=== PATIENT | male | born 1950 | race Caucasian/White ===

== ENCOUNTER 2016-08-04 12:07 | Inpatient (IN) | payer MEDICARE, BC ==
--- NOTE | 2016-08-04 12:50 | ED ---
SOB HPI - General Chief Complaint: Shortness of Breath Stated Complaint: SOB Time Seen by Provider: 08/04/16 12:25 Source: patient, family, RN notes reviewed Mode of arrival: wheelchair Limitations: no limitations - History of Present Illness Initial Comments: This is a 66-year-old male with a history of COPD history of gout and history of constipation who presents with complaints of one week of intermittent shortness of breath also is a fevers chills sweats some phlegm production. He states he gets worsening afternoon. Also he was told his hemoglobin was only 8. He also states she did have an constipation he started on MiraLAX and then later milk of magnesia for past several days he's been having increased bowel movements was abdomen somewhat tender he states. No overt chest pain. No other symptoms reported at this time the patient does state that he was hospitalized early in July for gout in addition to having been told his hemoglobin is low he also apparently has diminished kidney function. He actually was scheduled to get blood testing today. MD Complaint: shortness of breath, cough - Related Data Home Medications Medication Instructions Recorded Confirmed Folic Acid 0.4 mg PO DAILY 09/10/15 08/04/16 Glimepiride [Amaryl] 4 mg PO BID 09/10/15 08/04/16 Nitroglycerin Sl Tabs [Nitrostat] 0.4 mg SUBLINGUAL Q5M PRN 09/10/15 08/04/16 Aspirin EC [Ecotrin Low Dose] 81 mg PO BID 01/22/16 08/04/16 Carvedilol 18.75 mg PO BID 01/22/16 08/04/16 Atorvastatin [Lipitor] 40 mg PO HS 07/05/16 08/04/16 HYDROcodone/APAP 7.5-325MG [[place] 1 tab PO Q6HR PRN 07/05/16 08/04/16 7.5-325] Multivitamins, Thera [Multivitamin] 1 tab PO HS 07/05/16 08/04/16 Furosemide [Lasix] 40 mg PO DAILY 08/04/16 08/04/16 Lisinopril [Zestril] 20 mg PO DAILY 08/04/16 08/04/16 Spironolactone [Aldactone] 25 mg PO DAILY 08/04/16 08/04/16 Previous Rx's Medication Instructions Recorded Clopidogrel [Plavix] 75 mg PO DAILY #30 tab 09/13/15 Allopurinol [Zyloprim] 100 mg PO DAILY #30 tab 07/08/16 amLODIPine [Norvasc] 10 mg PO DAILY #30 tab 07/08/16 hydrALAZINE HCL [Apresoline] 25 mg PO TID #90 tab 07/08/16 Allergies Allergy/AdvReac Type Severity Reaction Status Date / Time Iodinated Contrast Media - Allergy Unknown Verified 08/04/16 13:05 Oral and [Iodinated Contrast Media - IV Dye] cephalexin monohydrate AdvReac Unknown Verified 08/04/16 13:05 [From Keflex] Penicillins AdvReac Nausea & Verified 08/04/16 13:05 Vomiting Sulfa (Sulfonamide AdvReac Nausea & Verified 08/04/16 13:05 Antibiotics) Vomiting Review of Systems ROS Statement: Those systems with pertinent positive or pertinent negative responses have been documented in the HPI. ROS Other: All systems not noted in ROS Statement are negative. Past Medical History Past Medical History: Coronary Artery Disease (CAD), Chest Pain / Angina, Heart Failure, Diabetes Mellitus, Hyperlipidemia, Hypertension, Myocardial Infarction (MD), Prostate Disorder, Renal Disease Additional Past Medical History / Comment(s): CHB (has pacemaker), ischemic cardiomyopathy, pt is to go to of next week for laser lead extration or RV and placement of BiV ICD, IDDM type II, recent R elbow bursitis/cellulitis, bilateral cataracts, pt thinks he may have gout, constipation Last Myocardial Infarction Date:: 10/05/15 History of Any Multi-Drug Resistant Organisms: None Reported Past Surgical History: Coronary Bypass/CABG, Heart Catheterization, Heart Catheterization With Stent, Hernia Repair, Pacemaker Additional Past Surgical History / Comment(s): 10/22/15 upper extremity venogram , 2011 triple bypass at [facility], 2006 PCI with stent cx, 09/2015 PCI with stent to LAD, 10/2015 ccath treat medically, dual chamber pacemaker initial insertion 2004 and replaced in 2011, umbillical hernia repair, several nose sx d/t 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 Defibriliator in january 2016 Past Anesthesia/Blood Transfusion Reactions: No Reported Reaction Date of Last Stent Placement:: 09/2015 Type of Cardiac Device: Permanent Pacemaker Device Placement Date:: 2011 Past Psychological History: No Psychological Hx Reported Additional Psychological History / Comment(s): Pt states he resides with Shaunna. He is independent. He uses no assistive device. He drives. He has no home care use. Smoking Status: Former smoker Past Alcohol Use History: Daily Additional Past Alcohol Use History / Comment(s): smoked >40 years quit 2-16-12 , drinks 2 beer daily Past Drug Use History: None Reported - Past Family History Father Family Medical History: CVA/TIA Additional Family Medical History / Comment(s): age 83 had several strokes Mother Family Medical History: Cancer, Liver Disease, Osteoarthritis (OA) Additional Family Medical History / Comment(s): mom is still alive at age 91, hx breast cancer, emphysema (pt stated she never smoked) General Exam - General Exam Comments Initial Comments: This is a well-developed well-nourished awake alert oriented 3 male Limitations: no limitations General appearance: alert, in no apparent distress Head exam: Present: atraumatic, normocephalic, normal inspection Eye exam: Present: normal appearance, PERRL, EOMI. Absent: scleral icterus, conjunctival injection, periorbital swelling ENT exam: Present: normal exam, mucous membranes moist Neck exam: Present: normal inspection. Absent: tenderness, meningismus, lymphadenopathy Respiratory exam: Present: rales, decreased breath sounds. Absent: respiratory distress, wheezes, rhonchi, stridor Cardiovascular Exam: Present: regular rate, normal rhythm, normal heart sounds. Absent: systolic murmur, diastolic murmur, rubs, gallop, clicks GI/Abdominal exam: Present: soft, tenderness, normal bowel sounds. Absent: distended, guarding, rebound, rigid, bruit, pulsatile mass Rectal exam: Present: deferred Extremities exam: Present: normal inspection, full ROM, normal capillary refill , pedal edema. Absent: tenderness, joint swelling, calf tenderness Back exam: Present: normal inspection Neurological exam: Present: alert, oriented X3, CN II-XII intact Psychiatric exam: Present: normal affect, normal mood Skin exam: Present: warm, dry, intact, normal color. Absent: rash Course Vital Signs 08/04/16 08/04/16 08/04/16 12:15 12:42 12:59 Temperature 97.6 F Pulse Rate 61 64 Respiratory 18 18 18 Rate Blood Pressure 150/70 161/71 O2 Sat by Pulse 96 96 Oximetry 08/04/16 08/04/16 13:36 14:34 Temperature Pulse Rate 63 67 Respiratory 18 18 Rate Blood Pressure 169/77 170/87 O2 Sat by Pulse 97 97 Oximetry - Reevaluation(s) Reevaluation #1: 08/04/16 14:48 Reevaluation patient reveals mildly increased aeration way down demonstrates bilateral rales. Medical Decision Making - Medical Decision Making I did discuss findings with the patient family patient be admitted for evaluation by cardiology as well as nephrology. - Lab Data Result diagrams: 08/04/16 12:57 08/04/16 12:57 Lab Results 08/04/16 08/04/16 08/04/16 Range/Units 12:57 12:57 12:57 WBC 7.0 (3.8-10.6) k/uL RBC 3.24 L (4.30-5.90) m/uL Hgb 9.3 L D (13.0-17.5) gm/dL Hct 29.1 L (39.0-53.0) % MCV 89.9 (80.0-100.0) fL MCH 28.6 (25.0-35.0) pg MCHC 31.8 (31.0-37.0) g/dL RDW 13.9 (11.5-15.5) % Plt Count 127 L (150-450) k/uL Neutrophils % 83 % Lymphocytes % 7 % Monocytes % 5 % Eosinophils % 4 % Basophils % 0 % Neutrophils # 5.8 (1.3-7.7) k/uL Lymphocytes # 0.5 L (1.0-4.8) k/uL Monocytes # 0.4 (0-1.0) k/uL Eosinophils # 0.3 (0-0.7) k/uL Basophils # 0.0 (0-0.2) k/uL Hypochromasia Slight PT (9.0-12.0) sec INR (<1.1) APTT (22.0-30.0) sec Sodium 141 (137-145) mmol/L Potassium 6.0 H (3.5-5.1) mmol/L Chloride 108 H (98-107) mmol/L Carbon Dioxide 23 (22-30) mmol/L Anion Gap 10 mmol/L BUN 44 H (9-20) mg/dL Creatinine 2.03 H (0.66-1.25) mg/dL Est GFR (MDRD) Af Amer 40 (>60 ml/min/1.73 sqM) Est GFR (MDRD) Non-Af 33 (>60 ml/min/1.73 sqM) Glucose 81 (74-99) mg/dL Plasma Lactic Acid [place] (0.7-2.0) mmol/L Calcium 9.8 (8.4-10.2) mg/dL Magnesium 3.0 H (1.6-2.3) mg/dL Total Bilirubin 0.6 (0.2-1.3) mg/dL AST 32 (17-59) U/L ALT 40 (21-72) U/L Alkaline Phosphatase 119 (38-126) U/L Total Creatine Kinase 44 L (55-170) U/L CK-MB (CK-2) 1.1 (0.0-2.4) ng/mL CK-MB (CK-2) Rel Index 2.5 Troponin I 0.025 (0.000-0.034) ng/mL NT-Pro-B Natriuret Pep pg/mL Total Protein 6.2 L (6.3-8.2) g/dL Albumin 3.5 (3.5-5.0) g/dL Amylase 67 (30-110) U/L Lipase 68 (23-300) U/L Urine Color Urine Appearance (Clear) Urine pH (5.0-8.0) Ur Specific Mineral (1.001-1.035) Urine Protein (Negative) Urine Glucose (UA) (Negative) Urine Ketones (Negative) Urine Blood (Negative) Urine Nitrate (Negative) Urine Bilirubin (Negative) Urine Urobilinogen (<2.0) mg/dL Ur Leukocyte Esterase (Negative) Urine RBC (0-5) /hpf Urine WBC (0-5) /hpf Urine Mucus (None) /hpf 08/04/16 08/04/16 08/04/16 Range/Units 12:57 12:57 12:57 WBC (3.8-10.6) k/uL RBC (4.30-5.90) m/uL Hgb (13.0-17.5) gm/dL Hct (39.0-53.0) % MCV (80.0-100.0) fL MCH (25.0-35.0) pg MCHC (31.0-37.0) g/dL RDW (11.5-15.5) % Plt Count (150-450) k/uL Neutrophils % % Lymphocytes % % Monocytes % % Eosinophils % % Basophils % % Neutrophils # (1.3-7.7) k/uL Lymphocytes # (1.0-4.8) k/uL Monocytes # (0-1.0) k/uL Eosinophils # (0-0.7) k/uL Basophils # (0-0.2) k/uL Hypochromasia PT 10.0 (9.0-12.0) sec INR 1.0 (<1.1) APTT 20.5 L (22.0-30.0) sec Sodium (137-145) mmol/L Potassium (3.5-5.1) mmol/L Chloride (98-107) mmol/L Carbon Dioxide (22-30) mmol/L Anion Gap mmol/L BUN (9-20) mg/dL Creatinine (0.66-1.25) mg/dL Est GFR (MDRD) Af Amer (>60 ml/min/1.73 sqM) Est GFR (MDRD) Non-Af (>60 ml/min/1.73 sqM) Glucose (74-99) mg/dL Plasma Lactic Acid [place] <0.5 L (0.7-2.0) mmol/L Calcium (8.4-10.2) mg/dL Magnesium (1.6-2.3) mg/dL Total Bilirubin (0.2-1.3) mg/dL AST (17-59) U/L ALT (21-72) U/L Alkaline Phosphatase (38-126) U/L Total Creatine Kinase (55-170) U/L CK-MB (CK-2) (0.0-2.4) ng/mL CK-MB (CK-2) Rel Index Troponin I (0.000-0.034) ng/mL NT-Pro-B Natriuret Pep 2320 pg/mL Total Protein (6.3-8.2) g/dL Albumin (3.5-5.0) g/dL Amylase (30-110) U/L Lipase (23-300) U/L Urine Color Urine Appearance (Clear) Urine pH (5.0-8.0) Ur Specific Mineral (1.001-1.035) Urine Protein (Negative) Urine Glucose (UA) (Negative) Urine Ketones (Negative) Urine Blood (Negative) Urine Nitrate (Negative) Urine Bilirubin (Negative) Urine Urobilinogen (<2.0) mg/dL Ur Leukocyte Esterase (Negative) Urine RBC (0-5) /hpf Urine WBC (0-5) /hpf Urine Mucus (None) /hpf 08/04/16 Range/Units 12:57 WBC (3.8-10.6) k/uL RBC (4.30-5.90) m/uL Hgb (13.0-17.5) gm/dL Hct (39.0-53.0) % MCV (80.0-100.0) fL MCH (25.0-35.0) pg MCHC (31.0-37.0) g/dL RDW (11.5-15.5) % Plt Count (150-450) k/uL Neutrophils % % Lymphocytes % % Monocytes % % Eosinophils % % Basophils % % Neutrophils # (1.3-7.7) k/uL Lymphocytes # (1.0-4.8) k/uL Monocytes # (0-1.0) k/uL Eosinophils # (0-0.7) k/uL Basophils # (0-0.2) k/uL Hypochromasia PT (9.0-12.0) sec INR (<1.1) APTT (22.0-30.0) sec Sodium (137-145) mmol/L Potassium (3.5-5.1) mmol/L Chloride (98-107) mmol/L Carbon Dioxide (22-30) mmol/L Anion Gap mmol/L BUN (9-20) mg/dL Creatinine (0.66-1.25) mg/dL Est GFR (MDRD) Af Amer (>60 ml/min/1.73 sqM) Est GFR (MDRD) Non-Af (>60 ml/min/1.73 sqM) Glucose (74-99) mg/dL Plasma Lactic Acid [place] (0.7-2.0) mmol/L Calcium (8.4-10.2) mg/dL Magnesium (1.6-2.3) mg/dL Total Bilirubin (0.2-1.3) mg/dL AST (17-59) U/L ALT (21-72) U/L Alkaline Phosphatase (38-126) U/L Total Creatine Kinase (55-170) U/L CK-MB (CK-2) (0.0-2.4) ng/mL CK-MB (CK-2) Rel Index Troponin I (0.000-0.034) ng/mL NT-Pro-B Natriuret Pep pg/mL Total Protein (6.3-8.2) g/dL Albumin (3.5-5.0) g/dL Amylase (30-110) U/L Lipase (23-300) U/L Urine Color Light Yellow Urine Appearance Clear (Clear) Urine pH 5.5 (5.0-8.0) Ur Specific Mineral 1.005 (1.001-1.035) Urine Protein 1+ H (Negative) Urine Glucose (UA) Negative (Negative) Urine Ketones Negative (Negative) Urine Blood Negative (Negative) Urine Nitrate Negative (Negative) Urine Bilirubin Negative (Negative) Urine Urobilinogen <2.0 (<2.0) mg/dL Ur Leukocyte Esterase Negative (Negative) Urine RBC <1 (0-5) /hpf Urine WBC <1 (0-5) /hpf Urine Mucus Rare H (None) /hpf - EKG Data -: EKG Interpreted by Ne EKG shows normal: sinus rhythm (Pacemaker rhythm rate is 63. Arrival 180 QRS duration 158 daily since QTC of 480/491 no definite acute changes.) - Radiology Data Radiology results: report reviewed (Review the x-ray shows evidence of increased markings consistent with congestive failure.), image reviewed Critical Care Time Critical Care Time: Yes Critical Care Time: 32 minutes which includes initial history physical lab and x-ray evaluation. Reevaluation patient to responsive therapy. Review of old charting available. Discussion with patient family regarding findings. Discussed with the hospitalist. Initial orders and documentation the above. Disposition Clinical Impression: Congestive heart failure, Failure of outpatient treatment, Renal insufficiency syndrome, Bronchospasm, acute Disposition: ADMITTED IP TO THIS [facility] Condition: Stable
[2016-08-04 13:13] LABS: Appearance,Urine Clear (Clear); Bilirubin,Urine Negative (Negative); Glucose,Urine (UA) Negative (Negative); Ketones,Urine Negative (Negative); Leukocyte Esterase,Urine Negative (Negative); Mucus,Urine Rare /hpf; Nitrite,Urine Negative (Negative); PH, Urine 5.5 (5.0-8.0); Particle Count 672; Protein,Urine 1+ (Negative); RBC,Urine <1 /hpf (0-5); Specific Gravity,Urine 1.005 (1.001-1.035); UA Billing (MACRO vs. MICRO) MICRO; Urobilinogen,Urine <2.0 mg/dL (<2.0); WBC,Urine <1 /hpf (0-5)
[2016-08-04 13:20] LABS: Basophils % (A) 0 %; CH 28.2; CHCM 31.5; Eosinophils # (A) 0.3 k/uL (0-0.7); Eosinophils % (A) 4 %; HCT 29.1 % (39.0-53.0); HDW 2.88; Hypochromasia Slight; Luc # (Auto) 0.11; Luc % (Auto) 2; Lymphocytes # (A) 0.5 k/uL (1.0-4.8); Lymphocytes % (A) 7 %; MCH 28.6 pg (25.0-35.0); MCHC 31.8 g/dL (31.0-37.0); MCV 89.9 fL (80.0-100.0); Mean Platelet Volume 9.3; Monocytes # (A) 0.4 k/uL (0-1.0); Monocytes % (A) 5 %; Neutrophils # (A) 5.8 k/uL (1.3-7.7); Neutrophils % (A) 83 %; RBC 3.24 m/uL (4.30-5.90); RDW 13.9 % (11.5-15.5); WBC (Perox) 7.51
[2016-08-04 13:22] LABS: Calcium 9.8 mg/dL (8.4-10.2); Total Bilirubin 0.6 mg/dL (0.2-1.3)
[2016-08-04 13:27] LABS: HGB 9.3 gm/dL (13.0-17.5)
[2016-08-04 13:36] LABS: Total Protein 6.2 g/dL (6.3-8.2)
[2016-08-04 13:44] LABS: Partial Thromboplastin Time 20.5 sec (22.0-30.0)
--- NOTE | 2016-08-04 13:49 | XR ---
Abdomen HISTORY: Difficulty in breathing, shortness of breath, constipation Frontal view of the abdomen on 2 images, no comparisons Patient is post median sternotomy, fractured sternal wire present inferiorly. Intracardiac defibrilla tor leads are present. The heart is enlarged. Lung bases are clear. No bowel obstruction or pneumoper itoneum evident. There are air-filled loops of bowel with air-fluid levels without bowel distention. Probable vascular calcifications are present within the pelvis. Degenerative disc changes in the visu alized spine. I question some calcifications overlying the kidneys. Entire abdomen is not included on the exam. IMPRESSION: There are some limitations, there may be an underlying ileus or enteritis, follow-up as i ndicated should bowel obstruction be suspected clinically. Possible abdominal calcifications, difficu lt to exclude nephrolithiasis.
--- NOTE | 2016-08-04 13:51 | XR ---
EXAMINATION TYPE: XR chest 2V DATE OF EXAM: 08/04/2016 1:16 PM COMPARISON: Prior chest x-ray 07 July 2016 HISTORY: Difficulty breathing, shortness of breath TECHNIQUE: Frontal and lateral views of the chest are obtained. FINDINGS: Patient is post median sternotomy, inferior mediastinal wires fractured. Intracardiac defi brillator leads are overlying appropriate positions. No pneumothorax or sizable pleural effusion. The re are overlying cardiac leads. Interstitium is increased but improved. Increased AP diameter of the chest compatible with underlying COPD. The aorta is dense. Some minimal patchy increased density pres ent at the posterior costophrenic angle may be indicative of atelectasis or edema, correlate to exclu de pneumonia. IMPRESSION: Correlate for component of pulmonary venous hypertension and interstitial edema. Addition al findings above.
[2016-08-04 13:57] LABS: Creatine Kinase MB 1.1 ng/mL (0.0-2.4); Troponin I 0.025 ng/mL (0.000-0.034)
[2016-08-04] MEDS ORDERED: NITROGLYCERIN OINT 1 INCH/GM PACKET TOPICAL STA (14:49)
[2016-08-04] MEDS ORDERED: FUROSEMIDE 10 MG/ML 4 ML VIAL IV STA (14:49)
[2016-08-04] MEDS ORDERED: HYDROcodone/APAP 7.5-325MG 1 EACH TAB PO PRN (14:58)
[2016-08-04] MEDS ORDERED: FUROSEMIDE 10 MG/ML 4 ML VIAL IV SCH (15:00)
[2016-08-04] MEDS ORDERED: LEVOFLOXACIN 750MG-D5W PMX 750 MG in DEXTROSE/WATER 1 150ML.BAG IVPB STA (15:01)
[2016-08-04] MEDS: SODIUM CHLORIDE 0.9% 1,000 ML IV SCH (15:40)
[2016-08-04] MEDS ORDERED: IPRATROPIUM-ALBUTEROL 3 ML NEB INHALATION SCH (16:00)
[2016-08-04 17:15] LABS: Glucose,Whole Blood 88 mg/dL (75-99)
[2016-08-04] MEDS: hydrALAZINE HCL 25 MG TAB PO SCH ×2 (17:53→21:03)
[2016-08-04] MEDS: NITROGLYCERIN OINT 1 INCH/GM PACKET TOPICAL SCH ×2 (17:54→21:02)
[2016-08-04] MEDS: INSULIN LISPRO (humaLOG) 300 UNIT/3 ML VIAL SQ SCH ×2 (17:54→21:02)
[2016-08-04] MEDS ORDERED: IPRATROPIUM-ALBUTEROL 3 ML NEB INHALATION PRN (19:04)
[2016-08-04] MEDS: IPRATROPIUM-ALBUTEROL 3 ML NEB INHALATION SCH (20:20)
[2016-08-04 20:42] LABS: Glucose,Whole Blood 141 mg/dL (75-99)
[2016-08-04] MEDS ORDERED: SODIUM POLYSTYRENE SULFONATE 15 GM/60 ML BOTTLE PO STA (20:55)
[2016-08-04] MEDS: ATORVASTATIN 40 MG TAB PO SCH (21:03)
[2016-08-04] MEDS: CARVEDILOL 6.25 MG TAB PO SCH (21:03)
[2016-08-04] MEDS: GLIMEPIRIDE 4 MG TAB PO SCH (21:03)
[2016-08-04] MEDS: ASPIRIN 81 MG CHEW PO SCH (21:04)
[2016-08-04] MEDS: MULTIVITAMINS, THERA 1 EACH TAB PO SCH (21:04)
[2016-08-04] MEDS: FUROSEMIDE 10 MG/ML 4 ML VIAL IV SCH (22:59)
[2016-08-05] MEDS ORDERED: ALPRAZolam 0.25 MG TAB PO PRN (00:43)
[2016-08-05] MEDS ORDERED: TEMAZEPAM 15 MG CAP PO PRN (00:43)
[2016-08-05 06:21] LABS: Glucose,Whole Blood 81 mg/dL (75-99)
[2016-08-05] MEDS: INSULIN LISPRO (humaLOG) 300 UNIT/3 ML VIAL SQ SCH ×4 (06:36→20:45)
[2016-08-05] MEDS: FUROSEMIDE 10 MG/ML 4 ML VIAL IV SCH ×3 (06:40→21:45)
[2016-08-05] MEDS: CARVEDILOL 6.25 MG TAB PO SCH ×2 (07:54→20:48)
[2016-08-05] MEDS: amLODIPine 10 MG TAB PO SCH (07:55)
[2016-08-05] MEDS: ASPIRIN 81 MG CHEW PO SCH ×2 (07:55→20:48)
[2016-08-05] MEDS: CLOPIDOGREL 75 MG TAB PO SCH (07:55)
[2016-08-05] MEDS: ALLOPURINOL 100 MG TAB PO SCH (07:55)
[2016-08-05] MEDS: hydrALAZINE HCL 25 MG TAB PO SCH ×3 (07:56→20:48)
[2016-08-05] MEDS: NITROGLYCERIN OINT 1 INCH/GM PACKET TOPICAL SCH ×2 (08:01→12:09)
[2016-08-05] MEDS: GLIMEPIRIDE 4 MG TAB PO SCH ×2 (08:01→20:48)
[2016-08-05] MEDS: IPRATROPIUM-ALBUTEROL 3 ML NEB INHALATION SCH ×4 (08:48→19:26)
[2016-08-05] MEDS ORDERED: SPIRONOLACTONE 25 MG TAB PO SCH (09:00)
[2016-08-05] MEDS ORDERED: FUROSEMIDE 40 MG TAB PO SCH (09:00)
[2016-08-05] MEDS ORDERED: LISINOPRIL 20 MG TAB PO SCH (09:00)
[2016-08-05 09:13] LABS: Basophils % (A) 0 %; CH 28.1; CHCM 31.3; Eosinophils # (A) 0.2 k/uL (0-0.7); Eosinophils % (A) 5 %; HCT 28.5 % (39.0-53.0); Hypochromasia Slight; Luc # (Auto) 0.07; Luc % (Auto) 1; Lymphocytes # (A) 0.5 k/uL (1.0-4.8); Lymphocytes % (A) 10 %; MCH 28.5 pg (25.0-35.0); MCHC 31.7 g/dL (31.0-37.0); Mean Platelet Volume 9.6; Monocytes # (A) 0.3 k/uL (0-1.0); Monocytes % (A) 6 %; Neutrophils # (A) 3.8 k/uL (1.3-7.7); Neutrophils % (A) 78 %; RBC 3.17 m/uL (4.30-5.90); RDW 13.6 % (11.5-15.5); WBC 4.8 k/uL (3.8-10.6); WBC (Perox) 5.42
[2016-08-05 09:37] LABS: Calcium 10.2 mg/dL (8.4-10.2); Potassium 4.5 mmol/L (3.5-5.1); Total Bilirubin 0.4 mg/dL (0.2-1.3); Total Protein 5.9 g/dL (6.3-8.2)
--- NOTE | 2016-08-05 10:18 | HP ---
DATE OF ADMISSION: DATE OF SERVICE: 08/04/2016 CHIEF COMPLAINT: Shortness of breath. HISTORY OF PRESENT ILLNESS: This 66-year-old gentleman with a past medical history of multiple medical problems including CAD, history of chest pain, CHF, diabetes mellitus, hypertension, hyperlipidemia, myocardial infarction, prostate disorder, history of pacemaker, history of CAD, CABG and stent being followed by Dr. Sykes and Micaela Dey in the outpatient setting was complaining of shortness of breath over the past several days, which has increased in intensity. Patient also has orthopnea. The patient also had increasing weakness with bilateral leg edema also. Because of increasing problems, the patient came to [facility] and was admitted for further evaluation. The patient also has significant issues with constipation. Patient was taking MiraLAX and trying different [id number] products also. The patient was hospitalized in July when patient had renal failure and also flareup for gouty arthritis as well as CHF with ejection fraction of 50% also. The patient is thought to have ischemic cardiomyopathy also. The patient will be closely monitored. There is no history of fever or rigors. No history of headache, loss of consciousness or seizures at this time. PAST MEDICAL HISTORY: History of CAD, history of chest pain, CHF, diabetes mellitus type 2, hyperlipidemia, hypertension, history of myocardial infarction, prostate disorder, elbow, CAD, CABG, stent. Medications prior to admission include home medications are: 1. Aldactone 25 mg p.o. daily. 2. Nitrostat 0.4 sublingual p.r.n. 3. Zestril 20 mg daily. 4. Multivitamins 1 p.o. daily. 5. Hydrocodone 7.5 q.6 p.r.n. 6. Amaryl 4 mg b.i.d. 7. Folic acid 0.4 daily. 8. Apresoline 25 mg t.i.d. 9. Plavix 75 mg p.o. daily. 10. Lipitor 40 mg q.h.s. 11. Ecotrin 81 mg b.i.d. 12. Norvasc 10 mg p.o. daily. 13. Coreg 18.75 mg p.o. b.i.d. 14. Lasix 40 mg p.o. daily. 15. Zyloprim 100 mg p.o. daily. ALLERGIES: IODINATED CONTRAST DYE, CEPHALEXIN, PENICILLIN, SULFA. FAMILY HISTORY: History of CVA, TIA in the family. SOCIAL HISTORY: history of smoking. Occasional alcohol intake. REVIEW OF SYSTEMS: ENT: Diminished hearing and vision. CARDIOVASCULAR: As mentioned earlier. RESPIRATORY: As mentioned earlier. GI: No nausea. : As mentioned earlier. NERVOUS SYSTEM: No numbness or weakness. ALLERGY/IMMUNOLOGY: No asthma or hayfever. MUSCULOSKELETAL: As mentioned earlier. HEMATOLOGY/ONCOLOGY: No history of anemia. ENDOCRINE: No history of hypothyroidism. CONSTITUTIONAL: As mentioned earlier. DERMATOLOGY: Negative. RHEUMATOLOGY: Negative. PSYCHIATRY: As mentioned earlier. PHYSICAL EXAMINATION: the patient is alert and oriented x2. Pulse is 68, blood pressure 176/82, respirations 20, temperature 97 degrees, pulse ox 98% on 2 L. HEENT: Conjunctivae normal. NECK: No jugular venous distention. CARDIOVASCULAR: S1 and S2, muffled. RESPIRATORY: Breath sounds diminished at the bases. A few scattered rhonchi. A few basal crackles. ABDOMEN: Soft, nontender. No mass palpable. LEGS: Minimal edema. NERVOUS SYSTEM: Higher function as mentioned earlier. Moves all 4 limbs. No focal motor or sensory deficits. LYMPHATICS: No lymphadenopathy of neck, axillae or groin. SKIN: No ulcers, rashes or bleeding. Labs are WBC 7.0, hemoglobin is 9.3, otherwise, potassium 6, creatinine is 2.03, total protein 6.2. ASSESSMENT: 1. Congestive heart failure acute exacerbation with acute on chronic systolic dysfunction, ejection fraction 40%. 2. cardiomyopathy. 3. Acute renal failure, acute on chronic kidney disease with prerenal factors. 4. Chronic kidney disease, stage III. 5. Hyperkalemia secondary to renal failure. 6. Anemia, normocytic anemia of chronic disease. 7. Thrombocytopenia. 8. History of coronary artery disease. 9. History of congestive heart failure. 10. History of diabetes mellitus type 2. 11. Hypertension. 12. Hyperlipidemia. 13. History of pacemaker. 14. Ischemic cardiomyopathy. 15. Diabetes mellitus type 2. 16. History of coronary artery disease, coronary artery bypass grafting and stent. 17. History of pacemaker. 18. History of nicotine dependence. 19. History of AICD. 20. History of peripheral vascular disease. 21. History of gout. 22. History of moderate pulmonary hypertension, mild to moderate mitral regurgitation. 23. FULL CODE. RECOMMENDATIONS AND DISCUSSION: In this 66-year-old gentleman who presented with multiple complex medical issues, we will monitor the patient closely. Continue the current medications. Continue symptomatic treatment. Otherwise, at this time I recommend repeat labs in the morning and Nephrology and Cardiology consultations. Avoid potassium and MIC inhibitors and continue to monitor. Further recommendations to follow. Home medication reconciliation. Prognosis guarded. Further recommendations to follow. A copy of dictation forwarded to Dr. Sykes who is the primary physician. TIFFANIE
[2016-08-05 10:30] LABS: Hemoglobin A1C 7.6 % (4.2-6.1)
[2016-08-05] MEDS: FOLIC ACID 1 MG TAB PO SCH (12:03)
[2016-08-05 12:09] LABS: Glucose,Whole Blood 288 mg/dL (75-99)
--- NOTE | 2016-08-05 14:05 | P.CRDCN ---
History of Present Illness Consult date: 08/05/16 Requesting physician: Ramsey Nam Consult reason: congestive heart failure Chief complaint: Shortness of breath History of present illness: This is a 66-year-old gentleman with known history of hypertension, diabetes, hyperlipidemia, prior bypass surgery in 2011, patient also underwent successful stenting of the LAD in September of last year, with subsequent heart cath in September which revealed patent stents in the distal LAD. Patient follows regularly with Dr. Flower in the office. He also has history of prior pacemaker implantation with upgrade to by V AICD which was performed in September of last year.. Patient presents to the hospital with a 4-5 duration of worsening shortness of breath and peripheral edema. Patient states that he's also been constipated for the same duration of time Chest x-ray on admission revealed pulmonary venous hypertension and interstitial edema. Ultrasound of the abdomen was performed because of symptoms of constipation, it revealed there may be underlying ileus or enteritis. EKG shows a paced rhythm. Most recent echocardiogram with Doppler study was performed one month ago revealed an ejection fraction of 55-60%. Data reviewed. Hemoglobin 9.3 yesterday, 9.0 today. Potassium 6.0 yesterday, 4.5 today. BUN 42, creatinine 2.1. Magnesium level 3.0. BNP level 2320. Troponins 0.025, 020, 0.028. Patient was initiated on IV Lasix in the emergency room, his weight today is down 2 kg. He continues to diurese well. At the time of my examination today, patient states he is ready feeling much better. Past Medical History Past Medical History: Coronary Artery Disease (CAD), Chest Pain / Angina, Heart Failure, Diabetes Mellitus, Hyperlipidemia, Hypertension, Myocardial Infarction ([place]), Prostate Disorder, Renal Disease Additional Past Medical History / Comment(s): CHB (has pacemaker), ischemic cardiomyopathy, pt is to go to [facility] next week for laser lead extration or RV and placement of BiV ICD, IDDM type II, recent R elbow bursitis/cellulitis, bilateral cataracts, pt thinks he may have gout,pt stated was taking medication to help with his constipation and now is having loose stool Last Myocardial Infarction Date:: 10/05/15 History of Any Multi-Drug Resistant Organisms: None Reported Past Surgical History: Coronary Bypass/CABG, Heart Catheterization, Heart Catheterization With Stent, Hernia Repair, Pacemaker Additional Past Surgical History / Comment(s): 10/22/15 upper extremity venogram , 2011 triple bypass at [facility], 2006 PCI with stent cx, 09/2015 PCI with stent to LAD, 10/2015 ccath treat medically, dual chamber pacemaker initial insertion 2004 and replaced in 2011, umbillical hernia repair, several nose sx d/t 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 Defibriliator in january 2016 Past Anesthesia/Blood Transfusion Reactions: No Reported Reaction Date of Last Stent Placement:: 09/2015 Type of Cardiac Device: Permanent Pacemaker Device Placement Date:: 2011 Past Psychological History: No Psychological Hx Reported Additional Psychological History / Comment(s): Pt states he resides with [place]un[place]. He is independent. He uses no assistive device. He drives. He has no home care use. Smoking Status: Former smoker Past Alcohol Use History: Daily Additional Past Alcohol Use History / Comment(s): smoked >40 years quit 2-12 , drinks 2 beer daily Past Drug Use History: None Reported - Past Family History Father Family Medical History: CVA/TIA Additional Family Medical History / Comment(s): age 83 had several strokes Mother Family Medical History: Cancer, Liver Disease, Osteoarthritis (OA) Additional Family Medical History / Comment(s): mom is still alive at age 91, hx breast cancer, emphysema (pt stated she never smoked) Medications and Allergies Home Medications Medication Instructions Recorded Confirmed Type Folic Acid 0.4 mg PO DAILY 09/10/15 08/04/16 History Glimepiride [Amaryl] 4 mg PO BID 09/10/15 08/04/16 History Nitroglycerin Sl Tabs [Nitrostat] 0.4 mg SUBLINGUAL Q5M PRN 09/10/15 08/04/16 History Aspirin EC [Ecotrin Low Dose] 81 mg PO BID 01/22/16 08/04/16 History Carvedilol 18.75 mg PO BID 01/22/16 08/04/16 History Atorvastatin [Lipitor] 40 mg PO HS 07/05/16 08/04/16 History HYDROcodone/APAP 7.5-325MG [Ver[place] 1 tab PO Q6HR PRN 07/05/16 08/04/16 History 7.5-325] Multivitamins, Thera [Multivitamin] 1 tab PO HS 07/05/16 08/04/16 History Furosemide [Lasix] 40 mg PO DAILY 08/04/16 08/04/16 History Lisinopril [Zestril] 20 mg PO DAILY 08/04/16 08/04/16 History Spironolactone [Aldactone] 25 mg PO DAILY 08/04/16 08/04/16 History Allergies Allergy/AdvReac Type Severity Reaction Status Date / Time Iodinated Contrast Media - Allergy Unknown Verified 08/04/16 13:05 Oral and [Iodinated Contrast Media - IV Dye] cephalexin monohydrate AdvReac Unknown Verified 08/04/16 13:05 [From Keflex] Penicillins AdvReac Nausea & Verified 08/04/16 13:05 Vomiting Sulfa (Sulfonamide AdvReac Nausea & Verified 08/04/16 13:05 Antibiotics) Vomiting Physical Exam Vitals: Vital Signs Temp Pulse Pulse Resp BP BP Pulse Ox 08/05/16 12:00 66 17 166/77 95 08/05/16 09:05 78 08/05/16 08:48 80 17 93 L 08/05/16 08:00 59 L 17 08/05/16 07:53 97.9 F 59 L 17 177/72 93 L 08/05/16 04:00 97.2 F L 62 18 155/70 97 08/05/16 00:00 97.5 F L 60 18 157/76 95 08/04/16 20:27 80 08/04/16 20:16 80 08/04/16 20:00 97.2 F L 63 18 177/78 94 L 08/04/16 16:49 97 F L 76 68 20 176/82 98 08/04/16 16:46 68 08/04/16 16:08 98.0 F 08/04/16 15:34 67 18 166/74 96 08/04/16 14:58 63 18 182/79 96 Intake and Output 08/04/16 08/05/16 08/05/16 22:59 06:59 14:59 Intake Total 300 200 200 Output Total 855 1475 800 Balance -255 -1078 -808 Intake: IV 200 Sodium Chloride 0.9% 1, 200 000 ml @ 20 mls/hr IV . Q24H [facility] Rx#:[id number] Oral 300 200 Output: Urine 775 1475 800 Other: Voiding Method Toilet Toilet Toilet Urinal Urinal Urinal Weight 86.7 kg 85 kg PHYSICAL EXAMINATION: HEENT: Head is atraumatic, normocephalic. Pupils equal, round. Neck is supple. There is no elevated jugular venous pressure. HEART EXAMINATION: Heart S1, S2 normal. No murmur or gallop heard. CHEST EXAMINATION: Lungs reveal diminished air entry to bilateral bases. ABDOMEN: Soft, nontender. Bowel sounds are heard. No organomegaly noted. EXTREMITIES:1+ pulses with trace edema bilaterally NEUROLOGIC patient is awake, alert and oriented -3. . Results 08/05/16 03:18 08/05/16 03:18 Cardiac Enzymes 08/04/16 08/05/16 08/05/16 Range/Units 19:21 03:18 03:18 AST 18 (17-59) U/L Troponin I 0.020 0.028 (0.000-0.034) ng/mL CBC 08/05/16 Range/Units 03:18 WBC 4.8 (3.8-10.6) k/uL RBC 3.17 L (4.30-5.90) m/uL Hgb 9.0 L (13.0-17.5) gm/dL Hct 28.5 L (39.0-53.0) % Plt Count 139 L (150-450) k/uL Comprehensive Metabolic Panel 08/05/16 Range/Units 03:18 Sodium 143 (137-145) mmol/L Potassium 4.5 (3.5-5.1) mmol/L Chloride 107 (98-107) mmol/L Carbon Dioxide 25 (22-30) mmol/L BUN 42 H (9-20) mg/dL Creatinine 2.15 H (0.66-1.25) mg/dL Glucose 93 (74-99) mg/dL Calcium 10.2 (8.4-10.2) mg/dL AST 18 (17-59) U/L ALT 39 (21-72) U/L Alkaline Phosphatase 117 (38-126) U/L Total Protein 5.9 L (6.3-8.2) g/dL Albumin 3.3 L (3.5-5.0) g/dL Current Medications Generic Name Dose Route Start Last Admin Trade Name Freq PRN Reason Stop Dose Admin Acetaminophen/Hydrocodone Bitart 1 each 08/04/16 14:58 Verona 7.5-325 PO Q6HR PRN Pain Albuterol/Ipratropium 3 ml 08/04/16 19:04 Duoneb 0.5 Mg-3 Mg/3 Ml Soln INHALATION RT-QID PRN Shortness Of Breath Or Wheezing Albuterol/Ipratropium 3 ml 08/04/16 20:00 08/05/16 08:48 Duoneb 0.5 Mg-3 Mg/3 Ml Soln INHALATION 3 ml RT-QID [facility]IN Administration Allopurinol 100 mg 08/05/16 09:00 08/05/16 07:55 Zyloprim PO 100 mg DAILY [facility] Administration Alprazolam 0.25 mg 08/05/16 00:43 Xanax PO TID PRN Anxiety Amlodipine Besylate 10 mg 08/05/16 09:00 08/05/16 07:55 Norvasc PO 10 mg DAILY [facility] Administration Aspirin 81 mg 08/04/16 21:00 08/05/16 07:55 Aspirin PO 81 mg BID AG[facility]IN Administration Atorvastatin Calcium 40 mg 08/04/16 21:00 08/04/16 21:03 Lipitor PO 40 mg HS [facility] Administration Carvedilol 18.75 mg 08/04/16 21:00 08/05/16 07:54 Coreg PO 18.75 mg BID AG[facility]IN Administration Clopidogrel Bisulfate 75 mg 08/05/16 09:00 08/05/16 07:55 Plavix PO 75 mg DAILY AG[facility] Administration Folic Acid 0.5 mg 08/05/16 12:00 08/05/16 12:03 Folic Acid PO 0.5 mg DAILY@1200 [facility] Administration Furosemide 40 mg 08/04/16 23:00 08/05/16 06:40 Lasix IV 40 mg Q8H [facility] Administration Glimepiride 4 mg 08/04/16 21:00 08/05/16 08:01 Amaryl PO 4 mg BID [facility] Administration Hydralazine HCl 25 mg 08/04/16 16:00 08/05/16 07:56 Apresoline PO 25 mg TID [facility] Administration Sodium Chloride 1,000 mls @ 20 mls/hr 08/04/16 15:00 08/04/16 15:40 Saline 0.9% IV 20 mls/hr .Q24H [facility] Administration Insulin Human Lispro 0 unit 08/04/16 17:30 08/05/16 12:09 Humalog SQ Not Given ACHS [facility] Protocol Lisinopril 20 mg 08/05/16 09:00 08/05/16 07:56 Zestril PO 20 mg DAILY [facility] Administration Multivitamins 1 each 08/04/16 21:00 08/04/16 21:04 Theragran PO 1 each HS AG[facility] Administration Nitroglycerin 1 inch 08/04/16 18:00 08/05/16 12:09 Nitro-Bid Oint TOPICAL Not Given QID [facility] Spironolactone 25 mg 08/05/16 09:00 08/05/16 12:04 Aldactone PO 25 mg DAILY [facility] Administration Temazepam 15 mg 08/05/16 00:43 Restoril PO HS PRN Insomnia Intake and Output 08/04/16 08/05/16 08/05/16 22:59 06:59 14:59 Intake Total 300 200 200 Output Total 775 1475 800 Balance -024 -4350 -600 Intake: IV 200 Sodium Chloride 0.9% 1, 200 000 ml @ 20 mls/hr IV . Q24H [facility] Rx#:[id number] Oral 300 200 Output: Urine 775 1475 800 Other: Voiding Method Toilet Toilet Toilet Urinal Urinal Urinal Weight 86.7 kg 85 kg 08/05/16 03:18 08/05/16 03:18 EKG Interpretations (text) EKG shows a paced rhythm Assessment and Plan Plan: Assessment and plan #1 congestive heart failure, diastolic in nature. Patient currently on IV Lasix. #2 known history of coronary artery disease with prior bypass surgery in 1999 and, patient also underwent stenting of the LAD last year. #3 hypertension #4 hyperlipidemia # 5 diabetes #6 prior history of smoking, patient quit smoking in 2011 #7 history of pacemaker implantation without upgrade of BIV AICD last year. #8 peripheral vascular disease #9 anemia #10 acute on chronic renal insufficiency. Plan From cardiology's perspective, we'll continue IV Lasix, continue to monitor intake and output along with daily weights and daily lytes BUN and creatinine. Recommend nephrology consultation. Stool for occult blood will also be sent. We will hold lisinopril because of the abnormal renal function, further recommendations to follow. DNP note has been reviewed, I agree with a documented findings and plan of care. Patient was seen and examined.
--- NOTE | 2016-08-05 14:06 | CONS ---
DATE OF CONSULTATION: REASON FOR CONSULT: Renal failure. HISTORY OF PRESENT ILLNESS: Patient is a 66-year-old white male who was admitted to the hospital with shortness of breath, increased lower extremity edema and fluid overload. He states he is feeling better. He is maintained on diuretics. He is known to have CKD and is scheduled to see us in the office in the next week or so. Patient's serum creatinine was at 2.1 mg/dL, prior creatinine had been as low as 1.1 in December of 2015. After that it had been as high as 2.50 on 07/05/2016 and then decreased to 1.83 on 07/08/2016. PAST MEDICAL HISTORY: Hypertension, dyslipidemia, coronary artery disease, type 2 diabetes, history of NV, ischemic cardiomyopathy, gout. PAST SURGICAL HISTORY: Coronary artery bypass surgery, cardiac catheterization, hernia repair, pacemaker placement, hemorrhoidectomy, defibrillator. SOCIAL HISTORY: The patient is an ex-smoker. No history of drug abuse or alcohol abuse. REVIEW OF SYSTEMS: As per HPI. Other systems negative. Medications included at home: Folic acid, Amaryl, Nitrostat, Lipitor, Lasix, Zestril, Aldactone, hydralazine, Norvasc, Zyloprim, Plavix. Allergies include PENICILLIN, SULFA, IV DYE, KEFLEX. On examination, patient is comfortable, awake, alert, oriented x3. He is not in any acute distress. Blood pressure is 166/77, heart rate 93 per minute. He is afebrile. Examination of the heart S1 and S2. Examination of the lungs, bilateral breath sounds are heard. Decreased breath sounds in bases with basal crackles. Abdomen is soft, nontender. Examination of the lower extremities shows edema 1+ bilaterally. AGILE [employer] exam is grossly intact. Labs show sodium 143, potassium 4.5, serum creatinine 2.15 mg/dL, hemoglobin 9.3 g/dL, UA shows 1+ protein. No blood is noted. Chest x-ray on admission showed evidence of CHF, pulmonary vascular congestion and interstitial edema. ASSESSMENT: 1. Acute kidney injury, most likely cardiorenal, currently maintained on Lasix 40 mg q.8 hours, which we can continue. 2. Chronic kidney disease with an element of acute kidney injury. Patient's serum creatinine has been as low as 1.1 in December of 2015. He is scheduled to see us in the office for evaluation of the CKD and possible acute kidney injury as well. 3. Congestive heart failure and fluid overload. Continue diuretics. Echocardiogram done on 07/08/2016 showed ejection fraction of about 55% to 60% with moderate dilatation of the right ventricle and severely dilated left atrium with moderate concentric left ventricular hypertrophy. Plan is to follow up as outpatient for chronic kidney disease. Continue current dose of Lasix. Repeat labs in the a.m. Avoid nephrotoxic agents. If blood pressure remains elevated, we can maintain patient on low-dose MIC inhibitors as long as the renal function does not worsen. I will also check iron studies for work-up for anemia if it was not done on his last admission. Thank you for this consultation. Will continue to follow the patient with you during his hospitalization.
[2016-08-05] MEDS ORDERED: LACTULOSE 20 GM/30 ML CUP PO SCH (15:00)
[2016-08-05] MEDS ORDERED: NA PHOS,M-B/NA PHOS,DI-BA 133 ML ENEMA RECTAL STA (15:04)
[2016-08-05] MEDS: DOCUSATE 100 MG CAP PO SCH ×2 (15:25→21:45)
[2016-08-05] MEDS: SODIUM CHLORIDE 0.9% 1,000 ML IV SCH (15:54)
--- NOTE | 2016-08-05 15:56 | CDI ---
In responding to this query, please exercise your independent professional judgment. The [facility] Coding Staff and Clinical Documentation Specialists appreciate your assistance in clarifying documentation, maintaining compliance with coding guidelines, accurately documenting patients condition and capturing severity of illness. The fact that a question is asked does not imply that any particular answer is desired or expected. Communication forms are a method of clarifying documentation and are not made part of the Legal Health Record. Thank you in advance for your clarification. Last Revision, October 2015 Marga Orta [address] [place] [address] Documentation Clarification Form Date: 08/05/2016 3:45:00 PM From: Josiane Manzano CCS, CCDS Admit Date: 08/04/2016 2:54:00 PM Patient Name: Cory Magdaleno Visit Number: [id number] Discharge Date: Dr. Rigoberto Carbajal: CHF is documented in the cardiology consultation as diastolic with no further acuity. History/Risk Factors: CAD, Ischemic Cardiomyopathy status post CABG, Heart Cath w/stent, Pacemaker. Also has IDDM II and CKD II per H&P. Clinical Indicators: Presented with SOB, low hemoglobin (8). VS: P 61, R 18 (sob), BP 150/70, PO 96 ra BNP: 2320 Echocardiogram Results: (from one month ago): EF 55-60%. Chest X Ray: Correlate for pulmonary venous hypertension & interstitial edema. Treatment: IV Lasix. Nitropaste, IV Levaquin, Albuterol INH, Insulin sc Consults: Nephrology, Cardiology, Dietitian, Cardiac Rehab In your professional opinion, can you please clarify the acuity and type of CHF if known? Acute Chronic Acute on Chronic AND Systolic Diastolic Systolic and Diastolic Cor Pulmonale (Right Sided HF w/ Pulmonary HTN) Unable to determine Other, please specify If known, please specify if Heart Failure is due to: Hypertension Rheumatic Fever Please document in your progress notes and discharge summary in order to capture severity of illness and risk of mortality. Include clinical findings that support your diagnosis. FYI: Press F11 to launch patient chart. Place X here if this finding has no clinical significance, is not applicable or if you are not able to provide any additional documentation. Thank You. X I did not see this patient. FREEDOMD
[2016-08-05 17:02] LABS: Glucose,Whole Blood 192 mg/dL (75-99)
[2016-08-05] MEDS: MULTIVITAMINS, THERA 1 EACH TAB PO SCH (20:48)
[2016-08-05] MEDS: ATORVASTATIN 40 MG TAB PO SCH (20:48)
[2016-08-05 21:08] LABS: Glucose,Whole Blood 172 mg/dL (75-99)
[2016-08-06 06:04] LABS: Basophils % (A) 1 %; CH 28.5; CHCM 32.1; Eosinophils # (A) 0.2 k/uL (0-0.7); Eosinophils % (A) 4 %; HCT 29.2 % (39.0-53.0); HDW 2.88; HGB 9.1 gm/dL (13.0-17.5); Luc % (Auto) 2; Lymphocytes # (A) 0.6 k/uL (1.0-4.8); Lymphocytes % (A) 11 %; MCH 27.8 pg (25.0-35.0); MCHC 31.2 g/dL (31.0-37.0); MCV 89.1 fL (80.0-100.0); Mean Platelet Volume 9.8; Monocytes # (A) 0.3 k/uL (0-1.0); Monocytes % (A) 6 %; Neutrophils # (A) 3.6 k/uL (1.3-7.7); Neutrophils % (A) 76 %; RBC 3.27 m/uL (4.30-5.90); WBC 4.8 k/uL (3.8-10.6); WBC (Perox) 5.01
[2016-08-06 06:13] LABS: Calcium 10.2 mg/dL (8.4-10.2); Potassium 4.1 mmol/L (3.5-5.1)
[2016-08-06] MEDS: INSULIN LISPRO (humaLOG) 300 UNIT/3 ML VIAL SQ SCH ×4 (06:19→21:46)
[2016-08-06] MEDS: FUROSEMIDE 10 MG/ML 4 ML VIAL IV SCH ×3 (06:25→21:45)
[2016-08-06 06:41] LABS: Glucose,Whole Blood 105 mg/dL (75-99)
[2016-08-06] MEDS: hydrALAZINE HCL 25 MG TAB PO SCH ×3 (08:19→21:45)
[2016-08-06] MEDS: ASPIRIN 81 MG CHEW PO SCH ×2 (08:19→21:45)
[2016-08-06] MEDS: GLIMEPIRIDE 4 MG TAB PO SCH ×2 (08:19→21:45)
[2016-08-06] MEDS: CARVEDILOL 6.25 MG TAB PO SCH ×2 (08:19→21:45)
[2016-08-06] MEDS: DOCUSATE 100 MG CAP PO SCH ×2 (08:19→21:44)
[2016-08-06] MEDS: ALLOPURINOL 100 MG TAB PO SCH (08:19)
[2016-08-06] MEDS: amLODIPine 10 MG TAB PO SCH (08:19)
[2016-08-06] MEDS: CLOPIDOGREL 75 MG TAB PO SCH (08:19)
[2016-08-06] MEDS: IPRATROPIUM-ALBUTEROL 3 ML NEB INHALATION SCH ×4 (08:24→19:07)
--- NOTE | 2016-08-06 09:49 | PN ---
DATE OF SERVICE: 08/05/2016 This is a 66-year-old gentleman who was admitted with shortness of breath and CHF acute exacerbation. Is being closely monitored. Seen and evaluated the patient with the nurse practitioner. Please refer to the nurse practitioner's notes and impression document as ascribed for further information.
[2016-08-06] MEDS: FOLIC ACID 1 MG TAB PO SCH (11:10)
[2016-08-06 11:51] LABS: Glucose,Whole Blood 251 mg/dL (75-99)
[2016-08-06 14:25] VITALS: BMI 26.2
--- NOTE | 2016-08-06 14:53 | P.PN ---
Subjective Principal diagnosis: Diastolic congestive heart failure acute on chronic This is a 66-year-old gentleman with known history of hypertension, diabetes, hyperlipidemia, prior bypass surgery in 2011, patient also underwent successful stenting of the LAD in September of last year, with subsequent heart cath in September which revealed patent stents in the distal LAD. Patient follows regularly with Dr. Higgins in the office. He also has history of prior pacemaker implantation with upgrade to by V AICD which was performed in September of last year.. Patient presents to the hospital with a 4-5 duration of worsening shortness of breath and peripheral edema. Patient states that he's also been constipated for the same duration of time Chest x-ray on admission revealed pulmonary venous hypertension and interstitial edema. Ultrasound of the abdomen was performed because of symptoms of constipation, it revealed there may be underlying ileus or enteritis. EKG shows a paced rhythm. Most recent echocardiogram with Doppler study was performed one month ago revealed an ejection fraction of 55-60%. Patient diuresed well on IV Lasix. Total weight is down 6 kg. Hemoglobin 9.1, BUN 41, creatinine 2.1. Objective - Vital Signs Vital signs: Vital Signs Temp 97.5 F L 08/06/16 08:10 Pulse 84 08/06/16 11:55 Resp 12 08/06/16 11:21 BP 161/70 08/06/16 11:10 Pulse Ox 95 08/06/16 11:45 Intake & Output 08/05/16 08/06/16 08/06/16 18:59 06:59 18:59 Intake Total 200 240 560 Output Total 800 1200 400 Balance -600 -960 160 Weight 80.4 kg 80.4 kg Intake: IV 160 Sodium Chloride 0.9% 1, 160 000 ml @ 20 mls/hr IV . Q24H [facility] Rx#:[id number] Oral 200 240 400 Output: Urine 800 1200 400 Other: Voiding Method Toilet Toilet Urinal Urinal # Voids 1 # Bowel Movements 1 - Exam PHYSICAL EXAMINATION: HEENT: Head is atraumatic, normocephalic. Pupils equal, round. Neck is supple. There is no elevated jugular venous pressure. HEART EXAMINATION: Heart S1, S2 normal. No murmur or gallop heard. CHEST EXAMINATION: Lungs reveal diminished air entry to bilateral bases. ABDOMEN: Soft, nontender. Bowel sounds are heard. No organomegaly noted. EXTREMITIES:1+ pulses with trace edema bilaterally NEUROLOGIC patient is awake, alert and oriented -3. - Labs CBC & Chem 7: 08/06/16 05:41 08/06/16 05:41 Labs: Abnormal Lab Results - Last 24 Hours (Table) 08/05/16 08/05/16 08/06/16 Range/Units 16:48 20:45 05:41 RBC 3.27 L (4.30-5.90) m/uL Hgb 9.1 L (13.0-17.5) gm/dL Hct 29.2 L (39.0-53.0) % Plt Count 136 L (150-450) k/uL Lymphocytes # 0.6 L (1.0-4.8) k/uL BUN (9-20) mg/dL Creatinine (0.66-1.25) mg/dL Glucose (74-99) mg/dL POC Glucose (mg/dL) 192 H 172 H (75-99) mg/dL 08/06/16 08/06/16 08/06/16 Range/Units 05:41 06:18 11:42 RBC (4.30-5.90) m/uL Hgb (13.0-17.5) gm/dL Hct (39.0-53.0) % Plt Count (150-450) k/uL Lymphocytes # (1.0-4.8) k/uL BUN 41 H (9-20) mg/dL Creatinine 2.10 H (0.66-1.25) mg/dL Glucose 108 H (74-99) mg/dL POC Glucose (mg/dL) 105 H 251 H (75-99) mg/dL Assessment and Plan Plan: Assessment and plan #1 congestive heart failure, diastolic in nature, acute on chronic. Patient currently on IV Lasix. #2 known history of coronary artery disease with prior bypass surgery in 1999 and, patient also underwent stenting of the LAD last year. #3 hypertension #4 hyperlipidemia # 5 diabetes #6 prior history of smoking, patient quit smoking in 2011 #7 history of pacemaker implantation without upgrade of BIV AICD last year. #8 peripheral vascular disease #9 anemia #10 acute on chronic renal insufficiency. Plan From cardiology's perspective, we'll discontinue the IV Lasix today and start the patient on Lasix 40 mg one tablet by mouth twice a day. He may be able to be discharged home once cleared by the primary, a follow-up appointment will be made in the office post discharge with Dr. Field. DNP note has been reviewed, I agree with a documented findings and plan of care. Patient was seen and examined.
[2016-08-06] MEDS: SODIUM CHLORIDE 0.9% 1,000 ML IV SCH (16:02)
[2016-08-06 16:51] LABS: Glucose,Whole Blood 162 mg/dL (75-99)
--- NOTE | 2016-08-06 19:23 | PN ---
Patient is seen for follow-up for chronic kidney disease and an acute kidney injury. He is currently comfortable, awake, not in any acute distress. His weight is down by about 5 kg from yesterday. He was being treated for congestive heart failure and fluid overload. Lasix is currently at 40 mg IV q.8 hours. Serum creatinine has been staying at about 2.02 to 2.1 mg/dL. On examination, the patient is comfortable. Blood pressure is 161/70, heart rate 70 per minute. The patient is afebrile. Examination of the heart S1 and S2. Examination of the lungs: Bilateral breath sounds are heard. Decreased breath sounds in bases. No crackles or wheezing is heard. Abdomen is soft, nontender. Examination of lower extremities shows in no significant edema. Labs show sodium 143, potassium 4.1, BUN 41, serum creatinine 2.1. Hemoglobin 9.1 g/dL. ASSESSMENT: 1. Chronic kidney disease, NKF stage III with previous creatinine at 1.1 in December 2015 and subsequently staying at about 1.9 to 2 mg/dL in July 2016. Etiology is likely nephrosclerosis with an element of diabetic nephropathy as patient does have proteinuria. 2. Acute kidney injury, mainly cardiorenal. Renal function is stable. May continue with current dose of IV Lasix and repeat labs in the a.m. 3. Hypertension, now improved. 4. Cardiomyopathy with ejection fraction of 55% to 60% with moderate right ventricular dilatation and severely dilated left atrium with evidence of moderate concentric LVH. PLAN: Repeat labs in a.m. May continue current dose of IV Lasix.
--- NOTE | 2016-08-06 19:41 | PN ---
DATE OF SERVICE: 08/06/2016 This 66-year-old gentleman admitted with shortness of breath, congestive heart failure acute exacerbation, is closely monitored. Seen and evaluated the patient along with the nurse practitioner. Please refer to the nurse practitioner notes and impression documented for further information. Closely follow with Cardiology. Guarded prognosis. Further recommendations to follow.
[2016-08-06 21:09] LABS: Glucose,Whole Blood 245 mg/dL (75-99)
[2016-08-06] MEDS: MULTIVITAMINS, THERA 1 EACH TAB PO SCH (21:45)
[2016-08-06] MEDS: ATORVASTATIN 40 MG TAB PO SCH (21:45)
[2016-08-07] MEDS: FUROSEMIDE 10 MG/ML 4 ML VIAL IV SCH (06:10)
[2016-08-07 06:21] LABS: Glucose,Whole Blood 122 mg/dL (75-99)
[2016-08-07] MEDS: INSULIN LISPRO (humaLOG) 300 UNIT/3 ML VIAL SQ SCH (06:37)
[2016-08-07 06:44] LABS: Basophils % (A) 1 %; CH 28.3; CHCM 31.9; Eosinophils # (A) 0.2 k/uL (0-0.7); Eosinophils % (A) 3 %; HDW 2.87; HGB 9.3 gm/dL (13.0-17.5); Hypochromasia Slight; Luc # (Auto) 0.13; Luc % (Auto) 2; Lymphocytes # (A) 0.5 k/uL (1.0-4.8); Lymphocytes % (A) 9 %; MCH 28.6 pg (25.0-35.0); MCHC 32.1 g/dL (31.0-37.0); Mean Platelet Volume 9.2; Monocytes # (A) 0.4 k/uL (0-1.0); Monocytes % (A) 6 %; Neutrophils # (A) 4.7 k/uL (1.3-7.7); Neutrophils % (A) 79 %; RBC 3.26 m/uL (4.30-5.90); RDW 13.8 % (11.5-15.5); WBC 5.9 k/uL (3.8-10.6); WBC (Perox) 6.18
[2016-08-07 06:49] LABS: Calcium 10.6 mg/dL (8.4-10.2); Potassium 4.4 mmol/L (3.5-5.1)
[2016-08-07] MEDS: hydrALAZINE HCL 25 MG TAB PO SCH (08:00)
[2016-08-07] MEDS: amLODIPine 10 MG TAB PO SCH (08:00)
[2016-08-07] MEDS: GLIMEPIRIDE 4 MG TAB PO SCH (08:00)
[2016-08-07] MEDS: CARVEDILOL 6.25 MG TAB PO SCH (08:00)
[2016-08-07] MEDS: DOCUSATE 100 MG CAP PO SCH (08:01)
[2016-08-07] MEDS: CLOPIDOGREL 75 MG TAB PO SCH (08:01)
[2016-08-07] MEDS: ALLOPURINOL 100 MG TAB PO SCH (08:01)
[2016-08-07] MEDS: ASPIRIN 81 MG CHEW PO SCH (08:01)
[2016-08-07] MEDS: IPRATROPIUM-ALBUTEROL 3 ML NEB INHALATION SCH ×2 (08:31→11:52)
[2016-08-07 09:28] VITALS: RESP 14
[2016-08-07] MEDS: FOLIC ACID 1 MG TAB PO SCH (11:23)
[2016-08-07 11:40] VITALS: BP 148/69; TEMP 97.2
[2016-08-07 11:51] LABS: Glucose,Whole Blood 242 mg/dL (75-99)
[2016-08-07 12:01] VITALS: PULSE 68
--- NOTE | 2016-08-07 15:00 | P.PN ---
Subjective Principal diagnosis: Diastolic congestive heart failure acute on chronic This is a 66-year-old gentleman with known history of hypertension, diabetes, hyperlipidemia, prior bypass surgery in 2011, patient also underwent successful stenting of the LAD in September of last year, with subsequent heart cath in September which revealed patent stents in the distal LAD. Patient follows regularly with Dr. Higgins in the office. He also has history of prior pacemaker implantation with upgrade to by V AICD which was performed in September of last year.. Patient presents to the hospital with a 4-5 duration of worsening shortness of breath and peripheral edema. Patient has diuresed well on IV Lasix. Creatinine 2.4 today. Patient feeling significantly better overall. Cleared by nephrology for discharge. Objective - Vital Signs Vital signs: Vital Signs Temp 97.2 F L 08/07/16 11:39 Pulse 68 08/07/16 12:01 Resp 14 08/07/16 11:39 BP 148/69 08/07/16 11:39 Pulse Ox 94 L 08/07/16 11:39 Intake & Output 08/06/16 08/07/16 08/07/16 18:59 06:59 18:59 Intake Total 796 120 236 Output Total 800 1000 Balance -4 -880 236 Weight 80.4 kg 81.1 kg Intake: IV 160 Sodium Chloride 0.9% 1, 160 000 ml @ 20 mls/hr IV . Q24H [facility] Rx#:[id number] Oral 636 120 236 Output: Urine 800 1000 Other: Voiding Method Toilet Urinal - Exam PHYSICAL EXAMINATION: HEENT: Head is atraumatic, normocephalic. Pupils equal, round. Neck is supple. There is no elevated jugular venous pressure. HEART EXAMINATION: Heart S1, S2 normal. No murmur or gallop heard. CHEST EXAMINATION: Lungs reveal improvement in air entry to bilateral bases. ABDOMEN: Soft, nontender. Bowel sounds are heard. No organomegaly noted. EXTREMITIES:1+ pulses with trace edema bilaterally NEUROLOGIC patient is awake, alert and oriented -3. - Labs CBC & Chem 7: 08/07/16 06:24 08/07/16 06:24 Labs: Abnormal Lab Results - Last 24 Hours (Table) 08/06/16 08/06/16 08/07/16 Range/Units 16:29 21:07 06:19 RBC (4.30-5.90) m/uL Hgb (13.0-17.5) gm/dL Hct (39.0-53.0) % Lymphocytes # (1.0-4.8) k/uL BUN (9-20) mg/dL Creatinine (0.66-1.25) mg/dL Glucose (74-99) mg/dL POC Glucose (mg/dL) 162 H 245 H 122 H (75-99) mg/dL Calcium (8.4-10.2) mg/dL 08/07/16 08/07/16 08/07/16 Range/Units 06:24 06:24 11:47 RBC 3.26 L (4.30-5.90) m/uL Hgb 9.3 L (13.0-17.5) gm/dL Hct 29.0 L (39.0-53.0) % Lymphocytes # 0.5 L (1.0-4.8) k/uL BUN 52 H (9-20) mg/dL Creatinine 2.40 H (0.66-1.25) mg/dL Glucose 131 H (74-99) mg/dL POC Glucose (mg/dL) 242 H (75-99) mg/dL Calcium 10.6 H (8.4-10.2) mg/dL Assessment and Plan Plan: Assessment and plan #1 congestive heart failure, diastolic in nature, acute on chronic. . #2 known history of coronary artery disease with prior bypass surgery in 1999 and, patient also underwent stenting of the LAD last year. #3 hypertension #4 hyperlipidemia # 5 diabetes #6 prior history of smoking, patient quit smoking in 2011 #7 history of pacemaker implantation without upgrade of BIV AICD last year. #8 peripheral vascular disease #9 anemia #10 acute on chronic renal insufficiency. Plan From cardiology's perspective, patient may be able to be discharged home today. Follow-up appointment will be made with cardiology in the office post discharge. DNP note has been reviewed, I agree with a documented findings and plan of care. Patient was seen and examined.
--- NOTE | 2016-08-07 22:35 | P.PN ---
Subjective Date of service 08/05/2016. Progress note being dictated for Dr. Mcknight. Interval history: This is a 66-year-old gentleman admitted with acute CHF exacerbation, CKD and multiple other medical issues. Diuresing well on Lasix IV push with 24-hour I&O reflecting a negative fluid balance. Mildly worsened renal function. Complains of constipation. Denies chest pain, palpitations or increasing shortness of breath. Objective - Vital Signs Vital signs: Vital Signs Temp 98 F 08/05/16 15:21 Pulse 60 08/05/16 15:21 Resp 17 08/05/16 15:21 BP 170/75 08/05/16 15:21 Pulse Ox 94 L 08/05/16 15:21 Intake & Output 08/05/16 08/05/16 08/06/16 06:59 18:59 06:59 Intake Total 320 200 Output Total 1700 800 Balance -1380 -600 Weight 85 kg Intake: IV 200 Sodium Chloride 0.9% 1, 200 000 ml @ 20 mls/hr IV . Q24H [facility] Rx#:[id number] Oral 120 200 Output: Urine 1700 800 Other: Voiding Method Toilet Toilet Urinal Urinal # Voids 1 # Bowel Movements 1 - Exam PHYSICAL EXAM: VITAL SIGNS: As above GENERAL: [Sitting up in bed, no acute distress] HEENT: [Pupils equal conjunctiva normal.] NECK: [Supple, no JVD] RESPIRATORY EFFORT:[Normal] LUNGS: Diminished, scattered rhonchi, occasional fine crackles, no wheezing CARDIOVASCULAR[regular S1 and S2, positive systolic murmur, trace edema] GI: [Abdomen soft, nontender, positive bowel sounds.] PSYCH: [Alert and oriented -3, mood and affect normal.] NEURO: [No focal deficits, moves all 4 extremities, strength and sensation grossly intact] - Labs CBC & Chem 7: 08/07/16 06:24 08/07/16 06:24 Labs: Abnormal Lab Results - Last 24 Hours (Table) 08/04/16 08/05/16 08/05/16 Range/Units 20:39 03:18 03:18 RBC 3.17 L (4.30-5.90) m/uL Hgb 9.0 L (13.0-17.5) gm/dL Hct 28.5 L (39.0-53.0) % Plt Count 139 L (150-450) k/uL Lymphocytes # 0.5 L (1.0-4.8) k/uL BUN (9-20) mg/dL Creatinine (0.66-1.25) mg/dL POC Glucose (mg/dL) 141 H (75-99) mg/dL Hemoglobin A1c 7.6 H (4.2-6.1) % Iron (49-181) ug/dL % Saturation (20-50) % Total Protein (6.3-8.2) g/dL Albumin (3.5-5.0) g/dL 08/05/16 08/05/16 08/05/16 Range/Units 03:18 03:18 11:51 RBC (4.30-5.90) m/uL Hgb (13.0-17.5) gm/dL Hct (39.0-53.0) % Plt Count (150-450) k/uL Lymphocytes # (1.0-4.8) k/uL BUN 42 H (9-20) mg/dL Creatinine 2.15 H (0.66-1.25) mg/dL POC Glucose (mg/dL) 288 H (75-99) mg/dL Hemoglobin A1c (4.2-6.1) % Iron 41 L (49-181) ug/dL % Saturation 13.0 L (20-50) % Total Protein 5.9 L (6.3-8.2) g/dL Albumin 3.3 L (3.5-5.0) g/dL 08/05/16 Range/Units 16:48 RBC (4.30-5.90) m/uL Hgb (13.0-17.5) gm/dL Hct (39.0-53.0) % Plt Count (150-450) k/uL Lymphocytes # (1.0-4.8) k/uL BUN (9-20) mg/dL Creatinine (0.66-1.25) mg/dL POC Glucose (mg/dL) 192 H (75-99) mg/dL Hemoglobin A1c (4.2-6.1) % Iron (49-181) ug/dL % Saturation (20-50) % Total Protein (6.3-8.2) g/dL Albumin (3.5-5.0) g/dL Assessment and Plan Plan: 1. [Acute on chronic congestive heart failure exacerbation, systolic dysfunction , EF 40%]. 2. [Ischemic Cardiomyopathy]. 3. [Acute on chronic kidney disease with prerenal factors, stage III]. 4. [Hyperkalemia secondary to no failure]. 5. [Normocytic anemia chronic disease]. 6. Thrombocytopenia. 7. CAD, history of CABG and stenting 8. Diabetes mellitus type 2 9. Hypertension 10. Hyperlipidemia 11. Permanent Pacemaker. 12. History of nicotine dependence 13. Peripheral vascular disease 14. History of gout 15. Moderate pulmonary hypertension 16. Mild to moderate mitral regurgitation Plan: Continue on current medication regime , Lasix, monitoring and symptomatic treatment. Scheduled lactulose ,fleets enema ordered for complaints of constipation. Nephrology consulted given worsening renal function, with MIC inhibitor held. Increase ambulation as tolerated. Prognosis guarded. Further recommendations to follow. The impression and plan of care has been dictated as directed. : I performed a H&P examination of this patient and discussed the same with the dictator. I agree with the dictator's note. Any additional findings/opinions/ etc. will be noted.
--- NOTE | 2016-08-07 22:56 | P.PN ---
Subjective Date of service 08/06/2016. Progress note being dictated for Dr. Mcknight. Interval history: This is a 66-year-old gentleman admitted with acute CHF exacerbation, CKD and multiple other medical issues. Continues Diuresing well on Lasix IV push with 24-hour I&O reflecting a negative fluid balance. Breathing improving .Lasix being converted to oral today .Yesterday he had complained of constipation, had a large bowel movement prior to enema or lactulose being initiated Denies chest pain, palpitations or increasing shortness of breath. Objective - Vital Signs Vital signs: Vital Signs Temp 97.4 F L 08/06/16 16:22 Pulse 67 08/06/16 19:20 Resp 16 08/06/16 16:30 BP 130/69 08/06/16 16:22 Pulse Ox 95 08/06/16 16:22 Intake & Output 08/06/16 08/06/16 08/07/16 06:59 18:59 06:59 Intake Total 240 796 Output Total 1200 800 Balance -960 -4 Weight 80.4 kg 80.4 kg Intake: IV 160 Sodium Chloride 0.9% 1, 160 000 ml @ 20 mls/hr IV . Q24H [facility] Rx#:[id number] Oral 240 636 Output: Urine 1200 800 Other: Voiding Method Toilet Urinal - Exam PHYSICAL EXAM: VITAL SIGNS: As above GENERAL: [Sitting up at side of bed, no acute distress] HEENT: [Pupils equal conjunctiva normal.] NECK: [Supple, no JVD] RESPIRATORY EFFORT:[Normal] LUNGS: Diminished, scattered rhonchi, occasional fine crackles, no wheezing CARDIOVASCULAR[regular S1 and S2, positive systolic murmur, trace edema] GI: [Abdomen soft, nontender, positive bowel sounds.] PSYCH: [Alert and oriented -3, mood and affect normal.] NEURO: [No focal deficits, moves all 4 extremities, strength and sensation grossly intact] - Labs CBC & Chem 7: 08/07/16 06:24 08/07/16 06:24 Labs: Abnormal Lab Results - Last 24 Hours (Table) 08/06/16 08/06/16 08/06/16 Range/Units 05:41 05:41 06:18 RBC 3.27 L (4.30-5.90) m/uL Hgb 9.1 L (13.0-17.5) gm/dL Hct 29.2 L (39.0-53.0) % Plt Count 136 L (150-450) k/uL Lymphocytes # 0.6 L (1.0-4.8) k/uL BUN 41 H (9-20) mg/dL Creatinine 2.10 H (0.66-1.25) mg/dL Glucose 108 H (74-99) mg/dL POC Glucose (mg/dL) 105 H (75-99) mg/dL 08/06/16 08/06/16 08/06/16 Range/Units 11:42 16:29 21:07 RBC (4.30-5.90) m/uL Hgb (13.0-17.5) gm/dL Hct (39.0-53.0) % Plt Count (150-450) k/uL Lymphocytes # (1.0-4.8) k/uL BUN (9-20) mg/dL Creatinine (0.66-1.25) mg/dL Glucose (74-99) mg/dL POC Glucose (mg/dL) 251 H 162 H 245 H (75-99) mg/dL Assessment and Plan Plan: 1. [Acute on chronic congestive heart failure exacerbation, systolic dysfunction , EF 40%]. 2. [Ischemic Cardiomyopathy]. 3. [Acute on chronic kidney disease with prerenal factors, stage III]. 4. [Hyperkalemia secondary to no failure]. 5. [Normocytic anemia chronic disease]. 6. Thrombocytopenia. 7. CAD, history of CABG and stenting 8. Diabetes mellitus type 2 9. Hypertension 10. Hyperlipidemia 11. Permanent Pacemaker. 12. History of nicotine dependence 13. Peripheral vascular disease 14. History of gout 15. Moderate pulmonary hypertension 16. Mild to moderate mitral regurgitation Plan: Continue on current medication regime , Lasix, monitoring and symptomatic treatment. Follow closely with nephrology and cardiology. Increase ambulation as tolerated. Close monitoring of electrolytes and renal function with repeat labs ordered for a.m. Prognosis guarded. Further recommendations to follow. The impression and plan of care has been dictated as directed. : I performed a H&P examination of this patient and discussed the same with the dictator. I agree with the dictator's note. Any additional findings/opinions/ etc. will be noted.
[2016-08-08] MEDS ORDERED: FUROSEMIDE 10 MG/ML 4 ML VIAL IV SCH (09:00)
--- NOTE | 2016-08-08 10:23 | DS ---
DATE OF ADMISSION: 08/04/2016 DATE OF DISCHARGE: 08/07/2016 FINAL DIAGNOSES: 1. Congestive heart failure acute exacerbation with acute on chronic systolic dysfunction, ejection fraction 40%. 2. Possible cardiomyopathy. 3. Acute renal failure, acute on chronic kidney disease, with prerenal factors. 4. Chronic kidney disease stage 3. 5. Hyperkalemia secondary to renal failure. 6. Anemia, normocytic anemia of chronic disease. 7. Thrombocytopenia. 8. History of coronary artery disease. 9. History of congestive heart failure. 10. History of diabetes mellitus type 2. 11. Hypertension. 12. Hyperlipidemia. 13. History of pacemaker. 14. History of cardiomyopathy. 15. History of coronary artery disease, coronary artery bypass grafting and stent. 16. History of nicotine dependence. 17. History of automatic implantable cardioverter defibrillator. 18. History of peripheral vascular disease. 19. History of gout. 20. History of moderate pulmonary hypertension, mild to moderate mitral regurgitation. 21. FULL CODE. DISCHARGE DISPOSITION: The patient will be discharged in stable condition with guarded prognosis. HISTORY OF PRESENT ILLNESS: This 66-year-old gentleman with a past medical history of multiple medical problems was admitted with shortness of breath with possible CHF acute exacerbation. The patient was treated with diuretics. Patient improved significantly. Cardiology saw the patient and cleared the patient for discharge. On exam, vitals are stable. CARDIOVASCULAR: S1, S2 muffled. ABDOMEN: Soft. RESPIRATORY: A few rhonchi. DISCHARGE ADVICE AND MEDICATIONS: 1. Diet is cardiac. 2. Activity limited until followup. 3. Follow up with Dr. Pak and Dr. Sykes. Also, followup with Cardiology is recommended. 4. Medications are: a. Zyloprim 100 mg p.o. daily. b. Ecotrin 81 mg. c. Lipitor 40 mg q.h.s. d. Coreg 18.7 mg p.o. b.i.d. e. Plavix 75 mg p.o. daily. f. Colace 100 mg p.o. b.i.d. p.r.n. g. Folic acid 0.4 mg p.o. daily. h. Lasix 40 mg daily. i. Amaryl 4 mg p.o. b.i.d. j. Hydrocodone 7.5 every 6 hours p.r.n. k. Zestril 20 mg p.o. daily. l. mvi p.o. daily. m. Nitrostat 0.4 sublingual p.r.n. n. Aldactone 25 mg p.o. daily. o. Norvasc 10 mg p.o. daily. p. apresoline 25 mg p.o. t.i.d. The patient will be discharged in stable condition with a guarded prognosis. Follow up with Cardiology as well as recommended with Dr. Nolen. TIFFANIE
== END 2016-08-07 13:17 | disposition home or self-care (01) | DRG 291 ==
LOC: EC 12:07 → 6SEL 14:54
PROVIDERS: ADMIT Internal Medicine; ATTEND Internal Medicine
DX: I13.0 Hypertensive heart and chronic kidney disease with heart failure and stage 1 through stage 4 chronic kidney disease, or unspecified chronic kidney disease (principal); I50.23 Acute on chronic systolic (congestive) heart failure; N17.9 Acute kidney failure, unspecified; E11.21 Type 2 diabetes mellitus with diabetic nephropathy; I27.2 Other secondary pulmonary hypertension; D69.6 Thrombocytopenia, unspecified; E11.22 Type 2 diabetes mellitus with diabetic chronic kidney disease; N18.3 Chronic kidney disease, stage 3 (moderate); J44.9 Chronic obstructive pulmonary disease, unspecified; E87.5 Hyperkalemia; Z95.1 Presence of aortocoronary bypass graft; I73.9 Peripheral vascular disease, unspecified; K59.00 Constipation, unspecified; I25.10 Atherosclerotic heart disease of native coronary artery without angina pectoris; M10.9 Gout, unspecified; E78.5 Hyperlipidemia, unspecified; I25.2 Old myocardial infarction; I25.5 Ischemic cardiomyopathy; H26.9 Unspecified cataract; D63.8 Anemia in other chronic diseases classified elsewhere; I34.0 Nonrheumatic mitral (valve) insufficiency; N42.9 Disorder of prostate, unspecified; Z95.5 Presence of coronary angioplasty implant and graft; Z95.810 Presence of automatic (implantable) cardiac defibrillator; Z87.891 Personal history of nicotine dependence; Z79.02 Long term (current) use of antithrombotics/antiplatelets; Z79.82 Long term (current) use of aspirin; Z79.899 Other long term (current) drug therapy
CPT/HCPCS: 36415; 71020; 74000; 80048; 80053; 81001; 82150; 82550; 82553; 83036; 83540; 83550; 83605; 83690; 83735; 83880; 84484; 85025; 85610; 85730; 87040; 93005; 94640; 94760; 96365; 96375; 99291

== ENCOUNTER 2017-01-06 17:39 | Inpatient (IN) | payer MEDICARE, BC ==
--- NOTE | 2017-01-06 19:00 | XR ---
EXAMINATION TYPE: XR chest 1V DATE OF EXAM: 01/06/2017 COMPARISON: 08/04/2016 HISTORY: Short of breath TECHNIQUE: Single frontal view of the chest is obtained. FINDINGS: Heart is enlarged. There is mild pulmonary vascular congestion. There are sternal wires. T here is a left axillary pacemaker with the lead tips in the right ventricle. There are chest leads. T here is slight blunting of costophrenic angles. IMPRESSION: There is evidence of mild heart failure without change compared to last exam. No pulmona ry consolidation.
[2017-01-06 19:26] LABS: Anisocytosis Slight; Basophils % (A) 0 %; CH 28.4; CHCM 31.5; Eosinophils # (A) 0.2 k/uL (0-0.7); Eosinophils % (A) 3 %; HCT 27.4 % (39.0-53.0); HDW 2.83; HGB 8.7 gm/dL (13.0-17.5); Hypochromasia Slight; Luc % (Auto) 1; Lymphocytes # (A) 0.5 k/uL (1.0-4.8); Lymphocytes % (A) 6 %; MCH 28.7 pg (25.0-35.0); MCHC 31.5 g/dL (31.0-37.0); MCV 90.9 fL (80.0-100.0); Mean Platelet Volume 9.7; Monocytes # (A) 0.4 k/uL (0-1.0); Monocytes % (A) 5 %; Neutrophils # (A) 6.4 k/uL (1.3-7.7); Neutrophils % (A) 85 %; RBC 3.02 m/uL (4.30-5.90); RDW 16.1 % (11.5-15.5); WBC 7.6 k/uL (3.8-10.6); WBC (Perox) 7.45
[2017-01-06 19:42] LABS: Calcium 9.9 mg/dL (8.4-10.2); Potassium 5.4 mmol/L (3.5-5.1); Total Bilirubin 0.5 mg/dL (0.2-1.3); Total Protein 6.3 g/dL (6.3-8.2)
--- NOTE | 2017-01-06 19:53 | ED ---
SOB HPI - General Chief Complaint: Shortness of Breath Stated Complaint: diff breathing Time Seen by Provider: 01/06/17 17:54 Source: patient Mode of arrival: wheelchair Limitations: no limitations - History of Present Illness Initial Comments: This is a 66-year-old male with a history of CHF who presents here department for progressive shortness of breath and weight gain. The patient states is been on approximately 15 pounds over the last week. He states he is also been having exertional dyspnea. He denies any fevers or chills. No cough. No chest pain. No abdominal pain. He states he has not been drinking any more fluids than normal. 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 - Related Data Home Medications Medication Instructions Recorded Confirmed Folic Acid 0.4 mg PO DAILY 09/10/15 01/06/17 Glimepiride [Amaryl] 4 mg PO BID 09/10/15 01/06/17 Nitroglycerin Sl Tabs [Nitrostat] 0.4 mg SUBLINGUAL Q5M PRN 09/10/15 01/06/17 Aspirin EC [Ecotrin Low Dose] 81 mg PO BID 01/22/16 01/06/17 Carvedilol 25 mg PO BID 01/22/16 01/06/17 Atorvastatin [Lipitor] 40 mg PO HS 07/05/16 01/06/17 HYDROcodone/APAP 7.5-325MG [[place] 1 tab PO Q6HR PRN 07/05/16 01/06/17 7.5-325] Multivitamins, Thera [Multivitamin 1 tab PO HS 07/05/16 01/06/17 (formulary)] Furosemide [Lasix] 40 mg PO DAILY 08/04/16 01/06/17 Lisinopril [Zestril] 20 mg PO DAILY 08/04/16 01/06/17 Spironolactone [Aldactone] 25 mg PO DAILY 08/04/16 01/06/17 Insulin NPH Human Isophane 6 unit SQ HS 01/06/17 01/06/17 [Novolin N] hydrALAZINE HCL [Apresoline] 25 mg PO BID 01/06/17 01/06/17 Previous Rx's Medication Instructions Recorded Clopidogrel [Plavix] 75 mg PO DAILY #30 tab 09/13/15 Allopurinol [Zyloprim] 100 mg PO DAILY #30 tab 07/08/16 Docusate [Colace] 100 mg PO BID #60 cap 08/07/16 Allergies Allergy/AdvReac Type Severity Reaction Status Date / Time Iodinated Contrast Media - Allergy Unknown Verified 01/06/17 19:41 Oral and [Iodinated Contrast Media - IV Dye] cephalexin monohydrate AdvReac Unknown Verified 01/06/17 19:41 [From Keflex] Penicillins AdvReac Nausea & Verified 01/06/17 19:41 Vomiting Sulfa (Sulfonamide AdvReac Nausea & Verified 01/06/17 19:41 Antibiotics) Vomiting Review of Systems ROS Statement: Those systems with pertinent positive or pertinent negative responses have been documented in the HPI. ROS Other: All systems not noted in ROS Statement are negative. Past Medical History Past Medical History: Coronary Artery Disease (CAD), Chest Pain / Angina, Heart Failure, Diabetes Mellitus, Hyperlipidemia, Hypertension, Myocardial Infarction ([place]), Prostate Disorder, Renal Disease Additional Past Medical History / Comment(s): CHB (has pacemaker), ischemic cardiomyopathy, pt is to go to [facility] next week for laser lead extration or RV and placement of BiV ICD, IDDM type II, recent R elbow bursitis/cellulitis, bilateral cataracts, pt thinks he may have gout,pt stated was taking medication to help with his constipation and now is having loose stool Last Myocardial Infarction Date:: 10/05/15 History of Any Multi-Drug Resistant Organisms: None Reported Past Surgical History: Coronary Bypass/CABG, Heart Catheterization, Heart Catheterization With Stent, Hernia Repair, Pacemaker Additional Past Surgical History / Comment(s): 10/22/15 upper extremity venogram , 2011 triple bypass at [facility], 2006 PCI with stent cx, 09/2015 PCI with stent to LAD, 10/2015 [facility] treat medically, dual chamber pacemaker initial insertion 2004 and replaced in 2011, umbillical hernia repair, several nose sx d/t 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 Defibriliator in january 2016 Past Anesthesia/Blood Transfusion Reactions: No Reported Reaction Date of Last Stent Placement:: 09/2015 Type of Cardiac Device: Permanent Pacemaker Device Placement Date:: 2011 Past Psychological History: No Psychological Hx Reported Additional Psychological History / Comment(s): Pt states he resides with Shaun[place]. He is independent. He uses no assistive device. He drives. He has no home care use. Smoking Status: Former smoker Past Alcohol Use History: Daily Additional Past Alcohol Use History / Comment(s): smoked >40 years quit 2-16-12 , drinks 2 beer daily Past Drug Use History: None Reported - Past Family History Father Family Medical History: CVA/TIA Additional Family Medical History / Comment(s): age 83 had several strokes Mother Family Medical History: Cancer, Liver Disease, Osteoarthritis (OA) Additional Family Medical History / Comment(s): mom is still alive at age 91, hx breast cancer, emphysema (pt stated she never smoked) General Exam - General Exam Comments Initial Comments: Constitutional: Awake alert Appears comfortable Head: Normocephalic atraumatic Eyes: no conjunctival injection No scleral icterus EOMI Neck: No JVD Supple Heart: Regular rate rhythm normal S1-S2 no murmurs Lungs: Clear to auscultation bilaterally No wheezing bibasilar rales Abdomen: Soft nondistended nontender Extremities: Non edematous DP pulses intact Radial pulses intact Neuro: A&Ox3 No focal neurologic deficits Psych: Appropriate mood and affect Limitations: no limitations Course Vital Signs 01/06/17 01/06/17 01/06/17 17:50 18:29 20:00 Temperature 98.6 F 98 F Pulse Rate 60 60 Respiratory 20 16 12 Rate Blood Pressure 157/70 O2 Sat by Pulse 90 L 95 Oximetry - Reevaluation(s) Reevaluation #1: 01/06/17 19:52 EKG showing paced rhythm with a rate of 62. No abnormal ST segment changes or T -wave inversions. QTC is 481. Occasional PVC Medical Decision Making - Medical Decision Making Is a 66-year-old male presents emergency department for 15 pound weight gain over the last 3 weeks and also shortness of breath on exertion. The patient was found to be hypoxic when he exerted himself down to 86 and 87%. Chest x- ray was unremarkable. The patient also has some mild anemia of 8.7. He was trace guaiac positive. He was started on proton next. We'll admit for CHF exacerbation and anemia. - Lab Data Result diagrams: 01/06/17 18:15 01/06/17 18:15 Lab Results 01/06/17 01/06/17 01/06/17 Range/Units 18:15 18:15 18:15 WBC 7.6 (3.8-10.6) k/uL RBC 3.02 L (4.30-5.90) m/uL Hgb 8.7 L (13.0-17.5) gm/dL Hct 27.4 L (39.0-53.0) % MCV 90.9 (80.0-100.0) fL MCH 28.7 (25.0-35.0) pg MCHC 31.5 (31.0-37.0) g/dL RDW 16.1 H (11.5-15.5) % Plt Count 90 L (150-450) k/uL Neutrophils % 85 % Lymphocytes % 6 % Monocytes % 5 % Eosinophils % 3 % Basophils % 0 % Neutrophils # 6.4 (1.3-7.7) k/uL Lymphocytes # 0.5 L (1.0-4.8) k/uL Monocytes # 0.4 (0-1.0) k/uL Eosinophils # 0.2 (0-0.7) k/uL Basophils # 0.0 (0-0.2) k/uL Manual Slide Review Performed RBC Morphology Normal Hypochromasia Slight Anisocytosis Slight PT 10.6 (9.0-12.0) sec INR 1.1 (<1.1) APTT 21.6 L (22.0-30.0) sec Sodium 143 (137-145) mmol/L Potassium 5.4 H (3.5-5.1) mmol/L Chloride 109 H (98-107) mmol/L Carbon Dioxide 27 (22-30) mmol/L Anion Gap 7 mmol/L BUN 61 H (9-20) mg/dL Creatinine 2.74 H (0.66-1.25) mg/dL Est GFR (MDRD) Af Amer 28 (>60 ml/min/1.73 sqM) Est GFR (MDRD) Non-Af 23 (>60 ml/min/1.73 sqM) Glucose 68 L (74-99) mg/dL Calcium 9.9 (8.4-10.2) mg/dL Total Bilirubin 0.5 (0.2-1.3) mg/dL AST 39 (17-59) U/L ALT 51 (21-72) U/L Alkaline Phosphatase 106 (38-126) U/L CK-MB (CK-2) (0.0-2.4) ng/mL Troponin I (0.000-0.034) ng/mL Total Protein 6.3 (6.3-8.2) g/dL Albumin 3.7 (3.5-5.0) g/dL Stool Occult Blood (Negative) 01/06/17 01/06/17 Range/Units 18:15 21:00 WBC (3.8-10.6) k/uL RBC (4.30-5.90) m/uL Hgb (13.0-17.5) gm/dL Hct (39.0-53.0) % MCV (80.0-100.0) fL MCH (25.0-35.0) pg MCHC (31.0-37.0) g/dL RDW (11.5-15.5) % Plt Count (150-450) k/uL Neutrophils % % Lymphocytes % % Monocytes % % Eosinophils % % Basophils % % Neutrophils # (1.3-7.7) k/uL Lymphocytes # (1.0-4.8) k/uL Monocytes # (0-1.0) k/uL Eosinophils # (0-0.7) k/uL Basophils # (0-0.2) k/uL Manual Slide Review RBC Morphology Hypochromasia Anisocytosis PT (9.0-12.0) sec INR (<1.1) APTT (22.0-30.0) sec Sodium (137-145) mmol/L Potassium (3.5-5.1) mmol/L Chloride (98-107) mmol/L Carbon Dioxide (22-30) mmol/L Anion Gap mmol/L BUN (9-20) mg/dL Creatinine (0.66-1.25) mg/dL Est GFR (MDRD) Af Amer (>60 ml/min/1.73 sqM) Est GFR (MDRD) Non-Af (>60 ml/min/1.73 sqM) Glucose (74-99) mg/dL Calcium (8.4-10.2) mg/dL Total Bilirubin (0.2-1.3) mg/dL AST (17-59) U/L ALT (21-72) U/L Alkaline Phosphatase (38-126) U/L CK-MB (CK-2) 1.6 (0.0-2.4) ng/mL Troponin I 0.034 (0.000-0.034) ng/mL Total Protein (6.3-8.2) g/dL Albumin (3.5-5.0) g/dL Stool Occult Blood Positive (Negative) Disposition Clinical Impression: CHF exacerbation, Anemia Disposition: ADMITTED IP TO THIS HOSP Condition: Stable Referrals: Félix Sykes MD [Primary Care Provider] - 1-2 days
[2017-01-06 19:56] LABS: Partial Thromboplastin Time 21.6 sec (22.0-30.0)
[2017-01-06 20:01] LABS: Creatine Kinase MB 1.6 ng/mL (0.0-2.4); Troponin I 0.034 ng/mL (0.000-0.034)
[2017-01-06 20:03] LABS: Manual Review Performed; RBC Morphology Normal
[2017-01-06 20:09] LABS: INR 1.1 (<1.1); Prothrombin Time 10.6 sec (9.0-12.0)
[2017-01-06] MEDS ORDERED: FUROSEMIDE 10 MG/ML 4 ML VIAL IV STA (21:08)
[2017-01-06] MEDS ORDERED: NALOXONE 0.4 MG/ML 1 ML VIAL IV PRN (21:11)
[2017-01-06] MEDS ORDERED: PANTOPRAZOLE 40 MG/10 ML VIAL IVP ONE (21:12)
[2017-01-06] MEDS ORDERED: NITROGLYCERIN SL TABS 0.4 MG TAB SUBLINGUAL PRN (22:39)
[2017-01-06] MEDS ORDERED: POLYETHYLENE GLYCOL 3350 17 GM POWD.PACK PO PRN (22:43)
[2017-01-06 23:07] LABS: Glucose,Whole Blood 60 mg/dL (75-99)
[2017-01-06] MEDS: INSULIN NPH 300 UNIT/3 ML VIAL SQ SCH (23:23)
[2017-01-06] MEDS: hydrALAZINE HCL 25 MG TAB PO SCH (23:24)
[2017-01-06] MEDS: DOCUSATE 100 MG CAP PO SCH (23:24)
[2017-01-06] MEDS: ZOLPIDEM 5 MG TAB PO PRN (23:27)
[2017-01-06] MEDS ORDERED: FUROSEMIDE 10 MG/ML 4 ML VIAL ONE (23:37)
[2017-01-07 00:01] LABS: Glucose,Whole Blood 96 mg/dL (75-99)
[2017-01-07 01:52] LABS: Creatine Kinase MB 1.3 ng/mL (0.0-2.4)
[2017-01-07 02:01] LABS: Troponin I 0.035 ng/mL (0.000-0.034)
[2017-01-07 06:12] LABS: Calcium 9.7 mg/dL (8.4-10.2); Potassium 4.6 mmol/L (3.5-5.1)
[2017-01-07 06:18] LABS: CH 27.8; CHCM 30.6; HCT 26.8 % (39.0-53.0); HDW 2.79; HGB 8.5 gm/dL (13.0-17.5); Hypochromasia Moderate; MCH 28.9 pg (25.0-35.0); MCHC 31.6 g/dL (31.0-37.0); MCV 91.4 fL (80.0-100.0); RBC 2.93 m/uL (4.30-5.90); RDW 15.8 % (11.5-15.5); WBC 7.6 k/uL (3.8-10.6)
[2017-01-07 06:34] LABS: Creatine Kinase MB 1.3 ng/mL (0.0-2.4)
[2017-01-07 06:39] LABS: Troponin I 0.037 ng/mL (0.000-0.034)
[2017-01-07] MEDS: INSULIN LISPRO (humaLOG) 300 UNIT/3 ML VIAL SQ SCH ×4 (06:43→20:50)
[2017-01-07 07:12] LABS: Glucose,Whole Blood 68 mg/dL (75-99)
[2017-01-07] MEDS: ASPIRIN 81 MG CHEW PO SCH ×2 (08:14→20:41)
[2017-01-07] MEDS: CLOPIDOGREL 75 MG TAB PO SCH (08:14)
[2017-01-07] MEDS: CARVEDILOL 12.5 MG TAB PO SCH (08:14)
[2017-01-07] MEDS: DOCUSATE 100 MG CAP PO SCH ×2 (08:15→20:41)
[2017-01-07] MEDS: FOLIC ACID 1 MG TAB PO SCH (08:15)
[2017-01-07] MEDS: ALLOPURINOL 100 MG TAB PO SCH (08:15)
[2017-01-07] MEDS: GLIMEPIRIDE 4 MG TAB PO SCH ×2 (08:15→20:55)
[2017-01-07] MEDS: LISINOPRIL 20 MG TAB PO SCH (08:17)
[2017-01-07] MEDS: hydrALAZINE HCL 25 MG TAB PO SCH ×2 (08:17→20:41)
[2017-01-07] MEDS: PANTOPRAZOLE 40 MG/10 ML VIAL IVP SCH ×2 (08:20→20:42)
[2017-01-07 08:24] LABS: Glucose,Whole Blood 153 mg/dL (75-99)
[2017-01-07] MEDS ORDERED: FUROSEMIDE 40 MG TAB PO SCH (09:00)
--- NOTE | 2017-01-07 09:27 | CONS ---
DATE OF CONSULTATION: CHIEF COMPLAINT: Shortness of breath and weight gain. This is a 66-year-old gentleman with history of coronary artery disease, status post CABG, status post prior angioplasty, cardiomyopathy, status post AICD with prior episodes of diastolic heart failure, comes in complaining of shortness of breath. He complains of progressively worsening shortness of breath with some leg edema. He is admitted with a diagnosis of acute exacerbation of chronic diastolic heart failure and cardiology had been consulted for the same. Past medical history is significant for coronary artery disease, status post CABG, status post prior angioplasty, status post AICD pacemaker, pacemaker that has been upgraded to ICD, umbilical hernia surgery, hemorrhoidectomy, hypertension and diabetes. Medications include Coreg 50 in the morning and 25 in the evening, insulin, Lipitor, Apresoline, Aldactone, Zestril, [place], Amaryl, Lasix, Colace, Plavix, aspirin and Zyloprim. Patient is allergic to IV DYE, KEFLEX, PENICILLIN, SULFA. Family history is negative for premature coronary artery disease. Social history is negative for current smoking, EtOH abuse, or drug abuse. REVIEW OF SYSTEMS: HEENT: Unremarkable. CARDIAC: As described above. RESPIRATORY: As described above. GI: Negative. GENITOURINARY: Negative. ALLERGY/IMMUNOLOGY: Negative. SKIN: Negative. MUSCULOSKELETAL: Significant for arthritis. PSYCHOSOCIAL: Negative. ENDOCRINE: ( ) CONSTITUTIONAL: Significant for not feeling well. The rest of the system review is not relevant. On exam he is comfortable at rest. Heart rate is 68 beats per minute, blood pressure 148/74, respiratory rate is 18. There is no jugular venous distention. Carotid upstroke is diminished. There is no bruit. Chest exam reveals good air entry bilaterally. Heart exam reveals first and second heart sounds and a systolic murmur at the left lower sternal border. Abdomen is soft. Exam of extremities reveals trace edema. Peripheral pulses are felt. Labs show that troponin is 0.03, 0.03, 0.03. BUN is elevated at 57. Creatinine is 2.7. ASSESSMENT: 1. Acute exacerbation of chronic diastolic heart failure. 2. Severe anemia, which is probably exacerbating the underlying heart failure. 3. Chronic renal insufficiency. 4. Coronary artery disease, status post coronary artery bypass grafting. 5. Status post AICD. 6. Insulin-requiring diabetes. PLAN: I am going to stop the Aldactone at this time and continue with Lasix p.o. He actually received one dose of IV Lasix following which he seemed to be feeling better. I think most of his symptoms are really related to the anemia. We need to look at his prior CBCs.
[2017-01-07] MEDS: SPIRONOLACTONE 25 MG TAB PO SCH (10:00)
[2017-01-07 11:45] LABS: Hemoglobin A1C 5.6 % (4.2-6.1)
[2017-01-07] MEDS ORDERED: DARBEPOETIN ALFA 40 MCG/0.4 ML SYRINGE SQ SCH (12:00)
[2017-01-07 12:01] LABS: Glucose,Whole Blood 216 mg/dL (75-99)
--- NOTE | 2017-01-07 12:41 | P.NPCON ---
History of Present Illness - Reason for Consult acute renal failure - History of Present Illness Reason for consultation: Acute kidney injury on chronic kidney disease History of present illness: Patient is a 66-year-old male seen in renal consultation for acute kidney injury on chronic kidney disease. Patient has chronic kidney disease stage III with baseline creatinine near 2 secondary to cardiorenal syndrome and diabetic kidney disease. He does have systolic CHF with ejection fraction of 30 %. Patient was maintained on Lasix 20 mg once daily and was increased up to 3 times daily recently. Patient states he's been gaining weight and has put on about 10 pounds over the last few days. His creatinine was 2.74 on admission and is 2.70 today. He admits to good urine output. He tries to limit his oral fluid intake to less than 50 ounces a day. He denies excessive salt intake. Denies vomiting or diarrhea. Denies use of NSAIDs. Denies any active chest pain or shortness of breath. Chest x-ray was suggestive of mild vascular congestion. He did receive IV Lasix yesterday and he states his edema is improved but still not at his baseline. Vital signs are stable. General: The patient appeared well nourished and normally developed. HEENT: Head exam is unremarkable. Neck is without jugular venous distension. LUNGS: Lungs are clear to auscultation and percussion. Breath sounds decreased. HEART: Rate and Rhythm are regular. First and second heart sounds normal. No murmurs, rubs or gallops. ABDOMEN: Abdominal exam reveals normal bowel sounds. Non-tender and non- distended. No evidence of peritonitis. EXTREMITITES: 1+ edema. Past Medical History Past Medical History: Coronary Artery Disease (CAD), Chest Pain / Angina, Heart Failure, Diabetes Mellitus, Hyperlipidemia, Hypertension, Myocardial Infarction (DC), Osteoarthritis (OA), Prostate Disorder, Renal Disease Additional Past Medical History / Comment(s): CHB (has pacemaker), ischemic cardiomyopathy, pt is to go to [facility] next week for laser lead extration or RV and placement of BiV ICD, IDDM type II, R elbow bursitis/cellulitis, gout, Last Myocardial Infarction Date:: 10/05/15 History of Any Multi-Drug Resistant Organisms: None Reported Past Surgical History: Coronary Bypass/CABG, Heart Catheterization, Heart Catheterization With Stent, Hernia Repair, Pacemaker Additional Past Surgical History / Comment(s): 10/22/15 upper extremity venogram , 2011 triple bypass at [facility], 2006 PCI with stent cx, 09/2015 PCI with stent to LAD, 10/2015 ccath treat medically, dual chamber pacemaker initial insertion 2004 and replaced in 2011, umbillical hernia repair, several nose sx d/t 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 Defibriliator in january 2016 Past Anesthesia/Blood Transfusion Reactions: No Reported Reaction Date of Last Stent Placement:: 09/2015 Type of Cardiac Device: Permanent Pacemaker Device Placement Date:: 2011 Past Psychological History: No Psychological Hx Reported Additional Psychological History / Comment(s): Pt states he resides with Shaunna. He is independent. He uses no assistive device. He drives. He has no home care use. Smoking Status: Former smoker Past Alcohol Use History: Daily Additional Past Alcohol Use History / Comment(s): smoked >40 years quit 09-17- , drinks 2 beer daily Past Drug Use History: None Reported - Past Family History Father Family Medical History: CVA/TIA Additional Family Medical History / Comment(s): age 83 had several strokes Mother Family Medical History: Cancer, Liver Disease, Osteoarthritis (OA) Additional Family Medical History / Comment(s): mom is still alive at age 91, hx breast cancer, emphysema (pt stated she never smoked) Medications and Allergies Home Medications Medication Instructions Recorded Confirmed Type Folic Acid 0.4 mg PO DAILY 09/10/15 01/06/17 History Glimepiride [Amaryl] 4 mg PO BID 09/10/15 01/06/17 History Nitroglycerin Sl Tabs [Nitrostat] 0.4 mg SUBLINGUAL Q5M PRN 09/10/15 01/06/17 History Aspirin EC [Ecotrin Low Dose] 81 mg PO BID 01/22/16 01/06/17 History Atorvastatin [Lipitor] 40 mg PO HS 07/05/16 01/06/17 History HYDROcodone/APAP 7.5-325MG [[place] 1 tab PO Q6HR PRN 07/05/16 01/06/17 History 7.5-325] Multivitamins, Thera [Multivitamin 1 tab PO HS 07/05/16 01/06/17 History (formulary)] Furosemide [Lasix] 40 mg PO DAILY 08/04/16 01/06/17 History Lisinopril [Zestril] 20 mg PO DAILY 08/04/16 01/06/17 History Spironolactone [Aldactone] 25 mg PO DAILY 08/04/16 01/06/17 History Insulin NPH Human Isophane 6 unit SQ HS 01/06/17 01/06/17 History [Novolin N] hydrALAZINE HCL [Apresoline] 25 mg PO BID 01/06/17 01/06/17 History Carvedilol [Coreg] 25 mg PO AC-SUPPER 01/07/17 01/07/17 History Carvedilol [Coreg] 50 mg PO AC-BRKFST 01/07/17 01/07/17 History Allergies Allergy/AdvReac Type Severity Reaction Status Date / Time Iodinated Contrast Media - Allergy Unknown Verified 01/06/17 23:17 Oral and [Iodinated Contrast Media - IV Dye] cephalexin monohydrate AdvReac Unknown Verified 01/06/17 19:41 [From Keflex] Penicillins AdvReac Nausea & Verified 01/06/17 19:41 Vomiting Sulfa (Sulfonamide AdvReac Nausea & Verified 01/06/17 19:41 Antibiotics) Vomiting Physical Exam Vitals: Vital Signs Temp Pulse Pulse Resp BP BP Pulse Ox 01/07/17 07:50 98.4 F 61 18 145/72 93 L 01/07/17 03:19 68 16 01/07/17 03:18 97.8 F 68 16 148/74 94 L 01/06/17 22:48 59 L 18 01/06/17 21:46 97.8 F 62 22 166/73 96 01/06/17 21:39 97.0 F L 59 L 18 139/66 96 01/06/17 20:00 98 F 60 12 157/70 95 01/06/17 18:29 16 01/06/17 17:50 98.6 F 60 20 90 L Intake and Output 01/06/17 01/07/17 01/07/17 22:59 06:59 14:59 Intake Total 360 Output Total 500 550 Balance -500 -190 Intake: Oral 360 Output: Urine 500 550 Other: # Voids 400 # Bowel Movements 1 Weight 87.72 kg 88.3 kg Results - Lab Results Most recent lab results Calcium 9.7 mg/dL (8.4-10.2) 01/07/17 05:45 01/07/17 05:45 01/07/17 05:45 Assessment and Plan Plan: Assessment: #1. Nonoliguric acute kidney injury secondary to cardiorenal syndrome. Creatinine was 2.74 on admission and is 2.70 today. #2. Volume overload. #3. Systolic CHF with ejection fraction of 30%. #4. Anemia. Rule out iron deficiency. Stool for occult blood positive. #5. Chronic kidney disease stage III secondary to cardiorenal syndrome and diabetic kidney disease with baseline creatinine near 2. #6. Hypertension with chronic kidney disease. Controlled. Plan: Increase Lasix to 40 mg IV twice daily for the next 24 hours. Maintain low salt diet. I will also put him on a 1.5 L fluid restriction. Start Aranesp. Check iron studies. Check urinalysis. Repeat electrolytes in the morning. Thank you for the consultation. I will continue to follow the patient with you during his hospital stay.
[2017-01-07] MEDS: FUROSEMIDE 10 MG/ML 4 ML VIAL IV SCH ×2 (13:06→20:40)
[2017-01-07 13:32] LABS: % Iron Saturation 14.7 % (20-50)
[2017-01-07 15:07] LABS: Appearance,Urine Clear (Clear); Bacteria,Urine Rare /hpf; Bilirubin,Urine Negative (Negative); Glucose,Urine (UA) Negative (Negative); Ketones,Urine Negative (Negative); Leukocyte Esterase,Urine Negative (Negative); Mucus,Urine Rare /hpf; Nitrite,Urine Negative (Negative); PH, Urine 5.5 (5.0-8.0); Particle Count 465; Protein,Urine 1+ (Negative); RBC,Urine 1 /hpf (0-5); Specific Gravity,Urine 1.005 (1.001-1.035); UA Billing (MACRO vs. MICRO) MICRO; Urobilinogen,Urine <2.0 mg/dL (<2.0)
[2017-01-07 16:56] LABS: Glucose,Whole Blood 152 mg/dL (75-99)
--- NOTE | 2017-01-07 19:06 | HP ---
DATE OF ADMISSION: 01/06/2017 PRESENTING COMPLAINT: Short of breath. History of presenting complaint: This is a 66-year-old patient of Dr. Sykes with rather extensive medical history, whose chronic stable medical conditions include secondary pulmonary hypertension, peripheral artery disease, complete heart block with an AICD in place. Hyperlipidemia. Hypertension and diabetes mellitus, type II and gout. Patient also has underlying coronary artery disease and has congestive heart failure from diastolic dysfunction, ejection fraction 50% percent. The patient also has underlying chronic kidney disease. Patient presents with worsening short of breath over 3 weeks, increasing edema, slight cough. Decreased appetite. Patient also gets rather constipated. Has maybe one or two bowel movements a week. Occasionally has noted blood in his stools intermittently. Denies any fever. REVIEW OF SYSTEMS: CONSTITUTIONAL: Tired. HEENT: None. RESPIRATORY: As above. CARDIOVASCULAR: No chest pain. GASTROINTESTINAL: As above. GENITOURINARY: None. MUSCULOSKELETAL: Aches in the joints. Dermatological: Some bruising. LYMPHATICS: None. PSYCHIATRY: None. NEUROLOGICAL: None. PAST MEDICAL HISTORY: Secondary pulmonary hypertension, peripheral artery disease, COPD, complete heart block, hyperlipidemia, hypertension, diabetes mellitus, type II, thrombocytopenia, CHF, from diastolic dysfunction and gout, chronic kidney disease, prostate disorder. PAST SURGICAL HISTORY: 1. Coronary artery bypass. 2. Cardiac catheterization with stent. 3. Pacemaker. 4. Triple bypass in 2011 at [facility]. 5. Stent to the circumflex and stent to the left anterior descending coronary artery in 2016. 6. Umbilical hernia repair. 7. Severe nose surgeries due to fractures. 8. Hemorrhoidectomy. SOCIAL HISTORY: Patient lives with Shaunna. Patient smoked for more than 40 years; stopped in 2016 drinks 2 beers a day. Family history of strokes. HOME MEDICATIONS: 1. Hydralazine 25 mg p.o. b.i.d. 2. Aldactone 25 mg a day. 3. Nitrostat 0.4 sublingual q.5 p.r.n. 4. Multivitamin 1 tablet p.o. q.h.s. 5. Zestril 20 mg p.o. daily. 6. ( ) 0.5% one drop to the left eye b.i.d. 7. Novolin-N 6 units subcu q.h.s. 8. [place] 7.5 1 tablets q.6 p.r.n. 9. Amaryl 4 mg p.o. b.i.d. 10. Prednisone 1% eye drops one drop to the left eye b.i.d. 11. Lasix 40 mg p.o. daily. 12. Folic acid 0.4 mg p.o. daily. 13. Colace 100 mg p.o. b.i.d. 14. Plavix 75 mg p.o. daily. 15. Coreg 25 mg with supper, 50 mg breakfast. 16. Lipitor 40 mg q.h.s. 17. Aspirin 81 mg p.o. b.i.d. 18. Allopurinol 100 mg p.o. daily. ALLERGIES TO IV CONTRAST DYE, KEFLEX, PENICILLIN, SULFA. On examination, temperature 98, pulse 60, respiration 18, blood pressure 137/65, pulse ox 91% on room air. GENERAL APPEARANCE: Average build, sitting up, tired -appearing normal. HEENT: External appearance of nose and ears normal. Oral cavity normal. NECK: JVD possibly raised. Mass not palpable. RESPIRATORY: Effort increased. LUNGS: Decreased breath sounds. Some crackles. CARDIOVASCULAR: First and second sounds normal. Some edema is present. ABDOMEN: Distended, soft, liver and spleen not palpable. LYMPHATIC: No lymph nodes palpable in the neck and axilla. PSYCHIATRY: Alert and oriented x3. Mood and affect normal. NEUROLOGICAL: Pupils equal. Cranial nerves grossly intact. Power and sensation grossly intact. INVESTIGATIONS: White count 7.6, hemoglobin 8.7, platelets 90, potassium 5.4. BUN 61, creatinine 2.74. Accu-Cheks are noted 68, 60, 96. ProBNP 2710. Chest x-ray showed venous prominence, 2-D echo from 07/08/16 showed EF of 55% to 60%, moderate concentric left ventricular hypertrophy. ASSESSMENT: 1. Acute on chronic congestive heart failure exacerbation from diastolic dysfunction, ejection fraction 55% to 60%, underlying coronary artery disease. 2. Chronic thrombocytopenia, likely idiopathic thrombocytopenic purpura. 3. Diabetes mellitus type 2, chronically on insulin. 4. Essential hypertension. 5. Hyperlipidemia. 6. Complete heart block with AICD in place. 7. Chronic obstructive pulmonary disease in an ex-smoker. 8. Peripheral artery disease. 9. Acute chronic obstructive pulmonary disease exacerbation, in an ex-smoker. 10. Peripheral artery disease. 11. Secondary pulmonary hypertension secondary to chronic obstructive pulmonary disease. 12. Chronic kidney disease, stage III, probably secondary to diabetic nephropathy. 13. Hypertension with chronic kidney disease. PLAN: Home medications are resumed. We will add MiraLax for constipation, which seems to be an issue. We will stop patient's Humulin-N at night as seems to be dropping sugars in the morning. Will also cut back on the dose of patient's Amaryl. The patient also getting diuresed. Will DC the Colace and use MiraLax. Care was discussed with the patient. Cardiology and nephrology consulted. Copy to Dr. Sykes.
[2017-01-07] MEDS ORDERED: CARVEDILOL 12.5 MG TAB PO STA ×2 (19:57→19:59)
[2017-01-07] MEDS: ATORVASTATIN 40 MG TAB PO SCH (20:41)
[2017-01-07] MEDS: KETOROLAC 0.5% LEFT EYE SCH (20:42)
[2017-01-07] MEDS: EYE LEFT EYE SCH (20:42)
[2017-01-07 20:51] LABS: Glucose,Whole Blood 117 mg/dL (75-99)
[2017-01-07] MEDS: PREDNISOLONE LEFT EYE SCH (20:54)
[2017-01-07] MEDS: GENTAMICIN LEFT EYE SCH (20:54)
[2017-01-07] MEDS: INSULIN NPH 300 UNIT/3 ML VIAL SQ SCH (20:55)
[2017-01-07] MEDS ORDERED: KETOROLAC 0.5% OPHTH DROPS 3 ML BTL LEFT EYE SCH (21:00)
[2017-01-07] MEDS ORDERED: GENTAMICIN/PREDNISOL AC OPHTH OINT 3.5GM LEFT EYE SCH (21:00)
[2017-01-08] MEDS: ZOLPIDEM 5 MG TAB PO PRN ×2 (01:02→23:48)
[2017-01-08 05:52] LABS: Glucose,Whole Blood 67 mg/dL (75-99)
[2017-01-08 06:11] LABS: Glucose,Whole Blood 86 mg/dL (75-99)
[2017-01-08] MEDS: INSULIN LISPRO (humaLOG) 300 UNIT/3 ML VIAL SQ SCH ×4 (06:23→20:58)
[2017-01-08 06:31] LABS: Basophils % (A) 0 %; CH 27.9; CHCM 30.1; Eosinophils # (A) 0.2 k/uL (0-0.7); Eosinophils % (A) 3 %; HCT 27.1 % (39.0-53.0); HDW 2.63; HGB 8.2 gm/dL (13.0-17.5); Hypochromasia Marked; Luc # (Auto) 0.06; Luc % (Auto) 1; Lymphocytes # (A) 0.3 k/uL (1.0-4.8); Lymphocytes % (A) 5 %; MCH 28.1 pg (25.0-35.0); MCHC 30.2 g/dL (31.0-37.0); Mean Platelet Volume 9.7; Monocytes # (A) 0.3 k/uL (0-1.0); Monocytes % (A) 5 %; Neutrophils # (A) 5.5 k/uL (1.3-7.7); Neutrophils % (A) 87 %; RBC 2.92 m/uL (4.30-5.90); RDW 15.9 % (11.5-15.5); WBC 6.3 k/uL (3.8-10.6); WBC (Perox) 6.54
[2017-01-08] MEDS: CARVEDILOL 12.5 MG TAB PO SCH ×2 (06:32→17:36)
[2017-01-08 06:38] LABS: Calcium 9.9 mg/dL (8.4-10.2); Potassium 4.3 mmol/L (3.5-5.1)
[2017-01-08] MEDS: FUROSEMIDE 10 MG/ML 4 ML VIAL IV SCH (08:28)
[2017-01-08] MEDS: CLOPIDOGREL 75 MG TAB PO SCH (08:28)
[2017-01-08] MEDS: hydrALAZINE HCL 25 MG TAB PO SCH ×2 (08:29→20:45)
[2017-01-08] MEDS: DOCUSATE 100 MG CAP PO SCH ×2 (08:29→20:45)
[2017-01-08] MEDS: FOLIC ACID 1 MG TAB PO SCH (08:29)
[2017-01-08] MEDS: ALLOPURINOL 100 MG TAB PO SCH (08:29)
[2017-01-08] MEDS: GLIMEPIRIDE 4 MG TAB PO SCH (08:29)
[2017-01-08] MEDS: ASPIRIN 81 MG CHEW PO SCH (08:29)
[2017-01-08] MEDS: LISINOPRIL 20 MG TAB PO SCH (08:30)
[2017-01-08] MEDS: KETOROLAC 0.5% LEFT EYE SCH ×2 (08:30→20:44)
[2017-01-08] MEDS: GENTAMICIN LEFT EYE SCH ×2 (08:30→20:44)
[2017-01-08] MEDS: PANTOPRAZOLE 40 MG/10 ML VIAL IVP SCH ×2 (08:30→20:45)
[2017-01-08] MEDS: EYE LEFT EYE SCH ×2 (08:30→20:44)
[2017-01-08] MEDS: PREDNISOLONE LEFT EYE SCH ×2 (08:30→20:44)
[2017-01-08] MEDS: SPIRONOLACTONE 25 MG TAB PO SCH (08:30)
--- NOTE | 2017-01-08 11:07 | P.CONS ---
History of Present Illness - Reason for Consult Consult date: 01/08/17 GI bleed anemia Requesting physician: Arturo Jerez - History of Present Illness 66-year-old male with a history of diabetes mellitus, obesity, I retention, hyperlipidemia, ID, CAD with PCI stent more than a year ago, CABG, cardiomyopathy/AICD, CHF, CKD, and hemorrhoids. Patient presents with shortness of breath secondary to CHF exacerbation. Consultation requested for anemia and GI bleed. Patient has had intermittent painless bright red blood per rectum mostly on tissue over the last 4-6 months. Last colonoscopy to his memory was more than 5 years ago and normal. Denies weight loss fever chills gross hematemesis or melena. Few isolated episodes of hematochezia but not on a daily or weekly basis. Patient had a bowel movement yesterday that was blood tinged but another one this morning that was nonbloody. He has had multiple hemorrhoidal banding procedures over the years. No history of peptic ulcer disease NSAID or heavy aspirin usage. He is presently receiving baby aspirin twice daily and Plavix. Admission hemoglobin 8.7. MCV 90. Platelet 90,000. INR 1.1. BUN 61. Creatinine 2.7. Upon review of previous medical records average hemoglobin between 11-12 in 2016. Platelet count averaging between 91-139. Hemoccult stool positive. Iron 47. TIBC 320. Iron saturation 14.7%. Ferritin 36. Review of Systems Constitutional: Denies fever, chills, sweats, weight gain, or loss. HEENT: Negative for migraines, blurred vision or loss, earaches, drainage, tinnitus, oral mucosal lesions, dysphagia, or odynophagia. Cardiac: CHF. CAD. CABG. Hyperlipidemia. Hypertension. ID. AICD. Respiratory: Negative for shortness of breath, hemoptysis, cough, or sputum production. Gastrointestinal: See HPI for pertinent findings. Genitourinary: BPH. Negative for hematuria, urgency, frequency, polyuria, dysuria, or penile discharge. Musculoskeletal: Osteoarthritis. Negative for muscle aches, swelling, arthritis , and arthralgias. Neurologic: Negative for stroke or TIA. Endocrine: Diabetes mellitus. Negative for thyroid problems. Nephrology: Chronic any disease. Skin: Negative for rash or itching. Psychiatric: Negative history for depression and anxiety All systems: negative (See HPI) Past Medical History Past Medical History: Coronary Artery Disease (CAD), Chest Pain / Angina, Heart Failure, Diabetes Mellitus, Hyperlipidemia, Hypertension, Myocardial Infarction (ID), Osteoarthritis (OA), Prostate Disorder, Renal Disease Additional Past Medical History / Comment(s): CHB (has pacemaker), ischemic cardiomyopathy, pt is to go to [facility] next week for laser lead extration or RV and placement of BiV ICD, IDDM type II, R elbow bursitis/cellulitis, gout, Last Myocardial Infarction Date:: 10/05/15 History of Any Multi-Drug Resistant Organisms: None Reported Past Surgical History: Coronary Bypass/CABG, Heart Catheterization, Heart Catheterization With Stent, Hernia Repair, Pacemaker Additional Past Surgical History / Comment(s): 10/22/15 upper extremity venogram , 2011 triple bypass at [facility], 2006 PCI with stent cx, 09/2015 PCI with stent to LAD, 10/2015 ccath treat medically, dual chamber pacemaker initial insertion 2004 and replaced in 2011, umbillical hernia repair, several nose sx d/t 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 Defibriliator in january 2016 Past Anesthesia/Blood Transfusion Reactions: No Reported Reaction Date of Last Stent Placement:: 09/2015 Type of Cardiac Device: Permanent Pacemaker Device Placement Date:: 2011 Past Psychological History: No Psychological Hx Reported Additional Psychological History / Comment(s): Pt states he resides with Shaunna. He is independent. He uses no assistive device. He drives. He has no home care use. Smoking Status: Former smoker Past Alcohol Use History: Daily Additional Past Alcohol Use History / Comment(s): smoked >40 years quit 09-17- , drinks 2 beer daily Past Drug Use History: None Reported - Past Family History Father Family Medical History: CVA/TIA Additional Family Medical History / Comment(s): age 83 had several strokes Mother Family Medical History: Cancer, Liver Disease, Osteoarthritis (OA) Additional Family Medical History / Comment(s): mom is still alive at age 91, hx breast cancer, emphysema (pt stated she never smoked) Medications and Allergies Home Medications Medication Instructions Recorded Confirmed Type Folic Acid 0.4 mg PO DAILY 09/10/15 01/06/17 History Glimepiride [Amaryl] 4 mg PO BID 09/10/15 01/06/17 History Nitroglycerin Sl Tabs [Nitrostat] 0.4 mg SUBLINGUAL Q5M PRN 09/10/15 01/06/17 History Aspirin EC [Ecotrin Low Dose] 81 mg PO BID 01/22/16 01/06/17 History Atorvastatin [Lipitor] 40 mg PO HS 07/05/16 01/06/17 History HYDROcodone/APAP 7.5-325MG [[place] 1 tab PO Q6HR PRN 07/05/16 01/06/17 History 7.5-325] Multivitamins, Thera [Multivitamin 1 tab PO HS 07/05/16 01/06/17 History (formulary)] Furosemide [Lasix] 40 mg PO DAILY 08/04/16 01/06/17 History Lisinopril [Zestril] 20 mg PO DAILY 08/04/16 01/06/17 History Spironolactone [Aldactone] 25 mg PO DAILY 08/04/16 01/06/17 History Insulin NPH Human Isophane 6 unit SQ HS 01/06/17 01/06/17 History [Novolin N] hydrALAZINE HCL [Apresoline] 25 mg PO BID 01/06/17 01/06/17 History Carvedilol [Coreg] 25 mg PO AC-SUPPER 01/07/17 01/07/17 History Carvedilol [Coreg] 50 mg PO AC-BRKFST 01/07/17 01/07/17 History Gentamicin Sulf/Prednisolone 1 drop LEFT EYE BID 01/07/17 01/07/17 History [Pred-G 1% Eye Drops] Ketorolac 0.5% Ophth Soln [Acular] 1 drops LEFT EYE BID 01/07/17 01/07/17 History Allergies Allergy/AdvReac Type Severity Reaction Status Date / Time Iodinated Contrast Media - Allergy Unknown Verified 01/06/17 23:17 Oral and [Iodinated Contrast Media - IV Dye] cephalexin monohydrate AdvReac Unknown Verified 01/06/17 19:41 [From Keflex] Penicillins AdvReac Nausea & Verified 01/06/17 19:41 Vomiting Sulfa (Sulfonamide AdvReac Nausea & Verified 01/06/17 19:41 Antibiotics) Vomiting Physical Exam Vitals: Vital Signs Temp Pulse Resp BP Pulse Ox 01/08/17 03:54 97.2 F L 60 18 143/63 95 01/08/17 00:00 97.1 F L 62 18 148/64 93 L 01/07/17 20:00 97.1 F L 60 18 145/61 97 01/07/17 16:25 97.6 F 62 18 154/75 92 L 01/07/17 12:15 98.0 F 60 18 137/65 91 L Intake and Output 01/07/17 01/08/17 01/08/17 22:59 06:59 14:59 Intake Total 200 120 Output Total 325 600 350 Balance -125 -600 -230 Intake: Oral 200 120 Output: Urine 325 600 350 Other: Voiding Method Urinal Urinal Weight 86.3 kg General appearance: The patient is alert, oriented, in no acute distress. HET: Head is normocephalic and atraumatic. Pupils are equal and reactive. Oropharynx is clear without lesions. Neck: Supple without lymphadenopathy. Trachea midline. Heart: S1 S2. Regular rate and rhythm. Lungs: No crackles or wheezes are heard. Abdomen: Soft, nontender, nondistended with bowel sounds. No peritoneal signs. No palpable organomegaly or masses. Extremities: Normal skin color and turgor. No cyanosis, rash, ulceration, clubbing, or edema. Radial and pedal pulses are 2/4 bilaterally. Neurological: No focal deficits. Strength and sensation are grossly intact. Rectal: External/internal palpable hemorrhoids nonthrombosed not bleeding at time of exam. No palpable masses. Yellow colored stool on finger. However remnants of perirectal blood. Results CBC & Chem 7: 01/08/17 05:51 01/08/17 05:51 Labs: Abnormal Lab Results - Last 24 Hours (Table) 01/07/17 01/07/17 01/07/17 Range/Units 05:45 11:53 14:59 RBC (4.30-5.90) m/uL Hgb (13.0-17.5) gm/dL Hct (39.0-53.0) % MCHC (31.0-37.0) g/dL RDW (11.5-15.5) % Plt Count (150-450) k/uL Lymphocytes # (1.0-4.8) k/uL Chloride (98-107) mmol/L BUN (9-20) mg/dL Creatinine (0.66-1.25) mg/dL Glucose (74-99) mg/dL POC Glucose (mg/dL) 216 H (75-99) mg/dL Iron 47 L (49-181) ug/dL % Saturation 14.7 L (20-50) % Urine Protein 1+ H (Negative) Urine Bacteria Rare H (None) /hpf Hyaline Casts 4 H (0-2) /lpf Urine Mucus Rare H (None) /hpf 01/07/17 01/07/17 01/08/17 Range/Units 16:52 20:49 05:49 RBC (4.30-5.90) m/uL Hgb (13.0-17.5) gm/dL Hct (39.0-53.0) % MCHC (31.0-37.0) g/dL RDW (11.5-15.5) % Plt Count (150-450) k/uL Lymphocytes # (1.0-4.8) k/uL Chloride (98-107) mmol/L BUN (9-20) mg/dL Creatinine (0.66-1.25) mg/dL Glucose (74-99) mg/dL POC Glucose (mg/dL) 152 H 117 H 67 L (75-99) mg/dL Iron (49-181) ug/dL % Saturation (20-50) % Urine Protein (Negative) Urine Bacteria (None) /hpf Hyaline Casts (0-2) /lpf Urine Mucus (None) /hpf 01/08/17 01/08/17 Range/Units 05:51 05:51 RBC 2.92 L (4.30-5.90) m/uL Hgb 8.2 L (13.0-17.5) gm/dL Hct 27.1 L (39.0-53.0) % MCHC 30.2 L (31.0-37.0) g/dL RDW 15.9 H (11.5-15.5) % Plt Count 96 L (150-450) k/uL Lymphocytes # 0.3 L (1.0-4.8) k/uL Chloride 110 H (98-107) mmol/L BUN 56 H (9-20) mg/dL Creatinine 2.71 H (0.66-1.25) mg/dL Glucose 64 L (74-99) mg/dL POC Glucose (mg/dL) (75-99) mg/dL Iron (49-181) ug/dL % Saturation (20-50) % Urine Protein (Negative) Urine Bacteria (None) /hpf Hyaline Casts (0-2) /lpf Urine Mucus (None) /hpf Assessment and Plan (1) Anemia Narrative/Plan: 66-year-old male admitted with exacerbation of CHF with symptomatic acute blood loss anemia with positive Hemoccult. Etiology possibly perianal exacerbated by dual antiplatelet medications however colonic source cannot be entirely excluded. Status: Acute (2) Acute blood loss anemia Status: Acute (3) Hemorrhoids Status: Acute Plan: 1. We'll proceed with colonoscopy evaluation on Wednesday with Dr. Field secondary to patient receiving aspirin and Plavix today. Case was discussed with nurse practitioner Tiffanie Fitch in regards to holding Plavix. Last PCI stent more than a year ago. We'll hold Plavix starting tomorrow and decrease twice daily baby aspirin to daily dosing; this was discussed with Dr. Jerez service CAMPAIGN ANALYST Perri Johnson. 2. Continue with monitoring CBC closely. 3. Iron indices reviewed. The circuit walker has discussed the risks, benefits and alternative therapies for the above-mentioned procedure and for both sedation/analgesia as well as necessary blood product administration, if indicated, as they pertain to this patient. The patient has indicated understanding and acceptance of the risks and procedures discussed. Thank you for this kind referral and the opportunity to participate in the care of your patient. This consultation was discussed with Dr. Mcdermott. The impression and plan of care have been directed as dictated.
[2017-01-08 11:57] LABS: Glucose,Whole Blood 184 mg/dL (75-99)
--- NOTE | 2017-01-08 12:33 | P.PN ---
Subjective Principal diagnosis: Anemia, congestive heart failure This is a 66-year-old gentleman with history of coronary artery disease and prior bypass surgery, prior angioplasty, ischemic cardio myopathy with prior AICD implantation, hypertension, hyperlipidemia, chronic renal failure, diabetes, who presented to the hospital with symptoms of progressively worsening shortness of breath as well as bilateral leg edema. He is currently receiving treatment for diastolic congestive cardiac failure. Patient was also found to be significantly anemic, was seen by GI service in consultation. He is tentatively scheduled to undergo colonoscopy on Wednesday. Aspirin and Plavix will be placed on hold for this procedure. Overall the patient states she's feeling mildly better today. Blood pressure 142/60 with a heart rate in the 60s. 95% on room air. Hemoglobin 8.2, platelet count 96, potassium 4.3, BUN 56 , creatinine 2.7. Weight is down 2 kg today. Patient continues to be on IV Lasix 80 mg IV twice a day. Objective - Vital Signs Vital signs: Vital Signs Temp 97.2 F L 01/08/17 03:54 Pulse 60 01/08/17 03:54 Resp 18 01/08/17 03:54 BP 143/63 01/08/17 03:54 Pulse Ox 95 01/08/17 03:54 Intake & Output 01/07/17 01/08/17 01/08/17 18:59 06:59 18:59 Intake Total 360 200 120 Output Total 1200 925 350 Balance -840 -725 -230 Weight 86.3 kg Intake: Oral 360 200 120 Output: Urine 1200 925 350 Other: Voiding Method Urinal # Voids 1 # Bowel Movements 1 - Exam PHYSICAL EXAMINATION: HEENT: Head is atraumatic, normocephalic. Pupils equal, round. Neck is supple. There is no elevated jugular venous pressure. HEART EXAMINATION: Heart S1 and S2 systolic murmur is heard. CHEST EXAMINATION: Lungs reveal diminished air entry to bilateral bases. ABDOMEN: Soft, nontender. Bowel sounds are heard. No organomegaly noted. EXTREMITIES: 2+ peripheral pulses with trace evidence of peripheral edema and no calf tenderness noted. NEUROLOGIC patient is awake, alert and oriented -3. . - Labs CBC & Chem 7: 01/08/17 05:51 01/08/17 05:51 Labs: Abnormal Lab Results - Last 24 Hours (Table) 01/07/17 01/07/17 01/07/17 Range/Units 05:45 14:59 16:52 RBC (4.30-5.90) m/uL Hgb (13.0-17.5) gm/dL Hct (39.0-53.0) % MCHC (31.0-37.0) g/dL RDW (11.5-15.5) % Plt Count (150-450) k/uL Lymphocytes # (1.0-4.8) k/uL Chloride (98-107) mmol/L BUN (9-20) mg/dL Creatinine (0.66-1.25) mg/dL Glucose (74-99) mg/dL POC Glucose (mg/dL) 152 H (75-99) mg/dL Iron 47 L (49-181) ug/dL % Saturation 14.7 L (20-50) % Urine Protein 1+ H (Negative) Urine Bacteria Rare H (None) /hpf Hyaline Casts 4 H (0-2) /lpf Urine Mucus Rare H (None) /hpf 01/07/17 01/08/17 01/08/17 Range/Units 20:49 05:49 05:51 RBC (4.30-5.90) m/uL Hgb (13.0-17.5) gm/dL Hct (39.0-53.0) % MCHC (31.0-37.0) g/dL RDW (11.5-15.5) % Plt Count (150-450) k/uL Lymphocytes # (1.0-4.8) k/uL Chloride 110 H (98-107) mmol/L BUN 56 H (9-20) mg/dL Creatinine 2.71 H (0.66-1.25) mg/dL Glucose 64 L (74-99) mg/dL POC Glucose (mg/dL) 117 H 67 L (75-99) mg/dL Iron (49-181) ug/dL % Saturation (20-50) % Urine Protein (Negative) Urine Bacteria (None) /hpf Hyaline Casts (0-2) /lpf Urine Mucus (None) /hpf 01/08/17 01/08/17 Range/Units 05:51 11:53 RBC 2.92 L (4.30-5.90) m/uL Hgb 8.2 L (13.0-17.5) gm/dL Hct 27.1 L (39.0-53.0) % MCHC 30.2 L (31.0-37.0) g/dL RDW 15.9 H (11.5-15.5) % Plt Count 96 L (150-450) k/uL Lymphocytes # 0.3 L (1.0-4.8) k/uL Chloride (98-107) mmol/L BUN (9-20) mg/dL Creatinine (0.66-1.25) mg/dL Glucose (74-99) mg/dL POC Glucose (mg/dL) 184 H (75-99) mg/dL Iron (49-181) ug/dL % Saturation (20-50) % Urine Protein (Negative) Urine Bacteria (None) /hpf Hyaline Casts (0-2) /lpf Urine Mucus (None) /hpf Assessment and Plan (1) Diastolic CHF, acute on chronic Status: Acute (2) Severe anemia Status: Acute (3) Chronic renal disease Status: Acute (4) CAD (coronary artery disease) Status: Acute (5) Hx of CABG Status: Acute (6) Ischemic cardiomyopathy Status: Acute (7) AICD (automatic cardioverter/defibrillator) present Status: Acute (8) Diabetes Status: Acute (9) HTN (hypertension) Status: Acute (10) Hyperlipemia Status: Acute Plan: From cardiology's perspective, we'll recommend to continue current dose of IV Lasix. Check lytes BUN and creatinine in the morning. Patient will be scheduled to undergo colonoscopy on Wednesday with Dr. Cr Field. DNP note has been reviewed, I agree with a documented findings and plan of care. Patient was seen and examined.
--- NOTE | 2017-01-08 13:12 | PN ---
Patient is seen for followup for chronic kidney disease and acute kidney injury. He was admitted to the hospital with volume overload. He is currently maintained on Lasix 80 mg IV twice a day, seems to be doing much better. Serum creatinine has been at about 2.7 mg/dL. Upon review of labs, previous creatinine was 2.1 in August 2016. Blood pressure is not significantly low and patient is maintained on MIC inhibitors, which we can continue. On examination today, blood pressure is 149/66, heart rate of 60 per minute. He is afebrile. HEART: S1 and S2. LUNGS: Bilateral breath sounds are heard. No crackles or wheezing is heard. ABDOMEN: Soft, nontender. Lower extremities show edema 1+ bilaterally. FIELD TRAINING AGENT: Grossly intact. Patient is moving all 4 extremities. Labs show sodium 145, potassium 4.3, BUN 56, serum creatinine 2.7. Hemoglobin 8.2 g/dL. ASSESSMENT: 1. Chronic kidney disease secondary to nephrosclerosis, [employer] stage 4, with baseline creatinine around 2.0 mg/dL. Patient is maintained on IV Lasix 80 mg b.i.d. His volume status has improved. He is also maintained on lisinopril, which we can continue for now. Serum creatinine is slightly higher than baseline. Patient has good urine output. There are no other nephrotoxic medications noted at this time. 2. Chronic kidney disease stage 4 secondary to nephrosclerosis with baseline creatinine about 2.0. 3. Anemia of chronic disease, maintained on Aranesp. 4. Volume overload, currently improved. An echocardiogram done in July 2016 showed ejection fraction 55% to 60% and moderate concentric left ventricular hypertrophy was noted. left atrium was severely dilated with moderately dilated right ventricle. PLAN: Patient is advised regarding monitoring his weight and volume status at home along with need for adjustment of diuretics. Continue with fluid restriction. Continue with IV Lasix. We can decrease the dose tomorrow and possible discharge in the next 24 to 48 hours with plan to follow up as outpatient in 1 week's time. Patient will need close followup to monitor his volume status initially post discharge.
--- NOTE | 2017-01-08 13:27 | XR ---
EXAMINATION TYPE: XR chest 2V DATE OF EXAM: 01/08/2017 HISTORY: chf. REFERENCE: Previous study dated 01/06/2017. FINDINGS: There has been a midline sternotomy. There is a multilead pacing device in place on the lef t. The lungs are overinflated. The heart is mildly enlarged. There are increased interstitial markings p resent bilaterally. There is mild vascular congestion. IMPRESSION: 1. COPD. 2. MILD CHANGES OF HEART FAILURE, ESSENTIALLY UNCHANGED FROM PREVIOUS.
--- NOTE | 2017-01-08 14:25 | P.GSCN ---
<Uma Dubon Carlos - Last Filed: 01/08/17 14:13> History of Present Illness Consult date: 01/08/17 Reason for Consult: Rectal bleeding Requesting physician: Arturo Jerez History of present illness: 66-year-old male being seen at the request of the attending for surgical eval in a patient who presented with an episode of intermittent painless bright red blood per rectum. Patient stated the symptoms have been ongoing for the past several months. Patient states to his knowledge his last colonoscopy could be greater than 20 years. Patient states there's been no change in bowel habits. Patient states he's told he has hemorrhoids. has had multiple hemorrhoid banding done over the last several years. Patient gives no history to suggest peptic ulcer disease. Patient denies any reflux. Patient does have a history of coronary artery disease and is on Plavix and aspirin which are currently on hold. Hemoglobin on admission was 8.2. Patient stated that he did have a bowel movement the day before it was blood-tinged but had a bowel movement this morning in which there was no blood noted. Patient denies any unintentional weight loss. Denies any abdominal pain questioning. Did note that GI service indicates they plan on doing a colonoscopy on Wednesday per Dr. Hutchinson. The plan is to hold the Plavix and decrease the aspirin to daily It's noted the patient is being followed by gastroenterology, and cardiology and nephrology service. Review of Systems Essentially unremarkable except as mentioned in the present illness Past Medical History Past Medical History: Coronary Artery Disease (CAD), Chest Pain / Angina, Heart Failure, Diabetes Mellitus, Hyperlipidemia, Hypertension, Myocardial Infarction (OH), Osteoarthritis (OA), Prostate Disorder, Renal Disease Additional Past Medical History / Comment(s): CHB (has pacemaker), ischemic cardiomyopathy, pt is to go to [facility] next week for laser lead extration or RV and placement of BiV ICD, IDDM type II, R elbow bursitis/cellulitis, gout, Last Myocardial Infarction Date:: 10/05/15 History of Any Multi-Drug Resistant Organisms: None Reported Past Surgical History: Coronary Bypass/CABG, Heart Catheterization, Heart Catheterization With Stent, Hernia Repair, Pacemaker Additional Past Surgical History / Comment(s): 10/22/15 upper extremity venogram , 2011 triple bypass at [facility], 2006 PCI with stent cx, 09/2015 PCI with stent to LAD, 10/2015 [facility] treat medically, dual chamber pacemaker initial insertion 2004 and replaced in 2011, umbillical hernia repair, several nose sx d/t 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 Defibriliator in january 2016 Past Anesthesia/Blood Transfusion Reactions: No Reported Reaction Date of Last Stent Placement:: 09/2015 Type of Cardiac Device: Permanent Pacemaker Device Placement Date:: 2011 Past Psychological History: No Psychological Hx Reported Additional Psychological History / Comment(s): Pt states he resides with Shaunna. He is independent. He uses no assistive device. He drives. He has no home care use. Smoking Status: Former smoker Past Alcohol Use History: Daily Additional Past Alcohol Use History / Comment(s): smoked >40 years quit 09-17-11 , drinks 2 beer daily Past Drug Use History: None Reported - Past Family History Father Family Medical History: CVA/TIA Additional Family Medical History / Comment(s): age 83 had several strokes Mother Family Medical History: Cancer, Liver Disease, Osteoarthritis (OA) Additional Family Medical History / Comment(s): mom is still alive at age 91, hx breast cancer, emphysema (pt stated she never smoked) Medications and Allergies Home Medications Medication Instructions Recorded Confirmed Type Folic Acid 0.4 mg PO DAILY 09/10/15 01/06/17 History Glimepiride [Amaryl] 4 mg PO BID 09/10/15 01/06/17 History Nitroglycerin Sl Tabs [Nitrostat] 0.4 mg SUBLINGUAL Q5M PRN 09/10/15 01/06/17 History Aspirin EC [Ecotrin Low Dose] 81 mg PO BID 01/22/16 01/06/17 History Atorvastatin [Lipitor] 40 mg PO HS 07/05/16 01/06/17 History HYDROcodone/APAP 7.5-325MG [[place] 1 tab PO Q6HR PRN 07/05/16 01/06/17 History 7.5-325] Multivitamins, Thera [Multivitamin 1 tab PO HS 07/05/16 01/06/17 History (formulary)] Furosemide [Lasix] 40 mg PO DAILY 08/04/16 01/06/17 History Lisinopril [Zestril] 20 mg PO DAILY 08/04/16 01/06/17 History Spironolactone [Aldactone] 25 mg PO DAILY 08/04/16 01/06/17 History Insulin NPH Human Isophane 6 unit SQ HS 01/06/17 01/06/17 History [Novolin N] hydrALAZINE HCL [Apresoline] 25 mg PO BID 01/06/17 01/06/17 History Carvedilol [Coreg] 25 mg PO AC-SUPPER 01/07/17 01/07/17 History Carvedilol [Coreg] 50 mg PO AC-BRKFST 01/07/17 01/07/17 History Gentamicin Sulf/Prednisolone 1 drop LEFT EYE BID 01/07/17 01/07/17 History [Pred-G 1% Eye Drops] Ketorolac 0.5% Ophth Soln [Acular] 1 drops LEFT EYE BID 01/07/17 01/07/17 History Allergies Allergy/AdvReac Type Severity Reaction Status Date / Time Iodinated Contrast Media - Allergy Unknown Verified 01/06/17 23:17 Oral and [Iodinated Contrast Media - IV Dye] cephalexin monohydrate AdvReac Unknown Verified 01/06/17 19:41 [From Keflex] Penicillins AdvReac Nausea & Verified 01/06/17 19:41 Vomiting Sulfa (Sulfonamide AdvReac Nausea & Verified 01/06/17 19:41 Antibiotics) Vomiting Surgical - Exam Vital Signs Temp Pulse Resp Pulse Ox 98.6 F 60 20 90 L 01/06/17 17:50 01/06/17 17:50 01/06/17 17:50 01/06/17 17:50 GENERAL APPEARANCE: 66-year-old male sitting up on the edge of the bed patient is alert, oriented, in no acute distress. VITAL SIGNS: Reviewed HEENT: Head is normocephalic and atraumatic. Pupils are equal and reactive. The nares are patent. Oropharynx is clear without lesions. NECK: Supple without lymphadenopathy. Traches midline. HEART: S1, S2. Regular rate and rhythm. Murmur noted denying chest pain LUNGS: Bilateral dry crackles noted at the bases no wheezes are heard. On room air no shortness of breath noted ABDOMEN: Soft, nontender, nondistended with good bowel sounds. No peritoneal signs. No palpable organomegaly or masses. Denies any nausea vomiting states at one bowel movement this morning there was no blood noted in the toilet bowl no blood noted in the stool EXTREMITIES: Normal skin color and turgor. No cyanosis, rash, ulceration, clubbing or edema. Radial pedal pulses are 2/4 bilaterally. NEUROLOGICAL: No focal deficits. Strength and sensation are grossly intact. Results - Labs 01/08/17 05:51 01/08/17 05:51 Abnormal Lab Results - Last 24 Hours (Table) 01/07/17 01/07/17 01/07/17 Range/Units 14:59 16:52 20:49 RBC (4.30-5.90) m/uL Hgb (13.0-17.5) gm/dL Hct (39.0-53.0) % MCHC (31.0-37.0) g/dL RDW (11.5-15.5) % Plt Count (150-450) k/uL Lymphocytes # (1.0-4.8) k/uL Chloride (98-107) mmol/L BUN (9-20) mg/dL Creatinine (0.66-1.25) mg/dL Glucose (74-99) mg/dL POC Glucose (mg/dL) 152 H 117 H (75-99) mg/dL Urine Protein 1+ H (Negative) Urine Bacteria Rare H (None) /hpf Hyaline Casts 4 H (0-2) /lpf Urine Mucus Rare H (None) /hpf 01/08/17 01/08/17 01/08/17 Range/Units 05:49 05:51 05:51 RBC 2.92 L (4.30-5.90) m/uL Hgb 8.2 L (13.0-17.5) gm/dL Hct 27.1 L (39.0-53.0) % MCHC 30.2 L (31.0-37.0) g/dL RDW 15.9 H (11.5-15.5) % Plt Count 96 L (150-450) k/uL Lymphocytes # 0.3 L (1.0-4.8) k/uL Chloride 110 H (98-107) mmol/L BUN 56 H (9-20) mg/dL Creatinine 2.71 H (0.66-1.25) mg/dL Glucose 64 L (74-99) mg/dL POC Glucose (mg/dL) 67 L (75-99) mg/dL Urine Protein (Negative) Urine Bacteria (None) /hpf Hyaline Casts (0-2) /lpf Urine Mucus (None) /hpf 01/08/17 Range/Units 11:53 RBC (4.30-5.90) m/uL Hgb (13.0-17.5) gm/dL Hct (39.0-53.0) % MCHC (31.0-37.0) g/dL RDW (11.5-15.5) % Plt Count (150-450) k/uL Lymphocytes # (1.0-4.8) k/uL Chloride (98-107) mmol/L BUN (9-20) mg/dL Creatinine (0.66-1.25) mg/dL Glucose (74-99) mg/dL POC Glucose (mg/dL) 184 H (75-99) mg/dL Urine Protein (Negative) Urine Bacteria (None) /hpf Hyaline Casts (0-2) /lpf Urine Mucus (None) /hpf Diabetes panel 01/08/17 Range/Units 05:51 Sodium 145 (137-145) mmol/L Potassium 4.3 (3.5-5.1) mmol/L Chloride 110 H (98-107) mmol/L Carbon Dioxide 25 (22-30) mmol/L BUN 56 H (9-20) mg/dL Creatinine 2.71 H (0.66-1.25) mg/dL Glucose 64 L (74-99) mg/dL Calcium 9.9 (8.4-10.2) mg/dL Calcium panel 01/08/17 Range/Units 05:51 Calcium 9.9 (8.4-10.2) mg/dL Pituitary panel 01/08/17 Range/Units 05:51 Sodium 145 (137-145) mmol/L Potassium 4.3 (3.5-5.1) mmol/L Chloride 110 H (98-107) mmol/L Carbon Dioxide 25 (22-30) mmol/L BUN 56 H (9-20) mg/dL Creatinine 2.71 H (0.66-1.25) mg/dL Glucose 64 L (74-99) mg/dL Calcium 9.9 (8.4-10.2) mg/dL Adrenal panel 01/08/17 Range/Units 05:51 Sodium 145 (137-145) mmol/L Potassium 4.3 (3.5-5.1) mmol/L Chloride 110 H (98-107) mmol/L Carbon Dioxide 25 (22-30) mmol/L BUN 56 H (9-20) mg/dL Creatinine 2.71 H (0.66-1.25) mg/dL Glucose 64 L (74-99) mg/dL Calcium 9.9 (8.4-10.2) mg/dL Assessment and Plan Plan: Impression Present on admission acute blood loss anemia suspect due to a GI bleed possible perianal internal and external hemorrhoids History of multiple hemorrhoid banding in the past Known coronary artery disease on aspirin Plavix currently on hold Acute on chronic systolic congestive heart failure EF 30% volume overload Chronic renal disease stage III Known coronary artery disease with prior coronary artery bypass grafting Ischemic cardiomyopathy with an AICD Hyperlipidemia Hypertension Plan await the findings from the colonoscopy which is scheduled this Wednesday further surgical recommendations pending findings Continue recommendations by nephrology service defer to Defer to recommendations by cardiology service No evidence of an acute surgical abdomen Monitor hemoglobin attempt keep greater than 8 Further surgical recommendations pending Thank you for this consultation will follow patient addressing surgical issues that as they arise The above dictated assessment and findings were discussed with dr lemons Impression and the plan of care have been dictated as directed. Uma Dubon nurse practitioner acting as a scribe for dr lemons <Henok Lemons W - Last Filed: 01/08/17 17:01> Surgical - Exam Vital Signs Temp Pulse Resp Pulse Ox 98.6 F 60 20 90 L 01/06/17 17:50 01/06/17 17:50 01/06/17 17:50 01/06/17 17:50 Results - Labs 01/08/17 05:51 01/08/17 05:51 Abnormal Lab Results - Last 24 Hours (Table) 01/07/17 01/08/17 01/08/17 Range/Units 20:49 05:49 05:51 RBC (4.30-5.90) m/uL Hgb (13.0-17.5) gm/dL Hct (39.0-53.0) % MCHC (31.0-37.0) g/dL RDW (11.5-15.5) % Plt Count (150-450) k/uL Lymphocytes # (1.0-4.8) k/uL Chloride 110 H (98-107) mmol/L BUN 56 H (9-20) mg/dL Creatinine 2.71 H (0.66-1.25) mg/dL Glucose 64 L (74-99) mg/dL POC Glucose (mg/dL) 117 H 67 L (75-99) mg/dL 01/08/17 01/08/17 01/08/17 Range/Units 05:51 11:53 16:49 RBC 2.92 L (4.30-5.90) m/uL Hgb 8.2 L (13.0-17.5) gm/dL Hct 27.1 L (39.0-53.0) % MCHC 30.2 L (31.0-37.0) g/dL RDW 15.9 H (11.5-15.5) % Plt Count 96 L (150-450) k/uL Lymphocytes # 0.3 L (1.0-4.8) k/uL Chloride (98-107) mmol/L BUN (9-20) mg/dL Creatinine (0.66-1.25) mg/dL Glucose (74-99) mg/dL POC Glucose (mg/dL) 184 H 187 H (75-99) mg/dL Diabetes panel 01/08/17 Range/Units 05:51 Sodium 145 (137-145) mmol/L Potassium 4.3 (3.5-5.1) mmol/L Chloride 110 H (98-107) mmol/L Carbon Dioxide 25 (22-30) mmol/L BUN 56 H (9-20) mg/dL Creatinine 2.71 H (0.66-1.25) mg/dL Glucose 64 L (74-99) mg/dL Calcium 9.9 (8.4-10.2) mg/dL Calcium panel 01/08/17 Range/Units 05:51 Calcium 9.9 (8.4-10.2) mg/dL Pituitary panel 01/08/17 Range/Units 05:51 Sodium 145 (137-145) mmol/L Potassium 4.3 (3.5-5.1) mmol/L Chloride 110 H (98-107) mmol/L Carbon Dioxide 25 (22-30) mmol/L BUN 56 H (9-20) mg/dL Creatinine 2.71 H (0.66-1.25) mg/dL Glucose 64 L (74-99) mg/dL Calcium 9.9 (8.4-10.2) mg/dL Adrenal panel 01/08/17 Range/Units 05:51 Sodium 145 (137-145) mmol/L Potassium 4.3 (3.5-5.1) mmol/L Chloride 110 H (98-107) mmol/L Carbon Dioxide 25 (22-30) mmol/L BUN 56 H (9-20) mg/dL Creatinine 2.71 H (0.66-1.25) mg/dL Glucose 64 L (74-99) mg/dL Calcium 9.9 (8.4-10.2) mg/dL Assessment and Plan Plan: Patient has a history of straining and hemorrhoid banding. Await colonoscopy results. Will follow peripherally. JAKUB
[2017-01-08] MEDS: FUROSEMIDE 10 MG/ML 10 ML VIAL IV SCH (14:34)
--- NOTE | 2017-01-08 15:48 | P.PN ---
Progress Note - Text DATE OF SERVICE: 01/08/2017 PRESENTING COMPLAINT: Shortness of breath INTERVAL HISTORY: This patient presented with an acute exacerbation of CHF. Today, respirations mildly labored at rest. Ambulatory to and from the bathroom, tolerating his diet. REVIEW OF SYSTEMS: Done for constitutional ,cardiovascular, GI, pulmonary with relevant findings as above, CURRENT MEDICATIONS Zyloprim 100 mg by mouth daily, Lipitor 40 mg by mouth at bedtime, Coreg 50 mg by mouth daily, Protonix 40 mg IV push, GoLYTELY, Aldactone 25 mg by mouth daily PHYSICAL EXAM: VITAL SIGNS: Temperature 97.3, pulse 62 and respiratory rate 18, blood pressure 136/63, oxygen saturation 94% on room air. GENERAL APPEARANCE: Obese build. Lying in bed, not in distress. EYES: Pupils equal. Conjunctiva normal. NECK: JVD not raised. Mass not palpable. RESPIRATORY: Respiratory effort normal. Lungs crackles bilaterally to auscultation. CARDIOVASCULAR: First and second sounds normal. Moderate edema. ABDOMEN: Soft. Liver and spleen not palpable. No tenderness. No mass palpable. PSYCHIATRY: Alert and oriented x3. Mood and affect normal. NEUROLOGICAL: Cranial nerves grossly intact. No facial asymmetry. Power and sensation grossly intact INVESTIGATIONS: Hemoglobin 8.2, platelet count 96, BUNs 56, creatinine 2.71, blood glucose 67, troponin 0.037. Chest x-ray reveals COPD mild changes heart failure. ASSESSMENT: 1. Acute on chronic congestive heart failure exacerbation from diastolic dysfunction, ejection fraction 55-60%, underlying coronary artery disease. 2. Chronic from thrombocytopenia, likely idiopathic thrombocytopenic purpura 3. Bright red blood per rectum, scheduled for colonoscopy on Wednesday, hemorrhoidectomy possibly with surgical services. 4. Diabetes mellitus type 2, chronically on insulin. 5. Essential hypertension. 6. Hyperlipidemia. 7. Complete heart block with AICD in place. 8. Chronic obstructive pulmonary disease is an ex-smoker. 9. Peripheral arterial disease 10. Secondary pulmonary hypertension secondary to chronic obstructive pulmonary disease. 11. Chronic kidney disease, stage III, probably secondary to diabetic nephropathy. 12. Hypertension with chronic kidney disease. PLAN: Amaryl stopped secondary to low a.m. and p.m. blood sugars. Sliding scale will remain in place for any incidence of hyperglycemia. Patient to be prepped for colonoscopy Wednesday night. Surgical services will make further decisions regarding hemorrhoidectomy once colonoscopy complete. HALL SUPERVISOR statement: Patient was seen and examined by nurse practitioner Perri Fernández in all elements of the case discussed with attending is Dr. Jerez
[2017-01-08 16:52] LABS: Glucose,Whole Blood 187 mg/dL (75-99)
[2017-01-08] MEDS ORDERED: NON-FORMULARY DRUG (Carvedilol [Coreg] 25 MG) PO SCH (17:30)
[2017-01-08] MEDS: ATORVASTATIN 40 MG TAB PO SCH (20:45)
[2017-01-08 20:55] LABS: Glucose,Whole Blood 168 mg/dL (75-99)
[2017-01-09 06:41] LABS: Glucose,Whole Blood 66 mg/dL (75-99)
[2017-01-09] MEDS: INSULIN LISPRO (humaLOG) 300 UNIT/3 ML VIAL SQ SCH ×4 (06:56→21:40)
[2017-01-09] MEDS: CARVEDILOL 12.5 MG TAB PO SCH ×2 (06:56→17:50)
[2017-01-09 07:18] LABS: Glucose,Whole Blood 85 mg/dL (75-99)
[2017-01-09] MEDS ORDERED: CARVEDILOL 50 MG PO SCH (07:30)
[2017-01-09] MEDS: FUROSEMIDE 10 MG/ML 10 ML VIAL IV SCH (08:04)
[2017-01-09] MEDS: PANTOPRAZOLE 40 MG/10 ML VIAL IVP SCH ×2 (08:04→20:30)
[2017-01-09] MEDS: hydrALAZINE HCL 25 MG TAB PO SCH ×2 (08:04→20:31)
[2017-01-09] MEDS: ALLOPURINOL 100 MG TAB PO SCH (08:05)
[2017-01-09] MEDS: ASPIRIN 81 MG CHEW PO SCH (08:05)
[2017-01-09] MEDS: SPIRONOLACTONE 25 MG TAB PO SCH (08:05)
[2017-01-09] MEDS: DOCUSATE 100 MG CAP PO SCH ×2 (08:05→20:31)
[2017-01-09] MEDS: LISINOPRIL 20 MG TAB PO SCH (08:05)
[2017-01-09] MEDS: FOLIC ACID 1 MG TAB PO SCH (08:05)
[2017-01-09] MEDS: PREDNISOLONE LEFT EYE SCH ×2 (08:05→20:30)
[2017-01-09] MEDS: GENTAMICIN LEFT EYE SCH ×2 (08:05→20:30)
[2017-01-09] MEDS: EYE LEFT EYE SCH ×2 (08:06→20:30)
[2017-01-09] MEDS: KETOROLAC 0.5% LEFT EYE SCH ×2 (08:06→20:30)
[2017-01-09 10:40] LABS: Basophils % (A) 0 %; CH 28.3; CHCM 31.1; Eosinophils # (A) 0.2 k/uL (0-0.7); Eosinophils % (A) 3 %; HCT 26.5 % (39.0-53.0); HDW 2.74; HGB 8.5 gm/dL (13.0-17.5); Hypochromasia Slight; Luc # (Auto) 0.07; Luc % (Auto) 1; Lymphocytes # (A) 0.3 k/uL (1.0-4.8); Lymphocytes % (A) 5 %; MCH 29.3 pg (25.0-35.0); MCV 91.3 fL (80.0-100.0); Mean Platelet Volume 9.9; Monocytes # (A) 0.4 k/uL (0-1.0); Monocytes % (A) 6 %; Neutrophils # (A) 5.5 k/uL (1.3-7.7); Neutrophils % (A) 85 %; RBC 2.91 m/uL (4.30-5.90); RDW 15.7 % (11.5-15.5); WBC 6.5 k/uL (3.8-10.6); WBC (Perox) 6.85
[2017-01-09 11:44] LABS: Calcium 10.3 mg/dL (8.4-10.2); Potassium 4.8 mmol/L (3.5-5.1)
[2017-01-09 11:57] LABS: Glucose,Whole Blood 197 mg/dL (75-99)
--- NOTE | 2017-01-09 12:03 | P.PN ---
Subjective Principal diagnosis: Anemia, congestive heart failure This is a 66-year-old gentleman with history of coronary artery disease and prior bypass surgery, prior angioplasty, ischemic cardio myopathy with prior AICD implantation, hypertension, hyperlipidemia, chronic renal failure, diabetes, who presented to the hospital with symptoms of progressively worsening shortness of breath as well as bilateral leg edema. He is currently receiving treatment for diastolic congestive cardiac failure. Patient was also found to be significantly anemic, was seen by GI service in consultation. He is tentatively scheduled to undergo colonoscopy on wednesday. Aspirin and Plavix will be placed on hold for this procedure. Overall the patient states he's feeling mildly better today. Currently on oral diuretics. Hemoglobin 8.5 today. Objective - Vital Signs Vital signs: Vital Signs Temp 97.5 F L 01/09/17 08:00 Pulse 62 01/09/17 08:00 Resp 18 01/09/17 08:00 BP 140/60 01/09/17 08:00 Pulse Ox 97 01/09/17 08:00 Intake & Output 01/08/17 01/09/17 01/09/17 18:59 06:59 18:59 Intake Total 360 Output Total 930 1550 Balance -570 -1550 Weight 83.1 kg Intake: Oral 360 Output: Urine 930 1550 Other: Voiding Method Urinal Urinal Urinal # Voids 1 - Exam PHYSICAL EXAMINATION: HEENT: Head is atraumatic, normocephalic. Pupils equal, round. Neck is supple. There is no elevated jugular venous pressure. HEART EXAMINATION: Heart S1 and S2 systolic murmur is heard. CHEST EXAMINATION: Lungs reveal diminished air entry to bilateral bases. ABDOMEN: Soft, nontender. Bowel sounds are heard. No organomegaly noted. EXTREMITIES: 2+ peripheral pulses with trace evidence of peripheral edema and no calf tenderness noted. NEUROLOGIC patient is awake, alert and oriented -3. . - Labs CBC & Chem 7: 01/09/17 06:05 01/09/17 11:10 Labs: Abnormal Lab Results - Last 24 Hours (Table) 01/08/17 01/08/17 01/09/17 Range/Units 16:49 20:54 06:05 RBC 2.91 L (4.30-5.90) m/uL Hgb 8.5 L (13.0-17.5) gm/dL Hct 26.5 L (39.0-53.0) % RDW 15.7 H (11.5-15.5) % Plt Count 90 L (150-450) k/uL Lymphocytes # 0.3 L (1.0-4.8) k/uL BUN (9-20) mg/dL Creatinine (0.66-1.25) mg/dL Glucose (74-99) mg/dL POC Glucose (mg/dL) 187 H 168 H (75-99) mg/dL Calcium (8.4-10.2) mg/dL 01/09/17 01/09/17 01/09/17 Range/Units 06:39 11:10 11:53 RBC (4.30-5.90) m/uL Hgb (13.0-17.5) gm/dL Hct (39.0-53.0) % RDW (11.5-15.5) % Plt Count (150-450) k/uL Lymphocytes # (1.0-4.8) k/uL BUN 47 H (9-20) mg/dL Creatinine 2.50 H (0.66-1.25) mg/dL Glucose 209 H (74-99) mg/dL POC Glucose (mg/dL) 66 L 197 H (75-99) mg/dL Calcium 10.3 H (8.4-10.2) mg/dL Assessment and Plan (1) Diastolic CHF, acute on chronic Status: Acute (2) Severe anemia Status: Acute (3) Chronic renal disease Status: Acute (4) CAD (coronary artery disease) Status: Acute (5) Hx of CABG Status: Acute (6) Ischemic cardiomyopathy Status: Acute (7) AICD (automatic cardioverter/defibrillator) present Status: Acute (8) Diabetes Status: Acute (9) HTN (hypertension) Status: Acute (10) Hyperlipemia Status: Acute Plan: From cardiology's perspective, we'll recommend to continue current dose diuretics.. Check lytes BUN and creatinine in the morning. Patient will be scheduled to undergo colonoscopy on Wednesday with Dr. Cr Field. DNP note has been reviewed, I agree with a documented findings and plan of care. Patient was seen and examined.
[2017-01-09 12:06] VITALS: BMI 27.0
--- NOTE | 2017-01-09 12:39 | PN ---
Mr. Magdaleno is being followed for acute on chronic kidney disease. He was initially admitted for decompensated heart failure with previous history of CABG and ejection fraction of 30% seems to be ( ) ejection fraction 55 to 60% as per documentation of last notes. He is clinically doing much better. No overnight events. He was also noticed to have bright red blood per rectum. He is scheduled to go for colonoscopy Wednesday along with possible hemorrhoidectomy. He does have a history of hemorrhoids with history of hemorrhoidal banding in the past. Denies any use of NSAIDs. He was on baby aspirin and Plavix at home. Also, the patient at present resting comfortably in no acute distress, continues to lose weight. Lost almost 10 pounds. Currently, overnight negative balance of around 2 liters. Currently euvolemic. No over acute distress. VITAL SIGNS: Afebrile. Respiratory 18 per minute. Pulse 60 per minute, blood pressure 156/71, SATS 95 on room air. GENERAL: The patient is sitting comfortably no acute distress. LUNGS: Clear to auscultation. CARDIOVASCULAR: Regular rate and rhythm. S1, S2. ABDOMEN: Soft nontender. EXTREMITIES: Bilateral pulses, no edema. LABS: No labs available today so far. Yesterday, sodium 145, potassium 4.3. Creatinine was 2.7 with baseline creatinine around 2. IMPRESSION: 1. Nonoliguric acute kidney injury secondary to cardiorenal syndrome. Creatinine at admission 2.7. No follow-up labs. 2. Decompensated versus systolic heart failure although it seems ejection fraction was around 55 to 60%. Previous documentations ejection fraction around 30%. Patient clinically compensated. 3. Bright red blood per rectum along with anemia going for colonoscopy Wednesday. 4. Chronic kidney disease stage III, likely diabetic kidney disease along with chronic cardiorenal syndrome, baseline creatinine around 2.0. 5. Hypertension with underlying chronic kidney disease, stable. RECOMMENDATIONS: 1. Recommend giving a trial of oral Torsemide given better oral bioavailability. The patient is clinically euvolemic, can attempt Torsemide 20 mg to keep I's and O's equal. Can titrate the dose further up if needed, even if discharged would recommend discharging on Torsemide over Lasix given better oral bioavailability easier titration. 2. Check BMP, along with CBC today. 3. Continue to monitor strict I's and O's with daily weight. Thank you, Dr. Jerez for allowing me to participate in care of this patient. We will follow the patient with you.
--- NOTE | 2017-01-09 14:40 | P.PN ---
Progress Note - Text DATE OF SERVICE: 01/09/2017 PRESENTING COMPLAINT: Shortness of breath INTERVAL HISTORY: This patient presented with an acute exacerbation of CHF. Today, respirations mildly labored with exertion. Received 80 mg of IV Lasix yesterday twice and diuresed well. Ambulatory to and from the bathroom, tolerating his diet. REVIEW OF SYSTEMS: Done for constitutional ,cardiovascular, GI, pulmonary with relevant findings as above, CURRENT MEDICATIONS Zyloprim 100 mg by mouth daily, Lipitor 40 mg by mouth at bedtime, Coreg 50 mg by mouth daily, Protonix 40 mg IV push, GoLYTELY, Aldactone 25 mg by mouth daily PHYSICAL EXAM: VITAL SIGNS: Temperature 97.5, pulse 62, respirations 18, blood pressure 140/60 oxygen saturation 97% on room air GENERAL APPEARANCE: Obese build. Lying in bed, not in distress. EYES: Pupils equal. Conjunctiva normal. NECK: JVD not raised. Mass not palpable. RESPIRATORY: Respiratory effort is labored. Lungs scattered crackles bilaterally ,improved. CARDIOVASCULAR: First and second sounds normal. NO edema . ABDOMEN: Soft. Liver and spleen not palpable. No tenderness. No mass palpable. PSYCHIATRY: Alert and oriented x3. Mood and affect normal. NEUROLOGICAL: Cranial nerves grossly intact. No facial asymmetry. Power and sensation grossly intact INVESTIGATIONS: BUNs 47, creatinine 2.50 ASSESSMENT: 1. Acute on chronic congestive heart failure exacerbation from diastolic dysfunction, ejection fraction 55-60%, compensated, underlying coronary artery disease. 2. Chronic thrombocytopenia, likely idiopathic thrombocytopenic purpura 3. Bright red blood per rectum, scheduled for colonoscopy on Wednesday. 4. Diabetes mellitus type 2, chronically on insulin. 5. Essential hypertension. 6. Hyperlipidemia. 7. Complete heart block with AICD in place. 8. Chronic obstructive pulmonary disease is an ex-smoker. 9. Peripheral arterial disease 10. Secondary pulmonary hypertension secondary to chronic obstructive pulmonary disease. 11. Chronic kidney disease, stage III, probably secondary to diabetic nephropathy. 12. Hypertension with chronic kidney disease. PLAN: IV Lasix stopped today, nephrology added trial of torsemide.Colonoscopy scheduled for Wednesday. We'll monitor renal function closely, continue current medication and treatment plan. FIRM ADMINISTRATOR statement: Patient was seen and examined by nurse practitioner Perri Fernández in all elements of the case discussed with attending is Dr. Jerez
[2017-01-09] MEDS: TORSEMIDE 20 MG TAB PO SCH (15:55)
--- NOTE | 2017-01-09 17:34 | PN ---
DATE OF SERVICE: 01/08/2017 ATTENDING NOTE: This patient was seen and examined by me on 01/08/17. I reviewed the note of my nurse practitioner, Ms. Fernández. Discussed. Additional findings below. Patient admitted with CHF exacerbation. Breathing is somewhat better. On examination, JVD is raised. LUNGS: Decreased breath sounds. Some basal crackles. Some edema is present. INVESTIGATIONS: Hemoglobin 8.2. ASSESSMENT: 1. Acute congestive heart failure exacerbation from diastolic dysfunction, ejection fraction 55% to 60%, from underlying coronary artery disease, slow to respond. 2. Bright red blood per rectum; scheduled for colonoscopy on Wednesday. Prior history of hemorrhoidectomy. 3. History of hemorrhoidectomy. PLAN: Will increase patient's IV Lasix. Will repeat a chest x-ray. ( ) that I reviewed did continue to show pulmonary edema; hence the dose of IV Lasix was increased.
[2017-01-09 17:47] LABS: Glucose,Whole Blood 158 mg/dL (75-99)
--- NOTE | 2017-01-09 18:23 | PN ---
Patient is a 66-year-old pleasant white male admitted to the hospital with acute lower gastrointestinal bleed. He had multiple episodes of bright red blood per rectum. The patient is on aspirin and Plavix, which has been on hold. When he came into the emergency room, his hemoglobin was 9 yesterday and this morning it is 8.5 g/dL. Since yesterday he did not have any further episodes of bleeding. No abdominal pain. No nausea or vomiting. Overall he is feeling better. On physical examination, appears comfortable in no apparent distress. Vital signs are stable. Blood pressure 156/75, pulse rate 60, temperature 97.1. HEENT: Examination unremarkable. Conjunctivae pink. Sclerae anicteric. Oral cavity no lesions. NECK: No JVD or lymph node enlargement. Chest was clear to auscultation. HEART: Regular rate and rhythm. ABDOMEN: Soft. Bowel sounds are positive. No organomegaly. EXTREMITIES: No pedal edema. SKIN: No rashes. NEURO: Alert and oriented x3. No focal deficits. Labs from today, hemoglobin 8.1. IMPRESSION: 1. Acute lower gastrointestinal bleed, possibly diverticular in nature, of course hemorrhoidal bleeding or other colon pathology cannot be excluded. He is clinically and hemodynamically stable and last hemoglobin is 8.2 g/dL. 2. Congestive heart failure which is stable. RECOMMENDATIONS: 1. Repeat CBC in the morning. 2. We will proceed with a colonoscopy on Wednesday. Discussed with the patient the risks, benefits and complications of the procedure. He is agreeable to it. 3. In the meantime continue to hold off aspirin and Plavix. Thank you for this consultation.
[2017-01-09] MEDS: ATORVASTATIN 40 MG TAB PO SCH (20:31)
[2017-01-09 21:13] LABS: Glucose,Whole Blood 172 mg/dL (75-99)
--- NOTE | 2017-01-09 21:29 | PN ---
Attending note: This patient was seen and examined by me earlier today. I reviewed the note of my nurse practitioner, Ms. Fernández and discussed additional findings as below. The patient admitted with CHF exacerbation and bleeding per rectum. I increased the dose of Lasix yesterday. This morning the patient feeling much better. Feels great. Up and about. Edema is gone down. Seen by Dr. Blas purchasing administrative assistant earlier who switched him over to oral Torsemide. On examination, lungs improved air entry minimal crackles. Edema minimal. CARDIOVASCULAR: First and second sounds normal. ASSESSMENT: 1. Acute on chronic congestive heart failure exacerbation diastolic dysfunction now compensated. 2. Recurrent gastrointestinal bleed in a patient who had previous hemorrhoidectomy pending colonoscopy. PLAN: Care was discussed with the patient. Electrolytes are noted. Patient's creatinine is 2.5, await colonoscopy.
[2017-01-09 22:21] VITALS: RESP 16
[2017-01-09] MEDS: ZOLPIDEM 5 MG TAB PO PRN (23:28)
[2017-01-10 05:53] LABS: Glucose,Whole Blood 103 mg/dL (75-99)
[2017-01-10] MEDS: INSULIN LISPRO (humaLOG) 300 UNIT/3 ML VIAL SQ SCH ×4 (06:17→22:36)
[2017-01-10] MEDS: CARVEDILOL 12.5 MG TAB PO SCH ×2 (06:31→17:50)
[2017-01-10 06:48] LABS: Basophils % (A) 0 %; CH 28.3; CHCM 30.5; Eosinophils # (A) 0.2 k/uL (0-0.7); Eosinophils % (A) 3 %; HCT 28.1 % (39.0-53.0); HDW 2.66; HGB 8.6 gm/dL (13.0-17.5); Hypochromasia Moderate; Luc # (Auto) 0.07; Luc % (Auto) 1; Lymphocytes # (A) 0.4 k/uL (1.0-4.8); Lymphocytes % (A) 6 %; MCH 28.5 pg (25.0-35.0); MCHC 30.6 g/dL (31.0-37.0); MCV 93.1 fL (80.0-100.0); Mean Platelet Volume 10.1; Monocytes # (A) 0.3 k/uL (0-1.0); Monocytes % (A) 5 %; Neutrophils # (A) 5.2 k/uL (1.3-7.7); Neutrophils % (A) 84 %; RBC 3.02 m/uL (4.30-5.90); RDW 15.8 % (11.5-15.5); WBC 6.2 k/uL (3.8-10.6); WBC (Perox) 6.36
[2017-01-10 07:07] LABS: Calcium 10.1 mg/dL (8.4-10.2); Potassium 4.9 mmol/L (3.5-5.1)
[2017-01-10] MEDS: PANTOPRAZOLE 40 MG/10 ML VIAL IVP SCH ×2 (08:14→21:25)
[2017-01-10] MEDS: SPIRONOLACTONE 25 MG TAB PO SCH (08:15)
[2017-01-10] MEDS: FOLIC ACID 1 MG TAB PO SCH (08:15)
[2017-01-10] MEDS: hydrALAZINE HCL 25 MG TAB PO SCH ×2 (08:15→21:25)
[2017-01-10] MEDS: TORSEMIDE 20 MG TAB PO SCH (08:15)
[2017-01-10] MEDS: ALLOPURINOL 100 MG TAB PO SCH (08:15)
[2017-01-10] MEDS: LISINOPRIL 20 MG TAB PO SCH (08:15)
[2017-01-10] MEDS: DOCUSATE 100 MG CAP PO SCH ×2 (08:16→21:24)
[2017-01-10] MEDS: ASPIRIN 81 MG CHEW PO SCH (08:16)
[2017-01-10] MEDS: GENTAMICIN LEFT EYE SCH ×2 (12:17→21:24)
[2017-01-10] MEDS: PREDNISOLONE LEFT EYE SCH ×2 (12:17→21:24)
[2017-01-10] MEDS: EYE LEFT EYE SCH ×2 (12:17→21:24)
[2017-01-10] MEDS: KETOROLAC 0.5% LEFT EYE SCH ×2 (12:17→21:24)
[2017-01-10 12:40] LABS: Glucose,Whole Blood 159 mg/dL (75-99)
--- NOTE | 2017-01-10 14:05 | PN ---
Mr. Magdaleno is being followed for nonoliguric acute kidney injury from underlying cardiorenal syndrome. Currently doing much better. Initially admitted for decompensated systolic heart failure based on previous echo of ejection fraction 30%. Repeat echo showing EF within normal limits. Patient overall doing much better and was switched to oral Torsemide yesterday, continues to maintain good urine output. He is scheduled to go for colonoscopy given bright red per rectum history and known previous history of hemorrhoids with requiring banding in the past. VITAL SIGNS: Afebrile, blood pressure 129/60, pulse 60 per minute, sats 95% room air. GENERAL: The patient is lying comfortably in bed. No acute distress. LUNGS: Clear to auscultation bilaterally. CARDIOVASCULAR: Regular rate and rhythm. S1, S2. ABDOMEN: Soft, nontender. EXTREMITIES: Bilateral pulses, no edema. LABORATORY DATA: Sodium 144, potassium 4.9, chloride 108, CO2 of 27, creatinine 2.8, up from 2.5. IMPRESSION: 1. Nonoliguric acute kidney injury secondary to cardiorenal syndrome. Creatinine has been improving until today. ( ) increased again from 2.5 to 2.8. No overt risk factors. Urine output is good. He was switched on oral Torsemide yesterday. 2. Diastolic heart failure, compensated. 3. Bright red per rectum. No further episodes going for colonoscopy tomorrow. 4. Chronic kidney disease stage III baseline creatinine around 2.0. 5. Hypertension with underlying chronic kidney disease. Stable. RECOMMENDATIONS: 1. Check urine, lytes, along with urea and creatinine, continue diuretics at the current dose. No overt risk factors for increase in his creatinine and at this point other than his diuretics, no signs of hypovolemia. 2. Check repeat BMP in the morning. Thank you, Dr. Jerez, for allowing me to participate in the care of this patient. We will follow the patient along with you.
[2017-01-10] MEDS ORDERED: PEG 3350-NA SULF,BICARB,CL/KCL 4,000 ML BOTTLE PO ONE (15:00)
--- NOTE | 2017-01-10 15:09 | P.PN ---
Progress Note - Text DATE OF SERVICE: 01/10/2017 PRESENTING COMPLAINT: Shortness of breath INTERVAL HISTORY: This patient presented with an acute exacerbation of CHF. Today, breathing easily and looks comfortable. Ambulatory in and around the room, good appetite , tolerating his diet, preparing for colonoscopy on Wednesday. REVIEW OF SYSTEMS: Done for constitutional ,cardiovascular, GI, pulmonary with relevant findings as above, CURRENT MEDICATIONS Zyloprim 100 mg by mouth daily, Lipitor 40 mg by mouth at bedtime, Coreg 50 mg by mouth daily, Protonix 40 mg IV push, GoLYTELY, Aldactone 25 mg by mouth daily PHYSICAL EXAM: VITAL SIGNS: Temperature 96.9, pulse 68, respiratory rate 16, blood pressure 146 /68, oxygen saturation 94% on room air. GENERAL APPEARANCE: . Lying in bed, comfortable. EYES: Pupils equal. Conjunctiva normal. NECK: JVD not raised. Mass not palpable. RESPIRATORY: Respiratory effort is labored. Lungs clear to ascultation.. CARDIOVASCULAR: First and second sounds normal. NO edema . ABDOMEN: Soft. Liver and spleen not palpable. No tenderness. No mass palpable. PSYCHIATRY: Alert and oriented x3. Mood and affect normal. INVESTIGATIONS: hemoglobin 8.6, platelet count 93, BUN 55, creatinine 2.80, ASSESSMENT: 1. Acute on chronic congestive heart failure exacerbation from diastolic dysfunction, ejection fraction 55-60%, improved underlying coronary artery disease 2. Chronic thrombocytopenia, likely idiopathic thrombocytopenic purpura 3. Bright red blood per rectum, scheduled for colonoscopy on Wednesday. 4. Diabetes mellitus type 2, chronically on insulin. 5. Essential hypertension. 6. Hyperlipidemia. 7. Complete heart block with AICD in place. 8. Chronic obstructive pulmonary disease is an ex-smoker. 9. Peripheral arterial disease 10. Secondary pulmonary hypertension secondary to chronic obstructive pulmonary disease. 11. Chronic kidney disease, stage III, probably secondary to diabetic nephropathy. 12. Hypertension with chronic kidney disease. PLAN: Continue current medication and treatment plan. Colonoscopy on Wednesday morning. TICKET CHOPPER ASSEMBLER statement: Patient was seen and examined by nurse practitioner Perri Fernández in all elements of the case discussed with attending is Dr. Jerez
--- NOTE | 2017-01-10 17:32 | PN ---
This is a gentleman with history of congestive heart failure who came in with some exacerbation, but more importantly, had anemia with a possible blood loss. He is going to have an endoscopy tomorrow. His vital signs are stable. His breathing is better. S1, S2 heard. JVD is evident. S1, S2 is audible, short systolic murmur noted. Lungs are clear. Abdomen and lower extremity exam otherwise unchanged.
[2017-01-10 17:49] LABS: Glucose,Whole Blood 124 mg/dL (75-99)
[2017-01-10] MEDS: ATORVASTATIN 40 MG TAB PO SCH (21:24)
[2017-01-10 22:51] LABS: Glucose,Whole Blood 87 mg/dL (75-99)
[2017-01-11] MEDS: ZOLPIDEM 5 MG TAB PO PRN (00:07)
[2017-01-11 02:24] LABS: Glucose,Whole Blood 92 mg/dL (75-99)
[2017-01-11 05:57] LABS: Glucose,Whole Blood 100 mg/dL (75-99)
[2017-01-11] MEDS: CARVEDILOL 12.5 MG TAB PO SCH (06:30)
[2017-01-11] MEDS: INSULIN LISPRO (humaLOG) 300 UNIT/3 ML VIAL SQ SCH ×2 (06:30→11:48)
[2017-01-11 06:53] LABS: Calcium 10.3 mg/dL (8.4-10.2); Potassium 4.7 mmol/L (3.5-5.1)
[2017-01-11] MEDS ORDERED: PANTOPRAZOLE 40 MG TABLET PO SCH (08:00)
[2017-01-11] MEDS: LISINOPRIL 20 MG TAB PO SCH (08:21)
[2017-01-11] MEDS: FOLIC ACID 1 MG TAB PO SCH (08:21)
[2017-01-11] MEDS: hydrALAZINE HCL 25 MG TAB PO SCH (08:21)
[2017-01-11] MEDS: ALLOPURINOL 100 MG TAB PO SCH (08:22)
[2017-01-11] MEDS: SPIRONOLACTONE 25 MG TAB PO SCH (08:22)
[2017-01-11] MEDS: TORSEMIDE 20 MG TAB PO SCH (08:22)
[2017-01-11] MEDS: KETOROLAC 0.5% LEFT EYE SCH (08:22)
[2017-01-11] MEDS: EYE LEFT EYE SCH (08:22)
[2017-01-11] MEDS: GENTAMICIN LEFT EYE SCH (08:23)
[2017-01-11] MEDS: PREDNISOLONE LEFT EYE SCH (08:23)
[2017-01-11] MEDS: DOCUSATE 100 MG CAP PO SCH (08:23)
--- NOTE | 2017-01-11 11:17 | PN ---
DATE OF SERVICE: 01/10/2017 The patient seen and examined by me earlier today. Reviewed the note of my nurse practitioner, Ms. Fernández. Discussed additional findings below. The patient presented with CHF exacerbations. Now stabilized. Awaiting colonoscopy. On examination, lungs are clear. CARDIOVASCULAR: First and second sounds normal. No edema. ASSESSMENT: 1. Acute congestive heart failure exacerbation, now resolved. 2. Intermittent lower gastrointestinal bleed. Awaiting colonoscopy. PLAN: Care was discussed with the patient. Await colonoscopy. Continue current medication and treatment plan.
[2017-01-11 11:45] LABS: Glucose,Whole Blood 104 mg/dL (75-99)
--- NOTE | 2017-01-11 12:18 | PN ---
The patient is seen for follow-up for fluid overload. He does have chronic kidney disease with some element of acute kidney injury which seems to have improved. Patient is maintained on MIC inhibitors. His Lasix is now on hold. Which it was held over the weekend. On examination, blood pressure is 130/57, heart rate 63 per minute. He is afebrile. Examination of the heart S1 and S2. Examination of the lungs: Bilateral breath sounds are heard. ABDOMEN: Soft, nontender. Examination of lower extremities shows no significant edema. PROJECT CONTROLLER exam is grossly intact. The patient is moving all four extremities. Labs revealed, sodium 143, potassium 4.7, BUN 41, serum creatinine 2.5, calcium was 10.3. ASSESSMENT: 1. Acute kidney injury associated with congestive heart failure/volume overload and diuresis currently slightly improved. Patient is maintained on Torsemide at 20 mg daily, which we can continue. He is also maintained on Zestril at 20 mg daily. 2. Congestive heart failure, fluid overload, currently improved. 3. Gastrointestinal bleed; scheduled for colonoscopy today. PLAN: Continue current dose of diuretics and follow as outpatient.
[2017-01-11] MEDS ORDERED: IV FLUID CONTINUATION 1,000 ML IV ONE (12:37)
[2017-01-11] MEDS ORDERED: PROPOFOL 10 MG/ML 20 ML VIAL IV ONE (12:39)
[2017-01-11] MEDS ORDERED: LIDOCAINE 1% INJ 10MG/ML (20 ML MDV) ONE (12:39)
--- NOTE | 2017-01-11 13:01 | P.PCN ---
Date of Procedure: 01/11/17 Preoperative Diagnosis: Postoperative Diagnosis: Procedure(s) Performed: BRIEF HISTORY: Patient is a 66-year-old pleasant male, scheduled for an elective colonoscopy as a part of evaluation of acute lower GI bleed. Was admitted hospital 3 days ago with multiple episodes of bright red blood per rectum. Last hemoglobin yesterday was 8.2 g/dL. PROCEDURE PERFORMED: Colonoscopy with snare polypectomy. PREOPERATIVE DIAGNOSIS: Acute lower GI bleed. IV sedation per Anesthesia. PROCEDURE: After informed consent was obtained, the patient, was brought into the endoscopy unit. IV sedation was administered by Anesthesia under continuous monitoring. Digital rectal examination was normal. Initially the Olympus CF- 160 flexible video colonoscope was then inserted in the rectum, gradually advanced into the cecum without any difficulty. Careful examination was performed as the scope was gradually being withdrawn. Ileocecal valve and the appendiceal orifice were visualized and appeared normal. Prep was excellent. Mucosa of the cecum, ascending colon, appeared normal. In the hepatic flexure there was 1 cm polyp removed by snare polypectomy. In the descending colon there was another 1 cm polyp removed by snare polypectomy. In the rectum revealed 2 small 5 mm polyps removed by snare polypectomy. The rest of the transverse colon, descending colon, sigmoid colon, and rectum appeared normal. Scattered sigmoid diverticulosis seen. Retroflexion was performed in the rectum and inflamed hypertrophic papilla at the dentate line was seen. The patient tolerated the procedure well. IMPRESSION: 1 cm hepatic flexure polyp status post polypectomy 1 cm descending colon polyp status post polypectomy 5 mm 2 rectal polyps status post polypectomy Scattered sigmoid diverticulosis Inflamed hypertrophied anal papilla RECOMMENDATIONS: Findings of this examination were discussed with the patient as well as his family. He'll be started on a regular diet and be discharged home today. He can resume aspirin and Plavix today. Implants: Indications for Procedure: Operative Findings: Description of Procedure:
--- NOTE | 2017-01-11 13:03 | P.PN ---
Progress Note - Text DATE OF SERVICE: 01/11/2017 PRESENTING COMPLAINT: Shortness of breath, GI bleed INTERVAL HISTORY: This patient presented with an acute exacerbation of CHF. Today, breathing easily and looks comfortable. Ambulatory in and around the room, nothing by mouth for colonoscopy today at 12 noon. REVIEW OF SYSTEMS: Done for constitutional ,cardiovascular, GI, pulmonary with relevant findings as above, CURRENT MEDICATIONS Zyloprim 100 mg by mouth daily, Lipitor 40 mg by mouth at bedtime, Coreg 50 mg by mouth daily, Protonix 40 mg IV push, GoLYTELY, Aldactone 25 mg by mouth daily PHYSICAL EXAM: VITAL SIGNS: Temperature 98.6 pulse 63 respirations 16 blood pressure 130/57 oxygen saturation 90% on room air GENERAL APPEARANCE: . Lying in bed, comfortable. EYES: Pupils equal. Conjunctiva normal. NECK: JVD not raised. Mass not palpable. RESPIRATORY: Respiratory effort is unlabored. Lungs diminished to ascultation.. CARDIOVASCULAR: First and second sounds normal. NO edema . ABDOMEN: Soft. Liver and spleen not palpable. No tenderness. No mass palpable. PSYCHIATRY: Alert and oriented x3. Mood and affect normal. INVESTIGATIONS: BUN 41, creatinine 2.50, Accu-Cheks noted ASSESSMENT: 1. Acute on chronic congestive heart failure exacerbation from diastolic dysfunction, ejection fraction 55-60%, improved underlying coronary artery disease 2. Chronic thrombocytopenia, likely idiopathic thrombocytopenic purpura 3. Bright red blood per rectum, scheduled for colonoscopy today. 4. Diabetes mellitus type 2, chronically on insulin. 5. Essential hypertension. 6. Hyperlipidemia. 7. Complete heart block with AICD in place. 8. Chronic obstructive pulmonary disease is an ex-smoker. 9. Peripheral arterial disease 10. Secondary pulmonary hypertension secondary to chronic obstructive pulmonary disease. 11. Chronic kidney disease, stage III, probably secondary to diabetic nephropathy. 12. Hypertension with chronic kidney disease. PLAN: Continue current medication and treatment plan. Colonoscopy on Wednesday. If patient cleared by GI, may be discharged home today. PATTERN DEVELOPER statement: Patient was seen and examined by nurse practitioner Perri Fernández in all elements of the case discussed with attending is Dr. Jerez
--- NOTE | 2017-01-11 13:45 | P.PN ---
Subjective Principal diagnosis: Anemia, congestive heart failure This is a 66-year-old gentleman with history of coronary artery disease and prior bypass surgery, prior angioplasty, ischemic cardio myopathy with prior AICD implantation, hypertension, hyperlipidemia, chronic renal failure, diabetes, who presented to the hospital with symptoms of progressively worsening shortness of breath as well as bilateral leg edema. He is currently receiving treatment for diastolic congestive cardiac failure. Patient was also found to be significantly anemic, was seen by GI service in consultation. He is scheduled to undergo colonoscopy today. Aspirin and Plavix are placed on hold for this procedure. Overall the patient states he's feeling mildly better today. Currently on oral diuretics. Objective - Vital Signs Vital signs: Vital Signs Temp 98.5 F 01/11/17 12:00 Pulse 60 01/11/17 12:00 Resp 16 01/11/17 12:00 BP 176/76 01/11/17 12:00 Pulse Ox 92 L 01/11/17 12:00 Intake & Output 01/10/17 01/11/17 01/11/17 18:59 06:59 18:59 Intake Total 480 50 Output Total 1290 1275 Balance -810 -1275 50 Weight 83.4 kg Intake: IV 50 Oral 480 Output: Urine 1290 1275 Other: Voiding Method Urinal Urinal # Voids 2 1 - Exam PHYSICAL EXAMINATION: HEENT: Head is atraumatic, normocephalic. Pupils equal, round. Neck is supple. There is no elevated jugular venous pressure. HEART EXAMINATION: Heart S1 and S2 systolic murmur is heard. CHEST EXAMINATION: Lungs reveal diminished air entry to bilateral bases. ABDOMEN: Soft, nontender. Bowel sounds are heard. No organomegaly noted. EXTREMITIES: 2+ peripheral pulses with trace evidence of peripheral edema and no calf tenderness noted. NEUROLOGIC patient is awake, alert and oriented -3. . - Labs CBC & Chem 7: 01/10/17 05:44 01/11/17 05:27 Labs: Abnormal Lab Results - Last 24 Hours (Table) 01/10/17 01/11/17 01/11/17 Range/Units 17:44 05:27 05:51 BUN 41 H (9-20) mg/dL Creatinine 2.50 H (0.66-1.25) mg/dL POC Glucose (mg/dL) 124 H 100 H (75-99) mg/dL Calcium 10.3 H (8.4-10.2) mg/dL 01/11/17 Range/Units 11:32 BUN (9-20) mg/dL Creatinine (0.66-1.25) mg/dL POC Glucose (mg/dL) 104 H (75-99) mg/dL Calcium (8.4-10.2) mg/dL Assessment and Plan (1) Diastolic CHF, acute on chronic Status: Acute (2) Severe anemia Status: Acute (3) Chronic renal disease Status: Acute (4) CAD (coronary artery disease) Status: Acute (5) Hx of CABG Status: Acute (6) Ischemic cardiomyopathy Status: Acute (7) AICD (automatic cardioverter/defibrillator) present Status: Acute (8) Diabetes Status: Acute (9) HTN (hypertension) Status: Acute (10) Hyperlipemia Status: Acute Plan: From cardiology's perspective, we'll recommend to continue current dose diuretics.. Check lytes BUN and creatinine in the morning. Patient will be scheduled to undergo colonoscopy on today with Dr. Cr Field. DNP note has been reviewed, I agree with a documented findings and plan of care. Patient was seen and examined.
[2017-01-11 13:46] VITALS: BP 144/63; PULSE 64; TEMP 96.6
[2017-01-11] MEDS ORDERED: hydrALAZINE HCL 25 MG TAB PO SCH (16:00)
[2017-01-11 17:11] LABS: Glucose,Whole Blood 198 mg/dL (75-99)
--- NOTE | 2017-01-11 20:03 | P.DS ---
Providers Date of admission: 01/06/17 21:11 Expected date of discharge: 01/11/17 Attending physician: Arturo Jerez Consults: 01/07/17 07:56 Consult Physician Routine Consulting Provider: Fredo Field Consult Reason/Comments: CHF Do you want consulting provider notified?: Yes, Notify in am 01/07/17 11:00 Consult Physician Routine Consulting Provider: Rachid Hernandez Consult Reason/Comments: Renal failure, current patient Do you want consulting provider notified?: Yes Consult Physician Urgent Consulting Provider: Nav Mcdermott Consult Reason/Comments: GI bleed Do you want consulting provider notified?: Yes 01/07/17 15:16 Consult Physician Routine Consulting Provider: Henok Hale Consult Reason/Comments: blood per rectum Do you want consulting provider notified?: Yes Primary care physician: Félix Sykes [facility] Course: FINAL DIAGNOSES: 1. Acute on chronic congestive heart failure exacerbation from diastolic dysfunction, ejection fraction 55-60%, improved underlying coronary artery disease 2. Chronic thrombocytopenia, likely idiopathic thrombocytopenic purpura 3. Bright red blood per rectum, scheduled for colonoscopy today. 4. Diabetes mellitus type 2, chronically on insulin. 5. Essential hypertension. 6. Hyperlipidemia. 7. Complete heart block with AICD in place. 8. Chronic obstructive pulmonary disease is an ex-smoker. 9. Peripheral arterial disease 10. Secondary pulmonary hypertension secondary to chronic obstructive pulmonary disease. 11. Chronic kidney disease, stage III, probably secondary to diabetic nephropathy. 12. Hypertension with chronic kidney disease. HOSPITAL COURSE: Is a 66-year-old patient of Dr. Sykes who presented with CHF exacerbation, responsive to Lasix. Patient also has underlying chronic kidney disease and has blood that he noted intermittently in his stools. Pulmonology consulted, received Lasix, breathing treatments. Nephrology consulted, given torsemide rather than Lasix, I&O's monitored and daily weight. GI consulted, colonoscopy revealed hepatic flexure, descending, colon polyps status post polypectomy,'s scattered sigmoid diverticulosis, inflamed hypertrophied anal papilla. PHYSICAL EXAM: Respiratory: Respiratory effort normal, lungs clear to auscultation. Cardiovascular: First and second sounds noted, no edema GI: Soft nontender liver and spleen not palpable DISPOSITION: Discharge home to the care of his Patient seen and examined by nurse practitioner Perri Fernández in all elements of the case discussed with attending Dr. Jerez. Procedures: COLONOSCOPY: Hepatic flexure polyp, status post polypectomy, descending colon polyp status post polypectomy, 2 rectal polyps status post polypectomy, sigmoid diverticulosis scattered, inflamed anal papilla Patient Condition at Discharge: Stable Plan - Discharge Summary New Discharge Prescriptions: New Polyethylene Glycol 3350 [Miralax] 17 gm PO DAILY PRN pack PRN Reason: Constipation Torsemide [Demadex] 20 mg PO DAILY #30 tab Carvedilol [Coreg*] 25 mg PO DAILY@1730 #30 tab Carvedilol [Coreg*] 50 mg PO DAILY@0730 #30 tab Continue Glimepiride [Amaryl] 4 mg PO BID Folic Acid 0.4 mg PO DAILY Nitroglycerin Sl Tabs [Nitrostat] 0.4 mg SUBLINGUAL Q5M PRN PRN Reason: Chest Pain Clopidogrel [Plavix] 75 mg PO DAILY #30 tab Aspirin EC [Ecotrin Low Dose] 81 mg PO BID Multivitamins, Thera [Multivitamin (formulary)] 1 tab PO HS HYDROcodone/APAP 7.5-325MG [Sperry 7.5-325] 1 tab PO Q6HR PRN PRN Reason: Pain Atorvastatin [Lipitor] 40 mg PO HS Allopurinol [Zyloprim] 100 mg PO DAILY #30 tab Lisinopril [Zestril] 20 mg PO DAILY Spironolactone [Aldactone] 25 mg PO DAILY Docusate [Colace] 100 mg PO BID #60 cap hydrALAZINE HCL [Apresoline] 25 mg PO BID Insulin NPH Human Isophane [Novolin N] 6 unit SQ HS Ketorolac 0.5% Ophth Soln [Acular 0.5%] 1 drops LEFT EYE BID Gentamicin Sulf/Prednisolone [Pred-G 1% Eye Drops] 1 drop LEFT EYE BID Discontinued Furosemide [Lasix] 40 mg PO DAILY Carvedilol [Coreg] 50 mg PO AC-BRKFST Carvedilol [Coreg] 25 mg PO AC-SUPPER Discharge Medication List Folic Acid 0.4 mg PO DAILY 09/10/15 [History] Glimepiride [Amaryl] 4 mg PO BID 09/10/15 [History] Nitroglycerin Sl Tabs [Nitrostat] 0.4 mg SUBLINGUAL Q5M PRN 09/10/15 [History] Clopidogrel [Plavix] 75 mg PO DAILY #30 tab 09/13/15 [Rx] Aspirin EC [Ecotrin Low Dose] 81 mg PO BID 01/22/16 [History] Atorvastatin [Lipitor] 40 mg PO HS 07/05/16 [History] HYDROcodone/APAP 7.5-325MG [Sperry 7.5-325] 1 tab PO Q6HR PRN 07/05/16 [History] Multivitamins, Thera [Multivitamin (formulary)] 1 tab PO HS 07/05/16 [History] Allopurinol [Zyloprim] 100 mg PO DAILY #30 tab 07/08/16 [Rx] Lisinopril [Zestril] 20 mg PO DAILY 08/04/16 [History] Spironolactone [Aldactone] 25 mg PO DAILY 08/04/16 [History] Docusate [Colace] 100 mg PO BID #60 cap 08/07/16 [Rx] Insulin NPH Human Isophane [Novolin N] 6 unit SQ HS 01/06/17 [History] hydrALAZINE HCL [Apresoline] 25 mg PO BID 01/06/17 [History] Gentamicin Sulf/Prednisolone [Pred-G 1% Eye Drops] 1 drop LEFT EYE BID 01/07/17 [History] Ketorolac 0.5% Ophth Soln [Acular 0.5%] 1 drops LEFT EYE BID 01/07/17 [History] Carvedilol [Coreg*] 25 mg PO DAILY@1730 #30 tab 01/11/17 [Rx] Carvedilol [Coreg*] 50 mg PO DAILY@0730 #30 tab 01/11/17 [Rx] Polyethylene Glycol 3350 [Miralax] 17 gm PO DAILY PRN pack 01/11/17 [Rx] Torsemide [Demadex] 20 mg PO DAILY #30 tab 01/11/17 [Rx] Follow up Appointment(s)/Referral(s): cardiology, [Other] - 1 Week (Dr. Higgins-office will call patient) Félix Sykes MD [Primary Care Provider] - 1-2 days (Linda Rizvi-Wednesday, 01/13 at 3:00pm) Ellen Field MD [STAFF PHYSICIAN] - 1 Week (call to make own appointment) Rachid Hernandez DO [STAFF PHYSICIAN] - 1 Week (call to make own appointment) Patient Instructions/Handouts: Heart Failure (DC), Colonoscopy (GEN) Discharge Disposition: HOME SELF-CARE
--- NOTE | 2017-01-12 11:33 | DS ---
DATE OF ADMISSION: 01/06/2017 DATE OF DISCHARGE: 01/11/2017 ATTENDING NOTE: This patient was seen and examined by me earlier today. I reviewed the discharge summary of my nurse practitioner, Ms. Fernández. Discussed additional findings below. This is a patient admitted with CHF exacerbation and received IV Lasix, responded well, underwent a colonoscopy today. Found to have some polyps and diverticulosis. Doing well. On examination, LUNGS: Decreased breath sounds. CARDIOVASCULAR: First and second sounds normal. More details in FIREARMS INSTRUCTOR note.
== END 2017-01-11 18:02 | disposition home or self-care (01) | DRG 291 ==
LOC: EC 17:39 → 6SEL 21:11
PROVIDERS: ADMIT Hospitalist; ATTEND Hospitalist
PROC: 0DBK8ZZ Excision of Ascending Colon, Via Natural or Artificial Opening Endoscopic (ICD-10-PCS; principal; 2017-01-11 12:05)
PROC: 0DBP8ZZ Excision of Rectum, Via Natural or Artificial Opening Endoscopic (ICD-10-PCS; principal; 2017-01-11 12:05)
PROC: 0DBM8ZZ Excision of Descending Colon, Via Natural or Artificial Opening Endoscopic (ICD-10-PCS; principal; 2017-01-11 12:05)
DX: I13.0 Hypertensive heart and chronic kidney disease with heart failure and stage 1 through stage 4 chronic kidney disease, or unspecified chronic kidney disease (principal); I50.43 Acute on chronic combined systolic (congestive) and diastolic (congestive) heart failure; I44.2 Atrioventricular block, complete; N17.9 Acute kidney failure, unspecified; D69.3 Immune thrombocytopenic purpura; E11.21 Type 2 diabetes mellitus with diabetic nephropathy; N18.4 Chronic kidney disease, stage 4 (severe); D62 Acute posthemorrhagic anemia; I27.2 Other secondary pulmonary hypertension; J44.1 Chronic obstructive pulmonary disease with (acute) exacerbation; E11.22 Type 2 diabetes mellitus with diabetic chronic kidney disease; D12.3 Benign neoplasm of transverse colon; D12.4 Benign neoplasm of descending colon; D63.8 Anemia in other chronic diseases classified elsewhere; E78.5 Hyperlipidemia, unspecified; I25.10 Atherosclerotic heart disease of native coronary artery without angina pectoris; I25.2 Old myocardial infarction; I25.5 Ischemic cardiomyopathy; I73.9 Peripheral vascular disease, unspecified; K57.30 Diverticulosis of large intestine without perforation or abscess without bleeding; K59.00 Constipation, unspecified; K62.1 Rectal polyp; K64.9 Unspecified hemorrhoids; M10.9 Gout, unspecified; Z79.02 Long term (current) use of antithrombotics/antiplatelets; Z79.4 Long term (current) use of insulin; Z79.82 Long term (current) use of aspirin; Z79.84 Long term (current) use of oral hypoglycemic drugs; Z79.899 Other long term (current) drug therapy; Z82.3 Family history of stroke; Z82.5 Family history of asthma and other chronic lower respiratory diseases; Z87.891 Personal history of nicotine dependence; Z88.0 Allergy status to penicillin; Z91.041 Radiographic dye allergy status; Z95.1 Presence of aortocoronary bypass graft; Z95.5 Presence of coronary angioplasty implant and graft; Z95.810 Presence of automatic (implantable) cardiac defibrillator
CPT/HCPCS: 36415; 45385; 71010; 71020; 80048; 80053; 81001; 82272; 82550; 82553; 82728; 83036; 83540; 83550; 83880; 84484; 85025; 85027; 85610; 85730; 88305; 93005; 94760

== ENCOUNTER 2017-01-25 12:14 | Inpatient (IN) | payer MEDICARE, BC ==
--- NOTE | 2017-01-25 12:33 | ED ---
General Adult HPI - General Chief complaint: Shortness of Breath Stated complaint: SOB Time Seen by Provider: 01/25/17 12:28 Source: patient, RN notes reviewed, old records reviewed Mode of arrival: wheelchair Limitations: no limitations - History of Present Illness Initial comments: This is a 66-year-old male here for evaluation of shortness of breath, significant shortness of breath with dyspnea. Patient with significant shortness of breath on arrival to emergency room. Patient's severe history of heart failure, multiple hospital admissions for similar issues. Patient was discharged about 2 weeks ago and again progressively worse ever since. Worsening exertional dyspnea. Waking up in the night short of breath and a unable to lie flat. No fevers or cough or congestion no chest pain. - Related Data Home Medications Medication Instructions Recorded Confirmed Folic Acid 0.4 mg PO HS 09/10/15 01/25/17 Nitroglycerin Sl Tabs [Nitrostat] 0.4 mg SUBLINGUAL Q5M PRN 09/10/15 01/25/17 Aspirin EC [Ecotrin Low Dose] 81 mg PO BID 01/22/16 01/25/17 Atorvastatin [Lipitor] 40 mg PO HS 07/05/16 01/25/17 HYDROcodone/APAP 7.5-325MG [[place] 1 tab PO Q6HR PRN 07/05/16 01/25/17 7.5-325] Lisinopril [Zestril] 20 mg PO DAILY 08/04/16 01/25/17 Insulin NPH Human Isophane 6 unit SQ DAILY 01/06/17 01/25/17 [Novolin N] hydrALAZINE HCL [Apresoline] 25 mg PO BID 01/06/17 01/25/17 Carvedilol [Coreg*] 12.5 mg PO HS 01/25/17 01/25/17 Carvedilol [Coreg*] 25 mg PO DAILY 01/25/17 01/25/17 Isosorbide Mononitrate ER [Imdur] 30 mg PO DAILY PRN 01/25/17 01/25/17 Omeprazole [PriLOSEC] 40 mg PO DAILY PRN 01/25/17 01/25/17 Vitamin E (Dl,Tocopheryl Acet) 400 unit PO DAILY 01/25/17 01/25/17 [Vitamin E] glipiZIDE [Glucotrol] 10 mg PO BID 01/25/17 01/25/17 Previous Rx's Medication Instructions Recorded Clopidogrel [Plavix] 75 mg PO DAILY #30 tab 09/13/15 Allopurinol [Zyloprim] 100 mg PO DAILY #30 tab 07/08/16 Torsemide [Demadex] 20 mg PO DAILY #30 tab 01/11/17 Allergies Allergy/AdvReac Type Severity Reaction Status Date / Time cephalexin monohydrate AdvReac Unknown Verified 01/25/17 12:41 [From Keflex] Penicillins AdvReac Nausea & Verified 01/25/17 12:41 Vomiting Sulfa (Sulfonamide AdvReac Nausea & Verified 01/25/17 12:41 Antibiotics) Vomiting Review of Systems ROS Statement: Those systems with pertinent positive or pertinent negative responses have been documented in the HPI. ROS Other: All systems not noted in ROS Statement are negative. Past Medical History Past Medical History: Coronary Artery Disease (CAD), Chest Pain / Angina, Heart Failure, Diabetes Mellitus, Hyperlipidemia, Hypertension, Myocardial Infarction ([place]), Osteoarthritis (OA), Prostate Disorder, Renal Disease Additional Past Medical History / Comment(s): CHB (has pacemaker), ischemic cardiomyopathy, [facility] RV and placement of BiV ICD, IDDM type II, R elbow bursitis/cellulitis, gout, Last Myocardial Infarction Date:: 10/05/15 History of Any Multi-Drug Resistant Organisms: None Reported Past Surgical History: Coronary Bypass/CABG, Heart Catheterization, Heart Catheterization With Stent, Hernia Repair, Pacemaker Additional Past Surgical History / Comment(s): 10/22/15 upper extremity venogram , 2011 triple bypass at [facility], 2006 PCI with stent cx, 09/2015 PCI with stent to LAD, 10/2015 ccath treat medically, dual chamber pacemaker initial insertion 2004 and replaced in 2011, umbillical hernia repair, several nose sx d/t 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 Defibriliator in january 2016 Past Anesthesia/Blood Transfusion Reactions: No Reported Reaction Date of Last Stent Placement:: 09/2015 Type of Cardiac Device: Permanent Pacemaker Device Placement Date:: 2011 Past Psychological History: No Psychological Hx Reported Smoking Status: Former smoker Past Alcohol Use History: Daily Past Drug Use History: None Reported - Past Family History Father Family Medical History: CVA/TIA Additional Family Medical History / Comment(s): age 83 had several strokes Mother Family Medical History: Cancer, Liver Disease, Osteoarthritis (OA) Additional Family Medical History / Comment(s): mom is still alive at age 91, hx breast cancer, emphysema (pt stated she never smoked) General Exam Limitations: no limitations General appearance: alert, in no apparent distress, anxious, in distress Head exam: Present: atraumatic, normocephalic, normal inspection Eye exam: Present: normal appearance, PERRL, EOMI. Absent: scleral icterus, conjunctival injection, periorbital swelling ENT exam: Present: normal exam, mucous membranes moist Neck exam: Present: normal inspection. Absent: tenderness, meningismus, lymphadenopathy Respiratory exam: Present: normal lung sounds bilaterally, respiratory distress , wheezes (Mild), accessory muscle use, decreased breath sounds, prolonged expiratory. Absent: rales, rhonchi, stridor Cardiovascular Exam: Present: regular rate, normal rhythm, normal heart sounds. Absent: systolic murmur, diastolic murmur, rubs, gallop, clicks GI/Abdominal exam: Present: soft, normal bowel sounds. Absent: distended, tenderness, guarding, rebound, rigid Extremities exam: Present: normal inspection, full ROM, normal capillary refill. Absent: tenderness, pedal edema, joint swelling, calf tenderness Back exam: Present: normal inspection Neurological exam: Present: alert, oriented X3, CN II-XII intact Psychiatric exam: Present: normal affect, normal mood Skin exam: Present: warm, dry, intact, normal color. Absent: rash Course Vital Signs 01/25/17 01/25/17 12:18 12:47 Temperature 97.7 F Pulse Rate 63 64 Respiratory 20 24 Rate Blood Pressure 196/76 175/72 O2 Sat by Pulse 90 L 95 Oximetry - Reevaluation(s) Reevaluation #1: 01/25/17 13:38 Patient remains in same sustain similar breathing status EKG Findings - EKG Comments: EKG Findings:: EKG shows paced rhythm rate of 61, OH 172, QRS 162, QTC 483 Medical Decision Making - Medical Decision Making 66 mal[age] for evaluation of significant exertional dyspnea, PND and orthopnea, patient be admitted for cardiac observation, treatment of heart failure - Lab Data Result diagrams: 01/25/17 12:45 01/25/17 12:45 Lab Results 01/25/17 01/25/17 01/25/17 Range/Units 12:45 12:45 12:45 WBC 6.7 (3.8-10.6) k/uL RBC 3.43 L (4.30-5.90) m/uL Hgb 9.4 L (13.0-17.5) gm/dL Hct 31.7 L (39.0-53.0) % MCV 92.5 (80.0-100.0) fL MCH 27.5 (25.0-35.0) pg MCHC 29.8 L (31.0-37.0) g/dL RDW 15.4 (11.5-15.5) % Plt Count 125 L (150-450) k/uL Neutrophils % 88 % Lymphocytes % 5 % Monocytes % 4 % Eosinophils % 2 % Basophils % 1 % Neutrophils # 5.8 (1.3-7.7) k/uL Lymphocytes # 0.3 L (1.0-4.8) k/uL Monocytes # 0.3 (0-1.0) k/uL Eosinophils # 0.2 (0-0.7) k/uL Basophils # 0.0 (0-0.2) k/uL Hypochromasia Marked PT 10.9 (9.0-12.0) sec INR 1.1 (<1.1) APTT 21.5 L (22.0-30.0) sec Sodium 145 (137-145) mmol/L Potassium 5.8 H (3.5-5.1) mmol/L Chloride 112 H (98-107) mmol/L Carbon Dioxide 23 (22-30) mmol/L Anion Gap 10 mmol/L BUN 46 H (9-20) mg/dL Creatinine 2.20 H (0.66-1.25) mg/dL Est GFR (MDRD) Af Amer 36 (>60 ml/min/1.73 sqM) Est GFR (MDRD) Non-Af 30 (>60 ml/min/1.73 sqM) Glucose 151 H (74-99) mg/dL Calcium 10.3 H (8.4-10.2) mg/dL Magnesium 2.4 H (1.6-2.3) mg/dL Total Bilirubin 0.4 (0.2-1.3) mg/dL AST 16 L (17-59) U/L ALT 29 (21-72) U/L Alkaline Phosphatase 115 (38-126) U/L Total Protein 6.2 L (6.3-8.2) g/dL Albumin 3.8 (3.5-5.0) g/dL - Radiology Data Radiology results: report reviewed (Chest x-ray shows pulmonary edema consistent with heart failure), image reviewed Disposition Clinical Impression: Congestive heart failure, Renal insufficiency syndrome Disposition: ADMITTED IP TO THIS HOSP Condition: Fair Referrals: Félix Sykes MD [Primary Care Provider] - 1-2 days
[2017-01-25 12:59] LABS: Basophils % (A) 1 %; CH 27.6; Eosinophils # (A) 0.2 k/uL (0-0.7); Eosinophils % (A) 2 %; HCT 31.7 % (39.0-53.0); HDW 2.94; HGB 9.4 gm/dL (13.0-17.5); Hypochromasia Marked; Luc # (Auto) 0.05; Luc % (Auto) 1; Lymphocytes # (A) 0.3 k/uL (1.0-4.8); Lymphocytes % (A) 5 %; MCH 27.5 pg (25.0-35.0); MCHC 29.8 g/dL (31.0-37.0); MCV 92.5 fL (80.0-100.0); Mean Platelet Volume 10.3; Monocytes # (A) 0.3 k/uL (0-1.0); Monocytes % (A) 4 %; Neutrophils # (A) 5.8 k/uL (1.3-7.7); Neutrophils % (A) 88 %; RBC 3.43 m/uL (4.30-5.90); RDW 15.4 % (11.5-15.5); WBC 6.7 k/uL (3.8-10.6); WBC (Perox) 6.72
--- NOTE | 2017-01-25 13:05 | XR ---
EXAMINATION TYPE: XR chest 2V DATE OF EXAM: 01/25/2017 COMPARISON: 01/08/17 HISTORY: Shortness of breath FINDINGS: Noted is pulmonary venous congestion with scattered infiltrates. There is also cardiomegaly and small effusions. IMPRESSION: Findings compatible with mild congestive failure. Infiltrates of other etiology are not excluded. Clinical correlation and progress studies are recommended.
[2017-01-25 13:09] LABS: INR 1.1 (<1.1); Prothrombin Time 10.9 sec (9.0-12.0)
[2017-01-25 13:14] LABS: Calcium 10.3 mg/dL (8.4-10.2); Magnesium 2.4 mg/dL (1.6-2.3); Potassium 5.8 mmol/L (3.5-5.1); Total Bilirubin 0.4 mg/dL (0.2-1.3); Total Protein 6.2 g/dL (6.3-8.2)
[2017-01-25 13:15] LABS: Partial Thromboplastin Time 21.5 sec (22.0-30.0)
[2017-01-25 13:41] LABS: Creatine Kinase MB 1.8 ng/mL (0.0-2.4); Troponin I 0.017 ng/mL (0.000-0.034)
[2017-01-25] MEDS ORDERED: NITROGLYCERIN SL TABS 0.4 MG TAB SUBLINGUAL PRN (14:52)
[2017-01-25] MEDS ORDERED: ISOSORBIDE MONONITRATE ER 30 MG TAB.ER.24H PO PRN (14:52)
[2017-01-25] MEDS ORDERED: HYDROcodone/APAP 7.5-325MG 1 EACH TAB PO PRN (14:52)
[2017-01-25] MEDS ORDERED: PANTOPRAZOLE 40 MG TABLET PO PRN (14:52)
[2017-01-25] MEDS ORDERED: CARVEDILOL 12.5 MG TAB PO SCH (14:52)
[2017-01-25 15:10] VITALS: BMI 26.6
[2017-01-25] MEDS: glipiZIDE 10 MG TAB PO SCH (17:02)
[2017-01-25] MEDS: FUROSEMIDE 10 MG/ML 4 ML VIAL IV SCH ×2 (17:02→23:50)
[2017-01-25 17:11] LABS: Glucose,Whole Blood 84 mg/dL (75-99)
--- NOTE | 2017-01-25 19:31 | HP ---
DATE OF ADMISSION: 01/25/2017 CHIEF COMPLAINT: Short of breath. HISTORY OF PRESENT ILLNESS: Mr. Magdaleno is a 66-year-old male with a known history of hypertension, diabetes type 2, hyperlipidemia and CHF with diastolic dysfunction, ejection fraction 50 to 60% who was recently discharged from the hospital on 01/11/2017, came to the hospital with complaints of increased short of breath for the last 4 to 5 days. Apparently patient has gained about eight to nine pounds during this time. Patient was dialyzed last time and was sent home on Torsemide. Furosemide has been changed to Torsemide during last admission. Patient is supposed to follow-up with Dr. Hernandez tomorrow but due to worsening shortness of breath, patient came to the hospital for further evaluation. Patient also has recently had GI bleed and colonoscopy revealed hepatic flexure, descending colon polyps, status post polypectomy and scattered sigmoid diverticulosis and inflamed hypertrophic ( ). The patient follows with Dr. Field as an outpatient. Constipation has been resolved yesterday with MiraLax. The patient had a chest x-ray in the ER that showed compatible with mild congestive heart failure. Patient was also found to have potassium level of 5.8, chloride 112, hemoglobin 9.4. BUN 46, creatinine 2.2. REVIEW OF SYSTEMS: CONSTITUTIONAL: No fever. No chills. No weakness or malaise. RESPIRATORY: No cough or sputum production. Patient does have short of breath. CARDIOVASCULAR: No chest pain. Patient does have short of breath and leg swelling. ABDOMEN: No nausea or vomiting, abdominal pain. Constipation has resolved. GENITOURINARY: No dysuria. No hematuria. ENDOCRINE: Negative. NEUROLOGIC: Negative. MUSCULOSKELETAL: Negative. All other fourteen-point review of systems negative except as above. PAST MEDICAL HISTORY: History of coronary artery disease, status post coronary artery bypass graft, chest pain/angina, and congestive heart failure with diastolic dysfunction, diabetes type 2, hypertension, hyperlipidemia, history of DE, osteoarthritis, prostate disorder and CKD Stage III, complete heart block, has pacemaker, ischemic cardiomyopathy and gout. PAST SURGICAL HISTORY: Coronary artery bypass graft, cardiac catheterization and stent placement. Hernia repair and pacemaker. Defibrillator in January 2016. SOCIAL HISTORY: Patient is a former smoker. Daily alcohol use. Denied any drugs or IVDU. FAMILY HISTORY: Father had a CVA/TIA, at age 83, had CVA several strokes. Mother had cancer, liver disease and osteoarthritis, history of breast cancer and emphysema. Home medications include: 1. Folic acid. 2. Nitrostat. 3. Ecotrin. 4. Lipitor. 5. [place] 7.5. 6. Zestril. 7. Novolin-N. 8. Hydralazine. 9. Coreg. 10. Imdur. 11. Prilosec. 12. Vitamin E. 13. Glipizide. 14. Plavix. 15. Zyloprim. 16. Torsemide. ALLERGIES: KEFLEX, PENICILLIN AND SULFA. PHYSICAL EXAMINATION: A 66-year-old man lying in bed comfortably. Awake, alert, and oriented times three. Appears to be in no apparent distress. VITALS: Blood pressure is 176/97, pulse is 60, respirations 20, temperature afebrile, pulse ox 97% on 2 L nasal cannula. HEENT: Atraumatic, normocephalic. Neck is supple. No JVD. CVS: S1, S2 heard. No murmurs, no gallop. LUNGS: Bilateral air entry is present. Basilar crackles positive. Nonlabored breathing. No wheezing. ABDOMEN: Soft, obese. Bowel sounds present. CHRISTIAN EDUCATION DIRECTOR: Awake, alert, oriented x3. No focal deficits. EXTREMITIES: Show bilateral lower extremity 2+ edema. Pulses palpable bilaterally. No clubbing or cyanosis. PSYCHIATRIC: Cooperative. LABORATORY DATA: WBC 6.7, hemoglobin 9.4, platelets 125. Sodium 140, potassium 5.8, chloride 112, bicarb is 23, BUN 46, creatinine 2.2. Calcium 10.3, magnesium 2.4, AST is 16, ALT 29, total protein is 6.2. Albumin 3.8. Chest x-ray mild congestive heart failure findings. IMPRESSION: 1. Acute on chronic congestive heart failure with diastolic dysfunction, ejection fraction 55-60%. 2. History of coronary artery disease status post coronary artery bypass graft. 3. History of complete heart block status post AICD. 4. Chronic kidney disease, stage III, creatinine 2.2, which is actually improved from last admission at 2.5. 5. Hyperkalemia. We will hold Lisinopril at this time. 6. Mild hypercalcemia at 10.2. 7. Diabetes type 2 insulin-dependent. 8. Hypertension. 9. Hyperlipidemia. 10. History of chronic obstructive pulmonary disease, stable at this time. 11. Peripheral vascular disease. 12. Secondary pulmonary hypertension secondary to chronic obstructive pulmonary disease. 13. Chronic kidney disease stage III secondary to diabetic nephropathy as well as hypertensive nephrosclerosis. 14. Recent history of gastrointestinal bleed. Hemoglobin is stable at this time. No active symptoms. DISCUSSION AND PLAN: Patient will be continued on IV Lasix and continue the home medications. Hold Lisinopril per hyperkalemia resolves. We will continue to monitor renal function. We will consult cardiology and nephrology at this time and follow up closely. Further recommendations based on clinical course. Prognosis guarded.
[2017-01-25 20:03] LABS: Glucose,Whole Blood 168 mg/dL (75-99)
[2017-01-25] MEDS: FOLIC ACID 1 MG TAB PO SCH (20:24)
[2017-01-25] MEDS: ATORVASTATIN 40 MG TAB PO SCH (20:24)
[2017-01-25] MEDS: hydrALAZINE HCL 25 MG TAB PO SCH (20:24)
[2017-01-25] MEDS: ASPIRIN 81 MG CHEW PO SCH (20:24)
[2017-01-25] MEDS: CARVEDILOL 12.5 MG TAB PO SCH (20:25)
[2017-01-26 06:59] LABS: Glucose,Whole Blood 72 mg/dL (75-99)
[2017-01-26] MEDS: VITAMIN E (DL,TOCOPHERYL ACET) 400 UNIT CAP PO SCH (08:26)
[2017-01-26] MEDS: hydrALAZINE HCL 25 MG TAB PO SCH ×2 (08:27→21:15)
[2017-01-26] MEDS: ASPIRIN 81 MG CHEW PO SCH ×2 (08:27→21:13)
[2017-01-26] MEDS: CLOPIDOGREL 75 MG TAB PO SCH (08:27)
[2017-01-26] MEDS: CARVEDILOL 12.5 MG TAB PO SCH ×2 (08:27→21:14)
[2017-01-26] MEDS: INSULIN NPH 300 UNIT/3 ML VIAL SQ SCH ×2 (08:27→08:30)
[2017-01-26] MEDS: glipiZIDE 10 MG TAB PO SCH ×2 (08:27→17:57)
[2017-01-26] MEDS: ALLOPURINOL 100 MG TAB PO SCH (08:27)
[2017-01-26] MEDS: FUROSEMIDE 10 MG/ML 4 ML VIAL IV SCH ×3 (08:27→23:53)
[2017-01-26] MEDS: ENOXAPARIN 40 MG/0.4 ML SYRINGE SQ SCH (08:59)
[2017-01-26] MEDS ORDERED: LISINOPRIL 20 MG TAB PO SCH (09:00)
[2017-01-26 10:08] LABS: Basophils % (A) 1 %; CHCM 30.1; Eosinophils # (A) 0.2 k/uL (0-0.7); Eosinophils % (A) 2 %; HCT 28.1 % (39.0-53.0); HDW 3.06; Hypochromasia Marked; Luc # (Auto) 0.08; Luc % (Auto) 1; Lymphocytes # (A) 0.3 k/uL (1.0-4.8); Lymphocytes % (A) 5 %; MCH 28.8 pg (25.0-35.0); MCV 90.1 fL (80.0-100.0); Mean Platelet Volume 9.4; Monocytes # (A) 0.3 k/uL (0-1.0); Monocytes % (A) 4 %; Neutrophils # (A) 5.8 k/uL (1.3-7.7); Neutrophils % (A) 88 %; RBC 3.12 m/uL (4.30-5.90); RDW 15.5 % (11.5-15.5); WBC 6.7 k/uL (3.8-10.6); WBC (Perox) 7.03
[2017-01-26 10:27] LABS: Calcium 10.2 mg/dL (8.4-10.2); Potassium 4.9 mmol/L (3.5-5.1)
[2017-01-26] MEDS ORDERED: TEMAZEPAM 7.5 MG CAP PO PRN (10:28)
--- NOTE | 2017-01-26 10:36 | P.NPCON ---
History of Present Illness - Reason for Consult chronic renal failure - History of Present Illness Reason for consultation: Acute kidney injury on chronic kidney disease History of present illness: Patient is a 66-year-old male seen in renal consultation for acute kidney injury on chronic kidney disease. Patient has chronic kidney disease stage III with creatinine of 1.4 in January 2016 but recently it's been near 2. Patient has systolic CHF with ejection fraction of 30%. Vision presented to the hospital with worsening dyspnea and weight gain over the last 2 weeks. Patient states he gained about 10-12 pounds and noticed worsening of his dyspnea as well as lower extremity edema. Patient states he was taking 60 mg of Lasix daily. He denies drinking excessive amounts of water and has been limiting his water intake to less than 64 ounces a day. He denies excessive salt intake. No vomiting or diarrhea. Oral intake is good. Admits to good urine output. No hematuria or dysuria. Denies use of NSAIDs. His creatinine was 2.2 on admission. He is currently maintained on IV Lasix and states his dyspnea as well as edema is improving. Vital signs are stable. General: The patient appeared well nourished and normally developed. HEENT: Head exam is unremarkable. Neck is without jugular venous distension. LUNGS: Lungs are clear to auscultation and percussion. Breath sounds decreased. HEART: Rate and Rhythm are regular. First and second heart sounds normal. No murmurs, rubs or gallops. ABDOMEN: Abdominal exam reveals normal bowel sounds. Non-tender and non- distended. No evidence of peritonitis. EXTREMITITES: Trace edema. Past Medical History Past Medical History: Coronary Artery Disease (CAD), Chest Pain / Angina, Heart Failure, Diabetes Mellitus, Hyperlipidemia, Hypertension, Myocardial Infarction ([place]), Osteoarthritis (OA), Prostate Disorder, Renal Disease Additional Past Medical History / Comment(s): CHB (has pacemaker), ischemic cardiomyopathy, pt is to go to [facility] next week for laser lead extration or RV and placement of BiV ICD, IDDM type II, R elbow bursitis/cellulitis, gout, Last Myocardial Infarction Date:: 10/05/15 History of Any Multi-Drug Resistant Organisms: None Reported Past Surgical History: Coronary Bypass/CABG, Heart Catheterization, Heart Catheterization With Stent, Hernia Repair, Pacemaker Additional Past Surgical History / Comment(s): 3/22/16 upper extremity venogram , 2011 triple bypass at [facility], 2006 PCI with stent cx, 09/2015 PCI with stent to LAD, 10/2015 ccath treat medically, dual chamber pacemaker initial insertion 2004 and replaced in 2011, umbillical hernia repair, several nose sx d/t 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 Defibriliator in january 2016 Past Anesthesia/Blood Transfusion Reactions: No Reported Reaction Date of Last Stent Placement:: 09/2015 Type of Cardiac Device: Permanent Pacemaker Device Placement Date:: 2011 Past Psychological History: No Psychological Hx Reported Additional Psychological History / Comment(s): Pt states he resides with [facility]un[place]. He is independent. He uses no assistive device. He drives. He has no home care use. Smoking Status: Former smoker - Past Family History Father Family Medical History: CVA/TIA Additional Family Medical History / Comment(s): age 83 had several strokes Mother Family Medical History: Cancer, Liver Disease, Osteoarthritis (OA) Additional Family Medical History / Comment(s): mom is still alive at age 91, hx breast cancer, emphysema (pt stated she never smoked) Medications and Allergies Home Medications Medication Instructions Recorded Confirmed Type Folic Acid 0.4 mg PO HS 09/10/15 01/25/17 History Nitroglycerin Sl Tabs [Nitrostat] 0.4 mg SUBLINGUAL Q5M PRN 09/10/15 01/25/17 History Aspirin EC [Ecotrin Low Dose] 81 mg PO BID 01/22/16 01/25/17 History Atorvastatin [Lipitor] 40 mg PO HS 07/05/16 01/25/17 History HYDROcodone/APAP 7.5-325MG [[place] 1 tab PO Q6HR PRN 07/05/16 01/25/17 History 7.5-325] Lisinopril [Zestril] 20 mg PO DAILY 08/04/16 01/25/17 History Insulin NPH Human Isophane 6 unit SQ DAILY 01/06/17 01/25/17 History [Novolin N] hydrALAZINE HCL [Apresoline] 25 mg PO BID 01/06/17 01/25/17 History Carvedilol [Coreg*] 12.5 mg PO HS 01/25/17 01/25/17 History Carvedilol [Coreg*] 25 mg PO DAILY 01/25/17 01/25/17 History Isosorbide Mononitrate ER [Imdur] 30 mg PO DAILY PRN 01/25/17 01/25/17 History Omeprazole [PriLOSEC] 40 mg PO DAILY PRN 01/25/17 01/25/17 History Vitamin E (Dl,Tocopheryl Acet) 400 unit PO DAILY 01/25/17 01/25/17 History [Vitamin E] glipiZIDE [Glucotrol] 10 mg PO BID 01/25/17 01/25/17 History Allergies Allergy/AdvReac Type Severity Reaction Status Date / Time cephalexin monohydrate AdvReac Unknown Verified 01/25/17 12:41 [From Keflex] Penicillins AdvReac Nausea & Verified 01/25/17 12:41 Vomiting Sulfa (Sulfonamide AdvReac Nausea & Verified 01/25/17 12:41 Antibiotics) Vomiting Physical Exam Vitals: Vital Signs Temp Pulse Pulse Resp BP BP BP 01/26/17 08:00 60 18 01/26/17 07:00 97.4 F L 60 18 159/71 01/25/17 23:29 69 16 01/25/17 23:00 97.9 F 69 16 153/70 01/25/17 16:00 98.3 F 18 L 18 157/77 01/25/17 14:28 68 20 167/97 01/25/17 14:05 22 01/25/17 14:00 60 20 176/97 01/25/17 12:47 64 24 175/72 01/25/17 12:18 97.7 F 63 20 196/76 Pulse Ox 01/26/17 08:00 01/26/17 07:00 99 01/25/17 23:29 01/25/17 23:00 93 L 01/25/17 16:00 93 L 01/25/17 14:28 96 01/25/17 14:05 01/25/17 14:00 96 01/25/17 12:47 95 01/25/17 12:18 90 L Intake and Output 01/25/17 01/26/17 01/26/17 22:59 06:59 14:59 Intake Total 240 240 Output Total 300 Balance -60 240 Intake: Oral 240 240 Output: Urine 300 Other: Voiding Method Toilet Weight 81.647 kg 88.5 kg 88.5 kg Patient Weight 01/27/17 06:59 Weight 88.5 kg Results - Lab Results Most recent lab results Calcium 10.3 mg/dL (8.4-10.2) H 01/25/17 12:45 Magnesium 2.4 mg/dL (1.6-2.3) H 01/25/17 12:45 01/26/17 09:53 01/25/17 12:45 Assessment and Plan Plan: Assessment: #1. Nonoliguric acute kidney injury secondary to cardiorenal syndrome. Creatinine 2.21 admission. #2. Chronic kidney disease stage III secondary to cardiorenal syndrome and diabetic kidney disease with baseline creatinine near 2. #3. Volume overload. Improving. #4. Systolic CHF with ejection fraction of 30%. #5. Anemia. Rule out iron deficiency. #6. Insulin-dependent diabetes mellitus. Plan: Continue Lasix 40 mg IV every 8 hours. Daily weights. Check iron studies. Avoid nephrotoxic agents and hypotensive episodes. Repeat electrolytes in the morning. Thank you for the consultation. I will continue to follow the patient with you during his hospital stay.
[2017-01-26] MEDS: POLYETHYLENE GLYCOL 3350 17 GM POWD.PACK PO SCH (10:49)
--- NOTE | 2017-01-26 11:36 | P.CRDCN ---
History of Present Illness Consult date: 01/26/17 Consult reason: congestive heart failure History of present illness: 66-year-old gentleman with history of coronary artery disease status post CABG congestive heart failure chronic renal failure recent GI bleed who presented to Hospital with shortness of breath leg edema and abdominal distention. He was found to be in acute exacerbation of chronic diastolic heart failure and treated with diuretics with significant improvement in his symptoms. Patient was in the hospital recently at that time he was changed from Lasix to Demadex and apparently he didn't know that he could adjust the doses at home hence developed congestive heart failure. At the time of my evaluation this morning he is feeling better there is no leg edema and shortness of breath has resolved. I reviewed prior admissions reports consult status Review of Systems Constitutional: Denies chills. Denies fever. Eyes: Denies blurred vision. Denies pain. Ears, nose, mouth and throat: Denies headache. Denies sore throat. Cardiovascular: Denies chest pain. has shortness of breath. Respiratory: Denies cough. Gastrointestinal: Denies abdominal pain. Denies diarrhea. Denies nausea. Denies vomiting. Musculoskeletal: Denies myalgias. Joint pains Integumentary: Denies pruritus. Denies rash. Neurological: Denies numbness. Denies weakness. Psychiatric: Denies anxiety. Denies depression. Endocrine: Denies fatigue. Denies weight change. Genitourinary: Denies burning, hematuria, frequency of urination. Hematological: No anemia or excess bleeding. Past Medical History Past Medical History: Coronary Artery Disease (CAD), Chest Pain / Angina, Heart Failure, Diabetes Mellitus, Hyperlipidemia, Hypertension, Myocardial Infarction (PR), Osteoarthritis (OA), Prostate Disorder, Renal Disease Additional Past Medical History / Comment(s): CHB (has pacemaker), ischemic cardiomyopathy, pt is to go to [facility] next week for laser lead extration or RV and placement of BiV ICD, IDDM type II, R elbow bursitis/cellulitis, gout, Last Myocardial Infarction Date:: 10/05/15 History of Any Multi-Drug Resistant Organisms: None Reported Past Surgical History: Coronary Bypass/CABG, Heart Catheterization, Heart Catheterization With Stent, Hernia Repair, Pacemaker Additional Past Surgical History / Comment(s): 10/22/15 upper extremity venogram , 2011 triple bypass at [facility], 2006 PCI with stent cx, 09/2015 PCI with stent to LAD, 10/2015 ccath treat medically, dual chamber pacemaker initial insertion 2004 and replaced in 2011, umbillical hernia repair, several nose sx d/t 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 Defibriliator in january 2016 Past Anesthesia/Blood Transfusion Reactions: No Reported Reaction Date of Last Stent Placement:: 09/2015 Type of Cardiac Device: Permanent Pacemaker Device Placement Date:: 2011 Past Psychological History: No Psychological Hx Reported Additional Psychological History / Comment(s): Pt states he resides with Shaunna. He is independent. He uses no assistive device. He drives. He has no home care use. Smoking Status: Former smoker - Past Family History Father Family Medical History: CVA/TIA Additional Family Medical History / Comment(s): age 83 had several strokes Mother Family Medical History: Cancer, Liver Disease, Osteoarthritis (OA) Additional Family Medical History / Comment(s): mom is still alive at age 91, hx breast cancer, emphysema (pt stated she never smoked) Medications and Allergies Home Medications Medication Instructions Recorded Confirmed Type Folic Acid 0.4 mg PO HS 09/10/15 01/25/17 History Nitroglycerin Sl Tabs [Nitrostat] 0.4 mg SUBLINGUAL Q5M PRN 09/10/15 01/25/17 History Aspirin EC [Ecotrin Low Dose] 81 mg PO BID 01/22/16 01/25/17 History Atorvastatin [Lipitor] 40 mg PO HS 07/05/16 01/25/17 History HYDROcodone/APAP 7.5-325MG [[place] 1 tab PO Q6HR PRN 07/05/16 01/25/17 History 7.5-325] Lisinopril [Zestril] 20 mg PO DAILY 08/04/16 01/25/17 History Insulin NPH Human Isophane 6 unit SQ DAILY 01/06/17 01/25/17 History [Novolin N] hydrALAZINE HCL [Apresoline] 25 mg PO BID 01/06/17 01/25/17 History Carvedilol [Coreg*] 12.5 mg PO HS 01/25/17 01/25/17 History Carvedilol [Coreg*] 25 mg PO DAILY 01/25/17 01/25/17 History Isosorbide Mononitrate ER [Imdur] 30 mg PO DAILY PRN 01/25/17 01/25/17 History Omeprazole [PriLOSEC] 40 mg PO DAILY PRN 01/25/17 01/25/17 History Vitamin E (Dl,Tocopheryl Acet) 400 unit PO DAILY 01/25/17 01/25/17 History [Vitamin E] glipiZIDE [Glucotrol] 10 mg PO BID 01/25/17 01/25/17 History Allergies Allergy/AdvReac Type Severity Reaction Status Date / Time cephalexin monohydrate AdvReac Unknown Verified 01/25/17 12:41 [From Keflex] Penicillins AdvReac Nausea & Verified 01/25/17 12:41 Vomiting Sulfa (Sulfonamide AdvReac Nausea & Verified 01/25/17 12:41 Antibiotics) Vomiting Physical Exam Vitals: Vital Signs Temp Pulse Pulse Resp BP BP BP 01/26/17 08:00 60 18 01/26/17 07:00 97.4 F L 60 18 159/71 01/25/17 23:29 69 16 01/25/17 23:00 97.9 F 69 16 153/70 01/25/17 16:00 98.3 F 18 L 18 157/77 01/25/17 14:28 68 20 167/97 01/25/17 14:05 22 01/25/17 14:00 60 20 176/97 01/25/17 12:47 64 24 175/72 01/25/17 12:18 97.7 F 63 20 196/76 Pulse Ox 01/26/17 08:00 01/26/17 07:00 99 01/25/17 23:29 01/25/17 23:00 93 L 01/25/17 16:00 93 L 01/25/17 14:28 96 01/25/17 14:05 01/25/17 14:00 96 01/25/17 12:47 95 01/25/17 12:18 90 L Intake and Output 01/25/17 01/26/17 01/26/17 22:59 06:59 14:59 Intake Total 240 240 Output Total 300 Balance -60 240 Intake: Oral 240 240 Output: Urine 300 Other: Voiding Method Toilet Weight 81.647 kg 88.5 kg 88.5 kg Patient Weight 01/27/17 06:59 Weight 88.5 kg General: The patient is awake and alert, in no distress, and does not appear acutely ill. Skin: Skin is warm and dry and no rashes or lesions are noted. Eye: Pupils are equal, round and reactive to light, extra-ocular movements are intact; there is normal conjunctiva bilaterally. Ears, nose, mouth and throat: There are moist mucous membranes and no oral lesions. Neck: The neck is supple, there is no tenderness or JVD. Cardiovascular: There is a regular rate and rhythm. Systolic murmur at the apex Respiratory: Lungs are clear to auscultation, respirations are non-labored, breath sounds are equal. Gastrointestinal: Soft, non-distended, non-tender abdomen without masses or organomegaly noted. There is no rebound or guarding present. Bowel sounds are unremarkable. Back: There is no tenderness to palpation in the midline. There is no obvious deformity. Musculoskeletal: Normal ROM, no tenderness, There is no pedal edema. There is no calf tenderness or swelling. Extremities: Trace edema Vascular: Femoral pulse is normal. Posterior tibial pulses are normal .Dorsalis pedis is palpable. Neurological: CN II-XII intact. There are no obvious motor or sensory deficits. Speech is normal. Psychiatric: Cooperative, appropriate mood & affect, normal judgment. Results 01/26/17 09:53 01/26/17 09:53 Cardiac Enzymes 01/25/17 01/25/17 01/25/17 Range/Units 12:45 12:45 19:26 AST 16 L (17-59) U/L CK-MB (CK-2) 1.8 (0.0-2.4) ng/mL Troponin I 0.017 0.015 (0.000-0.034) ng/mL 01/26/17 Range/Units 00:48 AST (17-59) U/L CK-MB (CK-2) (0.0-2.4) ng/mL Troponin I 0.016 (0.000-0.034) ng/mL Coagulation 01/25/17 Range/Units 12:45 PT 10.9 (9.0-12.0) sec APTT 21.5 L (22.0-30.0) sec CBC 01/25/17 01/26/17 Range/Units 12:45 09:53 WBC 6.7 6.7 (3.8-10.6) k/uL RBC 3.43 L 3.12 L (4.30-5.90) m/uL Hgb 9.4 L 9.0 L (13.0-17.5) gm/dL Hct 31.7 L 28.1 L (39.0-53.0) % Plt Count 125 L 114 L (150-450) k/uL Comprehensive Metabolic Panel 01/25/17 01/26/17 Range/Units 12:45 09:53 Sodium 145 145 (137-145) mmol/L Potassium 5.8 H 4.9 (3.5-5.1) mmol/L Chloride 112 H 112 H (98-107) mmol/L Carbon Dioxide 23 22 (22-30) mmol/L BUN 46 H 46 H (9-20) mg/dL Creatinine 2.20 H 2.10 H (0.66-1.25) mg/dL Glucose 151 H 157 H (74-99) mg/dL Calcium 10.3 H 10.2 (8.4-10.2) mg/dL AST 16 L (17-59) U/L ALT 29 (21-72) U/L Alkaline Phosphatase 115 (38-126) U/L Total Protein 6.2 L (6.3-8.2) g/dL Albumin 3.8 (3.5-5.0) g/dL Current Medications Generic Name Dose Route Start Last Admin Trade Name Freq PRN Reason Stop Dose Admin Hydrocodone Bitart/Acetaminophen 1 each 01/25/17 14:52 [place] 7.5-325 PO Q6HR PRN Pain Allopurinol 100 mg 01/26/17 09:00 01/26/17 08:27 Zyloprim PO 100 mg DAILY AGUSTIN Administration Aspirin 81 mg 01/25/17 21:00 01/26/17 08:27 Aspirin PO 81 mg BID AGUSTIN Administration Atorvastatin Calcium 40 mg 01/25/17 21:00 01/25/17 20:24 Lipitor PO 40 mg HS AGUSTIN Administration Carvedilol 12.5 mg 01/25/17 21:00 01/25/17 20:25 Coreg PO 12.5 mg HS AGUSTIN Administration Carvedilol 25 mg 01/26/17 07:30 01/26/17 08:27 Coreg PO 25 mg W/BRKFST AGUSTIN Administration Clopidogrel Bisulfate 75 mg 01/26/17 09:00 01/26/17 08:27 Plavix PO 75 mg DAILY AGUSTIN Administration Enoxaparin Sodium 40 mg 01/26/17 09:00 01/26/17 08:59 Lovenox SQ 40 mg DAILY AGUSTIN Administration Folic Acid 0.5 mg 01/25/17 21:00 01/25/17 20:24 Folic Acid PO 0.5 mg HS AGUSTIN Administration Furosemide 40 mg 01/25/17 16:00 01/26/17 08:27 Lasix IV 40 mg Q8HR AGUSTIN Administration Glipizide 10 mg 01/25/17 17:30 01/26/17 08:27 Glucotrol PO 10 mg AC-BID AGUSTIN Administration Hydralazine HCl 25 mg 01/25/17 21:00 01/26/17 08:27 Apresoline PO 25 mg BID AGUSTIN Administration Insulin Human NPH 6 unit 01/26/17 07:30 01/26/17 08:30 Humulin N SQ Not Given AC-BRKFST AGUSTIN Isosorbide Mononitrate 30 mg 01/25/17 14:52 Imdur PO DAILY PRN CHEST PAIN Nitroglycerin 0.4 mg 01/25/17 14:52 Nitrostat SUBLINGUAL Q5M PRN Chest Pain Pantoprazole Sodium 40 mg 01/25/17 14:52 Protonix PO DAILY PRN ACID REFLUX Polyethylene Glycol 17 gm 01/26/17 10:45 01/26/17 10:49 Miralax PO 17 gm DAILY AGUSTIN Administration Temazepam 7.5 mg 01/26/17 10:28 Restoril PO HS PRN Insomnia Vitamin E 400 unit 01/26/17 09:00 01/26/17 08:26 Vitamin E PO 400 unit DAILY AGUSTIN Administration Intake and Output 01/25/17 01/26/17 01/26/17 22:59 06:59 14:59 Intake Total 240 240 Output Total 300 Balance -60 240 Intake: Oral 240 240 Output: Urine 300 Other: Voiding Method Toilet Weight 81.647 kg 88.5 kg 88.5 kg Patient Weight 01/27/17 06:59 Weight 88.5 kg 01/26/17 09:53 01/26/17 09:53 EKG Interpretations (text) Paced rhythm Assessment and Plan Plan: Acute exacerbation of chronic diastolic heart failure CAD status post CABG History of permanent pacemaker History of hypertension Patient is currently in IV diuretics doing well no longer in congestive heart failure can be switched to by mouth Lasix and discharged home. Patient is on all evidence based therapies for congestive heart failure at this time.
[2017-01-26 11:38] LABS: % Iron Saturation 14.6 % (20-50)
[2017-01-26 11:48] LABS: Glucose,Whole Blood 218 mg/dL (75-99)
[2017-01-26 16:53] LABS: Glucose,Whole Blood 166 mg/dL (75-99)
[2017-01-26 20:16] LABS: Glucose,Whole Blood 152 mg/dL (75-99)
[2017-01-26] MEDS: ATORVASTATIN 40 MG TAB PO SCH (21:13)
[2017-01-26] MEDS: FOLIC ACID 1 MG TAB PO SCH (21:14)
[2017-01-26] MEDS: KETOROLAC 0.5% OPHTH DROPS 3 ML BTL LEFT EYE SCH (21:14)
[2017-01-27 07:10] LABS: Glucose,Whole Blood 76 mg/dL (75-99)
[2017-01-27] MEDS ORDERED: FERROUS SULFATE 325 MG TAB PO SCH (07:30)
[2017-01-27 07:37] LABS: Magnesium 1.9 mg/dL (1.6-2.3)
[2017-01-27] MEDS: POLYETHYLENE GLYCOL 3350 17 GM POWD.PACK PO SCH (07:43)
[2017-01-27] MEDS: CARVEDILOL 12.5 MG TAB PO SCH (07:43)
[2017-01-27] MEDS: ASPIRIN 81 MG CHEW PO SCH (07:45)
[2017-01-27] MEDS: glipiZIDE 10 MG TAB PO SCH (07:45)
[2017-01-27] MEDS: FUROSEMIDE 10 MG/ML 4 ML VIAL IV SCH (07:45)
[2017-01-27] MEDS: ALLOPURINOL 100 MG TAB PO SCH (07:45)
[2017-01-27] MEDS: CLOPIDOGREL 75 MG TAB PO SCH (07:46)
[2017-01-27] MEDS: ENOXAPARIN 40 MG/0.4 ML SYRINGE SQ SCH (07:46)
[2017-01-27] MEDS: hydrALAZINE HCL 25 MG TAB PO SCH (07:46)
[2017-01-27] MEDS: VITAMIN E (DL,TOCOPHERYL ACET) 400 UNIT CAP PO SCH (07:47)
[2017-01-27] MEDS: KETOROLAC 0.5% OPHTH DROPS 3 ML BTL LEFT EYE SCH (07:47)
[2017-01-27] MEDS: INSULIN NPH 300 UNIT/3 ML VIAL SQ SCH (07:48)
[2017-01-27 08:01] VITALS: BP 177/78; PULSE 64; RESP 20; TEMP 97.9
[2017-01-27] MEDS ORDERED: TORSEMIDE 20 MG TAB PO SCH (10:00)
--- NOTE | 2017-01-27 10:03 | P.PN ---
Subjective Patient is seen in follow-up for chronic kidney disease. Patient has chronic kidney disease stage III secondary to diabetic kidney disease and cardiorenal syndrome with baseline creatinine near 2. Creatinine today is at 2.24. Patient has systolic CHF with ejection fraction of 30%. Patient presented with dyspnea. She is not improved. Edema is improved. Denies chest pain or shortness of breath. No vomiting or diarrhea. Vital signs are stable. General: The patient appeared well nourished and normally developed. HEENT: Head exam is unremarkable. Neck is without jugular venous distension. LUNGS: Lungs are clear to auscultation and percussion. Breath sounds decreased. HEART: Rate and Rhythm are regular. First and second heart sounds normal. No murmurs, rubs or gallops. ABDOMEN: Abdominal exam reveals normal bowel sounds. Non-tender and non- distended. No evidence of peritonitis. EXTREMITITES: No clubbing, cyanosis, or edema. Objective - Vital Signs Vital signs: Vital Signs Temp 97.9 F 01/27/17 07:00 Pulse 64 01/27/17 08:00 Resp 20 01/27/17 08:00 BP 177/78 01/27/17 07:00 Pulse Ox 93 L 01/27/17 07:00 Intake & Output 01/26/17 01/27/17 01/27/17 18:59 06:59 18:59 Intake Total 480 440 Output Total 1003 200 Balance -523 240 Weight 88.5 kg 86.5 kg Intake: Oral 480 440 Output: Urine 1003 200 Other: Voiding Method Toilet Toilet Toilet Urinal - Labs CBC & Chem 7: 01/26/17 09:53 01/27/17 06:32 Labs: Abnormal Lab Results - Last 24 Hours (Table) 01/26/17 01/26/17 01/26/17 Range/Units 09:53 09:53 09:53 RBC 3.12 L (4.30-5.90) m/uL Hgb 9.0 L (13.0-17.5) gm/dL Hct 28.1 L (39.0-53.0) % Plt Count 114 L (150-450) k/uL Lymphocytes # 0.3 L (1.0-4.8) k/uL Chloride 112 H (98-107) mmol/L BUN 46 H (9-20) mg/dL Creatinine 2.10 H (0.66-1.25) mg/dL Glucose 157 H (74-99) mg/dL POC Glucose (mg/dL) (75-99) mg/dL Calcium (8.4-10.2) mg/dL Iron 47 L (49-181) ug/dL % Saturation 14.6 L (20-50) % 01/26/17 01/26/17 01/26/17 Range/Units 11:45 16:52 20:14 RBC (4.30-5.90) m/uL Hgb (13.0-17.5) gm/dL Hct (39.0-53.0) % Plt Count (150-450) k/uL Lymphocytes # (1.0-4.8) k/uL Chloride (98-107) mmol/L BUN (9-20) mg/dL Creatinine (0.66-1.25) mg/dL Glucose (74-99) mg/dL POC Glucose (mg/dL) 218 H 166 H 152 H (75-99) mg/dL Calcium (8.4-10.2) mg/dL Iron (49-181) ug/dL % Saturation (20-50) % 01/27/17 Range/Units 06:32 RBC (4.30-5.90) m/uL Hgb (13.0-17.5) gm/dL Hct (39.0-53.0) % Plt Count (150-450) k/uL Lymphocytes # (1.0-4.8) k/uL Chloride 111 H (98-107) mmol/L BUN 47 H (9-20) mg/dL Creatinine 2.24 H (0.66-1.25) mg/dL Glucose 68 L (74-99) mg/dL POC Glucose (mg/dL) (75-99) mg/dL Calcium 11.0 H (8.4-10.2) mg/dL Iron (49-181) ug/dL % Saturation (20-50) % Microbiology - Last 24 Hours (Table) 01/25/17 12:45 Blood Culture - Preliminary Blood No Growth after 24 hours Assessment and Plan Plan: Assessment: #1. Nonoliguric acute kidney injury secondary to cardiorenal syndrome. Creatinine 2.24 admission. #2. Chronic kidney disease stage III secondary to cardiorenal syndrome and diabetic kidney disease with baseline creatinine near 2. #3. Volume overload. Improved. #4. Systolic CHF with ejection fraction of 30%. #5. Anemia. Iron deficiency present. #6. Insulin-dependent diabetes mellitus. Plan: Discontinue IV Lasix. Resume Demadex 20 mg orally once daily. Ferrlicit 125 mg IV once today. Avoid nephrotoxic agents and hypotensive episodes. Stable to be discharged home from nephrology standpoint and to follow-up as an outpatient in the next 2 weeks. I advised him to weigh himself daily and to increase the dose of Demadex to twice a day if notices more than 2-3 pound weight gain. I also advised him to follow a 15 pounds fluid restricted and a low-salt diet.
[2017-01-28] MEDS ORDERED: SODIUM FERRIC GLUCONAT-SUCROSE 125 MG in SODIUM CHLORIDE 0.9% 100 ML IVPB SCH (09:00)
--- NOTE | 2017-01-29 10:54 | PN ---
DATE OF SERVICE: 01/26/2017 INTERVAL HISTORY: Mr. Magdaleno is a 66-year-old male with known history of hypertension and diabetes mellitus type 2, hyperlipidemia and CHF with diastolic dysfunction, ejection fraction 55% to 60%, was recently discharged from the hospital on 01/11/2017, came to the hospital with complaints of increased shortness of breath for the past 4 to 5 days. Patient recently had change in medication with discontinuation of Lasix and change to torsemide. The patient was ( ). Patient was found to have bilateral lower extremity swelling and lung congestion. Patient was currently being continued on IV Lasix ( ) mg q.8 hourly. The patient did improve symptomatically. Leg swelling is much improved. Patient is being followed by Nephrology and Cardiology. Anticipate discharge in the next 24 hours with more clinical improvement and diuresis. REVIEW OF SYSTEMS: CONSTITUTIONAL: No fever, no chills. RESPIRATORY: No cough or sputum production. CARDIOVASCULAR: No chest pain or shortness of breath. ABDOMEN: No nausea, vomiting, or abdominal pain. GENITOURINARY: Negative. ENDOCRINE: Negative. PSYCHIATRY: Negative. SKIN: Negative. MUSCULOSKELETAL: Negative. All 14-point review of system negative ( ). PHYSICAL EXAMINATION: A 66-year-old male lying in bed comfortably, awake, alert , oriented x3. Patient is in no apparent distress. VITALS: Blood pressure is 155/70. Pulse is 63. Respirations 16. Temperature afebrile. Pulse ox 93% on 2 L nasal cannula. HEENT: Atraumatic, normocephalic. NECK: Supple. No JVD. CVS EXAM; S1 and S2 heard. No murmurs, no gallops. LUNGS: Bilateral air entry is present. No wheezing. No crackles. Nonlabored breathing. ABDOMEN: Soft, nontender. Bowel sounds present. [employer] HE[employer]ACH: Awake, alert, oriented x3. No focal deficits. EXTREMITIES: Bilateral lower extremities 1+ edema. Pulses are palpable bilaterally. No clubbing or cyanosis. PSYCHIATRIC: Cooperative. LABORATORY DATA: WBC 6.7, hemoglobin 9.7, platelets 114. Sodium 145, potassium 4.9, chloride 112, ( ) BUN 46, creatinine 2.10. Iron profile showed low iron with low percent saturation and low normal ferritin level. IMPRESSION: 1. Acute on chronic congestive heart failure with diastolic dysfunction. Ejection fraction 55% to 60%. 2. History of coronary artery disease, status post coronary artery bypass graft. 3. History of complete heart block, status post AICD. 4. Acute on chronic kidney disease, stage III, creatinine level improved to 2.1 today. 5. Hyperkalemia, resolved now. 6. ( ) insulin dependence. 7. Hypertension. 8. Hyperlipidemia. 9. History of chronic obstructive pulmonary disease, not in exacerbation. 10. Peripheral vascular disease. 11. Secondary pulmonary hypertension. secondary to chronic obstructive pulmonary disease. 12. Chronic kidney disease stage III due to diabetes nephropathy and hypertensive nephrosclerosis. 13. Recent history of gastrointestinal bleed, hemoglobin is stable at this time , possibly iron deficiency and was started on ( ). 14. Will continue the IV Lasix q.8 hourly 40 mg ( ) upon discharge. ( ). 15. Continue the current management and follow up closely. Anticipate discharge in 24 hours if more clinical improvement. MTDD
== END 2017-01-27 12:15 | disposition home or self-care (01) | DRG 291 ==
LOC: EC 12:14 → 5MS5E 13:32 → OBSVTOIN 01-26 15:06
PROVIDERS: ADMIT Hospitalist; ATTEND Hospitalist
DX: I13.0 Hypertensive heart and chronic kidney disease with heart failure and stage 1 through stage 4 chronic kidney disease, or unspecified chronic kidney disease (principal); I50.43 Acute on chronic combined systolic (congestive) and diastolic (congestive) heart failure; I44.2 Atrioventricular block, complete; N17.9 Acute kidney failure, unspecified; E11.21 Type 2 diabetes mellitus with diabetic nephropathy; E83.52 Hypercalcemia; I27.2 Other secondary pulmonary hypertension; E11.51 Type 2 diabetes mellitus with diabetic peripheral angiopathy without gangrene; E78.5 Hyperlipidemia, unspecified; J44.9 Chronic obstructive pulmonary disease, unspecified; E87.5 Hyperkalemia; Z95.1 Presence of aortocoronary bypass graft; N18.3 Chronic kidney disease, stage 3 (moderate); I25.10 Atherosclerotic heart disease of native coronary artery without angina pectoris; E11.22 Type 2 diabetes mellitus with diabetic chronic kidney disease; I25.2 Old myocardial infarction; I25.5 Ischemic cardiomyopathy; K57.30 Diverticulosis of large intestine without perforation or abscess without bleeding; M10.9 Gout, unspecified; M19.90 Unspecified osteoarthritis, unspecified site; D50.9 Iron deficiency anemia, unspecified; N42.9 Disorder of prostate, unspecified; Z88.1 Allergy status to other antibiotic agents; Z88.0 Allergy status to penicillin; Z88.2 Allergy status to sulfonamides; Z87.81 Personal history of (healed) traumatic fracture; Z86.19 Personal history of other infectious and parasitic diseases; Z79.4 Long term (current) use of insulin; Z87.39 Personal history of other diseases of the musculoskeletal system and connective tissue; Z87.19 Personal history of other diseases of the digestive system; Z86.010 Personal history of colon polyps; Z79.82 Long term (current) use of aspirin; Z79.891 Long term (current) use of opiate analgesic; Z95.5 Presence of coronary angioplasty implant and graft; Z80.3 Family history of malignant neoplasm of breast; Z80.0 Family history of malignant neoplasm of digestive organs; Z95.810 Presence of automatic (implantable) cardiac defibrillator; Z79.899 Other long term (current) drug therapy; Z79.02 Long term (current) use of antithrombotics/antiplatelets; Z82.5 Family history of asthma and other chronic lower respiratory diseases; Z82.3 Family history of stroke; Z87.891 Personal history of nicotine dependence; Z71.3 Dietary counseling and surveillance
CPT/HCPCS: 36415; 71020; 80048; 80053; 82550; 82553; 82728; 83540; 83550; 83735; 83880; 84484; 85025; 85610; 85730; 87040; 93005; 99285

== ENCOUNTER 2017-05-11 00:08 | Inpatient (IN) | payer MEDICARE, BC ==
--- NOTE | 2017-05-11 00:44 | ED ---
SOB HPI - General Chief Complaint: Shortness of Breath Stated Complaint: Poss Pneumonia-Seen @ [facility] today-Cardiac Pt Time Seen by Provider: 05/11/17 00:25 Source: patient, family Mode of arrival: wheelchair Limitations: no limitations - History of Present Illness Initial Comments: This patient is a 67-year-old man with history of CHF who presents to be evaluated for cough and shortness of breath. The patient states that he is not been feeling well for about 4 days now. He states the symptoms mainly involve orthopnea, though he has also been having a little bit of cough and occasional dyspnea at rest. The patient states that he had gone to [facility] where he had seen his nurse practitioner and he had some tests done. He received a call back telling him that he may have a small pneumonia and that there were also some lab abnormalities, and it was recommended that he go to [facility]. The patient states that he came here instead in case he does require admission. MD Complaint: shortness of breath, cough Onset/Timin -: days(s) Severity: mild Quality: dull Consistency: constant Improves With: nothing Worsens With: nothing Known History Of: congestive heart failure Associated Symptoms: pain with inspiration, cough, orthopnea Treatments Prior to Arrival: diuretics - Related Data Home Medications Medication Instructions Recorded Confirmed Folic Acid 0.4 mg PO HS 09/10/15 01/25/17 Nitroglycerin Sl Tabs [Nitrostat] 0.4 mg SUBLINGUAL Q5M PRN 09/10/15 01/25/17 Aspirin EC [Ecotrin Low Dose] 81 mg PO BID 01/22/16 01/25/17 Atorvastatin [Lipitor] 40 mg PO HS 07/05/16 01/25/17 HYDROcodone/APAP 7.5-325MG [[place] 1 tab PO Q6HR PRN 07/05/16 01/25/17 7.5-325] Lisinopril [Zestril] 20 mg PO DAILY 08/04/16 01/25/17 Insulin NPH Human Isophane 6 unit SQ DAILY 01/06/17 01/25/17 [Novolin N] hydrALAZINE HCL [Apresoline] 25 mg PO BID 01/06/17 01/25/17 Carvedilol [Coreg*] 12.5 mg PO HS 01/25/17 01/25/17 Carvedilol [Coreg*] 25 mg PO DAILY 01/25/17 01/25/17 Isosorbide Mononitrate ER [Imdur] 30 mg PO DAILY PRN 01/25/17 01/25/17 Omeprazole [PriLOSEC] 40 mg PO DAILY PRN 01/25/17 01/25/17 Vitamin E (Dl,Tocopheryl Acet) 400 unit PO DAILY 01/25/17 01/25/17 [Vitamin E] glipiZIDE [Glucotrol] 10 mg PO BID 01/25/17 01/25/17 Previous Rx's Medication Instructions Recorded Clopidogrel [Plavix] 75 mg PO DAILY #30 tab 09/13/15 Allopurinol [Zyloprim] 100 mg PO DAILY #30 tab 07/08/16 Ferrous Sulfate [Iron (65 MG 325 mg PO BID-W/MEALS #60 tab 01/27/17 Elemental)] Torsemide [Demadex] 20 mg PO DAILY #30 tab 01/27/17 Allergies Allergy/AdvReac Type Severity Reaction Status Date / Time cephalexin monohydrate AdvReac Unknown Verified 05/11/17 00:19 [From Keflex] Penicillins AdvReac Nausea & Verified 05/11/17 00:19 Vomiting Sulfa (Sulfonamide AdvReac Nausea & Verified 05/11/17 00:19 Antibiotics) Vomiting Review of Systems ROS Statement: Those systems with pertinent positive or pertinent negative responses have been documented in the HPI. ROS Other: All systems not noted in ROS Statement are negative. Constitutional: Reports: fever, chills Respiratory: Reports: cough, dyspnea. Denies: hemoptysis Cardiovascular: Reports: chest pain, dyspnea on exertion, orthopnea, edema. Denies: palpitations, syncope Gastrointestinal: Denies: abdominal pain, nausea, vomiting, diarrhea Genitourinary: Denies: dysuria, hematuria Skin: Denies: rash Neurological: Denies: headache, weakness, numbness Past Medical History Past Medical History: Coronary Artery Disease (CAD), Chest Pain / Angina, Heart Failure, Diabetes Mellitus, Hyperlipidemia, Hypertension, Myocardial Infarction ([place]), Osteoarthritis (OA), Prostate Disorder, Renal Disease Additional Past Medical History / Comment(s): CHB (has pacemaker), ischemic cardiomyopathy, pt is to go to [facility] next week for laser lead extration or RV and placement of BiV ICD, IDDM type II, R elbow bursitis/cellulitis, gout, Last Myocardial Infarction Date:: 10/05/15 History of Any Multi-Drug Resistant Organisms: None Reported Past Surgical History: Coronary Bypass/CABG, Heart Catheterization, Heart Catheterization With Stent, Hernia Repair, Pacemaker Additional Past Surgical History / Comment(s): 10/22/15 upper extremity venogram , 2011 triple bypass at [facility], 2006 PCI with stent cx, 09/2015 PCI with stent to LAD, 10/2015 ccath treat medically, dual chamber pacemaker initial insertion 2004 and replaced in 2011, umbillical hernia repair, several nose sx d/t 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 Defibriliator in january 2016 Past Anesthesia/Blood Transfusion Reactions: No Reported Reaction Date of Last Stent Placement:: 09/2015 Type of Cardiac Device: Permanent Pacemaker Device Placement Date:: 2011 Past Psychological History: No Psychological Hx Reported Smoking Status: Former smoker - Past Family History Father Family Medical History: CVA/TIA Additional Family Medical History / Comment(s): age 83 had several strokes Mother Family Medical History: Cancer, Liver Disease, Osteoarthritis (OA) Additional Family Medical History / Comment(s): mom is still alive at age 91, hx breast cancer, emphysema (pt stated she never smoked) General Exam Limitations: no limitations General appearance: alert, in no apparent distress Head exam: Present: atraumatic, normocephalic Eye exam: Present: normal appearance. Absent: scleral icterus, conjunctival injection Neck exam: Present: normal inspection, full ROM Respiratory exam: Present: rales (Bilateral bases). Absent: normal lung sounds bilaterally, respiratory distress, wheezes, rhonchi, stridor Cardiovascular Exam: Present: regular rate, normal rhythm, normal heart sounds. Absent: systolic murmur, diastolic murmur, rubs, gallop GI/Abdominal exam: Present: soft. Absent: tenderness, guarding, rebound, mass Extremities exam: Present: normal capillary refill, pedal edema (There is mild edema at the ankles bilaterally, slightly greater on the left than right. Patient states that the left is chronically larger than the right). Absent: tenderness, calf tenderness Back exam: Present: normal inspection. Absent: CVA tenderness (R), CVA tenderness (L) Neurological exam: Present: alert Skin exam: Present: warm, dry, intact, normal color. Absent: rash Course Vital Signs 05/11/17 00:14 Temperature 102.3 F H Pulse Rate 63 Respiratory 20 Rate Blood Pressure 140/62 O2 Sat by Pulse 92 L Oximetry Medical Decision Making - Lab Data Result diagrams: 05/11/17 00:50 05/11/17 00:50 Lab Results 05/11/17 05/11/17 05/11/17 Range/Units 00:50 00:50 00:50 WBC 6.5 (3.8-10.6) k/uL RBC 3.06 L (4.30-5.90) m/uL Hgb 8.3 L (13.0-17.5) gm/dL Hct 27.6 L (39.0-53.0) % MCV 90.2 (80.0-100.0) fL MCH 27.2 (25.0-35.0) pg MCHC 30.2 L (31.0-37.0) g/dL RDW 16.3 H (11.5-15.5) % Plt Count 91 L (150-450) k/uL Neutrophils % 91 % Lymphocytes % 3 % Monocytes % 4 % Eosinophils % 0 % Basophils % 0 % Neutrophils # 6.0 (1.3-7.7) k/uL Lymphocytes # 0.2 L (1.0-4.8) k/uL Monocytes # 0.2 (0-1.0) k/uL Eosinophils # 0.0 (0-0.7) k/uL Basophils # 0.0 (0-0.2) k/uL Hypochromasia Marked Anisocytosis Slight PT (9.0-12.0) sec INR (<1.2) APTT (22.0-30.0) sec Sodium 139 (137-145) mmol/L Potassium 4.7 (3.5-5.1) mmol/L Chloride 109 H (98-107) mmol/L Carbon Dioxide 20 L (22-30) mmol/L Anion Gap 10 mmol/L BUN 65 H (9-20) mg/dL Creatinine 3.20 H (0.66-1.25) mg/dL Est GFR (MDRD) Af Amer 24 (>60 ml/min/1.73 sqM) Est GFR (MDRD) Non-Af 19 (>60 ml/min/1.73 sqM) Glucose 129 H (74-99) mg/dL Calcium 9.2 (8.4-10.2) mg/dL Total Bilirubin 0.3 (0.2-1.3) mg/dL AST 20 (17-59) U/L ALT 28 (21-72) U/L Alkaline Phosphatase 116 (38-126) U/L Total Creatine Kinase 68 (55-170) U/L CK-MB (CK-2) 1.4 (0.0-2.4) ng/mL CK-MB (CK-2) Rel Index 2.1 Troponin I 0.068 H* (0.000-0.034) ng/mL NT-Pro-B Natriuret Pep pg/mL Total Protein 5.3 L (6.3-8.2) g/dL Albumin 2.8 L (3.5-5.0) g/dL Urine Color Urine Appearance (Clear) Urine pH (5.0-8.0) Ur Specific [place] (1.001-1.035) Urine Protein (Negative) Urine Glucose (UA) (Negative) Urine Ketones (Negative) Urine Blood (Negative) Urine Nitrite (Negative) Urine Bilirubin (Negative) Urine Urobilinogen (<2.0) mg/dL Ur Leukocyte Esterase (Negative) Urine RBC (0-5) /hpf Urine WBC (0-5) /hpf Ur Squamous Epith Cells (0-4) /hpf Amorphous Sediment (None) /hpf Hyaline Casts (0-2) /lpf Granular Casts (0) /lpf Urine Mucus (None) /hpf 05/11/17 05/11/17 05/11/17 Range/Units 00:50 00:50 01:15 WBC (3.8-10.6) k/uL RBC (4.30-5.90) m/uL Hgb (13.0-17.5) gm/dL Hct (39.0-53.0) % MCV (80.0-100.0) fL MCH (25.0-35.0) pg MCHC (31.0-37.0) g/dL RDW (11.5-15.5) % Plt Count (150-450) k/uL Neutrophils % % Lymphocytes % % Monocytes % % Eosinophils % % Basophils % % Neutrophils # (1.3-7.7) k/uL Lymphocytes # (1.0-4.8) k/uL Monocytes # (0-1.0) k/uL Eosinophils # (0-0.7) k/uL Basophils # (0-0.2) k/uL Hypochromasia Anisocytosis PT 11.7 (9.0-12.0) sec INR 1.2 H (<1.2) APTT 24.2 (22.0-30.0) sec Sodium (137-145) mmol/L Potassium (3.5-5.1) mmol/L Chloride (98-107) mmol/L Carbon Dioxide (22-30) mmol/L Anion Gap mmol/L BUN (9-20) mg/dL Creatinine (0.66-1.25) mg/dL Est GFR (MDRD) Af Amer (>60 ml/min/1.73 sqM) Est GFR (MDRD) Non-Af (>60 ml/min/1.73 sqM) Glucose (74-99) mg/dL Calcium (8.4-10.2) mg/dL Total Bilirubin (0.2-1.3) mg/dL AST (17-59) U/L ALT (21-72) U/L Alkaline Phosphatase (38-126) U/L Total Creatine Kinase (55-170) U/L CK-MB (CK-2) (0.0-2.4) ng/mL CK-MB (CK-2) Rel Index Troponin I (0.000-0.034) ng/mL NT-Pro-B Natriuret Pep 60143 pg/mL Total Protein (6.3-8.2) g/dL Albumin (3.5-5.0) g/dL Urine Color Yellow Urine Appearance Cloudy (Clear) Urine pH 6.0 (5.0-8.0) Ur Specific [place] 1.012 (1.001-1.035) Urine Protein 1+ H (Negative) Urine Glucose (UA) 1+ H (Negative) Urine Ketones Negative (Negative) Urine Blood Negative (Negative) Urine Nitrite Negative (Negative) Urine Bilirubin Negative (Negative) Urine Urobilinogen <2.0 (<2.0) mg/dL Ur Leukocyte Esterase Negative (Negative) Urine RBC 4 (0-5) /hpf Urine WBC 1 (0-5) /hpf Ur Squamous Epith Cells 1 (0-4) /hpf Amorphous Sediment Rare H (None) /hpf Hyaline Casts 23 H (0-2) /lpf Granular Casts 1 (0) /lpf Urine Mucus Rare H (None) /hpf Disposition Clinical Impression: Congestive heart failure, CHF exacerbation, Pneumonia, Renal failure (ARF), acute on chronic, Anemia, Elevated troponin I level Disposition: ADMITTED IP TO THIS HOSP Condition: Poor Referrals: Félix Sykes MD [Primary Care Provider] - 1-2 days
[2017-05-11 01:08] LABS: Anisocytosis Slight; Basophils % (A) 0 %; CH 26.7; CHCM 29.8; Eosinophils % (A) 0 %; HCT 27.6 % (39.0-53.0); HDW 2.58; HGB 8.3 gm/dL (13.0-17.5); Hypochromasia Marked; Luc # (Auto) 0.09; Luc % (Auto) 1; Lymphocytes # (A) 0.2 k/uL (1.0-4.8); Lymphocytes % (A) 3 %; MCH 27.2 pg (25.0-35.0); MCHC 30.2 g/dL (31.0-37.0); MCV 90.2 fL (80.0-100.0); Mean Platelet Volume 10.3; Monocytes # (A) 0.2 k/uL (0-1.0); Monocytes % (A) 4 %; Neutrophils % (A) 91 %; RBC 3.06 m/uL (4.30-5.90); RDW 16.3 % (11.5-15.5); WBC 6.5 k/uL (3.8-10.6); WBC (Perox) 6.16
--- NOTE | 2017-05-11 01:11 | XR ---
EXAMINATION TYPE: XR chest 1V portable DATE OF EXAM: 05/11/2017 COMPARISON: 01/25/2017 HISTORY: Short of breath TECHNIQUE: Single frontal view of the chest is obtained. FINDINGS: Heart is enlarged. There is mild pulmonary vascular congestion. There is some infiltrate i n the left lower lobe. There is left axillary pacemaker with the lead tips in the right ventricle. Th ere are chest leads. There is no definite pleural effusion. IMPRESSION: Mild heart failure. There is some left lower lobe pneumonia that is slightly worse than last exam. Heart failure is slightly improved since last exam
[2017-05-11 01:14] LABS: INR 1.2 (<1.2); Partial Thromboplastin Time 24.2 sec (22.0-30.0); Prothrombin Time 11.7 sec (9.0-12.0)
[2017-05-11 01:15] LABS: Calcium 9.2 mg/dL (8.4-10.2); Potassium 4.7 mmol/L (3.5-5.1); Total Bilirubin 0.3 mg/dL (0.2-1.3); Total Protein 5.3 g/dL (6.3-8.2)
[2017-05-11 01:29] LABS: Amorphous Sediment,Urine Rare /hpf; Appearance,Urine Cloudy (Clear); Bilirubin,Urine Negative (Negative); Glucose,Urine (UA) 1+ (Negative); Granular Casts,Urine 1 /lpf (0); Ketones,Urine Negative (Negative); Leukocyte Esterase,Urine Negative (Negative); Mucus,Urine Rare /hpf; Nitrite,Urine Negative (Negative); Particle Count 4915; Protein,Urine 1+ (Negative); RBC,Urine 4 /hpf (0-5); Specific Gravity,Urine 1.012 (1.001-1.035); Squamous Epithelial Cell,Urine 1 /hpf (0-4); UA Billing (MACRO vs. MICRO) MICRO; Urobilinogen,Urine <2.0 mg/dL (<2.0); WBC,Urine 1 /hpf (0-5)
[2017-05-11 01:43] LABS: Creatine Kinase MB 1.4 ng/mL (0.0-2.4)
[2017-05-11 01:52] LABS: Troponin I 0.068 ng/mL (0.000-0.034)
[2017-05-11] MEDS ORDERED: PNEUMONIA PROTOCOL UTILIZED 1 EACH MISC PO PRN (02:05)
[2017-05-11] MEDS ORDERED: LEVOFLOXACIN 750MG-D5W PMX 750 MG in DEXTROSE/WATER 1 150ML.BAG IVPB STA (02:05)
[2017-05-11] MEDS ORDERED: NITROGLYCERIN SL TABS 0.4 MG TAB SUBLINGUAL PRN (02:09)
[2017-05-11] MEDS ORDERED: PANTOPRAZOLE 40 MG TABLET PO PRN (02:09)
[2017-05-11] MEDS ORDERED: NITROGLYCERIN OINT 1 INCH/GM PACKET TOPICAL STA (02:49)
[2017-05-11] MEDS: SODIUM CHLORIDE 0.9% 1,000 ML IV SCH (03:57)
[2017-05-11] MEDS ORDERED: NITROGLYCERIN OINT 1 INCH/GM PACKET TOPICAL SCH (06:00)
[2017-05-11 06:36] LABS: Glucose,Whole Blood 79 mg/dL (75-99)
[2017-05-11] MEDS: FERROUS SULFATE 325 MG TAB PO SCH ×2 (06:43→15:41)
[2017-05-11] MEDS: HYDROcodone/APAP 7.5-325MG 1 EACH TAB PO PRN ×2 (06:43→15:41)
[2017-05-11] MEDS: ASPIRIN 81 MG PO SCH ×2 (08:42→20:20)
[2017-05-11] MEDS: VITAMIN E (DL,TOCOPHERYL ACET) 400 UNIT CAP PO SCH (08:44)
[2017-05-11] MEDS: TORSEMIDE 20 MG TAB PO SCH (08:44)
[2017-05-11] MEDS: INSULIN NPH 300 UNIT/3 ML VIAL SQ SCH (08:45)
[2017-05-11] MEDS: CLOPIDOGREL 75 MG TAB PO SCH (08:48)
[2017-05-11] MEDS: glipiZIDE 10 MG TAB PO SCH ×2 (08:52→20:20)
[2017-05-11] MEDS: CARVEDILOL 12.5 MG TAB PO SCH ×2 (08:53→20:20)
[2017-05-11] MEDS ORDERED: hydrALAZINE HCL 25 MG TAB PO SCH (09:00)
[2017-05-11] MEDS ORDERED: LISINOPRIL 20 MG TAB PO SCH (09:00)
[2017-05-11] MEDS ORDERED: ISOSORBIDE MONONITRATE ER 30 MG TAB.ER.24H PO PRN (09:00)
[2017-05-11 09:39] LABS: Creatine Kinase MB 1.2 ng/mL (0.0-2.4)
[2017-05-11 09:42] LABS: Troponin I 0.063 ng/mL (0.000-0.034)
[2017-05-11] MEDS ORDERED: FUROSEMIDE 10 MG/ML 4 ML VIAL IV STA (10:33)
--- NOTE | 2017-05-11 10:39 | ECHOF ---
Referral Reason:Heart Failure MEASUREMENTS -------- HEIGHT: 175.3 cm WEIGHT: 82.1 kg BP: 169/75 RVIDd: 3.9 cm (< 3.3) IVSd: 1.4 cm (0.6 - 1.1) LVIDd: 4.7 cm (3.9 - 5.3) LVPWd: 1.5 cm (0.6 - 1.1) IVSs: 2.0 cm LVIDs: 3.0 cm LVPWs: 2.3 cm LA Diam: 4.0 cm (2.7 - 3.8) LAESV Index (A-L): 47.73 ml/m Ao Diam: 3.4 cm (2.0 - 3.7) AV Cusp: 2.0 cm (1.5 - 2.6) MV EXCURSION: 16.659 mm (> 18.000) MV EF SLOPE: 120 mm/s (70 - 150) EPSS: 0.3 cm MV E Bryon: 1.57 m/s MV DecT: 222 ms MV A Bryon: 0.51 m/s MV E/A Ratio: 3.10 AV maxP.79 mmHg AV meanP.63 mmHg RAP: 15.00 mmHg RVSP: 68.96 mmHg FINDINGS -------- Paced rhythm. This was a technically good study. The left ventricular size is normal. There is moderate concentric left ventricular hypertrophy. Overall left ventricular systolic function is low-normal with, an EF between 50 - 55 %. Apical septum LV wall motion is hypokinetic. The right ventricle is moderately enlarged. LA is severely dilated >40 ml/m2 The right atrium is normal in size. There is mild aortic valve sclerosis. The mitral valve leaflets are mildly thickened. Mild mitral annular calcification present. Mild mitral regurgitation is present. Mild tricuspid regurgitation present. There is severe pulmonary hypertension. The right ventricular systolic pressure, as measured by Doppler, is 68.96mmHg. Trace/mild (physiologic) pulmonic regurgitation. The aortic root size is normal. The inferior vena cava is dilated with no significant inspiratory collapse which is consistent estimated right atrial pressure of >15 mmHg. There is no pericardial effusion. CONCLUSIONS -------- 1. Paced rhythm. 2. There is mild aortic valve sclerosis. 3. The mitral valve leaflets are mildly thickened. 4. Mild mitral annular calcification present. 5. Mild mitral regurgitation is present. 6. Mild tricuspid regurgitation present. 7. There is severe pulmonary hypertension. 8. The right ventricular systolic pressure, as measured by Doppler, is 68.96mmHg. 9. Trace/mild (physiologic) pulmonic regurgitation. 10. The aortic root size is normal. 11. The inferior vena cava is dilated with no significant inspiratory collapse which is consistent estimated right atrial pressure of >15 mmHg. 12. This was a technically good study. 13. There is no pericardial effusion. 14. The left ventricular size is normal. 15. There is moderate concentric left ventricular hypertrophy. 16. Overall left ventricular systolic function is low-normal with, an EF between 50 - 55 %. 17. Apical septum LV wall motion is hypokinetic. 18. The right ventricle is moderately enlarged. 19. LA is severely dilated >40 ml/m2 20. The right atrium is normal in size. SPUD GRADER: Saniya Ramirez RDCS
[2017-05-11] MEDS: ENOXAPARIN 30 MG/0.3 ML SYRINGE SQ SCH (11:21)
[2017-05-11 11:42] LABS: Glucose,Whole Blood 126 mg/dL (75-99)
--- NOTE | 2017-05-11 11:55 | CONS ---
CONSULTATION Mr. Magdaleno is a 61-year-old male who is followed by Dr. Higgins. History of coronary disease, status post bypass grafting, history of severe ischemic cardiomyopathy, ICD implantation, who presented to the hospital with symptoms of not feeling well and dyspneic. Apparently for the last couple days he has not been feeling well. His weight has been fluctuating and he had to be seen by his nurse practitioner in [place], underwent chest x-ray that suggested evidence of pneumonia. Subsequent to that he came in over here. He has been coughing, but the cough is nonproductive, but has been having chills and fever. He has no significant chest pain. He has no dizziness, palpitation. No clear PND. No orthopnea. He has noted some peripheral edema that he thinks is related to the fact that he has been sitting longer in his because of hunting season. The patient had prior admission to the hospital for CHF. He has a history of percutaneous revascularization done by Dr. Nolen as well history of chronic kidney disease. His coronary risk factors are remarkable for hypertension, hyperlipidemia, and diabetes. She is a nonsmoker. MEDICATION: Include: 1. Insulin. 2. Aspirin 81 mg daily. 3. Lipitor 40 mg daily. 4. Coreg 25 mg in the morning and 12.5 in the evening. 5. Plavix 75 mg daily. 6. Lisinopril 20 mg daily. 7. Furosemide 20 mg daily. 8. Hydralazine 25 mg twice a day. 9. Vitamin D. 10.Omeprazole. REVIEW OF SYSTEMS: Respiratory system: He has the cough, nonproductive. He has dyspnea on exertion. No wheezing. GI system: He felt nauseated yesterday. No history of GI bleeding. system: No history of dysuria or hematuria. Nervous system: No stroke or seizure. PHYSICAL EXAMINATION: A 67-year-old male, alert, oriented, in no apparent distress. Blood pressure 156/60 with a temperature 101.1. HEAD: Normocephalic. Eyes sclerae anicteric. Neck good carotid upstroke. No bruit. No jugular venous distention. Lungs with a few crackles at the left base. HEART: Regular rate and rhythm S1, S2. No S3 with systolic murmur 2/6 heard at the base. No diastolic murmur. ABDOMEN: Soft, nontender. Positive bowel sounds. No megaly. Extremities: Trace to 1+ edema bilaterally. LAB DATA: Lab data revealed a BUN and creatinine of 65 and 3.2. Potassium of 4.7, hemoglobin of 8.3. His troponin 0.068 and 0.063[place] [address]. His chest x-ray is consistent with left lower infiltrate, left lower lobe infiltrate. He has mild congestion. EKG revealed a evidence of a sinus mechanism with 100% pacing. IMPRESSION: 1. Probable pneumonia by chest x-ray and physical examination. The patient is febrile. 2. Mild congestive heart failure in a patient with known history of systolic dysfunction, probably exacerbated by his lung infection. 3. History of coronary artery disease status post coronary artery bypass grafting. 4. Chronic kidney disease. 5. History of hypertension. 6. Hyperlipidemia. 7. Diabetes mellitus. RECOMMENDATION: I will increase the dose of his hydralazine and switch him to oral nitrate. He will get 1 dose of IV Lasix. He has been started on IV antibiotics. His renal function will be followed closely. He had an echocardiogram ordered. Depending on his progress, further recommendations will be made. Thank you for this consult. We will follow with you. MMODL / IJN: [id number] /
[2017-05-11 14:25] LABS: Creatine Kinase MB 1.3 ng/mL (0.0-2.4)
[2017-05-11 14:31] LABS: Troponin I 0.073 ng/mL (0.000-0.034)
[2017-05-11] MEDS: hydrALAZINE HCL 25 MG TAB PO SCH ×2 (15:41→20:19)
[2017-05-11 16:34] LABS: Glucose,Whole Blood 100 mg/dL (75-99)
[2017-05-11] MEDS: ATORVASTATIN 40 MG TAB PO SCH (20:19)
[2017-05-11] MEDS: FOLIC ACID 1 MG TAB PO SCH (20:20)
--- NOTE | 2017-05-11 20:22 | CONS ---
CONSULTATION REASON FOR CONSULT: Renal failure. HISTORY OF PRESENT ILLNESS: The patient is a 67-year-old white male who has a history of hypertension, cardiomyopathy, CHF. He was admitted to the hospital with complaints of shortness of breath, increased lower extremity edema. The patient does have CKD. His previous creatinine has been at about 2.2 to 2.1 mg/dL. He came in with a creatinine of 3.2. Review of previous labs show a serum creatinine as low as 1.1 and 1.3 in January 2016. Since then, his creatinine has been in the 1.8 and slowly climbing up to around 2 to 2.2 mg/dL now as of December of 2016. Etiology for chronic kidney disease is nephrosclerosis and diabetic nephropathy. The patient is maintained on MIC inhibitors. Prior to admission, he denies any episodes of hypotension. Blood pressure is not been low post admission as well. The patient denies use of any nonsteroidal anti- inflammatory agents. His echocardiogram this admission shows ejection fraction 50% to 55% with severely dilated left atrium and moderately enlarged right ventricle. The patient has moderate concentric LVH. Chest x-ray on this admission shows evidence of possible left lower lobe pneumonia as well as mild heart failure. The patient did receive IV Lasix early this morning. He is normally maintained on Demadex as outpatient. PAST MEDICAL HISTORY: 1. Significant for CKD, NKF stage 3B . 2. Diastolic heart failure. 3. Severely dilated left atrium on echocardiogram. 4. The patient also has diabetes. 5. Dyslipidemia. 6. Gout. 7. Osteoarthritis. PAST SURGICAL HISTORY: Significant for heart catheterization, coronary artery bypass surgery, pacemaker placement, coronary stent placement, hernia repair, hemorrhoidectomy, colonoscopies. MEDICATIONS: At home prior to admission included: 1. Folic acid. 2. Aspirin. 3. Lipitor. 4. Zestril. 5. Hydralazine. 6. Coreg. 7. Imdur. 8. Prilosec. 9. Glucotrol. 10.Plavix. 11.Zyloprim. 12.Demadex. ALLERGIES: INCLUDE KEFLEX, PENICILLIN, SULFA. REVIEW OF SYSTEMS: As per HPI. Other systems negative. No history of nausea, vomiting, abdominal pain or diarrhea. Patient did have some cough. He felt weak. SOCIAL HISTORY: Negative for smoking or alcohol abuse. EXAMINATION: Patient is comfortable. He is not in any acute distress. Blood pressure 148/68, heart rate 59 per minute. He has a temp of 100.4 degrees Fahrenheit. HEART: S1, S2. LUNGS: Bilateral breath sounds are heard. Decreased breath sounds at bases with occasional crackles heard. The patient did have a temp of 101 earlier. Lower extremities show edema 1+ bilaterally. ABDOMEN: Soft, obese nontender. DIGITAL ASSET MANAGER: Grossly intact. LABS: Sodium 139, potassium 4.7, chloride 109, BUN 65, serum creatinine 3.2, hemoglobin 8.3 g/dL. ASSESSMENT: 1. Acute kidney injury, most likely acute tubular necrosis, currently nonoliguric. I will hold off on the angiotensin-converting enzyme inhibitors for now. 2. Chronic kidney disease and give stage 3B secondary to nephrosclerosis and diabetic nephropathy. Previous baseline creatinine appears to be on 2 mg/dL most of 2016. 3. Cardiomyopathy with ejection fraction of 50% -55% with severely dilated left atrium. 4. Anemia of chronic disease. Rule out iron deficiency. 5. Type 2 diabetes. 6. Dyslipidemia. 7. Fever with possible pneumonia, most likely secondary to pneumonia. PLAN: May continue with the Demadex and hold off on lisinopril for now. Repeat labs in a.m. We can increase the Coreg if needed for uncontrolled hypertension. The patient is also on a very low dose of hydralazine, which could be increased if his blood pressure is uncontrolled. May continue with the Levaquin for now. Thank you for this consultation. We will continue to follow the patient with you during his hospitalization. MMODL / IJN: [id number] /
--- NOTE | 2017-05-11 20:43 | HP ---
HISTORY AND PHYSICAL DATE OF ADMISSION: 05/11/2017. PRESENTING COMPLAINT: Short of breath. HISTORY OF PRESENTING COMPLAINT: This is a 67-year-old patient, rather extensive medical history, being followed by Dr. Sykes. Chronic stable medical conditions include thrombocytopenia, diabetes mellitus type 2 on insulin, hypertension, hyperlipidemia, COPD, peripheral artery disease, secondary pulmonary hypertension, chronic kidney disease. The patient presents with 1 week of increasing edema, decreased appetite, run down, short of breath and fevers, presented with the same. REVIEW OF SYSTEMS: CONSTITUTIONAL: Febrile, tired. Decreased appetite. HEENT: None. RESPIRATORY: As above. CARDIOVASCULAR: No chest pain, edema present. GASTROINTESTINAL: None. GENITOURINARY: None. MUSCULOSKELETAL: Pain in the joints. DERMATOLOGICAL: No bruising. LYMPHATIC: None. PSYCHIATRY: None. NEUROLOGICAL: None. PAST MEDICAL HISTORY: Secondary pulmonary hypertension, peripheral artery disease, COPD, complete heart block, hyperlipidemia, hypertension, diabetes mellitus type 2, thrombocytopenia, CHF with diastolic dysfunction, chronic kidney disease, prostate disorder. PAST SURGICAL HISTORY: Coronary artery bypass, cardiac cath with stent, pacemaker, triple bypass in 2010, stent to the circumflex-stent to the LAD, umbilical hernia repair, several nose surgeries, hemorrhoidectomy. SOCIAL HISTORY: Patient smoked for more than 40 years, stopped in 2015, lives with Shaunna, drinks about 2 beers a day. FAMILY HISTORY: Strokes. HOME MEDICATION: 1. Clindamycin 300 mg p.o. q.8. 2. Tylenol 1000 mg p.o. t.i.d. 3. Hydralazine 25 mg b.i.d. 4. Glucotrol 10 mg p.o. b.i.d. 5. Vitamin E 400 units p.o. daily. 6. Demadex 20 mg p.o. daily. 7. Prilosec 20 mg p.o. daily. 8. Nitrostat 0.4 sublingual q.5 p.r.n. 9. Zestril 20 mg p.o. daily. 10.[place] 7.5, 1 tablet every 6 hours p.r.n. 11.Folic acid 0.4 mg p.o. q.h.s. 12.Elemental iron 325 p.o. b.i.d. 13.Plavix 75 mg p.o. daily. 14.Coreg 25 mg p.o. daily and 12.5 mg p.o. q.h.s. 15.Lipitor 40 mg q.h.s. 16.Aspirin 81 mg p.o. b.i.d. 17.Allopurinol 100 mg p.o. daily. 18.Novolin N 12 units subcu q.h.s. ALLERGIES: KEFLEX, PENICILLIN, SULFUR. EXAMINATION: VITAL SIGNS: On presentation, temperature 102.3 pulse 83, respirations 20, blood pressure 142/62, pulse ox 92% room air. GENERAL APPEARANCE: Average built, lying in bed, tired-appearing. EYES: Pupils equal. Conjunctivae normal. HEENT: Oral cavity normal. NECK: JVD unable to assess. Mass not palpable. RESPIRATORY: Effort increased. LUNGS: Diminished breath sounds, especially at the left base. CARDIOVASCULAR: 1st and 2nd sounds normal. Mild edema. ABDOMEN: Soft, nontender. Liver and spleen not palpable. LYMPHATIC: No lymph nodes palpable in neck or axillae. PSYCHIATRY: Alert and oriented x3. Mood and affect normal. NEUROLOGICAL: Pupils equal. Cranial nerve grossly intact. Power and sensation grossly intact. INVESTIGATION: Chest x-ray shows left-sided infiltrate. Two-D echocardiogram shows severe pulmonary hypertension, EF noted at 55%, moderate concentric left ventricular hypertrophy. White count 6.5 hemoglobin 8.3, platelets 91. Potassium 4.7 BUN 65, creatinine 3.20. Patient's BUN and creatinine were 47 and 2.24 back in December of this year. Troponin 0.068. ASSESSMENT: 1. Left lower lobe pneumonia, suspect gram-negative organism, present on admission. 2. Idiopathic thrombocytopenic purpura. 3. Diabetes mellitus type 2, chronically on insulin. 4. Essential hypertension. 5. Hyperlipidemia. 6. Chronic obstructive pulmonary disease in an ex-smoker. 7. Peripheral artery disease. 8. Severe secondary pulmonary hypertension secondary to chronic obstructive pulmonary disease. 9. Hypertensive heart disease. 10.Chronic kidney disease, stage 4 from diabetic nephropathy and hypertensive nephrosclerosis. 11.Hypertension with chronic kidney disease. 12.Acute on chronic congestive heart failure from diastolic dysfunction, ejection fraction 50% to 55% from underlying coronary artery disease. PLAN: The patient was to get Levaquin earlier. Will put the patient on ceftazidime. Consultation with Nephrology will be done. Two-D echo showed an EF 50% to 55%. There is some element of CHF exacerbation. Care was discussed with the patient. Questions were answered. Follow electrolytes closely. MMODL / IJN: [id number] /
[2017-05-11 20:45] LABS: Glucose,Whole Blood 98 mg/dL (75-99)
[2017-05-12] MEDS: DEXTROSE 10 % IN WATER 250 ML IV STA ×2 (04:45→17:30)
[2017-05-12 04:46] LABS: Glucose,Whole Blood 37 mg/dL (75-99)
[2017-05-12 04:58] LABS: Glucose,Whole Blood 122 mg/dL (75-99)
[2017-05-12 05:40] LABS: Calcium 9.4 mg/dL (8.4-10.2); Potassium 4.9 mmol/L (3.5-5.1)
[2017-05-12 05:47] LABS: Glucose,Whole Blood 102 mg/dL (75-99)
[2017-05-12] MEDS: SODIUM CHLORIDE 0.9% 1,000 ML IV SCH (06:38)
[2017-05-12] MEDS: FERROUS SULFATE 325 MG TAB PO SCH ×2 (06:38→17:26)
[2017-05-12] MEDS ORDERED: LEVOFLOXACIN 750 MG TAB PO SCH (09:00)
[2017-05-12] MEDS: ISOSORBIDE MONONITRATE ER 30 MG TAB.ER.24H PO SCH (09:20)
[2017-05-12] MEDS: ENOXAPARIN 30 MG/0.3 ML SYRINGE SQ SCH (09:21)
[2017-05-12] MEDS: ASPIRIN 81 MG PO SCH ×2 (09:21→21:04)
[2017-05-12] MEDS: hydrALAZINE HCL 25 MG TAB PO SCH ×3 (09:21→21:04)
[2017-05-12] MEDS: CARVEDILOL 12.5 MG TAB PO SCH ×2 (09:21→21:05)
[2017-05-12] MEDS: CLOPIDOGREL 75 MG TAB PO SCH (09:21)
[2017-05-12] MEDS: glipiZIDE 10 MG TAB PO SCH (09:21)
[2017-05-12] MEDS: VITAMIN E (DL,TOCOPHERYL ACET) 400 UNIT CAP PO SCH (09:22)
[2017-05-12] MEDS: TORSEMIDE 20 MG TAB PO SCH (09:22)
[2017-05-12] MEDS: ACETAMINOPHEN TAB 325 MG TAB PO PRN ×3 (09:26→22:09)
[2017-05-12 09:31] LABS: Glucose,Whole Blood 77 mg/dL (75-99)
--- NOTE | 2017-05-12 10:22 | P.PN ---
Subjective Progress Note Date: 05/12/17 Principal diagnosis: Shortness of breath This is a 67-year-old gentleman with known history of coronary artery disease and prior bypass surgery, prior AICD implantation, hypertension, diabetes, hyperlipidemia, who presented to the hospital with symptoms of generally not feeling well and associated dyspnea. Patient also had a productive cough. Patient also has history of PCI performed by Dr. Hua, and history of chronic kidney disease. Patient was treated with IV Lasix for mild congestive heart failure and also was on antibiotics for a pneumonia. He was seen and examined this morning, states that his breathing is improving, cough much more productive today overall. Blood sugars this morning dropped down to 37, and states he did not feel well at all at that time but however now is feeling more back to himself. Blood pressure 144/78 heart rate in the 60s, low- grade temperature of 100.1. Potassium 4.9, BUN 75, creatinine 3.7. Echocardiogram with Doppler study was performed which revealed an ejection fraction of 50-55%, moderate to severe pulmonary hypertension. Objective - Vital Signs Vital signs: Vital Signs Temp 100.1 F H 05/12/17 00:00 Pulse 60 05/12/17 04:00 Resp 18 05/12/17 04:00 BP 145/77 05/12/17 04:00 Pulse Ox 94 L 05/12/17 04:00 Intake & Output 05/11/17 05/12/17 05/12/17 18:59 06:59 18:59 Intake Total 120 420 Output Total 250 300 Balance -130 120 Weight 84.4 kg 84.4 kg Intake: IV 300 .9 200 cefTAZidime 1 gm In 100 Sodium Chloride 0.9% 50 ml @ 100 mls/hr IVPB Q8HR [facility] Rx#:[id number] Oral 120 120 Output: Urine 250 300 Other: Voiding Method Toilet Toilet # Voids 1 - Exam PHYSICAL EXAMINATION: HEENT: Head is atraumatic, normocephalic. Pupils equal, round. Neck is supple. There is no elevated jugular venous pressure. HEART EXAMINATION: R S1 and S2 systolic murmur is heard. CHEST EXAMINATION: Lungs reveal crackles to bilateral bases. ABDOMEN: Soft, nontender. Bowel sounds are heard. No organomegaly noted. EXTREMITIES: 2+ peripheral pulses with evidence of peripheral edema and no calf tenderness noted. NEUROLOGIC patient is awake, alert and oriented -3. . - Labs CBC & Chem 7: 05/11/17 00:50 05/12/17 05:08 Labs: Abnormal Lab Results - Last 24 Hours (Table) 05/11/17 05/11/17 05/11/17 Range/Units 11:35 13:17 16:24 Carbon Dioxide (22-30) mmol/L BUN (9-20) mg/dL Creatinine (0.66-1.25) mg/dL Glucose (74-99) mg/dL POC Glucose (mg/dL) 126 H 100 H (75-99) mg/dL Troponin I 0.073 H* (0.000-0.034) ng/mL 05/12/17 05/12/17 05/12/17 Range/Units 04:44 04:56 05:08 Carbon Dioxide 20 L (22-30) mmol/L BUN 75 H (9-20) mg/dL Creatinine 3.70 H (0.66-1.25) mg/dL Glucose 101 H (74-99) mg/dL POC Glucose (mg/dL) 37 L 122 H (75-99) mg/dL Troponin I (0.000-0.034) ng/mL 05/12/17 Range/Units 05:46 Carbon Dioxide (22-30) mmol/L BUN (9-20) mg/dL Creatinine (0.66-1.25) mg/dL Glucose (74-99) mg/dL POC Glucose (mg/dL) 102 H (75-99) mg/dL Troponin I (0.000-0.034) ng/mL Microbiology - Last 24 Hours (Table) 05/11/17 00:50 Blood Culture - Preliminary Blood No Growth after 24 hours Assessment and Plan (1) Pneumonia Status: Acute (2) Renal failure (ARF), acute on chronic Status: Acute (3) AICD (automatic cardioverter/defibrillator) present Status: Acute (4) CAD (coronary artery disease) Status: Acute (5) Diabetes Status: Acute (6) Diastolic CHF, acute on chronic Status: Acute (7) HTN (hypertension) Status: Acute (8) Hyperlipemia Status: Acute Plan: From cardiology's perspective, we'll recommend to continue the patient on his current medication. Continue IV antibiotics for his pneumonia. DNP note has been reviewed, I agree with a documented findings and plan of care. Patient was seen and examined.
[2017-05-12 12:07] LABS: Glucose,Whole Blood 60 mg/dL (75-99)
[2017-05-12] MEDS: IPRATROPIUM-ALBUTEROL 3 ML NEB INHALATION SCH ×3 (12:28→21:39)
[2017-05-12 12:33] LABS: Glucose,Whole Blood 76 mg/dL (75-99)
[2017-05-12] MEDS: INSULIN NPH 300 UNIT/3 ML VIAL SQ SCH (12:52)
--- NOTE | 2017-05-12 14:20 | PN ---
PROGRESS NOTE Patient is seen for followup for acute kidney injury on top of chronic kidney disease. He was admitted to the hospital with fever and shortness of breath. He also had increased lower extremity edema. Patient did receive 1 dose of IV Lasix. He is now maintained on oral Demadex. His serum creatinine on admission was 3.2 mg/dL. It has gone up to 3.7. Yesterday, I discontinued the MIC inhibitors. His baseline creatinine has been at about 2 to 2.1 mg/dL. There is a suggestion of pneumonia on chest x-ray and patient is maintained on ceftazidime. His blood pressure has not been low. He has been voiding and a postvoid residual has been ordered. PHYSICAL EXAMINATION: Blood pressure is 146/73, heart rate 80 per minute. Patient is afebrile with temperature 100.5 degrees Fahrenheit. Examination of the heart S1, S2. Examination lungs, bilateral breath sounds are heard. No crackles or wheezing is heard. Abdomen is soft, nontender. Examination lower extremity shows no evidence of edema. [place] [employer] exam is grossly intact. Patient is moving all 4 extremities. LAB: Sodium 137, potassium 4.9, chloride 106, BUN 75, serum creatinine 3.7, calcium 9.4. ASSESSMENT: 1. Acute kidney injury, most likely acute tubular necrosis. Rule out urine retention. Check postvoidal residual. I will also hold off on the Demadex as patient remains febrile and currently does not appear to be volume overloaded. There are no other nephrotoxic agents on board. Blood pressure is not too low. 2. Fever secondary to pneumonia. 3. Cardiomyopathy, ejection fraction 50% to 55% with severely dilated left atrium. 4. Type 2 diabetes. 5. Chronic kidney disease stage IIIB secondary to nephrosclerosis and diabetic nephropathy. Baseline creatinine about 2. 6. Anemia of chronic disease, rule out iron deficiency. 7. Hypertension, currently controlled. PLAN: Check postvoidal residual. DC Demadex. Repeat labs in a.m. Continue antibiotics. Check iron profile. MMODL / IJN: [id number] /
[2017-05-12 17:35] LABS: Glucose,Whole Blood 39 mg/dL (75-99)
[2017-05-12 18:04] LABS: Glucose,Whole Blood 149 mg/dL (75-99)
--- NOTE | 2017-05-12 18:23 | P.PN ---
Progress Note - Text Progress Note Date: 05/12/17 DATE OF SERVICE: 05/12/2017 PRESENTING COMPLAINT: Shortness of breath HISTORY OF PRESENT ILLNESS: 67-year-old male presented with increasing edema, decreased appetite rundown short of breath and fevers, found to have left lower lobe pneumonia. Admitted for the same. INTERVAL HISTORY: 05/12/2017: Patient lying in bed appears somewhat uncomfortable. Receiving a breathing treatment, looks ill. Febrile, non-productive cough, appetite lowl, IV antibiotics continue cardiology is seeing the patient some adjustments have been made to his medications. Nephrology also on the case has made some medication adjustments MIC inhibitor was discontinued on admission. Postvoid residual ordered. REVIEW OF SYSTEMS: Done for constitutional ,cardiovascular, GI, pulmonary with relevant findings as above. CURRENT MEDICATIONS Tylenol, [place], DuoNeb's, aspirin, Lipitor, Coreg 25 mg by mouth daily, Coreg 12.5 mg by mouth at bedtime, ceftazidime 1 g IV piggyback, Plavix, Lovenox, iron , folic acid, Glucotrol 10 mg by mouth twice a day, Apresoline 25 mg by mouth 3 times a day, Imdur 30 mg by mouth daily, Protonix PHYSICAL EXAM VITAL SIGNS: Temperature 100.5, pulse 64, respirations 18, blood pressure 146/73, oxygen saturation 93% on 2 L. GENERAL APPEARANCE: Lying in bed, ill and anxious appearing. EYES: Pupils equal. Conjunctiva normal. NECK: JVD unable to assess. Mass not palpable. RESPIRATORY: Respiratory effort crease. Lungs diminished with expiratory crackles to auscultation. CARDIOVASCULAR: First and second sounds normal. No edema. ABDOMEN: Soft. Liver and spleen not palpable. No tenderness. No mass palpable. PSYCHIATRY: Alert and oriented x3. Mood and affect normal. INVESTIGATIONS: BUN 75, creatinine and 3.70, Accu-Cheks noted. ASSESSMENT: -Left lower lobe pneumonia, suspect gram-negative organism, present on admission. -Idiopathic thrombocytopenic Purpura -Diabetes mellitus type 2 chronically on insulin. -Essential hypertension. -Hyperlipidemia. -Chronic obstructive pulmonary disease in an ex-smoker. -Peripheral artery disease -Severe secondary pulmonary hypertension secondary to chronic obstructive pulmonary disease. -Hypertensive heart disease. -Chronic kidney disease stage IV from diabetic nephropathy and hypertensive nephrosclerosis. -Hypertension with chronic kidney disease. -Acute on chronic congestive heart failure from diastolic dysfunction, ejection fraction 50-55% from underlying coronary artery disease. PLAN: Bumex decreased today, Imdur added MIC inhibitor stopped, nursing to perform postvoid residuals. Ceftazidime to continue. Plan of care discussed with the patient and family at the bedside there and agreement. We'll follow closely GUEST HISTORY CLERK statement: Patient was seen and examined by nurse practitioner Perri Fernández and all elements of the case discussed with attending Dr. Jerez
[2017-05-12 18:47] LABS: Iron Saturation 3.45 (15.00-50.00)
[2017-05-12 20:32] LABS: Glucose,Whole Blood 67 mg/dL (75-99)
[2017-05-12 20:53] LABS: Glucose,Whole Blood 61 mg/dL (75-99)
[2017-05-12] MEDS: METOCLOPRAMIDE 5 MG/ML 2 ML VIAL IVP PRN (20:55)
[2017-05-12] MEDS: guaiFENesin-DM 100-10MG/5ML 10 ML CUP PO PRN (20:55)
[2017-05-12] MEDS: ATORVASTATIN 40 MG TAB PO SCH (21:04)
[2017-05-12] MEDS: FOLIC ACID 1 MG TAB PO SCH (21:05)
[2017-05-12 21:08] LABS: Glucose,Whole Blood 71 mg/dL (75-99)
[2017-05-12] MEDS ORDERED: DEXTROSE 5%-0.9% NACL 1,000 ML IV SCH (21:30)
[2017-05-12] MEDS ORDERED: FUROSEMIDE 10 MG/ML 4 ML VIAL IV STA (21:30)
[2017-05-12] MEDS ORDERED: FUROSEMIDE 10 MG/ML 4 ML VIAL ONE (21:38)
--- NOTE | 2017-05-12 21:44 | PN ---
PROGRESS NOTE ATTENDING NOTE: This patient was seen and examined by me. I discussed the case with my nurse practitioner, Ghadadejon. Patient was admitted with element of CHF exacerbation and pneumonia. Somewhat tired. Did get some Lasix. Edema has gone down. Cough. Feeling tired and rundown. Family is at the bedside. Did eat very little. PHYSICAL EXAMINATION: On examination, febrile. Temperature 100.5, pulse 64, blood pressure 146/73. LUNGS: Decreased breath sounds. Some crackles. Tired-appearing. Minimal edema. LABORATORY DATA: Potassium 4.9. BUN 75, creatinine 3.70. ASSESSMENT: 1. Left lower lobe pneumonia; suspect Gram-negative organism, present on admission, slow to respond. 2. Acute on chronic congestive heart failure from diastolic dysfunction, EF 50% to 55%. 3. Coronary artery disease, improved. 4. Chronic kidney disease. Patient's diuretics have been cut back. MIC inhibitor was held. Patient is on ceftazidime. Will see how the patient progresses. Pulmonary was consulted. Care was discussed with the patient. at the bedside. Will follow. MMODL / IJN: [id number] /
[2017-05-13] LABS: Glucose,Whole Blood 45 mg/dL (75-99)
[2017-05-13] LABS: Glucose,Whole Blood 43 mg/dL (75-99)
[2017-05-13] MEDS ORDERED: DEXTROSE 10 % IN WATER 250 ML IV STA (00:07)
[2017-05-13 00:10] LABS: Glucose,Whole Blood 105 mg/dL (75-99)
[2017-05-13 01:03] LABS: Calcium 8.9 mg/dL (8.4-10.2); Potassium 5.2 mmol/L (3.5-5.1)
[2017-05-13 01:50] LABS: Glucose,Whole Blood 64 mg/dL (75-99)
[2017-05-13 02:06] LABS: Glucose,Whole Blood 60 mg/dL (75-99)
[2017-05-13 02:17] LABS: Glucose,Whole Blood 98 mg/dL (75-99)
[2017-05-13] MEDS ORDERED: DEXTROSE 10% IN WATER 1,000 ML in EMPTY BAG 1 BAG IV SCH (02:45)
[2017-05-13] MEDS: METOCLOPRAMIDE 5 MG/ML 2 ML VIAL IVP PRN (03:15)
[2017-05-13] MEDS: guaiFENesin-DM 100-10MG/5ML 10 ML CUP PO PRN ×2 (03:27→13:17)
[2017-05-13 03:58] LABS: Glucose,Whole Blood 90 mg/dL (75-99)
[2017-05-13 06:08] LABS: Glucose,Whole Blood 91 mg/dL (75-99)
[2017-05-13 06:30] LABS: Calcium 8.8 mg/dL (8.4-10.2); Potassium 5.9 mmol/L (3.5-5.1)
[2017-05-13 06:33] LABS: Anisocytosis Slight; Basophils % (A) 0 %; CH 25.9; CHCM 28.5; Eosinophils % (A) 0 %; HCT 28.5 % (39.0-53.0); HDW 2.71; HGB 8.4 gm/dL (13.0-17.5); Hypochromasia Marked; Luc # (Auto) 0.11; Luc % (Auto) 1; Lymphocytes # (A) 0.3 k/uL (1.0-4.8); Lymphocytes % (A) 3 %; MCHC 29.5 g/dL (31.0-37.0); MCV 91.5 fL (80.0-100.0); Mean Platelet Volume 9.6; Monocytes # (A) 0.3 k/uL (0-1.0); Monocytes % (A) 4 %; Neutrophils # (A) 8.2 k/uL (1.3-7.7); Neutrophils % (A) 92 %; RBC 3.12 m/uL (4.30-5.90); RDW 16.2 % (11.5-15.5); WBC 8.9 k/uL (3.8-10.6); WBC (Perox) 9.32
[2017-05-13] MEDS: FERROUS SULFATE 325 MG TAB PO SCH ×2 (06:50→16:17)
[2017-05-13] MEDS: HYDROcodone/APAP 7.5-325MG 1 EACH TAB PO PRN ×2 (06:50→13:16)
[2017-05-13] MEDS: IPRATROPIUM-ALBUTEROL 3 ML NEB INHALATION SCH ×4 (07:32→19:09)
[2017-05-13 08:04] LABS: Glucose,Whole Blood 91 mg/dL (75-99)
[2017-05-13] MEDS ORDERED: INSULIN REGULAR 100 UNIT/ML VIAL IV ONE (09:36)
[2017-05-13] MEDS ORDERED: DEXTROSE 50%-WATER 50 ML SYRINGE IVP STA (09:37)
--- NOTE | 2017-05-13 10:07 | P.PN ---
Subjective Patient is seen in follow-up for acute kidney injury on chronic kidney disease. Patient has chronic kidney disease stage IIIB secondary to nephrosclerosis and diabetic kidney disease with baseline creatinine near 2. His creatinine is up to 4.6 today. Diuretics have been discontinued. Patient appears quite lethargic and falls asleep while having a conversation for short duration of time. Oral intake is poor. Blood sugars were running low yesterday but are improved. He is maintained on D10 drip. He has been voiding. No hematuria or dysuria. Complains of chills. Vital signs are stable. General: The patient appeared well nourished and normally developed. HEENT: Head exam is unremarkable. Neck is without jugular venous distension. LUNGS: Lungs are clear to auscultation and percussion. Breath sounds decreased. HEART: Rate and Rhythm are regular. First and second heart sounds normal. No murmurs, rubs or gallops. ABDOMEN: Abdominal exam reveals normal bowel sounds. Non-tender and non- distended. No evidence of peritonitis. EXTREMITITES: No clubbing, cyanosis, or edema. Objective - Vital Signs Vital signs: Vital Signs Temp 98.6 F 05/13/17 00:00 Pulse 70 05/13/17 07:45 Resp 18 05/13/17 07:32 BP 109/75 05/13/17 00:00 Pulse Ox 93 L 05/13/17 00:00 Intake & Output 05/12/17 05/13/17 05/13/17 18:59 06:59 18:59 Intake Total 280 820 Output Total 700 750 Balance -420 70 Intake: IV 180 .9 80 cefTAZidime 1 gm In 100 Sodium Chloride 0.9% 50 ml @ 100 mls/hr IVPB Q8HR [facility] Rx#:[id number] Intake, IV Titration 120 Amount Dextrose 10% in Water 1, 120 000 ml In Empty Bag 1 bag @ 40 mls/hr IV .Q24H [facility] Rx#:[id number] Oral 100 700 Output: Urine 700 750 Other: Voiding Method Toilet # Voids 1 3 - Labs CBC & Chem 7: 05/13/17 05:43 05/13/17 05:40 Labs: Abnormal Lab Results - Last 24 Hours (Table) 05/12/17 05/12/17 05/12/17 Range/Units 05:08 05:08 11:47 RBC (4.30-5.90) m/uL Hgb (13.0-17.5) gm/dL Hct (39.0-53.0) % MCHC (31.0-37.0) g/dL RDW (11.5-15.5) % Plt Count (150-450) k/uL Neutrophils # (1.3-7.7) k/uL Lymphocytes # (1.0-4.8) k/uL Sodium (137-145) mmol/L Potassium (3.5-5.1) mmol/L Carbon Dioxide (22-30) mmol/L BUN (9-20) mg/dL Creatinine (0.66-1.25) mg/dL Glucose (74-99) mg/dL POC Glucose (mg/dL) 60 L (75-99) mg/dL Iron 11 L 9 L (49-181) ug/dL Iron Saturation 3.45 L (15.00-50.00) 05/12/17 05/12/17 05/12/17 Range/Units 17:23 17:51 20:30 RBC (4.30-5.90) m/uL Hgb (13.0-17.5) gm/dL Hct (39.0-53.0) % MCHC (31.0-37.0) g/dL RDW (11.5-15.5) % Plt Count (150-450) k/uL Neutrophils # (1.3-7.7) k/uL Lymphocytes # (1.0-4.8) k/uL Sodium (137-145) mmol/L Potassium (3.5-5.1) mmol/L Carbon Dioxide (22-30) mmol/L BUN (9-20) mg/dL Creatinine (0.66-1.25) mg/dL Glucose (74-99) mg/dL POC Glucose (mg/dL) 39 L 149 H 67 L (75-99) mg/dL Iron (49-181) ug/dL Iron Saturation (15.00-50.00) 05/12/17 05/12/17 05/12/17 Range/Units 20:51 21:06 23:54 RBC (4.30-5.90) m/uL Hgb (13.0-17.5) gm/dL Hct (39.0-53.0) % MCHC (31.0-37.0) g/dL RDW (11.5-15.5) % Plt Count (150-450) k/uL Neutrophils # (1.3-7.7) k/uL Lymphocytes # (1.0-4.8) k/uL Sodium (137-145) mmol/L Potassium (3.5-5.1) mmol/L Carbon Dioxide (22-30) mmol/L BUN (9-20) mg/dL Creatinine (0.66-1.25) mg/dL Glucose (74-99) mg/dL POC Glucose (mg/dL) 61 L 71 L 43 L (75-99) mg/dL Iron (49-181) ug/dL Iron Saturation (15.00-50.00) 05/12/17 05/13/17 05/13/17 Range/Units 23:57 00:08 00:31 RBC (4.30-5.90) m/uL Hgb (13.0-17.5) gm/dL Hct (39.0-53.0) % MCHC (31.0-37.0) g/dL RDW (11.5-15.5) % Plt Count (150-450) k/uL Neutrophils # (1.3-7.7) k/uL Lymphocytes # (1.0-4.8) k/uL Sodium 135 L (137-145) mmol/L Potassium 5.2 H (3.5-5.1) mmol/L Carbon Dioxide 16 L (22-30) mmol/L BUN 85 H* (9-20) mg/dL Creatinine 4.30 H (0.66-1.25) mg/dL Glucose 66 L (74-99) mg/dL POC Glucose (mg/dL) 45 L 105 H (75-99) mg/dL Iron (49-181) ug/dL Iron Saturation (15.00-50.00) 05/13/17 05/13/17 05/13/17 Range/Units 01:49 02:05 05:40 RBC (4.30-5.90) m/uL Hgb (13.0-17.5) gm/dL Hct (39.0-53.0) % MCHC (31.0-37.0) g/dL RDW (11.5-15.5) % Plt Count (150-450) k/uL Neutrophils # (1.3-7.7) k/uL Lymphocytes # (1.0-4.8) k/uL Sodium 134 L (137-145) mmol/L Potassium 5.9 H (3.5-5.1) mmol/L Carbon Dioxide 17 L (22-30) mmol/L BUN 91 H* (9-20) mg/dL Creatinine 4.60 H (0.66-1.25) mg/dL Glucose (74-99) mg/dL POC Glucose (mg/dL) 64 L 60 L (75-99) mg/dL Iron (49-181) ug/dL Iron Saturation (15.00-50.00) 05/13/17 Range/Units 05:43 RBC 3.12 L (4.30-5.90) m/uL Hgb 8.4 L (13.0-17.5) gm/dL Hct 28.5 L (39.0-53.0) % MCHC 29.5 L (31.0-37.0) g/dL RDW 16.2 H (11.5-15.5) % Plt Count 107 L (150-450) k/uL Neutrophils # 8.2 H (1.3-7.7) k/uL Lymphocytes # 0.3 L (1.0-4.8) k/uL Sodium (137-145) mmol/L Potassium (3.5-5.1) mmol/L Carbon Dioxide (22-30) mmol/L BUN (9-20) mg/dL Creatinine (0.66-1.25) mg/dL Glucose (74-99) mg/dL POC Glucose (mg/dL) (75-99) mg/dL Iron (49-181) ug/dL Iron Saturation (15.00-50.00) Microbiology - Last 24 Hours (Table) 05/11/17 00:50 Blood Culture - Preliminary Blood No Growth after 48 hours Assessment and Plan Plan: Assessment: #1. Nonoliguric acute kidney injury secondary to ATN secondary to pneumonia and further worsened with the use of diuretics and MIC inhibitor. Postvoid residual was 170. Creatinine up to 4.6 today. #2. Chronic kidney disease stage IIIB secondary to nephrosclerosis and diabetic kidney disease with baseline creatinine near 2. #3. Hyperkalemia secondary to acute kidney injury and metabolic acidosis. #4. Metabolic acidosis secondary to acute kidney injury. #5. Pneumonia. #6. Anemia with severe iron deficiency. Plan: Start D5 normal saline to be run at 60 mL an hour. Insert [place] Dios catheter for accurate I's and os. At oral sodium bicarbonate 1300 mg 3 times daily. 10 units of IV regular insulin with amp of D50. Recheck potassium level at noon today. Further set 125 mg IV daily for 3 days. First dose today. Check ABG. Repeat electrolytes again in the morning. I did discuss the potential need for renal replacement therapy if renal function continues to worsen.
[2017-05-13] MEDS ORDERED: DEXTROSE 5%-0.9% NACL 1,000 ML IV SCH (10:15)
[2017-05-13 10:17] LABS: Glucose,Whole Blood 96 mg/dL (75-99)
[2017-05-13] MEDS: ASPIRIN 81 MG PO SCH ×2 (10:20→20:33)
[2017-05-13] MEDS: CLOPIDOGREL 75 MG TAB PO SCH (10:21)
[2017-05-13] MEDS: CARVEDILOL 12.5 MG TAB PO SCH ×2 (10:21→20:34)
[2017-05-13] MEDS: ENOXAPARIN 30 MG/0.3 ML SYRINGE SQ SCH (10:21)
[2017-05-13] MEDS: hydrALAZINE HCL 25 MG TAB PO SCH ×3 (10:22→20:34)
[2017-05-13] MEDS: VITAMIN E (DL,TOCOPHERYL ACET) 400 UNIT CAP PO SCH (10:22)
[2017-05-13] MEDS: INSULIN NPH 300 UNIT/3 ML VIAL SQ SCH (10:22)
[2017-05-13] MEDS: ISOSORBIDE MONONITRATE ER 30 MG TAB.ER.24H PO SCH (10:22)
[2017-05-13] MEDS: SODIUM FERRIC GLUCONAT-SUCROSE 125 MG in SODIUM CHLORIDE 0.9% 100 ML IVPB SCH ×2 (10:31→13:04)
[2017-05-13 11:02] LABS: ABG HCO3 19 mmol/L (21-25); ABG PCO2 50 mmHg (35-45); ABG PO2 91 mmHg (83-108)
[2017-05-13 11:03] LABS: ABG Base Excess -7.7 mmol/L; ABG TCO2 21 mmol/L (19-24)
--- NOTE | 2017-05-13 11:18 | P.CNPUL ---
History of Present Illness Consult date: 05/13/17 Reason for consult: dyspnea History of present illness: A 67-year-old male patient who is being seen in consultation upon the request of Dr. Jerez for worsening shortness of breath. At the time of my evaluation , the patient was noted to be quite lethargic and somnolent. He was arousable. He had increased cough and congestion. He had diminished breath sounds throughout his lung pearson bilaterally. He was placed on oxygen at 3 L/m nasal cannula. A blood gas was ordered and it showed a pH of 7.2 with a pCO2 of 50 and a pO2 of 78 at 3 L/m nasal cannula. The patient was also found to be in acute on top of chronic renal failure with an underlying metabolic acidosis and acute hyperkalemia with a potassium level of 5.9. For that reason I made recommendations for this patient to be transferred to the intensive care unit. I was also told that the patient was having hypoglycemic events and he was placed on D5 half-normal saline at rate of 70 and an hour. This patient has history of COPD. The patient is an ex-smoker. His undergone coronary artery bypass surgery 2 years back and [facility] for underlying coronary artery disease. He is also known to have ischemic artery myopathy and has had an AICD in place. He suffers from chronic renal failure. He has hypertension and hyperlipidemia and diabetes mellitus. He presented to the hospital because of increased cough congestion and worsening shortness of breath. No major swelling in lower extremities. No orthopnea. No peripheral edema. His white cell count was nonelevated. His hemoglobin was low and the patient has chronic anemia with a hemoglobin of 8.3-8.4 and he was given IV iron. He was being diuresis with IV Lasix and diuretics got placed on hold as the patient developed an acute on top of chronic renal failure. The patient is also covered with broad-spectrum antibiotics and is currently on IV Fortaz. Review of Systems Constitutional: Reports daytime sleepiness, Reports fatigue, Reports lethargy, Reports weakness Eyes: denies blurred vision, denies bulging eye, denies decreased vision Ears: deny: decreased hearing, ear discharge, earache Ears, nose, mouth and throat: Denies headache, Denies sore throat Cardiovascular: Reports decreased exercise tolerance, Reports shortness of breath Respiratory: Reports cough, Reports cough with sputum, Reports dyspnea, Reports wheezing Gastrointestinal: Denies abdominal pain, Denies diarrhea, Denies nausea, Denies vomiting Genitourinary: Reports as per HPI Musculoskeletal: Reports low back pain Musculoskeletal: absent: ankle pain, ankle stiffness, ankle swelling Integumentary: Denies pruritus, Denies rash Neurological: Reports balance difficulties, Reports confusion, Reports gait dysfunction, Reports weakness Psychiatric: Denies anxiety, Denies depression Endocrine: Denies fatigue, Denies weight change Past Medical History Past Medical History: Coronary Artery Disease (CAD), Chest Pain / Angina, Heart Failure, Diabetes Mellitus, Hypertension, Myocardial Infarction ([place]), Renal Disease Additional Past Medical History / Comment(s): Coronary artery disease, single chamber AICD/pacer, CHF/ischemic cardiomyopathy, chronic renal failure, diabetes mellitus, history of right elbow bursitis, gout, previous myocardial infarction, COPD, chronic anemia, history of hyperkalemia, hyperlipidemia, hypertension, peripheral vascular disease, secondary pulmonary hypertension, previous history of GI bleeding, history of iron deficiency. Last Myocardial Infarction Date:: 10/05/15 History of Any Multi-Drug Resistant Organisms: None Reported Past Surgical History: Coronary Bypass/CABG, Heart Catheterization, Heart Catheterization With Stent, Hernia Repair, Pacemaker Additional Past Surgical History / Comment(s): 10/22/15 upper extremity venogram , 2011 triple bypass at [facility], 2006 PCI with stent cx, 09/2015 PCI with stent to LAD, 10/2015 [facility] treat medically, dual chamber pacemaker initial insertion 2004 and replaced in 2011, umbillical hernia repair, several nose sx d/t 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 Defibriliator in january 2016 Past Anesthesia/Blood Transfusion Reactions: No Reported Reaction Date of Last Stent Placement:: 09/2015 Type of Cardiac Device: Permanent Pacemaker Device Placement Date:: 2011 Past Psychological History: No Psychological Hx Reported Additional Psychological History / Comment(s): Pt states he resides with [facility]. He is independent. He uses no assistive device. He drives. He has no home care use. Smoking Status: Former smoker Past Alcohol Use History: Daily Additional Past Alcohol Use History / Comment(s): smoked >40 years quit 09-17-12 , drinks 2 beer daily Past Drug Use History: None Reported - Past Family History Father Family Medical History: CVA/TIA Additional Family Medical History / Comment(s): age 83 had several strokes Mother Family Medical History: Cancer, Liver Disease, Osteoarthritis (OA) Additional Family Medical History / Comment(s): mom passed at age 91, hx breast cancer, emphysema (pt stated she never smoked) Medications and Allergies Home Medications Medication Instructions Recorded Confirmed Type Folic Acid 0.4 mg PO HS 09/10/15 05/11/17 History Nitroglycerin Sl Tabs [Nitrostat] 0.4 mg SUBLINGUAL Q5M PRN 09/10/15 05/11/17 History Clopidogrel [Plavix] 75 mg PO DAILY #30 tab 09/13/15 05/11/17 Rx Aspirin EC [Ecotrin Low Dose] 81 mg PO BID 01/22/16 05/11/17 History Atorvastatin [Lipitor] 40 mg PO HS 07/05/16 05/11/17 History HYDROcodone/APAP 7.5-325MG [[place] 1 tab PO Q6HR PRN 07/05/16 05/11/17 History 7.5-325] Allopurinol [Zyloprim] 100 mg PO DAILY #30 tab 07/08/16 05/11/17 Rx Lisinopril [Zestril] 20 mg PO DAILY 08/04/16 05/11/17 History Insulin NPH Human Isophane 12 unit SQ HS 01/06/17 05/11/17 History [Novolin N] hydrALAZINE HCL [Apresoline] 25 mg PO BID 01/06/17 05/11/17 History Carvedilol [Coreg*] 12.5 mg PO HS 01/25/17 05/11/17 History Carvedilol [Coreg*] 25 mg PO DAILY 01/25/17 05/11/17 History Omeprazole [PriLOSEC] 40 mg PO DAILY 01/25/17 05/11/17 History Vitamin E (Dl,Tocopheryl Acet) 400 unit PO DAILY 01/25/17 05/11/17 History [Vitamin E] glipiZIDE [Glucotrol] 10 mg PO BID 01/25/17 05/11/17 History Ferrous Sulfate [Iron (65 MG 325 mg PO BID-W/MEALS #60 tab 01/27/17 05/11/17 Rx Elemental)] Torsemide [Demadex] 20 mg PO DAILY #30 tab 01/27/17 05/11/17 Rx Acetaminophen [Tylenol Extra 1,000 mg PO TID 05/11/17 05/11/17 History Strength] Clindamycin HCl [Clindamycin HCl] 300 mg PO Q8H 05/11/17 05/11/17 History Allergies Allergy/AdvReac Type Severity Reaction Status Date / Time cephalexin monohydrate AdvReac Unknown Verified 05/11/17 08:01 [From Keflex] Penicillins AdvReac Nausea & Verified 05/11/17 08:01 Vomiting Sulfa (Sulfonamide AdvReac Nausea & Verified 05/11/17 08:01 Antibiotics) Vomiting Physical Exam Vitals: Vital Signs Temp Pulse Pulse Resp BP Pulse Ox 05/13/17 07:45 70 05/13/17 07:32 66 18 05/13/17 04:00 18 05/13/17 00:00 98.6 F 65 18 109/75 93 L 05/12/17 21:53 61 05/12/17 21:41 60 94 L 05/12/17 20:00 102.4 F H 64 20 133/70 95 05/12/17 17:16 101.5 F H 62 22 138/67 90 L 05/12/17 16:03 76 05/12/17 15:54 68 05/12/17 12:40 82 05/12/17 12:28 80 18 05/12/17 12:00 98.6 F 64 136/70 90 L Intake and Output 05/12/17 05/13/17 05/13/17 22:59 06:59 14:59 Intake Total 700 120 Output Total 650 500 Balance 50 -380 Intake: Intake, IV Titration 120 Amount Dextrose 10% in Water 1, 120 000 ml In Empty Bag 1 bag @ 40 mls/hr IV .Q24H [facility] Rx#:[id number] Oral 700 Output: Urine 650 500 Other: Voiding Method Toilet Toilet # Voids 1 3 Gen. appearance, the patient is sick looking, in mild degree of respirator distress, lethargic and at times confused and slow in answering questions.Head exam was generally normal. There was no scleral icterus or corneal arcus. Mucous membranes were moist. Mucous membranes are dry. No thrush.Neck was supple and without jugular venous distension, thyromegaly, or carotid bruits. Carotids were easily palpable bilaterally. There was no adenopathy. Lung sounds are diminished specially in the right lung base. There is scattered rhonchi's. There is scattered expiratory wheezes throughout the lung pearson bilaterally.Cardiac exam revealed the PMI to be normally situated and sized. The rhythm was regular and no extrasystoles were noted during several minutes of auscultation. The first and second heart sounds were normal and physiologic splitting of the second heart sound was noted. There were no murmurs, rubs, clicks, or gallops.Abdominal exam revealed normal bowel sounds. The abdomen was soft, non-tender, and without masses, organomegaly, or appreciable enlargement of the abdominal aorta. Extremities reveal trace edema and there is no cyanosis or clubbing and pulses are diminished otherwise they're present. Neurologically, the patient's exam is nonfocal. He is at times confused and is slow in answering questions. For the most part there is full range of motion without any focal neurological deficit.Examination of the skin revealed no evidence of significant rashes, suspicious appearing nevi or other concerning lesions. Results - Laboratory Findings CBC and BMP: 05/13/17 05:43 05/13/17 05:40 PT/INR, D-dimer PT 11.7 sec (9.0-12.0) 05/11/17 00:50 INR 1.2 (<1.2) H 05/11/17 00:50 Abnormal lab findings: Abnormal Labs 05/11/17 05/11/17 05/11/17 00:50 00:50 00:50 RBC 3.06 L Hgb 8.3 L Hct 27.6 L MCHC 30.2 L RDW 16.3 H Plt Count 91 L Neutrophils # Lymphocytes # 0.2 L INR Sodium Potassium Chloride 109 H Carbon Dioxide 20 L BUN 65 H Creatinine 3.20 H Glucose 129 H POC Glucose (mg/dL) Phosphorus Iron Iron Saturation Troponin I 0.068 H* Total Protein 5.3 L Albumin 2.8 L Urine Protein Urine Glucose (UA) Amorphous Sediment Hyaline Casts Urine Mucus 05/11/17 05/11/17 05/11/17 00:50 01:15 08:36 RBC Hgb Hct MCHC RDW Plt Count Neutrophils # Lymphocytes # INR 1.2 H Sodium Potassium Chloride Carbon Dioxide BUN Creatinine Glucose POC Glucose (mg/dL) Phosphorus Iron Iron Saturation Troponin I 0.063 H* Total Protein Albumin Urine Protein 1+ H Urine Glucose (UA) 1+ H Amorphous Sediment Rare H Hyaline Casts 23 H Urine Mucus Rare H 05/11/17 05/11/17 05/11/17 11:35 13:17 16:24 RBC Hgb Hct MCHC RDW Plt Count Neutrophils # Lymphocytes # INR Sodium Potassium Chloride Carbon Dioxide BUN Creatinine Glucose POC Glucose (mg/dL) 126 H 100 H Phosphorus Iron Iron Saturation Troponin I 0.073 H* Total Protein Albumin Urine Protein Urine Glucose (UA) Amorphous Sediment Hyaline Casts Urine Mucus 05/12/17 05/12/17 05/12/17 04:44 04:56 05:08 RBC Hgb Hct MCHC RDW Plt Count Neutrophils # Lymphocytes # INR Sodium Potassium Chloride Carbon Dioxide 20 L BUN 75 H Creatinine 3.70 H Glucose 101 H POC Glucose (mg/dL) 37 L 122 H Phosphorus Iron Iron Saturation Troponin I Total Protein Albumin Urine Protein Urine Glucose (UA) Amorphous Sediment Hyaline Casts Urine Mucus 05/12/17 05/12/17 05/12/17 05:08 05:08 05:46 RBC Hgb Hct MCHC RDW Plt Count Neutrophils # Lymphocytes # INR Sodium Potassium Chloride Carbon Dioxide BUN Creatinine Glucose POC Glucose (mg/dL) 102 H Phosphorus Iron 11 L 9 L Iron Saturation 3.45 L Troponin I Total Protein Albumin Urine Protein Urine Glucose (UA) Amorphous Sediment Hyaline Casts Urine Mucus 05/12/17 05/12/17 05/12/17 11:47 17:23 17:51 RBC Hgb Hct MCHC RDW Plt Count Neutrophils # Lymphocytes # INR Sodium Potassium Chloride Carbon Dioxide BUN Creatinine Glucose POC Glucose (mg/dL) 60 L 39 L 149 H Phosphorus Iron Iron Saturation Troponin I Total Protein Albumin Urine Protein Urine Glucose (UA) Amorphous Sediment Hyaline Casts Urine Mucus 05/12/17 05/12/17 05/12/17 20:30 20:51 21:06 RBC Hgb Hct MCHC RDW Plt Count Neutrophils # Lymphocytes # INR Sodium Potassium Chloride Carbon Dioxide BUN Creatinine Glucose POC Glucose (mg/dL) 67 L 61 L 71 L Phosphorus Iron Iron Saturation Troponin I Total Protein Albumin Urine Protein Urine Glucose (UA) Amorphous Sediment Hyaline Casts Urine Mucus 05/12/17 05/12/17 05/13/17 23:54 23:57 00:08 RBC Hgb Hct MCHC RDW Plt Count Neutrophils # Lymphocytes # INR Sodium Potassium Chloride Carbon Dioxide BUN Creatinine Glucose POC Glucose (mg/dL) 43 L 45 L 105 H Phosphorus Iron Iron Saturation Troponin I Total Protein Albumin Urine Protein Urine Glucose (UA) Amorphous Sediment Hyaline Casts Urine Mucus 05/13/17 05/13/17 05/13/17 00:31 01:49 02:05 RBC Hgb Hct MCHC RDW Plt Count Neutrophils # Lymphocytes # INR Sodium 135 L Potassium 5.2 H Chloride Carbon Dioxide 16 L BUN 85 H* Creatinine 4.30 H Glucose 66 L POC Glucose (mg/dL) 64 L 60 L Phosphorus Iron Iron Saturation Troponin I Total Protein Albumin Urine Protein Urine Glucose (UA) Amorphous Sediment Hyaline Casts Urine Mucus 05/13/17 05/13/17 05/13/17 05:40 05:40 05:43 RBC 3.12 L Hgb 8.4 L Hct 28.5 L MCHC 29.5 L RDW 16.2 H Plt Count 107 L Neutrophils # 8.2 H Lymphocytes # 0.3 L INR Sodium 134 L Potassium 5.9 H Chloride Carbon Dioxide 17 L BUN 91 H* Creatinine 4.60 H Glucose POC Glucose (mg/dL) Phosphorus 7.3 H Iron Iron Saturation Troponin I Total Protein Albumin Urine Protein Urine Glucose (UA) Amorphous Sediment Hyaline Casts Urine Mucus - Diagnostic Findings Chest x-ray: image reviewed Assessment and Plan Plan: Assessment 1 acute left lung pneumonia is suspected, yet the patient's respiratory failure is multifactorial and a contributing factors include pneumonia, COPD, heart failure and metabolic acidosis. 2 acute COPD exacerbation secondary to left lung pneumonia with a component hypercapnic respiratory failure which seems to be of an acute in nature 3 acute hypoxic respiratory failure secondary to above 4 congestion heart failure, ischemic cardiomyopathy and the most recent echocardiogram shows a low normal ejection fraction with an EF around 50-55%, severely dilated LA, severe pulmonary hypertension with a PA pressure of 68 5 coronary artery disease with previous coronary artery bypass surgery 6 history of cardiac block status post pacemaker insertion/AICD insertion 7 acute on top of chronic renal failure, likely secondary to diuresis 8 chronic renal failure with stage III to 4 chronic kidney disease 9 diabetes mellitus 10 hypertension 11 hyperlipidemia. 12 hyperkalemia 15 peripheral vascular disease 14 previous history of GI bleed 15 chronic iron deficiency 16 metabolic acidosis currently on oral bicarb Plan We'll move the patient to the intensive care unit. The practice to support the breathing with a BiPAP at a pressure of 10/5 and FiO2 will be adjusted to maintain a saturation above 90%. Meanwhile, the patient was started on a D5 with 3 A of bicarb infusion to balanced underlying metabolic acidosis and the bicarb deficit. This should help this patient's breathing knowing that the blood gases showing a combination of metabolic and respiratory acidosis. In terms of his pneumonia, continued IV Fortaz, add Levaquin, obtain a CAT scan chest without contrast and hold the diuretics for now. Put the patient on DuoNeb nebulized treatment [id number]. Put the patient IV Solu Medrol 60 every 6 hours. Monitor the blood sugar and use insulin if needed. She would' ve acute hyperkalemia better nephrology. The patient be given D50 insulin for a potassium shift. May need Kayexalate if the potassium remains elevated. Monitor hemoglobin the patient has already received IV iron. We'll continue to follow and take further recommendations based on the progress. Condition is critical. Monitor the patient to the intensive care unit.
--- NOTE | 2017-05-13 12:05 | P.PN ---
Subjective Progress Note Date: 05/13/17 Principal diagnosis: Shortness of breath This is a 67-year-old gentleman with known history of coronary artery disease and prior bypass surgery, prior AICD implantation, hypertension, diabetes, hyperlipidemia, who presented to the hospital with symptoms of generally not feeling well and associated dyspnea. Patient also had a productive cough. Patient also has history of PCI performed by Dr. Hua, and history of chronic kidney disease. Patient was treated with IV Lasix for mild congestive heart failure and also was on antibiotics for a pneumonia. He was seen and examined this morning, states that his breathing is improving, cough much more productive today overall. Blood sugars this morning dropped down to 37, and states he did not feel well at all at that time but however now is feeling more back to himself. Blood pressure 144/78 heart rate in the 60s, low- grade temperature of 100.1. Potassium 4.9, BUN 75, creatinine 3.7. Echocardiogram with Doppler study was performed which revealed an ejection fraction of 50-55%, moderate to severe pulmonary hypertension. 05/13/2017 Patient seen and examined this morning, became very short of breath through the night, continues to feel significantly short of breath this morning. Much more lethargic today as well. Patient was placed on BiPAP to maintain saturations above 90%. Blood gases were also obtained, which revealed a pH of 7.2, pCO2 of 50, pO2 of 78 on 3l O2. Patient was seen in consultation by Dr. Huddleston and arrangements are being made for him to be transferred to the intensive care unit. Potassium this morning 5.9, BUN 91, creatinine 4.6. Objective - Vital Signs Vital signs: Vital Signs Temp 98.0 F 05/13/17 08:00 Pulse 83 05/13/17 08:00 Resp 18 05/13/17 07:32 BP 133/64 05/13/17 08:00 Pulse Ox 95 05/13/17 08:00 Intake & Output 05/12/17 05/13/17 05/13/17 18:59 06:59 18:59 Intake Total 280 820 Output Total 700 750 Balance -420 70 Intake: IV 180 .9 80 cefTAZidime 1 gm In 100 Sodium Chloride 0.9% 50 ml @ 100 mls/hr IVPB Q8HR [facility] Rx#:[id number] Intake, IV Titration 120 Amount Dextrose 10% in Water 1, 120 000 ml In Empty Bag 1 bag @ 40 mls/hr IV .Q24H [facility] Rx#:[id number] Oral 100 700 Output: Urine 700 750 Other: Voiding Method Toilet # Voids 1 3 - Exam PHYSICAL EXAMINATION: HEENT: Head is atraumatic, normocephalic. Pupils equal, round. Neck is supple. There is no elevated jugular venous pressure. HEART EXAMINATION: R S1 and S2 systolic murmur is heard. CHEST EXAMINATION: Lungs reveal scattered coarse rhonchi and wheezing throughout with diminished air entry bilaterally. ABDOMEN: Soft, nontender. Bowel sounds are heard. No organomegaly noted. EXTREMITIES: 2+ peripheral pulses with evidence of peripheral edema and no calf tenderness noted. NEUROLOGIC patient is awake, alert and oriented -3. . - Labs CBC & Chem 7: 05/13/17 05:43 05/13/17 05:40 Labs: Abnormal Lab Results - Last 24 Hours (Table) 05/12/17 05/12/17 05/12/17 Range/Units 05:08 05:08 11:47 RBC (4.30-5.90) m/uL Hgb (13.0-17.5) gm/dL Hct (39.0-53.0) % MCHC (31.0-37.0) g/dL RDW (11.5-15.5) % Plt Count (150-450) k/uL Neutrophils # (1.3-7.7) k/uL Lymphocytes # (1.0-4.8) k/uL ABG pH (7.35-7.45) ABG pCO2 (35-45) mmHg ABG HCO3 (21-25) mmol/L Sodium (137-145) mmol/L Potassium (3.5-5.1) mmol/L Carbon Dioxide (22-30) mmol/L BUN (9-20) mg/dL Creatinine (0.66-1.25) mg/dL Glucose (74-99) mg/dL POC Glucose (mg/dL) 60 L (75-99) mg/dL Phosphorus (2.5-4.5) mg/dL Iron 11 L 9 L (49-181) ug/dL Iron Saturation 3.45 L (15.00-50.00) 05/12/17 05/12/17 05/12/17 Range/Units 17:23 17:51 20:30 RBC (4.30-5.90) m/uL Hgb (13.0-17.5) gm/dL Hct (39.0-53.0) % MCHC (31.0-37.0) g/dL RDW (11.5-15.5) % Plt Count (150-450) k/uL Neutrophils # (1.3-7.7) k/uL Lymphocytes # (1.0-4.8) k/uL ABG pH (7.35-7.45) ABG pCO2 (35-45) mmHg ABG HCO3 (21-25) mmol/L Sodium (137-145) mmol/L Potassium (3.5-5.1) mmol/L Carbon Dioxide (22-30) mmol/L BUN (9-20) mg/dL Creatinine (0.66-1.25) mg/dL Glucose (74-99) mg/dL POC Glucose (mg/dL) 39 L 149 H 67 L (75-99) mg/dL Phosphorus (2.5-4.5) mg/dL Iron (49-181) ug/dL Iron Saturation (15.00-50.00) 05/12/17 05/12/17 05/12/17 Range/Units 20:51 21:06 23:54 RBC (4.30-5.90) m/uL Hgb (13.0-17.5) gm/dL Hct (39.0-53.0) % MCHC (31.0-37.0) g/dL RDW (11.5-15.5) % Plt Count (150-450) k/uL Neutrophils # (1.3-7.7) k/uL Lymphocytes # (1.0-4.8) k/uL ABG pH (7.35-7.45) ABG pCO2 (35-45) mmHg ABG HCO3 (21-25) mmol/L Sodium (137-145) mmol/L Potassium (3.5-5.1) mmol/L Carbon Dioxide (22-30) mmol/L BUN (9-20) mg/dL Creatinine (0.66-1.25) mg/dL Glucose (74-99) mg/dL POC Glucose (mg/dL) 61 L 71 L 43 L (75-99) mg/dL Phosphorus (2.5-4.5) mg/dL Iron (49-181) ug/dL Iron Saturation (15.00-50.00) 05/12/17 05/13/17 05/13/17 Range/Units 23:57 00:08 00:31 RBC (4.30-5.90) m/uL Hgb (13.0-17.5) gm/dL Hct (39.0-53.0) % MCHC (31.0-37.0) g/dL RDW (11.5-15.5) % Plt Count (150-450) k/uL Neutrophils # (1.3-7.7) k/uL Lymphocytes # (1.0-4.8) k/uL ABG pH (7.35-7.45) ABG pCO2 (35-45) mmHg ABG HCO3 (21-25) mmol/L Sodium 135 L (137-145) mmol/L Potassium 5.2 H (3.5-5.1) mmol/L Carbon Dioxide 16 L (22-30) mmol/L BUN 85 H* (9-20) mg/dL Creatinine 4.30 H (0.66-1.25) mg/dL Glucose 66 L (74-99) mg/dL POC Glucose (mg/dL) 45 L 105 H (75-99) mg/dL Phosphorus (2.5-4.5) mg/dL Iron (49-181) ug/dL Iron Saturation (15.00-50.00) 05/13/17 05/13/17 05/13/17 Range/Units 01:49 02:05 05:40 RBC (4.30-5.90) m/uL Hgb (13.0-17.5) gm/dL Hct (39.0-53.0) % MCHC (31.0-37.0) g/dL RDW (11.5-15.5) % Plt Count (150-450) k/uL Neutrophils # (1.3-7.7) k/uL Lymphocytes # (1.0-4.8) k/uL ABG pH (7.35-7.45) ABG pCO2 (35-45) mmHg ABG HCO3 (21-25) mmol/L Sodium 134 L (137-145) mmol/L Potassium 5.9 H (3.5-5.1) mmol/L Carbon Dioxide 17 L (22-30) mmol/L BUN 91 H* (9-20) mg/dL Creatinine 4.60 H (0.66-1.25) mg/dL Glucose (74-99) mg/dL POC Glucose (mg/dL) 64 L 60 L (75-99) mg/dL Phosphorus (2.5-4.5) mg/dL Iron (49-181) ug/dL Iron Saturation (15.00-50.00) 05/13/17 05/13/17 05/13/17 Range/Units 05:40 05:43 10:28 RBC 3.12 L (4.30-5.90) m/uL Hgb 8.4 L (13.0-17.5) gm/dL Hct 28.5 L (39.0-53.0) % MCHC 29.5 L (31.0-37.0) g/dL RDW 16.2 H (11.5-15.5) % Plt Count 107 L (150-450) k/uL Neutrophils # 8.2 H (1.3-7.7) k/uL Lymphocytes # 0.3 L (1.0-4.8) k/uL ABG pH 7.20 L* (7.35-7.45) ABG pCO2 50 H (35-45) mmHg ABG HCO3 19 L (21-25) mmol/L Sodium (137-145) mmol/L Potassium (3.5-5.1) mmol/L Carbon Dioxide (22-30) mmol/L BUN (9-20) mg/dL Creatinine (0.66-1.25) mg/dL Glucose (74-99) mg/dL POC Glucose (mg/dL) (75-99) mg/dL Phosphorus 7.3 H (2.5-4.5) mg/dL Iron (49-181) ug/dL Iron Saturation (15.00-50.00) Microbiology - Last 24 Hours (Table) 05/11/17 00:50 Blood Culture - Preliminary Blood No Growth after 48 hours Assessment and Plan (1) Pneumonia Status: Acute (2) Renal failure (ARF), acute on chronic Status: Acute (3) AICD (automatic cardioverter/defibrillator) present Status: Acute (4) CAD (coronary artery disease) Status: Acute (5) Diabetes Status: Acute (6) Diastolic CHF, acute on chronic Status: Acute (7) HTN (hypertension) Status: Acute (8) Hyperlipemia Status: Acute Plan: From cardiology's perspective, we will continue current cardiac medications. Patient will be transferred to the intensive care unit, we will continue to follow. DNP note has been reviewed, I agree with a documented findings and plan of care. Patient was seen and examined.
[2017-05-13 12:28] LABS: Glucose,Whole Blood 140 mg/dL (75-99)
--- NOTE | 2017-05-13 12:29 | CT ---
EXAMINATION TYPE: CT chest wo con DATE OF EXAM: 05/13/2017 COMPARISON: Chest x-ray 05/11/2017 HISTORY: Pneumonia CT DLP: 777 mGycm. Automated Exposure Control for Dose Reduction was Utilized. TECHNIQUE: CT scan of the thorax is performed without IV contrast. FINDINGS: LUNGS: There is airspace disease present in the left upper lobe, air bronchograms and areas of consol idation. No pleural effusion. Motion present on the exam. Some minimal airspace disease also present in the right lower lobe. MEDIASTINUM: Lack of IV contrast is noted to limit evaluation for mediastinal and especially hilar ad enopathy. There are no definitive greater than 1 cm hilar or mediastinal lymph nodes. The heart is enlarged. Coronary artery calcifications are present. Prevascular nodes are present. No pericardial e ffusion is seen. Pulmonary artery appears prominent. OTHER: There is a defibrillator in left pectoral region, leads are present in the coronary sinus, rig ht ventricle and right atrium. Patient is post median sternotomy. Small amount of ascites present abo ut the liver. The liver appears enlarged. Spleen is enlarged. Possible punctate nonobstructive calcul i within the right kidney. Vascular calcifications are also noted. IMPRESSION: Findings compatible with patient's history of bilateral pneumonia. Follow-up to resolutio n. Cardiomegaly. Hepatosplenomegaly with ascites. Noncontrast exam. There is some motion on the exam. Correlate for possible pulmonary artery hypertension. Additional findings above, there may be some n onobstructive nephrolithiasis.
[2017-05-13] MEDS: DEXTROSE 5% IN WATER 1,000 ML with SODIUM BICARB (1 MEQ/ML) 150 ML IV SCH ×2 (12:44→21:37)
[2017-05-13] MEDS: methylPREDNISolone SOD SUCCI 125 MG/2 ML VIAL IV SCH ×2 (12:46→17:12)
[2017-05-13 14:08] LABS: Potassium 5.8 mmol/L (3.5-5.1)
[2017-05-13] MEDS ORDERED: ALPRAZolam 0.25 MG TAB PO PRN (14:10)
[2017-05-13] MEDS ORDERED: IV VANCOMYCIN PER PHARMACY 1 EACH MISC MISCELLANE PRN (14:11)
[2017-05-13] MEDS ORDERED: LEVOFLOXACIN 750MG-D5W PMX 750 MG in DEXTROSE/WATER 1 150ML.BAG IVPB STA (14:18)
[2017-05-13 14:19] LABS: Amorphous Sediment,Urine Occasional /hpf; Appearance,Urine Cloudy (Clear); Bacteria,Urine Occasional /hpf; Bilirubin,Urine Negative (Negative); Glucose,Urine (UA) Negative (Negative); Ketones,Urine Negative (Negative); Leukocyte Esterase,Urine Negative (Negative); Mucus,Urine Rare /hpf; Nitrite,Urine Negative (Negative); PH, Urine 5.5 (5.0-8.0); Particle Count 27160; Protein,Urine 3+ (Negative); RBC,Urine 3 /hpf (0-5); Specific Gravity,Urine 1.015 (1.001-1.035); UA Billing (MACRO vs. MICRO) MICRO; Urobilinogen,Urine <2.0 mg/dL (<2.0); WBC,Urine 2 /hpf (0-5)
[2017-05-13 14:55] LABS: Glucose,Whole Blood 84 mg/dL (75-99)
[2017-05-13] MEDS ORDERED: VANCOMYCIN 1,750 MG in SODIUM CHLORIDE 0.9% 250 ML IVPB ONE (15:00)
[2017-05-13] MEDS ORDERED: SODIUM BICARBONATE TAB 650 MG TAB PO SCH (16:00)
[2017-05-13 16:16] LABS: Glucose,Whole Blood 77 mg/dL (75-99)
[2017-05-13 16:51] LABS: ABG Base Excess -7.7 mmol/L; ABG HCO3 19 mmol/L (21-25); ABG PCO2 50 mmHg (35-45); ABG PH 7.21 (7.35-7.45); ABG PO2 145 mmHg (83-108); ABG TCO2 20 mmol/L (19-24)
[2017-05-13] MEDS ORDERED: SODIUM BICARB 8.4% 50 ML SYR (1 MEQ/ML) IV ONE (17:00)
[2017-05-13] MEDS: LORazepam 2 MG/ML INJ IV PRN (17:12)
[2017-05-13] MEDS ORDERED: FUROSEMIDE 10 MG/ML 4 ML VIAL IV STA (18:47)
[2017-05-13 18:52] LABS: Glucose,Whole Blood 84 mg/dL (75-99)
[2017-05-13] MEDS: ATORVASTATIN 40 MG TAB PO SCH (20:33)
[2017-05-13] MEDS: FOLIC ACID 1 MG TAB PO SCH (20:34)
[2017-05-13 20:40] LABS: Glucose,Whole Blood 91 mg/dL (75-99)
[2017-05-13] MEDS ORDERED: SODIUM CHLORIDE 0.9% 250 ML IV ONE ×2 (21:28→22:09)
[2017-05-13] MEDS ORDERED: NOREPINEPHRIN 4 MG-0.9% NS PMX 4 MG/250 ML ML IV SCH (23:15)
[2017-05-13 23:20] LABS: Glucose,Whole Blood 103 mg/dL (75-99)
[2017-05-14] MEDS: methylPREDNISolone SOD SUCCI 125 MG/2 ML VIAL IV SCH ×5 (00:05→23:47)
--- NOTE | 2017-05-14 00:50 | P.PN ---
Subjective Progress Note Date: 05/13/17 Principal diagnosis: Shortness of breath This patient is a 67-year-old male with a known history of COPD, coronary artery bypass surgery 2 years back and [facility] for underlying coronary artery disease, ischemic artery myopathy and has had an AICD in place presented to the hospital because of increased cough congestion and worsening shortness of breath.. The patient is an ex-smoker. He also has CKD, hypertension , hyperlipidemia and diabetes mellitus-2 05/13/2017 Patient was found to be having worsening short of breath and lung examination showed diminished breath sounds this morning. Patient was seen by pulmonary and ABC showed a pH of 7.2 with a pCO2 of 50 and a pO2 of 78. Patient is drowsy at this time. Patient was transferred to MICU Patient is currently on BiPAP machine and seems to be lethargic and non- arousable. Complete review of systems could not be obtained from the patient. current medications reviewed Objective - Vital Signs Vital signs: Vital Signs Temp 98.2 F 05/14/17 00:00 Pulse 59 L 05/14/17 00:00 Resp 19 05/14/17 00:00 BP 86/42 05/14/17 00:00 Pulse Ox 97 05/14/17 00:00 Intake & Output 05/13/17 05/13/17 05/14/17 06:59 18:59 06:59 Intake Total 558 378 9840 Output Total 750 200 45 Balance 70 565 965 Intake: IV 50 935 .9 50 10 Dextrose 5% in Water 1, 425 000 ml @ 125 mls/hr IV . Q9H12M AGUSTIN with Sodium Bicarb (1 Meq/ml) 150 ml Rx#:[id number] Sodium Chloride 0.9% 250 500 ml @ 500 mls/hr IV .Q30M ONE Rx#:[id number] Intake, IV Titration 120 715 75 Amount Dextrose 10% in Water 1, 120 40 000 ml In Empty Bag 1 bag @ 40 mls/hr IV .Q24H [facility]USTIN Rx#:[id number] Dextrose 5% in Water 1, 225 75 000 ml @ 125 mls/hr IV . Q9H12M AGUSTIN with Sodium Bicarb (1 Meq/ml) 150 ml Rx#:[id number] Levofloxacin 500Mg-D5w 100 Pmx 500 mg In Dextrose/ Water 1 100ml.bag @ 100 mls/hr IVPB Q48H [facility] Rx#: [id number] Sodium Ferric Gluconat- 100 Sucrose 125 mg In Sodium Chloride 0.9% 100 ml @ 100 mls/hr IVPB DAILY [facility] Rx#:[id number] Vancomycin 1,750 mg In 250 Sodium Chloride 0.9% 250 ml @ 125 mls/hr IVPB ONCE ONE Rx#:[id number] Oral 700 Output: Urine 750 200 45 Other: Voiding Method Toilet Indwelling Catheter Indwelling Catheter # Voids 3 - Exam PHYSICAL EXAMINATION: Patient is lying in the bed comfortably, no acute distress, patient is on mechanical ventilation HEENT: Normocephalic. Neck is supple. Pupils reactive. Nostrils clear. Oral cavity is moist. Ears reveal no drainage. Neck reveals no JVD, carotid bruits, or thyromegaly. CHEST EXAMINATION: Trachea is central. Symmetrical expansion. Bilateral air entry is present. Rhonchi positive bilaterally CARDIAC: Normal S1, S2 with no gallops. No murmurs ABDOMEN: Soft. Bowel sounds normal. No organomegaly. No abdominal bruits. Extremities: 1+ edema. No clubbing or cyanosis Neurologically. Patient is non-arousable. No focal deficits noted Skin: No rash or skin lesions. Psychiatric: Could not bases at this time Musculoskeletal: No joint swelling or deformity. Normal range of motion. - Labs CBC & Chem 7: 05/13/17 05:43 05/13/17 17:35 Labs: Abnormal Lab Results - Last 24 Hours (Table) 05/12/17 05/13/17 05/13/17 Range/Units 05:08 00:31 01:49 RBC (4.30-5.90) m/uL Hgb (13.0-17.5) gm/dL Hct (39.0-53.0) % MCHC (31.0-37.0) g/dL RDW (11.5-15.5) % Plt Count (150-450) k/uL Neutrophils # (1.3-7.7) k/uL Lymphocytes # (1.0-4.8) k/uL ABG pH (7.35-7.45) ABG pCO2 (35-45) mmHg ABG pO2 (83-108) mmHg ABG HCO3 (21-25) mmol/L ABG O2 Saturation (94-97) % Sodium 135 L (137-145) mmol/L Potassium 5.2 H (3.5-5.1) mmol/L Carbon Dioxide 16 L (22-30) mmol/L BUN 85 H* (9-20) mg/dL Creatinine 4.30 H (0.66-1.25) mg/dL Glucose 66 L (74-99) mg/dL POC Glucose (mg/dL) 64 L (75-99) mg/dL Phosphorus (2.5-4.5) mg/dL Iron 9 L (65-175) ug/dL Iron Saturation 3.45 L (15.00-50.00) Urine Protein (Negative) Amorphous Sediment (None) /hpf Urine Bacteria (None) /hpf Hyaline Casts (0-2) /lpf Urine Mucus (None) /hpf 05/13/17 05/13/17 05/13/17 Range/Units 02:05 05:40 05:40 RBC (4.30-5.90) m/uL Hgb (13.0-17.5) gm/dL Hct (39.0-53.0) % MCHC (31.0-37.0) g/dL RDW (11.5-15.5) % Plt Count (150-450) k/uL Neutrophils # (1.3-7.7) k/uL Lymphocytes # (1.0-4.8) k/uL ABG pH (7.35-7.45) ABG pCO2 (35-45) mmHg ABG pO2 (83-108) mmHg ABG HCO3 (21-25) mmol/L ABG O2 Saturation (94-97) % Sodium 134 L (137-145) mmol/L Potassium 5.9 H (3.5-5.1) mmol/L Carbon Dioxide 17 L (22-30) mmol/L BUN 91 H* (9-20) mg/dL Creatinine 4.60 H (0.66-1.25) mg/dL Glucose (74-99) mg/dL POC Glucose (mg/dL) 60 L (75-99) mg/dL Phosphorus 7.3 H (2.5-4.5) mg/dL Iron (65-175) ug/dL Iron Saturation (15.00-50.00) Urine Protein (Negative) Amorphous Sediment (None) /hpf Urine Bacteria (None) /hpf Hyaline Casts (0-2) /lpf Urine Mucus (None) /hpf 05/13/17 05/13/17 05/13/17 Range/Units 05:43 10:28 12:26 RBC 3.12 L (4.30-5.90) m/uL Hgb 8.4 L (13.0-17.5) gm/dL Hct 28.5 L (39.0-53.0) % MCHC 29.5 L (31.0-37.0) g/dL RDW 16.2 H (11.5-15.5) % Plt Count 107 L (150-450) k/uL Neutrophils # 8.2 H (1.3-7.7) k/uL Lymphocytes # 0.3 L (1.0-4.8) k/uL ABG pH 7.20 L* (7.35-7.45) ABG pCO2 50 H (35-45) mmHg ABG pO2 (83-108) mmHg ABG HCO3 19 L (21-25) mmol/L ABG O2 Saturation (94-97) % Sodium (137-145) mmol/L Potassium (3.5-5.1) mmol/L Carbon Dioxide (22-30) mmol/L BUN (9-20) mg/dL Creatinine (0.66-1.25) mg/dL Glucose (74-99) mg/dL POC Glucose (mg/dL) 140 H (75-99) mg/dL Phosphorus (2.5-4.5) mg/dL Iron (65-175) ug/dL Iron Saturation (15.00-50.00) Urine Protein (Negative) Amorphous Sediment (None) /hpf Urine Bacteria (None) /hpf Hyaline Casts (0-2) /lpf Urine Mucus (None) /hpf 05/13/17 05/13/17 05/13/17 Range/Units 12:33 13:16 16:42 RBC (4.30-5.90) m/uL Hgb (13.0-17.5) gm/dL Hct (39.0-53.0) % MCHC (31.0-37.0) g/dL RDW (11.5-15.5) % Plt Count (150-450) k/uL Neutrophils # (1.3-7.7) k/uL Lymphocytes # (1.0-4.8) k/uL ABG pH 7.21 L (7.35-7.45) ABG pCO2 50 H (35-45) mmHg ABG pO2 145 H (83-108) mmHg ABG HCO3 19 L (21-25) mmol/L ABG O2 Saturation 99.0 H (94-97) % Sodium (137-145) mmol/L Potassium 5.8 H (3.5-5.1) mmol/L Carbon Dioxide (22-30) mmol/L BUN (9-20) mg/dL Creatinine (0.66-1.25) mg/dL Glucose (74-99) mg/dL POC Glucose (mg/dL) (75-99) mg/dL Phosphorus (2.5-4.5) mg/dL Iron (65-175) ug/dL Iron Saturation (15.00-50.00) Urine Protein 3+ H (Negative) Amorphous Sediment Occasional H (None) /hpf Urine Bacteria Occasional H (None) /hpf Hyaline Casts 24 H (0-2) /lpf Urine Mucus Rare H (None) /hpf 05/13/17 05/13/17 Range/Units 17:35 23:19 RBC (4.30-5.90) m/uL Hgb (13.0-17.5) gm/dL Hct (39.0-53.0) % MCHC (31.0-37.0) g/dL RDW (11.5-15.5) % Plt Count (150-450) k/uL Neutrophils # (1.3-7.7) k/uL Lymphocytes # (1.0-4.8) k/uL ABG pH (7.35-7.45) ABG pCO2 (35-45) mmHg ABG pO2 (83-108) mmHg ABG HCO3 (21-25) mmol/L ABG O2 Saturation (94-97) % Sodium (137-145) mmol/L Potassium 5.8 H (3.5-5.1) mmol/L Carbon Dioxide (22-30) mmol/L BUN (9-20) mg/dL Creatinine (0.66-1.25) mg/dL Glucose (74-99) mg/dL POC Glucose (mg/dL) 103 H (75-99) mg/dL Phosphorus (2.5-4.5) mg/dL Iron (65-175) ug/dL Iron Saturation (15.00-50.00) Urine Protein (Negative) Amorphous Sediment (None) /hpf Urine Bacteria (None) /hpf Hyaline Casts (0-2) /lpf Urine Mucus (None) /hpf Microbiology - Last 24 Hours (Table) 05/13/17 12:33 Urine Culture - Preliminary Urine,Catheterized 05/11/17 00:50 Blood Culture - Preliminary Blood No Growth after 48 hours Assessment and Plan Plan: #1 acute hypoxic and hypercapnic respiratory failure. Currently on BiPAP #2 acute COPD exacerbation #3 left lung pneumonia suspected gram-negative on admission present #4 diabetes type 2 insulin-dependent #5 acute on chronic CHF with diastolic dysfunction ejection fraction 55-50% #6 severe pulmonary hypertension #7 hypertension #8 Hyperlipidemia #9 History of previous smoking #10 acute on chronic kidney disease stage IV #11 CKD likely due to diabetic nephropathy and hypertensive nephrosclerosis #12 peripheral vascular disease #13 coronary artery disease status post bypass graft #14history of cardiac block status post pacemaker insertion/AICD insertion Plan: Patient is being continued on BiPAP. Repeat ABGs were ordered. Continue the antibiotics and breathing treatments and IV steroids. Continue to follow renal function. Pulmonary and nephrology is following this patient. Prognosis is guarded with multiple medical problems and comorbid conditions. Further recommendations based on the clinical course. Time with Patient: Greater than 30
[2017-05-14] MEDS ORDERED: DEXTROSE 50%-WATER 50 ML SYRINGE IVP STA (01:06)
[2017-05-14] MEDS ORDERED: INSULIN REGULAR 100 UNIT/ML VIAL IV ONE (01:06)
[2017-05-14 04:19] LABS: ABG HCO3 20 mmol/L (21-25); ABG PCO2 48 mmHg (35-45); ABG PH 7.24 (7.35-7.45); ABG PO2 85 mmHg (83-108); ABG TCO2 21 mmol/L (19-24)
[2017-05-14 04:20] LABS: ABG Base Excess -6.2 mmol/L
[2017-05-14 04:47] LABS: Anisocytosis Slight; Basophils % (A) 0 %; CH 27.2; Eosinophils % (A) 0 %; HCT 28.3 % (39.0-53.0); HGB 8.4 gm/dL (13.0-17.5); Hypochromasia Marked; Luc # (Auto) 0.09; Luc % (Auto) 1; Lymphocytes # (A) 0.2 k/uL (1.0-4.8); Lymphocytes % (A) 2 %; MCH 27.1 pg (25.0-35.0); MCHC 29.8 g/dL (31.0-37.0); MCV 91.1 fL (80.0-100.0); Mean Platelet Volume 9.9; Monocytes # (A) 0.3 k/uL (0-1.0); Monocytes % (A) 3 %; Neutrophils # (A) 9.1 k/uL (1.3-7.7); Neutrophils % (A) 94 %; WBC 9.6 k/uL (3.8-10.6); WBC (Perox) 8.88
[2017-05-14 04:58] LABS: Calcium 8.2 mg/dL (8.4-10.2); Magnesium 1.9 mg/dL (1.6-2.3); Potassium 5.3 mmol/L (3.5-5.1)
[2017-05-14 05:10] LABS: Phosphorous 8.7 mg/dL (2.5-4.5)
[2017-05-14] MEDS: IPRATROPIUM-ALBUTEROL 3 ML NEB INHALATION SCH ×4 (07:52→19:54)
--- NOTE | 2017-05-14 08:01 | XR ---
EXAMINATION TYPE: XR chest 1V DATE OF EXAM: 05/14/2017 COMPARISON: 05/11/2017 HISTORY: Congestive heart failure TECHNIQUE: Single frontal view of the chest is obtained. FINDINGS: As seen on the recent CT bibasilar opacities are appreciated most compatible with underlyi ng multifocal pneumonia and left basilar atelectasis. The patient's chin obscures the lung apices may cannot be evaluated. Median sternotomy wires, mediastinal clips, and multilead left-sided cardiac de vice are redemonstrated with dehiscence of the most inferior sternotomy wires. Heart is again mildly enlarged. No pulmonary vascular congestion or pleural effusions. IMPRESSION: Multifocal airspace disease, similar to the prior, most compatible with multifocal pneum onia and left basilar atelectasis.
[2017-05-14 08:30] LABS: Glucose,Whole Blood 163 mg/dL (75-99)
[2017-05-14] MEDS: hydrALAZINE HCL 25 MG TAB PO SCH ×2 (08:30→15:01)
[2017-05-14] MEDS: CARVEDILOL 12.5 MG TAB PO SCH (08:30)
[2017-05-14] MEDS: INSULIN LISPRO (humaLOG) 300 UNIT/3 ML VIAL SQ SCH ×5 (08:36→23:47)
[2017-05-14] MEDS: FERROUS SULFATE 325 MG TAB PO SCH ×2 (09:15→20:39)
[2017-05-14] MEDS: ISOSORBIDE MONONITRATE ER 30 MG TAB.ER.24H PO SCH (09:35)
[2017-05-14] MEDS: ENOXAPARIN 30 MG/0.3 ML SYRINGE SQ SCH (10:24)
--- NOTE | 2017-05-14 10:34 | P.PN ---
Subjective Progress Note Date: 05/14/17 A 67-year-old male patient who is being seen in consultation upon the request of Dr. Jerez for worsening shortness of breath. At the time of my evaluation , the patient was noted to be quite lethargic and somnolent. He was arousable. He had increased cough and congestion. He had diminished breath sounds throughout his lung pearson bilaterally. He was placed on oxygen at 3 L/m nasal cannula. A blood gas was ordered and it showed a pH of 7.2 with a pCO2 of 50 and a pO2 of 78 at 3 L/m nasal cannula. The patient was also found to be in acute on top of chronic renal failure with an underlying metabolic acidosis and acute hyperkalemia with a potassium level of 5.9. For that reason I made recommendations for this patient to be transferred to the intensive care unit. I was also told that the patient was having hypoglycemic events and he was placed on D5 half-normal saline at rate of 70 and an hour. This patient has history of COPD. The patient is an ex-smoker. His undergone coronary artery bypass surgery 2 years back and [facility] for underlying coronary artery disease. He is also known to have ischemic artery myopathy and has had an AICD in place. He suffers from chronic renal failure. He has hypertension and hyperlipidemia and diabetes mellitus. He presented to the hospital because of increased cough congestion and worsening shortness of breath. No major swelling in lower extremities. No orthopnea. No peripheral edema. His white cell count was nonelevated. His hemoglobin was low and the patient has chronic anemia with a hemoglobin of 8.3-8.4 and he was given IV iron. He was being diuresis with IV Lasix and diuretics got placed on hold as the patient developed an acute on top of chronic renal failure. The patient is also covered with broad-spectrum antibiotics and is currently on IV Fortaz. On 05/14/2017 I'm seeing this patient for a follow-up. The patient is quite lethargic and somnolent and he still continues to have significant limitations level of consciousness. Overnight he was also agitated and confused and he had required a dose of Ativan 1 mg which controlled his agitation. Overnight he was also kept on a BiPAP at a pressure of 12/5 cm of water and FiO2 of 40%. He continues to be oliguric. His renal function is progressively getting worse in his creatinine is up to 5.8. He was started on a bicarb drip yesterday and his serum bicarb is up to 17 and he has an anion gap of 17. The patient's chest x- ray from today showing multilobar pneumonia. A CAT scan of the chest was also done yesterday that showed bilateral pneumonia with airspace disease in the left upper lobe and some minimal airspace disease present in the right lung base. He has a weak cough. He is having difficulties in breathing and up his rest or secretions. His was unable to swallow today due to his marked diminishment in level of consciousness. And based on all this, I made decision to intubate the patient and place him on a mechanical ventilator. I also contacted nephrology and the patient is being considered for hemodialysis today. He is diabetic. His blood sugars have been within the hypoglycemic range and his most recent blood sugar is 163. He remains on D5 with 3 A of bicarb at the rate of 75 mL an hour. Objective - Vital Signs Vital signs: Vital Signs Temp 98.7 F 05/14/17 08:00 Pulse 60 05/14/17 09:30 Resp 20 05/14/17 09:30 BP 88/44 05/14/17 09:30 Pulse Ox 95 05/14/17 09:30 Intake & Output 05/13/17 05/14/17 05/14/17 18:59 06:59 18:59 Intake Total 765 1786.25 145 Output Total 200 95 26 Balance 565 1691.25 119 Weight 93.2 kg Intake: IV 50 1685 145 .9 50 10 20 Dextrose 5% in Water 1, 1175 75 000 ml @ 125 mls/hr IV . Q9H12M [facility] with Sodium Bicarb (1 Meq/ml) 150 ml Rx#:[id number] Sodium Chloride 0.9% 250 500 ml @ 500 mls/hr IV .Q30M ONE Rx#:[id number] cefTAZidime 1 gm In 50 Sodium Chloride 0.9% 50 ml @ 100 mls/hr IVPB DAILY [facility] Rx#:[id number] Intake, IV Titration 715 101.25 Amount Dextrose 10% in Water 1, 40 000 ml In Empty Bag 1 bag @ 40 mls/hr IV .Q24H [facility] Rx#:[id number] Dextrose 5% in Water 1, 225 75 000 ml @ 125 mls/hr IV . Q9H12M [facility] with Sodium Bicarb (1 Meq/ml) 150 ml Rx#:[id number] Levofloxacin 500Mg-D5w 100 Pmx 500 mg In Dextrose/ Water 1 100ml.bag @ 100 mls/hr IVPB Q48H [facility] Rx#: [id number] Norepinephrin 4 mg-0.9% 26.25 Ns Pmx 4 mg In 250 ml @ Titrate IV .Q0M [facility] Rx#: [id number] Sodium Ferric Gluconat- 100 Sucrose 125 mg In Sodium Chloride 0.9% 100 ml @ 100 mls/hr IVPB DAILY [facility] Rx#:[id number] Vancomycin 1,750 mg In 250 Sodium Chloride 0.9% 250 ml @ 125 mls/hr IVPB ONCE ONE Rx#:[id number] Output: Urine 200 95 26 Other: Voiding Method Indwelling Catheter Indwelling Catheter Indwelling Catheter - Exam Gen. appearance, the patient is sick looking, in mild degree of respirator distress, lethargic and the patient is using some excessive muscles of breathing. He is very somnolent and there has been further is drop in his mental status compared to yesterday. He is at the point where he is unable to swallow and has a weak cough and has having difficult disease including the Zestril or secretions..Head exam was generally normal. There was no scleral icterus or corneal arcus. Mucous membranes were moist. Mucous membranes are dry. No thrush.Neck was supple and without jugular venous distension, thyromegaly, or carotid bruits. Carotids were easily palpable bilaterally. There was no adenopathy. Lung sounds are diminished specially in the right lung base. There is scattered rhonchi's. There is scattered expiratory wheezes throughout the lung pearson bilaterally.Cardiac exam revealed the PMI to be normally situated and sized. The rhythm was regular and no extrasystoles were noted during several minutes of auscultation. The first and second heart sounds were normal and physiologic splitting of the second heart sound was noted. There were no murmurs, rubs, clicks, or gallops.Abdominal exam revealed normal bowel sounds. The abdomen was soft, non-tender, and without masses, organomegaly, or appreciable enlargement of the abdominal aorta. Extremities reveal trace edema and there is no cyanosis or clubbing and pulses are diminished otherwise they're present. Neurologically, the patient's exam is nonfocal. He withdraws to painful stimulation. His pupils are equal and reactive to light. We'll go to sleep if left unstimulated and he is quite encephalopathic at this point. Examination of the skin revealed no evidence of significant rashes, suspicious appearing nevi or other concerning lesions. - Labs CBC & Chem 7: 05/14/17 04:15 05/14/17 04:12 Labs: Abnormal Lab Results - Last 24 Hours (Table) 05/13/17 05/13/17 05/13/17 Range/Units 05:40 10:28 12:26 RBC (4.30-5.90) m/uL Hgb (13.0-17.5) gm/dL Hct (39.0-53.0) % MCHC (31.0-37.0) g/dL RDW (11.5-15.5) % Plt Count (150-450) k/uL Neutrophils # (1.3-7.7) k/uL Lymphocytes # (1.0-4.8) k/uL ABG pH 7.20 L* (7.35-7.45) ABG pCO2 50 H (35-45) mmHg ABG pO2 (83-108) mmHg ABG HCO3 19 L (21-25) mmol/L ABG O2 Saturation (94-97) % Sodium (137-145) mmol/L Potassium (3.5-5.1) mmol/L Carbon Dioxide (22-30) mmol/L BUN (9-20) mg/dL Creatinine (0.66-1.25) mg/dL Glucose (74-99) mg/dL POC Glucose (mg/dL) 140 H (75-99) mg/dL Calcium (8.4-10.2) mg/dL Phosphorus 7.3 H (2.5-4.5) mg/dL Urine Protein (Negative) Amorphous Sediment (None) /hpf Urine Bacteria (None) /hpf Hyaline Casts (0-2) /lpf Urine Mucus (None) /hpf 05/13/17 05/13/17 05/13/17 Range/Units 12:33 13:16 16:42 RBC (4.30-5.90) m/uL Hgb (13.0-17.5) gm/dL Hct (39.0-53.0) % MCHC (31.0-37.0) g/dL RDW (11.5-15.5) % Plt Count (150-450) k/uL Neutrophils # (1.3-7.7) k/uL Lymphocytes # (1.0-4.8) k/uL ABG pH 7.21 L (7.35-7.45) ABG pCO2 50 H (35-45) mmHg ABG pO2 145 H (83-108) mmHg ABG HCO3 19 L (21-25) mmol/L ABG O2 Saturation 99.0 H (94-97) % Sodium (137-145) mmol/L Potassium 5.8 H (3.5-5.1) mmol/L Carbon Dioxide (22-30) mmol/L BUN (9-20) mg/dL Creatinine (0.66-1.25) mg/dL Glucose (74-99) mg/dL POC Glucose (mg/dL) (75-99) mg/dL Calcium (8.4-10.2) mg/dL Phosphorus (2.5-4.5) mg/dL Urine Protein 3+ H (Negative) Amorphous Sediment Occasional H (None) /hpf Urine Bacteria Occasional H (None) /hpf Hyaline Casts 24 H (0-2) /lpf Urine Mucus Rare H (None) /hpf 05/13/17 05/13/17 05/14/17 Range/Units 17:35 23:19 00:05 RBC (4.30-5.90) m/uL Hgb (13.0-17.5) gm/dL Hct (39.0-53.0) % MCHC (31.0-37.0) g/dL RDW (11.5-15.5) % Plt Count (150-450) k/uL Neutrophils # (1.3-7.7) k/uL Lymphocytes # (1.0-4.8) k/uL ABG pH (7.35-7.45) ABG pCO2 (35-45) mmHg ABG pO2 (83-108) mmHg ABG HCO3 (21-25) mmol/L ABG O2 Saturation (94-97) % Sodium (137-145) mmol/L Potassium 5.8 H 6.0 H (3.5-5.1) mmol/L Carbon Dioxide (22-30) mmol/L BUN (9-20) mg/dL Creatinine (0.66-1.25) mg/dL Glucose (74-99) mg/dL POC Glucose (mg/dL) 103 H (75-99) mg/dL Calcium (8.4-10.2) mg/dL Phosphorus (2.5-4.5) mg/dL Urine Protein (Negative) Amorphous Sediment (None) /hpf Urine Bacteria (None) /hpf Hyaline Casts (0-2) /lpf Urine Mucus (None) /hpf 05/14/17 05/14/17 05/14/17 Range/Units 04:09 04:12 04:15 RBC 3.10 L (4.30-5.90) m/uL Hgb 8.4 L (13.0-17.5) gm/dL Hct 28.3 L (39.0-53.0) % MCHC 29.8 L (31.0-37.0) g/dL RDW 17.0 H (11.5-15.5) % Plt Count 123 L (150-450) k/uL Neutrophils # 9.1 H (1.3-7.7) k/uL Lymphocytes # 0.2 L (1.0-4.8) k/uL ABG pH 7.24 L (7.35-7.45) ABG pCO2 48 H (35-45) mmHg ABG pO2 (83-108) mmHg ABG HCO3 20 L (21-25) mmol/L ABG O2 Saturation (94-97) % Sodium 132 L (137-145) mmol/L Potassium 5.3 H (3.5-5.1) mmol/L Carbon Dioxide 17 L (22-30) mmol/L BUN 105 H* (9-20) mg/dL Creatinine 5.80 H* (0.66-1.25) mg/dL Glucose 153 H (74-99) mg/dL POC Glucose (mg/dL) (75-99) mg/dL Calcium 8.2 L (8.4-10.2) mg/dL Phosphorus 8.7 H* (2.5-4.5) mg/dL Urine Protein (Negative) Amorphous Sediment (None) /hpf Urine Bacteria (None) /hpf Hyaline Casts (0-2) /lpf Urine Mucus (None) /hpf 05/14/17 Range/Units 08:28 RBC (4.30-5.90) m/uL Hgb (13.0-17.5) gm/dL Hct (39.0-53.0) % MCHC (31.0-37.0) g/dL RDW (11.5-15.5) % Plt Count (150-450) k/uL Neutrophils # (1.3-7.7) k/uL Lymphocytes # (1.0-4.8) k/uL ABG pH (7.35-7.45) ABG pCO2 (35-45) mmHg ABG pO2 (83-108) mmHg ABG HCO3 (21-25) mmol/L ABG O2 Saturation (94-97) % Sodium (137-145) mmol/L Potassium (3.5-5.1) mmol/L Carbon Dioxide (22-30) mmol/L BUN (9-20) mg/dL Creatinine (0.66-1.25) mg/dL Glucose (74-99) mg/dL POC Glucose (mg/dL) 163 H (75-99) mg/dL Calcium (8.4-10.2) mg/dL Phosphorus (2.5-4.5) mg/dL Urine Protein (Negative) Amorphous Sediment (None) /hpf Urine Bacteria (None) /hpf Hyaline Casts (0-2) /lpf Urine Mucus (None) /hpf Microbiology - Last 24 Hours (Table) 05/11/17 11:50 Gram Stain - Final Sputum Sputum Culture - Final 05/11/17 00:50 Blood Culture - Preliminary Blood No Growth after 72 hours 05/13/17 12:33 Urine Culture - Preliminary Urine,Catheterized Assessment and Plan Plan: Assessment 1 bilateral pneumonia worse on the left with secondary acute hypoxic respiratory failure. The patient required BiPAP overnight and currently is on 6 L of oxygen nasal cannula. There is a concern of his ability to protect his airway specially with his encephalopathy and diminished level of consciousness. His cough is weak. Unable to swallow. He is having excessive respiratory secretions. He'll be intubated and placed on a mechanical ventilator. The chest x-ray from today shows no significant interval change compared to yesterday and the patient continues to have a left lower lobe consolidation. The patient is currently on IV Fortaz. Vancomycin and Levaquin was also added yesterday. 2 acute COPD exacerbation secondary to left lung pneumonia 3 acute hypoxic respiratory failure secondary to above 4 congestion heart failure, ischemic cardiomyopathy and the most recent echocardiogram shows a low normal ejection fraction with an EF around 50-55%, severely dilated LA, severe pulmonary hypertension with a PA pressure of 68 5 coronary artery disease with previous coronary artery bypass surgery 6 history of cardiac block status post pacemaker insertion/AICD insertion 7 acute on top of chronic renal failure, likely secondary to diuresis. At this point the patient is oliguric. The patient is not producing any urine output. His creatinine is up to 5.8. His metabolic acidosis improving. 8 chronic renal failure with stage III to 4 chronic kidney disease 9 diabetes mellitus, currently on D5 with bicarb which is maintaining his blood sugar and the patient is not having any ongoing hypoglycemic events 10 hypertension 11 hyperlipidemia. 12 hyperkalemia, improving and the potassium level is down to 5.3 15 peripheral vascular disease 14 previous history of GI bleed 15 chronic iron deficiency 16 metabolic acidosis currently on bicarbonate infusion and the bicarb level is improving. Plan I had a lengthy discussion with the patient's . I explained the rationale of protecting the patient's airway. I think the patient will need intubation mechanical ventilation. I may decide even to bronchoscope this patient if needed for pulmonary toileting and obtaining a microbial diagnoses. Continue same antibiotic coverage. Dialysis is being contemplated for today. Meanwhile continue the bicarb drip. May need to initiate tube feeding after intubation. Further recommendations are to follow. Condition is critical for now. He may also need some pressors and levo fed will be utilized to make a mean artery pressure above 65. There is a critically care evaluation that was done more than 30 minutes. Time with Patient: Greater than 30
[2017-05-14] MEDS: SODIUM FERRIC GLUCONAT-SUCROSE 125 MG in SODIUM CHLORIDE 0.9% 100 ML IVPB SCH (10:36)
[2017-05-14] MEDS ORDERED: CISATRACURIUM 2 MG/ML 5 ML VIAL IV ONE (11:02)
[2017-05-14] MEDS: PROPOFOL 1,000 MG/100 ML VIAL IV SCH ×3 (11:09→20:12)
[2017-05-14 11:10] LABS: Hemoglobin A1C 6.1 % (4.2-6.1)
--- NOTE | 2017-05-14 11:25 | P.PCN ---
Date of Procedure: 05/14/17 Preoperative Diagnosis: Acute respiratory failure, bilateral pneumonia Postoperative Diagnosis: Acute respiratory failure, bilateral pneumonia Procedure(s) Performed: Flexible bronchoscopy, bronchoalveolar lavage Anesthesia: MAC Surgeon: Katie Huddleston Pathology: other Condition: critical Disposition: ICU Operative Findings: This procedure was done in the intensive care unit. The patient was already intubated on a mechanical ventilator. The patient was sedated with Diprivan and he was quite calm and comfortable. An adaptor was attached and orotracheal tube and following that the flexible bronchoscope was passed through the adapter into the ET tube. The flexible bronchoscope was gradually advanced and the tip of the tube was seen around 2 cm above the kym. At this point, airway inspection was done. There was diffuse loose secretions scattered throughout the lung pearson bilaterally more so in the lower lobes and more so on the left. The visualized airways included the distal trachea, main kym, bilateral mainstem bronchi, right upper lobe bronchus, right middle lobe bronchus, right lower lobe bronchus, left upper lobe bronchus and left lower lobe bronchus. Most of the secretions were present in the lower lobes. Therapeutic it was suctioning was done. The bronchioloalveolar lavage of the left lower lobe was done with a total of 60 mL of fluid was infused and densities was suctioned back. At the end of the procedure the bronchoscope was removed and the patient tolerated the procedure well without any complications. His pulse ox remained above 90% throughout the procedure. The procedure was done as the patient was being mechanically ventilated and adequately oxygenated. No endobronchial tumors. No foreign bodies.
[2017-05-14] MEDS ORDERED: HEPARIN SODIUM,PORCINE 5,000 UNIT/ML 1 ML VIAL ONE (11:34)
--- NOTE | 2017-05-14 11:44 | P.PN ---
Subjective Patient is seen in follow-up for acute kidney injury on chronic kidney disease. Patient has chronic kidney disease stage IIIB secondary to nephrosclerosis and diabetic kidney disease with baseline creatinine near 2. His creatinine is up to 5,8 today. Diuretics have been discontinued. Patient appeared quite lethargic yesterday and ABG were suggestive of mixed metabolic and respiratory acidosis. He is currently in intensive care unit and is being intubated today. He is oliguric with urine output in the range of 5-10 mL an hour. He also became hypotensive last night and is currently requiring low-dose vasopressors. He is maintained on isotonic sodium bicarbonate drip running at 125 mL an hour. Vital signs are stable. Requiring vasopressors. General: The patient appeared well nourished and normally developed. HEENT: Head exam is unremarkable. Neck is without jugular venous distension. LUNGS: Scattered rhonchi. Breath sounds decreased. HEART: Rate and Rhythm are regular. First and second heart sounds normal. No murmurs, rubs or gallops. ABDOMEN: Abdominal exam reveals normal bowel sounds. Non-tender and non- distended. EXTREMITITES: No clubbing, cyanosis, or edema. Objective - Vital Signs Vital signs: Vital Signs Temp 98.7 F 05/14/17 08:00 Pulse 59 L 05/14/17 11:00 Resp 23 05/14/17 11:00 BP 108/53 05/14/17 11:00 Pulse Ox 100 05/14/17 11:00 Intake & Output 05/13/17 05/14/17 05/14/17 18:59 06:59 18:59 Intake Total 765 1786.25 538.75 Output Total 200 95 33 Balance 565 1691.25 505.75 Weight 93.2 kg Intake: IV 50 1685 315 .9 50 10 40 Dextrose 5% in Water 1, 1175 225 000 ml @ 125 mls/hr IV . Q9H12M [facility] with Sodium Bicarb (1 Meq/ml) 150 ml Rx#:[id number] Sodium Chloride 0.9% 250 500 ml @ 500 mls/hr IV .Q30M [facility] Rx#:[id number] cefTAZidime 1 gm In 50 Sodium Chloride 0.9% 50 ml @ 100 mls/hr IVPB DAILY [facility] Rx#:[id number] Intake, IV Titration 715 101.25 223.75 Amount Dextrose 10% in Water 1, 40 000 ml In Empty Bag 1 bag @ 40 mls/hr IV .Q24H [facility] Rx#:[id number] Dextrose 5% in Water 1, 225 75 000 ml @ 125 mls/hr IV . Q9H12M [facility] with Sodium Bicarb (1 Meq/ml) 150 ml Rx#:[id number] Levofloxacin 500Mg-D5w 100 Pmx 500 mg In Dextrose/ Water 1 100ml.bag @ 100 mls/hr IVPB Q48H [facility] Rx#: [id number] Norepinephrin 4 mg-0.9% 26.25 223.75 Ns Pmx 4 mg In 250 ml @ Titrate IV .Q0M [facility] Rx#: [id number] Propofol 1,000 mg In 100 0 ml @ Titrate IV .Q0M [facility] Rx#:[id number] Sodium Ferric Gluconat- 100 Sucrose 125 mg In Sodium Chloride 0.9% 100 ml @ 100 mls/hr IVPB DAILY [facility] Rx#:[id number] Vancomycin 1,750 mg In 250 Sodium Chloride 0.9% 250 ml @ 125 mls/hr IVPB ONCE [facility] Rx#:[id number] Output: Urine 200 95 33 Other: Voiding Method Indwelling Catheter Indwelling Catheter Indwelling Catheter - Labs CBC & Chem 7: 05/14/17 04:15 05/14/17 04:12 Labs: Abnormal Lab Results - Last 24 Hours (Table) 05/13/17 05/13/17 05/13/17 Range/Units 12:26 12:33 13:16 RBC (4.30-5.90) m/uL Hgb (13.0-17.5) gm/dL Hct (39.0-53.0) % MCHC (31.0-37.0) g/dL RDW (11.5-15.5) % Plt Count (150-450) k/uL Neutrophils # (1.3-7.7) k/uL Lymphocytes # (1.0-4.8) k/uL ABG pH (7.35-7.45) ABG pCO2 (35-45) mmHg ABG pO2 (83-108) mmHg ABG HCO3 (21-25) mmol/L ABG O2 Saturation (94-97) % Sodium (137-145) mmol/L Potassium 5.8 H (3.5-5.1) mmol/L Carbon Dioxide (22-30) mmol/L BUN (9-20) mg/dL Creatinine (0.66-1.25) mg/dL Glucose (74-99) mg/dL POC Glucose (mg/dL) 140 H (75-99) mg/dL Calcium (8.4-10.2) mg/dL Phosphorus (2.5-4.5) mg/dL Urine Protein 3+ H (Negative) Amorphous Sediment Occasional H (None) /hpf Urine Bacteria Occasional H (None) /hpf Hyaline Casts 24 H (0-2) /lpf Urine Mucus Rare H (None) /hpf 05/13/17 05/13/17 05/13/17 Range/Units 16:42 17:35 23:19 RBC (4.30-5.90) m/uL Hgb (13.0-17.5) gm/dL Hct (39.0-53.0) % MCHC (31.0-37.0) g/dL RDW (11.5-15.5) % Plt Count (150-450) k/uL Neutrophils # (1.3-7.7) k/uL Lymphocytes # (1.0-4.8) k/uL ABG pH 7.21 L (7.35-7.45) ABG pCO2 50 H (35-45) mmHg ABG pO2 145 H (83-108) mmHg ABG HCO3 19 L (21-25) mmol/L ABG O2 Saturation 99.0 H (94-97) % Sodium (137-145) mmol/L Potassium 5.8 H (3.5-5.1) mmol/L Carbon Dioxide (22-30) mmol/L BUN (9-20) mg/dL Creatinine (0.66-1.25) mg/dL Glucose (74-99) mg/dL POC Glucose (mg/dL) 103 H (75-99) mg/dL Calcium (8.4-10.2) mg/dL Phosphorus (2.5-4.5) mg/dL Urine Protein (Negative) Amorphous Sediment (None) /hpf Urine Bacteria (None) /hpf Hyaline Casts (0-2) /lpf Urine Mucus (None) /hpf 05/14/17 05/14/17 05/14/17 Range/Units 00:05 04:09 04:12 RBC (4.30-5.90) m/uL Hgb (13.0-17.5) gm/dL Hct (39.0-53.0) % MCHC (31.0-37.0) g/dL RDW (11.5-15.5) % Plt Count (150-450) k/uL Neutrophils # (1.3-7.7) k/uL Lymphocytes # (1.0-4.8) k/uL ABG pH 7.24 L (7.35-7.45) ABG pCO2 48 H (35-45) mmHg ABG pO2 (83-108) mmHg ABG HCO3 20 L (21-25) mmol/L ABG O2 Saturation (94-97) % Sodium 132 L (137-145) mmol/L Potassium 6.0 H 5.3 H (3.5-5.1) mmol/L Carbon Dioxide 17 L (22-30) mmol/L BUN 105 H* (9-20) mg/dL Creatinine 5.80 H* (0.66-1.25) mg/dL Glucose 153 H (74-99) mg/dL POC Glucose (mg/dL) (75-99) mg/dL Calcium 8.2 L (8.4-10.2) mg/dL Phosphorus 8.7 H* (2.5-4.5) mg/dL Urine Protein (Negative) Amorphous Sediment (None) /hpf Urine Bacteria (None) /hpf Hyaline Casts (0-2) /lpf Urine Mucus (None) /hpf 05/14/17 05/14/17 Range/Units 04:15 08:28 RBC 3.10 L (4.30-5.90) m/uL Hgb 8.4 L (13.0-17.5) gm/dL Hct 28.3 L (39.0-53.0) % MCHC 29.8 L (31.0-37.0) g/dL RDW 17.0 H (11.5-15.5) % Plt Count 123 L (150-450) k/uL Neutrophils # 9.1 H (1.3-7.7) k/uL Lymphocytes # 0.2 L (1.0-4.8) k/uL ABG pH (7.35-7.45) ABG pCO2 (35-45) mmHg ABG pO2 (83-108) mmHg ABG HCO3 (21-25) mmol/L ABG O2 Saturation (94-97) % Sodium (137-145) mmol/L Potassium (3.5-5.1) mmol/L Carbon Dioxide (22-30) mmol/L BUN (9-20) mg/dL Creatinine (0.66-1.25) mg/dL Glucose (74-99) mg/dL POC Glucose (mg/dL) 163 H (75-99) mg/dL Calcium (8.4-10.2) mg/dL Phosphorus (2.5-4.5) mg/dL Urine Protein (Negative) Amorphous Sediment (None) /hpf Urine Bacteria (None) /hpf Hyaline Casts (0-2) /lpf Urine Mucus (None) /hpf Microbiology - Last 24 Hours (Table) 05/11/17 11:50 Gram Stain - Final Sputum Sputum Culture - Final 05/11/17 00:50 Blood Culture - Preliminary Blood No Growth after 72 hours 05/13/17 12:33 Urine Culture - Preliminary Urine,Catheterized Assessment and Plan Plan: Assessment: #1. Oliguric acute kidney injury secondary to ATN secondary to pneumonia and further worsened with the use of diuretics and MIC inhibitor. Patient also hypotensive requiring vasopressors. Postvoid residual was 170. Creatinine up to 5.8 today. #2. Chronic kidney disease stage IIIB secondary to nephrosclerosis and diabetic kidney disease with baseline creatinine near 2. #3. Hyperkalemia secondary to acute kidney injury and metabolic acidosis. #4. Metabolic acidosis secondary to acute kidney injury. Respiratory acidosis present as well. #5. Pneumonia, maintain on antibiotics. #6. Anemia with severe iron deficiency. #7. Hyperphosphatemia secondary to acute kidney injury. Plan: Maintain isotonic sodium bicarbonate drip to be run at 125 mL an hour. Maintain De Dios catheter for accurate I's and os. Further set 125 mg IV daily for 3 days. Second dose today. Consult vascular surgery for hemodialysis catheter placement. First treatment today.
--- NOTE | 2017-05-14 11:59 | PCN ---
PROCEDURE NOTE Intubation PREOPERATIVE DIAGNOSIS: Acute respiratory failure. POSTOPERATIVE DIAGNOSIS: Acute respiratory failure. A time-out was completed verifying correct patient, procedure, site, positioning , and implant(s) or special equipment if applicable. The patient was positioned appropriately and I used a #4 Davis blade to visualize the vocal cords and the patient was intubated by a #8 placed under direct laryngoscopy. Correct placement was confirmed by presence of bilateral breath sounds without air sounds in the abdomen on auscultation. An end-tidal CO2 monitor was also used to confirm placement of the ET tube. The patient tolerated the procedure well and there were no bedside complications or bleeding. MMODL / IJN: [id number] / [facility]USRadha
[2017-05-14 12:04] LABS: ABG HCO3 20 mmol/L (21-25); ABG PCO2 40 mmHg (35-45); ABG PH 7.33 (7.35-7.45); ABG PO2 207 mmHg (83-108); ABG TCO2 21 mmol/L (19-24)
[2017-05-14 12:05] LABS: ABG Oxygen Saturation 99.7 % (94-97)
--- NOTE | 2017-05-14 12:10 | PCN ---
PROCEDURE NOTE LEFT RADIAL ARTERIAL LINE INSERTION: DATE OF SERVICE: 05/14/2017 DESCRIPTION PROCEDURE: A time-out was completed verifying correct patient, procedure, site, positioning, and implant(s) or special equipment if applicable. Christiano's test was performed to ensure adequate perfusion. The patient's left wrist was prepped and draped in sterile fashion. 1% Lidocaine was used to anesthetize the area. An 18G Arrow arterial line was introduced in the radial artery. The catheter was threaded over the guidewire and needle was removed with appropriate pulsatile blood return. Blood loss was minimal. The catheter was then sutured in place to the skin and a sterile dressing applied. Perfusion to the extremity distal to the point of catheter insertion was checked and found to be adequate. The patient tolerated the procedure well and there were no immediate complications. MMODL / IJN: [id number] /
[2017-05-14 12:34] LABS: Glucose,Whole Blood 181 mg/dL (75-99)
[2017-05-14] MEDS: DEXTROSE 5% IN WATER 1,000 ML with SODIUM BICARB (1 MEQ/ML) 150 ML IV SCH ×3 (13:07→21:05)
[2017-05-14 13:49] LABS: RBC, Body Fluid 16400 /uL
[2017-05-14 13:53] LABS: INR 1.2 (<1.2); Prothrombin Time 11.7 sec (9.0-12.0)
[2017-05-14] MEDS: CLOPIDOGREL 75 MG TAB PO SCH (14:56)
[2017-05-14] MEDS: LEVOFLOXACIN 500MG-D5W PMX 500 MG in DEXTROSE/WATER 1 100ML.BAG IVPB SCH (14:56)
[2017-05-14] MEDS: VITAMIN E (DL,TOCOPHERYL ACET) 400 UNIT CAP PO SCH (14:56)
[2017-05-14] MEDS: ASPIRIN 81 MG PO SCH ×2 (14:56→21:31)
[2017-05-14] MEDS: METOPROLOL TARTRATE 5 MG/5 ML VIAL IVP PRN ×2 (16:16→16:29)
[2017-05-14] MEDS ORDERED: METOPROLOL TARTRATE 5 MG/5 ML VIAL IVP PRN (16:28)
--- NOTE | 2017-05-14 17:02 | PN ---
PROGRESS NOTE Mr. Magdaleno is a 67-year-old gentleman who was transferred to the intensive care unit because of respiratory distress this morning. The patient was noticed to be lethargic and somnolent as well as confused. Patient was getting progressively worse and subsequently was intubated. Patient's chest x-ray is suggestive of multilobar pneumonia. CT scan of the chest showed bilateral pneumonia with airspace disease in the left upper lobe. The patient is currently intubated. Heart rate is 60 per minute. Blood pressure is 90/60 mmHg. First and second heart sounds are normal. Lung examination reveals bilateral diminished air entry. FINAL IMPRESSION: This patient has acute respiratory failure secondary to bilateral pneumonia and currently is being intubated. Patient is stable cardiac-johnson. MMODL / IJN: [id number] /
[2017-05-14] MEDS: CLEVIDIPINE BUTYRATE 25 MG in EMPTY BAG 1 BAG IV SCH (17:09)
--- NOTE | 2017-05-14 17:10 | XR ---
EXAMINATION TYPE: XR chest 1V DATE OF EXAM: 05/14/2017 COMPARISON: Today HISTORY: Intubation TECHNIQUE: Single frontal view of the chest is obtained. FINDINGS: Endotracheal tube appears in good position. There is mild pulmonary congestion. There are infiltrates in the left lung. There are sternal wires. There is left axillary pacemaker with the lead tips over the right ventricle. IMPRESSION: There is left-sided pulmonary infiltrates that are the same or slightly worse than exam this morning. Endotracheal tube is in good position. Mild pulmonary vascular congestion.
[2017-05-14 17:30] LABS: Glucose,Whole Blood 177 mg/dL (75-99)
[2017-05-14 19:51] LABS: Glucose,Whole Blood 145 mg/dL (75-99)
[2017-05-14] MEDS ORDERED: VANCOMYCIN 1,500 MG in SODIUM CHLORIDE 0.9% 250 ML IVPB ONE (21:00)
[2017-05-14] MEDS: CHLORHEXIDINE GLUCONATE 15 ML CUP MUCOUS MEM SCH (21:08)
[2017-05-14] MEDS: ATORVASTATIN 40 MG TAB PO SCH (21:09)
[2017-05-14] MEDS: FOLIC ACID 1 MG TAB PO SCH (21:10)
[2017-05-14 23:48] LABS: Glucose,Whole Blood 210 mg/dL (75-99)
[2017-05-15] MEDS: PROPOFOL 1,000 MG/100 ML VIAL IV SCH ×7 (00:12→21:52)
--- NOTE | 2017-05-15 00:36 | P.PN ---
Subjective Progress Note Date: 05/14/17 Principal diagnosis: Shortness of breath This patient is a 67-year-old male with a known history of COPD, coronary artery bypass surgery 2 years back and [facility] for underlying coronary artery disease, ischemic artery myopathy and has had an AICD in place presented to the hospital because of increased cough congestion and worsening shortness of breath.. The patient is an ex-smoker. He also has CKD, hypertension , hyperlipidemia and diabetes mellitus-2 05/13/2017 Patient was found to be having worsening short of breath and lung examination showed diminished breath sounds this morning. Patient was seen by pulmonary and ABC showed a pH of 7.2 with a pCO2 of 50 and a pO2 of 78. Patient is drowsy at this time. Patient was transferred to MICU Patient is currently on BiPAP machine and seems to be lethargic and non- arousable. Complete review of systems could not be obtained from the patient. current medications reviewed 05/14/2017 Patient was intubated due to worsening short of breath today morning. Patient was also started on hemodialysis due to worsening renal function. Currently sedated and intubated. A CAT scan of the chest was also done yesterday that showed bilateral pneumonia with airspace disease in the left upper lobe and some minimal airspace disease present in the right lung base. Complete review of systems could not be obtained from the patient. Objective - Vital Signs Vital signs: Vital Signs Temp 97.7 F 05/14/17 16:00 Pulse 65 05/14/17 21:00 Resp 28 H 05/14/17 21:00 BP 189/72 05/14/17 17:10 Pulse Ox 95 05/14/17 21:00 Intake & Output 05/14/17 05/14/17 05/15/17 06:59 18:59 06:59 Intake Total 1786.25 1271.049 414.867 Output Total 95 830 108 Balance 1691.25 441.049 306.867 Weight 93.2 kg 93.2 kg Intake: IV 1685 910 265 .9 10 110 40 Dextrose 5% in Water 1, 1175 750 225 000 ml @ 75 mls/hr IV . [id number] AGUSTIN with Sodium Bicarb (1 Meq/ml) 150 ml Rx#:[id number] Sodium Chloride 0.9% 250 500 ml @ 500 mls/hr IV .Q30M ONE Rx#:[id number] cefTAZidime 1 gm In 50 Sodium Chloride 0.9% 50 ml @ 100 mls/hr IVPB DAILY [facility] Rx#:[id number] Intake, IV Titration 101.25 341.049 109.867 Amount Clevidipine Butyrate 25 17.299 9.867 mg In Empty Bag 1 bag @ 1 MG/HR 2 mls/hr IV .Q24H AGUSTIN Rx#:[id number] Dextrose 5% in Water 1, 75 000 ml @ 75 mls/hr IV . [id number] AGUSTIN with Sodium Bicarb (1 Meq/ml) 150 ml Rx#:[id number] Norepinephrin 4 mg-0.9% 26.25 223.75 Ns Pmx 4 mg In 250 ml @ Titrate IV .Q0M AGUSTIN Rx#: [id number] Propofol 1,000 mg In 100 100 100 ml @ Titrate IV .Q0M AGUSTIN Rx#:[id number] Tube Feeding 20 40 Output: Gastric Drainage 150 Urine 95 680 108 Other: Voiding Method Indwelling Catheter Indwelling Catheter Indwelling Catheter # Voids 3 # Bowel Movements 1 ABP, PAP, CO, CI - Last Documented Arterial Blood Pressure 135/43 - Exam PHYSICAL EXAMINATION: Patient is lying in the bed comfortably, no acute distress, patient is on mechanical ventilation HEENT: Normocephalic. Neck is supple. Pupils reactive. Nostrils clear. Oral cavity is moist. Ears reveal no drainage. Neck reveals no JVD, carotid bruits, or thyromegaly. CHEST EXAMINATION: Trachea is central. Symmetrical expansion. Bilateral air entry is present. Rhonchi positive bilaterally CARDIAC: Normal S1, S2 with no gallops. No murmurs ABDOMEN: Soft. Bowel sounds normal. No organomegaly. No abdominal bruits. Extremities: 1+ edema. No clubbing or cyanosis Neurologically. Patient is non-arousable. No focal deficits noted Skin: No rash or skin lesions. Psychiatric: Could not bases at this time Musculoskeletal: No joint swelling or deformity. Normal range of motion. - Labs CBC & Chem 7: 05/14/17 04:15 05/14/17 04:12 Labs: Abnormal Lab Results - Last 24 Hours (Table) 05/13/17 05/14/17 05/14/17 Range/Units 23:19 00:05 04:09 RBC (4.30-5.90) m/uL Hgb (13.0-17.5) gm/dL Hct (39.0-53.0) % MCHC (31.0-37.0) g/dL RDW (11.5-15.5) % Plt Count (150-450) k/uL Neutrophils # (1.3-7.7) k/uL Lymphocytes # (1.0-4.8) k/uL INR (<1.2) ABG pH 7.24 L (7.35-7.45) ABG pCO2 48 H (35-45) mmHg ABG pO2 (83-108) mmHg ABG HCO3 20 L (21-25) mmol/L ABG O2 Saturation (94-97) % Sodium (137-145) mmol/L Potassium 6.0 H (3.5-5.1) mmol/L Carbon Dioxide (22-30) mmol/L BUN (9-20) mg/dL Creatinine (0.66-1.25) mg/dL Glucose (74-99) mg/dL POC Glucose (mg/dL) 103 H (75-99) mg/dL Calcium (8.4-10.2) mg/dL Phosphorus (2.5-4.5) mg/dL 05/14/17 05/14/17 05/14/17 Range/Units 04:12 04:15 04:15 RBC 3.10 L (4.30-5.90) m/uL Hgb 8.4 L (13.0-17.5) gm/dL Hct 28.3 L (39.0-53.0) % MCHC 29.8 L (31.0-37.0) g/dL RDW 17.0 H (11.5-15.5) % Plt Count 123 L (150-450) k/uL Neutrophils # 9.1 H (1.3-7.7) k/uL Lymphocytes # 0.2 L (1.0-4.8) k/uL INR 1.2 H (<1.2) ABG pH (7.35-7.45) ABG pCO2 (35-45) mmHg ABG pO2 (83-108) mmHg ABG HCO3 (21-25) mmol/L ABG O2 Saturation (94-97) % Sodium 132 L (137-145) mmol/L Potassium 5.3 H (3.5-5.1) mmol/L Carbon Dioxide 17 L (22-30) mmol/L BUN 105 H* (9-20) mg/dL Creatinine 5.80 H* (0.66-1.25) mg/dL Glucose 153 H (74-99) mg/dL POC Glucose (mg/dL) (75-99) mg/dL Calcium 8.2 L (8.4-10.2) mg/dL Phosphorus 8.7 H* (2.5-4.5) mg/dL 05/14/17 05/14/17 05/14/17 Range/Units 08:28 11:50 12:33 RBC (4.30-5.90) m/uL Hgb (13.0-17.5) gm/dL Hct (39.0-53.0) % MCHC (31.0-37.0) g/dL RDW (11.5-15.5) % Plt Count (150-450) k/uL Neutrophils # (1.3-7.7) k/uL Lymphocytes # (1.0-4.8) k/uL INR (<1.2) ABG pH 7.33 L (7.35-7.45) ABG pCO2 (35-45) mmHg ABG pO2 207 H (83-108) mmHg ABG HCO3 20 L (21-25) mmol/L ABG O2 Saturation 99.7 H (94-97) % Sodium (137-145) mmol/L Potassium (3.5-5.1) mmol/L Carbon Dioxide (22-30) mmol/L BUN (9-20) mg/dL Creatinine (0.66-1.25) mg/dL Glucose (74-99) mg/dL POC Glucose (mg/dL) 163 H 181 H (75-99) mg/dL Calcium (8.4-10.2) mg/dL Phosphorus (2.5-4.5) mg/dL 05/14/17 05/14/17 Range/Units 17:28 19:50 RBC (4.30-5.90) m/uL Hgb (13.0-17.5) gm/dL Hct (39.0-53.0) % MCHC (31.0-37.0) g/dL RDW (11.5-15.5) % Plt Count (150-450) k/uL Neutrophils # (1.3-7.7) k/uL Lymphocytes # (1.0-4.8) k/uL INR (<1.2) ABG pH (7.35-7.45) ABG pCO2 (35-45) mmHg ABG pO2 (83-108) mmHg ABG HCO3 (21-25) mmol/L ABG O2 Saturation (94-97) % Sodium (137-145) mmol/L Potassium (3.5-5.1) mmol/L Carbon Dioxide (22-30) mmol/L BUN (9-20) mg/dL Creatinine (0.66-1.25) mg/dL Glucose (74-99) mg/dL POC Glucose (mg/dL) 177 H 145 H (75-99) mg/dL Calcium (8.4-10.2) mg/dL Phosphorus (2.5-4.5) mg/dL Microbiology - Last 24 Hours (Table) 05/13/17 12:33 Urine Culture - Final Urine,Catheterized 05/14/17 11:10 Acid Fast Bacilli Culture - Preliminary Bronchial Washings - Random 05/14/17 11:10 Bronchial Washings Culture - Preliminary Bronchial Washings - Random 05/14/17 11:10 Fungal Culture - Preliminary Bronchial Washings - Random 05/11/17 11:50 Gram Stain - Final Sputum Sputum Culture - Final 05/11/17 00:50 Blood Culture - Preliminary Blood No Growth after 72 hours Assessment and Plan Plan: #1 acute hypoxic and hypercapnic respiratory failure. Currently on BiPAP #2 acute COPD exacerbation #3 left lung pneumonia suspected gram-negative on admission present #4 diabetes type 2 insulin-dependent #5 acute on chronic CHF with diastolic dysfunction ejection fraction 55-50% #6 severe pulmonary hypertension #7 hypertension #8 Hyperlipidemia #9 History of previous smoking #10 acute on chronic kidney disease stage IV #11 CKD likely due to diabetic nephropathy and hypertensive nephrosclerosis #12 peripheral vascular disease #13 coronary artery disease status post bypass graft #14history of cardiac block status post pacemaker insertion/AICD insertion Plan: Patient is on mechanical ventilator. Continue the antibiotics and breathing treatments and IV steroids. Continue to follow renal function. Patient will be getting hemodialysis today. Pulmonary and nephrology is following this patient. Prognosis is guarded with multiple medical problems and comorbid conditions. Further recommendations based on the clinical course. Time with Patient: Greater than 30
[2017-05-15] MEDS: CLEVIDIPINE BUTYRATE 25 MG in EMPTY BAG 1 BAG IV SCH ×3 (01:21→19:30)
[2017-05-15 04:07] LABS: Glucose,Whole Blood 252 mg/dL (75-99)
[2017-05-15] MEDS: INSULIN LISPRO (humaLOG) 300 UNIT/3 ML VIAL SQ SCH ×4 (04:08→16:56)
[2017-05-15 04:33] LABS: Anisocytosis Slight; Basophils % (A) 0 %; CH 26.3; CHCM 31.1; Eosinophils % (A) 0 %; HCT 23.6 % (39.0-53.0); HDW 2.76; HGB 7.8 gm/dL (13.0-17.5); Hypochromasia Slight; Luc # (Auto) 0.11; Luc % (Auto) 2; Lymphocytes # (A) 0.1 k/uL (1.0-4.8); Lymphocytes % (A) 3 %; MCH 28.1 pg (25.0-35.0); MCHC 33.2 g/dL (31.0-37.0); Monocytes # (A) 0.2 k/uL (0-1.0); Monocytes % (A) 3 %; Neutrophils # (A) 4.3 k/uL (1.3-7.7); Neutrophils % (A) 91 %; RBC 2.78 m/uL (4.30-5.90); WBC 4.8 k/uL (3.8-10.6); WBC (Perox) 5.02
[2017-05-15 04:37] LABS: MCV 84.6 fL (80.0-100.0)
[2017-05-15 04:45] LABS: Calcium 7.5 mg/dL (8.4-10.2); Magnesium 1.9 mg/dL (1.6-2.3); Phosphorous 5.8 mg/dL (2.5-4.5); Potassium 3.8 mmol/L (3.5-5.1)
[2017-05-15 05:04] LABS: ABG Base Excess 0.6 mmol/L; ABG HCO3 24 mmol/L (21-25); ABG PCO2 31 mmHg (35-45); ABG PO2 98 mmHg (83-108); ABG TCO2 24 mmol/L (19-24)
[2017-05-15] MEDS: methylPREDNISolone SOD SUCCI 125 MG/2 ML VIAL IV SCH (06:03)
--- NOTE | 2017-05-15 07:00 | XR ---
EXAMINATION TYPE: XR chest 1V portable DATE OF EXAM: 05/15/2017 HISTORY: Tube placement. REFERENCE: Previous study dated 05/14/2017. FINDINGS: There has been a midline sternotomy. The patient is ET tube and NG tube remain in place, unchanged in appearance. A multilead pacing devic e is noted on the left. The heart enlarged. There is bibasilar airspace disease. This may have improved slightly on the left. There is vascular congestion without viraj edema. I could not exclude a small left effusion. IMPRESSION: 1. CARDIOMEGALY. 2. PATCHY BILATERAL INFILTRATES. THERE MAY BE SOME IMPROVED AERATION AT THE LEFT LUNG BASE. 3. I COULD NOT EXCLUDE A SMALL LEFT EFFUSION.
--- NOTE | 2017-05-15 07:16 | P.PN ---
Subjective Progress Note Date: 05/15/17 A 67-year-old male patient who is being seen in consultation upon the request of Dr. Jerez for worsening shortness of breath. At the time of my evaluation , the patient was noted to be quite lethargic and somnolent. He was arousable. He had increased cough and congestion. He had diminished breath sounds throughout his lung pearson bilaterally. He was placed on oxygen at 3 L/m nasal cannula. A blood gas was ordered and it showed a pH of 7.2 with a pCO2 of 50 and a pO2 of 78 at 3 L/m nasal cannula. The patient was also found to be in acute on top of chronic renal failure with an underlying metabolic acidosis and acute hyperkalemia with a potassium level of 5.9. For that reason I made recommendations for this patient to be transferred to the intensive care unit. I was also told that the patient was having hypoglycemic events and he was placed on D5 half-normal saline at rate of 70 and an hour. This patient has history of COPD. The patient is an ex-smoker. His undergone coronary artery bypass surgery 2 years back and [facility] for underlying coronary artery disease. He is also known to have ischemic artery myopathy and has had an AICD in place. He suffers from chronic renal failure. He has hypertension and hyperlipidemia and diabetes mellitus. He presented to the hospital because of increased cough congestion and worsening shortness of breath. No major swelling in lower extremities. No orthopnea. No peripheral edema. His white cell count was nonelevated. His hemoglobin was low and the patient has chronic anemia with a hemoglobin of 8.3-8.4 and he was given IV iron. He was being diuresis with IV Lasix and diuretics got placed on hold as the patient developed an acute on top of chronic renal failure. The patient is also covered with broad-spectrum antibiotics and is currently on IV Fortaz. On 05/14/2017 I'm seeing this patient for a follow-up. The patient is quite lethargic and somnolent and he still continues to have significant limitations level of consciousness. Overnight he was also agitated and confused and he had required a dose of Ativan 1 mg which controlled his agitation. Overnight he was also kept on a BiPAP at a pressure of 12/5 cm of water and FiO2 of 40%. He continues to be oliguric. His renal function is progressively getting worse in his creatinine is up to 5.8. He was started on a bicarb drip yesterday and his serum bicarb is up to 17 and he has an anion gap of 17. The patient's chest x- ray from today showing multilobar pneumonia. A CAT scan of the chest was also done yesterday that showed bilateral pneumonia with airspace disease in the left upper lobe and some minimal airspace disease present in the right lung base. He has a weak cough. He is having difficulties in breathing and up his rest or secretions. His was unable to swallow today due to his marked diminishment in level of consciousness. And based on all this, I made decision to intubate the patient and place him on a mechanical ventilator. I also contacted nephrology and the patient is being considered for hemodialysis today. He is diabetic. His blood sugars have been within the hypoglycemic range and his most recent blood sugar is 163. He remains on D5 with 3 A of bicarb at the rate of 75 mL an hour. On 05/15/2017 the patient is being seen in follow-up in the intensive care unit. As mentioned, the patient was intubated and placed on a mechanical ventilator. This morning his well sedated and is calm and comfortable on Diprivan running at 50 mics. He is also on assist control mode of ventilation at the rate of 24, tidal volume of 500, FiO2 of 60% and a PEEP of 5. Chest x- ray from this morning shows adequate positioning of the orotracheal and orogastric tube. There is some atelectatic changes and left lung base. Overall the aeration is improved. The patient had a bronchoscopy yesterday and the bronchial lavage has been sent for microbial analysis and the results are still pending for now. Meanwhile he is on a broad-spectrum antibiotic coverage including a combination of cefepime, Levaquin and vancomycin. No fever. No hypotension. No chills. The patient is producing diminished urine output and he is still in acute kidney injury. A dialysis catheter was inserted yesterday and received his first session of dialysis yesterday. No volume was taken off and the patient had strict dialysis. The patient is improving in terms of his metabolic derangements. In fact on today's blood gases having a component of acute Minnie alkalosis with a pH of 7.5 and a pCO2 of 31 and pO2 of 98. As for his serum bicarb, there is up to 22 and the creatinine is down to 4.12. The patient is on a sliding scale insulin coverage for blood sugar control. He was having issues with elevated blood pressure post intubation. Currently is on a clevidipine running at 1 mg an hour and his blood pressure is under good control. Objective - Vital Signs Vital signs: Vital Signs Temp 97.4 F L 05/15/17 04:00 Pulse 60 05/15/17 06:00 Resp 24 05/15/17 06:00 BP 189/72 05/14/17 17:10 Pulse Ox 96 05/15/17 06:00 Intake & Output 05/14/17 05/15/17 05/15/17 18:59 06:59 18:59 Intake Total 4959.129 4611.841 Output Total 830 354 Balance 075.901 2120.841 Weight 93.2 kg 91.7 kg Intake: IV 910 1110 .9 110 210 Dextrose 5% in Water 1, 750 900 000 ml @ 75 mls/hr IV . [id number] AGUSTIN with Sodium Bicarb (1 Meq/ml) 150 ml Rx#:[id number] cefTAZidime 1 gm In 50 Sodium Chloride 0.9% 50 ml @ 100 mls/hr IVPB DAILY AGUSTIN Rx#:[id number] Intake, IV Titration 341.049 467.841 Amount Clevidipine Butyrate 25 17.299 79.301 mg In Empty Bag 1 bag @ 1 MG/HR 2 mls/hr IV .Q24H AGUSTIN Rx#:[id number] Norepinephrin 4 mg-0.9% 223.75 Ns Pmx 4 mg In 250 ml @ Titrate IV .Q0M AGUSTIN Rx#: [id number] Propofol 1,000 mg In 100 100 388.54 ml @ Titrate IV .Q0M AGUSTIN Rx#:[id number] Tube Feeding 20 250 Other 60 Output: Gastric Drainage 150 Urine 680 354 Other: Voiding Method Indwelling Catheter Indwelling Catheter # Voids 3 # Bowel Movements 1 ABP, PAP, CO, CI - Last Documented Arterial Blood Pressure 131/44 - Exam Patient is well sedated, intubated on a mechanical ventilator. Orogastric and orotracheal tube are both in place. He is calm and comfortable. My normal had neck is short and thick and supple and there is no significant neck veins. No JVDs. No goiter.Head exam was generally normal. There was no scleral icterus or corneal arcus. Mucous membranes were moist. Lungs sounds are diminished bilaterally otherwise clear in breast on that equal and symmetrical.Cardiac exam revealed the PMI to be normally situated and sized. The rhythm was regular and no extrasystoles were noted during several minutes of auscultation. The first and second heart sounds were normal and physiologic splitting of the second heart sound was noted. There were no murmurs, rubs, clicks, or gallops.Abdominal exam revealed normal bowel sounds. The abdomen was soft, non- tender, and without masses, organomegaly, or appreciable enlargement of the abdominal aorta. Patient is obese and organs cannot be accurately palpated on today's evaluation.Examination of the extremities revealed easily palpable radial, femoral and pedal pulses. There was no cyanosis, clubbing or edema. Neurologically the patient is sedated yet he is still moving all 4 extremities upon lowering sedation.Examination of the skin revealed no evidence of significant rashes, suspicious appearing nevi or other concerning lesions. - Labs CBC & Chem 7: 05/15/17 04:20 05/15/17 04:20 Labs: Abnormal Lab Results - Last 24 Hours (Table) 05/14/17 05/14/17 05/14/17 Range/Units 04:15 08:28 11:50 RBC (4.30-5.90) m/uL Hgb (13.0-17.5) gm/dL Hct (39.0-53.0) % RDW (11.5-15.5) % Plt Count (150-450) k/uL Lymphocytes # (1.0-4.8) k/uL INR 1.2 H (<1.2) ABG pH 7.33 L (7.35-7.45) ABG pCO2 (35-45) mmHg ABG pO2 207 H (83-108) mmHg ABG HCO3 20 L (21-25) mmol/L ABG O2 Saturation 99.7 H (94-97) % Sodium (137-145) mmol/L BUN (9-20) mg/dL Creatinine (0.66-1.25) mg/dL Glucose (74-99) mg/dL POC Glucose (mg/dL) 163 H (75-99) mg/dL Calcium (8.4-10.2) mg/dL Phosphorus (2.5-4.5) mg/dL 05/14/17 05/14/17 05/14/17 Range/Units 12:33 17:28 19:50 RBC (4.30-5.90) m/uL Hgb (13.0-17.5) gm/dL Hct (39.0-53.0) % RDW (11.5-15.5) % Plt Count (150-450) k/uL Lymphocytes # (1.0-4.8) k/uL INR (<1.2) ABG pH (7.35-7.45) ABG pCO2 (35-45) mmHg ABG pO2 (83-108) mmHg ABG HCO3 (21-25) mmol/L ABG O2 Saturation (94-97) % Sodium (137-145) mmol/L BUN (9-20) mg/dL Creatinine (0.66-1.25) mg/dL Glucose (74-99) mg/dL POC Glucose (mg/dL) 181 H 177 H 145 H (75-99) mg/dL Calcium (8.4-10.2) mg/dL Phosphorus (2.5-4.5) mg/dL 05/14/17 05/15/17 05/15/17 Range/Units 23:46 04:06 04:20 RBC 2.78 L (4.30-5.90) m/uL Hgb 7.8 L (13.0-17.5) gm/dL Hct 23.6 L (39.0-53.0) % RDW 16.0 H (11.5-15.5) % Plt Count 138 L (150-450) k/uL Lymphocytes # 0.1 L (1.0-4.8) k/uL INR (<1.2) ABG pH (7.35-7.45) ABG pCO2 (35-45) mmHg ABG pO2 (83-108) mmHg ABG HCO3 (21-25) mmol/L ABG O2 Saturation (94-97) % Sodium (137-145) mmol/L BUN (9-20) mg/dL Creatinine (0.66-1.25) mg/dL Glucose (74-99) mg/dL POC Glucose (mg/dL) 210 H 252 H (75-99) mg/dL Calcium (8.4-10.2) mg/dL Phosphorus (2.5-4.5) mg/dL 05/15/17 05/15/17 Range/Units 04:20 04:21 RBC (4.30-5.90) m/uL Hgb (13.0-17.5) gm/dL Hct (39.0-53.0) % RDW (11.5-15.5) % Plt Count (150-450) k/uL Lymphocytes # (1.0-4.8) k/uL INR (<1.2) ABG pH 7.50 H (7.35-7.45) ABG pCO2 31 L (35-45) mmHg ABG pO2 (83-108) mmHg ABG HCO3 (21-25) mmol/L ABG O2 Saturation 98.0 H (94-97) % Sodium 134 L (137-145) mmol/L BUN 79 H (9-20) mg/dL Creatinine 4.12 H (0.66-1.25) mg/dL Glucose 240 H (74-99) mg/dL POC Glucose (mg/dL) (75-99) mg/dL Calcium 7.5 L (8.4-10.2) mg/dL Phosphorus 5.8 H (2.5-4.5) mg/dL Microbiology - Last 24 Hours (Table) 05/14/17 11:10 Gram Stain - Preliminary Bronchial Washings - Random Bronchial Washings Culture - Preliminary 05/14/17 11:10 Acid Fast Bacilli Smear - Final Bronchial Washings - Random Acid Fast Bacilli Culture - Preliminary 05/11/17 00:50 Blood Culture - Preliminary Blood No Growth after 96 hours 05/13/17 12:33 Urine Culture - Final Urine,Catheterized 05/14/17 11:10 Fungal Culture - Preliminary Bronchial Washings - Random 05/11/17 11:50 Gram Stain - Final Sputum Sputum Culture - Final Assessment and Plan Plan: Assessment 1 bilateral pneumonia worse on the left with secondary acute hypoxic respiratory failure. Patient is currently intubated on a mechanical ventilator. Blood gases from this morning showed a component of respiratory alkalosis. There is improvement in the examination of the left lung base. Bronchoscopy and bronchial lavage was done and microbial cultures still pending for now. Meanwhile the patient is covered with broad-spectrum antibiotics and he is on a combination of cefepime, Levaquin and vancomycin. 2 acute COPD exacerbation secondary to left lung pneumonia 3 acute hypertensive reaction currently on clevidipine drip for blood pressure control 4 congestion heart failure, ischemic cardiomyopathy and the most recent echocardiogram shows a low normal ejection fraction with an EF around 50-55%, severely dilated LA, severe pulmonary hypertension with a PA pressure of 68 5 coronary artery disease with previous coronary artery bypass surgery 6 history of cardiac block status post pacemaker insertion/AICD insertion 7 acute on top of chronic renal failure, likely secondary to diuresis. Patient continued to be oliguric with diminished urine output and he developed also significant metabolic acidosis. He was becoming encephalopathic. A hemodialysis catheter was inserted and he received his first session of dialysis yesterday. 8 chronic renal failure with stage III to 4 chronic kidney disease 9 diabetes mellitus, currently in size Blood sugar control 10 hypertension 11 hyperlipidemia. 12 hyperkalemia, improved 15 peripheral vascular disease 14 previous history of GI bleed 15 chronic iron deficiency 16 metabolic acidosis currently improved Plan The patient is quite stable and will continue the current treatment. I noted the respiratory alkalosis and the patient will have his tidal volumes dropped down to 450 and up-to-date to 20. A repeat blood gases will be obtained around known times a day. Also dropped Solu Medrol to 40 mg every 12 hours. Stop the bicarb infusion and switch this patient to a normal saline infusions the rate of 50 mL an hour. Continue to tube feeds. Into the broad-spectrum antibiotics. Awaiting the results of the bronchioloalveolar lavage. Continue cleviprex drip and titrated to the blood pressure. Size Insulin coverage and will do the blood sugar will get tighter controlled once the patient's at the lower dose of IV Solu Medrol in the D5 bicarb infusion has been discontinued. Another session of dialysis today without ultrafiltration. Nephrology is on the case. We'll continue to follow. Not ready for weaning yet. May be ready for tomorrow. We'll keep him on a mechanical ventilator for today. Critically care evaluation. More than 30 minutes. Time with Patient: Greater than 30
[2017-05-15] MEDS: IPRATROPIUM-ALBUTEROL 3 ML NEB INHALATION SCH ×4 (07:29→18:51)
[2017-05-15 08:05] LABS: Glucose,Whole Blood 198 mg/dL (75-99)
[2017-05-15] MEDS ORDERED: HEPARIN SODIUM,PORCINE 5,000 UNIT/ML 1 ML VIAL ONE (09:35)
[2017-05-15] MEDS: ASPIRIN 81 MG PO SCH ×2 (10:10→20:47)
[2017-05-15] MEDS: CLOPIDOGREL 75 MG TAB PO SCH (10:10)
[2017-05-15] MEDS: VITAMIN E (DL,TOCOPHERYL ACET) 400 UNIT CAP PO SCH (10:10)
[2017-05-15] MEDS: FERROUS SULFATE 325 MG TAB PO SCH ×2 (10:10→16:44)
[2017-05-15] MEDS: ENOXAPARIN 30 MG/0.3 ML SYRINGE SQ SCH (10:11)
[2017-05-15] MEDS: CHLORHEXIDINE GLUCONATE 15 ML CUP MUCOUS MEM SCH ×2 (10:11→20:48)
[2017-05-15] MEDS: SODIUM CHLORIDE 0.9% 1,000 ML IV SCH (10:11)
--- NOTE | 2017-05-15 10:12 | P.PN ---
Subjective Patient is seen in follow-up for acute kidney injury on chronic kidney disease. Patient has chronic kidney disease stage IIIB secondary to nephrosclerosis and diabetic kidney disease with baseline creatinine near 2. His creatinine peaked at 5.8 this admission. Diuretics have been discontinued. Patient appeared quite lethargic on May 13 and ABG was suggestive of mixed metabolic and respiratory acidosis. He is currently in intensive care unit requiring ventilator support. He was oliguric but urine output now is in the range of 25-30 mL an hour. He is off all vasopressors at this time. Tube feeds ave been started. Vital signs are stable. Requiring vasopressors. General: The patient appeared well nourished and normally developed. HEENT: Head exam is unremarkable. Neck is without jugular venous distension. LUNGS: Scattered rhonchi. Breath sounds decreased. HEART: Rate and Rhythm are regular. First and second heart sounds normal. No murmurs, rubs or gallops. ABDOMEN: Abdominal exam reveals normal bowel sounds. Non-tender and non- distended. EXTREMITITES: No clubbing, cyanosis, or edema. Objective - Vital Signs Vital signs: Vital Signs Temp 98.3 F 05/15/17 08:00 Pulse 59 L 05/15/17 09:00 Resp 21 05/15/17 09:00 BP 189/72 05/14/17 17:10 Pulse Ox 99 05/15/17 09:00 Intake & Output 05/14/17 05/15/17 05/15/17 18:59 06:59 18:59 Intake Total 0484.342 7361.841 360 Output Total 830 354 85 Balance 882.525 6221.841 275 Weight 93.2 kg 91.7 kg Intake: IV 910 1110 210 .9 110 210 60 Dextrose 5% in Water 1, 750 900 000 ml @ 75 mls/hr IV . [id number] AGUSTIN with Sodium Bicarb (1 Meq/ml) 150 ml Rx#:[id number] Sodium Chloride 0.9% 1, 100 000 ml @ 50 mls/hr IV . Q20H AGUSTIN Rx#:[id number] cefTAZidime 0.5 gm In 50 Sodium Chloride 0.9% 50 ml @ 100 mls/hr IVPB DAILY AGUSTIN Rx#:[id number] cefTAZidime 1 gm In 50 Sodium Chloride 0.9% 50 ml @ 100 mls/hr IVPB DAILY AGUSTIN Rx#:[id number] Intake, IV Titration 341.049 467.841 Amount Clevidipine Butyrate 25 17.299 79.301 mg In Empty Bag 1 bag @ 1 MG/HR 2 mls/hr IV .Q24H AGUSTIN Rx#:[id number] Norepinephrin 4 mg-0.9% 223.75 Ns Pmx 4 mg In 250 ml @ Titrate IV .Q0M AGUSTIN Rx#: [id number] Propofol 1,000 mg In 100 100 388.54 ml @ Titrate IV .Q0M AGUSTIN Rx#:[id number] Tube Feeding 20 250 150 Other 60 Output: Gastric Drainage 150 Urine 680 354 85 Other: Voiding Method Indwelling Catheter Indwelling Catheter Indwelling Catheter # Voids 3 # Bowel Movements 1 ABP, PAP, CO, CI - Last Documented Arterial Blood Pressure 155/48 - Labs CBC & Chem 7: 05/15/17 04:20 05/15/17 04:20 Labs: Abnormal Lab Results - Last 24 Hours (Table) 05/14/17 05/14/17 05/14/17 Range/Units 04:15 11:50 12:33 RBC (4.30-5.90) m/uL Hgb (13.0-17.5) gm/dL Hct (39.0-53.0) % RDW (11.5-15.5) % Plt Count (150-450) k/uL Lymphocytes # (1.0-4.8) k/uL INR 1.2 H (<1.2) ABG pH 7.33 L (7.35-7.45) ABG pCO2 (35-45) mmHg ABG pO2 207 H (83-108) mmHg ABG HCO3 20 L (21-25) mmol/L ABG O2 Saturation 99.7 H (94-97) % Sodium (137-145) mmol/L BUN (9-20) mg/dL Creatinine (0.66-1.25) mg/dL Glucose (74-99) mg/dL POC Glucose (mg/dL) 181 H (75-99) mg/dL Calcium (8.4-10.2) mg/dL Phosphorus (2.5-4.5) mg/dL 05/14/17 05/14/17 05/14/17 Range/Units 17:28 19:50 23:46 RBC (4.30-5.90) m/uL Hgb (13.0-17.5) gm/dL Hct (39.0-53.0) % RDW (11.5-15.5) % Plt Count (150-450) k/uL Lymphocytes # (1.0-4.8) k/uL INR (<1.2) ABG pH (7.35-7.45) ABG pCO2 (35-45) mmHg ABG pO2 (83-108) mmHg ABG HCO3 (21-25) mmol/L ABG O2 Saturation (94-97) % Sodium (137-145) mmol/L BUN (9-20) mg/dL Creatinine (0.66-1.25) mg/dL Glucose (74-99) mg/dL POC Glucose (mg/dL) 177 H 145 H 210 H (75-99) mg/dL Calcium (8.4-10.2) mg/dL Phosphorus (2.5-4.5) mg/dL 05/15/17 05/15/17 05/15/17 Range/Units 04:06 04:20 04:20 RBC 2.78 L (4.30-5.90) m/uL Hgb 7.8 L (13.0-17.5) gm/dL Hct 23.6 L (39.0-53.0) % RDW 16.0 H (11.5-15.5) % Plt Count 138 L (150-450) k/uL Lymphocytes # 0.1 L (1.0-4.8) k/uL INR (<1.2) ABG pH (7.35-7.45) ABG pCO2 (35-45) mmHg ABG pO2 (83-108) mmHg ABG HCO3 (21-25) mmol/L ABG O2 Saturation (94-97) % Sodium 134 L (137-145) mmol/L BUN 79 H (9-20) mg/dL Creatinine 4.12 H (0.66-1.25) mg/dL Glucose 240 H (74-99) mg/dL POC Glucose (mg/dL) 252 H (75-99) mg/dL Calcium 7.5 L (8.4-10.2) mg/dL Phosphorus 5.8 H (2.5-4.5) mg/dL 10/14/17 10/14/17 Range/Units 04:21 08:04 RBC (4.30-5.90) m/uL Hgb (13.0-17.5) gm/dL Hct (39.0-53.0) % RDW (11.5-15.5) % Plt Count (150-450) k/uL Lymphocytes # (1.0-4.8) k/uL INR (<1.2) ABG pH 7.50 H (7.35-7.45) ABG pCO2 31 L (35-45) mmHg ABG pO2 (83-108) mmHg ABG HCO3 (21-25) mmol/L ABG O2 Saturation 98.0 H (94-97) % Sodium (137-145) mmol/L BUN (9-20) mg/dL Creatinine (0.66-1.25) mg/dL Glucose (74-99) mg/dL POC Glucose (mg/dL) 198 H (75-99) mg/dL Calcium (8.4-10.2) mg/dL Phosphorus (2.5-4.5) mg/dL Microbiology - Last 24 Hours (Table) 05/14/17 11:10 Gram Stain - Preliminary Bronchial Washings - Random Bronchial Washings Culture - Preliminary 05/14/17 11:10 Acid Fast Bacilli Smear - Final Bronchial Washings - Random Acid Fast Bacilli Culture - Preliminary 05/11/17 00:50 Blood Culture - Preliminary Blood No Growth after 96 hours 05/13/17 12:33 Urine Culture - Final Urine,Catheterized 05/14/17 11:10 Fungal Culture - Preliminary Bronchial Washings - Random 05/11/17 11:50 Gram Stain - Final Sputum Sputum Culture - Final Assessment and Plan Plan: Assessment: #1. Acute kidney injury secondary to ATN secondary to pneumonia and further worsened with the use of diuretics and MIC inhibitor. Patient also hypotensive requiring vasopressors. Postvoid residual was 170. Creatinine peaked at 5.8 this admission. He was started on hemodialysis and has undergone 2 treatments so far. #2. Chronic kidney disease stage IIIB secondary to nephrosclerosis and diabetic kidney disease with baseline creatinine near 2. #3. Hyperkalemia secondary to acute kidney injury and metabolic acidosis. Improved postdialysis. #4. Metabolic acidosis secondary to acute kidney injury. Respiratory acidosis present as well. Improved. #5. Pneumonia, maintain on antibiotics. #6. Anemia with severe iron deficiency. #7. Hyperphosphatemia secondary to acute kidney injury. Improved postdialysis. Plan: Bicarb drip has been discontinued. Continue normal saline at 50 mL an hour. Maintain tube feeds. Maintain De Dios catheter for accurate I's and os. Further set 125 mg IV daily for 3 days. Third dose today. he completed second treatment of hemodialysis this morning. I will plan on holding dialysis tomorrow and monitor renal function for recovery.
[2017-05-15] MEDS: SODIUM FERRIC GLUCONAT-SUCROSE 125 MG in SODIUM CHLORIDE 0.9% 100 ML IVPB SCH (10:24)
[2017-05-15] MEDS ORDERED: POTASSIUM CHLORIDE ORAL LIQUID 40 MEQ/30 ML CUP PO ONE (10:29)
[2017-05-15 11:56] LABS: Glucose,Whole Blood 207 mg/dL (75-99)
[2017-05-15 12:07] LABS: Hepatitis B Surface Antibody Non-Reactive (Non-Reactive)
[2017-05-15] MEDS: methylPREDNISolone SOD SUCCI 40 MG/ML 1 ML VIAL IV SCH ×2 (12:07→17:48)
[2017-05-15 12:34] LABS: ABG Base Excess 2.4 mmol/L; ABG HCO3 25 mmol/L (21-25); ABG PCO2 33 mmHg (35-45); ABG PO2 99 mmHg (83-108); ABG TCO2 26 mmol/L (19-24)
--- NOTE | 2017-05-15 13:36 | CONS ---
CONSULTATION This is a gentleman I was called in the intensive care unit for urgent placement of the dialysis catheter. The patient has creatinine that has increased to 5.8, and he has been intubated. This patient has a chronic kidney disease, Stage IIIB, by nephrosclerosis, diabetic kidney disease. His creatinine has increased and I was consulted for placement of urgent dialysis catheter. EXAMINATION: Patient was seen in the Intensive care unit. Patient is on ventilator. The patient chest has crackles bilateral. Abdomen is protuberant. Femoral pulses were diminished. IMPRESSION: 1. Acute kidney injury. 2. Chronic kidney disease. 3. Metabolic acidosis. 4. Hyperkalemia. PLAN: Placement of dialysis catheter. Risks and complications discussed. Thank you very much. ULICES / SHAYLAN: [id number] /
--- NOTE | 2017-05-15 13:47 | PCN ---
PROCEDURE NOTE PREOP DIAGNOSIS: Acute chronic renal failure with hyperkalemia. PROCEDURE: Placement ultrasound guided dialysis catheter place right femoral approach. DESCRIPTION OF PROCEDURE: The patient was seen in the Intensive Care Unit. Right groin was prepped and drapes applied in the usual sterile manner. 1% lidocaine was infiltrated and ultrasound- guided micropuncture right femoral vein. Micropuncture guidewire was passed and 4 Thai dilator advanced on the top of the guidewire. Then, we passed a regular guidewire without resistance and the dilator was advanced over the top of guidewire. After that we placed a dialysis catheter right femoral approach and flushed with heparin saline and hep-locked and incision was secured and dressing applied. Patient tolerated the procedure well. MMODL / IJN: [id number] /
[2017-05-15] MEDS: ISOSORBIDE MONONITRATE ER 30 MG TAB.ER.24H PO SCH (14:24)
[2017-05-15] MEDS: hydrALAZINE HCL 25 MG TAB PO SCH ×2 (14:24→20:49)
--- NOTE | 2017-05-15 14:49 | P.PN ---
Subjective patient is a 67-year-old male with a known history of COPD, coronary artery bypass surgery 2 years back and [facility] for underlying coronary artery disease, ischemic artery myopathy and has had an AICD in place presented to the hospital because of increased cough congestion and worsening shortness of breath.. The patient is an ex-smoker. He also has CKD, hypertension , hyperlipidemia and diabetes mellitus-2 05/13/2017 Patient was found to be having worsening short of breath and lung examination showed diminished breath sounds this morning. Patient was seen by pulmonary and ABC showed a pH of 7.2 with a pCO2 of 50 and a pO2 of 78. Patient is drowsy at this time. Patient was transferred to MICU Patient is currently on BiPAP machine and seems to be lethargic and non- arousable. Complete review of systems could not be obtained from the patient. current medications reviewed 05/14/2017 Patient was intubated due to worsening short of breath today morning. Patient was also started on hemodialysis due to worsening renal function. Currently sedated and intubated. A CAT scan of the chest was also done yesterday that showed bilateral pneumonia with airspace disease in the left upper lobe and some minimal airspace disease present in the right lung base. 05/15/2017 Patient is intubated sedated, patient is presently dependent which will be discontinued and patient will be resumed on his oral antidepressant medications. Patient will be continued on hemodialysis. Objective - Vital Signs Vital signs: Vital Signs Temp 98.1 F 05/15/17 12:00 Pulse 59 L 05/15/17 13:00 Resp 20 05/15/17 13:00 BP 189/72 05/14/17 17:10 Pulse Ox 97 05/15/17 13:00 Intake & Output 05/14/17 05/15/17 05/15/17 18:59 06:59 18:59 Intake Total 1118.599 4990.841 1049.800 Output Total 830 354 195 Balance 154.706 2108.841 854.800 Weight 93.2 kg 91.7 kg Intake: IV 910 1110 490 .9 110 210 140 Dextrose 5% in Water 1, 750 900 000 ml @ 75 mls/hr IV . [id number] [facility] with Sodium Bicarb (1 Meq/ml) 150 ml Rx#:[id number] Sodium Chloride 0.9% 1, 300 000 ml @ 50 mls/hr IV . Q20H [facility] Rx#:[id number] cefTAZidime 0.5 gm In 50 Sodium Chloride 0.9% 50 ml @ 100 mls/hr IVPB DAILY [facility] Rx#:[id number] cefTAZidime 1 gm In 50 Sodium Chloride 0.9% 50 ml @ 100 mls/hr IVPB DAILY [facility] Rx#:[id number] Intake, IV Titration 341.049 467.841 229.800 Amount Clevidipine Butyrate 25 17.299 79.301 29.800 mg In Empty Bag 1 bag @ 1 MG/HR 2 mls/hr IV .Q24H [facility] Rx#:[id number] Norepinephrin 4 mg-0.9% 223.75 Ns Pmx 4 mg In 250 ml @ Titrate IV .Q0M [facility] Rx#: [id number] Propofol 1,000 mg In 100 100 388.54 200 ml @ Titrate IV .Q0M [facility] Rx#:[id number] Oral 0 Tube Feeding 20 250 330 Other 60 Output: Gastric Drainage 150 Urine 680 354 195 Other: Voiding Method Indwelling Catheter Indwelling Catheter Indwelling Catheter # Voids 3 # Bowel Movements 1 ABP, PAP, CO, CI - Last Documented Arterial Blood Pressure 132/46 - Exam PHYSICAL EXAMINATION: Patient is lying in the bed comfortably, no acute distress, patient is on mechanical ventilation HEENT: Normocephalic. Neck is supple. Pupils reactive. Nostrils clear. Oral cavity is moist. Ears reveal no drainage. endotracheal tube in place an NG tube in place with tube feedings Neck reveals no JVD, carotid bruits, or thyromegaly. CHEST EXAMINATION: Trachea is central. Symmetrical expansion. Bilateral air entry is present. Rhonchi positive bilaterally CARDIAC: Normal S1, S2 with no gallops. No murmurs ABDOMEN: Soft. Bowel sounds normal. No organomegaly. No abdominal bruits. Extremities: 1+ edema. No clubbing or cyanosis Neurologically. Patient isarousable to painful stimuli RasS his score of -2 Skin: No rash or skin lesions. Psychiatric: Could not bases at this time Musculoskeletal: No joint swelling or deformity. Normal range of motion. - Labs CBC & Chem 7: 05/15/17 04:20 05/15/17 04:20 Labs: Abnormal Lab Results - Last 24 Hours (Table) 05/14/17 05/14/17 05/14/17 Range/Units 11:10 17:28 19:50 RBC (4.30-5.90) m/uL Hgb (13.0-17.5) gm/dL Hct (39.0-53.0) % RDW (11.5-15.5) % Plt Count (150-450) k/uL Lymphocytes # (1.0-4.8) k/uL ABG pH (7.35-7.45) ABG pCO2 (35-45) mmHg ABG Total CO2 (19-24) mmol/L ABG O2 Saturation (94-97) % Sodium (137-145) mmol/L BUN (9-20) mg/dL Creatinine (0.66-1.25) mg/dL Glucose (74-99) mg/dL POC Glucose (mg/dL) 177 H 145 H (75-99) mg/dL Calcium (8.4-10.2) mg/dL Phosphorus (2.5-4.5) mg/dL Viral Test See Below H 05/14/17 05/15/17 05/15/17 Range/Units 23:46 04:06 04:20 RBC 2.78 L (4.30-5.90) m/uL Hgb 7.8 L (13.0-17.5) gm/dL Hct 23.6 L (39.0-53.0) % RDW 16.0 H (11.5-15.5) % Plt Count 138 L (150-450) k/uL Lymphocytes # 0.1 L (1.0-4.8) k/uL ABG pH (7.35-7.45) ABG pCO2 (35-45) mmHg ABG Total CO2 (19-24) mmol/L ABG O2 Saturation (94-97) % Sodium (137-145) mmol/L BUN (9-20) mg/dL Creatinine (0.66-1.25) mg/dL Glucose (74-99) mg/dL POC Glucose (mg/dL) 210 H 252 H (75-99) mg/dL Calcium (8.4-10.2) mg/dL Phosphorus (2.5-4.5) mg/dL Viral Test 05/15/17 05/15/17 05/15/17 Range/Units 04:20 04:21 08:04 RBC (4.30-5.90) m/uL Hgb (13.0-17.5) gm/dL Hct (39.0-53.0) % RDW (11.5-15.5) % Plt Count (150-450) k/uL Lymphocytes # (1.0-4.8) k/uL ABG pH 7.50 H (7.35-7.45) ABG pCO2 31 L (35-45) mmHg ABG Total CO2 (19-24) mmol/L ABG O2 Saturation 98.0 H (94-97) % Sodium 134 L (137-145) mmol/L BUN 79 H (9-20) mg/dL Creatinine 4.12 H (0.66-1.25) mg/dL Glucose 240 H (74-99) mg/dL POC Glucose (mg/dL) 198 H (75-99) mg/dL Calcium 7.5 L (8.4-10.2) mg/dL Phosphorus 5.8 H (2.5-4.5) mg/dL Viral Test 05/15/17 05/15/17 Range/Units 11:54 12:24 RBC (4.30-5.90) m/uL Hgb (13.0-17.5) gm/dL Hct (39.0-53.0) % RDW (11.5-15.5) % Plt Count (150-450) k/uL Lymphocytes # (1.0-4.8) k/uL ABG pH 7.50 H (7.35-7.45) ABG pCO2 33 L (35-45) mmHg ABG Total CO2 26 H (19-24) mmol/L ABG O2 Saturation 98.0 H (94-97) % Sodium (137-145) mmol/L BUN (9-20) mg/dL Creatinine (0.66-1.25) mg/dL Glucose (74-99) mg/dL POC Glucose (mg/dL) 207 H (75-99) mg/dL Calcium (8.4-10.2) mg/dL Phosphorus (2.5-4.5) mg/dL Viral Test Microbiology - Last 24 Hours (Table) 05/14/17 11:10 Gram Stain - Preliminary Bronchial Washings - Random Bronchial Washings Culture - Preliminary 05/14/17 11:10 Acid Fast Bacilli Smear - Final Bronchial Washings - Random Acid Fast Bacilli Culture - Preliminary 05/11/17 00:50 Blood Culture - Preliminary Blood No Growth after 96 hours 05/13/17 12:33 Urine Culture - Final Urine,Catheterized 05/14/17 11:10 Fungal Culture - Preliminary Bronchial Washings - Random Assessment and Plan Plan: #1 acute hypoxic and hypercapnic respiratory failure. currently intubated, sedated and calm #2 acute COPD exacerbation #3 left lung pneumonia suspected gram-negative on admission present #4 diabetes type 2 insulin-dependent #5 acute on chronic CHF with diastolic dysfunction ejection fraction 55-50% #6 severe pulmonary hypertension #7 hypertension #8 Hyperlipidemia #9 History of previous smoking #10 acute on chronic kidney disease stage IV #11 CKD likely due to diabetic nephropathy and hypertensive nephrosclerosis #12 peripheral vascular disease #13 coronary artery disease status post bypass graft #14history of cardiac block status post pacemaker insertion/AICD insertion Plan: Patient is on mechanical ventilator. Continue the antibiotics and breathing treatments and IV steroids. Continue to follow renal function. Patient will be getting hemodialysis today. Pulmonary and nephrology is following this patient. Prognosis is guarded with multiple medical problems and comorbid conditions. patient is on vancomycin and Ceptaz remission with continued
[2017-05-15 16:54] LABS: Glucose,Whole Blood 276 mg/dL (75-99)
[2017-05-15] MEDS: INSULIN REGULAR 100 UNIT in SODIUM CHLORIDE 0.9% 100 ML IV SCH (17:52)
[2017-05-15 18:36] LABS: Glucose,Whole Blood 274 mg/dL (75-99)
[2017-05-15 19:40] LABS: Glucose,Whole Blood 232 mg/dL (75-99)
[2017-05-15 20:48] LABS: Glucose,Whole Blood 210 mg/dL (75-99)
[2017-05-15] MEDS: FOLIC ACID 1 MG TAB PO SCH (20:48)
[2017-05-15] MEDS: CARVEDILOL 12.5 MG TAB PO SCH (20:48)
[2017-05-15] MEDS: ATORVASTATIN 40 MG TAB PO SCH (20:48)
[2017-05-15 21:50] LABS: Glucose,Whole Blood 223 mg/dL (75-99)
[2017-05-15 22:42] LABS: Glucose,Whole Blood 197 mg/dL (75-99)
[2017-05-15 23:56] LABS: Glucose,Whole Blood 191 mg/dL (75-99)
[2017-05-16] MEDS: methylPREDNISolone SOD SUCCI 40 MG/ML 1 ML VIAL IV SCH ×3 (00:29→20:37)
[2017-05-16 01:10] LABS: Glucose,Whole Blood 176 mg/dL (75-99)
[2017-05-16 02:19] LABS: Glucose,Whole Blood 164 mg/dL (75-99)
[2017-05-16] MEDS: INSULIN REGULAR 100 UNIT in SODIUM CHLORIDE 0.9% 100 ML IV SCH ×2 (02:39→22:40)
[2017-05-16 03:24] LABS: Glucose,Whole Blood 138 mg/dL (75-99)
[2017-05-16 04:18] LABS: Glucose,Whole Blood 140 mg/dL (75-99)
[2017-05-16] MEDS: PROPOFOL 1,000 MG/100 ML VIAL IV SCH ×7 (04:44→23:06)
[2017-05-16 05:25] LABS: Glucose,Whole Blood 169 mg/dL (75-99)
[2017-05-16 05:40] LABS: Basophils % (A) 0 %; CH 26.2; CHCM 30.8; Eosinophils % (A) 0 %; HDW 2.68; HGB 7.3 gm/dL (13.0-17.5); Hypochromasia Slight; Luc % (Auto) 1; Lymphocytes # (A) 0.2 k/uL (1.0-4.8); Lymphocytes % (A) 3 %; MCH 25.9 pg (25.0-35.0); MCHC 30.3 g/dL (31.0-37.0); MCV 85.4 fL (80.0-100.0); Mean Platelet Volume 8.7; Monocytes # (A) 0.2 k/uL (0-1.0); Monocytes % (A) 3 %; Neutrophils # (A) 6.6 k/uL (1.3-7.7); Neutrophils % (A) 92 %; RBC 2.81 m/uL (4.30-5.90); RDW 15.8 % (11.5-15.5); WBC 7.2 k/uL (3.8-10.6); WBC (Perox) 7.37
[2017-05-16 05:41] LABS: ABG Base Excess 0.9 mmol/L; ABG HCO3 24 mmol/L (21-25); ABG PCO2 36 mmHg (35-45); ABG PH 7.45 (7.35-7.45); ABG PO2 146 mmHg (83-108); ABG TCO2 26 mmol/L (19-24)
[2017-05-16 05:45] LABS: ALT 43 U/L (21-72); AST 24 U/L (17-59); Alkaline Phosphatase 81 U/L (38-126); Anion Gap 10 mmol/L; Blood Urea Nitrogen 58 mg/dL (9-20); Calcium 7.4 mg/dL (8.4-10.2); Carbon Dioxide 24 mmol/L (22-30); Chloride 101 mmol/L (98-107); Glucose 161 mg/dL (74-99); Non-African American GFR(MDRD) 22 (>60 ml/min/1.73 sqM); Phosphorous 4.5 mg/dL (2.5-4.5); Potassium 4.2 mmol/L (3.5-5.1); Sodium 135 mmol/L (137-145); Total Bilirubin <0.1 mg/dL (0.2-1.3); Total Protein 4.6 g/dL (6.3-8.2)
[2017-05-16 06:14] LABS: Glucose,Whole Blood 183 mg/dL (75-99)
[2017-05-16] MEDS: CLEVIDIPINE BUTYRATE 25 MG in EMPTY BAG 1 BAG IV SCH ×2 (06:14→18:34)
[2017-05-16] MEDS: SODIUM CHLORIDE 0.9% 1,000 ML IV SCH (06:17)
--- NOTE | 2017-05-16 07:06 | XR ---
EXAMINATION TYPE: XR chest 1V portable DATE OF EXAM: 05/16/2017 HISTORY: Tube placement. REFERENCE: Previous study dated 05/15/2017. FINDINGS: There has been a midline sternotomy. There is a multilead pacing device in place on the lef t. The patient is ET tube and NG tube remain in place, unchanged in appearance. The heart remains enlarged. There is bibasilar airspace disease. I suspect a small left effusion. The overall appearance has deteriorated somewhat. IMPRESSION: WORSENING BILATERAL AIRSPACE DISEASE.
[2017-05-16 07:26] LABS: Glucose,Whole Blood 180 mg/dL (75-99)
[2017-05-16] MEDS: IPRATROPIUM-ALBUTEROL 3 ML NEB INHALATION SCH ×4 (07:38→20:22)
[2017-05-16 08:22] LABS: Glucose,Whole Blood 170 mg/dL (75-99)
[2017-05-16] MEDS: CHLORHEXIDINE GLUCONATE 15 ML CUP MUCOUS MEM SCH ×2 (08:32→20:36)
[2017-05-16] MEDS: VITAMIN E (DL,TOCOPHERYL ACET) 400 UNIT CAP PO SCH (08:32)
[2017-05-16] MEDS: ISOSORBIDE MONONITRATE ER 30 MG TAB.ER.24H PO SCH (08:32)
[2017-05-16] MEDS: CARVEDILOL 12.5 MG TAB PO SCH ×2 (08:32→20:36)
[2017-05-16] MEDS: FERROUS SULFATE 325 MG TAB PO SCH ×2 (08:32→17:47)
[2017-05-16] MEDS: ASPIRIN 81 MG PO SCH ×2 (08:32→20:36)
[2017-05-16] MEDS: hydrALAZINE HCL 25 MG TAB PO SCH ×2 (08:32→20:36)
[2017-05-16 09:11] LABS: Glucose,Whole Blood 158 mg/dL (75-99)
--- NOTE | 2017-05-16 09:45 | P.PN ---
Subjective Patient is seen in follow-up for acute kidney injury on chronic kidney disease. Patient has chronic kidney disease stage IIIB secondary to nephrosclerosis and diabetic kidney disease with baseline creatinine near 2. His creatinine peaked at 5.8 this admission. Diuretics have been discontinued. Patient appeared quite lethargic on May 13 and ABG was suggestive of mixed metabolic and respiratory acidosis. He is currently in intensive care unit requiring ventilator support. He was oliguric but urine output now is about 25 mL an hour. He is off all vasopressors at this time. Tube feeds ave been started. Vital signs are stable. Requiring vasopressors. General: The patient appeared well nourished and normally developed. HEENT: Head exam is unremarkable. Neck is without jugular venous distension. LUNGS: Scattered rhonchi. Breath sounds decreased. HEART: Rate and Rhythm are regular. First and second heart sounds normal. No murmurs, rubs or gallops. ABDOMEN: Abdominal exam reveals normal bowel sounds. Non-tender and non- distended. EXTREMITITES: No clubbing, cyanosis, or edema. Oozing noted from shannon cathether site. Objective - Vital Signs Vital signs: Vital Signs Temp 98.4 F 05/16/17 08:00 Pulse 60 05/16/17 09:00 Resp 25 H 05/16/17 09:00 BP 189/72 05/14/17 17:10 Pulse Ox 98 05/16/17 09:00 Intake & Output 05/15/17 05/16/17 05/16/17 18:59 06:59 18:59 Intake Total 3369.212 7641.079 293.282 Output Total 335 327 75 Balance 3939.820 3888.079 218.282 Weight 88.5 kg Intake: IV 800 910 120 .9 200 260 20 Sodium Chloride 0.9% 1, 550 650 50 000 ml @ 50 mls/hr IV . Q20H [facility] Rx#:[id number] cefTAZidime 0.5 gm In 50 50 Sodium Chloride 0.9% 50 ml @ 100 mls/hr IVPB DAILY [facility] Rx#:[id number] Intake, IV Titration 348.969 296.079 113.282 Amount Clevidipine Butyrate 25 38.600 21.467 mg In Empty Bag 1 bag @ 1 MG/HR 2 mls/hr IV .Q24H [facility] Rx#:[id number] Insulin Regular 100 unit 10.369 83.276 21.014 In Sodium Chloride 0.9% 100 ml @ Per Protocol IV .Q0M [facility] Rx#:[id number] Propofol 1,000 mg In 100 300 191.336 92.268 ml @ Titrate IV .Q0M [facility] Rx#:[id number] Oral 0 Tube Feeding 490 780 60 Other 60 Output: Urine 335 327 75 Other: Voiding Method Indwelling Catheter Indwelling Catheter ABP, PAP, CO, CI - Last Documented Arterial Blood Pressure 148/47 - Labs CBC & Chem 7: 05/16/17 05:20 05/16/17 04:30 Labs: Abnormal Lab Results - Last 24 Hours (Table) 05/14/17 05/15/17 05/15/17 Range/Units 11:10 11:54 12:24 RBC (4.30-5.90) m/uL Hgb (13.0-17.5) gm/dL Hct (39.0-53.0) % MCHC (31.0-37.0) g/dL RDW (11.5-15.5) % Lymphocytes # (1.0-4.8) k/uL ABG pH 7.50 H (7.35-7.45) ABG pCO2 33 L (35-45) mmHg ABG pO2 (83-108) mmHg ABG Total CO2 26 H (19-24) mmol/L ABG O2 Saturation 98.0 H (94-97) % Sodium (137-145) mmol/L BUN (9-20) mg/dL Creatinine (0.66-1.25) mg/dL Glucose (74-99) mg/dL POC Glucose (mg/dL) 207 H (75-99) mg/dL Calcium (8.4-10.2) mg/dL Total Bilirubin (0.2-1.3) mg/dL Total Protein (6.3-8.2) g/dL Albumin (3.5-5.0) g/dL Viral Test See Below H 05/15/17 05/15/17 05/15/17 Range/Units 16:52 18:34 19:38 RBC (4.30-5.90) m/uL Hgb (13.0-17.5) gm/dL Hct (39.0-53.0) % MCHC (31.0-37.0) g/dL RDW (11.5-15.5) % Lymphocytes # (1.0-4.8) k/uL ABG pH (7.35-7.45) ABG pCO2 (35-45) mmHg ABG pO2 (83-108) mmHg ABG Total CO2 (19-24) mmol/L ABG O2 Saturation (94-97) % Sodium (137-145) mmol/L BUN (9-20) mg/dL Creatinine (0.66-1.25) mg/dL Glucose (74-99) mg/dL POC Glucose (mg/dL) 276 H 274 H 232 H (75-99) mg/dL Calcium (8.4-10.2) mg/dL Total Bilirubin (0.2-1.3) mg/dL Total Protein (6.3-8.2) g/dL Albumin (3.5-5.0) g/dL Viral Test 05/15/17 05/15/17 05/15/17 Range/Units 20:46 21:49 22:41 RBC (4.30-5.90) m/uL Hgb (13.0-17.5) gm/dL Hct (39.0-53.0) % MCHC (31.0-37.0) g/dL RDW (11.5-15.5) % Lymphocytes # (1.0-4.8) k/uL ABG pH (7.35-7.45) ABG pCO2 (35-45) mmHg ABG pO2 (83-108) mmHg ABG Total CO2 (19-24) mmol/L ABG O2 Saturation (94-97) % Sodium (137-145) mmol/L BUN (9-20) mg/dL Creatinine (0.66-1.25) mg/dL Glucose (74-99) mg/dL POC Glucose (mg/dL) 210 H 223 H 197 H (75-99) mg/dL Calcium (8.4-10.2) mg/dL Total Bilirubin (0.2-1.3) mg/dL Total Protein (6.3-8.2) g/dL Albumin (3.5-5.0) g/dL Viral Test 05/15/17 05/16/17 05/16/17 Range/Units 23:55 01:07 02:13 RBC (4.30-5.90) m/uL Hgb (13.0-17.5) gm/dL Hct (39.0-53.0) % MCHC (31.0-37.0) g/dL RDW (11.5-15.5) % Lymphocytes # (1.0-4.8) k/uL ABG pH (7.35-7.45) ABG pCO2 (35-45) mmHg ABG pO2 (83-108) mmHg ABG Total CO2 (19-24) mmol/L ABG O2 Saturation (94-97) % Sodium (137-145) mmol/L BUN (9-20) mg/dL Creatinine (0.66-1.25) mg/dL Glucose (74-99) mg/dL POC Glucose (mg/dL) 191 H 176 H 164 H (75-99) mg/dL Calcium (8.4-10.2) mg/dL Total Bilirubin (0.2-1.3) mg/dL Total Protein (6.3-8.2) g/dL Albumin (3.5-5.0) g/dL Viral Test 05/16/17 05/16/17 05/16/17 Range/Units 03:22 04:17 04:26 RBC (4.30-5.90) m/uL Hgb (13.0-17.5) gm/dL Hct (39.0-53.0) % MCHC (31.0-37.0) g/dL RDW (11.5-15.5) % Lymphocytes # (1.0-4.8) k/uL ABG pH (7.35-7.45) ABG pCO2 (35-45) mmHg ABG pO2 146 H (83-108) mmHg ABG Total CO2 26 H (19-24) mmol/L ABG O2 Saturation 99.0 H (94-97) % Sodium (137-145) mmol/L BUN (9-20) mg/dL Creatinine (0.66-1.25) mg/dL Glucose (74-99) mg/dL POC Glucose (mg/dL) 138 H 140 H (75-99) mg/dL Calcium (8.4-10.2) mg/dL Total Bilirubin (0.2-1.3) mg/dL Total Protein (6.3-8.2) g/dL Albumin (3.5-5.0) g/dL Viral Test 05/16/17 05/16/17 05/16/17 Range/Units 04:30 05:20 05:21 RBC 2.81 L (4.30-5.90) m/uL Hgb 7.3 L (13.0-17.5) gm/dL Hct 24.0 L (39.0-53.0) % MCHC 30.3 L (31.0-37.0) g/dL RDW 15.8 H (11.5-15.5) % Lymphocytes # 0.2 L (1.0-4.8) k/uL ABG pH (7.35-7.45) ABG pCO2 (35-45) mmHg ABG pO2 (83-108) mmHg ABG Total CO2 (19-24) mmol/L ABG O2 Saturation (94-97) % Sodium 135 L (137-145) mmol/L BUN 58 H (9-20) mg/dL Creatinine 2.85 H (0.66-1.25) mg/dL Glucose 161 H (74-99) mg/dL POC Glucose (mg/dL) 169 H (75-99) mg/dL Calcium 7.4 L (8.4-10.2) mg/dL Total Bilirubin <0.1 L (0.2-1.3) mg/dL Total Protein 4.6 L (6.3-8.2) g/dL Albumin 2.1 L (3.5-5.0) g/dL Viral Test 05/16/17 05/16/17 05/16/17 Range/Units 06:07 07:24 08:20 RBC (4.30-5.90) m/uL Hgb (13.0-17.5) gm/dL Hct (39.0-53.0) % MCHC (31.0-37.0) g/dL RDW (11.5-15.5) % Lymphocytes # (1.0-4.8) k/uL ABG pH (7.35-7.45) ABG pCO2 (35-45) mmHg ABG pO2 (83-108) mmHg ABG Total CO2 (19-24) mmol/L ABG O2 Saturation (94-97) % Sodium (137-145) mmol/L BUN (9-20) mg/dL Creatinine (0.66-1.25) mg/dL Glucose (74-99) mg/dL POC Glucose (mg/dL) 183 H 180 H 170 H (75-99) mg/dL Calcium (8.4-10.2) mg/dL Total Bilirubin (0.2-1.3) mg/dL Total Protein (6.3-8.2) g/dL Albumin (3.5-5.0) g/dL Viral Test 05/16/17 Range/Units 09:08 RBC (4.30-5.90) m/uL Hgb (13.0-17.5) gm/dL Hct (39.0-53.0) % MCHC (31.0-37.0) g/dL RDW (11.5-15.5) % Lymphocytes # (1.0-4.8) k/uL ABG pH (7.35-7.45) ABG pCO2 (35-45) mmHg ABG pO2 (83-108) mmHg ABG Total CO2 (19-24) mmol/L ABG O2 Saturation (94-97) % Sodium (137-145) mmol/L BUN (9-20) mg/dL Creatinine (0.66-1.25) mg/dL Glucose (74-99) mg/dL POC Glucose (mg/dL) 158 H (75-99) mg/dL Calcium (8.4-10.2) mg/dL Total Bilirubin (0.2-1.3) mg/dL Total Protein (6.3-8.2) g/dL Albumin (3.5-5.0) g/dL Viral Test Microbiology - Last 24 Hours (Table) 05/14/17 11:10 Gram Stain - Final Bronchial Washings - Random Bronchial Washings Culture - Final 05/11/17 00:50 Blood Culture - Preliminary Blood No Growth after 120 hours Assessment and Plan Plan: Assessment: #1. Acute kidney injury secondary to ATN secondary to pneumonia and further worsened with the use of diuretics and MIC inhibitor. Patient also hypotensive requiring vasopressors. Postvoid residual was 170. Creatinine peaked at 5.8 this admission. He was started on hemodialysis and has undergone 2 treatments so far - last HD on 05/15/17. #2. Chronic kidney disease stage IIIB secondary to nephrosclerosis and diabetic kidney disease with baseline creatinine near 2. #3. Hyperkalemia secondary to acute kidney injury and metabolic acidosis. Improved postdialysis. #4. Metabolic acidosis secondary to acute kidney injury. Respiratory acidosis present as well. Improved. #5. Pneumonia, maintain on antibiotics. #6. Anemia with severe iron deficiency, status post 3 doses of IV iron. Monitor hemoglobin. May require blood transition. #7. Hyperphosphatemia secondary to acute kidney injury. Improved postdialysis. Plan: Hep-Lock IV fluids. Lasix 60 mg IV once today. Maintain tube feeds. Maintain [place] catheter for accurate I's and os. I will hold dialysis today and monitor renal function for recovery.
--- NOTE | 2017-05-16 09:45 | P.PN ---
Subjective Progress Note Date: 05/16/17 A 67-year-old male patient who is being seen in consultation upon the request of Dr. Jerez for worsening shortness of breath. At the time of my evaluation , the patient was noted to be quite lethargic and somnolent. He was arousable. He had increased cough and congestion. He had diminished breath sounds throughout his lung pearson bilaterally. He was placed on oxygen at 3 L/m nasal cannula. A blood gas was ordered and it showed a pH of 7.2 with a pCO2 of 50 and a pO2 of 78 at 3 L/m nasal cannula. The patient was also found to be in acute on top of chronic renal failure with an underlying metabolic acidosis and acute hyperkalemia with a potassium level of 5.9. For that reason I made recommendations for this patient to be transferred to the intensive care unit. I was also told that the patient was having hypoglycemic events and he was placed on D5 half-normal saline at rate of 70 and an hour. This patient has history of COPD. The patient is an ex-smoker. His undergone coronary artery bypass surgery 2 years back and [facility] for underlying coronary artery disease. He is also known to have ischemic artery myopathy and has had an AICD in place. He suffers from chronic renal failure. He has hypertension and hyperlipidemia and diabetes mellitus. He presented to the hospital because of increased cough congestion and worsening shortness of breath. No major swelling in lower extremities. No orthopnea. No peripheral edema. His white cell count was nonelevated. His hemoglobin was low and the patient has chronic anemia with a hemoglobin of 8.3-8.4 and he was given IV iron. He was being diuresis with IV Lasix and diuretics got placed on hold as the patient developed an acute on top of chronic renal failure. The patient is also covered with broad-spectrum antibiotics and is currently on IV Fortaz. On 05/14/2017 I'm seeing this patient for a follow-up. The patient is quite lethargic and somnolent and he still continues to have significant limitations level of consciousness. Overnight he was also agitated and confused and he had required a dose of Ativan 1 mg which controlled his agitation. Overnight he was also kept on a BiPAP at a pressure of 12/5 cm of water and FiO2 of 40%. He continues to be oliguric. His renal function is progressively getting worse in his creatinine is up to 5.8. He was started on a bicarb drip yesterday and his serum bicarb is up to 17 and he has an anion gap of 17. The patient's chest x- ray from today showing multilobar pneumonia. A CAT scan of the chest was also done yesterday that showed bilateral pneumonia with airspace disease in the left upper lobe and some minimal airspace disease present in the right lung base. He has a weak cough. He is having difficulties in breathing and up his rest or secretions. His was unable to swallow today due to his marked diminishment in level of consciousness. And based on all this, I made decision to intubate the patient and place him on a mechanical ventilator. I also contacted nephrology and the patient is being considered for hemodialysis today. He is diabetic. His blood sugars have been within the hypoglycemic range and his most recent blood sugar is 163. He remains on D5 with 3 A of bicarb at the rate of 75 mL an hour. On 05/15/2017 the patient is being seen in follow-up in the intensive care unit. As mentioned, the patient was intubated and placed on a mechanical ventilator. This morning his well sedated and is calm and comfortable on Diprivan running at 50 mics. He is also on assist control mode of ventilation at the rate of 24, tidal volume of 500, FiO2 of 60% and a PEEP of 5. Chest x- ray from this morning shows adequate positioning of the orotracheal and orogastric tube. There is some atelectatic changes and left lung base. Overall the aeration is improved. The patient had a bronchoscopy yesterday and the bronchial lavage has been sent for microbial analysis and the results are still pending for now. Meanwhile he is on a broad-spectrum antibiotic coverage including a combination of cefepime, Levaquin and vancomycin. No fever. No hypotension. No chills. The patient is producing diminished urine output and he is still in acute kidney injury. A dialysis catheter was inserted yesterday and received his first session of dialysis yesterday. No volume was taken off and the patient had strict dialysis. The patient is improving in terms of his metabolic derangements. In fact on today's blood gases having a component of acute Minnie alkalosis with a pH of 7.5 and a pCO2 of 31 and pO2 of 98. As for his serum bicarb, there is up to 22 and the creatinine is down to 4.12. The patient is on a sliding scale insulin coverage for blood sugar control. He was having issues with elevated blood pressure post intubation. Currently is on a clevidipine running at 1 mg an hour and his blood pressure is under good control. On 05/16/2017 the patient is being seen in follow-up in the intensive care unit. The patient remains intubated on a mechanical ventilator. The morning vent setting showed an assist-control mode at the rate of 20, tidal volume of 450, FiO2 of 60% and PEEP of 5. Morning blood gases showed a pH of 7.45 with a pCO2 of 36 and pO2 46. Based on this the FiO2 was gradually wean down to 50% and hopefully down to 40%. Chest x-ray shows worsening of the right the pulmonary infiltrates especially on the left. ET tube is in a good location. Bronchoscopy was done and the bronchioloalveolar lavage has not shown any microbial growth. Meanwhile the patient remains on a broad-spectrum antibiotics and the patient is currently on a combination of cefepime and Levaquin and vancomycin. Hemodynamically he is doing well. He is on no pressors. In fact he was requiring clevidipine drip for blood pressure control. His blood pressure is controlled on 2 mg of clevidipine drip. He underwent dialysis yesterday without ultrafiltration. His creatinine is down to 2.85 and the patient is producing urine and order of 50-75 mL an hour. His urine output is improved. I'm not sure if he is going to require dialysis tomorrow. Discussed the case with the nephrology. Would like to give him a dose of Lasix to augment his urine output and he will be receiving 60 mg IV push. The patient is still sedated on Diprivan. Diprivan is running at 50 mics. He can still wake himself up through the sedation. He is moving all 4 extremities. His sedation has been titrated on Diprivan at times at is being brought up to 60 mics. The patient's cardiac ventricular paced. He is tolerating his tube feeds. He is on insulin drip running at 5 units an hour. He is still on a bronchodilators and systemic steroids for his COPD exacerbation. No other significant events overnight. Objective - Vital Signs Vital signs: Vital Signs Temp 98.4 F 05/16/17 08:00 Pulse 60 05/16/17 09:00 Resp 25 H 05/16/17 09:00 BP 189/72 05/14/17 17:10 Pulse Ox 98 05/16/17 09:00 Intake & Output 05/15/17 05/16/17 05/16/17 18:59 06:59 18:59 Intake Total 0635.498 6975.079 293.282 Output Total 335 327 75 Balance 7087.656 1674.079 218.282 Weight 88.5 kg Intake: IV 800 910 120 .9 200 260 20 Sodium Chloride 0.9% 1, 550 650 50 000 ml @ 50 mls/hr IV . Q20H [facility] Rx#:[id number] cefTAZidime 0.5 gm In 50 50 Sodium Chloride 0.9% 50 ml @ 100 mls/hr IVPB DAILY [facility] Rx#:[id number] Intake, IV Titration 348.969 296.079 113.282 Amount Clevidipine Butyrate 25 38.600 21.467 mg In Empty Bag 1 bag @ 1 MG/HR 2 mls/hr IV .Q24H [facility]IN Rx#:[id number] Insulin Regular 100 unit 10.369 83.276 21.014 In Sodium Chloride 0.9% 100 ml @ Per Protocol IV .Q0M [facility] Rx#:[id number] Propofol 1,000 mg In 100 300 191.336 92.268 ml @ Titrate IV .Q0M [facility] Rx#:[id number] Oral 0 Tube Feeding 490 780 60 Other 60 Output: Urine 335 327 75 Other: Voiding Method Indwelling Catheter Indwelling Catheter ABP, PAP, CO, CI - Last Documented Arterial Blood Pressure 148/47 - Exam Patient is well sedated, intubated on a mechanical ventilator. Orogastric and orotracheal tube are both in place. He is calm and comfortable. My normal had neck is short and thick and supple and there is no significant neck veins. No JVDs. No goiter.Head exam was generally normal. There was no scleral icterus or corneal arcus. Mucous membranes were moist. Lungs sounds are diminished bilaterally otherwise clear in breast on that equal and symmetrical.Cardiac exam revealed the PMI to be normally situated and sized. The rhythm was regular and no extrasystoles were noted during several minutes of auscultation. The first and second heart sounds were normal and physiologic splitting of the second heart sound was noted. There were no murmurs, rubs, clicks, or gallops.Abdominal exam revealed normal bowel sounds. The abdomen was soft, non- tender, and without masses, organomegaly, or appreciable enlargement of the abdominal aorta. Patient is obese and organs cannot be accurately palpated on today's evaluation.Examination of the extremities revealed easily palpable radial, femoral and pedal pulses. There was no cyanosis, clubbing or edema. Neurologically the patient is sedated yet he is still moving all 4 extremities upon lowering sedation.Examination of the skin revealed no evidence of significant rashes, suspicious appearing nevi or other concerning lesions. - Labs CBC & Chem 7: 05/16/17 05:20 05/16/17 04:30 Labs: Abnormal Lab Results - Last 24 Hours (Table) 05/14/17 05/15/17 05/15/17 Range/Units 11:10 11:54 12:24 RBC (4.30-5.90) m/uL Hgb (13.0-17.5) gm/dL Hct (39.0-53.0) % MCHC (31.0-37.0) g/dL RDW (11.5-15.5) % Lymphocytes # (1.0-4.8) k/uL ABG pH 7.50 H (7.35-7.45) ABG pCO2 33 L (35-45) mmHg ABG pO2 (83-108) mmHg ABG Total CO2 26 H (19-24) mmol/L ABG O2 Saturation 98.0 H (94-97) % Sodium (137-145) mmol/L BUN (9-20) mg/dL Creatinine (0.66-1.25) mg/dL Glucose (74-99) mg/dL POC Glucose (mg/dL) 207 H (75-99) mg/dL Calcium (8.4-10.2) mg/dL Total Bilirubin (0.2-1.3) mg/dL Total Protein (6.3-8.2) g/dL Albumin (3.5-5.0) g/dL Viral Test See Below H 05/15/17 05/15/17 05/15/17 Range/Units 16:52 18:34 19:38 RBC (4.30-5.90) m/uL Hgb (13.0-17.5) gm/dL Hct (39.0-53.0) % MCHC (31.0-37.0) g/dL RDW (11.5-15.5) % Lymphocytes # (1.0-4.8) k/uL ABG pH (7.35-7.45) ABG pCO2 (35-45) mmHg ABG pO2 (83-108) mmHg ABG Total CO2 (19-24) mmol/L ABG O2 Saturation (94-97) % Sodium (137-145) mmol/L BUN (9-20) mg/dL Creatinine (0.66-1.25) mg/dL Glucose (74-99) mg/dL POC Glucose (mg/dL) 276 H 274 H 232 H (75-99) mg/dL Calcium (8.4-10.2) mg/dL Total Bilirubin (0.2-1.3) mg/dL Total Protein (6.3-8.2) g/dL Albumin (3.5-5.0) g/dL Viral Test 05/15/17 05/15/17 05/15/17 Range/Units 20:46 21:49 22:41 RBC (4.30-5.90) m/uL Hgb (13.0-17.5) gm/dL Hct (39.0-53.0) % MCHC (31.0-37.0) g/dL RDW (11.5-15.5) % Lymphocytes # (1.0-4.8) k/uL ABG pH (7.35-7.45) ABG pCO2 (35-45) mmHg ABG pO2 (83-108) mmHg ABG Total CO2 (19-24) mmol/L ABG O2 Saturation (94-97) % Sodium (137-145) mmol/L BUN (9-20) mg/dL Creatinine (0.66-1.25) mg/dL Glucose (74-99) mg/dL POC Glucose (mg/dL) 210 H 223 H 197 H (75-99) mg/dL Calcium (8.4-10.2) mg/dL Total Bilirubin (0.2-1.3) mg/dL Total Protein (6.3-8.2) g/dL Albumin (3.5-5.0) g/dL Viral Test 05/15/17 05/16/17 05/16/17 Range/Units 23:55 01:07 02:13 RBC (4.30-5.90) m/uL Hgb (13.0-17.5) gm/dL Hct (39.0-53.0) % MCHC (31.0-37.0) g/dL RDW (11.5-15.5) % Lymphocytes # (1.0-4.8) k/uL ABG pH (7.35-7.45) ABG pCO2 (35-45) mmHg ABG pO2 (83-108) mmHg ABG Total CO2 (19-24) mmol/L ABG O2 Saturation (94-97) % Sodium (137-145) mmol/L BUN (9-20) mg/dL Creatinine (0.66-1.25) mg/dL Glucose (74-99) mg/dL POC Glucose (mg/dL) 191 H 176 H 164 H (75-99) mg/dL Calcium (8.4-10.2) mg/dL Total Bilirubin (0.2-1.3) mg/dL Total Protein (6.3-8.2) g/dL Albumin (3.5-5.0) g/dL Viral Test 05/16/17 05/16/17 05/16/17 Range/Units 03:22 04:17 04:26 RBC (4.30-5.90) m/uL Hgb (13.0-17.5) gm/dL Hct (39.0-53.0) % MCHC (31.0-37.0) g/dL RDW (11.5-15.5) % Lymphocytes # (1.0-4.8) k/uL ABG pH (7.35-7.45) ABG pCO2 (35-45) mmHg ABG pO2 146 H (83-108) mmHg ABG Total CO2 26 H (19-24) mmol/L ABG O2 Saturation 99.0 H (94-97) % Sodium (137-145) mmol/L BUN (9-20) mg/dL Creatinine (0.66-1.25) mg/dL Glucose (74-99) mg/dL POC Glucose (mg/dL) 138 H 140 H (75-99) mg/dL Calcium (8.4-10.2) mg/dL Total Bilirubin (0.2-1.3) mg/dL Total Protein (6.3-8.2) g/dL Albumin (3.5-5.0) g/dL Viral Test 05/16/17 05/16/17 05/16/17 Range/Units 04:30 05:20 05:21 RBC 2.81 L (4.30-5.90) m/uL Hgb 7.3 L (13.0-17.5) gm/dL Hct 24.0 L (39.0-53.0) % MCHC 30.3 L (31.0-37.0) g/dL RDW 15.8 H (11.5-15.5) % Lymphocytes # 0.2 L (1.0-4.8) k/uL ABG pH (7.35-7.45) ABG pCO2 (35-45) mmHg ABG pO2 (83-108) mmHg ABG Total CO2 (19-24) mmol/L ABG O2 Saturation (94-97) % Sodium 135 L (137-145) mmol/L BUN 58 H (9-20) mg/dL Creatinine 2.85 H (0.66-1.25) mg/dL Glucose 161 H (74-99) mg/dL POC Glucose (mg/dL) 169 H (75-99) mg/dL Calcium 7.4 L (8.4-10.2) mg/dL Total Bilirubin <0.1 L (0.2-1.3) mg/dL Total Protein 4.6 L (6.3-8.2) g/dL Albumin 2.1 L (3.5-5.0) g/dL Viral Test 05/16/17 05/16/17 05/16/17 Range/Units 06:07 07:24 08:20 RBC (4.30-5.90) m/uL Hgb (13.0-17.5) gm/dL Hct (39.0-53.0) % MCHC (31.0-37.0) g/dL RDW (11.5-15.5) % Lymphocytes # (1.0-4.8) k/uL ABG pH (7.35-7.45) ABG pCO2 (35-45) mmHg ABG pO2 (83-108) mmHg ABG Total CO2 (19-24) mmol/L ABG O2 Saturation (94-97) % Sodium (137-145) mmol/L BUN (9-20) mg/dL Creatinine (0.66-1.25) mg/dL Glucose (74-99) mg/dL POC Glucose (mg/dL) 183 H 180 H 170 H (75-99) mg/dL Calcium (8.4-10.2) mg/dL Total Bilirubin (0.2-1.3) mg/dL Total Protein (6.3-8.2) g/dL Albumin (3.5-5.0) g/dL Viral Test 05/16/17 Range/Units 09:08 RBC (4.30-5.90) m/uL Hgb (13.0-17.5) gm/dL Hct (39.0-53.0) % MCHC (31.0-37.0) g/dL RDW (11.5-15.5) % Lymphocytes # (1.0-4.8) k/uL ABG pH (7.35-7.45) ABG pCO2 (35-45) mmHg ABG pO2 (83-108) mmHg ABG Total CO2 (19-24) mmol/L ABG O2 Saturation (94-97) % Sodium (137-145) mmol/L BUN (9-20) mg/dL Creatinine (0.66-1.25) mg/dL Glucose (74-99) mg/dL POC Glucose (mg/dL) 158 H (75-99) mg/dL Calcium (8.4-10.2) mg/dL Total Bilirubin (0.2-1.3) mg/dL Total Protein (6.3-8.2) g/dL Albumin (3.5-5.0) g/dL Viral Test Microbiology - Last 24 Hours (Table) 05/14/17 11:10 Gram Stain - Final Bronchial Washings - Random Bronchial Washings Culture - Final 05/11/17 00:50 Blood Culture - Preliminary Blood No Growth after 120 hours Assessment and Plan Plan: Assessment 1 bilateral pneumonia worse on the left with secondary acute hypoxic respiratory failure. Patient is currently intubated on a mechanical ventilator. The bronchoscopy and bronchial lavage showed no microbial growth and the patient remains on a combination of cefepime and Levaquin and vancomycin. Awaiting final cultures from the bronchioloalveolar lavage. Meanwhile, continue the antibiotics. Continue the vent support. Drop down the FiO2 down to 50% and then down to 40% if he tolerates. Sedation holiday. No plans for extubation her weaning today. He may be potentially ready for tomorrow. 2 acute COPD exacerbation secondary to left lung pneumonia, improving and the steroid dose can be tapered further. 3 acute hypertensive reaction currently on clevidipine drip for blood pressure control, currently on 2 mg of clevidipine drip for tighter blood pressure control 4 congestion heart failure, ischemic cardiomyopathy and the most recent echocardiogram shows a low normal ejection fraction with an EF around 50-55%, severely dilated LA, severe pulmonary hypertension with a PA pressure of 68 5 coronary artery disease with previous coronary artery bypass surgery 6 history of cardiac block status post pacemaker insertion/AICD insertion 7 acute on top of chronic renal failure, likely secondary to diuresis. The patient overall had 2 sessions of hemodialysis. His urine output is improved. His acid base balance is also improved. He had severe metabolic acidosis which got corrected. He is producing better urine output. Nephrology is on the case. He has some bleeding at the dialysis catheter insertion site in his right groin. This was monitored very closely. Is on a combination of aspirin and Plavix. His correlation profile is within normal limits. Unsure if he is given needs some more dialysis within the next 24 hours. He'll be monitored very closely. 8 chronic renal failure with stage III to 4 chronic kidney disease 9 diabetes mellitus, currently in size Blood sugar control 10 hypertension 11 hyperlipidemia. 12 hyperkalemia, improved 15 peripheral vascular disease 14 previous history of GI bleed 15 chronic iron deficiency 16 metabolic acidosis currently improved 17 enteral feeding for nutritional support via tube feeds 18 bleeding from catheter insertion site in the right femoral vein, currently inactive 19 anemia where the patient's hemoglobin is down to 7.3. Plan Continue same antibiotic coverage. Give the patient the dose of Lasix 60 mg IV push. Unsure of his [employer] dialysis tomorrow however this is possible specially if his creatinine goes up to higher levels. No major electrodes imbalance. His metabolic acidosis been corrected. Continue vent support. Drop down the FiO2 to maintain a saturation above 90%. The rest of the acid base balance is appropriate. Continue same antibiotic coverage. Continue tube feeds. Dropped on the Solu Medrol to 40 minutes every 12 hours. Give insulin drip for blood sugar control. Keep the Claviprex at 2 mg and titrate Critically care evaluation. The cardiac rhythm. Hemodynamically stable. Overall improved over the past 48 hours. The plan is to given a sedation holiday and consider weaning if he is a stable condition by morning. More than 30 minutes. Time with Patient: Greater than 30
[2017-05-16] MEDS ORDERED: FUROSEMIDE 10 MG/ML 10 ML VIAL IV STA (09:52)
[2017-05-16 10:16] LABS: Glucose,Whole Blood 138 mg/dL (75-99)
[2017-05-16] MEDS: ENOXAPARIN 30 MG/0.3 ML SYRINGE SQ SCH (10:22)
[2017-05-16] MEDS: CLOPIDOGREL 75 MG TAB PO SCH (10:22)
[2017-05-16] MEDS ORDERED: VANCOMYCIN 1,500 MG in SODIUM CHLORIDE 0.9% 250 ML IVPB ONE (11:00)
[2017-05-16 11:12] LABS: Glucose,Whole Blood 174 mg/dL (75-99)
[2017-05-16 12:32] LABS: Glucose,Whole Blood 220 mg/dL (75-99)
[2017-05-16 13:17] LABS: Glucose,Whole Blood 192 mg/dL (75-99)
[2017-05-16 14:31] LABS: Glucose,Whole Blood 147 mg/dL (75-99)
--- NOTE | 2017-05-16 14:54 | P.PN ---
Subjective patient is a 67-year-old male with a known history of COPD, coronary artery bypass surgery 2 years back and [facility] for underlying coronary artery disease, ischemic artery myopathy and has had an AICD in place presented to the hospital because of increased cough congestion and worsening shortness of breath.. The patient is an ex-smoker. He also has CKD, hypertension , hyperlipidemia and diabetes mellitus-2 05/13/2017 Patient was found to be having worsening short of breath and lung examination showed diminished breath sounds this morning. Patient was seen by pulmonary and ABC showed a pH of 7.2 with a pCO2 of 50 and a pO2 of 78. Patient is drowsy at this time. Patient was transferred to MICU Patient is currently on BiPAP machine and seems to be lethargic and non- arousable. Complete review of systems could not be obtained from the patient. current medications reviewed 05/14/2017 Patient was intubated due to worsening short of breath today morning. Patient was also started on hemodialysis due to worsening renal function. Currently sedated and intubated. A CAT scan of the chest was also done yesterday that showed bilateral pneumonia with airspace disease in the left upper lobe and some minimal airspace disease present in the right lung base. 05/15/2017 Patient is intubated sedated, patient is presently dependent which will be discontinued and patient will be resumed on his oral antidepressant medications. Patient will be continued on hemodialysis. 05/16/2017 Chest x-ray showing worsening bilateral pulmonary infiltrates patient continues to be on ventilatory support NG tube in place Objective - Vital Signs Vital signs: Vital Signs Temp 98.3 F 05/16/17 12:00 Pulse 66 05/16/17 13:00 Resp 15 05/16/17 13:00 BP 189/72 05/14/17 17:10 Pulse Ox 98 05/16/17 13:00 Intake & Output 05/15/17 05/16/17 05/16/17 18:59 06:59 18:59 Intake Total 4296.012 6887.079 1343.813 Output Total 335 327 345 Balance 0586.108 8126.079 998.813 Weight 88.5 kg Intake: IV 800 910 220 .9 200 260 120 Sodium Chloride 0.9% 1, 550 650 50 000 ml @ 50 mls/hr IV . Q20H [facility] Rx#:[id number] cefTAZidime 0.5 gm In 50 50 Sodium Chloride 0.9% 50 ml @ 100 mls/hr IVPB DAILY [facility] Rx#:[id number] Intake, IV Titration 348.969 296.079 643.813 Amount Clevidipine Butyrate 25 38.600 21.467 16.333 mg In Empty Bag 1 bag @ 1 MG/HR 2 mls/hr IV .Q24H [facility] Rx#:[id number] Insulin Regular 100 unit 10.369 83.276 49.934 In Sodium Chloride 0.9% 100 ml @ Per Protocol IV .Q0M [facility] Rx#:[id number] Propofol 1,000 mg In 100 300 191.336 277.546 ml @ Titrate IV .Q0M [facility] Rx#:[id number] Sodium Chloride 0.9% 1, 50 000 ml @ 50 mls/hr IV . Q20H [facility] Rx#:[id number] Vancomycin 1,500 mg In 250 Sodium Chloride 0.9% 250 ml @ 125 mls/hr IVPB ONCE ONE Rx#:[id number] Oral 0 Tube Feeding 490 780 480 Other 60 Output: Urine 335 327 345 Other: Voiding Method Indwelling Catheter Indwelling Catheter Indwelling Catheter ABP, PAP, CO, CI - Last Documented Arterial Blood Pressure 145/52 - Exam PHYSICAL EXAMINATION: Patient is lying in the bed comfortably, no acute distress, patient is on mechanical ventilation HEENT: Normocephalic. Neck is supple. Pupils reactive. Nostrils clear. Oral cavity is moist. Ears reveal no drainage. endotracheal tube in place an NG tube in place with tube feedings Neck reveals no JVD, carotid bruits, or thyromegaly. CHEST EXAMINATION: Trachea is central. Symmetrical expansion. Bilateral air entry is present. Rhonchi positive bilaterally CARDIAC: Normal S1, S2 with no gallops. No murmurs ABDOMEN: Soft. Bowel sounds normal. No organomegaly. No abdominal bruits. Extremities: 1+ edema. No clubbing or cyanosis Neurologically. Patient isarousable to painful stimuli RasS his score of -2 Skin: No rash or skin lesions. Psychiatric: Could not bases at this time Musculoskeletal: No joint swelling or deformity. Normal range of motion. - Labs CBC & Chem 7: 05/16/17 05:20 05/16/17 04:30 Labs: Abnormal Lab Results - Last 24 Hours (Table) 05/15/17 05/15/17 05/15/17 Range/Units 16:52 18:34 19:38 RBC (4.30-5.90) m/uL Hgb (13.0-17.5) gm/dL Hct (39.0-53.0) % MCHC (31.0-37.0) g/dL RDW (11.5-15.5) % Lymphocytes # (1.0-4.8) k/uL ABG pO2 (83-108) mmHg ABG Total CO2 (19-24) mmol/L ABG O2 Saturation (94-97) % Sodium (137-145) mmol/L BUN (9-20) mg/dL Creatinine (0.66-1.25) mg/dL Glucose (74-99) mg/dL POC Glucose (mg/dL) 276 H 274 H 232 H (75-99) mg/dL Calcium (8.4-10.2) mg/dL Total Bilirubin (0.2-1.3) mg/dL Total Protein (6.3-8.2) g/dL Albumin (3.5-5.0) g/dL 05/15/17 05/15/17 05/15/17 Range/Units 20:46 21:49 22:41 RBC (4.30-5.90) m/uL Hgb (13.0-17.5) gm/dL Hct (39.0-53.0) % MCHC (31.0-37.0) g/dL RDW (11.5-15.5) % Lymphocytes # (1.0-4.8) k/uL ABG pO2 (83-108) mmHg ABG Total CO2 (19-24) mmol/L ABG O2 Saturation (94-97) % Sodium (137-145) mmol/L BUN (9-20) mg/dL Creatinine (0.66-1.25) mg/dL Glucose (74-99) mg/dL POC Glucose (mg/dL) 210 H 223 H 197 H (75-99) mg/dL Calcium (8.4-10.2) mg/dL Total Bilirubin (0.2-1.3) mg/dL Total Protein (6.3-8.2) g/dL Albumin (3.5-5.0) g/dL 05/15/17 05/16/17 05/16/17 Range/Units 23:55 01:07 02:13 RBC (4.30-5.90) m/uL Hgb (13.0-17.5) gm/dL Hct (39.0-53.0) % MCHC (31.0-37.0) g/dL RDW (11.5-15.5) % Lymphocytes # (1.0-4.8) k/uL ABG pO2 (83-108) mmHg ABG Total CO2 (19-24) mmol/L ABG O2 Saturation (94-97) % Sodium (137-145) mmol/L BUN (9-20) mg/dL Creatinine (0.66-1.25) mg/dL Glucose (74-99) mg/dL POC Glucose (mg/dL) 191 H 176 H 164 H (75-99) mg/dL Calcium (8.4-10.2) mg/dL Total Bilirubin (0.2-1.3) mg/dL Total Protein (6.3-8.2) g/dL Albumin (3.5-5.0) g/dL 05/16/17 05/16/17 05/16/17 Range/Units 03:22 04:17 04:26 RBC (4.30-5.90) m/uL Hgb (13.0-17.5) gm/dL Hct (39.0-53.0) % MCHC (31.0-37.0) g/dL RDW (11.5-15.5) % Lymphocytes # (1.0-4.8) k/uL ABG pO2 146 H (83-108) mmHg ABG Total CO2 26 H (19-24) mmol/L ABG O2 Saturation 99.0 H (94-97) % Sodium (137-145) mmol/L BUN (9-20) mg/dL Creatinine (0.66-1.25) mg/dL Glucose (74-99) mg/dL POC Glucose (mg/dL) 138 H 140 H (75-99) mg/dL Calcium (8.4-10.2) mg/dL Total Bilirubin (0.2-1.3) mg/dL Total Protein (6.3-8.2) g/dL Albumin (3.5-5.0) g/dL 05/16/17 05/16/17 05/16/17 Range/Units 04:30 05:20 05:21 RBC 2.81 L (4.30-5.90) m/uL Hgb 7.3 L (13.0-17.5) gm/dL Hct 24.0 L (39.0-53.0) % MCHC 30.3 L (31.0-37.0) g/dL RDW 15.8 H (11.5-15.5) % Lymphocytes # 0.2 L (1.0-4.8) k/uL ABG pO2 (83-108) mmHg ABG Total CO2 (19-24) mmol/L ABG O2 Saturation (94-97) % Sodium 135 L (137-145) mmol/L BUN 58 H (9-20) mg/dL Creatinine 2.85 H (0.66-1.25) mg/dL Glucose 161 H (74-99) mg/dL POC Glucose (mg/dL) 169 H (75-99) mg/dL Calcium 7.4 L (8.4-10.2) mg/dL Total Bilirubin <0.1 L (0.2-1.3) mg/dL Total Protein 4.6 L (6.3-8.2) g/dL Albumin 2.1 L (3.5-5.0) g/dL 05/16/17 05/16/17 05/16/17 Range/Units 06:07 07:24 08:20 RBC (4.30-5.90) m/uL Hgb (13.0-17.5) gm/dL Hct (39.0-53.0) % MCHC (31.0-37.0) g/dL RDW (11.5-15.5) % Lymphocytes # (1.0-4.8) k/uL ABG pO2 (83-108) mmHg ABG Total CO2 (19-24) mmol/L ABG O2 Saturation (94-97) % Sodium (137-145) mmol/L BUN (9-20) mg/dL Creatinine (0.66-1.25) mg/dL Glucose (74-99) mg/dL POC Glucose (mg/dL) 183 H 180 H 170 H (75-99) mg/dL Calcium (8.4-10.2) mg/dL Total Bilirubin (0.2-1.3) mg/dL Total Protein (6.3-8.2) g/dL Albumin (3.5-5.0) g/dL 05/16/17 05/16/17 05/16/17 Range/Units 09:08 10:15 11:11 RBC (4.30-5.90) m/uL Hgb (13.0-17.5) gm/dL Hct (39.0-53.0) % MCHC (31.0-37.0) g/dL RDW (11.5-15.5) % Lymphocytes # (1.0-4.8) k/uL ABG pO2 (83-108) mmHg ABG Total CO2 (19-24) mmol/L ABG O2 Saturation (94-97) % Sodium (137-145) mmol/L BUN (9-20) mg/dL Creatinine (0.66-1.25) mg/dL Glucose (74-99) mg/dL POC Glucose (mg/dL) 158 H 138 H 174 H (75-99) mg/dL Calcium (8.4-10.2) mg/dL Total Bilirubin (0.2-1.3) mg/dL Total Protein (6.3-8.2) g/dL Albumin (3.5-5.0) g/dL 05/16/17 05/16/17 05/16/17 Range/Units 12:30 13:16 14:29 RBC (4.30-5.90) m/uL Hgb (13.0-17.5) gm/dL Hct (39.0-53.0) % MCHC (31.0-37.0) g/dL RDW (11.5-15.5) % Lymphocytes # (1.0-4.8) k/uL ABG pO2 (83-108) mmHg ABG Total CO2 (19-24) mmol/L ABG O2 Saturation (94-97) % Sodium (137-145) mmol/L BUN (9-20) mg/dL Creatinine (0.66-1.25) mg/dL Glucose (74-99) mg/dL POC Glucose (mg/dL) 220 H 192 H 147 H (75-99) mg/dL Calcium (8.4-10.2) mg/dL Total Bilirubin (0.2-1.3) mg/dL Total Protein (6.3-8.2) g/dL Albumin (3.5-5.0) g/dL Microbiology - Last 24 Hours (Table) 05/14/17 11:10 Gram Stain - Final Bronchial Washings - Random Bronchial Washings Culture - Final 05/11/17 00:50 Blood Culture - Preliminary Blood No Growth after 120 hours Assessment and Plan Plan: #1 acute hypoxic and hypercapnic respiratory failure. currently intubated, sedated hypoxic respiratory failure secondary to bilateral pneumonia patient on broad-spectrum antibiotics and hypercapnic respiratory failure secondary to COPD exacerbation #2 acute COPD exacerbation #3 bilateral pneumonia probably pneumococcal #4 diabetes type 2 insulin-dependent #5 acute on chronic CHF with diastolic dysfunction ejection fraction 55-50% #6 severe pulmonary hypertension #7 hypertension #8 Hyperlipidemia #9 History of previous smoking #10 acute on chronic kidney disease stage IV #11 CKD likely due to diabetic nephropathy and hypertensive nephrosclerosis #12 peripheral vascular disease #13 coronary artery disease status post bypass graft #14history of cardiac block status post pacemaker insertion/AICD insertion Plan: Patient is on mechanical ventilator. Continue the antibiotics and breathing treatments and IV steroids. Continue to follow renal function. Patient will be getting hemodialysis today. Pulmonary and nephrology is following this patient. Prognosis is guarded with multiple medical problems and comorbid conditions. patient is on vancomycin and Ceptazidime.
[2017-05-16] MEDS: LEVOFLOXACIN 500MG-D5W PMX 500 MG in DEXTROSE/WATER 1 100ML.BAG IVPB SCH (14:58)
[2017-05-16 15:11] LABS: Glucose,Whole Blood 113 mg/dL (75-99)
[2017-05-16 16:14] LABS: Glucose,Whole Blood 154 mg/dL (75-99)
[2017-05-16] MEDS: LORazepam 2 MG/ML INJ IV PRN (17:27)
[2017-05-16 17:44] LABS: Glucose,Whole Blood 157 mg/dL (75-99)
[2017-05-16 18:24] LABS: Glucose,Whole Blood 146 mg/dL (75-99)
[2017-05-16 19:00] LABS: Glucose,Whole Blood 169 mg/dL (75-99)
[2017-05-16] MEDS: ATORVASTATIN 40 MG TAB PO SCH (20:36)
[2017-05-16] MEDS: FOLIC ACID 1 MG TAB PO SCH (20:36)
[2017-05-16 21:46] LABS: Glucose,Whole Blood 276 mg/dL (75-99)
[2017-05-16 22:47] LABS: Glucose,Whole Blood 208 mg/dL (75-99)
[2017-05-17 01:01] LABS: Glucose,Whole Blood 190 mg/dL (75-99)
[2017-05-17] MEDS: PROPOFOL 1,000 MG/100 ML VIAL IV SCH ×5 (02:50→23:50)
[2017-05-17 03:02] LABS: Glucose,Whole Blood 238 mg/dL (75-99)
[2017-05-17 04:39] LABS: Basophils % (A) 0 %; CH 25.8; CHCM 29.7; Eosinophils % (A) 0 %; HCT 23.5 % (39.0-53.0); HDW 2.58; HGB 7.2 gm/dL (13.0-17.5); Hypochromasia Marked; Luc # (Auto) 0.06; Luc % (Auto) 1; Lymphocytes # (A) 0.2 k/uL (1.0-4.8); Lymphocytes % (A) 2 %; MCH 26.6 pg (25.0-35.0); MCHC 30.5 g/dL (31.0-37.0); Mean Platelet Volume 8.8; Monocytes # (A) 0.3 k/uL (0-1.0); Monocytes % (A) 3 %; Neutrophils % (A) 93 %; RDW 15.8 % (11.5-15.5); WBC 8.5 k/uL (3.8-10.6); WBC (Perox) 8.56
[2017-05-17 04:48] LABS: Calcium 7.6 mg/dL (8.4-10.2); Phosphorous 4.5 mg/dL (2.5-4.5); Potassium 4.2 mmol/L (3.5-5.1)
[2017-05-17 04:54] LABS: ABG HCO3 24 mmol/L (21-25); ABG PCO2 38 mmHg (35-45); ABG PH 7.41 (7.35-7.45); ABG PO2 93 mmHg (83-108); ABG TCO2 25 mmol/L (19-24)
[2017-05-17 04:55] LABS: ABG Base Excess -0.3 mmol/L
[2017-05-17] MEDS: CLEVIDIPINE BUTYRATE 25 MG in EMPTY BAG 1 BAG IV SCH ×3 (05:36→23:16)
[2017-05-17 07:06] LABS: Glucose,Whole Blood 219 mg/dL (75-99)
--- NOTE | 2017-05-17 07:13 | XR ---
EXAMINATION TYPE: XR chest 1V portable DATE OF EXAM: 05/17/2017 Comparison: 05/16/2017 Clinical History: 67-year-old male Tube placement Findings: ET tube tip is approximately 2.5 cm from the kym and has been advanced as compared to prior exam. NG tube courses below the diaphragm. Left anterior chest wall ICD generator with right atrial, right ventricular, and coronary sinus leads. Median sternotomy wires are present with post-CABG clips. The heart remains mildly enlarged. Diffuse interstitial and vascular prominence slightly improved fro m prior. There is improving aeration in the right mid and lower lung. Some persistent airspace opacit y in the left perihilar region and along the left heart margin. Impression: 1. ET tube tip advanced in the interval. It is located 2.5 cm from the kym. 2. Improving aeration though with residual diffuse interstitial opacities and residual airspace disea se in the left perihilar region and left base. Correlate for persistent but improving CHF.
[2017-05-17] MEDS: IPRATROPIUM-ALBUTEROL 3 ML NEB INHALATION SCH ×4 (07:51→20:03)
[2017-05-17] MEDS ORDERED: FUROSEMIDE 10 MG/ML 10 ML VIAL IV STA (08:36)
--- NOTE | 2017-05-17 08:44 | P.PN ---
Subjective Patient is seen in follow-up for acute kidney injury on chronic kidney disease. Patient has chronic kidney disease stage IIIB secondary to nephrosclerosis and diabetic kidney disease with baseline creatinine near 2. His creatinine peaked at 5.8 this admission. Patient appeared quite lethargic on May 13 and ABG was suggestive of mixed metabolic and respiratory acidosis. He is currently in intensive care unit requiring ventilator support. He was oliguric but urine output now is 30-60 mL an hour. He is off all vasopressors at this time. Tube feeds ave been started. He has undergone 2 treatments of hemodialysis so far. Last hemodialysis was on May 15. Vital signs are stable. General: The patient appeared well nourished and normally developed. Intubated. HEENT: Head exam is unremarkable. Neck is without jugular venous distension. LUNGS: Scattered rhonchi. Breath sounds decreased. HEART: Rate and Rhythm are regular. First and second heart sounds normal. No murmurs, rubs or gallops. ABDOMEN: Abdominal exam reveals normal bowel sounds. Non-tender and non- distended. EXTREMITITES: No clubbing, cyanosis, or edema. Objective - Vital Signs Vital signs: Vital Signs Temp 98.2 F 05/16/17 20:00 Pulse 61 05/17/17 08:25 Resp 24 05/17/17 07:00 BP 189/72 05/14/17 17:10 Pulse Ox 96 05/17/17 07:00 Intake & Output 05/16/17 05/17/17 05/17/17 18:59 06:59 18:59 Intake Total 1948.552 697.164 Output Total 590 560 35 Balance 1358.552 137.164 -35 Weight 94.4 kg Intake: IV 320 20 .9 220 20 Sodium Chloride 0.9% 1, 50 000 ml @ 50 mls/hr IV . Q20H [facility] Rx#:[id number] cefTAZidime 0.5 gm In 50 Sodium Chloride 0.9% 50 ml @ 100 mls/hr IVPB DAILY [facility] Rx#:[id number] Intake, IV Titration 848.552 377.164 Amount Clevidipine Butyrate 25 33.033 33.400 mg In Empty Bag 1 bag @ 1 MG/HR 2 mls/hr IV .Q24H [facility] Rx#:[id number] Insulin Regular 100 unit 59.126 57.647 In Sodium Chloride 0.9% 100 ml @ Per Protocol IV .Q0M [facility] Rx#:[id number] Levofloxacin 500Mg-D5w 100 Pmx 500 mg In Dextrose/ Water 1 100ml.bag @ 100 mls/hr IVPB Q48H [facility] Rx#: [id number] Propofol 1,000 mg In 100 356.393 286.117 ml @ Titrate IV .Q0M [facility] Rx#:[id number] Sodium Chloride 0.9% 1, 50 000 ml @ 50 mls/hr IV . Q20H [facility] Rx#:[id number] Vancomycin 1,500 mg In 250 Sodium Chloride 0.9% 250 ml @ 125 mls/hr IVPB ONCE ONE Rx#:[id number] Tube Feeding 780 300 Output: Urine 590 560 35 Other: Voiding Method Indwelling Catheter Indwelling Catheter ABP, PAP, CO, CI - Last Documented Arterial Blood Pressure 150/50 - Labs CBC & Chem 7: 05/17/17 04:30 05/17/17 04:30 Labs: Abnormal Lab Results - Last 24 Hours (Table) 05/16/17 05/16/17 05/16/17 Range/Units 09:08 10:15 11:11 RBC (4.30-5.90) m/uL Hgb (13.0-17.5) gm/dL Hct (39.0-53.0) % MCHC (31.0-37.0) g/dL RDW (11.5-15.5) % Neutrophils # (1.3-7.7) k/uL Lymphocytes # (1.0-4.8) k/uL ABG Total CO2 (19-24) mmol/L Sodium (137-145) mmol/L BUN (9-20) mg/dL Creatinine (0.66-1.25) mg/dL Glucose (74-99) mg/dL POC Glucose (mg/dL) 158 H 138 H 174 H (75-99) mg/dL Calcium (8.4-10.2) mg/dL 05/16/17 05/16/17 05/16/17 Range/Units 12:30 13:16 14:29 RBC (4.30-5.90) m/uL Hgb (13.0-17.5) gm/dL Hct (39.0-53.0) % MCHC (31.0-37.0) g/dL RDW (11.5-15.5) % Neutrophils # (1.3-7.7) k/uL Lymphocytes # (1.0-4.8) k/uL ABG Total CO2 (19-24) mmol/L Sodium (137-145) mmol/L BUN (9-20) mg/dL Creatinine (0.66-1.25) mg/dL Glucose (74-99) mg/dL POC Glucose (mg/dL) 220 H 192 H 147 H (75-99) mg/dL Calcium (8.4-10.2) mg/dL 05/16/17 05/16/17 05/16/17 Range/Units 15:09 16:13 17:43 RBC (4.30-5.90) m/uL Hgb (13.0-17.5) gm/dL Hct (39.0-53.0) % MCHC (31.0-37.0) g/dL RDW (11.5-15.5) % Neutrophils # (1.3-7.7) k/uL Lymphocytes # (1.0-4.8) k/uL ABG Total CO2 (19-24) mmol/L Sodium (137-145) mmol/L BUN (9-20) mg/dL Creatinine (0.66-1.25) mg/dL Glucose (74-99) mg/dL POC Glucose (mg/dL) 113 H 154 H 157 H (75-99) mg/dL Calcium (8.4-10.2) mg/dL 05/16/17 05/16/17 05/16/17 Range/Units 18:23 18:59 21:04 RBC (4.30-5.90) m/uL Hgb (13.0-17.5) gm/dL Hct (39.0-53.0) % MCHC (31.0-37.0) g/dL RDW (11.5-15.5) % Neutrophils # (1.3-7.7) k/uL Lymphocytes # (1.0-4.8) k/uL ABG Total CO2 (19-24) mmol/L Sodium (137-145) mmol/L BUN (9-20) mg/dL Creatinine (0.66-1.25) mg/dL Glucose (74-99) mg/dL POC Glucose (mg/dL) 146 H 169 H 276 H (75-99) mg/dL Calcium (8.4-10.2) mg/dL 05/16/17 05/17/17 05/17/17 Range/Units 22:45 00:59 03:00 RBC (4.30-5.90) m/uL Hgb (13.0-17.5) gm/dL Hct (39.0-53.0) % MCHC (31.0-37.0) g/dL RDW (11.5-15.5) % Neutrophils # (1.3-7.7) k/uL Lymphocytes # (1.0-4.8) k/uL ABG Total CO2 (19-24) mmol/L Sodium (137-145) mmol/L BUN (9-20) mg/dL Creatinine (0.66-1.25) mg/dL Glucose (74-99) mg/dL POC Glucose (mg/dL) 208 H 190 H 238 H (75-99) mg/dL Calcium (8.4-10.2) mg/dL 05/17/17 05/17/17 05/17/17 Range/Units 04:20 04:30 04:30 RBC 2.70 L (4.30-5.90) m/uL Hgb 7.2 L (13.0-17.5) gm/dL Hct 23.5 L (39.0-53.0) % MCHC 30.5 L (31.0-37.0) g/dL RDW 15.8 H (11.5-15.5) % Neutrophils # 8.0 H (1.3-7.7) k/uL Lymphocytes # 0.2 L (1.0-4.8) k/uL ABG Total CO2 25 H (19-24) mmol/L Sodium 134 L (137-145) mmol/L BUN 81 H* (9-20) mg/dL Creatinine 2.90 H (0.66-1.25) mg/dL Glucose 236 H (74-99) mg/dL POC Glucose (mg/dL) (75-99) mg/dL Calcium 7.6 L (8.4-10.2) mg/dL 05/17/17 Range/Units 07:04 RBC (4.30-5.90) m/uL Hgb (13.0-17.5) gm/dL Hct (39.0-53.0) % MCHC (31.0-37.0) g/dL RDW (11.5-15.5) % Neutrophils # (1.3-7.7) k/uL Lymphocytes # (1.0-4.8) k/uL ABG Total CO2 (19-24) mmol/L Sodium (137-145) mmol/L BUN (9-20) mg/dL Creatinine (0.66-1.25) mg/dL Glucose (74-99) mg/dL POC Glucose (mg/dL) 219 H (75-99) mg/dL Calcium (8.4-10.2) mg/dL Microbiology - Last 24 Hours (Table) 05/11/17 00:50 Blood Culture - Final Blood No Growth after 144 hours 05/14/17 11:10 Gram Stain - Final Bronchial Washings - Random Bronchial Washings Culture - Final Assessment and Plan Plan: Assessment: #1. Acute kidney injury secondary to ATN secondary to pneumonia and further worsened with the use of diuretics and MIC inhibitor. Patient was also hypotensive requiring vasopressors. Postvoid residual was 170. Creatinine peaked at 5.8 this admission. He was started on hemodialysis and has undergone 2 treatments so far - last HD on 05/15/17. Creatinine today is stable at 2.9. BUN elevated which is partially related to IV steroids. #2. Chronic kidney disease stage IIIB secondary to nephrosclerosis and diabetic kidney disease with baseline creatinine near 2. #3. Hyperkalemia secondary to acute kidney injury and metabolic acidosis. Resolved. #4. Metabolic acidosis secondary to acute kidney injury. Respiratory acidosis present as well. Improved. #5. Pneumonia, maintain on antibiotics. #6. Anemia with severe iron deficiency, status post 3 doses of IV iron. Monitor hemoglobin. May require blood transition. #7. Hyperphosphatemia secondary to acute kidney injury. Improved postdialysis. Plan: Hep-Lock IV fluids. Lasix 60 mg IV once today. Maintain tube feeds. Maintain De Dios catheter for accurate I's and os. I will hold dialysis today and continue to assess on a day-to-day basis. Wean cleviprex. Add hydralazine 10 mg every 4 hours as needed for systolic blood pressure greater than 160.
[2017-05-17] MEDS: FERROUS SULFATE 325 MG TAB PO SCH ×2 (09:06→18:10)
[2017-05-17] MEDS: CARVEDILOL 12.5 MG TAB PO SCH ×2 (09:07→21:45)
[2017-05-17] MEDS: ASPIRIN 81 MG PO SCH ×2 (09:07→21:45)
[2017-05-17] MEDS: hydrALAZINE HCL 25 MG TAB PO SCH ×2 (09:08→21:44)
[2017-05-17] MEDS: ENOXAPARIN 30 MG/0.3 ML SYRINGE SQ SCH (09:08)
[2017-05-17] MEDS: CLOPIDOGREL 75 MG TAB PO SCH (09:08)
[2017-05-17] MEDS: CHLORHEXIDINE GLUCONATE 15 ML CUP MUCOUS MEM SCH ×2 (09:08→21:44)
[2017-05-17] MEDS: methylPREDNISolone SOD SUCCI 40 MG/ML 1 ML VIAL IV SCH ×2 (09:09→21:44)
[2017-05-17] MEDS: ISOSORBIDE MONONITRATE ER 30 MG TAB.ER.24H PO SCH (09:09)
[2017-05-17] MEDS: VITAMIN E (DL,TOCOPHERYL ACET) 400 UNIT CAP PO SCH (09:09)
[2017-05-17 09:33] LABS: Glucose,Whole Blood 203 mg/dL (75-99)
[2017-05-17] MEDS: INSULIN REGULAR 100 UNIT in SODIUM CHLORIDE 0.9% 100 ML IV SCH ×2 (10:18→23:06)
[2017-05-17 11:40] LABS: Glucose,Whole Blood 173 mg/dL (75-99)
[2017-05-17] MEDS: hydrALAZINE HCL 20 MG/ML 1 ML VIAL IVP PRN (11:42)
[2017-05-17] MEDS: HYDROmorphone 0.5 MG/0.5 ML SYRINGE IVP PRN (12:18)
[2017-05-17 13:16] LABS: Glucose,Whole Blood 181 mg/dL (75-99)
--- NOTE | 2017-05-17 14:22 | P.PN ---
Subjective Progress Note Date: 05/17/17 Principal diagnosis: Acute hypoxic respiratory failure secondary to pneumonia, congestive heart failure, and underlying COPD. A 67-year-old male patient who is being seen in consultation upon the request of Dr. Jerez for worsening shortness of breath. At the time of my evaluation , the patient was noted to be quite lethargic and somnolent. He was arousable. He had increased cough and congestion. He had diminished breath sounds throughout his lung pearson bilaterally. He was placed on oxygen at 3 L/m nasal cannula. A blood gas was ordered and it showed a pH of 7.2 with a pCO2 of 50 and a pO2 of 78 at 3 L/m nasal cannula. The patient was also found to be in acute on top of chronic renal failure with an underlying metabolic acidosis and acute hyperkalemia with a potassium level of 5.9. For that reason I made recommendations for this patient to be transferred to the intensive care unit. I was also told that the patient was having hypoglycemic events and he was placed on D5 half-normal saline at rate of 70 and an hour. This patient has history of COPD. The patient is an ex-smoker. His undergone coronary artery bypass surgery 2 years back and [facility] for underlying coronary artery disease. He is also known to have ischemic artery myopathy and has had an AICD in place. He suffers from chronic renal failure. He has hypertension and hyperlipidemia and diabetes mellitus. He presented to the hospital because of increased cough congestion and worsening shortness of breath. No major swelling in lower extremities. No orthopnea. No peripheral edema. His white cell count was nonelevated. His hemoglobin was low and the patient has chronic anemia with a hemoglobin of 8.3-8.4 and he was given IV iron. He was being diuresis with IV Lasix and diuretics got placed on hold as the patient developed an acute on top of chronic renal failure. The patient is also covered with broad-spectrum antibiotics and is currently on IV Fortaz. On 05/14/2017 I'm seeing this patient for a follow-up. The patient is quite lethargic and somnolent and he still continues to have significant limitations level of consciousness. Overnight he was also agitated and confused and he had required a dose of Ativan 1 mg which controlled his agitation. Overnight he was also kept on a BiPAP at a pressure of 12/5 cm of water and FiO2 of 40%. He continues to be oliguric. His renal function is progressively getting worse in his creatinine is up to 5.8. He was started on a bicarb drip yesterday and his serum bicarb is up to 17 and he has an anion gap of 17. The patient's chest x- ray from today showing multilobar pneumonia. A CAT scan of the chest was also done yesterday that showed bilateral pneumonia with airspace disease in the left upper lobe and some minimal airspace disease present in the right lung base. He has a weak cough. He is having difficulties in breathing and up his rest or secretions. His was unable to swallow today due to his marked diminishment in level of consciousness. And based on all this, I made decision to intubate the patient and place him on a mechanical ventilator. I also contacted nephrology and the patient is being considered for hemodialysis today. He is diabetic. His blood sugars have been within the hypoglycemic range and his most recent blood sugar is 163. He remains on D5 with 3 A of bicarb at the rate of 75 mL an hour. On 05/15/2017 the patient is being seen in follow-up in the intensive care unit. As mentioned, the patient was intubated and placed on a mechanical ventilator. This morning his well sedated and is calm and comfortable on Diprivan running at 50 mics. He is also on assist control mode of ventilation at the rate of 24, tidal volume of 500, FiO2 of 60% and a PEEP of 5. Chest x- ray from this morning shows adequate positioning of the orotracheal and orogastric tube. There is some atelectatic changes and left lung base. Overall the aeration is improved. The patient had a bronchoscopy yesterday and the bronchial lavage has been sent for microbial analysis and the results are still pending for now. Meanwhile he is on a broad-spectrum antibiotic coverage including a combination of cefepime, Levaquin and vancomycin. No fever. No hypotension. No chills. The patient is producing diminished urine output and he is still in acute kidney injury. A dialysis catheter was inserted yesterday and received his first session of dialysis yesterday. No volume was taken off and the patient had strict dialysis. The patient is improving in terms of his metabolic derangements. In fact on today's blood gases having a component of acute Minnie alkalosis with a pH of 7.5 and a pCO2 of 31 and pO2 of 98. As for his serum bicarb, there is up to 22 and the creatinine is down to 4.12. The patient is on a sliding scale insulin coverage for blood sugar control. He was having issues with elevated blood pressure post intubation. Currently is on a clevidipine running at 1 mg an hour and his blood pressure is under good control. On 05/16/2017 the patient is being seen in follow-up in the intensive care unit. The patient remains intubated on a mechanical ventilator. The morning vent setting showed an assist-control mode at the rate of 20, tidal volume of 450, FiO2 of 60% and PEEP of 5. Morning blood gases showed a pH of 7.45 with a pCO2 of 36 and pO2 46. Based on this the FiO2 was gradually wean down to 50% and hopefully down to 40%. Chest x-ray shows worsening of the right the pulmonary infiltrates especially on the left. ET tube is in a good location. Bronchoscopy was done and the bronchioloalveolar lavage has not shown any microbial growth. Meanwhile the patient remains on a broad-spectrum antibiotics and the patient is currently on a combination of cefepime and Levaquin and vancomycin. Hemodynamically he is doing well. He is on no pressors. In fact he was requiring clevidipine drip for blood pressure control. His blood pressure is controlled on 2 mg of clevidipine drip. He underwent dialysis yesterday without ultrafiltration. His creatinine is down to 2.85 and the patient is producing urine and order of 50-75 mL an hour. His urine output is improved. I'm not sure if he is going to require dialysis tomorrow. Discussed the case with the nephrology. Would like to give him a dose of Lasix to augment his urine output and he will be receiving 60 mg IV push. The patient is still sedated on Diprivan. Diprivan is running at 50 mics. He can still wake himself up through the sedation. He is moving all 4 extremities. His sedation has been titrated on Diprivan at times at is being brought up to 60 mics. The patient's cardiac ventricular paced. He is tolerating his tube feeds. He is on insulin drip running at 5 units an hour. He is still on a bronchodilators and systemic steroids for his COPD exacerbation. No other significant events overnight. Reevaluated today on 05/17/2017, patient remains on mechanical ventilation, presently a tidal volume of 450 assist control rate of 20 FiO2 is 45% and PEEP is 5. ABG showed a pO2 of 93 pCO2 of 38 pH of 7.41. Chest x-ray was reviewed, there is evidence of diffuse interstitial opacities and airspace disease bilaterally more so in the left perihilar area I believe the findings are mostly findings of pneumonia and congestive heart failure. His bronchoscopy has been nondiagnostic. Patient remains on broad-spectrum antibiotics in the form of cefepime and Levaquin as well as vancomycin. Patient is hemodynamically stable, not requiring any drips, he is however on clevidipine for elevated blood pressure. CBC showed normal WBC count hemoglobin is 7.2 BUN is 81 creatinine 2.90. Urine output seems to be adequate. And improving. Patient is not requiring dialysis at this point. Patient remains on propofol for sedation. He is also on nutritional support via enteral feeding. Remains on bronchodilators, remains on insulin drip. Objective - Vital Signs Vital signs: Vital Signs Temp 98.1 F 05/17/17 12:00 Pulse 59 L 05/17/17 13:00 Resp 25 H 05/17/17 13:00 BP 189/72 05/14/17 17:10 Pulse Ox 96 05/17/17 13:00 Intake & Output 05/16/17 05/17/17 05/17/17 18:59 06:59 18:59 Intake Total 1948.552 267.134 1095.470 Output Total 590 560 480 Balance 1358.552 137.164 591.470 Weight 94.4 kg 94.4 kg Intake: IV 320 20 230 .9 220 20 180 Sodium Chloride 0.9% 1, 50 000 ml @ 50 mls/hr IV . Q20H [facility] Rx#:[id number] cefTAZidime 0.5 gm In 50 50 Sodium Chloride 0.9% 50 ml @ 100 mls/hr IVPB DAILY [facility] Rx#:[id number] Intake, IV Titration 848.552 377.164 221.470 Amount Clevidipine Butyrate 25 33.033 33.400 45.4 mg In Empty Bag 1 bag @ 1 MG/HR 2 mls/hr IV .Q24H [facility] Rx#:[id number] Insulin Regular 100 unit 59.126 57.647 76.070 In Sodium Chloride 0.9% 100 ml @ Per Protocol IV .Q0M [facility] Rx#:[id number] Levofloxacin 500Mg-D5w 100 Pmx 500 mg In Dextrose/ Water 1 100ml.bag @ 100 mls/hr IVPB Q48H [facility] Rx#: [id number] Propofol 1,000 mg In 100 356.393 286.117 100 ml @ Titrate IV .Q0M [facility] Rx#:[id number] Sodium Chloride 0.9% 1, 50 000 ml @ 50 mls/hr IV . Q20H [facility] Rx#:[id number] Vancomycin 1,500 mg In 250 Sodium Chloride 0.9% 250 ml @ 125 mls/hr IVPB ONCE ONE Rx#:[id number] Tube Feeding 780 300 590 Other 30 Output: Urine 590 560 480 Other: Voiding Method Indwelling Catheter Indwelling Catheter Indwelling Catheter ABP, PAP, CO, CI - Last Documented Arterial Blood Pressure 144/44 - Exam - Exam Patient is well sedated, intubated on a mechanical ventilator. Orogastric and orotracheal tube are both in place. He is calm and comfortable. My normal had neck is short and thick and supple and there is no significant neck veins. No JVDs. No goiter.Head exam was generally normal. There was no scleral icterus or corneal arcus. Mucous membranes were moist. Lungs sounds are diminished bilaterally otherwise clear in breast on that equal and symmetrical.Cardiac exam revealed the PMI to be normally situated and sized. The rhythm was regular and no extrasystoles were noted during several minutes of auscultation. The first and second heart sounds were normal and physiologic splitting of the second heart sound was noted. There were no murmurs, rubs, clicks, or gallops.Abdominal exam revealed normal bowel sounds. The abdomen was soft, non- tender, and without masses, organomegaly, or appreciable enlargement of the abdominal aorta. Patient is obese and organs cannot be accurately palpated on today's evaluation.Examination of the extremities revealed easily palpable radial, femoral and pedal pulses. There was no cyanosis, clubbing or edema. Neurologically the patient is sedated yet he is still moving all 4 extremities upon lowering sedation.Examination of the skin revealed no evidence of significant rashes, suspicious appearing nevi or other concerning lesions. - Labs CBC & Chem 7: 05/17/17 04:30 10/16/17 04:30 Labs: Abnormal Lab Results - Last 24 Hours (Table) 05/16/17 05/16/17 05/16/17 Range/Units 14:29 15:09 16:13 RBC (4.30-5.90) m/uL Hgb (13.0-17.5) gm/dL Hct (39.0-53.0) % MCHC (31.0-37.0) g/dL RDW (11.5-15.5) % Neutrophils # (1.3-7.7) k/uL Lymphocytes # (1.0-4.8) k/uL ABG Total CO2 (19-24) mmol/L Sodium (137-145) mmol/L BUN (9-20) mg/dL Creatinine (0.66-1.25) mg/dL Glucose (74-99) mg/dL POC Glucose (mg/dL) 147 H 113 H 154 H (75-99) mg/dL Calcium (8.4-10.2) mg/dL 05/16/17 05/16/17 05/16/17 Range/Units 17:43 18:23 18:59 RBC (4.30-5.90) m/uL Hgb (13.0-17.5) gm/dL Hct (39.0-53.0) % MCHC (31.0-37.0) g/dL RDW (11.5-15.5) % Neutrophils # (1.3-7.7) k/uL Lymphocytes # (1.0-4.8) k/uL ABG Total CO2 (19-24) mmol/L Sodium (137-145) mmol/L BUN (9-20) mg/dL Creatinine (0.66-1.25) mg/dL Glucose (74-99) mg/dL POC Glucose (mg/dL) 157 H 146 H 169 H (75-99) mg/dL Calcium (8.4-10.2) mg/dL 05/16/17 05/16/17 05/17/17 Range/Units 21:04 22:45 00:59 RBC (4.30-5.90) m/uL Hgb (13.0-17.5) gm/dL Hct (39.0-53.0) % MCHC (31.0-37.0) g/dL RDW (11.5-15.5) % Neutrophils # (1.3-7.7) k/uL Lymphocytes # (1.0-4.8) k/uL ABG Total CO2 (19-24) mmol/L Sodium (137-145) mmol/L BUN (9-20) mg/dL Creatinine (0.66-1.25) mg/dL Glucose (74-99) mg/dL POC Glucose (mg/dL) 276 H 208 H 190 H (75-99) mg/dL Calcium (8.4-10.2) mg/dL 05/17/17 05/17/17 05/17/17 Range/Units 03:00 04:20 04:30 RBC (4.30-5.90) m/uL Hgb (13.0-17.5) gm/dL Hct (39.0-53.0) % MCHC (31.0-37.0) g/dL RDW (11.5-15.5) % Neutrophils # (1.3-7.7) k/uL Lymphocytes # (1.0-4.8) k/uL ABG Total CO2 25 H (19-24) mmol/L Sodium 134 L (137-145) mmol/L BUN 81 H* (9-20) mg/dL Creatinine 2.90 H (0.66-1.25) mg/dL Glucose 236 H (74-99) mg/dL POC Glucose (mg/dL) 238 H (75-99) mg/dL Calcium 7.6 L (8.4-10.2) mg/dL 05/17/17 05/17/17 05/17/17 Range/Units 04:30 07:04 09:19 RBC 2.70 L (4.30-5.90) m/uL Hgb 7.2 L (13.0-17.5) gm/dL Hct 23.5 L (39.0-53.0) % MCHC 30.5 L (31.0-37.0) g/dL RDW 15.8 H (11.5-15.5) % Neutrophils # 8.0 H (1.3-7.7) k/uL Lymphocytes # 0.2 L (1.0-4.8) k/uL ABG Total CO2 (19-24) mmol/L Sodium (137-145) mmol/L BUN (9-20) mg/dL Creatinine (0.66-1.25) mg/dL Glucose (74-99) mg/dL POC Glucose (mg/dL) 219 H 203 H (75-99) mg/dL Calcium (8.4-10.2) mg/dL 05/17/17 05/17/17 Range/Units 11:37 13:14 RBC (4.30-5.90) m/uL Hgb (13.0-17.5) gm/dL Hct (39.0-53.0) % MCHC (31.0-37.0) g/dL RDW (11.5-15.5) % Neutrophils # (1.3-7.7) k/uL Lymphocytes # (1.0-4.8) k/uL ABG Total CO2 (19-24) mmol/L Sodium (137-145) mmol/L BUN (9-20) mg/dL Creatinine (0.66-1.25) mg/dL Glucose (74-99) mg/dL POC Glucose (mg/dL) 173 H 181 H (75-99) mg/dL Calcium (8.4-10.2) mg/dL Microbiology - Last 24 Hours (Table) 05/11/17 00:50 Blood Culture - Final Blood No Growth after 144 hours Assessment and Plan Plan: 1 bilateral pneumonia worse on the left with secondary acute hypoxic respiratory failure. Patient is currently intubated on a mechanical ventilator. The bronchoscopy and bronchial lavage showed no microbial growth and the patient remains on a combination of cefepime and Levaquin and vancomycin. Awaiting final cultures from the bronchioloalveolar lavage. Meanwhile, continue the antibiotics. Continue the vent support. Drop down the FiO2 down to 45 % Sedation holiday. No plans for extubation today. 2 acute COPD exacerbation secondary to left lung pneumonia, improving and the steroid dose can be tapered further. 3 acute hypertensive reaction currently on clevidipine drip for blood pressure control, currently on 2 mg of clevidipine drip for tighter blood pressure control 4 diastolic congestion heart failure, ischemic cardiomyopathy and the most recent echocardiogram shows a low normal ejection fraction with an EF around 50- 55%, severely dilated LA, severe pulmonary hypertension with a PA pressure of 68 5 coronary artery disease with previous coronary artery bypass surgery 6 history of cardiac block status post pacemaker insertion/AICD insertion 7 acute on top of chronic renal failure, likely secondary to diuresis. The patient overall had 2 sessions of hemodialysis. His urine output is improved. His acid base balance is also improved. He had severe metabolic acidosis which got corrected. He is producing better urine output. Nephrology is on the case. He has some bleeding at the dialysis catheter insertion site in his right groin. This was monitored very closely. Is on a combination of aspirin and Plavix. His correlation profile is within normal limits. Unsure if he is given needs some more dialysis within the next 24 hours. He'll be monitored very closely. 8 chronic renal failure with stage III to 4 chronic kidney disease 9 diabetes mellitus, currently in size Blood sugar control 10 hypertension 11 hyperlipidemia. 12 hyperkalemia, improved 15 peripheral vascular disease 14 previous history of GI bleed 15 chronic iron deficiency 16 metabolic acidosis currently improved 17 enteral feeding for nutritional support via tube feeds 18 bleeding from catheter insertion site in the right femoral vein, currently inactive 19 anemia where the patient's hemoglobin is down to 7.3. Recommendation: Continue antibiotics, continue diuretics, continue bronchodilators, not requiring dialysis at this point since the patient has excellent urine output, continue to titrate FiO2 down, not ready for weaning and extubation at this point, but this will be addressed hopefully in the next 24-48 hours. Patient remains critically ill, we'll continue sedation holidays every day, critical care time is 35 minutes. Time with Patient: Greater than 30 Time with Patient: Greater than 30
[2017-05-17 16:11] LABS: Glucose,Whole Blood 139 mg/dL (75-99)
[2017-05-17 17:10] LABS: Glucose,Whole Blood 193 mg/dL (75-99)
--- NOTE | 2017-05-17 17:56 | PN ---
PROGRESS NOTE ATTENDING NOTE: This patient was seen and examined by me. I discussed the case with my nurse practitioner, Lucho Pradeep. This is a patient who was admitted with pneumonia and renal failure, went into respiratory failure, had to be transferred to the ICU. Patient is on the ventilator with an FIO2 of 60 and a PEEP of 5. Drips include insulin and Cleviprex. The patient has been off Levophed. Making reasonable urine. The patient is intubated, getting tube feeding at about 50 mL/hour. CURRENT MEDICATIONS: Current medications include: 1. IV Solu-Medrol. 2. IV Levaquin. 3. Insulin drip. 4. IV Cleviprex. 5. IV ceftazidime. PHYSICAL EXAMINATION: Temperature 98.1, pulse 59, respiration 21, blood pressure 169/52. ENT: Patient is intubated. NECK: JVD unable to assess. Mass not palpable. RESPIRATORY: Effort increased. LUNGS: Diminished breath sounds. CARDIOVASCULAR: Heart sounds regular. ABDOMEN: Soft, nontender. NEUROLOGICAL: Patient is sedated. Pupils are equal. Plantars are downgoing. INVESTIGATIONS: Accu-Cheks are noted. Hemoglobin 7.2, potassium 4.2. BUN 81, creatinine 2. ASSESSMENT: 1. Bilateral pneumonia; suspect Gram-negative organism causing acute hypoxic respiratory failure, on ventilator support. 2. Status post bronchoscopy. 3. Acute chronic obstructive pulmonary disease exacerbation. 4. Essential hypertension with urgency, on clevidipine drip. 5. Acute on chronic congestive heart failure with probably systolic and diastolic dysfunction; ejection fraction around 50%. 6. Severe secondary pulmonary hypertension. 7. Coronary artery disease with prior history of coronary artery bypass. 8. AICD and a pacemaker in place. 9. Acute renal failure, multifactorial, probably acute tubular necrosis, now hemodialysis-dependent. 10.Chronic kidney disease, probably hypertensive nephrosclerosis, stage III to IV, which has progressed. 11.Hyperlipidemia. 12.Hyperkalemia. 13.Peripheral arterial disease. 14.Metabolic acidosis. Clarification: Chronic kidney disease, stage IV, from diabetic nephropathy and hypertensive nephrosclerosis. Clarification: Severe secondary pulmonary hypertension secondary to chronic obstructive pulmonary disease. PLAN: Continue current medication and treatment plan, including antibiotics, respiratory support. Follow with Critical Care. Overall prognosis is guarded. MMODL / IJN: [id number] /
[2017-05-17 19:09] LABS: Glucose,Whole Blood 204 mg/dL (75-99)
[2017-05-17 20:07] LABS: Glucose,Whole Blood 218 mg/dL (75-99)
[2017-05-17 20:54] LABS: Glucose,Whole Blood 211 mg/dL (75-99)
[2017-05-17] MEDS: ATORVASTATIN 40 MG TAB PO SCH (21:45)
[2017-05-17] MEDS: FOLIC ACID 1 MG TAB PO SCH (21:45)
[2017-05-17 22:11] LABS: Glucose,Whole Blood 202 mg/dL (75-99)
[2017-05-17 23:03] LABS: Glucose,Whole Blood 181 mg/dL (75-99)
[2017-05-18 00:08] LABS: Glucose,Whole Blood 177 mg/dL (75-99)
[2017-05-18 01:07] LABS: Glucose,Whole Blood 173 mg/dL (75-99)
[2017-05-18 02:11] LABS: Glucose,Whole Blood 169 mg/dL (75-99)
[2017-05-18] MEDS: PROPOFOL 1,000 MG/100 ML VIAL IV SCH ×4 (02:42→22:32)
[2017-05-18 03:08] LABS: Glucose,Whole Blood 162 mg/dL (75-99)
[2017-05-18 04:14] LABS: Glucose,Whole Blood 150 mg/dL (75-99)
[2017-05-18 04:44] LABS: Calcium 7.7 mg/dL (8.4-10.2); Magnesium 1.9 mg/dL (1.6-2.3); Phosphorous 4.8 mg/dL (2.5-4.5); Potassium 4.5 mmol/L (3.5-5.1)
[2017-05-18 04:56] LABS: CHCM 30.1; HCT 24.4 % (39.0-53.0); HDW 2.56; HGB 7.4 gm/dL (13.0-17.5); Hypochromasia Moderate; Immature Gran Flag Slight; MCH 26.3 pg (25.0-35.0); MCHC 30.4 g/dL (31.0-37.0); MCV 86.8 fL (80.0-100.0); Mean Platelet Volume 8.6; RBC 2.81 m/uL (4.30-5.90); RDW 15.9 % (11.5-15.5); WBC 11.9 k/uL (3.8-10.6); WBC (Perox) 12.22
[2017-05-18 05:09] LABS: Glucose,Whole Blood 147 mg/dL (75-99)
[2017-05-18 05:20] LABS: Add Differential Manual Differential
[2017-05-18 05:23] LABS: Manual Review Performed; Nucleated Red Blood Cells 0 /100 WBC (0-0)
[2017-05-18 05:25] LABS: Myelocytes % 7 %; Total Cells Counted 200
[2017-05-18 05:26] LABS: Basophilic Stippling Present
[2017-05-18] MEDS: CLEVIDIPINE BUTYRATE 25 MG in EMPTY BAG 1 BAG IV SCH ×2 (06:03→15:48)
[2017-05-18 06:08] LABS: Glucose,Whole Blood 145 mg/dL (75-99)
[2017-05-18 07:16] LABS: Glucose,Whole Blood 145 mg/dL (75-99)
--- NOTE | 2017-05-18 07:16 | XR ---
EXAMINATION TYPE: XR chest 1V portable DATE OF EXAM: 05/18/2017 COMPARISON: 05/17/2017 HISTORY: Enteric tube placement TECHNIQUE: Single frontal view of the chest is obtained. FINDINGS: Enteric tube and endotracheal tube are unchanged in position. Multilead left-sided cardiac device is also unchanged. Median sternotomy wires and mediastinal clips from prior CABG are again pr esent with dehiscence of the most inferior wires. Again there is cardiomegaly. Mild pulmonary vascular congestion remains. There is a persistent rounde d confluent opacity abutting the left ventricular border. IMPRESSION: Unchanged mild pulmonary vascular congestion on the basis of congestive heart failure and confluent l eft basilar opacity may may relate to confluent pulmonary edema or focal pneumonia. Follow-up to reso lution is recommended to exclude underlying pulmonary nodule.
[2017-05-18] MEDS: FERROUS SULFATE 325 MG TAB PO SCH ×2 (07:50→17:22)
[2017-05-18] MEDS: CARVEDILOL 12.5 MG TAB PO SCH ×2 (07:51→20:24)
[2017-05-18] MEDS: ASPIRIN 81 MG PO SCH ×2 (07:51→20:24)
[2017-05-18] MEDS: CLOPIDOGREL 75 MG TAB PO SCH (07:52)
[2017-05-18] MEDS: CHLORHEXIDINE GLUCONATE 15 ML CUP MUCOUS MEM SCH ×2 (07:52→20:24)
[2017-05-18] MEDS: hydrALAZINE HCL 25 MG TAB PO SCH ×2 (07:52→20:24)
[2017-05-18] MEDS: ENOXAPARIN 30 MG/0.3 ML SYRINGE SQ SCH (07:52)
[2017-05-18] MEDS: IPRATROPIUM-ALBUTEROL 3 ML NEB INHALATION SCH ×4 (07:52→20:09)
[2017-05-18] MEDS: methylPREDNISolone SOD SUCCI 40 MG/ML 1 ML VIAL IV SCH ×2 (07:53→20:24)
[2017-05-18] MEDS: ISOSORBIDE MONONITRATE ER 30 MG TAB.ER.24H PO SCH (07:53)
[2017-05-18] MEDS: VITAMIN E (DL,TOCOPHERYL ACET) 400 UNIT CAP PO SCH (07:53)
[2017-05-18 08:14] LABS: Glucose,Whole Blood 140 mg/dL (75-99)
[2017-05-18 08:32] LABS: ABG Base Excess -0.6 mmol/L; ABG HCO3 23 mmol/L (21-25); ABG PCO2 38 mmHg (35-45); ABG PH 7.41 (7.35-7.45); ABG PO2 78 mmHg (83-108); ABG TCO2 25 mmol/L (19-24)
[2017-05-18 08:52] LABS: Glucose,Whole Blood 137 mg/dL (75-99)
[2017-05-18 09:56] LABS: Glucose,Whole Blood 182 mg/dL (75-99)
--- NOTE | 2017-05-18 10:42 | P.PN ---
Subjective Patient is seen in follow-up for acute kidney injury on chronic kidney disease. Patient has chronic kidney disease stage IIIB secondary to nephrosclerosis and diabetic kidney disease with baseline creatinine near 2. His creatinine peaked at 5.8 this admission. Patient appeared quite lethargic on May 13 and ABG was suggestive of mixed metabolic and respiratory acidosis. He is currently in intensive care unit requiring ventilator support. He was oliguric but urine output now is 30-50 mL an hour. He is off all vasopressors at this time. He is maintained on tube feeds. He has undergone 2 treatments of hemodialysis so far. Last hemodialysis was on May 15. Creatinine is up to 3.1 today. Vital signs are stable. General: The patient appeared well nourished and normally developed. Intubated. HEENT: Head exam is unremarkable. Neck is without jugular venous distension. LUNGS: Scattered rhonchi. Breath sounds decreased. HEART: Rate and Rhythm are regular. First and second heart sounds normal. No murmurs, rubs or gallops. ABDOMEN: Abdominal exam reveals normal bowel sounds. Non-tender and non- distended. EXTREMITITES: No clubbing, cyanosis, or edema. Objective - Vital Signs Vital signs: Vital Signs Temp 98.6 F 05/18/17 08:00 Pulse 59 L 05/18/17 10:00 Resp 25 H 05/18/17 10:00 BP 189/72 05/14/17 17:10 Pulse Ox 97 05/18/17 10:00 Intake & Output 05/17/17 05/18/17 05/18/17 18:59 06:59 18:59 Intake Total 0717.276 8994.486 785.038 Output Total 723 700 160 Balance 573.682 9063.486 625.038 Weight 94.4 kg 95.7 kg Intake: IV 380 360 220 .9 330 360 120 cefTAZidime 0.5 gm In 50 100 Sodium Chloride 0.9% 50 ml @ 100 mls/hr IVPB DAILY [facility] Rx#:[id number] Intake, IV Titration 272.542 486.486 75.038 Amount Clevidipine Butyrate 25 69.0 59.000 mg In Empty Bag 1 bag @ 1 MG/HR 2 mls/hr IV .Q24H [facility] Rx#:[id number] Insulin Regular 100 unit 103.542 114.248 36.36 In Sodium Chloride 0.9% 100 ml @ Per Protocol IV .Q0M [facility] Rx#:[id number] Propofol 1,000 mg In 100 100 313.238 38.678 ml @ Titrate IV .Q0M [facility] Rx#:[id number] Oral 0 Tube Feeding 950 900 360 Other 60 90 130 Output: Urine 723 700 160 Other: Voiding Method Indwelling Catheter Indwelling Catheter Indwelling Catheter # Voids 3 3 ABP, PAP, CO, CI - Last Documented Arterial Blood Pressure 148/47 - Labs CBC & Chem 7: 05/18/17 04:05 05/18/17 04:05 Labs: Abnormal Lab Results - Last 24 Hours (Table) 05/17/17 05/17/17 05/17/17 Range/Units 11:37 13:14 16:09 WBC (3.8-10.6) k/uL RBC (4.30-5.90) m/uL Hgb (13.0-17.5) gm/dL Hct (39.0-53.0) % MCHC (31.0-37.0) g/dL RDW (11.5-15.5) % Neutrophils # (Manual) (1.3-7.7) k/uL Lymphocytes # (Manual) (1.0-4.8) k/uL Myelocytes # (Manual) (0) k/uL ABG pO2 (83-108) mmHg ABG Total CO2 (19-24) mmol/L Sodium (137-145) mmol/L BUN (9-20) mg/dL Creatinine (0.66-1.25) mg/dL Glucose (74-99) mg/dL POC Glucose (mg/dL) 173 H 181 H 139 H (75-99) mg/dL Calcium (8.4-10.2) mg/dL Phosphorus (2.5-4.5) mg/dL 05/17/17 05/17/17 05/17/17 Range/Units 17:08 19:06 20:04 WBC (3.8-10.6) k/uL RBC (4.30-5.90) m/uL Hgb (13.0-17.5) gm/dL Hct (39.0-53.0) % MCHC (31.0-37.0) g/dL RDW (11.5-15.5) % Neutrophils # (Manual) (1.3-7.7) k/uL Lymphocytes # (Manual) (1.0-4.8) k/uL Myelocytes # (Manual) (0) k/uL ABG pO2 (83-108) mmHg ABG Total CO2 (19-24) mmol/L Sodium (137-145) mmol/L BUN (9-20) mg/dL Creatinine (0.66-1.25) mg/dL Glucose (74-99) mg/dL POC Glucose (mg/dL) 193 H 204 H 218 H (75-99) mg/dL Calcium (8.4-10.2) mg/dL Phosphorus (2.5-4.5) mg/dL 05/17/17 05/17/17 05/17/17 Range/Units 20:53 22:10 23:02 WBC (3.8-10.6) k/uL RBC (4.30-5.90) m/uL Hgb (13.0-17.5) gm/dL Hct (39.0-53.0) % MCHC (31.0-37.0) g/dL RDW (11.5-15.5) % Neutrophils # (Manual) (1.3-7.7) k/uL Lymphocytes # (Manual) (1.0-4.8) k/uL Myelocytes # (Manual) (0) k/uL ABG pO2 (83-108) mmHg ABG Total CO2 (19-24) mmol/L Sodium (137-145) mmol/L BUN (9-20) mg/dL Creatinine (0.66-1.25) mg/dL Glucose (74-99) mg/dL POC Glucose (mg/dL) 211 H 202 H 181 H (75-99) mg/dL Calcium (8.4-10.2) mg/dL Phosphorus (2.5-4.5) mg/dL 05/18/17 05/18/17 05/18/17 Range/Units 00:06 01:06 02:09 WBC (3.8-10.6) k/uL RBC (4.30-5.90) m/uL Hgb (13.0-17.5) gm/dL Hct (39.0-53.0) % MCHC (31.0-37.0) g/dL RDW (11.5-15.5) % Neutrophils # (Manual) (1.3-7.7) k/uL Lymphocytes # (Manual) (1.0-4.8) k/uL Myelocytes # (Manual) (0) k/uL ABG pO2 (83-108) mmHg ABG Total CO2 (19-24) mmol/L Sodium (137-145) mmol/L BUN (9-20) mg/dL Creatinine (0.66-1.25) mg/dL Glucose (74-99) mg/dL POC Glucose (mg/dL) 177 H 173 H 169 H (75-99) mg/dL Calcium (8.4-10.2) mg/dL Phosphorus (2.5-4.5) mg/dL 05/18/17 05/18/17 05/18/17 Range/Units 03:06 04:05 04:05 WBC 11.9 H (3.8-10.6) k/uL RBC 2.81 L (4.30-5.90) m/uL Hgb 7.4 L (13.0-17.5) gm/dL Hct 24.4 L (39.0-53.0) % MCHC 30.4 L (31.0-37.0) g/dL RDW 15.9 H (11.5-15.5) % Neutrophils # (Manual) 10.47 H (1.3-7.7) k/uL Lymphocytes # (Manual) 0.12 L (1.0-4.8) k/uL Myelocytes # (Manual) 0.83 H (0) k/uL ABG pO2 (83-108) mmHg ABG Total CO2 (19-24) mmol/L Sodium 135 L (137-145) mmol/L BUN 102 H* (9-20) mg/dL Creatinine 3.10 H (0.66-1.25) mg/dL Glucose 147 H (74-99) mg/dL POC Glucose (mg/dL) 162 H (75-99) mg/dL Calcium 7.7 L (8.4-10.2) mg/dL Phosphorus 4.8 H (2.5-4.5) mg/dL 05/18/17 05/18/17 05/18/17 Range/Units 04:10 05:05 06:06 WBC (3.8-10.6) k/uL RBC (4.30-5.90) m/uL Hgb (13.0-17.5) gm/dL Hct (39.0-53.0) % MCHC (31.0-37.0) g/dL RDW (11.5-15.5) % Neutrophils # (Manual) (1.3-7.7) k/uL Lymphocytes # (Manual) (1.0-4.8) k/uL Myelocytes # (Manual) (0) k/uL ABG pO2 (83-108) mmHg ABG Total CO2 (19-24) mmol/L Sodium (137-145) mmol/L BUN (9-20) mg/dL Creatinine (0.66-1.25) mg/dL Glucose (74-99) mg/dL POC Glucose (mg/dL) 150 H 147 H 145 H (75-99) mg/dL Calcium (8.4-10.2) mg/dL Phosphorus (2.5-4.5) mg/dL 05/18/17 05/18/17 05/18/17 Range/Units 07:13 07:26 08:12 WBC (3.8-10.6) k/uL RBC (4.30-5.90) m/uL Hgb (13.0-17.5) gm/dL Hct (39.0-53.0) % MCHC (31.0-37.0) g/dL RDW (11.5-15.5) % Neutrophils # (Manual) (1.3-7.7) k/uL Lymphocytes # (Manual) (1.0-4.8) k/uL Myelocytes # (Manual) (0) k/uL ABG pO2 78 L (83-108) mmHg ABG Total CO2 25 H (19-24) mmol/L Sodium (137-145) mmol/L BUN (9-20) mg/dL Creatinine (0.66-1.25) mg/dL Glucose (74-99) mg/dL POC Glucose (mg/dL) 145 H 140 H (75-99) mg/dL Calcium (8.4-10.2) mg/dL Phosphorus (2.5-4.5) mg/dL 05/18/17 05/18/17 Range/Units 08:51 09:55 WBC (3.8-10.6) k/uL RBC (4.30-5.90) m/uL Hgb (13.0-17.5) gm/dL Hct (39.0-53.0) % MCHC (31.0-37.0) g/dL RDW (11.5-15.5) % Neutrophils # (Manual) (1.3-7.7) k/uL Lymphocytes # (Manual) (1.0-4.8) k/uL Myelocytes # (Manual) (0) k/uL ABG pO2 (83-108) mmHg ABG Total CO2 (19-24) mmol/L Sodium (137-145) mmol/L BUN (9-20) mg/dL Creatinine (0.66-1.25) mg/dL Glucose (74-99) mg/dL POC Glucose (mg/dL) 137 H 182 H (75-99) mg/dL Calcium (8.4-10.2) mg/dL Phosphorus (2.5-4.5) mg/dL Assessment and Plan Plan: Assessment: #1. Acute kidney injury secondary to ATN secondary to pneumonia and further worsened with the use of diuretics and MIC inhibitor. Patient was also hypotensive requiring vasopressors. Postvoid residual was 170. Creatinine peaked at 5.8 this admission. He was started on hemodialysis and has undergone 2 treatments so far - last HD on 05/15/17. Creatinine today is elevated at 3.1. BUN elevated which is partially related to IV steroids. #2. Chronic kidney disease stage IIIB secondary to nephrosclerosis and diabetic kidney disease with baseline creatinine near 2. #3. Hyperkalemia secondary to acute kidney injury and metabolic acidosis. Resolved. #4. Metabolic acidosis secondary to acute kidney injury. Respiratory acidosis present as well. Improved. #5. Pneumonia, maintain on antibiotics. #6. Anemia with severe iron deficiency, status post 3 doses of IV iron. Monitor hemoglobin. May require blood transition. #7. Hyperphosphatemia secondary to acute kidney injury. Improved postdialysis. Plan: Hep-Lock IV fluids. Chest x-ray suggestive of vascular congestion as well as pneumonia - third treatment of hemodialysis today with goal 1-2 L ultrafiltration. Wean FiO2. Possible extubation today. Maintain tube feeds. Maintain De [place] catheter for accurate I's and os. Wean cleviprex. Continue with current antihypertensives.
[2017-05-18 12:29] LABS: Glucose,Whole Blood 146 mg/dL (75-99)
[2017-05-18] MEDS: INSULIN REGULAR 100 UNIT in SODIUM CHLORIDE 0.9% 100 ML IV SCH (12:35)
--- NOTE | 2017-05-18 13:32 | CT ---
EXAMINATION TYPE: CT brain wo con DATE OF EXAM: 05/18/2017 COMPARISON: NONE HISTORY: Rule of stroke CT DLP: 995.0 mGycm Automated exposure control for dose reduction was used. FINDINGS: Mild to moderate generalized degenerative change. Faint periventricular low attenuation is nonspecifi c. Calvarium intact. No midline shift or mass effect. Bilateral findings of mastoiditis and there is evidence of sinusitis. Atherosclerotic change of the vasculature noted. IMPRESSION: 1. NONSPECIFIC WHITE MATTER CHANGES. IF THERE IS CONCERN FOR ACUTE STROKE CORRELATE WITH MRI. 2. NO ACUTE HEMORRHAGE. 3. CHRONIC SINUSITIS AND MASTOIDITIS.
[2017-05-18 13:35] LABS: Glucose,Whole Blood 146 mg/dL (75-99)
--- NOTE | 2017-05-18 13:46 | P.PN ---
Subjective Progress Note Date: 05/18/17 Principal diagnosis: Acute hypoxic respiratory failure secondary to pneumonia, congestive heart failure, and underlying COPD. A 67-year-old male patient who is being seen in consultation upon the request of Dr. Jerez for worsening shortness of breath. At the time of my evaluation , the patient was noted to be quite lethargic and somnolent. He was arousable. He had increased cough and congestion. He had diminished breath sounds throughout his lung pearson bilaterally. He was placed on oxygen at 3 L/m nasal cannula. A blood gas was ordered and it showed a pH of 7.2 with a pCO2 of 50 and a pO2 of 78 at 3 L/m nasal cannula. The patient was also found to be in acute on top of chronic renal failure with an underlying metabolic acidosis and acute hyperkalemia with a potassium level of 5.9. For that reason I made recommendations for this patient to be transferred to the intensive care unit. I was also told that the patient was having hypoglycemic events and he was placed on D5 half-normal saline at rate of 70 and an hour. This patient has history of COPD. The patient is an ex-smoker. His undergone coronary artery bypass surgery 2 years back and [facility] for underlying coronary artery disease. He is also known to have ischemic artery myopathy and has had an AICD in place. He suffers from chronic renal failure. He has hypertension and hyperlipidemia and diabetes mellitus. He presented to the hospital because of increased cough congestion and worsening shortness of breath. No major swelling in lower extremities. No orthopnea. No peripheral edema. His white cell count was nonelevated. His hemoglobin was low and the patient has chronic anemia with a hemoglobin of 8.3-8.4 and he was given IV iron. He was being diuresis with IV Lasix and diuretics got placed on hold as the patient developed an acute on top of chronic renal failure. The patient is also covered with broad-spectrum antibiotics and is currently on IV Fortaz. On 05/14/2017 I'm seeing this patient for a follow-up. The patient is quite lethargic and somnolent and he still continues to have significant limitations level of consciousness. Overnight he was also agitated and confused and he had required a dose of Ativan 1 mg which controlled his agitation. Overnight he was also kept on a BiPAP at a pressure of 12/5 cm of water and FiO2 of 40%. He continues to be oliguric. His renal function is progressively getting worse in his creatinine is up to 5.8. He was started on a bicarb drip yesterday and his serum bicarb is up to 17 and he has an anion gap of 17. The patient's chest x- ray from today showing multilobar pneumonia. A CAT scan of the chest was also done yesterday that showed bilateral pneumonia with airspace disease in the left upper lobe and some minimal airspace disease present in the right lung base. He has a weak cough. He is having difficulties in breathing and up his rest or secretions. His was unable to swallow today due to his marked diminishment in level of consciousness. And based on all this, I made decision to intubate the patient and place him on a mechanical ventilator. I also contacted nephrology and the patient is being considered for hemodialysis today. He is diabetic. His blood sugars have been within the hypoglycemic range and his most recent blood sugar is 163. He remains on D5 with 3 A of bicarb at the rate of 75 mL an hour. On 05/15/2017 the patient is being seen in follow-up in the intensive care unit. As mentioned, the patient was intubated and placed on a mechanical ventilator. This morning his well sedated and is calm and comfortable on Diprivan running at 50 mics. He is also on assist control mode of ventilation at the rate of 24, tidal volume of 500, FiO2 of 60% and a PEEP of 5. Chest x- ray from this morning shows adequate positioning of the orotracheal and orogastric tube. There is some atelectatic changes and left lung base. Overall the aeration is improved. The patient had a bronchoscopy yesterday and the bronchial lavage has been sent for microbial analysis and the results are still pending for now. Meanwhile he is on a broad-spectrum antibiotic coverage including a combination of cefepime, Levaquin and vancomycin. No fever. No hypotension. No chills. The patient is producing diminished urine output and he is still in acute kidney injury. A dialysis catheter was inserted yesterday and received his first session of dialysis yesterday. No volume was taken off and the patient had strict dialysis. The patient is improving in terms of his metabolic derangements. In fact on today's blood gases having a component of acute Minnie alkalosis with a pH of 7.5 and a pCO2 of 31 and pO2 of 98. As for his serum bicarb, there is up to 22 and the creatinine is down to 4.12. The patient is on a sliding scale insulin coverage for blood sugar control. He was having issues with elevated blood pressure post intubation. Currently is on a clevidipine running at 1 mg an hour and his blood pressure is under good control. On 05/16/2017 the patient is being seen in follow-up in the intensive care unit. The patient remains intubated on a mechanical ventilator. The morning vent setting showed an assist-control mode at the rate of 20, tidal volume of 450, FiO2 of 60% and PEEP of 5. Morning blood gases showed a pH of 7.45 with a pCO2 of 36 and pO2 46. Based on this the FiO2 was gradually wean down to 50% and hopefully down to 40%. Chest x-ray shows worsening of the right the pulmonary infiltrates especially on the left. ET tube is in a good location. Bronchoscopy was done and the bronchioloalveolar lavage has not shown any microbial growth. Meanwhile the patient remains on a broad-spectrum antibiotics and the patient is currently on a combination of cefepime and Levaquin and vancomycin. Hemodynamically he is doing well. He is on no pressors. In fact he was requiring clevidipine drip for blood pressure control. His blood pressure is controlled on 2 mg of clevidipine drip. He underwent dialysis yesterday without ultrafiltration. His creatinine is down to 2.85 and the patient is producing urine and order of 50-75 mL an hour. His urine output is improved. I'm not sure if he is going to require dialysis tomorrow. Discussed the case with the nephrology. Would like to give him a dose of Lasix to augment his urine output and he will be receiving 60 mg IV push. The patient is still sedated on Diprivan. Diprivan is running at 50 mics. He can still wake himself up through the sedation. He is moving all 4 extremities. His sedation has been titrated on Diprivan at times at is being brought up to 60 mics. The patient's cardiac ventricular paced. He is tolerating his tube feeds. He is on insulin drip running at 5 units an hour. He is still on a bronchodilators and systemic steroids for his COPD exacerbation. No other significant events overnight. Reevaluated today on 05/17/2017, patient remains on mechanical ventilation, presently a tidal volume of 450 assist control rate of 20 FiO2 is 45% and PEEP is 5. ABG showed a pO2 of 93 pCO2 of 38 pH of 7.41. Chest x-ray was reviewed, there is evidence of diffuse interstitial opacities and airspace disease bilaterally more so in the left perihilar area I believe the findings are mostly findings of pneumonia and congestive heart failure. His bronchoscopy has been nondiagnostic. Patient remains on broad-spectrum antibiotics in the form of cefepime and Levaquin as well as vancomycin. Patient is hemodynamically stable, not requiring any drips, he is however on clevidipine for elevated blood pressure. CBC showed normal WBC count hemoglobin is 7.2 BUN is 81 creatinine 2.90. Urine output seems to be adequate. And improving. Patient is not requiring dialysis at this point. Patient remains on propofol for sedation. He is also on nutritional support via enteral feeding. Remains on bronchodilators, remains on insulin drip. Reevaluated today on 05/18/2017, patient remains on mechanical ventilation, remains on the same ventilator settings as noted above. Patient was taken off sedation, but does not seem to be appropriate, confused, does not seem to follow any instructions. Patient does not seem to be in distress, however he remains on assist control mode of mechanical ventilation, and his chest x-ray continues to show air space disease mostly in the left perihilar area and left lower lobe. I believe the patient has ongoing pneumonia although his bronchoscopy was nondiagnostic. His congestive heart failure seems to have improved. Patient remains on clevidipine for elevated blood pressure. And that is being adjusted by cardiology on the case. WBC count is 11.9 hemoglobin is 7.4. ABG showed a pO2 of 78 pCO2 of 38 pH of 7.41 renal profile remains abnormal with BUN of 102 creatinine of 3.10. is at bedside, and I discussed his condition with the , also recommended CT of the brain because of his mental status, and it showed no specific abnormality except for chronic sinusitis and mastoiditis. Objective - Vital Signs Vital signs: Vital Signs Temp 98.8 F 05/18/17 12:00 Pulse 60 05/18/17 12:00 Resp 25 H 05/18/17 12:00 BP 189/72 05/14/17 17:10 Pulse Ox 98 05/18/17 12:00 Intake & Output 05/17/17 05/18/17 05/18/17 18:59 06:59 18:59 Intake Total 4783.299 8444.486 962.742 Output Total 723 700 260 Balance 954.585 9013.486 702.742 Weight 94.4 kg 95.7 kg Intake: IV 380 360 280 .9 330 360 180 cefTAZidime 0.5 gm In 50 100 Sodium Chloride 0.9% 50 ml @ 100 mls/hr IVPB DAILY AGUSTIN Rx#:[id number] Intake, IV Titration 272.542 486.486 102.742 Amount Clevidipine Butyrate 25 69.0 59.000 mg In Empty Bag 1 bag @ 1 MG/HR 2 mls/hr IV .Q24H AGUSTIN Rx#:[id number] Insulin Regular 100 unit 103.542 114.248 54.977 In Sodium Chloride 0.9% 100 ml @ Per Protocol IV .Q0M AGUSTIN Rx#:[id number] Propofol 1,000 mg In 100 100 313.238 47.765 ml @ Titrate IV .Q0M AGUSTIN Rx#:[id number] Oral 0 Tube Feeding 950 900 450 Other 60 90 130 Output: Urine 723 700 260 Other: Voiding Method Indwelling Catheter Indwelling Catheter Indwelling Catheter # Voids 3 3 ABP, PAP, CO, CI - Last Documented Arterial Blood Pressure 156/47 - Exam Physical exam: Revealed a 67-year-old white male in no distress. On mechanical ventilation. Patient is well sedated, intubated on a mechanical ventilator. Orogastric and orotracheal tube are both in place. He is calm and comfortable. neck is short and thick and supple and there is no significant neck veins. No JVDs. No goiter.Head exam was generally normal. There was no scleral icterus or corneal arcus. Mucous membranes were moist. Lungs sounds are diminished bilaterally otherwise clear in breast on that equal and symmetrical. Cardiac exam revealed the PMI to be normally situated and sized. The rhythm was regular and no extrasystoles were noted during several minutes of auscultation. The first and second heart sounds were normal and physiologic splitting of the second heart sound was noted. There were no murmurs, rubs, clicks, or gallops. Abdominal exam revealed normal bowel sounds. The abdomen was soft, non-tender, and without masses, organomegaly, or appreciable enlargement of the abdominal aorta. Patient is obese and organs cannot be accurately palpated on today's evaluation. Examination of the extremities revealed easily palpable radial, femoral and pedal pulses. There was no cyanosis, clubbing or edema. Neurologically the patient is awake, but does not follow any instructions, does not squeeze hands, does not wiggle toes, but he is able to move on his own , but does not follow instructions even simple ones. Examination of the skin revealed no evidence of significant rashes, suspicious appearing nevi or other concerning lesions. Psychiatric: Blunted affect, poor mental status examination. - Labs CBC & Chem 7: 05/18/17 04:05 05/18/17 04:05 Labs: Abnormal Lab Results - Last 24 Hours (Table) 05/17/17 05/17/17 05/17/17 Range/Units 16:09 17:08 19:06 WBC (3.8-10.6) k/uL RBC (4.30-5.90) m/uL Hgb (13.0-17.5) gm/dL Hct (39.0-53.0) % MCHC (31.0-37.0) g/dL RDW (11.5-15.5) % Neutrophils # (Manual) (1.3-7.7) k/uL Lymphocytes # (Manual) (1.0-4.8) k/uL Myelocytes # (Manual) (0) k/uL ABG pO2 (83-108) mmHg ABG Total CO2 (19-24) mmol/L Sodium (137-145) mmol/L BUN (9-20) mg/dL Creatinine (0.66-1.25) mg/dL Glucose (74-99) mg/dL POC Glucose (mg/dL) 139 H 193 H 204 H (75-99) mg/dL Calcium (8.4-10.2) mg/dL Phosphorus (2.5-4.5) mg/dL 05/17/17 05/17/17 05/17/17 Range/Units 20:04 20:53 22:10 WBC (3.8-10.6) k/uL RBC (4.30-5.90) m/uL Hgb (13.0-17.5) gm/dL Hct (39.0-53.0) % MCHC (31.0-37.0) g/dL RDW (11.5-15.5) % Neutrophils # (Manual) (1.3-7.7) k/uL Lymphocytes # (Manual) (1.0-4.8) k/uL Myelocytes # (Manual) (0) k/uL ABG pO2 (83-108) mmHg ABG Total CO2 (19-24) mmol/L Sodium (137-145) mmol/L BUN (9-20) mg/dL Creatinine (0.66-1.25) mg/dL Glucose (74-99) mg/dL POC Glucose (mg/dL) 218 H 211 H 202 H (75-99) mg/dL Calcium (8.4-10.2) mg/dL Phosphorus (2.5-4.5) mg/dL 05/17/17 05/18/17 05/18/17 Range/Units 23:02 00:06 01:06 WBC (3.8-10.6) k/uL RBC (4.30-5.90) m/uL Hgb (13.0-17.5) gm/dL Hct (39.0-53.0) % MCHC (31.0-37.0) g/dL RDW (11.5-15.5) % Neutrophils # (Manual) (1.3-7.7) k/uL Lymphocytes # (Manual) (1.0-4.8) k/uL Myelocytes # (Manual) (0) k/uL ABG pO2 (83-108) mmHg ABG Total CO2 (19-24) mmol/L Sodium (137-145) mmol/L BUN (9-20) mg/dL Creatinine (0.66-1.25) mg/dL Glucose (74-99) mg/dL POC Glucose (mg/dL) 181 H 177 H 173 H (75-99) mg/dL Calcium (8.4-10.2) mg/dL Phosphorus (2.5-4.5) mg/dL 05/18/17 05/18/17 05/18/17 Range/Units 02:09 03:06 04:05 WBC (3.8-10.6) k/uL RBC (4.30-5.90) m/uL Hgb (13.0-17.5) gm/dL Hct (39.0-53.0) % MCHC (31.0-37.0) g/dL RDW (11.5-15.5) % Neutrophils # (Manual) (1.3-7.7) k/uL Lymphocytes # (Manual) (1.0-4.8) k/uL Myelocytes # (Manual) (0) k/uL ABG pO2 (83-108) mmHg ABG Total CO2 (19-24) mmol/L Sodium 135 L (137-145) mmol/L BUN 102 H* (9-20) mg/dL Creatinine 3.10 H (0.66-1.25) mg/dL Glucose 147 H (74-99) mg/dL POC Glucose (mg/dL) 169 H 162 H (75-99) mg/dL Calcium 7.7 L (8.4-10.2) mg/dL Phosphorus 4.8 H (2.5-4.5) mg/dL 05/18/17 05/18/17 05/18/17 Range/Units 04:05 04:10 05:05 WBC 11.9 H (3.8-10.6) k/uL RBC 2.81 L (4.30-5.90) m/uL Hgb 7.4 L (13.0-17.5) gm/dL Hct 24.4 L (39.0-53.0) % MCHC 30.4 L (31.0-37.0) g/dL RDW 15.9 H (11.5-15.5) % Neutrophils # (Manual) 10.47 H (1.3-7.7) k/uL Lymphocytes # (Manual) 0.12 L (1.0-4.8) k/uL Myelocytes # (Manual) 0.83 H (0) k/uL ABG pO2 (83-108) mmHg ABG Total CO2 (19-24) mmol/L Sodium (137-145) mmol/L BUN (9-20) mg/dL Creatinine (0.66-1.25) mg/dL Glucose (74-99) mg/dL POC Glucose (mg/dL) 150 H 147 H (75-99) mg/dL Calcium (8.4-10.2) mg/dL Phosphorus (2.5-4.5) mg/dL 05/18/17 05/18/17 05/18/17 Range/Units 06:06 07:13 07:26 WBC (3.8-10.6) k/uL RBC (4.30-5.90) m/uL Hgb (13.0-17.5) gm/dL Hct (39.0-53.0) % MCHC (31.0-37.0) g/dL RDW (11.5-15.5) % Neutrophils # (Manual) (1.3-7.7) k/uL Lymphocytes # (Manual) (1.0-4.8) k/uL Myelocytes # (Manual) (0) k/uL ABG pO2 78 L (83-108) mmHg ABG Total CO2 25 H (19-24) mmol/L Sodium (137-145) mmol/L BUN (9-20) mg/dL Creatinine (0.66-1.25) mg/dL Glucose (74-99) mg/dL POC Glucose (mg/dL) 145 H 145 H (75-99) mg/dL Calcium (8.4-10.2) mg/dL Phosphorus (2.5-4.5) mg/dL 05/18/17 05/18/17 05/18/17 Range/Units 08:12 08:51 09:55 WBC (3.8-10.6) k/uL RBC (4.30-5.90) m/uL Hgb (13.0-17.5) gm/dL Hct (39.0-53.0) % MCHC (31.0-37.0) g/dL RDW (11.5-15.5) % Neutrophils # (Manual) (1.3-7.7) k/uL Lymphocytes # (Manual) (1.0-4.8) k/uL Myelocytes # (Manual) (0) k/uL ABG pO2 (83-108) mmHg ABG Total CO2 (19-24) mmol/L Sodium (137-145) mmol/L BUN (9-20) mg/dL Creatinine (0.66-1.25) mg/dL Glucose (74-99) mg/dL POC Glucose (mg/dL) 140 H 137 H 182 H (75-99) mg/dL Calcium (8.4-10.2) mg/dL Phosphorus (2.5-4.5) mg/dL 05/18/17 05/18/17 Range/Units 12:28 13:34 WBC (3.8-10.6) k/uL RBC (4.30-5.90) m/uL Hgb (13.0-17.5) gm/dL Hct (39.0-53.0) % MCHC (31.0-37.0) g/dL RDW (11.5-15.5) % Neutrophils # (Manual) (1.3-7.7) k/uL Lymphocytes # (Manual) (1.0-4.8) k/uL Myelocytes # (Manual) (0) k/uL ABG pO2 (83-108) mmHg ABG Total CO2 (19-24) mmol/L Sodium (137-145) mmol/L BUN (9-20) mg/dL Creatinine (0.66-1.25) mg/dL Glucose (74-99) mg/dL POC Glucose (mg/dL) 146 H 146 H (75-99) mg/dL Calcium (8.4-10.2) mg/dL Phosphorus (2.5-4.5) mg/dL Assessment and Plan Plan: 1 bilateral pneumonia worse on the left with secondary acute hypoxic respiratory failure. Patient is currently intubated on a mechanical ventilator. The bronchoscopy and bronchial lavage showed no microbial growth and the patient remains on a combination of cefepime and Levaquin and vancomycin. Awaiting final cultures from the bronchioloalveolar lavage. Meanwhile, continue the antibiotics. Continue the vent support. Drop down the FiO2 down to 45 % Sedation holiday. No plans for extubation today. 2 acute COPD exacerbation secondary to left lung pneumonia, improving and the steroid dose can be tapered further. 3 acute hypertensive reaction currently on clevidipine drip for blood pressure control, currently on 2 mg of clevidipine drip for tighter blood pressure control 4 diastolic congestion heart failure, ischemic cardiomyopathy and the most recent echocardiogram shows a low normal ejection fraction with an EF around 50- 55%, severely dilated LA, severe pulmonary hypertension with a PA pressure of 68 5 coronary artery disease with previous coronary artery bypass surgery 6 history of cardiac block status post pacemaker insertion/AICD insertion 7 acute on top of chronic renal failure, likely secondary to diuresis. The patient overall had 2 sessions of hemodialysis. His urine output is improved. His acid base balance is also improved. He had severe metabolic acidosis which got corrected. He is producing better urine output. Nephrology is on the case. He has some bleeding at the dialysis catheter insertion site in his right groin. This was monitored very closely. Is on a combination of aspirin and Plavix. His correlation profile is within normal limits. Unsure if he is given needs some more dialysis within the next 24 hours. He'll be monitored very closely. 8 chronic renal failure with stage III to 4 chronic kidney disease 9 diabetes mellitus, currently in size Blood sugar control 10 hypertension 11 hyperlipidemia. 12 hyperkalemia, improved 15 peripheral vascular disease 14 previous history of GI bleed 15 chronic iron deficiency 16 metabolic acidosis currently improved 17 enteral feeding for nutritional support via tube feeds 18 bleeding from catheter insertion site in the right femoral vein, currently inactive 19 anemia where the patient's hemoglobin is down to 7.3. Recommendation: Continue present supportive care measures, patient is not ready for weaning at this point specially with his mental status as it is, hence I recommended CT of the brain which was done and there was no evidence of acute process, no CVA, no bleeding, patient will be kept on mechanical ventilation, we will address daily weaning parameters, and we'll assess mental status on a daily basis. was made aware of his condition, she is well aware that he is critically ill. We'll continue to follow closely. Time with Patient: 35 minutes Time with Patient: Greater than 30
[2017-05-18 15:02] LABS: Glucose,Whole Blood 111 mg/dL (75-99)
[2017-05-18 15:43] LABS: Glucose,Whole Blood 117 mg/dL (75-99)
--- NOTE | 2017-05-18 16:35 | P.PN ---
Progress Note - Text Progress Note Date: 05/18/17 DATE OF SERVICE: 05/18/2017 PRESENTING COMPLAINT: shortness of breath HISTORY OF PRESENT ILLNESS: 67-year-old male presented with increasing edema decreased appetite feeling run down and shortness of breath. INTERVAL HISTORY: 05/18/2017 patient seen in follow-up in the ICU, currently intubated, in the middle of an SBT, sedation holiday, does not seem to be able to follow any instructions. No plans for extubation today. current drips include tube feeding at 60 mL an hour , clevidipine, insulin drip, titrate to effect, propofol, invasive lines include [place] catheter peripheral IVs. Ventilator settings before meals, FiO2 45%, PEEP of 5 rate of 20. REVIEW OF SYSTEMS: unable to perform due to patient condition. CURRENT MEDICATIONS [place], aspirin, Lipitor, Coreg, ceftazidime IV piggyback,cleviprex, Plavix, Lovenox, glipizide 10 mg by mouth twice a day,hydralazine 25 mg by mouth twice a day insulin drip, levofloxacin, Ativan, Solu-Medrol 40 mg IV every 12 hours, Protonix, propofol. PHYSICAL EXAM VITAL SIGNS: Temperature 98.8, pulse 60, respiratory rate 25, blood pressure 156/47, oxygen saturation 98% on FiO2 of 45% GENERAL APPEARANCE: . Lying in bed, Intubated, sedation holiday, appears uncomfortable, EYES: Pupils equal. Conjunctiva normal. NECK: JVD unable to assess Mass not palpable. MOUTH/NOSE: ET tube in place, NG tube in place RESPIRATORY: mechanical ventilation in place,Respiratory effort normal. Lungs diminished to auscultation. Coughing up a lot of clear secretions CARDIOVASCULAR: First and second sounds normal. Generalized edema ABDOMEN: Soft. Liver and spleen not palpable. No tenderness. No mass palpable. PSYCHIATRY: Unable to assess given the patient condition INVESTIGATIONS: White blood cell count 11.9, hemoglobin 7.4, sodium 135, BUN 102, creatinine 3.10, Accu-Cheks noted ABG: PO2 of 78, pCO2 of 38, pH 7.41 chest x-ray: Unchanged mild pulmonary vascular congestion on the basis of congestive heart failure and confluent left basilar opacity. ASSESSMENT: -Bilateral pneumonia, suspect gram-negative organism causing acute hypoxic respiratory failure, on ventilator support. -Status post bronchoscopy. -Acute chronic obstructive pulmonary disease exacerbation. -Essential hypertension with urgency and clevidipine drip. -Acute on chronic congestive heart failure probably systolic and diastolic dysfunction ejection fraction around 50%. -Severe secondary pulmonary hypertension secondary to chronic obstructive pulmonary disease. -Coronary artery disease with prior history of coronary artery bypass grafting. -AICD with pacemaker in place. -acute renal failure multifactorial probably acute tubular necrosis now hemodialysis dependent. -Chronic kidney disease probably hypertensive nephrosclerosis stage 4 from diabetic nephropathy and hypertensive nephrosclerosis, worsening -Hyperlipidemia. -Hyperkalemia, resolved -Peripheral arterial disease -Metabolic acidosis, improving PLAN: Weaning Cleviprex as patient can tolerate, dialysis scheduled for today with 1- 2 L of ultrafiltration per nephrology.antibiotics, bronchodilators to continue, will continue to evaluate daily patient's readiness for extubation. We will follow closely [employer] statement: Patient was seen and examined by nurse practitioner Perri Fernández and all elements of the case discussed with attending Dr. Jerez
[2017-05-18 16:38] LABS: Glucose,Whole Blood 127 mg/dL (75-99)
[2017-05-18] MEDS ORDERED: HEPARIN SODIUM,PORCINE 5,000 UNIT/ML 1 ML VIAL ONE (16:45)
[2017-05-18] MEDS: LEVOFLOXACIN 500MG-D5W PMX 500 MG in DEXTROSE/WATER 1 100ML.BAG IVPB SCH (17:22)
[2017-05-18 17:42] LABS: Glucose,Whole Blood 174 mg/dL (75-99)
[2017-05-18] MEDS ORDERED: VANCOMYCIN 1,500 MG in SODIUM CHLORIDE 0.9% 250 ML IVPB ONE (18:00)
[2017-05-18 19:12] LABS: Glucose,Whole Blood 178 mg/dL (75-99)
[2017-05-18 20:09] LABS: Glucose,Whole Blood 190 mg/dL (75-99)
[2017-05-18] MEDS: FOLIC ACID 1 MG TAB PO SCH (20:24)
[2017-05-18] MEDS: ATORVASTATIN 40 MG TAB PO SCH (20:24)
[2017-05-18 21:03] LABS: Glucose,Whole Blood 173 mg/dL (75-99)
--- NOTE | 2017-05-18 21:18 | PN ---
PROGRESS NOTE DATE OF SERVICE: 05/18/2017. ATTENDING NOTE: This patient was seen and examined by me. I discussed with my nurse practitioner, Ms. Fernández. Patient remains in the ICU, intubated. Patient is getting tube feeding, on IV insulin, Diprivan and clevidipine. Does respond. EXAMINATION: Afebrile. On the ventilator, FiO2 of 45%. LUNGS: Decreased breath sounds. HEART: Sounds irregular. White count 11.9, hemoglobin 7.4. ASSESSMENT: Multiple medical problems, including COPD, pneumonia congestive heart failure. PLAN: Probably ultrafiltration today. Continue with antibiotics. Prognosis remains guarded. Follow. MMODL / IJN: [id number] /
[2017-05-18 22:00] LABS: Glucose,Whole Blood 160 mg/dL (75-99)
[2017-05-18 23:00] LABS: Glucose,Whole Blood 145 mg/dL (75-99)
[2017-05-19 00:11] LABS: Glucose,Whole Blood 151 mg/dL (75-99)
[2017-05-19 01:07] LABS: Glucose,Whole Blood 150 mg/dL (75-99)
[2017-05-19] MEDS: INSULIN REGULAR 100 UNIT in SODIUM CHLORIDE 0.9% 100 ML IV SCH ×2 (01:45→23:09)
[2017-05-19] MEDS: PROPOFOL 1,000 MG/100 ML VIAL IV SCH ×2 (02:07→05:53)
[2017-05-19 02:37] LABS: Glucose,Whole Blood 155 mg/dL (75-99)
[2017-05-19] MEDS: CLEVIDIPINE BUTYRATE 25 MG in EMPTY BAG 1 BAG IV SCH ×2 (02:39→22:18)
[2017-05-19 04:44] LABS: Glucose,Whole Blood 158 mg/dL (75-99)
[2017-05-19 05:00] LABS: Glucose,Whole Blood 173 mg/dL (75-99)
[2017-05-19 06:01] LABS: Calcium 7.9 mg/dL (8.4-10.2); Magnesium 1.8 mg/dL (1.6-2.3); Potassium 4.5 mmol/L (3.5-5.1)
[2017-05-19 06:19] LABS: Glucose,Whole Blood 160 mg/dL (75-99)
[2017-05-19 06:22] LABS: Anisocytosis Slight; CH 25.9; CHCM 29.8; HCT 25.1 % (39.0-53.0); HGB 7.6 gm/dL (13.0-17.5); Hypochromasia Marked; Immature Gran Flag Marked; MCH 26.4 pg (25.0-35.0); MCHC 30.3 g/dL (31.0-37.0); MCV 87.1 fL (80.0-100.0); Mean Platelet Volume 8.5; RBC 2.88 m/uL (4.30-5.90); RDW 16.1 % (11.5-15.5); WBC 18.2 k/uL (3.8-10.6); WBC (Perox) 17.63
[2017-05-19 06:28] LABS: Add Differential Manual Differential
[2017-05-19 06:40] LABS: Band Neutrophils % 15 %; Metamyelocytes % 5 %; Myelocytes % 1 %; Nucleated Red Blood Cells 0 /100 WBC (0-0); Total Cells Counted 200
[2017-05-19 06:41] LABS: Large Platelets Present
[2017-05-19 06:51] LABS: Polychromasia Present
[2017-05-19 07:04] LABS: Glucose,Whole Blood 160 mg/dL (75-99)
--- NOTE | 2017-05-19 07:48 | XR ---
EXAMINATION TYPE: XR chest 1V portable DATE OF EXAM: 05/19/2017 COMPARISON: 05/20/2017 HISTORY: Ventilatory dependent respiratory failure TECHNIQUE: Single frontal view of the chest is obtained. FINDINGS: Similar to the prior with focal opacity at the left ventricular border, rounded in morphol ogy. Cardiomegaly and mild pulmonary vascular congestion unchanged. There is blunting of the left cos tophrenic angle which relates to trace pleural effusion. Enteric tube and endotracheal tube are uncha nged. Multilead left-sided cardiac device is also some with lead placement unchanged. IMPRESSION: Similar left basilar consolidation, mild pulmonary vascular congestion and cardiomegaly likely relate to decompensated congestive heart failure. Left basilar consolidation may relate to foc al confluent pulmonary edema, or airspace disease. Follow-up to resolution.
[2017-05-19] MEDS: CLOPIDOGREL 75 MG TAB PO SCH (07:55)
[2017-05-19] MEDS: ENOXAPARIN 30 MG/0.3 ML SYRINGE SQ SCH (07:55)
[2017-05-19] MEDS: FERROUS SULFATE 325 MG TAB PO SCH ×2 (07:55→16:57)
[2017-05-19] MEDS: CARVEDILOL 12.5 MG TAB PO SCH ×2 (07:55→20:28)
[2017-05-19] MEDS: ASPIRIN 81 MG PO SCH ×2 (07:55→20:28)
[2017-05-19] MEDS: CHLORHEXIDINE GLUCONATE 15 ML CUP MUCOUS MEM SCH (07:55)
[2017-05-19] MEDS: VITAMIN E (DL,TOCOPHERYL ACET) 400 UNIT CAP PO SCH (07:56)
[2017-05-19] MEDS: methylPREDNISolone SOD SUCCI 40 MG/ML 1 ML VIAL IV SCH ×2 (07:56→20:29)
[2017-05-19] MEDS: hydrALAZINE HCL 25 MG TAB PO SCH ×2 (07:56→20:29)
[2017-05-19] MEDS: ISOSORBIDE MONONITRATE ER 30 MG TAB.ER.24H PO SCH (07:56)
[2017-05-19] MEDS: IPRATROPIUM-ALBUTEROL 3 ML NEB INHALATION SCH ×4 (08:01→20:07)
[2017-05-19 08:07] LABS: Glucose,Whole Blood 154 mg/dL (75-99)
[2017-05-19 08:38] LABS: ABG Base Excess 1.1 mmol/L; ABG HCO3 25 mmol/L (21-25); ABG PCO2 38 mmHg (35-45); ABG PH 7.43 (7.35-7.45); ABG PO2 83 mmHg (83-108); ABG TCO2 26 mmol/L (19-24)
[2017-05-19 08:39] LABS: ABG Oxygen Saturation 96.5 % (94-97)
[2017-05-19 10:06] LABS: Glucose,Whole Blood 112 mg/dL (75-99)
[2017-05-19] MEDS ORDERED: FUROSEMIDE 10 MG/ML 10 ML VIAL IV STA (10:23)
--- NOTE | 2017-05-19 10:35 | P.PN ---
Subjective Patient is seen in follow-up for acute kidney injury on chronic kidney disease. Patient has chronic kidney disease stage IIIB secondary to nephrosclerosis and diabetic kidney disease with baseline creatinine near 2. His creatinine peaked at 5.8 this admission. Patient appeared quite lethargic on May 13 and ABG was suggestive of mixed metabolic and respiratory acidosis. He is currently in intensive care unit requiring ventilator support. He was oliguric but urine output now is 30-50 mL an hour. He is off all vasopressors at this time. Feeds are currently on hold as he may be extubated today. He has undergone 3 treatments of hemodialysis so far. Last hemodialysis was on May 18. Vital signs are stable. Patient is awake. General: The patient appeared well nourished and normally developed. Intubated. HEENT: Head exam is unremarkable. Neck is without jugular venous distension. LUNGS: Scattered rhonchi. Breath sounds decreased. HEART: Rate and Rhythm are regular. First and second heart sounds normal. No murmurs, rubs or gallops. ABDOMEN: Abdominal exam reveals normal bowel sounds. Non-tender and non- distended. EXTREMITITES: No clubbing, cyanosis, or edema. Objective - Vital Signs Vital signs: Vital Signs Temp 98.3 F 05/19/17 08:00 Pulse 63 05/19/17 10:00 Resp 21 05/19/17 10:00 BP 189/72 05/14/17 17:10 Pulse Ox 98 05/19/17 10:00 Intake & Output 05/18/17 05/19/17 05/19/17 18:59 06:59 18:59 Intake Total 8881.936 4556.450 494.743 Output Total 2505 365 147 Balance -110.694 5156.450 347.743 Weight 92.9 kg Intake: IV 600 340 120 .9 400 340 120 Levofloxacin 500Mg-D5w 100 Pmx 500 mg In Dextrose/ Water 1 100ml.bag @ 100 mls/hr IVPB Q48H [facility] Rx#: [id number] cefTAZidime 0.5 gm In 100 Sodium Chloride 0.9% 50 ml @ 100 mls/hr IVPB DAILY [facility] Rx#:[id number] Intake, IV Titration 241.107 701.450 74.743 Amount Clevidipine Butyrate 25 52.733 67.400 mg In Empty Bag 1 bag @ 1 MG/HR 2 mls/hr IV .Q24H [facility] Rx#:[id number] Insulin Regular 100 unit 88.374 84.050 23.297 In Sodium Chloride 0.9% 100 ml @ Per Protocol IV .Q0M [facility] Rx#:[id number] Propofol 1,000 mg In 100 100.000 300 51.446 ml @ Titrate IV .Q0M [facility]IN Rx#:[id number] Vancomycin 1,500 mg In 250 Sodium Chloride 0.9% 250 ml @ 125 mls/hr IVPB ONCE ONE Rx#:[id number] Oral 0 0 Tube Feeding 990 960 300 Other 160 90 Output: Urine 505 365 147 Other 2000 Other: Voiding Method Indwelling Catheter Indwelling Catheter Indwelling Catheter ABP, PAP, CO, CI - Last Documented Arterial Blood Pressure 166/45 - Labs CBC & Chem 7: 05/19/17 04:15 05/19/17 04:15 Labs: Abnormal Lab Results - Last 24 Hours (Table) 05/18/17 05/18/17 05/18/17 Range/Units 12:28 13:34 15:00 WBC (3.8-10.6) k/uL RBC (4.30-5.90) m/uL Hgb (13.0-17.5) gm/dL Hct (39.0-53.0) % MCHC (31.0-37.0) g/dL RDW (11.5-15.5) % Neutrophils # (Manual) (1.3-7.7) k/uL Lymphocytes # (Manual) (1.0-4.8) k/uL Metamyelocytes # (Man) (0) k/uL Myelocytes # (Manual) (0) k/uL ABG Total CO2 (19-24) mmol/L Sodium (137-145) mmol/L BUN (9-20) mg/dL Creatinine (0.66-1.25) mg/dL Glucose (74-99) mg/dL POC Glucose (mg/dL) 146 H 146 H 111 H (75-99) mg/dL Calcium (8.4-10.2) mg/dL 05/18/17 05/18/17 05/18/17 Range/Units 15:41 16:37 17:41 WBC (3.8-10.6) k/uL RBC (4.30-5.90) m/uL Hgb (13.0-17.5) gm/dL Hct (39.0-53.0) % MCHC (31.0-37.0) g/dL RDW (11.5-15.5) % Neutrophils # (Manual) (1.3-7.7) k/uL Lymphocytes # (Manual) (1.0-4.8) k/uL Metamyelocytes # (Man) (0) k/uL Myelocytes # (Manual) (0) k/uL ABG Total CO2 (19-24) mmol/L Sodium (137-145) mmol/L BUN (9-20) mg/dL Creatinine (0.66-1.25) mg/dL Glucose (74-99) mg/dL POC Glucose (mg/dL) 117 H 127 H 174 H (75-99) mg/dL Calcium (8.4-10.2) mg/dL 05/18/17 05/18/17 05/18/17 Range/Units 19:10 20:06 21:00 WBC (3.8-10.6) k/uL RBC (4.30-5.90) m/uL Hgb (13.0-17.5) gm/dL Hct (39.0-53.0) % MCHC (31.0-37.0) g/dL RDW (11.5-15.5) % Neutrophils # (Manual) (1.3-7.7) k/uL Lymphocytes # (Manual) (1.0-4.8) k/uL Metamyelocytes # (Man) (0) k/uL Myelocytes # (Manual) (0) k/uL ABG Total CO2 (19-24) mmol/L Sodium (137-145) mmol/L BUN (9-20) mg/dL Creatinine (0.66-1.25) mg/dL Glucose (74-99) mg/dL POC Glucose (mg/dL) 178 H 190 H 173 H (75-99) mg/dL Calcium (8.4-10.2) mg/dL 05/18/17 05/18/17 05/19/17 Range/Units 21:59 22:59 00:00 WBC (3.8-10.6) k/uL RBC (4.30-5.90) m/uL Hgb (13.0-17.5) gm/dL Hct (39.0-53.0) % MCHC (31.0-37.0) g/dL RDW (11.5-15.5) % Neutrophils # (Manual) (1.3-7.7) k/uL Lymphocytes # (Manual) (1.0-4.8) k/uL Metamyelocytes # (Man) (0) k/uL Myelocytes # (Manual) (0) k/uL ABG Total CO2 (19-24) mmol/L Sodium (137-145) mmol/L BUN (9-20) mg/dL Creatinine (0.66-1.25) mg/dL Glucose (74-99) mg/dL POC Glucose (mg/dL) 160 H 145 H 151 H (75-99) mg/dL Calcium (8.4-10.2) mg/dL 05/19/17 05/19/17 05/19/17 Range/Units 01:05 02:35 03:58 WBC (3.8-10.6) k/uL RBC (4.30-5.90) m/uL Hgb (13.0-17.5) gm/dL Hct (39.0-53.0) % MCHC (31.0-37.0) g/dL RDW (11.5-15.5) % Neutrophils # (Manual) (1.3-7.7) k/uL Lymphocytes # (Manual) (1.0-4.8) k/uL Metamyelocytes # (Man) (0) k/uL Myelocytes # (Manual) (0) k/uL ABG Total CO2 (19-24) mmol/L Sodium (137-145) mmol/L BUN (9-20) mg/dL Creatinine (0.66-1.25) mg/dL Glucose (74-99) mg/dL POC Glucose (mg/dL) 150 H 155 H 158 H (75-99) mg/dL Calcium (8.4-10.2) mg/dL 05/19/17 05/19/17 05/19/17 Range/Units 04:15 04:15 04:58 WBC 18.2 H (3.8-10.6) k/uL RBC 2.88 L (4.30-5.90) m/uL Hgb 7.6 L (13.0-17.5) gm/dL Hct 25.1 L (39.0-53.0) % MCHC 30.3 L (31.0-37.0) g/dL RDW 16.1 H (11.5-15.5) % Neutrophils # (Manual) 16.00 H (1.3-7.7) k/uL Lymphocytes # (Manual) 0.73 L (1.0-4.8) k/uL Metamyelocytes # (Man) 0.91 H (0) k/uL Myelocytes # (Manual) 0.18 H (0) k/uL ABG Total CO2 (19-24) mmol/L Sodium 134 L (137-145) mmol/L BUN 92 H* (9-20) mg/dL Creatinine 2.60 H (0.66-1.25) mg/dL Glucose 166 H (74-99) mg/dL POC Glucose (mg/dL) 173 H (75-99) mg/dL Calcium 7.9 L (8.4-10.2) mg/dL 05/19/17 05/19/17 05/19/17 Range/Units 06:17 07:02 08:05 WBC (3.8-10.6) k/uL RBC (4.30-5.90) m/uL Hgb (13.0-17.5) gm/dL Hct (39.0-53.0) % MCHC (31.0-37.0) g/dL RDW (11.5-15.5) % Neutrophils # (Manual) (1.3-7.7) k/uL Lymphocytes # (Manual) (1.0-4.8) k/uL Metamyelocytes # (Man) (0) k/uL Myelocytes # (Manual) (0) k/uL ABG Total CO2 (19-24) mmol/L Sodium (137-145) mmol/L BUN (9-20) mg/dL Creatinine (0.66-1.25) mg/dL Glucose (74-99) mg/dL POC Glucose (mg/dL) 160 H 160 H 154 H (75-99) mg/dL Calcium (8.4-10.2) mg/dL 05/19/17 05/19/17 Range/Units 08:32 10:04 WBC (3.8-10.6) k/uL RBC (4.30-5.90) m/uL Hgb (13.0-17.5) gm/dL Hct (39.0-53.0) % MCHC (31.0-37.0) g/dL RDW (11.5-15.5) % Neutrophils # (Manual) (1.3-7.7) k/uL Lymphocytes # (Manual) (1.0-4.8) k/uL Metamyelocytes # (Man) (0) k/uL Myelocytes # (Manual) (0) k/uL ABG Total CO2 26 H (19-24) mmol/L Sodium (137-145) mmol/L BUN (9-20) mg/dL Creatinine (0.66-1.25) mg/dL Glucose (74-99) mg/dL POC Glucose (mg/dL) 112 H (75-99) mg/dL Calcium (8.4-10.2) mg/dL Assessment and Plan Plan: Assessment: #1. Acute kidney injury secondary to ATN secondary to pneumonia and further worsened with the use of diuretics and MIC inhibitor. Patient was also hypotensive requiring vasopressors. Postvoid residual was 170. Creatinine peaked at 5.8 this admission. He was started on hemodialysis and has undergone 3 treatments so far - last HD on 05/18/17. BUN elevated which is partially related to IV steroids. #2. Chronic kidney disease stage IIIB secondary to nephrosclerosis and diabetic kidney disease with baseline creatinine near 2. #3. Hyperkalemia secondary to acute kidney injury and metabolic acidosis. Resolved. #4. Metabolic acidosis secondary to acute kidney injury. Respiratory acidosis present as well. Improved. #5. Pneumonia, maintain on antibiotics. #6. Anemia with severe iron deficiency, status post 3 doses of IV iron. Monitor hemoglobin. #7. Hyperphosphatemia secondary to acute kidney injury. Improved postdialysis. Plan: Hep-Lock IV fluids. Chest x-ray suggestive of vascular congestion as well as pneumonia - third treatment of hemodialysis was done May 18 with 2 L ultrafiltration. Lasix 60 mg IV once today. Wean FiO2. Possible extubation today. Maintain [place] catheter for accurate I's and os. Wean cleviprex. Continue with current antihypertensives. Continue to assess on a day-to-day basis for need for renal replacement therapy.
[2017-05-19 11:36] LABS: Glucose,Whole Blood 139 mg/dL (75-99)
[2017-05-19 12:29] LABS: ABG Base Excess 0.7 mmol/L; ABG HCO3 24 mmol/L (21-25); ABG Oxygen Saturation 98.3 % (94-97); ABG PCO2 36 mmHg (35-45); ABG PH 7.44 (7.35-7.45); ABG PO2 105 mmHg (83-108); ABG TCO2 26 mmol/L (19-24)
--- NOTE | 2017-05-19 12:47 | P.PN ---
Subjective Progress Note Date: 05/19/17 Principal diagnosis: Acute hypoxic respiratory failure secondary to pneumonia, congestive heart failure, and underlying COPD. A 67-year-old male patient who is being seen in consultation upon the request of Dr. Jerez for worsening shortness of breath. At the time of my evaluation , the patient was noted to be quite lethargic and somnolent. He was arousable. He had increased cough and congestion. He had diminished breath sounds throughout his lung pearson bilaterally. He was placed on oxygen at 3 L/m nasal cannula. A blood gas was ordered and it showed a pH of 7.2 with a pCO2 of 50 and a pO2 of 78 at 3 L/m nasal cannula. The patient was also found to be in acute on top of chronic renal failure with an underlying metabolic acidosis and acute hyperkalemia with a potassium level of 5.9. For that reason I made recommendations for this patient to be transferred to the intensive care unit. I was also told that the patient was having hypoglycemic events and he was placed on D5 half-normal saline at rate of 70 and an hour. This patient has history of COPD. The patient is an ex-smoker. His undergone coronary artery bypass surgery 2 years back and [facility] for underlying coronary artery disease. He is also known to have ischemic artery myopathy and has had an AICD in place. He suffers from chronic renal failure. He has hypertension and hyperlipidemia and diabetes mellitus. He presented to the hospital because of increased cough congestion and worsening shortness of breath. No major swelling in lower extremities. No orthopnea. No peripheral edema. His white cell count was nonelevated. His hemoglobin was low and the patient has chronic anemia with a hemoglobin of 8.3-8.4 and he was given IV iron. He was being diuresis with IV Lasix and diuretics got placed on hold as the patient developed an acute on top of chronic renal failure. The patient is also covered with broad-spectrum antibiotics and is currently on IV Fortaz. On 05/14/2017 I'm seeing this patient for a follow-up. The patient is quite lethargic and somnolent and he still continues to have significant limitations level of consciousness. Overnight he was also agitated and confused and he had required a dose of Ativan 1 mg which controlled his agitation. Overnight he was also kept on a BiPAP at a pressure of 12/5 cm of water and FiO2 of 40%. He continues to be oliguric. His renal function is progressively getting worse in his creatinine is up to 5.8. He was started on a bicarb drip yesterday and his serum bicarb is up to 17 and he has an anion gap of 17. The patient's chest x- ray from today showing multilobar pneumonia. A CAT scan of the chest was also done yesterday that showed bilateral pneumonia with airspace disease in the left upper lobe and some minimal airspace disease present in the right lung base. He has a weak cough. He is having difficulties in breathing and up his rest or secretions. His was unable to swallow today due to his marked diminishment in level of consciousness. And based on all this, I made decision to intubate the patient and place him on a mechanical ventilator. I also contacted nephrology and the patient is being considered for hemodialysis today. He is diabetic. His blood sugars have been within the hypoglycemic range and his most recent blood sugar is 163. He remains on D5 with 3 A of bicarb at the rate of 75 mL an hour. On 05/15/2017 the patient is being seen in follow-up in the intensive care unit. As mentioned, the patient was intubated and placed on a mechanical ventilator. This morning his well sedated and is calm and comfortable on Diprivan running at 50 mics. He is also on assist control mode of ventilation at the rate of 24, tidal volume of 500, FiO2 of 60% and a PEEP of 5. Chest x- ray from this morning shows adequate positioning of the orotracheal and orogastric tube. There is some atelectatic changes and left lung base. Overall the aeration is improved. The patient had a bronchoscopy yesterday and the bronchial lavage has been sent for microbial analysis and the results are still pending for now. Meanwhile he is on a broad-spectrum antibiotic coverage including a combination of cefepime, Levaquin and vancomycin. No fever. No hypotension. No chills. The patient is producing diminished urine output and he is still in acute kidney injury. A dialysis catheter was inserted yesterday and received his first session of dialysis yesterday. No volume was taken off and the patient had strict dialysis. The patient is improving in terms of his metabolic derangements. In fact on today's blood gases having a component of acute Minnie alkalosis with a pH of 7.5 and a pCO2 of 31 and pO2 of 98. As for his serum bicarb, there is up to 22 and the creatinine is down to 4.12. The patient is on a sliding scale insulin coverage for blood sugar control. He was having issues with elevated blood pressure post intubation. Currently is on a clevidipine running at 1 mg an hour and his blood pressure is under good control. On 05/16/2017 the patient is being seen in follow-up in the intensive care unit. The patient remains intubated on a mechanical ventilator. The morning vent setting showed an assist-control mode at the rate of 20, tidal volume of 450, FiO2 of 60% and PEEP of 5. Morning blood gases showed a pH of 7.45 with a pCO2 of 36 and pO2 46. Based on this the FiO2 was gradually wean down to 50% and hopefully down to 40%. Chest x-ray shows worsening of the right the pulmonary infiltrates especially on the left. ET tube is in a good location. Bronchoscopy was done and the bronchioloalveolar lavage has not shown any microbial growth. Meanwhile the patient remains on a broad-spectrum antibiotics and the patient is currently on a combination of cefepime and Levaquin and vancomycin. Hemodynamically he is doing well. He is on no pressors. In fact he was requiring clevidipine drip for blood pressure control. His blood pressure is controlled on 2 mg of clevidipine drip. He underwent dialysis yesterday without ultrafiltration. His creatinine is down to 2.85 and the patient is producing urine and order of 50-75 mL an hour. His urine output is improved. I'm not sure if he is going to require dialysis tomorrow. Discussed the case with the nephrology. Would like to give him a dose of Lasix to augment his urine output and he will be receiving 60 mg IV push. The patient is still sedated on Diprivan. Diprivan is running at 50 mics. He can still wake himself up through the sedation. He is moving all 4 extremities. His sedation has been titrated on Diprivan at times at is being brought up to 60 mics. The patient's cardiac ventricular paced. He is tolerating his tube feeds. He is on insulin drip running at 5 units an hour. He is still on a bronchodilators and systemic steroids for his COPD exacerbation. No other significant events overnight. Reevaluated today on 05/17/2017, patient remains on mechanical ventilation, presently a tidal volume of 450 assist control rate of 20 FiO2 is 45% and PEEP is 5. ABG showed a pO2 of 93 pCO2 of 38 pH of 7.41. Chest x-ray was reviewed, there is evidence of diffuse interstitial opacities and airspace disease bilaterally more so in the left perihilar area I believe the findings are mostly findings of pneumonia and congestive heart failure. His bronchoscopy has been nondiagnostic. Patient remains on broad-spectrum antibiotics in the form of cefepime and Levaquin as well as vancomycin. Patient is hemodynamically stable, not requiring any drips, he is however on clevidipine for elevated blood pressure. CBC showed normal WBC count hemoglobin is 7.2 BUN is 81 creatinine 2.90. Urine output seems to be adequate. And improving. Patient is not requiring dialysis at this point. Patient remains on propofol for sedation. He is also on nutritional support via enteral feeding. Remains on bronchodilators, remains on insulin drip. Reevaluated today on 05/18/2017, patient remains on mechanical ventilation, remains on the same ventilator settings as noted above. Patient was taken off sedation, but does not seem to be appropriate, confused, does not seem to follow any instructions. Patient does not seem to be in distress, however he remains on assist control mode of mechanical ventilation, and his chest x-ray continues to show air space disease mostly in the left perihilar area and left lower lobe. I believe the patient has ongoing pneumonia although his bronchoscopy was nondiagnostic. His congestive heart failure seems to have improved. Patient remains on clevidipine for elevated blood pressure. And that is being adjusted by cardiology on the case. WBC count is 11.9 hemoglobin is 7.4. ABG showed a pO2 of 78 pCO2 of 38 pH of 7.41 renal profile remains abnormal with BUN of 102 creatinine of 3.10. is at bedside, and I discussed his condition with the , also recommended CT of the brain because of his mental status, and it showed no specific abnormality except for chronic sinusitis and mastoiditis. Reevaluated today on 05/19/2017, patient remains on mechanical ventilation, however off sedation, and his mental status significantly improved over the last 24 hours. Patient is following simple instructions like squeezing hands, wiggling toes, and seems to be comprehending or what he is being controlled. Patient was given a trial of weaning using pressure support and CPAP, and he was noted to do quite well. ABG done on pressure support of 8 and CPAP, showed excellent gases with pO2 of 105 pCO2 of 36 pH of 7.44. His basic metabolic profile was also reviewed. BUN is down to 94 creatinine is down to 2.60, patient was dialyzed yesterday. Hemoglobin is 7.6 today. Patient has clearly acute kidney injury on chronic kidney disease. 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 Baseline creatinine is about 2.0. Urine output remains marginal roughly about 30-50 an hour. Patient remains off pressors. And his tube feeding via nasogastric tube was placed on hold earlier. Chest x-ray continues to show small left basilar consolidation and pulmonary vascular congestion. Objective - Vital Signs Vital signs: Vital Signs Temp 98.3 F 05/19/17 08:00 Pulse 60 05/19/17 12:00 Resp 17 05/19/17 12:00 BP 189/72 05/14/17 17:10 Pulse Ox 98 05/19/17 12:00 Intake & Output 05/18/17 05/19/17 05/19/17 18:59 06:59 18:59 Intake Total 9439.923 3098.450 654.743 Output Total 2505 365 322 Balance -271.103 1474.450 332.743 Weight 92.9 kg Intake: IV 600 340 160 .9 400 340 160 Levofloxacin 500Mg-D5w 100 Pmx 500 mg In Dextrose/ Water 1 100ml.bag @ 100 mls/hr IVPB Q48H [facility] Rx#: [id number] cefTAZidime 0.5 gm In 100 Sodium Chloride 0.9% 50 ml @ 100 mls/hr IVPB DAILY [facility] Rx#:[id number] Intake, IV Titration 241.107 701.450 74.743 Amount Clevidipine Butyrate 25 52.733 67.400 mg In Empty Bag 1 bag @ 1 MG/HR 2 mls/hr IV .Q24H [facility] Rx#:[id number] Insulin Regular 100 unit 88.374 84.050 23.297 In Sodium Chloride 0.9% 100 ml @ Per Protocol IV .Q0M [facility] Rx#:[id number] Propofol 1,000 mg In 100 100.000 300 51.446 ml @ Titrate IV .Q0M [facility] Rx#:[id number] Vancomycin 1,500 mg In 250 Sodium Chloride 0.9% 250 ml @ 125 mls/hr IVPB ONCE ONE Rx#:[id number] Oral 0 0 Tube Feeding 990 960 420 Other 160 90 Output: Urine 505 365 322 Other 2000 Other: Voiding Method Indwelling Catheter Indwelling Catheter Indwelling Catheter ABP, PAP, CO, CI - Last Documented Arterial Blood Pressure 164/49 - Exam Physical exam: Revealed a 67-year-old white male in no distress. On mechanical ventilation. Endotracheal tube seems to be intact. Patient awake, follows simple instructions without any difficulty. neck is short and thick and supple and there is no significant neck veins. No JVDs. No goiter.Head exam was generally normal. There was no scleral icterus or corneal arcus. Mucous membranes were moist. Lungs sounds are diminished bilaterally otherwise clear in breast on that equal and symmetrical. Cardiac exam revealed the PMI to be normally situated and sized. The rhythm was regular and no extrasystoles were noted during several minutes of auscultation. The first and second heart sounds were normal and physiologic splitting of the second heart sound was noted. There were no murmurs, rubs, clicks, or gallops. Abdominal exam revealed normal bowel sounds. The abdomen was soft, non-tender, and without masses, organomegaly, or appreciable enlargement of the abdominal aorta. Patient is obese and organs cannot be accurately palpated on today's evaluation. Examination of the extremities revealed easily palpable radial, femoral and pedal pulses. There was no cyanosis, clubbing or edema. Neurologically the patient is awake, follows all simple instructions like squeezing hands and wiggling toes seems to be comprehending all what he was told. Examination of the skin revealed no evidence of significant rashes, suspicious appearing nevi or other concerning lesions. Psychiatric: Blunted affect, otherwise cannot be assessed - Labs CBC & Chem 7: 05/19/17 04:15 05/19/17 04:15 Labs: Abnormal Lab Results - Last 24 Hours (Table) 05/18/17 05/18/17 05/18/17 Range/Units 13:34 15:00 15:41 WBC (3.8-10.6) k/uL RBC (4.30-5.90) m/uL Hgb (13.0-17.5) gm/dL Hct (39.0-53.0) % MCHC (31.0-37.0) g/dL RDW (11.5-15.5) % Neutrophils # (Manual) (1.3-7.7) k/uL Lymphocytes # (Manual) (1.0-4.8) k/uL Metamyelocytes # (Man) (0) k/uL Myelocytes # (Manual) (0) k/uL ABG Total CO2 (19-24) mmol/L ABG O2 Saturation (94-97) % Sodium (137-145) mmol/L BUN (9-20) mg/dL Creatinine (0.66-1.25) mg/dL Glucose (74-99) mg/dL POC Glucose (mg/dL) 146 H 111 H 117 H (75-99) mg/dL Calcium (8.4-10.2) mg/dL 05/18/17 05/18/17 05/18/17 Range/Units 16:37 17:41 19:10 WBC (3.8-10.6) k/uL RBC (4.30-5.90) m/uL Hgb (13.0-17.5) gm/dL Hct (39.0-53.0) % MCHC (31.0-37.0) g/dL RDW (11.5-15.5) % Neutrophils # (Manual) (1.3-7.7) k/uL Lymphocytes # (Manual) (1.0-4.8) k/uL Metamyelocytes # (Man) (0) k/uL Myelocytes # (Manual) (0) k/uL ABG Total CO2 (19-24) mmol/L ABG O2 Saturation (94-97) % Sodium (137-145) mmol/L BUN (9-20) mg/dL Creatinine (0.66-1.25) mg/dL Glucose (74-99) mg/dL POC Glucose (mg/dL) 127 H 174 H 178 H (75-99) mg/dL Calcium (8.4-10.2) mg/dL 05/18/17 05/18/17 05/18/17 Range/Units 20:06 21:00 21:59 WBC (3.8-10.6) k/uL RBC (4.30-5.90) m/uL Hgb (13.0-17.5) gm/dL Hct (39.0-53.0) % MCHC (31.0-37.0) g/dL RDW (11.5-15.5) % Neutrophils # (Manual) (1.3-7.7) k/uL Lymphocytes # (Manual) (1.0-4.8) k/uL Metamyelocytes # (Man) (0) k/uL Myelocytes # (Manual) (0) k/uL ABG Total CO2 (19-24) mmol/L ABG O2 Saturation (94-97) % Sodium (137-145) mmol/L BUN (9-20) mg/dL Creatinine (0.66-1.25) mg/dL Glucose (74-99) mg/dL POC Glucose (mg/dL) 190 H 173 H 160 H (75-99) mg/dL Calcium (8.4-10.2) mg/dL 05/18/17 05/19/17 05/19/17 Range/Units 22:59 00:00 01:05 WBC (3.8-10.6) k/uL RBC (4.30-5.90) m/uL Hgb (13.0-17.5) gm/dL Hct (39.0-53.0) % MCHC (31.0-37.0) g/dL RDW (11.5-15.5) % Neutrophils # (Manual) (1.3-7.7) k/uL Lymphocytes # (Manual) (1.0-4.8) k/uL Metamyelocytes # (Man) (0) k/uL Myelocytes # (Manual) (0) k/uL ABG Total CO2 (19-24) mmol/L ABG O2 Saturation (94-97) % Sodium (137-145) mmol/L BUN (9-20) mg/dL Creatinine (0.66-1.25) mg/dL Glucose (74-99) mg/dL POC Glucose (mg/dL) 145 H 151 H 150 H (75-99) mg/dL Calcium (8.4-10.2) mg/dL 05/19/17 05/19/17 05/19/17 Range/Units 02:35 03:58 04:15 WBC (3.8-10.6) k/uL RBC (4.30-5.90) m/uL Hgb (13.0-17.5) gm/dL Hct (39.0-53.0) % MCHC (31.0-37.0) g/dL RDW (11.5-15.5) % Neutrophils # (Manual) (1.3-7.7) k/uL Lymphocytes # (Manual) (1.0-4.8) k/uL Metamyelocytes # (Man) (0) k/uL Myelocytes # (Manual) (0) k/uL ABG Total CO2 (19-24) mmol/L ABG O2 Saturation (94-97) % Sodium 134 L (137-145) mmol/L BUN 92 H* (9-20) mg/dL Creatinine 2.60 H (0.66-1.25) mg/dL Glucose 166 H (74-99) mg/dL POC Glucose (mg/dL) 155 H 158 H (75-99) mg/dL Calcium 7.9 L (8.4-10.2) mg/dL 05/19/17 05/19/17 05/19/17 Range/Units 04:15 04:58 06:17 WBC 18.2 H (3.8-10.6) k/uL RBC 2.88 L (4.30-5.90) m/uL Hgb 7.6 L (13.0-17.5) gm/dL Hct 25.1 L (39.0-53.0) % MCHC 30.3 L (31.0-37.0) g/dL RDW 16.1 H (11.5-15.5) % Neutrophils # (Manual) 16.00 H (1.3-7.7) k/uL Lymphocytes # (Manual) 0.73 L (1.0-4.8) k/uL Metamyelocytes # (Man) 0.91 H (0) k/uL Myelocytes # (Manual) 0.18 H (0) k/uL ABG Total CO2 (19-24) mmol/L ABG O2 Saturation (94-97) % Sodium (137-145) mmol/L BUN (9-20) mg/dL Creatinine (0.66-1.25) mg/dL Glucose (74-99) mg/dL POC Glucose (mg/dL) 173 H 160 H (75-99) mg/dL Calcium (8.4-10.2) mg/dL 05/19/17 05/19/17 05/19/17 Range/Units 07:02 08:05 08:32 WBC (3.8-10.6) k/uL RBC (4.30-5.90) m/uL Hgb (13.0-17.5) gm/dL Hct (39.0-53.0) % MCHC (31.0-37.0) g/dL RDW (11.5-15.5) % Neutrophils # (Manual) (1.3-7.7) k/uL Lymphocytes # (Manual) (1.0-4.8) k/uL Metamyelocytes # (Man) (0) k/uL Myelocytes # (Manual) (0) k/uL ABG Total CO2 26 H (19-24) mmol/L ABG O2 Saturation (94-97) % Sodium (137-145) mmol/L BUN (9-20) mg/dL Creatinine (0.66-1.25) mg/dL Glucose (74-99) mg/dL POC Glucose (mg/dL) 160 H 154 H (75-99) mg/dL Calcium (8.4-10.2) mg/dL 05/19/17 05/19/17 05/19/17 Range/Units 10:04 11:34 12:20 WBC (3.8-10.6) k/uL RBC (4.30-5.90) m/uL Hgb (13.0-17.5) gm/dL Hct (39.0-53.0) % MCHC (31.0-37.0) g/dL RDW (11.5-15.5) % Neutrophils # (Manual) (1.3-7.7) k/uL Lymphocytes # (Manual) (1.0-4.8) k/uL Metamyelocytes # (Man) (0) k/uL Myelocytes # (Manual) (0) k/uL ABG Total CO2 26 H (19-24) mmol/L ABG O2 Saturation 98.3 H (94-97) % Sodium (137-145) mmol/L BUN (9-20) mg/dL Creatinine (0.66-1.25) mg/dL Glucose (74-99) mg/dL POC Glucose (mg/dL) 112 H 139 H (75-99) mg/dL Calcium (8.4-10.2) mg/dL Assessment and Plan Plan: 1 bilateral pneumonia worse on the left with secondary acute hypoxic respiratory failure. Patient is currently intubated on a mechanical ventilator. The bronchoscopy and bronchial lavage showed no microbial growth and the patient remains on a combination of cefepime and Levaquin and vancomycin. Awaiting final cultures from the bronchioloalveolar lavage. Meanwhile, continue the antibiotics. Continue the vent support. Drop down the FiO2 down to 45 % Sedation holiday. No plans for extubation today. 2 acute COPD exacerbation secondary to left lung pneumonia, improving and the steroid dose can be tapered further. 3 acute hypertensive reaction currently on clevidipine drip for blood pressure control, currently on 2 mg of clevidipine drip for tighter blood pressure control 4 diastolic congestion heart failure, ischemic cardiomyopathy and the most recent echocardiogram shows a low normal ejection fraction with an EF around 50- 55%, severely dilated LA, severe pulmonary hypertension with a PA pressure of 68 5 coronary artery disease with previous coronary artery bypass surgery 6 history of cardiac block status post pacemaker insertion/AICD insertion 7 acute on top of chronic renal failure, likely secondary to diuresis. The patient overall had 2 sessions of hemodialysis. His urine output is improved. His acid base balance is also improved. He had severe metabolic acidosis which got corrected. He is producing better urine output. Nephrology is on the case. He has some bleeding at the dialysis catheter insertion site in his right groin. This was monitored very closely. Is on a combination of aspirin and Plavix. His correlation profile is within normal limits. Unsure if he is given needs some more dialysis within the next 24 hours. He'll be monitored very closely. 8 chronic renal failure with stage III to 4 chronic kidney disease 9 diabetes mellitus, currently in size Blood sugar control 10 hypertension 11 hyperlipidemia. 12 hyperkalemia, improved 15 peripheral vascular disease 14 previous history of GI bleed 15 chronic iron deficiency 16 metabolic acidosis currently improved 17 enteral feeding for nutritional support via tube feeds 18 bleeding from catheter insertion site in the right femoral vein, currently inactive 19 anemia where the patient's hemoglobin is down to 7.6 Recommendation: Patient will be given a weaning trial today, and I would likely extubated the patient if he does well with a pressure support of 8 and CPAP. As I was dictating this progress note, I was notified by the nurse about his ABG showing good gases on pressure support of 8 and CPAP. Patient did not seem to be in distress, hence proceeded to extubating the patient to a nasal cannula. Patient remains critically ill, he will remain in the ICU, and we'll continue to follow closely. Discussed his condition with his at bedside. And explained to her that we will likely extubated today, however if he fails we will reintubated. Time with Patient: 35 minutes Time with Patient: Greater than 30
[2017-05-19 12:48] LABS: Glucose,Whole Blood 202 mg/dL (75-99)
[2017-05-19] MEDS: SCOPOLAMINE 1.5MG/72HR PATCH TRANSDERM SCH (13:10)
[2017-05-19 14:07] LABS: Glucose,Whole Blood 156 mg/dL (75-99)
[2017-05-19] MEDS: hydrALAZINE HCL 20 MG/ML 1 ML VIAL IVP PRN ×4 (14:12→22:12)
[2017-05-19 15:10] LABS: Glucose,Whole Blood 123 mg/dL (75-99)
[2017-05-19 15:43] LABS: Glucose,Whole Blood 108 mg/dL (75-99)
[2017-05-19] MEDS: cloNIDine HCL 0.1 MG TAB PO SCH (16:47)
[2017-05-19 16:57] LABS: Glucose,Whole Blood 122 mg/dL (75-99)
[2017-05-19 17:58] LABS: Glucose,Whole Blood 133 mg/dL (75-99)
[2017-05-19] MEDS: METOCLOPRAMIDE 5 MG/ML 2 ML VIAL IVP PRN (18:07)
[2017-05-19 19:10] LABS: Glucose,Whole Blood 150 mg/dL (75-99)
[2017-05-19 20:26] LABS: Glucose,Whole Blood 132 mg/dL (75-99)
[2017-05-19] MEDS: ATORVASTATIN 40 MG TAB PO SCH (20:28)
[2017-05-19] MEDS: FOLIC ACID 1 MG TAB PO SCH (20:29)
[2017-05-19 21:14] LABS: Glucose,Whole Blood 123 mg/dL (75-99)
[2017-05-19 21:58] LABS: Glucose,Whole Blood 130 mg/dL (75-99)
[2017-05-19 23:09] LABS: Glucose,Whole Blood 146 mg/dL (75-99)
[2017-05-20 00:02] LABS: Glucose,Whole Blood 157 mg/dL (75-99)
[2017-05-20 00:55] LABS: Glucose,Whole Blood 145 mg/dL (75-99)
[2017-05-20 01:58] LABS: Glucose,Whole Blood 149 mg/dL (75-99)
[2017-05-20 03:03] LABS: Glucose,Whole Blood 128 mg/dL (75-99)
[2017-05-20 04:05] LABS: Glucose,Whole Blood 143 mg/dL (75-99)
[2017-05-20 05:18] LABS: Glucose,Whole Blood 147 mg/dL (75-99)
--- NOTE | 2017-05-20 05:52 | PN ---
PROGRESS NOTE DATE OF SERVICE: 05/19/2017 PRESENTING COMPLAINT: Short of breath. INTERVAL HISTORY: The patient has multiple medical problems. Admitted to the ICU, intubated. Patient is a bit more awake, off the Diprivan, following simple commands. Remains on the ventilator. Drips include clevidipine, off the Diprivan, tube feeding is continued. REVIEW OF SYSTEMS: Review of systems cannot be done as patient is on the ventilator. CURRENT MEDICATIONS: Current medications are reviewed that include IV ceftazidime, insulin drip, IV Levaquin. PHYSICAL EXAMINATION: On examination, temperature 98.3 pulse 59, respirations 23, blood pressure 167/43, pulse ox 98% on the ventilator. GENERAL APPEARANCE: Sitting up, lethargic, but awake. EYES: Pupils equal. Conjunctivae normal. HENT: Endotracheal tube in place. NECK: JVD unable to assess. Mass not palpable. RESPIRATORY: Effort increased. LUNGS: Decreased breath sounds crackles. CARDIOVASCULAR: Heart sounds muffled. Edema present. ABDOMEN: Soft, nontender. Liver and spleen not palpable. NEUROLOGICAL: Patient is following simple commands, though lethargic. INVESTIGATIONS: White count 18.2, hemoglobin 7.6, platelets 205. Potassium 4.5. BUN 92, creatinine 2.60. ASSESSMENT: 1. Bilateral pneumonia suspect gram-negative organism causing acute hypoxic respiratory failure, on ventilator. 2. Status post bronchoscopy. 3. Acute chronic obstructive pulmonary disease exacerbation. 4. Essential hypertension with urgency, currently on a clevidipine drip. 5. Acute on chronic congestive heart failure from systolic and diastolic dysfunction. Ejection fraction around 50% secondary to hypertensive heart disease. 6. Severe secondary pulmonary hypertension secondary to chronic obstructive pulmonary disease. 7. Coronary artery disease with prior history of coronary artery bypass grafting. 8. AICD pacemaker in place. 9. Acute renal failure, multifactorial, probably acute tubular necrosis, now hemodialysis dependent. 10.Hyperlipidemia. 11.Peripheral artery disease. 12.Metabolic acidosis. 13.Chronic kidney disease, stage IIIB secondary to nephrosclerosis and diabetic kidney disease with baseline creatinine being around 2. PLAN: Continue medication and treatment plan including antibiotics. Patient did get Lasix 60 mg once a day today, Cleviprex is slowly being weaned down. Did talk to the at the bedside. Prognosis still remains guarded. Will follow. MMODL / IJN: [id number] /
[2017-05-20 06:04] LABS: Anisocytosis Slight; CH 27.2; CHCM 30.9; HCT 21.2 % (39.0-53.0); HDW 2.47; HGB 7.8 gm/dL (13.0-17.5); Hypochromasia Slight; MCH 32.6 pg (25.0-35.0); MCHC 36.8 g/dL (31.0-37.0); MCV 88.4 fL (80.0-100.0); RDW 17.6 % (11.5-15.5); WBC 19.8 k/uL (3.8-10.6)
[2017-05-20 06:10] LABS: Glucose,Whole Blood 165 mg/dL (75-99)
[2017-05-20 06:32] LABS: Calcium 8.3 mg/dL (8.4-10.2); Magnesium 1.9 mg/dL (1.6-2.3); Phosphorous 7.3 mg/dL (2.5-4.5); Potassium 4.7 mmol/L (3.5-5.1)
[2017-05-20 06:56] LABS: Glucose,Whole Blood 137 mg/dL (75-99)
[2017-05-20 08:02] LABS: Glucose,Whole Blood 140 mg/dL (75-99)
[2017-05-20] MEDS: IPRATROPIUM-ALBUTEROL 3 ML NEB INHALATION SCH ×4 (08:25→19:06)
[2017-05-20] MEDS: FERROUS SULFATE 325 MG TAB PO SCH ×2 (08:43→17:16)
[2017-05-20] MEDS: hydrALAZINE HCL 25 MG TAB PO SCH ×2 (08:43→21:14)
[2017-05-20] MEDS: ASPIRIN 81 MG PO SCH ×2 (08:44→21:13)
[2017-05-20] MEDS: cloNIDine HCL 0.1 MG TAB PO SCH (08:44)
[2017-05-20] MEDS: CLOPIDOGREL 75 MG TAB PO SCH (08:44)
[2017-05-20] MEDS: CARVEDILOL 12.5 MG TAB PO SCH ×2 (08:45→17:16)
[2017-05-20] MEDS: ENOXAPARIN 30 MG/0.3 ML SYRINGE SQ SCH (08:45)
[2017-05-20] MEDS: methylPREDNISolone SOD SUCCI 40 MG/ML 1 ML VIAL IV SCH ×2 (08:45→21:14)
[2017-05-20] MEDS: VITAMIN E (DL,TOCOPHERYL ACET) 400 UNIT CAP PO SCH (08:45)
[2017-05-20] MEDS: ISOSORBIDE MONONITRATE ER 30 MG TAB.ER.24H PO SCH (08:45)
--- NOTE | 2017-05-20 08:53 | XR ---
EXAMINATION TYPE: XR chest 1V portable DATE OF EXAM: 05/20/2017 COMPARISON: 05/19/2017 INDICATION: Tube placement, previous abnormal chest TECHNIQUE: Single frontal view of the chest is obtained. FINDINGS: The heart size is enlarged. The pulmonary vasculature is normal. No suspicious consolidations are evident. There appears to be resolution of a previous left lower lob e infiltrate. The endotracheal tube and nasogastric tube is been removed. Pacemaker overlies left chest. IMPRESSION: 1. Resolution previous left lower lobe infiltrate.
[2017-05-20 09:08] LABS: Glucose,Whole Blood 143 mg/dL (75-99)
[2017-05-20 10:16] LABS: Glucose,Whole Blood 151 mg/dL (75-99)
[2017-05-20] MEDS: amLODIPine 5 MG TAB PO SCH (10:18)
--- NOTE | 2017-05-20 10:46 | P.PN ---
Subjective Patient is seen in follow-up for acute kidney injury on chronic kidney disease. Patient has chronic kidney disease stage IIIB secondary to nephrosclerosis and diabetic kidney disease with baseline creatinine near 2. His creatinine peaked at 5.8 this admission. Patient appeared quite lethargic on May 13 and ABG was suggestive of mixed metabolic and respiratory acidosis. He is currently in intensive care unit - extubated May 19. He was oliguric but urine output now is 30-50 mL an hour. He is off all vasopressors at this time. Oral feeding to be started today. He has undergone 3 treatments of hemodialysis so far. Last hemodialysis was on May 18. Patient is currently resting in bed. Denies chest pain. Denies dyspnea. Vital signs are stable. Patient is awake. General: The patient appeared well nourished and normally developed. Intubated. HEENT: Head exam is unremarkable. Neck is without jugular venous distension. LUNGS: Scattered rhonchi. Breath sounds decreased. HEART: Rate and Rhythm are regular. First and second heart sounds normal. No murmurs, rubs or gallops. ABDOMEN: Abdominal exam reveals normal bowel sounds. Non-tender and non- distended. EXTREMITITES: No clubbing, cyanosis, or edema. Objective - Vital Signs Vital signs: Vital Signs Temp 98.4 F 05/20/17 08:00 Pulse 59 L 05/20/17 10:00 Resp 16 05/20/17 10:00 BP 146/50 05/20/17 10:00 Pulse Ox 98 05/20/17 10:00 Intake & Output 05/19/17 05/20/17 05/20/17 18:59 06:59 18:59 Intake Total 901.266 286.765 60 Output Total 772 590 175 Balance 129.266 -303.235 -115 Weight 92.9 kg 91.8 kg Intake: IV 330 260 60 .9 280 260 60 cefTAZidime 1 gm In 50 Sodium Chloride 0.9% 50 ml @ 100 mls/hr IVPB Q24H [facility] Rx#:[id number] Intake, IV Titration 151.266 26.765 0 Amount Clevidipine Butyrate 25 25.4 mg In Empty Bag 1 bag @ 1 MG/HR 2 mls/hr IV .Q24H [facility] Rx#:[id number] Insulin Regular 100 unit 74.420 26.765 0 In Sodium Chloride 0.9% 100 ml @ Per Protocol IV .Q0M [facility] Rx#:[id number] Propofol 1,000 mg In 100 51.446 ml @ Titrate IV .Q0M [facility] Rx#:[id number] Oral 0 Tube Feeding 420 Output: Urine 772 590 175 Other: Voiding Method Indwelling Catheter Indwelling Catheter Indwelling Catheter ABP, PAP, CO, CI - Last Documented Arterial Blood Pressure 95/90 - Labs CBC & Chem 7: 05/20/17 05:40 05/20/17 05:40 Labs: Abnormal Lab Results - Last 24 Hours (Table) 05/19/17 05/19/17 05/19/17 Range/Units 11:34 12:20 12:47 WBC (3.8-10.6) k/uL RBC (4.30-5.90) m/uL Hgb (13.0-17.5) gm/dL Hct (39.0-53.0) % RDW (11.5-15.5) % Plt Count (150-450) k/uL ABG Total CO2 26 H (19-24) mmol/L ABG O2 Saturation 98.3 H (94-97) % BUN (9-20) mg/dL Creatinine (0.66-1.25) mg/dL Glucose (74-99) mg/dL POC Glucose (mg/dL) 139 H 202 H (75-99) mg/dL Calcium (8.4-10.2) mg/dL Phosphorus (2.5-4.5) mg/dL 05/19/17 05/19/17 05/19/17 Range/Units 14:05 15:08 15:40 WBC (3.8-10.6) k/uL RBC (4.30-5.90) m/uL Hgb (13.0-17.5) gm/dL Hct (39.0-53.0) % RDW (11.5-15.5) % Plt Count (150-450) k/uL ABG Total CO2 (19-24) mmol/L ABG O2 Saturation (94-97) % BUN (9-20) mg/dL Creatinine (0.66-1.25) mg/dL Glucose (74-99) mg/dL POC Glucose (mg/dL) 156 H 123 H 108 H (75-99) mg/dL Calcium (8.4-10.2) mg/dL Phosphorus (2.5-4.5) mg/dL 05/19/17 05/19/17 05/19/17 Range/Units 16:56 17:56 19:08 WBC (3.8-10.6) k/uL RBC (4.30-5.90) m/uL Hgb (13.0-17.5) gm/dL Hct (39.0-53.0) % RDW (11.5-15.5) % Plt Count (150-450) k/uL ABG Total CO2 (19-24) mmol/L ABG O2 Saturation (94-97) % BUN (9-20) mg/dL Creatinine (0.66-1.25) mg/dL Glucose (74-99) mg/dL POC Glucose (mg/dL) 122 H 133 H 150 H (75-99) mg/dL Calcium (8.4-10.2) mg/dL Phosphorus (2.5-4.5) mg/dL 05/19/17 05/19/17 05/19/17 Range/Units 20:22 21:13 21:56 WBC (3.8-10.6) k/uL RBC (4.30-5.90) m/uL Hgb (13.0-17.5) gm/dL Hct (39.0-53.0) % RDW (11.5-15.5) % Plt Count (150-450) k/uL ABG Total CO2 (19-24) mmol/L ABG O2 Saturation (94-97) % BUN (9-20) mg/dL Creatinine (0.66-1.25) mg/dL Glucose (74-99) mg/dL POC Glucose (mg/dL) 132 H 123 H 130 H (75-99) mg/dL Calcium (8.4-10.2) mg/dL Phosphorus (2.5-4.5) mg/dL 05/19/17 05/20/17 05/20/17 Range/Units 23:07 00:00 00:52 WBC (3.8-10.6) k/uL RBC (4.30-5.90) m/uL Hgb (13.0-17.5) gm/dL Hct (39.0-53.0) % RDW (11.5-15.5) % Plt Count (150-450) k/uL ABG Total CO2 (19-24) mmol/L ABG O2 Saturation (94-97) % BUN (9-20) mg/dL Creatinine (0.66-1.25) mg/dL Glucose (74-99) mg/dL POC Glucose (mg/dL) 146 H 157 H 145 H (75-99) mg/dL Calcium (8.4-10.2) mg/dL Phosphorus (2.5-4.5) mg/dL 05/20/17 05/20/17 05/20/17 Range/Units 01:56 03:01 04:03 WBC (3.8-10.6) k/uL RBC (4.30-5.90) m/uL Hgb (13.0-17.5) gm/dL Hct (39.0-53.0) % RDW (11.5-15.5) % Plt Count (150-450) k/uL ABG Total CO2 (19-24) mmol/L ABG O2 Saturation (94-97) % BUN (9-20) mg/dL Creatinine (0.66-1.25) mg/dL Glucose (74-99) mg/dL POC Glucose (mg/dL) 149 H 128 H 143 H (75-99) mg/dL Calcium (8.4-10.2) mg/dL Phosphorus (2.5-4.5) mg/dL 05/20/17 05/20/17 05/20/17 Range/Units 05:16 05:40 05:40 WBC 19.8 H (3.8-10.6) k/uL RBC 2.40 L (4.30-5.90) m/uL Hgb 7.8 L (13.0-17.5) gm/dL Hct 21.2 L (39.0-53.0) % RDW 17.6 H (11.5-15.5) % Plt Count 148 L (150-450) k/uL ABG Total CO2 (19-24) mmol/L ABG O2 Saturation (94-97) % BUN 125 H* (9-20) mg/dL Creatinine 2.87 H (0.66-1.25) mg/dL Glucose 142 H (74-99) mg/dL POC Glucose (mg/dL) 147 H (75-99) mg/dL Calcium 8.3 L (8.4-10.2) mg/dL Phosphorus 7.3 H (2.5-4.5) mg/dL 05/20/17 05/20/17 05/20/17 Range/Units 06:08 06:53 08:00 WBC (3.8-10.6) k/uL RBC (4.30-5.90) m/uL Hgb (13.0-17.5) gm/dL Hct (39.0-53.0) % RDW (11.5-15.5) % Plt Count (150-450) k/uL ABG Total CO2 (19-24) mmol/L ABG O2 Saturation (94-97) % BUN (9-20) mg/dL Creatinine (0.66-1.25) mg/dL Glucose (74-99) mg/dL POC Glucose (mg/dL) 165 H 137 H 140 H (75-99) mg/dL Calcium (8.4-10.2) mg/dL Phosphorus (2.5-4.5) mg/dL 05/20/17 05/20/17 Range/Units 09:06 10:14 WBC (3.8-10.6) k/uL RBC (4.30-5.90) m/uL Hgb (13.0-17.5) gm/dL Hct (39.0-53.0) % RDW (11.5-15.5) % Plt Count (150-450) k/uL ABG Total CO2 (19-24) mmol/L ABG O2 Saturation (94-97) % BUN (9-20) mg/dL Creatinine (0.66-1.25) mg/dL Glucose (74-99) mg/dL POC Glucose (mg/dL) 143 H 151 H (75-99) mg/dL Calcium (8.4-10.2) mg/dL Phosphorus (2.5-4.5) mg/dL Assessment and Plan Plan: Assessment: #1. Acute kidney injury secondary to ATN secondary to pneumonia and further worsened with the use of diuretics and MIC inhibitor. Patient was also hypotensive requiring vasopressors. Postvoid residual was 170. Creatinine peaked at 5.8 this admission. He was started on hemodialysis and has undergone 3 treatments so far - last HD on 05/18/17. BUN elevated which is partially related to IV steroids. He did receive a dose of IV Lasix yesterday. Creatinine up to 2.87 today. #2. Chronic kidney disease stage IIIB secondary to nephrosclerosis and diabetic kidney disease with baseline creatinine near 2. #3. Hyperkalemia secondary to acute kidney injury and metabolic acidosis. Resolved. #4. Metabolic acidosis secondary to acute kidney injury. Respiratory acidosis present as well. Improved. #5. Pneumonia, maintain on antibiotics. #6. Anemia with severe iron deficiency, status post 3 doses of IV iron. Monitor hemoglobin. #7. Hyperphosphatemia secondary to acute kidney injury. Expect improvement with dialysis. Plan: Hemodialysis today with goal 1 L ultrafiltration. Hold off on diuretics today. Maintain [place] catheter for accurate I's and os. Continue with current antihypertensives. Continue to assess on a day-to-day basis for need for renal replacement therapy. Add Renvela with meals. Start aranesp.
[2017-05-20] MEDS ORDERED: DARBEPOETIN ALFA 40 MCG/0.4 ML SYRINGE SQ SCH (11:00)
--- NOTE | 2017-05-20 11:11 | P.PN ---
Subjective Progress Note Date: 05/20/17 Principal diagnosis: Acute hypoxic respiratory failure secondary to pneumonia, congestive heart failure, and underlying COPD. A 67-year-old male patient who is being seen in consultation upon the request of Dr. Jerez for worsening shortness of breath. At the time of my evaluation , the patient was noted to be quite lethargic and somnolent. He was arousable. He had increased cough and congestion. He had diminished breath sounds throughout his lung pearson bilaterally. He was placed on oxygen at 3 L/m nasal cannula. A blood gas was ordered and it showed a pH of 7.2 with a pCO2 of 50 and a pO2 of 78 at 3 L/m nasal cannula. The patient was also found to be in acute on top of chronic renal failure with an underlying metabolic acidosis and acute hyperkalemia with a potassium level of 5.9. For that reason I made recommendations for this patient to be transferred to the intensive care unit. I was also told that the patient was having hypoglycemic events and he was placed on D5 half-normal saline at rate of 70 and an hour. This patient has history of COPD. The patient is an ex-smoker. His undergone coronary artery bypass surgery 2 years back and [facility] for underlying coronary artery disease. He is also known to have ischemic artery myopathy and has had an AICD in place. He suffers from chronic renal failure. He has hypertension and hyperlipidemia and diabetes mellitus. He presented to the hospital because of increased cough congestion and worsening shortness of breath. No major swelling in lower extremities. No orthopnea. No peripheral edema. His white cell count was nonelevated. His hemoglobin was low and the patient has chronic anemia with a hemoglobin of 8.3-8.4 and he was given IV iron. He was being diuresis with IV Lasix and diuretics got placed on hold as the patient developed an acute on top of chronic renal failure. The patient is also covered with broad-spectrum antibiotics and is currently on IV Fortaz. On 05/14/2017 I'm seeing this patient for a follow-up. The patient is quite lethargic and somnolent and he still continues to have significant limitations level of consciousness. Overnight he was also agitated and confused and he had required a dose of Ativan 1 mg which controlled his agitation. Overnight he was also kept on a BiPAP at a pressure of 12/5 cm of water and FiO2 of 40%. He continues to be oliguric. His renal function is progressively getting worse in his creatinine is up to 5.8. He was started on a bicarb drip yesterday and his serum bicarb is up to 17 and he has an anion gap of 17. The patient's chest x- ray from today showing multilobar pneumonia. A CAT scan of the chest was also done yesterday that showed bilateral pneumonia with airspace disease in the left upper lobe and some minimal airspace disease present in the right lung base. He has a weak cough. He is having difficulties in breathing and up his rest or secretions. His was unable to swallow today due to his marked diminishment in level of consciousness. And based on all this, I made decision to intubate the patient and place him on a mechanical ventilator. I also contacted nephrology and the patient is being considered for hemodialysis today. He is diabetic. His blood sugars have been within the hypoglycemic range and his most recent blood sugar is 163. He remains on D5 with 3 A of bicarb at the rate of 75 mL an hour. On 05/15/2017 the patient is being seen in follow-up in the intensive care unit. As mentioned, the patient was intubated and placed on a mechanical ventilator. This morning his well sedated and is calm and comfortable on Diprivan running at 50 mics. He is also on assist control mode of ventilation at the rate of 24, tidal volume of 500, FiO2 of 60% and a PEEP of 5. Chest x- ray from this morning shows adequate positioning of the orotracheal and orogastric tube. There is some atelectatic changes and left lung base. Overall the aeration is improved. The patient had a bronchoscopy yesterday and the bronchial lavage has been sent for microbial analysis and the results are still pending for now. Meanwhile he is on a broad-spectrum antibiotic coverage including a combination of cefepime, Levaquin and vancomycin. No fever. No hypotension. No chills. The patient is producing diminished urine output and he is still in acute kidney injury. A dialysis catheter was inserted yesterday and received his first session of dialysis yesterday. No volume was taken off and the patient had strict dialysis. The patient is improving in terms of his metabolic derangements. In fact on today's blood gases having a component of acute Minnie alkalosis with a pH of 7.5 and a pCO2 of 31 and pO2 of 98. As for his serum bicarb, there is up to 22 and the creatinine is down to 4.12. The patient is on a sliding scale insulin coverage for blood sugar control. He was having issues with elevated blood pressure post intubation. Currently is on a clevidipine running at 1 mg an hour and his blood pressure is under good control. On 05/16/2017 the patient is being seen in follow-up in the intensive care unit. The patient remains intubated on a mechanical ventilator. The morning vent setting showed an assist-control mode at the rate of 20, tidal volume of 450, FiO2 of 60% and PEEP of 5. Morning blood gases showed a pH of 7.45 with a pCO2 of 36 and pO2 46. Based on this the FiO2 was gradually wean down to 50% and hopefully down to 40%. Chest x-ray shows worsening of the right the pulmonary infiltrates especially on the left. ET tube is in a good location. Bronchoscopy was done and the bronchioloalveolar lavage has not shown any microbial growth. Meanwhile the patient remains on a broad-spectrum antibiotics and the patient is currently on a combination of cefepime and Levaquin and vancomycin. Hemodynamically he is doing well. He is on no pressors. In fact he was requiring clevidipine drip for blood pressure control. His blood pressure is controlled on 2 mg of clevidipine drip. He underwent dialysis yesterday without ultrafiltration. His creatinine is down to 2.85 and the patient is producing urine and order of 50-75 mL an hour. His urine output is improved. I'm not sure if he is going to require dialysis tomorrow. Discussed the case with the nephrology. Would like to give him a dose of Lasix to augment his urine output and he will be receiving 60 mg IV push. The patient is still sedated on Diprivan. Diprivan is running at 50 mics. He can still wake himself up through the sedation. He is moving all 4 extremities. His sedation has been titrated on Diprivan at times at is being brought up to 60 mics. The patient's cardiac ventricular paced. He is tolerating his tube feeds. He is on insulin drip running at 5 units an hour. He is still on a bronchodilators and systemic steroids for his COPD exacerbation. No other significant events overnight. Reevaluated today on 05/17/2017, patient remains on mechanical ventilation, presently a tidal volume of 450 assist control rate of 20 FiO2 is 45% and PEEP is 5. ABG showed a pO2 of 93 pCO2 of 38 pH of 7.41. Chest x-ray was reviewed, there is evidence of diffuse interstitial opacities and airspace disease bilaterally more so in the left perihilar area I believe the findings are mostly findings of pneumonia and congestive heart failure. His bronchoscopy has been nondiagnostic. Patient remains on broad-spectrum antibiotics in the form of cefepime and Levaquin as well as vancomycin. Patient is hemodynamically stable, not requiring any drips, he is however on clevidipine for elevated blood pressure. CBC showed normal WBC count hemoglobin is 7.2 BUN is 81 creatinine 2.90. Urine output seems to be adequate. And improving. Patient is not requiring dialysis at this point. Patient remains on propofol for sedation. He is also on nutritional support via enteral feeding. Remains on bronchodilators, remains on insulin drip. Reevaluated today on 05/18/2017, patient remains on mechanical ventilation, remains on the same ventilator settings as noted above. Patient was taken off sedation, but does not seem to be appropriate, confused, does not seem to follow any instructions. Patient does not seem to be in distress, however he remains on assist control mode of mechanical ventilation, and his chest x-ray continues to show air space disease mostly in the left perihilar area and left lower lobe. I believe the patient has ongoing pneumonia although his bronchoscopy was nondiagnostic. His congestive heart failure seems to have improved. Patient remains on clevidipine for elevated blood pressure. And that is being adjusted by cardiology on the case. WBC count is 11.9 hemoglobin is 7.4. ABG showed a pO2 of 78 pCO2 of 38 pH of 7.41 renal profile remains abnormal with BUN of 102 creatinine of 3.10. is at bedside, and I discussed his condition with the , also recommended CT of the brain because of his mental status, and it showed no specific abnormality except for chronic sinusitis and mastoiditis. Reevaluated today on 05/19/2017, patient remains on mechanical ventilation, however off sedation, and his mental status significantly improved over the last 24 hours. Patient is following simple instructions like squeezing hands, wiggling toes, and seems to be comprehending or what he is being controlled. Patient was given a trial of weaning using pressure support and CPAP, and he was noted to do quite well. ABG done on pressure support of 8 and CPAP, showed excellent gases with pO2 of 105 pCO2 of 36 pH of 7.44. His basic metabolic profile was also reviewed. BUN is down to 94 creatinine is down to 2.60, patient was dialyzed yesterday. Hemoglobin is 7.6 today. Patient has clearly acute kidney injury on chronic kidney disease. 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 Baseline creatinine is about 2.0. Urine output remains marginal roughly about 30-50 an hour. Patient remains off pressors. And his tube feeding via nasogastric tube was placed on hold earlier. Chest x-ray continues to show small left basilar consolidation and pulmonary vascular congestion. Reevaluated today on 05/20/2017, patient was extubated yesterday, and he tolerated the extubation quite well so far over the last 24 hours. Patient is relatively asymptomatic, remains on nasal cannula, blood pressure remains significantly elevated requiring multiple medications to lower the blood pressure down, chest x-ray is showing resolution of the previous left lower lobe infiltrate, and definite improvement in his overall fluid status.patient is still being followed by nephrology for his acute kidney injury on chronic kidney disease. Still planning to undergo at least one more dialysis today.goal is 1 L of ultrafiltration today. And his diuretics were placed on hold.WBC count today is 19.8 hemoglobin is 7.8.BUN is 125 creatinine is 2.87 Objective - Vital Signs Vital signs: Vital Signs Temp 98.4 F 05/20/17 08:00 Pulse 59 L 05/20/17 10:00 Resp 16 05/20/17 10:00 BP 146/50 05/20/17 10:00 Pulse Ox 98 05/20/17 10:00 Intake & Output 05/19/17 05/20/17 05/20/17 18:59 06:59 18:59 Intake Total 901.266 286.765 60 Output Total 772 590 175 Balance 129.266 -303.235 -115 Weight 92.9 kg 91.8 kg Intake: IV 330 260 60 .9 280 260 60 cefTAZidime 1 gm In 50 Sodium Chloride 0.9% 50 ml @ 100 mls/hr IVPB Q24H AGUSTIN Rx#:[id number] Intake, IV Titration 151.266 26.765 0 Amount Clevidipine Butyrate 25 25.4 mg In Empty Bag 1 bag @ 1 MG/HR 2 mls/hr IV .Q24H AGUSTIN Rx#:[id number] Insulin Regular 100 unit 74.420 26.765 0 In Sodium Chloride 0.9% 100 ml @ Per Protocol IV .Q0M AGUSTIN Rx#:[id number] Propofol 1,000 mg In 100 51.446 ml @ Titrate IV .Q0M AGUSTIN Rx#:[id number] Oral 0 Tube Feeding 420 Output: Urine 772 590 175 Other: Voiding Method Indwelling Catheter Indwelling Catheter Indwelling Catheter ABP, PAP, CO, CI - Last Documented Arterial Blood Pressure 95/90 - Exam Physical exam: Revealed a 67-year-old white male in no distress. off mechanical ventilation, on nasal cannula. Patient awake, follows simple instructions without any difficulty. neck is short and thick and supple and there is no significant neck veins. No JVDs. No goiter.Head exam was generally normal. There was no scleral icterus or corneal arcus. Mucous membranes noted to be slightly dry. Lungs sounds are diminished bilaterally , no crackles, no rhonchi, no wheezes. Cardiac exam revealed the PMI to be normally situated and sized. The rhythm was regular and no extrasystoles were noted during several minutes of auscultation. The first and second heart sounds were normal and physiologic splitting of the second heart sound was noted. There were no murmurs, rubs, clicks, or gallops. Abdominal exam revealed normal bowel sounds. The abdomen was soft, non-tender, and without masses, organomegaly, or appreciable enlargement of the abdominal aorta. Patient is obese and organs cannot be accurately palpated on today's evaluation. Examination of the extremities revealed easily palpable radial, femoral and pedal pulses. There was no cyanosis, Trace of edema noted bilaterally. Neurologically the patient is awake, follows all simple instructions , But seems to be relatively slow and generally weak. Examination of the skin revealed no evidence of significant rashes, suspicious appearing nevi or other concerning lesions. Psychiatric: Blunted affect, Otherwise unremarkable. - Labs CBC & Chem 7: 05/20/17 05:40 05/20/17 05:40 Labs: Abnormal Lab Results - Last 24 Hours (Table) 1005/19/17 05/19/17 Range/Units 11:34 12:20 12:47 WBC (3.8-10.6) k/uL RBC (4.30-5.90) m/uL Hgb (13.0-17.5) gm/dL Hct (39.0-53.0) % RDW (11.5-15.5) % Plt Count (150-450) k/uL ABG Total CO2 26 H (19-24) mmol/L ABG O2 Saturation 98.3 H (94-97) % BUN (9-20) mg/dL Creatinine (0.66-1.25) mg/dL Glucose (74-99) mg/dL POC Glucose (mg/dL) 139 H 202 H (75-99) mg/dL Calcium (8.4-10.2) mg/dL Phosphorus (2.5-4.5) mg/dL 05/19/17 05/19/17 05/19/17 Range/Units 14:05 15:08 15:40 WBC (3.8-10.6) k/uL RBC (4.30-5.90) m/uL Hgb (13.0-17.5) gm/dL Hct (39.0-53.0) % RDW (11.5-15.5) % Plt Count (150-450) k/uL ABG Total CO2 (19-24) mmol/L ABG O2 Saturation (94-97) % BUN (9-20) mg/dL Creatinine (0.66-1.25) mg/dL Glucose (74-99) mg/dL POC Glucose (mg/dL) 156 H 123 H 108 H (75-99) mg/dL Calcium (8.4-10.2) mg/dL Phosphorus (2.5-4.5) mg/dL 05/19/17 05/19/17 05/19/17 Range/Units 16:56 17:56 19:08 WBC (3.8-10.6) k/uL RBC (4.30-5.90) m/uL Hgb (13.0-17.5) gm/dL Hct (39.0-53.0) % RDW (11.5-15.5) % Plt Count (150-450) k/uL ABG Total CO2 (19-24) mmol/L ABG O2 Saturation (94-97) % BUN (9-20) mg/dL Creatinine (0.66-1.25) mg/dL Glucose (74-99) mg/dL POC Glucose (mg/dL) 122 H 133 H 150 H (75-99) mg/dL Calcium (8.4-10.2) mg/dL Phosphorus (2.5-4.5) mg/dL 05/19/17 05/19/17 05/19/17 Range/Units 20:22 21:13 21:56 WBC (3.8-10.6) k/uL RBC (4.30-5.90) m/uL Hgb (13.0-17.5) gm/dL Hct (39.0-53.0) % RDW (11.5-15.5) % Plt Count (150-450) k/uL ABG Total CO2 (19-24) mmol/L ABG O2 Saturation (94-97) % BUN (9-20) mg/dL Creatinine (0.66-1.25) mg/dL Glucose (74-99) mg/dL POC Glucose (mg/dL) 132 H 123 H 130 H (75-99) mg/dL Calcium (8.4-10.2) mg/dL Phosphorus (2.5-4.5) mg/dL 05/19/17 05/20/17 05/20/17 Range/Units 23:07 00:00 00:52 WBC (3.8-10.6) k/uL RBC (4.30-5.90) m/uL Hgb (13.0-17.5) gm/dL Hct (39.0-53.0) % RDW (11.5-15.5) % Plt Count (150-450) k/uL ABG Total CO2 (19-24) mmol/L ABG O2 Saturation (94-97) % BUN (9-20) mg/dL Creatinine (0.66-1.25) mg/dL Glucose (74-99) mg/dL POC Glucose (mg/dL) 146 H 157 H 145 H (75-99) mg/dL Calcium (8.4-10.2) mg/dL Phosphorus (2.5-4.5) mg/dL 05/20/17 05/20/17 05/20/17 Range/Units 01:56 03:01 04:03 WBC (3.8-10.6) k/uL RBC (4.30-5.90) m/uL Hgb (13.0-17.5) gm/dL Hct (39.0-53.0) % RDW (11.5-15.5) % Plt Count (150-450) k/uL ABG Total CO2 (19-24) mmol/L ABG O2 Saturation (94-97) % BUN (9-20) mg/dL Creatinine (0.66-1.25) mg/dL Glucose (74-99) mg/dL POC Glucose (mg/dL) 149 H 128 H 143 H (75-99) mg/dL Calcium (8.4-10.2) mg/dL Phosphorus (2.5-4.5) mg/dL 05/20/17 05/20/17 05/20/17 Range/Units 05:16 05:40 05:40 WBC 19.8 H (3.8-10.6) k/uL RBC 2.40 L (4.30-5.90) m/uL Hgb 7.8 L (13.0-17.5) gm/dL Hct 21.2 L (39.0-53.0) % RDW 17.6 H (11.5-15.5) % Plt Count 148 L (150-450) k/uL ABG Total CO2 (19-24) mmol/L ABG O2 Saturation (94-97) % BUN 125 H* (9-20) mg/dL Creatinine 2.87 H (0.66-1.25) mg/dL Glucose 142 H (74-99) mg/dL POC Glucose (mg/dL) 147 H (75-99) mg/dL Calcium 8.3 L (8.4-10.2) mg/dL Phosphorus 7.3 H (2.5-4.5) mg/dL 05/20/17 05/20/17 05/20/17 Range/Units 06:08 06:53 08:00 WBC (3.8-10.6) k/uL RBC (4.30-5.90) m/uL Hgb (13.0-17.5) gm/dL Hct (39.0-53.0) % RDW (11.5-15.5) % Plt Count (150-450) k/uL ABG Total CO2 (19-24) mmol/L ABG O2 Saturation (94-97) % BUN (9-20) mg/dL Creatinine (0.66-1.25) mg/dL Glucose (74-99) mg/dL POC Glucose (mg/dL) 165 H 137 H 140 H (75-99) mg/dL Calcium (8.4-10.2) mg/dL Phosphorus (2.5-4.5) mg/dL 05/20/17 05/20/17 Range/Units 09:06 10:14 WBC (3.8-10.6) k/uL RBC (4.30-5.90) m/uL Hgb (13.0-17.5) gm/dL Hct (39.0-53.0) % RDW (11.5-15.5) % Plt Count (150-450) k/uL ABG Total CO2 (19-24) mmol/L ABG O2 Saturation (94-97) % BUN (9-20) mg/dL Creatinine (0.66-1.25) mg/dL Glucose (74-99) mg/dL POC Glucose (mg/dL) 143 H 151 H (75-99) mg/dL Calcium (8.4-10.2) mg/dL Phosphorus (2.5-4.5) mg/dL Assessment and Plan Plan: 1 bilateral pneumonia worse on the left with secondary acute hypoxic respiratory failure. Patient is currently intubated on a mechanical ventilator. The bronchoscopy and bronchial lavage showed no microbial growth and the patient remains on a combination of cefepime and Levaquin and vancomycin. Awaiting final cultures from the bronchioloalveolar lavage. Meanwhile, continue the antibiotics. Continue the vent support. Drop down the FiO2 down to 45 % Sedation holiday. No plans for extubation today. 2 acute COPD exacerbation secondary to left lung pneumonia, improving . Patient was extubated yesterday uneventfully. 3 acute hypertensive reaction , we'll discontinue clevidipine, and we will adjust his oral medications accordingly. 4 diastolic congestion heart failure, ischemic cardiomyopathy and the most recent echocardiogram shows a low normal ejection fraction with an EF around 50- 55%, severely dilated LA, severe pulmonary hypertension with a PA pressure of 68 5 coronary artery disease with previous coronary artery bypass surgery 6 history of cardiac block status post pacemaker insertion/AICD insertion 7 acute on top of chronic renal failure, Being addressed by nephrology. 8 chronic renal failure with stage III to 4 chronic kidney disease 9 diabetes mellitus, currently in size Blood sugar control 10 hypertension, oral meds will be adjusted accordingly today. 11 hyperlipidemia. 12 hyperkalemia, improved 15 peripheral vascular disease 14 previous history of GI bleed 15 chronic iron deficiency 16 metabolic acidosis currently improved 17 Address nutritional support via oral intake 18 bleeding from catheter insertion site in the right femoral vein, currently inactive 19 anemia where the patient's hemoglobin is 7.8 today Recommendation: Patient was extubated uneventfully yesterday, tolerated the extubation well, we'll continue to address all the issues as noted above, discussed his condition with the cash processing specialist today, planning ultrafiltration today, we'll continue to follow closely and will continue to monitor the patient in the ICU at least over the next 24 hours. Time with Patient: Less than 30
[2017-05-20 11:13] LABS: Glucose,Whole Blood 155 mg/dL (75-99)
[2017-05-20] MEDS: SEVELAMER 800 MG TAB PO SCH ×2 (13:07→17:16)
[2017-05-20 13:15] LABS: Glucose,Whole Blood 150 mg/dL (75-99)
[2017-05-20 15:16] LABS: Glucose,Whole Blood 135 mg/dL (75-99)
[2017-05-20 16:36] LABS: Glucose,Whole Blood 134 mg/dL (75-99)
[2017-05-20] MEDS ORDERED: HEPARIN SODIUM,PORCINE 5,000 UNIT/ML 1 ML VIAL ONE (17:00)
[2017-05-20] MEDS: LEVOFLOXACIN 500MG-D5W PMX 500 MG in DEXTROSE/WATER 1 100ML.BAG IVPB SCH (17:15)
[2017-05-20] MEDS: INSULIN LISPRO (humaLOG) 300 UNIT/3 ML VIAL SQ SCH ×2 (17:44→21:19)
[2017-05-20] MEDS ORDERED: VANCOMYCIN 1,500 MG in SODIUM CHLORIDE 0.9% 250 ML IVPB ONE (18:00)
--- NOTE | 2017-05-20 18:42 | P.PN ---
Progress Note - Text Progress Note Date: 05/20/17 DATE OF SERVICE: 05/20/2017 PRESENTING COMPLAINT: shortness of breath HISTORY OF PRESENT ILLNESS: 67-year-old male presented with increasing edema decreased appetite feeling run down and shortness of breath.diagnostic imaging revealed left lower lobe pneumonia, 2 days after admission patient acutely decompensated with acute hypoxic respiratory failureand was subsequently intubated and taken to the ICU. INTERVAL HISTORY: 05/20/2017: patient seen in follow-up in the ICU, sitting up, extubated appears comfortable.Past a swallowing eval attempting to eat some soft foods. tube feedings stopped at the bedside.plans to do another round of hemodialysis today goal of 1 L of ultrafiltration. 05/19/2017: patient seen in follow-up in the ICU, remains intubated, in the middle of an SBT and sedation holiday, calmly following instructions appears comfortableawait for Dr. Ramirez to evaluate patient readiness for extubation. Current drips include tube feeding at 60 mL's an hour, clevidipine, insulin drip , propofol which is on hold, invasive lines include De Dios catheter, peripheral IVs. 05/18/2017 patient seen in follow-up in the ICU, currently intubated, in the middle of an SBT, sedation holiday, does not seem to be able to follow any instructions. No plans for extubation today. current drips include tube feeding at 60 mL an hour , clevidipine, insulin drip, titrate to effect, propofol, invasive lines include De Dios catheter peripheral IVs. Ventilator settings before meals, FiO2 45%, PEEP of 5 rate of 20. REVIEW OF SYSTEMS: unable to perform due to patient condition. CURRENT MEDICATIONS [place], aspirin, Lipitor, Coreg, ceftazidime IV piggyback,cleviprex, Plavix, Lovenox, glipizide 10 mg by mouth twice a day,hydralazine 25 mg by mouth twice a day insulin drip, levofloxacin, Ativan, Solu-Medrol 40 mg IV every 12 hours, Protonix, propofol. PHYSICAL EXAM VITAL SIGNS: Temperature 98.8, pulse 60, respiratory rate 25, blood pressure 156/47, oxygen saturation 98% on FiO2 of 45% GENERAL APPEARANCE: . sitting up in bed appears tired EYES: Pupils equal. Conjunctiva normal. NECK: JVD unable to assess Mass not palpable. RESPIRATORY: respiratory effort normal, lung sounds decreased bilaterally CARDIOVASCULAR: First and second sounds normal. Generalized edema ABDOMEN: Soft. Liver and spleen not palpable. No tenderness. No mass palpable. PSYCHIATRY: alert and oriented 3, mood and affect a little flat INVESTIGATIONS: White blood cell count 19.8, hemoglobin 7.8,BUN 125, creatinine 2.87, Accu- Cheks noted. chest x-ray: resolved previous left lower lobe infiltrate. ASSESSMENT: -Bilateral pneumonia, suspect gram-negative organism causing acute hypoxic respiratory failure,extubated,Slow to respond -Status post bronchoscopy. -Acute chronic obstructive pulmonary disease exacerbation. -Essential hypertension with urgency, slow to respond -Acute on chronic congestive heart failure probably systolic and diastolic dysfunction ejection fraction around 50%secondary to hypertensive heart disease -Severe secondary pulmonary hypertension secondary to chronic obstructive pulmonary disease. -Coronary artery disease with prior history of coronary artery bypass grafting. -AICD with pacemaker in place. -acute renal failure multifactorial probably acute tubular necrosis now hemodialysis dependent. -Chronic kidney disease probably hypertensive nephrosclerosis stage 4 from diabetic nephropathy and hypertensive nephrosclerosis, worsening -Hyperlipidemia. -Hyperkalemia, resolved -Peripheral arterial disease -Metabolic acidosis, improving -chronic kidney disease, stage IIIB secondary to nephrosclerosis and diabetic kidney disease with baseline creatinine being around 2.0 PLAN: dialysis scheduled for today with 1-2 L of ultrafiltration per nephrology.antibiotics, bronchodilators to continue,hold on diuretics for now will continue. plan of care discussed with the and patient at the bedside and they are in agreement we will follow closely. FAMILY PRESERVATION WORKER statement: Patient was seen and examined by nurse practitioner Perri Fernández and all elements of the case discussed with attending Dr. Jerez
[2017-05-20] MEDS: ATORVASTATIN 40 MG TAB PO SCH (21:13)
[2017-05-20] MEDS: cloNIDine HCL 0.2 MG TAB PO SCH (21:13)
[2017-05-20] MEDS: FOLIC ACID 1 MG TAB PO SCH (21:14)
[2017-05-20 21:21] LABS: Glucose,Whole Blood 169 mg/dL (75-99)
--- NOTE | 2017-05-20 22:56 | PN ---
PROGRESS NOTE ATTENDING NOTE: This patient was seen and examined by me. I discussed the case with my nurse practitioner, Ms. Fernández. Patient is in the ICU, extubated, sitting up, tired. He was given some applesauce. His is at the bedside. PHYSICAL EXAMINATION: Temperature 98.1, pulse 65, respiration 16, blood pressure 153/55, pulse ox 98% on 5 L. GENERAL APPEARANCE: Sitting up in bed. Awake but tired. LUNGS: Decreased breath sounds. CARDIOVASCULAR: First and second sounds normal. LABS: White count 9.8, hemoglobin 7.8, potassium 4.7, BUN 125, creatinine 2.87. ASSESSMENT: 1. Bilateral pneumonia; suspect Gram-negative organism causing acute hypoxic respiratory failure. 2. Status post bronchoscopy. 3. Chronic kidney disease, currently on hemodialysis. PLAN: Patient is being scheduled for dialysis. Looking better. Diet will be advanced as tolerated. Antibiotics to continue. Prognosis is guarded. MMODL / IJN: [id number] /
[2017-05-21 06:56] LABS: Anisocytosis Slight; CH 26.8; CHCM 30.5; HCT 23.5 % (39.0-53.0); HDW 2.38; Hypochromasia Slight; MCH 26.4 pg (25.0-35.0); MCHC 29.9 g/dL (31.0-37.0); MCV 88.3 fL (80.0-100.0); Mean Platelet Volume 8.9; RBC 2.66 m/uL (4.30-5.90); RDW 17.2 % (11.5-15.5); WBC 21.3 k/uL (3.8-10.6)
[2017-05-21 07:13] LABS: Magnesium 1.9 mg/dL (1.6-2.3); Phosphorous 5.8 mg/dL (2.5-4.5); Potassium 4.6 mmol/L (3.5-5.1)
[2017-05-21 07:44] LABS: Glucose,Whole Blood 182 mg/dL (75-99)
[2017-05-21] MEDS: IPRATROPIUM-ALBUTEROL 3 ML NEB INHALATION SCH ×4 (08:52→19:00)
[2017-05-21] MEDS: ENOXAPARIN 30 MG/0.3 ML SYRINGE SQ SCH (09:05)
[2017-05-21] MEDS: amLODIPine 5 MG TAB PO SCH (09:06)
[2017-05-21] MEDS: hydrALAZINE HCL 25 MG TAB PO SCH (09:06)
[2017-05-21] MEDS: CARVEDILOL 12.5 MG TAB PO SCH ×2 (09:06→18:21)
[2017-05-21] MEDS: INSULIN LISPRO (humaLOG) 300 UNIT/3 ML VIAL SQ SCH ×4 (09:07→22:00)
[2017-05-21] MEDS: ISOSORBIDE MONONITRATE ER 30 MG TAB.ER.24H PO SCH (09:07)
[2017-05-21] MEDS: VITAMIN E (DL,TOCOPHERYL ACET) 400 UNIT CAP PO SCH (09:07)
[2017-05-21] MEDS: methylPREDNISolone SOD SUCCI 40 MG/ML 1 ML VIAL IV SCH ×2 (09:07→21:13)
[2017-05-21] MEDS: SEVELAMER 800 MG TAB PO SCH ×3 (09:08→18:21)
[2017-05-21] MEDS: cloNIDine HCL 0.2 MG TAB PO SCH (09:08)
[2017-05-21] MEDS: ASPIRIN 81 MG PO SCH ×2 (09:08→21:13)
[2017-05-21] MEDS: FERROUS SULFATE 325 MG TAB PO SCH ×2 (09:08→18:22)
[2017-05-21] MEDS: CLOPIDOGREL 75 MG TAB PO SCH ×2 (09:08→10:24)
[2017-05-21 12:08] LABS: Glucose,Whole Blood 178 mg/dL (75-99)
[2017-05-21] MEDS: METOCLOPRAMIDE 5 MG/ML 2 ML VIAL IVP PRN ×2 (12:58→18:21)
--- NOTE | 2017-05-21 13:20 | P.PN ---
Subjective Patient is seen in follow-up for acute kidney injury on chronic kidney disease. Patient has chronic kidney disease stage IIIB secondary to nephrosclerosis and diabetic kidney disease with baseline creatinine near 2. His creatinine peaked at 5.8 this admission. Patient appeared quite lethargic on May 13 and ABG was suggestive of mixed metabolic and respiratory acidosis. He is currently in intensive care unit - extubated May 19. He was oliguric but urine output now is 30-40 mL an hour. He is off all vasopressors at this time. He is starting to tolerate oral intake. He has undergone 4 treatments of hemodialysis so far. Last hemodialysis was on May 20. Patient is currently resting in bed. Denies chest pain. Denies dyspnea. Vital signs are stable. Patient is awake. General: The patient appeared well nourished and normally developed. Intubated. HEENT: Head exam is unremarkable. Neck is without jugular venous distension. LUNGS: Scattered rhonchi. Breath sounds decreased. HEART: Rate and Rhythm are regular. First and second heart sounds normal. No murmurs, rubs or gallops. ABDOMEN: Abdominal exam reveals normal bowel sounds. Non-tender and non- distended. EXTREMITITES: 1+ edema. Objective - Vital Signs Vital signs: Vital Signs Temp 98.3 F 05/21/17 08:00 Pulse 60 05/21/17 12:00 Resp 21 05/21/17 11:00 BP 125/46 05/21/17 11:00 Pulse Ox 98 05/21/17 11:00 Intake & Output 05/20/17 05/21/17 05/21/17 18:59 06:59 18:59 Intake Total 502.3 220 140 Output Total 1550 315 273 Balance -1047.7 -95 -133 Weight 89.2 kg 89.2 kg Intake: IV 240 220 140 .9 240 220 140 Intake, IV Titration 262.3 Amount Insulin Regular 100 unit 12.3 In Sodium Chloride 0.9% 100 ml @ Per Protocol IV .Q0M [facility] Rx#:[id number] Vancomycin 1,500 mg In 250 Sodium Chloride 0.9% 250 ml @ 125 mls/hr IVPB ONCE ONE Rx#:[id number] Output: Urine 550 315 273 Other 1000 Other: Voiding Method Indwelling Catheter Indwelling Catheter Indwelling Catheter ABP, PAP, CO, CI - Last Documented Arterial Blood Pressure 95/90 - Labs CBC & Chem 7: 05/21/17 06:45 05/21/17 06:45 Labs: Abnormal Lab Results - Last 24 Hours (Table) 05/20/17 05/20/17 05/20/17 Range/Units 15:14 16:33 21:19 WBC (3.8-10.6) k/uL RBC (4.30-5.90) m/uL Hgb (13.0-17.5) gm/dL Hct (39.0-53.0) % MCHC (31.0-37.0) g/dL RDW (11.5-15.5) % Sodium (137-145) mmol/L BUN (9-20) mg/dL Creatinine (0.66-1.25) mg/dL Glucose (74-99) mg/dL POC Glucose (mg/dL) 135 H 134 H 169 H (75-99) mg/dL Calcium (8.4-10.2) mg/dL Phosphorus (2.5-4.5) mg/dL 05/21/17 05/21/17 05/21/17 Range/Units 06:45 06:45 07:42 WBC 21.3 H (3.8-10.6) k/uL RBC 2.66 L (4.30-5.90) m/uL Hgb 7.0 L* (13.0-17.5) gm/dL Hct 23.5 L (39.0-53.0) % MCHC 29.9 L (31.0-37.0) g/dL RDW 17.2 H (11.5-15.5) % Sodium 135 L (137-145) mmol/L BUN 100 H* (9-20) mg/dL Creatinine 2.20 H (0.66-1.25) mg/dL Glucose 187 H (74-99) mg/dL POC Glucose (mg/dL) 182 H (75-99) mg/dL Calcium 8.0 L (8.4-10.2) mg/dL Phosphorus 5.8 H (2.5-4.5) mg/dL 05/21/17 Range/Units 12:06 WBC (3.8-10.6) k/uL RBC (4.30-5.90) m/uL Hgb (13.0-17.5) gm/dL Hct (39.0-53.0) % MCHC (31.0-37.0) g/dL RDW (11.5-15.5) % Sodium (137-145) mmol/L BUN (9-20) mg/dL Creatinine (0.66-1.25) mg/dL Glucose (74-99) mg/dL POC Glucose (mg/dL) 178 H (75-99) mg/dL Calcium (8.4-10.2) mg/dL Phosphorus (2.5-4.5) mg/dL Assessment and Plan Plan: Assessment: #1. Acute kidney injury secondary to ATN secondary to pneumonia and further worsened with the use of diuretics and MIC inhibitor. Patient was also hypotensive requiring vasopressors. Postvoid residual was 170. Creatinine peaked at 5.8 this admission. He was started on hemodialysis and has undergone 4 treatments so far - last HD on 05/20/17. BUN elevated which is partially related to IV steroids. Hemoglobin has also been on the lower but there have been no signs of active bleeding. #2. Chronic kidney disease stage IIIB secondary to nephrosclerosis and diabetic kidney disease with baseline creatinine near 2. #3. Hyperkalemia secondary to acute kidney injury and metabolic acidosis. Resolved. #4. Metabolic acidosis secondary to acute kidney injury. Respiratory acidosis present as well. Improved. #5. Pneumonia, maintain on antibiotics. #6. Anemia with severe iron deficiency, status post 3 doses of IV iron. Monitor hemoglobin. #7. Hyperphosphatemia secondary to acute kidney injury. Plan: Recheck hemoglobin now - if less than 7, he is to get 1 unit of blood transfusion. Lasix 60 mg IV once today. Maintain De Dios catheter for accurate I's and os. Continue to assess on a day-to-day basis for need for renal replacement therapy. Maintain Renvela with meals. Maintain aranesp.
--- NOTE | 2017-05-21 13:46 | P.PN ---
Progress Note - Text Progress Note Date: 05/21/17 DATE OF SERVICE: 05/21/2017 PRESENTING COMPLAINT: shortness of breath HISTORY OF PRESENT ILLNESS: 67-year-old male presented with increasing edema decreased appetite feeling run down and shortness of breath.diagnostic imaging revealed left lower lobe pneumonia, 2 days after admission patient acutely decompensated with acute hypoxic respiratory failureand was subsequently intubated and taken to the ICU. INTERVAL HISTORY: 05/21/2017: Patient seen in follow-up in the ICU, sitting up in bed is in chair mode appears comfortable. Not talking much, had some juice. at the bedside. Hemoglobin is 7.0 this morning, blood pressure stable, not tachycardic, no increasing oxygen demand, per nephrology's note recheck and if less than 7 transfuse 1 unit. The need for Hemodialysis will be evaluated daily by nephrology. 05/20/2017: patient seen in follow-up in the ICU, sitting up, extubated appears comfortable.Past a swallowing eval attempting to eat some soft foods. tube feedings stopped at the bedside.plans to do another round of hemodialysis today goal of 1 L of ultrafiltration. 05/19/2017: patient seen in follow-up in the ICU, remains intubated, in the middle of an SBT and sedation holiday, calmly following instructions appears comfortableawait for Dr. Ramirez to evaluate patient readiness for extubation. Current drips include tube feeding at 60 mL's an hour, clevidipine, insulin drip , propofol which is on hold, invasive lines include De Dios catheter, peripheral IVs. 05/18/2017 patient seen in follow-up in the ICU, currently intubated, in the middle of an SBT, sedation holiday, does not seem to be able to follow any instructions. No plans for extubation today. current drips include tube feeding at 60 mL an hour , clevidipine, insulin drip, titrate to effect, propofol, invasive lines include De Dios catheter peripheral IVs. Ventilator settings before meals, FiO2 45%, PEEP of 5 rate of 20. REVIEW OF SYSTEMS: Done for constitutional cardiovascular GI pulmonary with relevant findings as above. CURRENT MEDICATIONS Patterson, aspirin, Lipitor, Coreg, ceftazidime IV piggyback,cleviprex, Plavix, Lovenox, glipizide 10 mg by mouth twice a day,hydralazine 25 mg by mouth twice a day insulin drip, levofloxacin, Ativan, Solu-Medrol 40 mg IV every 12 hours, Protonix, PHYSICAL EXAM VITAL SIGNS: Temperature 98.3, pulse 63, respirations 19, blood pressure 131/47, oxygen saturation 99% on 5 L high flow. GENERAL APPEARANCE: . sitting up in bed appears tired and doesn't talk much EYES: Pupils equal. Conjunctiva normal. NECK: JVD unable to assess Mass not palpable. RESPIRATORY: respiratory effort normal, lung sounds decreased bilaterally CARDIOVASCULAR: First and second sounds normal. Generalized edema ABDOMEN: Soft. Liver and spleen not palpable. No tenderness. No mass palpable. PSYCHIATRY: Answer simple straightforward questions mood and affect a little flat, doesn't talk much INVESTIGATIONS: White blood cell count 21.3, hemoglobin 7.0, sodium 135, BUN 100, reactant and 2.20, Accu-Cheks noted. ASSESSMENT: -Bilateral pneumonia, suspect gram-negative organism causing acute hypoxic respiratory failure,extubated,Slow to respond -Status post bronchoscopy. -Acute chronic obstructive pulmonary disease exacerbation. -Essential hypertension with urgency, slow to respond -Acute on chronic congestive heart failure probably systolic and diastolic dysfunction ejection fraction around 50%secondary to hypertensive heart disease -Severe secondary pulmonary hypertension secondary to chronic obstructive pulmonary disease. -Coronary artery disease with prior history of coronary artery bypass grafting. -AICD with pacemaker in place. -acute renal failure multifactorial probably acute tubular necrosis now hemodialysis dependent. -Chronic kidney disease probably hypertensive nephrosclerosis stage 4 from diabetic nephropathy and hypertensive nephrosclerosis, worsening -Hyperlipidemia. -Hyperkalemia, resolved -Peripheral arterial disease -Metabolic acidosis, improving -chronic kidney disease, stage IIIB secondary to nephrosclerosis and diabetic kidney disease with baseline creatinine being around 2.0 PLAN: Need for dialysis will be evaluated on a day by day basis. Continue antibiotics , bronchodilators, 60 mg of IV Lasix once today. Rechecking hemoglobin if less than 7 transfuse 1 unit of packed red cells. plan of care discussed with the and patient at the bedside and they are in agreement we will follow closely. [employer] statement: Patient was seen and examined by nurse practitioner Perri Fernández and all elements of the case discussed with attending Dr. Jerez
[2017-05-21 14:17] LABS: Anisocytosis Slight; CH 26.6; CHCM 30.7; HCT 24.2 % (39.0-53.0); HGB 7.3 gm/dL (13.0-17.5); Hypochromasia Slight; MCH 26.1 pg (25.0-35.0); MCHC 30.1 g/dL (31.0-37.0); MCV 86.7 fL (80.0-100.0); Mean Platelet Volume 8.5; RBC 2.79 m/uL (4.30-5.90); RDW 16.2 % (11.5-15.5)
[2017-05-21 14:19] LABS: WBC 25.8 k/uL (3.8-10.6)
[2017-05-21] MEDS ORDERED: FUROSEMIDE 10 MG/ML 10 ML VIAL IV STA (14:26)
--- NOTE | 2017-05-21 15:14 | P.PN ---
Subjective Progress Note Date: 05/21/17 Principal diagnosis: Acute hypoxic respiratory failure secondary to pneumonia, congestive heart failure, and underlying COPD. A 67-year-old male patient who is being seen in consultation upon the request of Dr. Jerez for worsening shortness of breath. At the time of my evaluation , the patient was noted to be quite lethargic and somnolent. He was arousable. He had increased cough and congestion. He had diminished breath sounds throughout his lung pearson bilaterally. He was placed on oxygen at 3 L/m nasal cannula. A blood gas was ordered and it showed a pH of 7.2 with a pCO2 of 50 and a pO2 of 78 at 3 L/m nasal cannula. The patient was also found to be in acute on top of chronic renal failure with an underlying metabolic acidosis and acute hyperkalemia with a potassium level of 5.9. For that reason I made recommendations for this patient to be transferred to the intensive care unit. I was also told that the patient was having hypoglycemic events and he was placed on D5 half-normal saline at rate of 70 and an hour. This patient has history of COPD. The patient is an ex-smoker. His undergone coronary artery bypass surgery 2 years back and [facility] for underlying coronary artery disease. He is also known to have ischemic artery myopathy and has had an AICD in place. He suffers from chronic renal failure. He has hypertension and hyperlipidemia and diabetes mellitus. He presented to the hospital because of increased cough congestion and worsening shortness of breath. No major swelling in lower extremities. No orthopnea. No peripheral edema. His white cell count was nonelevated. His hemoglobin was low and the patient has chronic anemia with a hemoglobin of 8.3-8.4 and he was given IV iron. He was being diuresis with IV Lasix and diuretics got placed on hold as the patient developed an acute on top of chronic renal failure. The patient is also covered with broad-spectrum antibiotics and is currently on IV Fortaz. On 05/14/2017 I'm seeing this patient for a follow-up. The patient is quite lethargic and somnolent and he still continues to have significant limitations level of consciousness. Overnight he was also agitated and confused and he had required a dose of Ativan 1 mg which controlled his agitation. Overnight he was also kept on a BiPAP at a pressure of 12/5 cm of water and FiO2 of 40%. He continues to be oliguric. His renal function is progressively getting worse in his creatinine is up to 5.8. He was started on a bicarb drip yesterday and his serum bicarb is up to 17 and he has an anion gap of 17. The patient's chest x- ray from today showing multilobar pneumonia. A CAT scan of the chest was also done yesterday that showed bilateral pneumonia with airspace disease in the left upper lobe and some minimal airspace disease present in the right lung base. He has a weak cough. He is having difficulties in breathing and up his rest or secretions. His was unable to swallow today due to his marked diminishment in level of consciousness. And based on all this, I made decision to intubate the patient and place him on a mechanical ventilator. I also contacted nephrology and the patient is being considered for hemodialysis today. He is diabetic. His blood sugars have been within the hypoglycemic range and his most recent blood sugar is 163. He remains on D5 with 3 A of bicarb at the rate of 75 mL an hour. On 05/15/2017 the patient is being seen in follow-up in the intensive care unit. As mentioned, the patient was intubated and placed on a mechanical ventilator. This morning his well sedated and is calm and comfortable on Diprivan running at 50 mics. He is also on assist control mode of ventilation at the rate of 24, tidal volume of 500, FiO2 of 60% and a PEEP of 5. Chest x- ray from this morning shows adequate positioning of the orotracheal and orogastric tube. There is some atelectatic changes and left lung base. Overall the aeration is improved. The patient had a bronchoscopy yesterday and the bronchial lavage has been sent for microbial analysis and the results are still pending for now. Meanwhile he is on a broad-spectrum antibiotic coverage including a combination of cefepime, Levaquin and vancomycin. No fever. No hypotension. No chills. The patient is producing diminished urine output and he is still in acute kidney injury. A dialysis catheter was inserted yesterday and received his first session of dialysis yesterday. No volume was taken off and the patient had strict dialysis. The patient is improving in terms of his metabolic derangements. In fact on today's blood gases having a component of acute Minnie alkalosis with a pH of 7.5 and a pCO2 of 31 and pO2 of 98. As for his serum bicarb, there is up to 22 and the creatinine is down to 4.12. The patient is on a sliding scale insulin coverage for blood sugar control. He was having issues with elevated blood pressure post intubation. Currently is on a clevidipine running at 1 mg an hour and his blood pressure is under good control. On 05/16/2017 the patient is being seen in follow-up in the intensive care unit. The patient remains intubated on a mechanical ventilator. The morning vent setting showed an assist-control mode at the rate of 20, tidal volume of 450, FiO2 of 60% and PEEP of 5. Morning blood gases showed a pH of 7.45 with a pCO2 of 36 and pO2 46. Based on this the FiO2 was gradually wean down to 50% and hopefully down to 40%. Chest x-ray shows worsening of the right the pulmonary infiltrates especially on the left. ET tube is in a good location. Bronchoscopy was done and the bronchioloalveolar lavage has not shown any microbial growth. Meanwhile the patient remains on a broad-spectrum antibiotics and the patient is currently on a combination of cefepime and Levaquin and vancomycin. Hemodynamically he is doing well. He is on no pressors. In fact he was requiring clevidipine drip for blood pressure control. His blood pressure is controlled on 2 mg of clevidipine drip. He underwent dialysis yesterday without ultrafiltration. His creatinine is down to 2.85 and the patient is producing urine and order of 50-75 mL an hour. His urine output is improved. I'm not sure if he is going to require dialysis tomorrow. Discussed the case with the nephrology. Would like to give him a dose of Lasix to augment his urine output and he will be receiving 60 mg IV push. The patient is still sedated on Diprivan. Diprivan is running at 50 mics. He can still wake himself up through the sedation. He is moving all 4 extremities. His sedation has been titrated on Diprivan at times at is being brought up to 60 mics. The patient's cardiac ventricular paced. He is tolerating his tube feeds. He is on insulin drip running at 5 units an hour. He is still on a bronchodilators and systemic steroids for his COPD exacerbation. No other significant events overnight. Reevaluated today on 05/17/2017, patient remains on mechanical ventilation, presently a tidal volume of 450 assist control rate of 20 FiO2 is 45% and PEEP is 5. ABG showed a pO2 of 93 pCO2 of 38 pH of 7.41. Chest x-ray was reviewed, there is evidence of diffuse interstitial opacities and airspace disease bilaterally more so in the left perihilar area I believe the findings are mostly findings of pneumonia and congestive heart failure. His bronchoscopy has been nondiagnostic. Patient remains on broad-spectrum antibiotics in the form of cefepime and Levaquin as well as vancomycin. Patient is hemodynamically stable, not requiring any drips, he is however on clevidipine for elevated blood pressure. CBC showed normal WBC count hemoglobin is 7.2 BUN is 81 creatinine 2.90. Urine output seems to be adequate. And improving. Patient is not requiring dialysis at this point. Patient remains on propofol for sedation. He is also on nutritional support via enteral feeding. Remains on bronchodilators, remains on insulin drip. Reevaluated today on 05/18/2017, patient remains on mechanical ventilation, remains on the same ventilator settings as noted above. Patient was taken off sedation, but does not seem to be appropriate, confused, does not seem to follow any instructions. Patient does not seem to be in distress, however he remains on assist control mode of mechanical ventilation, and his chest x-ray continues to show air space disease mostly in the left perihilar area and left lower lobe. I believe the patient has ongoing pneumonia although his bronchoscopy was nondiagnostic. His congestive heart failure seems to have improved. Patient remains on clevidipine for elevated blood pressure. And that is being adjusted by cardiology on the case. WBC count is 11.9 hemoglobin is 7.4. ABG showed a pO2 of 78 pCO2 of 38 pH of 7.41 renal profile remains abnormal with BUN of 102 creatinine of 3.10. is at bedside, and I discussed his condition with the , also recommended CT of the brain because of his mental status, and it showed no specific abnormality except for chronic sinusitis and mastoiditis. Reevaluated today on 05/19/2017, patient remains on mechanical ventilation, however off sedation, and his mental status significantly improved over the last 24 hours. Patient is following simple instructions like squeezing hands, wiggling toes, and seems to be comprehending or what he is being controlled. Patient was given a trial of weaning using pressure support and CPAP, and he was noted to do quite well. ABG done on pressure support of 8 and CPAP, showed excellent gases with pO2 of 105 pCO2 of 36 pH of 7.44. His basic metabolic profile was also reviewed. BUN is down to 94 creatinine is down to 2.60, patient was dialyzed yesterday. Hemoglobin is 7.6 today. Patient has clearly acute kidney injury on chronic kidney disease. 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 Baseline creatinine is about 2.0. Urine output remains marginal roughly about 30-50 an hour. Patient remains off pressors. And his tube feeding via nasogastric tube was placed on hold earlier. Chest x-ray continues to show small left basilar consolidation and pulmonary vascular congestion. Reevaluated today on 05/20/2017, patient was extubated yesterday, and he tolerated the extubation quite well so far over the last 24 hours. Patient is relatively asymptomatic, remains on nasal cannula, blood pressure remains significantly elevated requiring multiple medications to lower the blood pressure down, chest x-ray is showing resolution of the previous left lower lobe infiltrate, and definite improvement in his overall fluid status.patient is still being followed by nephrology for his acute kidney injury on chronic kidney disease. Still planning to undergo at least one more dialysis today.goal is 1 L of ultrafiltration today. And his diuretics were placed on hold.WBC count today is 19.8 hemoglobin is 7.8.BUN is 125 creatinine is 2.87 Reevaluated today on 05/21/2017, patient continues to tolerate the extubation for the last 2 days, doing relatively well, better than expected. He remained generally weak, has a bit of a blunted affect, but in no form of distress WBC count seems to be on the rise up to 25.8 hemoglobin is 7.3 renal profile was noted with BUN of 100 creatinine of 2.2. Chest x-ray yesterday showed resolution of previous left lower lobe pneumonia. Objective - Vital Signs Vital signs: Vital Signs Temp 98.2 F 05/21/17 12:00 Pulse 60 05/21/17 15:00 Resp 17 05/21/17 15:00 BP 129/53 05/21/17 15:00 Pulse Ox 100 05/21/17 15:00 Intake & Output 1005/21/17 05/21/17 18:59 06:59 18:59 Intake Total 502.3 220 160 Output Total 1550 315 288 Balance -1047.7 -95 -128 Weight 89.2 kg 89.2 kg Intake: IV 240 220 160 .9 240 220 160 Intake, IV Titration 262.3 Amount Insulin Regular 100 unit 12.3 In Sodium Chloride 0.9% 100 ml @ Per Protocol IV .Q0M [facility] Rx#:[id number] Vancomycin 1,500 mg In 250 Sodium Chloride 0.9% 250 ml @ 125 mls/hr IVPB ONCE ONE Rx#:[id number] Output: Urine 550 315 288 Other 1000 Other: Voiding Method Indwelling Catheter Indwelling Catheter Indwelling Catheter # Emeses 1 ABP, PAP, CO, CI - Last Documented Arterial Blood Pressure 95/90 - Exam Physical exam: Revealed a 67-year-old white male in no distress. off mechanical ventilation, on nasal cannula. Patient awake, follows simple instructions without any difficulty. neck is short and thick and supple and there is no significant neck veins. No JVDs. No goiter.Head exam was generally normal. There was no scleral icterus or corneal arcus. Mucous membranes noted to be slightly dry. Lungs sounds are diminished bilaterally , no crackles, no rhonchi, no wheezes. Cardiac exam revealed the PMI to be normally situated and sized. The rhythm was regular and no extrasystoles were noted during several minutes of auscultation. The first and second heart sounds were normal and physiologic splitting of the second heart sound was noted. There were no murmurs, rubs, clicks, or gallops. Abdominal exam revealed normal bowel sounds. The abdomen was soft, non-tender, and without masses, organomegaly, or appreciable enlargement of the abdominal aorta. Patient is obese and organs cannot be accurately palpated on today's evaluation. Examination of the extremities revealed easily palpable radial, femoral and pedal pulses. There was no cyanosis, Trace of edema noted bilaterally. Neurologically the patient is awake, follows all simple instructions , But seems to be relatively slow and generally weak. Examination of the skin revealed no evidence of significant rashes, suspicious appearing nevi or other concerning lesions. Psychiatric: Blunted affect, Otherwise unremarkable. - Labs CBC & Chem 7: 05/21/17 13:48 05/21/17 06:45 Labs: Abnormal Lab Results - Last 24 Hours (Table) 05/20/17 05/20/17 05/20/17 Range/Units 15:14 16:33 21:19 WBC (3.8-10.6) k/uL RBC (4.30-5.90) m/uL Hgb (13.0-17.5) gm/dL Hct (39.0-53.0) % MCHC (31.0-37.0) g/dL RDW (11.5-15.5) % Sodium (137-145) mmol/L BUN (9-20) mg/dL Creatinine (0.66-1.25) mg/dL Glucose (74-99) mg/dL POC Glucose (mg/dL) 135 H 134 H 169 H (75-99) mg/dL Calcium (8.4-10.2) mg/dL Phosphorus (2.5-4.5) mg/dL 05/21/17 05/21/17 05/21/17 Range/Units 06:45 06:45 07:42 WBC 21.3 H (3.8-10.6) k/uL RBC 2.66 L (4.30-5.90) m/uL Hgb 7.0 L* (13.0-17.5) gm/dL Hct 23.5 L (39.0-53.0) % MCHC 29.9 L (31.0-37.0) g/dL RDW 17.2 H (11.5-15.5) % Sodium 135 L (137-145) mmol/L BUN 100 H* (9-20) mg/dL Creatinine 2.20 H (0.66-1.25) mg/dL Glucose 187 H (74-99) mg/dL POC Glucose (mg/dL) 182 H (75-99) mg/dL Calcium 8.0 L (8.4-10.2) mg/dL Phosphorus 5.8 H (2.5-4.5) mg/dL 05/21/17 05/21/17 Range/Units 12:06 13:48 WBC 25.8 H* (3.8-10.6) k/uL RBC 2.79 L (4.30-5.90) m/uL Hgb 7.3 L (13.0-17.5) gm/dL Hct 24.2 L (39.0-53.0) % MCHC 30.1 L (31.0-37.0) g/dL RDW 16.2 H (11.5-15.5) % Sodium (137-145) mmol/L BUN (9-20) mg/dL Creatinine (0.66-1.25) mg/dL Glucose (74-99) mg/dL POC Glucose (mg/dL) 178 H (75-99) mg/dL Calcium (8.4-10.2) mg/dL Phosphorus (2.5-4.5) mg/dL Assessment and Plan Plan: 1 bilateral pneumonia worse on the left with secondary acute hypoxic respiratory failure. Resolved. 2 acute COPD exacerbation secondary to left lung pneumonia, improving . Patient was extubated 2 days ago. 3 acute hypertensive reaction , responding well to oral medications 4 diastolic congestion heart failure, ischemic cardiomyopathy and the most recent echocardiogram shows a low normal ejection fraction with an EF around 50- 55%, severely dilated LA, severe pulmonary hypertension with a PA pressure of 68 5 coronary artery disease with previous coronary artery bypass surgery 6 history of cardiac block status post pacemaker insertion/AICD insertion 7 acute on top of chronic renal failure, Being addressed by nephrology. 8 chronic renal failure with stage III to 4 chronic kidney disease 9 diabetes mellitus, currently in size Blood sugar control 10 hypertension, oral meds will be adjusted accordingly today. 11 hyperlipidemia. 12 hyperkalemia, improved 15 peripheral vascular disease 14 previous history of GI bleed 15 chronic iron deficiency 16 metabolic acidosis currently improved 17 Address nutritional support via oral intake 18 bleeding from catheter insertion site in the right femoral vein, currently inactive 19 anemia where the patient's hemoglobin is 7.8 today Recommendation: Patient was extubated uneventfully 2 days ago, seems to be tolerating the extubation well, however the patient remains tenuous, and I will keep him in the ICU. Time with Patient: Less than 30
[2017-05-21 16:24] LABS: Glucose,Whole Blood 162 mg/dL (75-99)
--- NOTE | 2017-05-21 17:32 | PN ---
PROGRESS NOTE DATE OF SERVICE: May 21, 2017. ATTENDING NOTE: This patient was seen and examined by me. I discussed with nurse practitioner, Ms. Fernández. The patient doing better. Propped up in bed, on 5 L of nasal cannula. Ate a little bit. at the bedside. EXAM: LUNGS: Decreased breath sounds. On examination afebrile, pulse 62, respiration 17, blood pressure 140/60, pulse 100% on 5 L, lungs decreased breath sounds. Tired appearing but awake answering questions. INVESTIGATIONS: White count 25.8, hemoglobin 7.3. ASSESSMENT: 1. Bilateral pneumonia suspect gram-negative organism causing acute hypoxic respiratory failure. Extubated. Improving slowly. 2. Acute chronic obstructive pulmonary disease exacerbation. 3. Essential hypertension urgency. The patient is now off . 4. Acute renal failure. PLAN: Continue current medication and treatment plan. Dialysis is being directed per Nephrology. Patient is slowly improving. They did order one 60 mg dose of Lasix. The patient is on De Dios catheter. Strict I and Os. Prognosis is guarded. MMODL / IJN: [id number] /
[2017-05-21] MEDS ORDERED: NOREPINEPHRIN 4 MG-0.9% NS PMX 4 MG/250 ML ML IV SCH (20:45)
[2017-05-21] MEDS: FOLIC ACID 1 MG TAB PO SCH (21:13)
[2017-05-21] MEDS: ATORVASTATIN 40 MG TAB PO SCH (21:13)
[2017-05-21 22:00] LABS: Glucose,Whole Blood 156 mg/dL (75-99)
[2017-05-22] MEDS: cloNIDine HCL 0.2 MG TAB PO SCH ×2 (04:20→11:11)
[2017-05-22] MEDS: hydrALAZINE HCL 25 MG TAB PO SCH ×2 (04:20→09:54)
[2017-05-22 05:19] LABS: CHCM 30.5; MCH 25.9 pg (25.0-35.0); MCHC 29.3 g/dL (31.0-37.0); MCV 88.4 fL (80.0-100.0); RBC 2.26 m/uL (4.30-5.90); WBC 17.7 k/uL (3.8-10.6)
[2017-05-22 05:20] LABS: Anisocytosis Slight; CH 26.9; HDW 2.35; Hypochromasia Slight; Mean Platelet Volume 8.8; RDW 16.9 % (11.5-15.5)
[2017-05-22 05:21] LABS: HGB 5.8 gm/dL (13.0-17.5)
[2017-05-22 05:59] LABS: Calcium 8.1 mg/dL (8.4-10.2); Potassium 4.8 mmol/L (3.5-5.1)
--- NOTE | 2017-05-22 06:52 | XR ---
EXAMINATION TYPE: XR chest 1V portable DATE OF EXAM: 05/22/2017 HISTORY: PNM, CHF, recent intubation. REFERENCE: Previous study dated 05/20/2017. FINDINGS: There has been a previous midline sternotomy. There is a multilead pacing device in place o n the left. The heart is mildly enlarged. There is some atelectasis or consolidation in the left midlung. There i s vascular congestion without viraj edema. Pleural spaces appear clear. IMPRESSION: 1. MILD CARDIOMEGALY. 2. MINIMAL AIRSPACE DISEASE, LEFT MIDLUNG. 3. VASCULAR CONGESTION.
[2017-05-22 07:43] LABS: Glucose,Whole Blood 193 mg/dL (75-99)
[2017-05-22] MEDS: SEVELAMER 800 MG TAB PO SCH ×3 (08:15→17:22)
[2017-05-22] MEDS: INSULIN LISPRO (humaLOG) 300 UNIT/3 ML VIAL SQ SCH ×4 (08:15→22:04)
[2017-05-22] MEDS: FERROUS SULFATE 325 MG TAB PO SCH ×2 (08:16→17:22)
[2017-05-22] MEDS: CARVEDILOL 12.5 MG TAB PO SCH ×2 (08:18→17:23)
[2017-05-22 08:22] LABS: CHCM 28.7; HDW 2.34; Hypochromasia Marked; MCH 25.5 pg (25.0-35.0); MCHC 28.2 g/dL (31.0-37.0); MCV 90.5 fL (80.0-100.0); Mean Platelet Volume 8.2; RBC 2.32 m/uL (4.30-5.90); RDW 15.8 % (11.5-15.5); WBC 18.6 k/uL (3.8-10.6)
[2017-05-22 08:23] LABS: HGB 5.9 gm/dL (13.0-17.5)
--- NOTE | 2017-05-22 08:52 | P.PN ---
Subjective Progress Note Date: 05/22/17 Principal diagnosis: Patient is seen in follow-up for acute kidney injury requiring dialysis. He was started on dialysis with a Joe catheter in his groin. He was dialyzed 2 days ago. He is also known with chronic kidney disease. Patient has chronic kidney disease stage IIIB secondary to nephrosclerosis and diabetic kidney disease with baseline creatinine near 2. He came in with pneumonia and was intubated and subsequently extubated. Currently on nasal cannula. Significant his hemoglobin went down without any obvious bleeding. Hemoglobin is in the 5.9 range. His creatinine peaked at 5.8 this admission. He was extubated May 19. Currently he remains oliguric. He has a De Dios catheter. He is on vancomycin. Levels in the 20s range which likely is causing some amount of nephrotoxicity. Appetite is poor. Denies any shortness of breath or cough. No dizziness. Last night his blood pressure was supposedly low but it has not been documented to be less than 107. Last hemodialysis was on May 20. Patient is currently resting in bed. Vital signs are stable. Patient is awake. General: The patient appeared well nourished and normally developed. Intubated. HEENT: Head exam is unremarkable. Neck is without jugular venous distension. LUNGS: Scattered rhonchi. Breath sounds decreased. HEART: Rate and Rhythm are regular. First and second heart sounds normal. No murmurs, rubs or gallops. ABDOMEN: Abdominal exam reveals normal bowel sounds. Non-tender and non- distended. EXTREMITITES: 1+ edema. Objective - Vital Signs Vital signs: Vital Signs Temp 97.9 F 05/22/17 08:00 Pulse 60 05/22/17 08:00 Resp 22 05/22/17 08:00 BP 125/52 05/22/17 08:00 Pulse Ox 95 05/22/17 08:00 Intake & Output 05/21/17 05/22/17 05/22/17 18:59 06:59 18:59 Intake Total 240 240 40 Output Total 428 310 70 Balance -188 -70 -30 Weight 89.2 kg 88.8 kg Intake: IV 240 240 40 0.9 240 240 40 Output: Urine 428 310 70 Other: Voiding Method Indwelling Catheter Indwelling Catheter # Emeses 1 1 ABP, PAP, CO, CI - Last Documented Arterial Blood Pressure 95/90 Vital signs are stable. Patient is awake. Not on any inotropes currently. General: The patient appeared well nourished and normally developed. On nasal cannula oxygen HEENT: Head exam is unremarkable. Neck is without jugular venous distension. LUNGS: Scattered wheezing. Breath sounds decreased. HEART: Rate and Rhythm are regular. First and second heart sounds normal. No murmurs, rubs or gallops. ABDOMEN: Abdominal exam reveals normal bowel sounds. Non-tender and but mildly distended. EXTREMITITES: 2+ edema. CONTINUITY MANAGER :Neurologically awake alert oriented no focal motor deficit. - Labs CBC & Chem 7: 05/22/17 08:05 05/22/17 04:53 Labs: Abnormal Lab Results - Last 24 Hours (Table) 05/21/17 05/21/17 05/21/17 Range/Units 12:06 13:48 16:22 WBC 25.8 H* (3.8-10.6) k/uL RBC 2.79 L (4.30-5.90) m/uL Hgb 7.3 L (13.0-17.5) gm/dL Hct 24.2 L (39.0-53.0) % MCHC 30.1 L (31.0-37.0) g/dL RDW 16.2 H (11.5-15.5) % Plt Count (150-450) k/uL Sodium (137-145) mmol/L Carbon Dioxide (22-30) mmol/L BUN (9-20) mg/dL Creatinine (0.66-1.25) mg/dL Glucose (74-99) mg/dL POC Glucose (mg/dL) 178 H 162 H (75-99) mg/dL Calcium (8.4-10.2) mg/dL Phosphorus (2.5-4.5) mg/dL 05/21/17 05/22/17 05/22/17 Range/Units 21:58 04:53 04:53 WBC 17.7 H (3.8-10.6) k/uL RBC 2.26 L (4.30-5.90) m/uL Hgb 5.8 L* D (13.0-17.5) gm/dL Hct 20.0 L* (39.0-53.0) % MCHC 29.3 L (31.0-37.0) g/dL RDW 16.9 H (11.5-15.5) % Plt Count 122 L (150-450) k/uL Sodium 134 L (137-145) mmol/L Carbon Dioxide 21 L (22-30) mmol/L BUN 127 H* (9-20) mg/dL Creatinine 2.70 H (0.66-1.25) mg/dL Glucose 178 H (74-99) mg/dL POC Glucose (mg/dL) 156 H (75-99) mg/dL Calcium 8.1 L (8.4-10.2) mg/dL Phosphorus 7.0 H (2.5-4.5) mg/dL 05/22/17 05/22/17 Range/Units 07:41 08:05 WBC 18.6 H (3.8-10.6) k/uL RBC 2.32 L (4.30-5.90) m/uL Hgb 5.9 L* (13.0-17.5) gm/dL Hct 21.0 L (39.0-53.0) % MCHC 28.2 L (31.0-37.0) g/dL RDW 15.8 H (11.5-15.5) % Plt Count 118 L (150-450) k/uL Sodium (137-145) mmol/L Carbon Dioxide (22-30) mmol/L BUN (9-20) mg/dL Creatinine (0.66-1.25) mg/dL Glucose (74-99) mg/dL POC Glucose (mg/dL) 193 H (75-99) mg/dL Calcium (8.4-10.2) mg/dL Phosphorus (2.5-4.5) mg/dL Assessment and Plan Assessment: 1. ATN secondary to pneumonia, requiring dialysis last dialysis was 05/20/2017. Oliguric urine output is 738 mL. 2. Chronic kidney disease stage III. 3. Bilateral pneumonia improved. COPD. Chest x-ray is fairly clear 4. Significant anemia hemoglobin is 5.9, has been going down from 8.3 on 2016 gradually. Cause is not clear. No obvious bleeding. 5. Thrombocytopenia chronic since 2016 at least. Etiology not clear. 6. Mild metabolic acidosis. Bicarb is 21 and anion gap is 9 etiology is acute kidney injury. 7. Mild hyperphosphatemia from acute kidney injury and ATN 8. Vancomycin level high adding to the nephrotoxicity. Recommendation. Because of the need for transfusion output proceeded dialyze him today, been ultrafiltrate 2 L only. Expecting Improvement in ATN but Vancomycin Needs to Be Discontinued. Regarding the Phosphorus Expected to Improve There Is No Need for Binders at This Time. If Necessary We Can Start in the Next Few Days. If Pressure Is Less Than 110 Suggest Discontinuing Some of the Blood Pressure Medications. Maintain the Lasix 80 Mg Twice a Day by Mouth Start Sodium Bicarb 650 2 Times A Day
[2017-05-22] MEDS: ISOSORBIDE MONONITRATE ER 30 MG TAB.ER.24H PO SCH (09:06)
[2017-05-22] MEDS: methylPREDNISolone SOD SUCCI 40 MG/ML 1 ML VIAL IV SCH ×2 (09:06→21:57)
[2017-05-22] MEDS: VITAMIN E (DL,TOCOPHERYL ACET) 400 UNIT CAP PO SCH (09:07)
[2017-05-22] MEDS: CLOPIDOGREL 75 MG TAB PO SCH (09:10)
[2017-05-22] MEDS: SODIUM BICARBONATE TAB 650 MG TAB PO SCH ×2 (09:10→21:57)
[2017-05-22] MEDS: ASPIRIN 81 MG PO SCH ×2 (09:10→21:57)
[2017-05-22] MEDS: IPRATROPIUM-ALBUTEROL 3 ML NEB INHALATION SCH ×4 (09:18→19:37)
[2017-05-22] MEDS: ENOXAPARIN 30 MG/0.3 ML SYRINGE SQ SCH (09:54)
--- NOTE | 2017-05-22 11:24 | P.PN ---
Subjective Progress Note Date: 05/22/17 Principal diagnosis: Acute hypoxic respiratory failure secondary to pneumonia, congestive heart failure, and underlying COPD. A 67-year-old male patient who is being seen in consultation upon the request of Dr. Jerez for worsening shortness of breath. At the time of my evaluation , the patient was noted to be quite lethargic and somnolent. He was arousable. He had increased cough and congestion. He had diminished breath sounds throughout his lung pearson bilaterally. He was placed on oxygen at 3 L/m nasal cannula. A blood gas was ordered and it showed a pH of 7.2 with a pCO2 of 50 and a pO2 of 78 at 3 L/m nasal cannula. The patient was also found to be in acute on top of chronic renal failure with an underlying metabolic acidosis and acute hyperkalemia with a potassium level of 5.9. For that reason I made recommendations for this patient to be transferred to the intensive care unit. I was also told that the patient was having hypoglycemic events and he was placed on D5 half-normal saline at rate of 70 and an hour. This patient has history of COPD. The patient is an ex-smoker. His undergone coronary artery bypass surgery 2 years back and [facility] for underlying coronary artery disease. He is also known to have ischemic artery myopathy and has had an AICD in place. He suffers from chronic renal failure. He has hypertension and hyperlipidemia and diabetes mellitus. He presented to the hospital because of increased cough congestion and worsening shortness of breath. No major swelling in lower extremities. No orthopnea. No peripheral edema. His white cell count was nonelevated. His hemoglobin was low and the patient has chronic anemia with a hemoglobin of 8.3-8.4 and he was given IV iron. He was being diuresis with IV Lasix and diuretics got placed on hold as the patient developed an acute on top of chronic renal failure. The patient is also covered with broad-spectrum antibiotics and is currently on IV Fortaz. On 05/14/2017 I'm seeing this patient for a follow-up. The patient is quite lethargic and somnolent and he still continues to have significant limitations level of consciousness. Overnight he was also agitated and confused and he had required a dose of Ativan 1 mg which controlled his agitation. Overnight he was also kept on a BiPAP at a pressure of 12/5 cm of water and FiO2 of 40%. He continues to be oliguric. His renal function is progressively getting worse in his creatinine is up to 5.8. He was started on a bicarb drip yesterday and his serum bicarb is up to 17 and he has an anion gap of 17. The patient's chest x- ray from today showing multilobar pneumonia. A CAT scan of the chest was also done yesterday that showed bilateral pneumonia with airspace disease in the left upper lobe and some minimal airspace disease present in the right lung base. He has a weak cough. He is having difficulties in breathing and up his rest or secretions. His was unable to swallow today due to his marked diminishment in level of consciousness. And based on all this, I made decision to intubate the patient and place him on a mechanical ventilator. I also contacted nephrology and the patient is being considered for hemodialysis today. He is diabetic. His blood sugars have been within the hypoglycemic range and his most recent blood sugar is 163. He remains on D5 with 3 A of bicarb at the rate of 75 mL an hour. On 05/15/2017 the patient is being seen in follow-up in the intensive care unit. As mentioned, the patient was intubated and placed on a mechanical ventilator. This morning his well sedated and is calm and comfortable on Diprivan running at 50 mics. He is also on assist control mode of ventilation at the rate of 24, tidal volume of 500, FiO2 of 60% and a PEEP of 5. Chest x- ray from this morning shows adequate positioning of the orotracheal and orogastric tube. There is some atelectatic changes and left lung base. Overall the aeration is improved. The patient had a bronchoscopy yesterday and the bronchial lavage has been sent for microbial analysis and the results are still pending for now. Meanwhile he is on a broad-spectrum antibiotic coverage including a combination of cefepime, Levaquin and vancomycin. No fever. No hypotension. No chills. The patient is producing diminished urine output and he is still in acute kidney injury. A dialysis catheter was inserted yesterday and received his first session of dialysis yesterday. No volume was taken off and the patient had strict dialysis. The patient is improving in terms of his metabolic derangements. In fact on today's blood gases having a component of acute Minnie alkalosis with a pH of 7.5 and a pCO2 of 31 and pO2 of 98. As for his serum bicarb, there is up to 22 and the creatinine is down to 4.12. The patient is on a sliding scale insulin coverage for blood sugar control. He was having issues with elevated blood pressure post intubation. Currently is on a clevidipine running at 1 mg an hour and his blood pressure is under good control. On 05/16/2017 the patient is being seen in follow-up in the intensive care unit. The patient remains intubated on a mechanical ventilator. The morning vent setting showed an assist-control mode at the rate of 20, tidal volume of 450, FiO2 of 60% and PEEP of 5. Morning blood gases showed a pH of 7.45 with a pCO2 of 36 and pO2 46. Based on this the FiO2 was gradually wean down to 50% and hopefully down to 40%. Chest x-ray shows worsening of the right the pulmonary infiltrates especially on the left. ET tube is in a good location. Bronchoscopy was done and the bronchioloalveolar lavage has not shown any microbial growth. Meanwhile the patient remains on a broad-spectrum antibiotics and the patient is currently on a combination of cefepime and Levaquin and vancomycin. Hemodynamically he is doing well. He is on no pressors. In fact he was requiring clevidipine drip for blood pressure control. His blood pressure is controlled on 2 mg of clevidipine drip. He underwent dialysis yesterday without ultrafiltration. His creatinine is down to 2.85 and the patient is producing urine and order of 50-75 mL an hour. His urine output is improved. I'm not sure if he is going to require dialysis tomorrow. Discussed the case with the nephrology. Would like to give him a dose of Lasix to augment his urine output and he will be receiving 60 mg IV push. The patient is still sedated on Diprivan. Diprivan is running at 50 mics. He can still wake himself up through the sedation. He is moving all 4 extremities. His sedation has been titrated on Diprivan at times at is being brought up to 60 mics. The patient's cardiac ventricular paced. He is tolerating his tube feeds. He is on insulin drip running at 5 units an hour. He is still on a bronchodilators and systemic steroids for his COPD exacerbation. No other significant events overnight. Reevaluated today on 05/17/2017, patient remains on mechanical ventilation, presently a tidal volume of 450 assist control rate of 20 FiO2 is 45% and PEEP is 5. ABG showed a pO2 of 93 pCO2 of 38 pH of 7.41. Chest x-ray was reviewed, there is evidence of diffuse interstitial opacities and airspace disease bilaterally more so in the left perihilar area I believe the findings are mostly findings of pneumonia and congestive heart failure. His bronchoscopy has been nondiagnostic. Patient remains on broad-spectrum antibiotics in the form of cefepime and Levaquin as well as vancomycin. Patient is hemodynamically stable, not requiring any drips, he is however on clevidipine for elevated blood pressure. CBC showed normal WBC count hemoglobin is 7.2 BUN is 81 creatinine 2.90. Urine output seems to be adequate. And improving. Patient is not requiring dialysis at this point. Patient remains on propofol for sedation. He is also on nutritional support via enteral feeding. Remains on bronchodilators, remains on insulin drip. Reevaluated today on 05/18/2017, patient remains on mechanical ventilation, remains on the same ventilator settings as noted above. Patient was taken off sedation, but does not seem to be appropriate, confused, does not seem to follow any instructions. Patient does not seem to be in distress, however he remains on assist control mode of mechanical ventilation, and his chest x-ray continues to show air space disease mostly in the left perihilar area and left lower lobe. I believe the patient has ongoing pneumonia although his bronchoscopy was nondiagnostic. His congestive heart failure seems to have improved. Patient remains on clevidipine for elevated blood pressure. And that is being adjusted by cardiology on the case. WBC count is 11.9 hemoglobin is 7.4. ABG showed a pO2 of 78 pCO2 of 38 pH of 7.41 renal profile remains abnormal with BUN of 102 creatinine of 3.10. is at bedside, and I discussed his condition with the , also recommended CT of the brain because of his mental status, and it showed no specific abnormality except for chronic sinusitis and mastoiditis. Reevaluated today on 05/19/2017, patient remains on mechanical ventilation, however off sedation, and his mental status significantly improved over the last 24 hours. Patient is following simple instructions like squeezing hands, wiggling toes, and seems to be comprehending or what he is being controlled. Patient was given a trial of weaning using pressure support and CPAP, and he was noted to do quite well. ABG done on pressure support of 8 and CPAP, showed excellent gases with pO2 of 105 pCO2 of 36 pH of 7.44. His basic metabolic profile was also reviewed. BUN is down to 94 creatinine is down to 2.60, patient was dialyzed yesterday. Hemoglobin is 7.6 today. Patient has clearly acute kidney injury on chronic kidney disease. 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 Baseline creatinine is about 2.0. Urine output remains marginal roughly about 30-50 an hour. Patient remains off pressors. And his tube feeding via nasogastric tube was placed on hold earlier. Chest x-ray continues to show small left basilar consolidation and pulmonary vascular congestion. Reevaluated today on 05/20/2017, patient was extubated yesterday, and he tolerated the extubation quite well so far over the last 24 hours. Patient is relatively asymptomatic, remains on nasal cannula, blood pressure remains significantly elevated requiring multiple medications to lower the blood pressure down, chest x-ray is showing resolution of the previous left lower lobe infiltrate, and definite improvement in his overall fluid status.patient is still being followed by nephrology for his acute kidney injury on chronic kidney disease. Still planning to undergo at least one more dialysis today.goal is 1 L of ultrafiltration today. And his diuretics were placed on hold.WBC count today is 19.8 hemoglobin is 7.8.BUN is 125 creatinine is 2.87 Reevaluated today on 05/21/2017, patient continues to tolerate the extubation for the last 2 days, doing relatively well, better than expected. He remained generally weak, has a bit of a blunted affect, but in no form of distress WBC count seems to be on the rise up to 25.8 hemoglobin is 7.3 renal profile was noted with BUN of 100 creatinine of 2.2. Chest x-ray yesterday showed resolution of previous left lower lobe pneumonia. Reevaluated today on 05/22/2017, patient continues to tolerate the extubation, this has been his third day. Relatively asymptomatic, last night I was notified about low blood pressure recommended norepinephrine, however pressure came back on its own, and today I would hold some of his blood pressure medications, patient did not require norepinephrine. He remained generally weak , in no form of respiratory distress. Hemoglobin is relatively low today, and may need a unit of packed RBCs to be transfused today. Patient is also scheduled to undergo hemodialysis again today. Urine output is marginal. Repeat hemoglobin today twice was 5.8 and 5.9, clearly he needs to be transfused. And we are in the process of typing and cross match. Chest x-ray continues to show improvement, minimal cardiomegaly, and minimaldisease noted in the left midlung. And mild pulmonary vascular congestion noted. Objective - Vital Signs Vital signs: Vital Signs Temp 98.1 F 05/22/17 10:29 Pulse 62 05/22/17 11:00 Resp 20 05/22/17 11:00 BP 117/53 05/22/17 11:00 Pulse Ox 100 05/22/17 11:00 Intake & Output 05/21/17 05/22/17 05/22/17 18:59 06:59 18:59 Intake Total 240 240 80 Output Total 428 310 183 Balance -188 -70 -103 Weight 89.2 kg 88.8 kg Intake: IV 240 240 80 0.9 240 240 80 Blood Product 0 Rc As-1 Unit 0 [id number] Output: Urine 428 310 183 Other: Voiding Method Indwelling Catheter Indwelling Catheter Indwelling Catheter # Emeses 1 1 ABP, PAP, CO, CI - Last Documented Arterial Blood Pressure 95/90 - Exam Physical exam: Revealed a 67-year-old white male in no distress.on nasal cannula. Patient awake, follows simple instructions without any difficulty. neck is short and thick and supple and there is no significant neck veins. No JVDs. No goiter.Head exam was generally normal. There was no scleral icterus or corneal arcus. Mucous membranes noted to be slightly dry. Lungs sounds are diminished bilaterally , no crackles, no rhonchi, no wheezes. Cardiac exam revealed the PMI to be normally situated and sized. The rhythm was regular and no extrasystoles were noted during several minutes of auscultation. The first and second heart sounds were normal and physiologic splitting of the second heart sound was noted. There were no murmurs, rubs, clicks, or gallops. Abdominal exam revealed normal bowel sounds. The abdomen was soft, non-tender, and without masses, organomegaly, or appreciable enlargement of the abdominal aorta. Patient is obese and organs cannot be accurately palpated on today's evaluation. Examination of the extremities revealed easily palpable radial, femoral and pedal pulses. There was no cyanosis, Trace of edema noted bilaterally. Neurologically the patient is awake, follows all simple instructions , But seems to be relatively slow and generally weak. Examination of the skin revealed no evidence of significant rashes, suspicious appearing nevi or other concerning lesions. Psychiatric: Affect remains blunted, otherwise normal mental status examination. - Labs CBC & Chem 7: 05/22/17 08:05 05/22/17 04:53 Labs: Abnormal Lab Results - Last 24 Hours (Table) 05/21/17 05/21/17 05/21/17 Range/Units 12:06 13:48 16:22 WBC 25.8 H* (3.8-10.6) k/uL RBC 2.79 L (4.30-5.90) m/uL Hgb 7.3 L (13.0-17.5) gm/dL Hct 24.2 L (39.0-53.0) % MCHC 30.1 L (31.0-37.0) g/dL RDW 16.2 H (11.5-15.5) % Plt Count (150-450) k/uL Sodium (137-145) mmol/L Carbon Dioxide (22-30) mmol/L BUN (9-20) mg/dL Creatinine (0.66-1.25) mg/dL Glucose (74-99) mg/dL POC Glucose (mg/dL) 178 H 162 H (75-99) mg/dL Calcium (8.4-10.2) mg/dL Phosphorus (2.5-4.5) mg/dL Crossmatch 05/21/17 05/22/17 05/22/17 Range/Units 21:58 04:53 04:53 WBC 17.7 H (3.8-10.6) k/uL RBC 2.26 L (4.30-5.90) m/uL Hgb 5.8 L* D (13.0-17.5) gm/dL Hct 20.0 L* (39.0-53.0) % MCHC 29.3 L (31.0-37.0) g/dL RDW 16.9 H (11.5-15.5) % Plt Count 122 L (150-450) k/uL Sodium 134 L (137-145) mmol/L Carbon Dioxide 21 L (22-30) mmol/L BUN 127 H* (9-20) mg/dL Creatinine 2.70 H (0.66-1.25) mg/dL Glucose 178 H (74-99) mg/dL POC Glucose (mg/dL) 156 H (75-99) mg/dL Calcium 8.1 L (8.4-10.2) mg/dL Phosphorus 7.0 H (2.5-4.5) mg/dL Crossmatch 05/22/17 05/22/17 05/22/17 Range/Units 07:41 08:05 08:05 WBC 18.6 H (3.8-10.6) k/uL RBC 2.32 L (4.30-5.90) m/uL Hgb 5.9 L* (13.0-17.5) gm/dL Hct 21.0 L (39.0-53.0) % MCHC 28.2 L (31.0-37.0) g/dL RDW 15.8 H (11.5-15.5) % Plt Count 118 L (150-450) k/uL Sodium (137-145) mmol/L Carbon Dioxide (22-30) mmol/L BUN (9-20) mg/dL Creatinine (0.66-1.25) mg/dL Glucose (74-99) mg/dL POC Glucose (mg/dL) 193 H (75-99) mg/dL Calcium (8.4-10.2) mg/dL Phosphorus (2.5-4.5) mg/dL Crossmatch See Detail Assessment and Plan Plan: 1 bilateral pneumonia worse on the left with secondary acute hypoxic respiratory failure. Resolved. 2 acute COPD exacerbation secondary to left lung pneumonia, improving . Patient was extubated 2 days ago. 3 acute hypertensive reaction , responding well to oral medications 4 diastolic congestion heart failure, ischemic cardiomyopathy and the most recent echocardiogram shows a low normal ejection fraction with an EF around 50- 55%, severely dilated LA, severe pulmonary hypertension with a PA pressure of 68 5 coronary artery disease with previous coronary artery bypass surgery 6 history of cardiac block status post pacemaker insertion/AICD insertion 7 acute on top of chronic renal failure, Being addressed by nephrology. 8 chronic renal failure with stage III to 4 chronic kidney disease 9 diabetes mellitus, currently in size Blood sugar control 10 hypertension, oral meds will be adjusted accordingly today. 11 hyperlipidemia. 12 hyperkalemia, improved 15 peripheral vascular disease 14 previous history of GI bleed 15 chronic iron deficiency 16 metabolic acidosis currently improved 17 Address nutritional support via oral intake 18 bleeding from catheter insertion site in the right femoral vein, currently inactive 19 anemia where the patient's hemoglobin is 5.8, patient will require a unit of packed RBCs at least possibly to. RecommendationColon Continue present supportive care measures, plans for dialysis today, plans for a blood transfusion today, and hopefully will move the patient out of the ICU in the next 24 hours. Time with Patient: Less than 30
[2017-05-22] MEDS ORDERED: HEPARIN SODIUM,PORCINE 5,000 UNIT/ML 1 ML VIAL ONE ×2 (11:35→15:40)
[2017-05-22] MEDS: SCOPOLAMINE 1.5MG/72HR PATCH TRANSDERM SCH (12:18)
[2017-05-22 12:24] LABS: Glucose,Whole Blood 188 mg/dL (75-99)
[2017-05-22] MEDS ORDERED: glipiZIDE 10 MG TAB PO SCH (14:00)
[2017-05-22] MEDS: LEVOFLOXACIN 500MG-D5W PMX 500 MG in DEXTROSE/WATER 1 100ML.BAG IVPB SCH (16:10)
[2017-05-22 17:00] LABS: Glucose,Whole Blood 140 mg/dL (75-99)
[2017-05-22] MEDS: glipiZIDE 10 MG TAB PO SCH (17:22)
--- NOTE | 2017-05-22 17:31 | PN ---
PROGRESS NOTE DATE OF SERVICE: 05/22/2017. PRESENTING COMPLAINT: Short of breath. INTERVAL HISTORY: This is a patient with multiple problems, including pneumonia, status post bronchoscopy, COPD exacerbation, also now getting hemodialysis. Patient did drop his hemoglobin to 5.8, but no external bleeding was noted. Getting a unit of blood today. The patient had been on clear liquid diet until this morning. is at the bedside. Breathing is a bit better. Sitting up. REVIEW OF SYSTEMS: Done for constitutional, cardiovascular, GI, pulmonary; relevant findings as above. CURRENT MEDICATIONS: Reviewed that include: 1. DuoNeb. 2. IV ceftazidime. 3. IV Levaquin. PHYSICAL EXAMINATION: Temperature 98, pulse 59, respiration 14, blood pressure 104/49, pulse ox 98% on 2L. GENERAL APPEARANCE: Sitting up, awake. EYES: Pupil equal. Conjunctivae normal. NECK: JVD unable to assess. Mass not palpable. RESPIRATORY: Effort increased. LUNGS: Decreased breath sounds. CARDIOVASCULAR: First and second sounds normal. Edema present. ABDOMEN: Soft, nontender. Liver and spleen not palpable. PSYCHIATRY: Alert and oriented x3. Mood and affect are more perky. INVESTIGATIONS: White count 17.7, hemoglobin 5.8, platelets 122. Potassium 4.8, BUN 127, creatinine 2.7. Accu-Cheks are noted. Chest x-ray: Decreased infiltrate. ASSESSMENT: 1. Bilateral pneumonia, suspect gram-negative organism causing acute hypoxic respiratory failure, status post ventilator-assisted. Now clinically improving. Pulse oximetry is greatly improved. 2. Status post bronchoscopy. 3. Acute chronic obstructive pulmonary disease exacerbation. 4. Essential hypertension with urgency. Blood pressure much better controlled. 5. Acute on chronic congestive heart failure exacerbation from systolic and diastolic dysfunction, ejection fraction about 50% secondary to hypertensive heart disease. 6. Severe secondary pulmonary hypertension secondary to chronic obstructive pulmonary disease. 7. Coronary artery disease. Prior history of coronary bypass. 8. Automatic implantable cardioverter-defibrillator with pacemaker. 9. Acute renal failure, multifactorial, probably acute tubular necrosis, currently getting hemodialysis. 10.Chronic kidney disease, probably hypertensive nephrosclerosis stage 4 from nephrosclerosis and nephropathy from diabetes. 11.Hyperlipidemia. 12.Hyperkalemia, resolved. 13.Peripheral artery disease. 14.Metabolic acidosis. PLAN: Patient is going to get ultrafiltration 2 L, getting a unit of blood. Will discontinue the scopolamine patch. Solu-Medrol has been cut back. From bronchial washings, all the cultures have been negative. Care was discussed with the at the bedside. Follow. The patient's diet has been advanced. MMODL / IJN: [id number] /
[2017-05-22] MEDS ORDERED: VANCOMYCIN 1,250 MG in SODIUM CHLORIDE 0.9% 250 ML IVPB ONE (21:00)
[2017-05-22] MEDS: FOLIC ACID 1 MG TAB PO SCH (21:57)
[2017-05-22] MEDS: ATORVASTATIN 40 MG TAB PO SCH (21:57)
[2017-05-22] MEDS: cloNIDine HCL 0.1 MG TAB PO SCH (21:57)
[2017-05-22 22:05] LABS: Glucose,Whole Blood 148 mg/dL (75-99)
[2017-05-23] MEDS: hydrALAZINE HCL 25 MG TAB PO SCH ×3 (01:08→20:33)
[2017-05-23 04:33] LABS: CH 27.1; CHCM 30.6; HCT 22.6 % (39.0-53.0); HDW 3.02; Hypochromasia Moderate; MCH 26.6 pg (25.0-35.0); MCHC 29.9 g/dL (31.0-37.0); MCV 88.8 fL (80.0-100.0); Mean Platelet Volume 8.6; RBC 2.55 m/uL (4.30-5.90); RDW 15.9 % (11.5-15.5); WBC 23.5 k/uL (3.8-10.6)
[2017-05-23 04:45] LABS: HGB 6.8 gm/dL (13.0-17.5)
[2017-05-23 04:47] LABS: Calcium 8.1 mg/dL (8.4-10.2); Phosphorous 5.5 mg/dL (2.5-4.5); Potassium 4.7 mmol/L (3.5-5.1)
--- NOTE | 2017-05-23 06:37 | XR ---
EXAMINATION TYPE: XR chest 1V portable DATE OF EXAM: 05/23/2017 HISTORY: PNM, CHF, recent intubation. REFERENCE: Previous study dated 05/22/2017. FINDINGS: There has been a midline sternotomy. There is a multilead pacing device projects on the lef t.. The heart is enlarged. There is vascular congestion and mild interstitial change. No definite pleural fluid is seen. There continues to be a density in the left midlung. IMPRESSION: 1. CARDIOMEGALY. 2. CHANGES CONSISTENT WITH MILD HEART FAILURE. 3. ATELECTASIS VERSUS CONSOLIDATION, LEFT MIDLUNG.
[2017-05-23 07:25] LABS: Glucose,Whole Blood 139 mg/dL (75-99)
[2017-05-23] MEDS: SODIUM BICARBONATE TAB 650 MG TAB PO SCH ×2 (08:12→20:33)
[2017-05-23] MEDS: ISOSORBIDE MONONITRATE ER 30 MG TAB.ER.24H PO SCH (08:12)
[2017-05-23] MEDS: CARVEDILOL 12.5 MG TAB PO SCH ×2 (08:12→17:35)
[2017-05-23] MEDS: FERROUS SULFATE 325 MG TAB PO SCH ×2 (08:12→17:35)
[2017-05-23] MEDS: CLOPIDOGREL 75 MG TAB PO SCH (08:12)
[2017-05-23] MEDS: INSULIN LISPRO (humaLOG) 300 UNIT/3 ML VIAL SQ SCH ×4 (08:12→20:37)
[2017-05-23] MEDS: ASPIRIN 81 MG PO SCH ×2 (08:12→20:32)
[2017-05-23] MEDS: glipiZIDE 10 MG TAB PO SCH (08:12)
[2017-05-23] MEDS: VITAMIN E (DL,TOCOPHERYL ACET) 400 UNIT CAP PO SCH (08:12)
[2017-05-23] MEDS: SEVELAMER 800 MG TAB PO SCH ×3 (08:12→17:34)
[2017-05-23] MEDS: methylPREDNISolone SOD SUCCI 40 MG/ML 1 ML VIAL IV SCH (08:13)
[2017-05-23] MEDS: ENOXAPARIN 30 MG/0.3 ML SYRINGE SQ SCH (08:13)
[2017-05-23] MEDS: IPRATROPIUM-ALBUTEROL 3 ML NEB INHALATION SCH ×4 (08:45→19:40)
[2017-05-23] MEDS: cloNIDine HCL 0.1 MG TAB PO SCH ×2 (09:16→20:33)
[2017-05-23] MEDS: predniSONE 20 MG TAB PO SCH (12:12)
[2017-05-23 12:17] LABS: Glucose,Whole Blood 171 mg/dL (75-99)
[2017-05-23] MEDS: METOCLOPRAMIDE 5 MG/ML 2 ML VIAL IVP PRN (12:24)
--- NOTE | 2017-05-23 13:45 | P.PN ---
Subjective Progress Note Date: 05/23/17 Principal diagnosis: Acute hypoxic respiratory failure secondary to pneumonia, congestive heart failure, and underlying COPD. A 67-year-old male patient who is being seen in consultation upon the request of Dr. Jerez for worsening shortness of breath. At the time of my evaluation , the patient was noted to be quite lethargic and somnolent. He was arousable. He had increased cough and congestion. He had diminished breath sounds throughout his lung pearson bilaterally. He was placed on oxygen at 3 L/m nasal cannula. A blood gas was ordered and it showed a pH of 7.2 with a pCO2 of 50 and a pO2 of 78 at 3 L/m nasal cannula. The patient was also found to be in acute on top of chronic renal failure with an underlying metabolic acidosis and acute hyperkalemia with a potassium level of 5.9. For that reason I made recommendations for this patient to be transferred to the intensive care unit. I was also told that the patient was having hypoglycemic events and he was placed on D5 half-normal saline at rate of 70 and an hour. This patient has history of COPD. The patient is an ex-smoker. His undergone coronary artery bypass surgery 2 years back and [facility] for underlying coronary artery disease. He is also known to have ischemic artery myopathy and has had an AICD in place. He suffers from chronic renal failure. He has hypertension and hyperlipidemia and diabetes mellitus. He presented to the hospital because of increased cough congestion and worsening shortness of breath. No major swelling in lower extremities. No orthopnea. No peripheral edema. His white cell count was nonelevated. His hemoglobin was low and the patient has chronic anemia with a hemoglobin of 8.3-8.4 and he was given IV iron. He was being diuresis with IV Lasix and diuretics got placed on hold as the patient developed an acute on top of chronic renal failure. The patient is also covered with broad-spectrum antibiotics and is currently on IV Fortaz. On 05/14/2017 I'm seeing this patient for a follow-up. The patient is quite lethargic and somnolent and he still continues to have significant limitations level of consciousness. Overnight he was also agitated and confused and he had required a dose of Ativan 1 mg which controlled his agitation. Overnight he was also kept on a BiPAP at a pressure of 12/5 cm of water and FiO2 of 40%. He continues to be oliguric. His renal function is progressively getting worse in his creatinine is up to 5.8. He was started on a bicarb drip yesterday and his serum bicarb is up to 17 and he has an anion gap of 17. The patient's chest x- ray from today showing multilobar pneumonia. A CAT scan of the chest was also done yesterday that showed bilateral pneumonia with airspace disease in the left upper lobe and some minimal airspace disease present in the right lung base. He has a weak cough. He is having difficulties in breathing and up his rest or secretions. His was unable to swallow today due to his marked diminishment in level of consciousness. And based on all this, I made decision to intubate the patient and place him on a mechanical ventilator. I also contacted nephrology and the patient is being considered for hemodialysis today. He is diabetic. His blood sugars have been within the hypoglycemic range and his most recent blood sugar is 163. He remains on D5 with 3 A of bicarb at the rate of 75 mL an hour. On 05/15/2017 the patient is being seen in follow-up in the intensive care unit. As mentioned, the patient was intubated and placed on a mechanical ventilator. This morning his well sedated and is calm and comfortable on Diprivan running at 50 mics. He is also on assist control mode of ventilation at the rate of 24, tidal volume of 500, FiO2 of 60% and a PEEP of 5. Chest x- ray from this morning shows adequate positioning of the orotracheal and orogastric tube. There is some atelectatic changes and left lung base. Overall the aeration is improved. The patient had a bronchoscopy yesterday and the bronchial lavage has been sent for microbial analysis and the results are still pending for now. Meanwhile he is on a broad-spectrum antibiotic coverage including a combination of cefepime, Levaquin and vancomycin. No fever. No hypotension. No chills. The patient is producing diminished urine output and he is still in acute kidney injury. A dialysis catheter was inserted yesterday and received his first session of dialysis yesterday. No volume was taken off and the patient had strict dialysis. The patient is improving in terms of his metabolic derangements. In fact on today's blood gases having a component of acute Minnie alkalosis with a pH of 7.5 and a pCO2 of 31 and pO2 of 98. As for his serum bicarb, there is up to 22 and the creatinine is down to 4.12. The patient is on a sliding scale insulin coverage for blood sugar control. He was having issues with elevated blood pressure post intubation. Currently is on a clevidipine running at 1 mg an hour and his blood pressure is under good control. On 05/16/2017 the patient is being seen in follow-up in the intensive care unit. The patient remains intubated on a mechanical ventilator. The morning vent setting showed an assist-control mode at the rate of 20, tidal volume of 450, FiO2 of 60% and PEEP of 5. Morning blood gases showed a pH of 7.45 with a pCO2 of 36 and pO2 46. Based on this the FiO2 was gradually wean down to 50% and hopefully down to 40%. Chest x-ray shows worsening of the right the pulmonary infiltrates especially on the left. ET tube is in a good location. Bronchoscopy was done and the bronchioloalveolar lavage has not shown any microbial growth. Meanwhile the patient remains on a broad-spectrum antibiotics and the patient is currently on a combination of cefepime and Levaquin and vancomycin. Hemodynamically he is doing well. He is on no pressors. In fact he was requiring clevidipine drip for blood pressure control. His blood pressure is controlled on 2 mg of clevidipine drip. He underwent dialysis yesterday without ultrafiltration. His creatinine is down to 2.85 and the patient is producing urine and order of 50-75 mL an hour. His urine output is improved. I'm not sure if he is going to require dialysis tomorrow. Discussed the case with the nephrology. Would like to give him a dose of Lasix to augment his urine output and he will be receiving 60 mg IV push. The patient is still sedated on Diprivan. Diprivan is running at 50 mics. He can still wake himself up through the sedation. He is moving all 4 extremities. His sedation has been titrated on Diprivan at times at is being brought up to 60 mics. The patient's cardiac ventricular paced. He is tolerating his tube feeds. He is on insulin drip running at 5 units an hour. He is still on a bronchodilators and systemic steroids for his COPD exacerbation. No other significant events overnight. Reevaluated today on 05/17/2017, patient remains on mechanical ventilation, presently a tidal volume of 450 assist control rate of 20 FiO2 is 45% and PEEP is 5. ABG showed a pO2 of 93 pCO2 of 38 pH of 7.41. Chest x-ray was reviewed, there is evidence of diffuse interstitial opacities and airspace disease bilaterally more so in the left perihilar area I believe the findings are mostly findings of pneumonia and congestive heart failure. His bronchoscopy has been nondiagnostic. Patient remains on broad-spectrum antibiotics in the form of cefepime and Levaquin as well as vancomycin. Patient is hemodynamically stable, not requiring any drips, he is however on clevidipine for elevated blood pressure. CBC showed normal WBC count hemoglobin is 7.2 BUN is 81 creatinine 2.90. Urine output seems to be adequate. And improving. Patient is not requiring dialysis at this point. Patient remains on propofol for sedation. He is also on nutritional support via enteral feeding. Remains on bronchodilators, remains on insulin drip. Reevaluated today on 05/18/2017, patient remains on mechanical ventilation, remains on the same ventilator settings as noted above. Patient was taken off sedation, but does not seem to be appropriate, confused, does not seem to follow any instructions. Patient does not seem to be in distress, however he remains on assist control mode of mechanical ventilation, and his chest x-ray continues to show air space disease mostly in the left perihilar area and left lower lobe. I believe the patient has ongoing pneumonia although his bronchoscopy was nondiagnostic. His congestive heart failure seems to have improved. Patient remains on clevidipine for elevated blood pressure. And that is being adjusted by cardiology on the case. WBC count is 11.9 hemoglobin is 7.4. ABG showed a pO2 of 78 pCO2 of 38 pH of 7.41 renal profile remains abnormal with BUN of 102 creatinine of 3.10. is at bedside, and I discussed his condition with the , also recommended CT of the brain because of his mental status, and it showed no specific abnormality except for chronic sinusitis and mastoiditis. Reevaluated today on 05/19/2017, patient remains on mechanical ventilation, however off sedation, and his mental status significantly improved over the last 24 hours. Patient is following simple instructions like squeezing hands, wiggling toes, and seems to be comprehending or what he is being controlled. Patient was given a trial of weaning using pressure support and CPAP, and he was noted to do quite well. ABG done on pressure support of 8 and CPAP, showed excellent gases with pO2 of 105 pCO2 of 36 pH of 7.44. His basic metabolic profile was also reviewed. BUN is down to 94 creatinine is down to 2.60, patient was dialyzed yesterday. Hemoglobin is 7.6 today. Patient has clearly acute kidney injury on chronic kidney disease. 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 Baseline creatinine is about 2.0. Urine output remains marginal roughly about 30-50 an hour. Patient remains off pressors. And his tube feeding via nasogastric tube was placed on hold earlier. Chest x-ray continues to show small left basilar consolidation and pulmonary vascular congestion. Reevaluated today on 05/20/2017, patient was extubated yesterday, and he tolerated the extubation quite well so far over the last 24 hours. Patient is relatively asymptomatic, remains on nasal cannula, blood pressure remains significantly elevated requiring multiple medications to lower the blood pressure down, chest x-ray is showing resolution of the previous left lower lobe infiltrate, and definite improvement in his overall fluid status.patient is still being followed by nephrology for his acute kidney injury on chronic kidney disease. Still planning to undergo at least one more dialysis today.goal is 1 L of ultrafiltration today. And his diuretics were placed on hold.WBC count today is 19.8 hemoglobin is 7.8.BUN is 125 creatinine is 2.87 Reevaluated today on 05/21/2017, patient continues to tolerate the extubation for the last 2 days, doing relatively well, better than expected. He remained generally weak, has a bit of a blunted affect, but in no form of distress WBC count seems to be on the rise up to 25.8 hemoglobin is 7.3 renal profile was noted with BUN of 100 creatinine of 2.2. Chest x-ray yesterday showed resolution of previous left lower lobe pneumonia. Reevaluated today on 05/22/2017, patient continues to tolerate the extubation, this has been his third day. Relatively asymptomatic, last night I was notified about low blood pressure recommended norepinephrine, however pressure came back on its own, and today I would hold some of his blood pressure medications, patient did not require norepinephrine. He remained generally weak , in no form of respiratory distress. Hemoglobin is relatively low today, and may need a unit of packed RBCs to be transfused today. Patient is also scheduled to undergo hemodialysis again today. Urine output is marginal. Repeat hemoglobin today twice was 5.8 and 5.9, clearly he needs to be transfused. And we are in the process of typing and cross match. Chest x-ray continues to show improvement, minimal cardiomegaly, and minimaldisease noted in the left midlung. And mild pulmonary vascular congestion noted. Reevaluated today on 05/23/2017, patient continues to do quite well, he seems to be in a better mood in better spirits, very appropriate, however he is generally weak and tired. Denies any shortness of breath, no cough, no wheezing , and no pain. Hemoglobin is a bit low at 6.8, may or may not require another blood transfusion, however will decide that tomorrow when the patient undergoes hemodialysis again. His BUN is down to 101 creatinine is 1.90, and his last hemodialysis was yesterday. WBC count remains elevated at 23.5. His bronchial cultures have been negative and nondiagnostic. Chest x-ray today showed mild congestive heart failure changes and atelectasis at the left midlung area with significant improvement of his previously noted pneumonia in the left midlung and left lower lobe area Objective - Vital Signs Vital signs: Vital Signs Temp 98.1 F 05/23/17 12:00 Pulse 62 05/23/17 12:13 Resp 17 05/23/17 12:00 BP 138/53 05/23/17 12:00 Pulse Ox 93 L 05/23/17 12:00 Intake & Output 05/22/17 05/23/17 05/23/17 18:59 06:59 18:59 Intake Total 930 240 385 Output Total 2379 220 302 Balance -1449 20 83 Weight 87.6 kg Intake: IV 310 240 160 0.9 160 240 110 fortaz 50 50 levaquin 100 Oral 225 Blood Product 620 Rc As-1 Unit 310 [id number] Output: Urine 379 220 302 Other 1999 Other: Voiding Method Indwelling Catheter Indwelling Catheter Indwelling Catheter ABP, PAP, CO, CI - Last Documented Arterial Blood Pressure 95/90 - Exam Physical exam: Revealed a 67-year-old white male in no distress.on nasal cannula. Patient awake, alert and oriented, and in no form of respiratory distress. neck is short and thick and supple and there is no significant neck veins. No JVDs. No goiter.Head exam was generally normal. There was no scleral icterus or corneal arcus. Mucous membranes noted to be slightly dry. Lungs sounds are diminished bilaterally , no crackles, no rhonchi, no wheezes. Cardiac exam revealed the PMI to be normally situated and sized. The rhythm was regular and no extrasystoles were noted during several minutes of auscultation. The first and second heart sounds were normal and physiologic splitting of the second heart sound was noted. There were no murmurs, rubs, clicks, or gallops. Abdominal exam revealed normal bowel sounds. The abdomen was soft, non-tender, and without masses, organomegaly, or appreciable enlargement of the abdominal aorta. Patient is obese and organs cannot be accurately palpated on today's evaluation. Examination of the extremities revealed easily palpable radial, femoral and pedal pulses. There was no cyanosis, Trace of edema noted bilaterally. Neurologically the patient is awake, follows all simple instructions , But seems to be relatively slow and generally weak. Examination of the skin revealed no evidence of significant rashes, suspicious appearing nevi or other concerning lesions. Psychiatric: Appropriate mood and affect, normal mental status examination today - Labs CBC & Chem 7: 05/23/17 04:03 05/23/17 04:03 Labs: Abnormal Lab Results - Last 24 Hours (Table) 05/22/17 05/22/17 05/23/17 Range/Units 16:58 22:04 04:03 WBC 23.5 H (3.8-10.6) k/uL RBC 2.55 L (4.30-5.90) m/uL Hgb 6.8 L* (13.0-17.5) gm/dL Hct 22.6 L (39.0-53.0) % MCHC 29.9 L (31.0-37.0) g/dL RDW 15.9 H (11.5-15.5) % Plt Count 112 L (150-450) k/uL Sodium (137-145) mmol/L BUN (9-20) mg/dL Creatinine (0.66-1.25) mg/dL Glucose (74-99) mg/dL POC Glucose (mg/dL) 140 H 148 H (75-99) mg/dL Calcium (8.4-10.2) mg/dL Phosphorus (2.5-4.5) mg/dL 05/23/17 05/23/17 05/23/17 Range/Units 04:03 07:23 12:15 WBC (3.8-10.6) k/uL RBC (4.30-5.90) m/uL Hgb (13.0-17.5) gm/dL Hct (39.0-53.0) % MCHC (31.0-37.0) g/dL RDW (11.5-15.5) % Plt Count (150-450) k/uL Sodium 133 L (137-145) mmol/L BUN 101 H* (9-20) mg/dL Creatinine 1.90 H (0.66-1.25) mg/dL Glucose 103 H (74-99) mg/dL POC Glucose (mg/dL) 139 H 171 H (75-99) mg/dL Calcium 8.1 L (8.4-10.2) mg/dL Phosphorus 5.5 H (2.5-4.5) mg/dL Assessment and Plan Plan: 1 bilateral pneumonia worse on the left with secondary acute hypoxic respiratory failure. Resolved. 2 acute COPD exacerbation secondary to left lung pneumonia, improving . Patient was extubated 4 days ago 3 hypertension presently under control with multiple medications as noted. 4 diastolic congestion heart failure, ischemic cardiomyopathy and the most recent echocardiogram shows a low normal ejection fraction with an EF around 50- 55%, severely dilated LA, severe pulmonary hypertension with a PA pressure of 68 5 coronary artery disease with previous coronary artery bypass surgery 6 history of cardiac block status post pacemaker insertion/AICD insertion 7 acute on top of chronic renal failure, Being addressed by nephrology. 8 chronic renal failure with stage III to 4 chronic kidney disease 9 diabetes mellitus, currently in size Blood sugar control 10 hypertension, oral meds will be adjusted accordingly today. 11 hyperlipidemia. 12 hyperkalemia, improved 15 peripheral vascular disease 14 previous history of GI bleed 15 chronic iron deficiency 16 metabolic acidosis currently improved 17 Address nutritional support via oral intake 18 bleeding from catheter insertion site in the right femoral vein, currently inactive 19 anemia where the patient's hemoglobin is 6.8, we'll decide upon transfusion in the next 24 hours. Recommendation; transfer patient out of the ICU today, consider protective services social worker evaluation, physical therapy evaluation, and discharge planning in the next 24- 48 hours. Time with Patient: Less than 30
[2017-05-23] MEDS ORDERED: glipiZIDE 10 MG TAB PO SCH (14:00)
[2017-05-23 17:14] LABS: Glucose,Whole Blood 239 mg/dL (75-99)
[2017-05-23 20:25] LABS: Glucose,Whole Blood 251 mg/dL (75-99)
[2017-05-23] MEDS: ATORVASTATIN 40 MG TAB PO SCH (20:32)
[2017-05-23] MEDS: FOLIC ACID 1 MG TAB PO SCH (20:33)
[2017-05-23] MEDS ORDERED: SODIUM CHLORIDE 0.9% IVPB ONE (22:05)
[2017-05-23] MEDS ORDERED: DESMOPRESSIN IVPB ONE (22:05)
[2017-05-24] MEDS: LORazepam 2 MG/ML INJ IV PRN ×3 (02:33→22:11)
--- NOTE | 2017-05-24 02:54 | PN ---
PROGRESS NOTE Patient is seen for followup for acute kidney injury on top of chronic kidney disease. He is currently on hemodialysis. The patient had dialysis yesterday. He will be scheduled again tomorrow. His urine output has been about 30 mL an hour. However, he remains with significant edema. He is currently awake and according to nursing staff the patient is more confused in the evening. EXAMINATION: Blood pressure is 147/56, heart rate 67 per minute. He is afebrile. Examination of the heart S1, S2. Examination of the lungs decreased breath sounds at the bases. Abdomen is soft, nontender. Examination of lower extremities shows edema 3+ bilaterally. There is oozing noted from the femoral catheter. LABS: Sodium 133, potassium 4.7, serum creatinine 1.9, BUN 101, hemoglobin 6.8 g/dL. ASSESSMENT: 1. Acute kidney injury, acute tubular necrosis, currently nonoliguric. However, urine output dropped after hemodialysis yesterday, now it is at about 30 mL an hour. The patient will be dialyzed again tomorrow with the goal UF of about 2 L. 2. Bleeding from the site of the dialysis catheter as well as an A-line previously. I will give him DDAVP for possible platelet dysfunction associated with renal failure. 3. Anemia status post packed RBCs transfusion. Hemoglobin today is at 6.8 g/dL. 4. Bilateral pneumonia. 5. Chronic kidney disease stage 3. 6. Mild hyperphosphatemia, currently not eating. 7. High vancomycin level. PLAN: Hemodialysis in a.m. and DDAVP x1. If the patient needs to continue with dialysis, depending on his response over the next few days, then we will need to switch to an IJ PermCath. MMODL / IJN: [id number] /
[2017-05-24 03:27] LABS: Anisocytosis Slight; CH 27.1; CHCM 30.6; Hypochromasia Moderate; MCH 26.6 pg (25.0-35.0); MCV 88.6 fL (80.0-100.0); RBC 2.25 m/uL (4.30-5.90); WBC 24.2 k/uL (3.8-10.6)
[2017-05-24] MEDS: HYDROmorphone 1 MG/ML 1 ML SYRINGE IVP PRN ×3 (03:28→22:53)
--- NOTE | 2017-05-24 03:29 | PN ---
PROGRESS NOTE DATE OF SERVICE: May 23, 2017. PRESENTING COMPLAINT: Short of breath. INTERVAL HISTORY: The patient has multiple problems including pneumonia, status post bronchoscopy, COPD exacerbation. Also on hemodialysis now. Got a unit of blood yesterday. The patient is not very keen to eat. Has only been eating ice cream. Sitting up. Awake though tired. REVIEW OF SYSTEMS: Done for constitutional, cardiovascular, GI, pulmonary, relevant findings as above. CURRENT MEDICATIONS: Reviewed that include DuoNeb, IV ceftazidime, Glucotrol, IV Levaquin. PHYSICAL EXAMINATION: Temperature 98.1, pulse 50, respiration 17, blood pressure 138/59, pulse 93% on 2 L. GENERAL APPEARANCE: Sitting up on bed, awake, a bit tired appearing. Eyes pupils equal. Conjunctivae pale. Neck JVD not raised. Mass not palpable. RESPIRATORY: Effort increased. Lungs decreased breath sounds. Cardiovascular first and second sounds normal. Some edema. ABDOMEN: Soft, nontender. Liver and spleen not palpable. Psychiatry: Alert and oriented times three. Mood and affect somewhat tired-appearing. INVESTIGATIONS: White count 23.5, hemoglobin 6.8, platelets potassium 4.7. BUN 101, creatinine 1.90. Accu-Cheks noted. ASSESSMENT: 1. Bilateral pneumonia suspect gram-negative organism causing acute hypoxic respiratory failure. Status post ventilator assisted now clinically improving. 2. Status post bronchoscopy. 3. Acute chronic obstructive pulmonary disease exacerbation. 4. Essential hypertension with urgency. Blood pressure much better controlled. 5. Acute on chronic congestive heart failure exacerbation from systolic and diastolic dysfunction. Ejection fraction about 40 to 50% secondary to hypertensive heart disease. 6. Severe secondary pulmonary hypertension secondary to chronic obstructive pulmonary disease. 7. Coronary artery disease with prior history of coronary bypass. 8. AICD with pacemaker. 9. Acute renal failure. Multifactorial probably acute tubular necrosis currently getting hemodialysis, slow to respond. 10.Chronic kidney disease, probably hypertensive nephrosclerosis stage IV from nephrosclerosis and nephropathy from diabetes. 11.Hyperlipidemia. 12.Hyperkalemia resolved. 13.Peripheral artery disease. 14.Metabolic acidosis. PLAN: Continue current medication and treatment plan. Antibiotics hopefully can be switched over to p.o. The patient bronchial washings have all come back negative. We will switch the patient over to 2 Ceftin if okay with Pulmonary. MMODL / IJN: [id number] /
[2017-05-24 03:45] LABS: Calcium 8.5 mg/dL (8.4-10.2); Magnesium 2.2 mg/dL (1.6-2.3); Phosphorous 5.9 mg/dL (2.5-4.5); Potassium 4.7 mmol/L (3.5-5.1)
[2017-05-24 07:05] LABS: Glucose,Whole Blood 187 mg/dL (75-99)
--- NOTE | 2017-05-24 09:08 | P.PN ---
Subjective Patient is seen in follow-up for acute kidney injury on chronic kidney disease. Patient has chronic kidney disease stage IIIB secondary to nephrosclerosis and diabetic kidney disease with baseline creatinine near 2. His creatinine peaked at 5.8 this admission. Patient appeared quite lethargic on May 13 and ABG was suggestive of mixed metabolic and respiratory acidosis. He was extubated May 19. He is off all vasopressors at this time. Urine output has been about 25-30 mL an hour but less at times. He is starting to tolerate oral intake. He is currently hemodialysis dependent. He has been bleeding from his dialysis catheter as well as the A-line site and hemoglobin has been running very low. It is 6.0 this morning. He did receive blood transfusion as well as a dose of DDAVP. Vital signs are stable. Patient is awake. General: The patient appeared well nourished and normally developed. Intubated. HEENT: Head exam is unremarkable. Neck is without jugular venous distension. LUNGS: Scattered rhonchi. Breath sounds decreased. HEART: Rate and Rhythm are regular. First and second heart sounds normal. No murmurs, rubs or gallops. ABDOMEN: Abdominal exam reveals normal bowel sounds. Non-tender and non- distended. EXTREMITITES: 1+ edema. Objective - Vital Signs Vital signs: Vital Signs Temp 98.1 F 05/24/17 07:10 Pulse 73 05/24/17 07:10 Resp 20 05/24/17 07:11 BP 139/64 05/24/17 07:10 Pulse Ox 98 05/24/17 07:10 Intake & Output 05/23/17 05/24/17 05/24/17 18:59 06:59 18:59 Intake Total 505 260 Output Total 516 125 Balance -11 135 Intake: IV 280 90 0.9 230 90 fortaz 50 Intake, IV Titration 50 Amount Desmopressin Inj 15 mcg 50 In Sodium Chloride 0.9% 50 ml @ 200 mls/hr IVPB ONCE ONE Rx#:[id number] Oral 225 120 Output: Urine 516 125 Other: Voiding Method Indwelling Catheter Indwelling Catheter Indwelling Catheter ABP, PAP, CO, CI - Last Documented Arterial Blood Pressure 95/90 - Labs CBC & Chem 7: 05/24/17 02:44 05/24/17 02:44 Labs: Abnormal Lab Results - Last 24 Hours (Table) 05/22/17 05/23/17 05/23/17 Range/Units 08:05 12:15 17:12 WBC (3.8-10.6) k/uL RBC (4.30-5.90) m/uL Hgb (13.0-17.5) gm/dL Hct (39.0-53.0) % MCHC (31.0-37.0) g/dL RDW (11.5-15.5) % Plt Count (150-450) k/uL Sodium (137-145) mmol/L BUN (9-20) mg/dL Creatinine (0.66-1.25) mg/dL Glucose (74-99) mg/dL POC Glucose (mg/dL) 171 H 239 H (75-99) mg/dL Phosphorus (2.5-4.5) mg/dL Crossmatch See Detail 05/23/17 05/24/17 05/24/17 Range/Units 20:23 02:44 02:44 WBC 24.2 H (3.8-10.6) k/uL RBC 2.25 L (4.30-5.90) m/uL Hgb 6.0 L* (13.0-17.5) gm/dL Hct 20.0 L* (39.0-53.0) % MCHC 30.0 L (31.0-37.0) g/dL RDW 16.0 H (11.5-15.5) % Plt Count 122 L (150-450) k/uL Sodium 134 L (137-145) mmol/L BUN 129 H* (9-20) mg/dL Creatinine 2.40 H (0.66-1.25) mg/dL Glucose 190 H (74-99) mg/dL POC Glucose (mg/dL) 251 H (75-99) mg/dL Phosphorus 5.9 H (2.5-4.5) mg/dL Crossmatch 05/24/17 Range/Units 06:53 WBC (3.8-10.6) k/uL RBC (4.30-5.90) m/uL Hgb (13.0-17.5) gm/dL Hct (39.0-53.0) % MCHC (31.0-37.0) g/dL RDW (11.5-15.5) % Plt Count (150-450) k/uL Sodium (137-145) mmol/L BUN (9-20) mg/dL Creatinine (0.66-1.25) mg/dL Glucose (74-99) mg/dL POC Glucose (mg/dL) 187 H (75-99) mg/dL Phosphorus (2.5-4.5) mg/dL Crossmatch Assessment and Plan Plan: Assessment: #1. Acute kidney injury secondary to ATN secondary to pneumonia and further worsened with the use of diuretics and MIC inhibitor. Patient was also hypotensive requiring vasopressors. Postvoid residual was 170. Creatinine peaked at 5.8 this admission. He was started on hemodialysis on May 14 and there is no evidence of renal recovery at this time. BUN is disproportionately elevated which is partially related to bleeding. #2. Chronic kidney disease stage IIIB secondary to nephrosclerosis and diabetic kidney disease with baseline creatinine near 2. #3. Hyperkalemia secondary to acute kidney injury and metabolic acidosis. Resolved. #4. Metabolic acidosis secondary to acute kidney injury. Respiratory acidosis present as well. Improved. #5. Pneumonia, maintain on antibiotics. #6. Anemia with severe iron deficiency, status post 3 doses of IV iron, DDAVP and blood transfusions. #7. Hyperphosphatemia secondary to acute kidney injury. Plan: Hemodialysis today with goal 2 liters ultrafiltration. Transfuse 1 unit of blood with dialysis. Femoral catheter to be discontinued after dialysis today. He will need a permacath. Maintain De Dios catheter for accurate I's and os. Maintain Renvela with meals. Maintain Aranesp.
[2017-05-24] MEDS: SODIUM BICARBONATE TAB 650 MG TAB PO SCH ×2 (09:13→21:13)
[2017-05-24] MEDS: glipiZIDE 10 MG TAB PO SCH (09:14)
[2017-05-24] MEDS: ISOSORBIDE MONONITRATE ER 30 MG TAB.ER.24H PO SCH (09:14)
[2017-05-24] MEDS: CARVEDILOL 12.5 MG TAB PO SCH ×2 (09:14→17:16)
[2017-05-24] MEDS: cloNIDine HCL 0.1 MG TAB PO SCH ×2 (09:14→21:13)
[2017-05-24] MEDS: FERROUS SULFATE 325 MG TAB PO SCH ×2 (09:14→17:16)
[2017-05-24] MEDS: VITAMIN E (DL,TOCOPHERYL ACET) 400 UNIT CAP PO SCH (09:14)
[2017-05-24] MEDS: predniSONE 20 MG TAB PO SCH (09:14)
[2017-05-24] MEDS: SEVELAMER 800 MG TAB PO SCH ×4 (09:15→17:16)
[2017-05-24] MEDS: ASPIRIN 81 MG PO SCH ×2 (09:15→21:13)
[2017-05-24] MEDS: CLOPIDOGREL 75 MG TAB PO SCH (09:15)
[2017-05-24] MEDS: hydrALAZINE HCL 25 MG TAB PO SCH ×2 (09:15→21:13)
[2017-05-24] MEDS: INSULIN LISPRO (humaLOG) 300 UNIT/3 ML VIAL SQ SCH ×4 (09:19→21:22)
[2017-05-24] MEDS: IPRATROPIUM-ALBUTEROL 3 ML NEB INHALATION SCH ×4 (09:42→19:16)
[2017-05-24 11:55] LABS: Glucose,Whole Blood 219 mg/dL (75-99)
[2017-05-24] MEDS: ENOXAPARIN 30 MG/0.3 ML SYRINGE SQ SCH (12:15)
--- NOTE | 2017-05-24 14:21 | P.PN ---
Subjective Progress Note Date: 05/24/17 Progress note dated 05/24/2017 This is a 67-year-old male undergoing hemodialysis we'll be went to see him. He was very confused. Did not know his primary doctor nor did he know his poll clerk. The patient will receive 1 unit of blood today. His most recent chest x-ray did show evidence of fluid overload likely from his renal failure. He is a 3 time a week hemodialysis patient. Other than that he is doing about the same. His chest x-ray has improved generally speaking. His respiratory status has improved as well. Objective - Vital Signs Vital signs: Vital Signs Temp 97.1 F L 05/24/17 14:10 Pulse 56 L 05/24/17 14:10 Resp 18 05/24/17 14:10 BP 128/56 05/24/17 14:10 Pulse Ox 99 05/24/17 14:10 Intake & Output 05/23/17 05/24/17 05/24/17 18:59 06:59 18:59 Intake Total 505 260 220 Output Total 516 125 Balance -11 135 220 Weight 87.6 kg Intake: IV 280 90 0.9 230 90 fortaz 50 Intake, IV Titration 50 Amount Desmopressin Inj 15 mcg 50 In Sodium Chloride 0.9% 50 ml @ 200 mls/hr IVPB ONCE ONE Rx#:[id number] Oral 225 120 220 Blood Product 0 Rc As-1 Unit 0 [id number] Output: Urine 516 125 Other: Voiding Method Indwelling Catheter Indwelling Catheter Indwelling Catheter ABP, PAP, CO, CI - Last Documented Arterial Blood Pressure 95/90 - Exam No acute distress, confused. HEENT examination is grossly unremarkable. Mucous membranes are moist. No oral lesions. Neck supple. Full range of motion. No adenopathy thyromegaly or neck vein distention. Cardiovascular examination reveals regular rhythm rate. S1-S2 normal. No S3 or S4. No discernible murmur noted. Heart sounds are distant. Lungs reveal bibasilar crackles. Breath sounds are diminished but equal bilaterally. No rhonchi. No wheezes. Abdomen soft bowel sounds are heard. No masses or tenderness. Extremities are intact. No cyanosis or clubbing. Slight edema noted.. Skin is reveals multiple areas of ecchymoses. Neurologic examination was not able to be performed. - Labs CBC & Chem 7: 05/24/17 02:44 05/24/17 02:44 Labs: Abnormal Lab Results - Last 24 Hours (Table) 05/22/17 05/23/17 05/23/17 Range/Units 08:05 17:12 20:23 WBC (3.8-10.6) k/uL RBC (4.30-5.90) m/uL Hgb (13.0-17.5) gm/dL Hct (39.0-53.0) % MCHC (31.0-37.0) g/dL RDW (11.5-15.5) % Plt Count (150-450) k/uL Sodium (137-145) mmol/L BUN (9-20) mg/dL Creatinine (0.66-1.25) mg/dL Glucose (74-99) mg/dL POC Glucose (mg/dL) 239 H 251 H (75-99) mg/dL Phosphorus (2.5-4.5) mg/dL Crossmatch See Detail 05/24/17 05/24/17 05/24/17 Range/Units 02:44 02:44 06:53 WBC 24.2 H (3.8-10.6) k/uL RBC 2.25 L (4.30-5.90) m/uL Hgb 6.0 L* (13.0-17.5) gm/dL Hct 20.0 L* (39.0-53.0) % MCHC 30.0 L (31.0-37.0) g/dL RDW 16.0 H (11.5-15.5) % Plt Count 122 L (150-450) k/uL Sodium 134 L (137-145) mmol/L BUN 129 H* (9-20) mg/dL Creatinine 2.40 H (0.66-1.25) mg/dL Glucose 190 H (74-99) mg/dL POC Glucose (mg/dL) 187 H (75-99) mg/dL Phosphorus 5.9 H (2.5-4.5) mg/dL Crossmatch 05/24/17 Range/Units 11:54 WBC (3.8-10.6) k/uL RBC (4.30-5.90) m/uL Hgb (13.0-17.5) gm/dL Hct (39.0-53.0) % MCHC (31.0-37.0) g/dL RDW (11.5-15.5) % Plt Count (150-450) k/uL Sodium (137-145) mmol/L BUN (9-20) mg/dL Creatinine (0.66-1.25) mg/dL Glucose (74-99) mg/dL POC Glucose (mg/dL) 219 H (75-99) mg/dL Phosphorus (2.5-4.5) mg/dL Crossmatch Microbiology - Last 24 Hours (Table) 05/14/17 11:10 Fungal Culture - Preliminary Bronchial Washings - Random Assessment and Plan (1) Anemia Current Visit: Yes Status: Acute Code(s): D64.9 - ANEMIA, UNSPECIFIED SNOMED Code(s): 450342088 (2) CHF exacerbation Current Visit: Yes Status: Acute Code(s): I50.9 - HEART FAILURE, UNSPECIFIED SNOMED Code(s): 58067228 (3) Congestive heart failure Current Visit: Yes Status: Acute Code(s): I50.9 - HEART FAILURE, UNSPECIFIED SNOMED Code(s): 48814440 (4) Pneumonia Current Visit: Yes Status: Acute Code(s): J18.9 - PNEUMONIA, UNSPECIFIED ORGANISM SNOMED Code(s): 955454172 (5) Renal failure (ARF), acute on chronic Current Visit: Yes Status: Acute Code(s): N17.9 - ACUTE KIDNEY FAILURE, UNSPECIFIED; N18.9 - CHRONIC KIDNEY DISEASE, UNSPECIFIED SNOMED Code(s): 153596570 (6) AICD (automatic cardioverter/defibrillator) present Current Visit: No Status: Acute Code(s): Z95.810 - PRESENCE OF AUTOMATIC ( IMPLANTABLE) CARDIAC DEFIBRILLATOR SNOMED Code(s): 650353466 (7) Acute blood loss anemia Current Visit: No Status: Acute Code(s): D62 - ACUTE POSTHEMORRHAGIC ANEMIA SNOMED Code(s): 826199697 (8) At risk for readmission to hospital Current Visit: No Status: Acute Code(s): Z91.89 - OTH PERSONAL RISK FACTORS , NOT ELSEWHERE CLASSIFIED SNOMED Code(s): 940276203 (9) CAD (coronary artery disease) Current Visit: No Status: Acute Code(s): I25.10 - ATHSCL HEART DISEASE OF [place] CORONARY ARTERY W/O ANG PCTRS SNOMED Code(s): 18156334 (10) Chronic renal disease Current Visit: No Status: Acute Code(s): N18.9 - CHRONIC KIDNEY DISEASE, UNSPECIFIED SNOMED Code(s): 155850342 (11) Diabetes Current Visit: No Status: Acute Code(s): E11.9 - TYPE 2 DIABETES MELLITUS WITHOUT COMPLICATIONS SNOMED Code(s): 46129263 (12) Diastolic CHF, acute on chronic Current Visit: No Status: Acute Code(s): I50.33 - ACUTE ON CHRONIC DIASTOLIC (CONGESTIVE) HEART FAILURE SNOMED Code(s): 881416544 (13) Failure of outpatient treatment Current Visit: No Status: Acute Code(s): Z78.9 - OTHER SPECIFIED HEALTH STATUS SNOMED Code(s): 215304246 (14) HTN (hypertension) Current Visit: No Status: Acute Code(s): I10 - ESSENTIAL (PRIMARY) HYPERTENSION SNOMED Code(s): 11206158 (15) Hx of CABG Current Visit: No Status: Acute Code(s): Z95.1 - PRESENCE OF AORTOCORONARY BYPASS GRAFT SNOMED Code(s): 371267929 (16) Hyperkalemia Current Visit: No Status: Acute Code(s): E87.5 - HYPERKALEMIA SNOMED Code( s): 94881858 (17) Hyperlipemia Current Visit: No Status: Acute Code(s): E78.5 - HYPERLIPIDEMIA, UNSPECIFIED SNOMED Code(s): 37186868 (18) Ischemic cardiomyopathy Current Visit: No Status: Acute Code(s): I25.5 - ISCHEMIC CARDIOMYOPATHY SNOMED Code(s): 195772008 (19) Severe anemia Current Visit: No Status: Acute Code(s): D64.9 - ANEMIA, UNSPECIFIED SNOMED Code(s): 573555390 Plan: Plan dated 05/24/2017 The patient is getting dialysis today. The patient will also get an end up getting 1 unit of blood. From the pulmonary standpoint, he seems reasonable. Doesn't appear to be any distress. Only on 2 L. We'll continue to follow. Prognosis is guarded. He was very confused today. He did not know his primary doctor or his poll clerk.. Time with Patient: Less than 30
--- NOTE | 2017-05-24 15:04 | P.PN ---
Progress Note - Text Progress Note Date: 05/24/17 DATE OF SERVICE: 05/24/2017 PRESENTING COMPLAINT: shortness of breath HISTORY OF PRESENT ILLNESS: 67-year-old male presented with increasing edema decreased appetite feeling run down and shortness of breath.diagnostic imaging revealed left lower lobe pneumonia, 2 days after admission patient acutely decompensated with acute hypoxic respiratory failureand was subsequently intubated and taken to the ICU. INTERVAL HISTORY: 05/24/2017: Patient seen in follow-up today sitting up in bed, continues to not eat much, not talking much dietitian to see patient noting appetite extremely low, patient refusing to eat. Suggested an appetite stimulant. Breathing easier, hemoglobin 6.0 today we'll receive a unit of blood during dialysis. Patient scheduled for dialysis today 2 L of ultrafiltration. 05/23/2017: Patient seen in follow-up, on 6 [facility]. Not eating very much sitting up, primarily eating ice cream. Awake not very conversant. Appears tired. 05/22/2017: Patient seen in follow-up, hemoglobin dropped to 5.8 no external bleeding noted. Getting a unit of blood, been tolerating a clear liquid diet. Breathing is improved. Sitting up in chair mode in the bed. Hemodialysis is being done and evaluated day by day by nephrology. 05/21/2017: Patient seen in follow-up in the ICU, sitting up in bed is in chair mode appears comfortable. Not talking much, had some juice. at the bedside. Hemoglobin is 7.0 this morning, blood pressure stable, not tachycardic, no increasing oxygen demand, per nephrology's note recheck and if less than 7 transfuse 1 unit. The need for Hemodialysis will be evaluated daily by nephrology. 05/20/2017: patient seen in follow-up in the ICU, sitting up, extubated appears comfortable.Past a swallowing eval attempting to eat some soft foods. tube feedings stopped at the bedside.plans to do another round of hemodialysis today goal of 1 L of ultrafiltration. 05/19/2017: patient seen in follow-up in the ICU, remains intubated, in the middle of an SBT and sedation holiday, calmly following instructions appears comfortableawait for Dr. Ramirez to evaluate patient readiness for extubation. Current drips include tube feeding at 60 mL's an hour, clevidipine, insulin drip , propofol which is on hold, invasive lines include De Dios catheter, peripheral IVs. 05/18/2017 patient seen in follow-up in the ICU, currently intubated, in the middle of an SBT, sedation holiday, does not seem to be able to follow any instructions. No plans for extubation today. current drips include tube feeding at 60 mL an hour , clevidipine, insulin drip, titrate to effect, propofol, invasive lines include De Dios catheter peripheral IVs. Ventilator settings before meals, FiO2 45%, PEEP of 5 rate of 20. REVIEW OF SYSTEMS: Done for constitutional cardiovascular GI pulmonary with relevant findings as above. CURRENT MEDICATIONS [place], aspirin, Lipitor, Coreg, ceftazidime IV piggyback, clonidine, Plavix, Aranesp, Lovenox, glipizide 10 mg by mouth twice a day,hydralazine 25 mg by mouth twice a day ,insulin , levofloxacin, Ativan, Protonix, prednisone 20 mg by mouth daily, Renvela 800 mg by mouth 3 times a day, sodium bicarbonate 650 mg by mouth twice a day. PHYSICAL EXAM VITAL SIGNS: Temperature 98.0, pulse 60, respiratory rate 20, blood pressure 142/58, oxygen saturation 100% on 4 L. GENERAL APPEARANCE: . sitting up in bed appears tired and doesn't talk much EYES: Pupils equal. Conjunctiva normal. NECK: JVD unable to assess Mass not palpable. RESPIRATORY: respiratory effort normal, lung sounds decreased bilaterally CARDIOVASCULAR: First and second sounds normal. Generalized edema ABDOMEN: Soft. Liver and spleen not palpable. No tenderness. No mass palpable. PSYCHIATRY: Answer simple straightforward questions mood and affect a little flat, doesn't talk much INVESTIGATIONS: White blood cell count 24.2, hemoglobin 6.0, hematocrit 20.0, sodium 134, BUN 129, creatinine 2.40, Accu-Cheks last 24 hours 187-251 ASSESSMENT: -Bilateral pneumonia, suspect gram-negative organism causing acute hypoxic respiratory failure, status post ventilator assisted, now clinically improving -Status post bronchoscopy. -Acute chronic obstructive pulmonary disease exacerbation. -Essential hypertension with urgency, blood pressure better controlled -Acute on chronic congestive heart failure probably systolic and diastolic dysfunction ejection fraction 40 to 50% secondary to hypertensive heart disease -Severe secondary pulmonary hypertension secondary to chronic obstructive pulmonary disease. -Coronary artery disease with prior history of coronary artery bypass grafting. -AICD with pacemaker in place. -acute renal failure multifactorial probably acute tubular necrosis now hemodialysis dependent, slow to respond -Chronic kidney disease probably hypertensive nephrosclerosis stage 4 from diabetic nephropathy and hypertensive nephrosclerosis, worsening -Hyperlipidemia. -Hyperkalemia, resolved -Peripheral arterial disease -Metabolic acidosis, improving PLAN: We'll look for pulmonary to switch antibiotics to by mouth soon. Hemodialysis on a day by day evaluation per nephrology. Bronchial washings negative. Plan of care discussed at the bedside, will follow closely. AIDS SOCIAL WORKER statement: Patient was seen and examined by nurse practitioner Perri Fernández and all elements of the case discussed with attending Dr. Jerez
[2017-05-24 17:06] LABS: Glucose,Whole Blood 151 mg/dL (75-99)
[2017-05-24] MEDS: LEVOFLOXACIN 500MG-D5W PMX 500 MG in DEXTROSE/WATER 1 100ML.BAG IVPB SCH (17:58)
[2017-05-24 21:10] LABS: Glucose,Whole Blood 139 mg/dL (75-99)
[2017-05-24] MEDS: ATORVASTATIN 40 MG TAB PO SCH (21:13)
[2017-05-24] MEDS: FOLIC ACID 1 MG TAB PO SCH (21:14)
--- NOTE | 2017-05-25 00:30 | PN ---
PROGRESS NOTE ATTENDING NOTE: This patient was seen and examined by me. I discussed the case with my nurse practitioner, Ms. Fernández. The patient was moved out of the ICU to the cardiology selective floor. Not keen to eat much. Somewhat tired. The patient has already received a unit of blood during dialysis. The patient had 2 L of fluid removed during dialysis. PHYSICAL EXAMINATION: Afebrile. Pulse 62, respiration 16, blood pressure 131/57, pulse ox 99% on oxygen. GENERAL APPEARANCE: Tired-appearing. Awake but lethargic. LUNGS: Decreased breath sounds. CARDIOVASCULAR: First and second sounds normal. Some edema is present. PSYCH: Does answer questions. INVESTIGATIONS: White count 24.2, hemoglobin 6, potassium 4.7. ASSESSMENT: 1. Bilateral pneumonia with acute hypoxic respiratory failure, status post ventilator assistance, clinically improving. 2. Acute renal failure, currently on hemodialysis. Had 2 L of fluid removed. 3. Medical debility. Patient encouraged to increase his oral intake. The patient did get a unit of blood during dialysis. The patient has now received a total of 4 units of blood. Prognosis guarded. Will follow. MMODL / IJN: [id number] /
[2017-05-25] MEDS: LORazepam 2 MG/ML INJ IV PRN (04:04)
[2017-05-25] MEDS: HYDROmorphone 1 MG/ML 1 ML SYRINGE IVP PRN (04:44)
[2017-05-25 06:09] LABS: Glucose,Whole Blood 73 mg/dL (75-99)
[2017-05-25] MEDS: INSULIN LISPRO (humaLOG) 300 UNIT/3 ML VIAL SQ SCH ×4 (07:10→21:08)
[2017-05-25] MEDS: glipiZIDE 10 MG TAB PO SCH (07:10)
[2017-05-25] MEDS: IPRATROPIUM-ALBUTEROL 3 ML NEB INHALATION SCH ×4 (08:28→19:37)
[2017-05-25] MEDS: ENOXAPARIN 30 MG/0.3 ML SYRINGE SQ SCH (08:37)
[2017-05-25] MEDS: hydrALAZINE HCL 25 MG TAB PO SCH (08:37)
[2017-05-25] MEDS: CARVEDILOL 12.5 MG TAB PO SCH ×3 (08:37→17:24)
[2017-05-25] MEDS: VITAMIN E (DL,TOCOPHERYL ACET) 400 UNIT CAP PO SCH (08:38)
[2017-05-25] MEDS: ASPIRIN 81 MG PO SCH (08:38)
[2017-05-25] MEDS: cloNIDine HCL 0.1 MG TAB PO SCH ×2 (08:38→20:58)
[2017-05-25] MEDS: FERROUS SULFATE 325 MG TAB PO SCH ×3 (08:38→17:24)
[2017-05-25] MEDS: SODIUM BICARBONATE TAB 650 MG TAB PO SCH ×2 (08:38→20:58)
[2017-05-25] MEDS: ISOSORBIDE MONONITRATE ER 30 MG TAB.ER.24H PO SCH (08:38)
[2017-05-25] MEDS: SEVELAMER 800 MG TAB PO SCH ×4 (08:38→17:25)
[2017-05-25] MEDS: predniSONE 20 MG TAB PO SCH (08:38)
[2017-05-25] MEDS: CLOPIDOGREL 75 MG TAB PO SCH (08:39)
--- NOTE | 2017-05-25 09:21 | P.PN ---
Subjective Patient is seen in follow-up for acute kidney injury on chronic kidney disease. Patient has chronic kidney disease stage IIIB secondary to nephrosclerosis and diabetic kidney disease with baseline creatinine near 2. His creatinine peaked at 5.8 this admission. Patient appeared quite lethargic on May 13 and ABG was suggestive of mixed metabolic and respiratory acidosis. He was extubated May 19. He is off all vasopressors at this time. Urine output is documented at 350 mL in the last 24 hours. He is starting to tolerate oral intake but appetite is poor. He is currently hemodialysis dependent. He has been bleeding from his dialysis catheter as well as the A-line site and hemoglobin has been running very low. It was 6.0 yesterday morning and he did receive blood transfusion with dialysis. Vital signs are stable. Patient is awake. General: The patient appeared well nourished and normally developed. Intubated. HEENT: Head exam is unremarkable. Neck is without jugular venous distension. LUNGS: Scattered rhonchi. Breath sounds decreased. HEART: Rate and Rhythm are regular. First and second heart sounds normal. No murmurs, rubs or gallops. ABDOMEN: Abdominal exam reveals normal bowel sounds. Non-tender and non- distended. EXTREMITITES: 1+ edema. Objective - Vital Signs Vital signs: Vital Signs Temp 98.6 F 05/25/17 08:00 Pulse 80 05/25/17 08:31 Resp 24 05/25/17 08:00 BP 127/64 05/25/17 08:00 Pulse Ox 92 L 05/25/17 08:31 Intake & Output 05/24/17 05/25/17 05/25/17 18:59 06:59 18:59 Intake Total 730 0 Output Total 350 Balance 730 -350 0 Weight 87.6 kg 88 kg Intake: IV 150 fortaz 50 levaquin 100 Oral 270 0 Blood Product 310 Rc As-1 Unit 310 [id number] Output: Urine 350 Other: Voiding Method Indwelling Catheter Indwelling Catheter Indwelling Catheter ABP, PAP, CO, CI - Last Documented Arterial Blood Pressure 95/90 - Labs CBC & Chem 7: 05/24/17 02:44 05/24/17 02:44 Labs: Abnormal Lab Results - Last 24 Hours (Table) 05/22/17 05/24/17 05/24/17 Range/Units 08:05 11:54 16:52 POC Glucose (mg/dL) 219 H 151 H (75-99) mg/dL Crossmatch See Detail 05/24/17 05/25/17 Range/Units 21:08 06:05 POC Glucose (mg/dL) 139 H 73 L (75-99) mg/dL Crossmatch Microbiology - Last 24 Hours (Table) 05/14/17 11:10 Fungal Culture - Preliminary Bronchial Washings - Random Assessment and Plan Plan: Assessment: #1. Acute kidney injury secondary to ATN secondary to pneumonia and further worsened with the use of diuretics and MIC inhibitor. Patient was also hypotensive requiring vasopressors. Postvoid residual was 170. Creatinine peaked at 5.8 this admission. He was started on hemodialysis on May 14 and there is no evidence of renal recovery at this time. BUN is disproportionately elevated which is partially related to bleeding. #2. Chronic kidney disease stage IIIB secondary to nephrosclerosis and diabetic kidney disease with baseline creatinine near 2. #3. Hyperkalemia secondary to acute kidney injury and metabolic acidosis. Resolved. #4. Metabolic acidosis secondary to acute kidney injury. Respiratory acidosis present as well. Improved. #5. Pneumonia, maintain on antibiotics. #6. Anemia with severe iron deficiency, status post 3 doses of IV iron, DDAVP and blood transfusions. #7. Hyperphosphatemia secondary to acute kidney injury. Plan: Hemodialysis today with goal 2 liters ultrafiltration. Check labs now. If hemoglobin less than 7, will transfuse another unit of blood with dialysis. Awaiting vascular surgery to remove the femoral catheter and to insert a permacath. Maintain De Dios catheter for accurate I's and os. Maintain Renvela with meals. Maintain Aranesp. Add Lasix 80 mg twice daily.
[2017-05-25 09:41] LABS: Anisocytosis Slight; CH 27.8; CHCM 30.7; HDW 2.78; Hypochromasia Moderate; MCH 27.5 pg (25.0-35.0); MCHC 30.2 g/dL (31.0-37.0); MCV 91.2 fL (80.0-100.0); RBC 2.18 m/uL (4.30-5.90); RDW 18.4 % (11.5-15.5); WBC 17.5 k/uL (3.8-10.6)
[2017-05-25 09:42] LABS: HCT 19.9 % (39.0-53.0)
[2017-05-25 10:07] LABS: Calcium 8.1 mg/dL (8.4-10.2); Potassium 4.3 mmol/L (3.5-5.1)
[2017-05-25] MEDS: HYDROmorphone 0.5 MG/0.5 ML SYRINGE IVP PRN (10:08)
--- NOTE | 2017-05-25 10:19 | P.PN ---
Subjective Progress Note Date: 05/25/17 Principal diagnosis: Acute hypoxic respiratory failure secondary to pneumonia, congestive heart failure, underlying COPD and fluid volume overload. The patient is seen again today 05/25/2017 in follow-up on the selective care unit. He remains alert, confused to place and time. He is currently on 6 L of high flow nasal cannula to maintain O2 saturations in the 90s. He's been afebrile hemodynamically stable. White count improved to 17.5. Hemoglobin remains at 6.0. Platelet count 123,000. He has received a total of 2 units of packed red blood cells this admission thus far. He remains on hemodialysis per nephrology. He has a right femoral temporary dialysis catheter in place. The plan is for hemodialysis today with a goal of 2 L ultrafiltration. He may require 1 unit of packed blood cells during the dialysis as well. Objective - Vital Signs Vital signs: Vital Signs Temp 98.6 F 05/25/17 08:00 Pulse 80 05/25/17 08:31 Resp 24 05/25/17 08:00 BP 127/64 05/25/17 08:00 Pulse Ox 92 L 05/25/17 08:31 Intake & Output 05/24/17 05/25/17 05/25/17 18:59 06:59 18:59 Intake Total 730 0 Output Total 350 Balance 730 -350 0 Weight 87.6 kg 88 kg Intake: IV 150 fortaz 50 levaquin 100 Oral 270 0 Blood Product 310 Rc As-1 Unit 310 [id number] Output: Urine 350 Other: Voiding Method Indwelling Catheter Indwelling Catheter Indwelling Catheter ABP, PAP, CO, CI - Last Documented Arterial Blood Pressure 95/90 - Exam GENERAL EXAM: Alert, confused, fairly comfortable in no apparent distress. HEAD: Normocephalic. EYES: Normal reaction of pupils, equal size. NOSE: Clear with pink turbinates. THROAT: No erythema or exudates. NECK: No masses, no JVD. CHEST: No chest wall deformity. LUNGS: Equal air entry with crackles in the bilateral posterior bases.. CVS: S1 and S2 normal with no audible murmur, regular rhythm. ABDOMEN: No hepatosplenomegaly, normal bowel sounds, no guarding or rigidity. SPINE: No scoliosis or deformity SKIN: No rashes CENTRAL NERVOUS SYSTEM: No focal deficits, tone is normal in all 4 extremities. EXTREMITIES: There is a right femoral temporary dialysis catheter in place. There is no peripheral edema. No clubbing, no cyanosis. Peripheral pulses are intact. - Labs CBC & Chem 7: 05/25/17 09:15 05/24/17 02:44 Labs: Abnormal Lab Results - Last 24 Hours (Table) 05/22/17 05/24/17 05/24/17 Range/Units 08:05 11:54 16:52 WBC (3.8-10.6) k/uL RBC (4.30-5.90) m/uL Hgb (13.0-17.5) gm/dL Hct (39.0-53.0) % MCHC (31.0-37.0) g/dL RDW (11.5-15.5) % Plt Count (150-450) k/uL POC Glucose (mg/dL) 219 H 151 H (75-99) mg/dL Crossmatch See Detail 05/24/17 05/25/17 05/25/17 Range/Units 21:08 06:05 09:15 WBC 17.5 H (3.8-10.6) k/uL RBC 2.18 L (4.30-5.90) m/uL Hgb 6.0 L* (13.0-17.5) gm/dL Hct 19.9 L* (39.0-53.0) % MCHC 30.2 L (31.0-37.0) g/dL RDW 18.4 H (11.5-15.5) % Plt Count 123 L (150-450) k/uL POC Glucose (mg/dL) 139 H 73 L (75-99) mg/dL Crossmatch Microbiology - Last 24 Hours (Table) 05/14/17 11:10 Fungal Culture - Preliminary Bronchial Washings - Random Assessment and Plan Assessment: Impression: 1 bilateral pneumonia worse on the left with secondary acute hypoxic respiratory failure. Resolved. 2 acute COPD exacerbation secondary to left lung pneumonia, improving . Patient was extubated 3 hypertension presently under control with multiple medications as noted. 4 diastolic congestion heart failure, ischemic cardiomyopathy and the most recent echocardiogram shows a low normal ejection fraction with an EF around 50- 55%, severely dilated LA, severe pulmonary hypertension with a PA pressure of 68 5 coronary artery disease with previous coronary artery bypass surgery 6 history of cardiac block status post pacemaker insertion/AICD insertion 7 acute on top of chronic renal failure, Being addressed by nephrology. 8 chronic renal failure with stage III to 4 chronic kidney disease, receiving hemodialysis. 9 diabetes mellitus, currently in size Blood sugar control 10 hypertension, oral meds will be adjusted accordingly today. 11 hyperlipidemia. 12 hyperkalemia, improved 15 peripheral vascular disease 14 previous history of GI bleed 15 chronic iron deficiency 16 metabolic acidosis currently improved 17 Address nutritional support via oral intake 18 bleeding from catheter insertion site in the right femoral vein, currently inactive 19 anemia where the patient's hemoglobin is 6.0, transfusion with hemodialysis. Plan: The patient was seen and evaluated by Dr. Ahuja. We will continue with his current medications. He remains on antibiotics in the form of Levaquin and ceftazidime. During her bronchodilators. He remains on Lovenox for DVT prophylaxis. The plan is for repeat hemodialysis today. We'll titrate down his FiO2 will maintain O2 saturations in the 90s. Diuretics and bicarb per nephrology The patient's overall prognosis remains guarded. We'll continue to follow make further recommendations based on his clinical status. I, the cosigning physician, have performed a history and physical examination of the patient. Lung sounds have crackles in the bilateral posterior bases. Diminished throughout. I have discussed the findings and assessment with my nurse practitioner, Ashleigh Byrd. I have reviewed the nurse practitioner's note and agree with the documented findings and plan of care.
[2017-05-25] MEDS ORDERED: HEPARIN SODIUM,PORCINE 5,000 UNIT/ML 1 ML VIAL ONE ×2 (11:36→16:30)
[2017-05-25 11:57] LABS: Glucose,Whole Blood 101 mg/dL (75-99)
--- NOTE | 2017-05-25 16:23 | P.PN ---
Progress Note - Text Progress Note Date: 05/25/17 DATE OF SERVICE: 05/25/2017 PRESENTING COMPLAINT: shortness of breath HISTORY OF PRESENT ILLNESS: 67-year-old male presented with increasing edema decreased appetite feeling run down and shortness of breath.diagnostic imaging revealed left lower lobe pneumonia, 2 days after admission patient acutely decompensated with acute hypoxic respiratory failureand was subsequently intubated and taken to the ICU. INTERVAL HISTORY: 05/25/2017: Patient seen in follow-up today, reclining in the bed, appetite continues to be low, very lethargic today, received half milligram of Ativan for agitation, sounds more congested today 80 mg of Lasix twice daily added per nephrology continues to bleed from his dialysis catheter in the right groin as well as the arterial line site. hemoglobin 6.0 again today plans for hemodialysis today as well to receive a unit of blood during dialysis, plans for 2 L of ultrafiltration today. Tentative plans for removal of the femoral catheter and insertion of the permacath tomorrow. 05/24/2017: Patient seen in follow-up today sitting up in bed, continues to not eat much, not talking much dietitian to see patient noting appetite extremely low, patient refusing to eat. Suggested an appetite stimulant. Breathing easier, hemoglobin 6.0 today we'll receive a unit of blood during dialysis. Patient scheduled for dialysis today 2 L of ultrafiltration. 05/23/2017: Patient seen in follow-up, on [address] [place] [address]. Not eating very much sitting up, primarily eating ice cream. Awake not very conversant. Appears tired. 05/22/2017: Patient seen in follow-up, hemoglobin dropped to 5.8 no external bleeding noted. Getting a unit of blood, been tolerating a clear liquid diet. Breathing is improved. Sitting up in chair mode in the bed. Hemodialysis is being done and evaluated day by day by nephrology. 05/21/2017: Patient seen in follow-up in the ICU, sitting up in bed is in chair mode appears comfortable. Not talking much, had some juice. at the bedside. Hemoglobin is 7.0 this morning, blood pressure stable, not tachycardic, no increasing oxygen demand, per nephrology's note recheck and if less than 7 transfuse 1 unit. The need for Hemodialysis will be evaluated daily by nephrology. 05/20/2017: patient seen in follow-up in the ICU, sitting up, extubated appears comfortable.Past a swallowing eval attempting to eat some soft foods. tube feedings stopped at the bedside.plans to do another round of hemodialysis today goal of 1 L of ultrafiltration. 05/19/2017: patient seen in follow-up in the ICU, remains intubated, in the middle of an SBT and sedation holiday, calmly following instructions appears comfortableawait for Dr. Ramirez to evaluate patient readiness for extubation. Current drips include tube feeding at 60 mL's an hour, clevidipine, insulin drip , propofol which is on hold, invasive lines include De Dios catheter, peripheral IVs. 05/18/2017 patient seen in follow-up in the ICU, currently intubated, in the middle of an SBT, sedation holiday, does not seem to be able to follow any instructions. No plans for extubation today. current drips include tube feeding at 60 mL an hour , clevidipine, insulin drip, titrate to effect, propofol, invasive lines include De Dios catheter peripheral IVs. Ventilator settings before meals, FiO2 45%, PEEP of 5 rate of 20. REVIEW OF SYSTEMS: Done for constitutional cardiovascular GI pulmonary with relevant findings as above. CURRENT MEDICATIONS Halsey, aspirin, Lipitor, Coreg, ceftazidime IV piggyback, clonidine, Plavix, Aranesp, Lovenox, glipizide 10 mg by mouth twice a day,hydralazine 25 mg by mouth twice a day ,insulin , levofloxacin, Ativan, Protonix, prednisone 20 mg by mouth daily, Renvela 800 mg by mouth 3 times a day, sodium bicarbonate 650 mg by mouth twice a day. PHYSICAL EXAM VITAL SIGNS: Temperature 98.0, pulse 60, respiratory rate 20, blood pressure 142/58, oxygen saturation 100% on 4 L. GENERAL APPEARANCE: . sitting up in bed appears tired and lethargic EYES: Pupils equal. Conjunctiva normal. NECK: JVD unable to assess Mass not palpable. RESPIRATORY: respiratory effort normal, lung sounds decreased and coarse bronchial breath sounds bilaterally CARDIOVASCULAR: First and second sounds normal. Generalized edema ABDOMEN: Soft. Liver and spleen not palpable. No tenderness. No mass palpable. PSYCHIATRY: Answer simple straightforward questions mood and affect a little flat, doesn't talk much INVESTIGATIONS: White blood cell count 17.5, hemoglobin 6.0, platelet count 123, sodium 136, BUN 93, creatinine 2.52, Accu-Cheks noted. ASSESSMENT: -Bilateral pneumonia, suspect gram-negative organism causing acute hypoxic respiratory failure, status post ventilator assisted, now clinically improving -Status post bronchoscopy. -Acute chronic obstructive pulmonary disease exacerbation. -Essential hypertension with urgency, blood pressure better controlled -Acute on chronic congestive heart failure probably systolic and diastolic dysfunction ejection fraction 40 to 50% secondary to hypertensive heart disease -Severe secondary pulmonary hypertension secondary to chronic obstructive pulmonary disease. -Coronary artery disease with prior history of coronary artery bypass grafting. -AICD with pacemaker in place. -acute renal failure multifactorial probably acute tubular necrosis now hemodialysis dependent, slow to respond -Chronic kidney disease probably hypertensive nephrosclerosis stage 4 from diabetic nephropathy and hypertensive nephrosclerosis, worsening -Hyperlipidemia. -Hyperkalemia, resolved -Peripheral arterial disease -Metabolic acidosis, improving PLAN: Continue IV antibiotics of Levaquin and ceftazidime, bronchodilators, hemodialysis again today with 2 L of ultrafiltration and a unit of packed red blood cells during dialysis, 80 mg of Lasix twice a day. Prognosis remains very guarded. Plan of care discussed with the family at the bedside we will continue to follow closely. CHANGE MANAGEMENT DIRECTOR statement: Patient was seen and examined by nurse practitioner Perri Fernández and all elements of the case discussed with attending Dr. Jerez
[2017-05-25] MEDS: SCOPOLAMINE 1.5MG/72HR PATCH TRANSDERM SCH (16:45)
[2017-05-25] MEDS: FUROSEMIDE 80 MG TAB PO SCH (16:47)
[2017-05-25 17:11] LABS: Glucose,Whole Blood 129 mg/dL (75-99)
--- NOTE | 2017-05-25 20:43 | PN ---
PROGRESS NOTE DATE OF SERVICE: May 25, 2017. ATTENDING NOTE: This patient is seen and examined by me. I discussed with nurse practitioner Ms. Fernández. This is a patient with pneumonia status post being on a ventilator. Received some Dilaudid this morning for generalized pain. Rather lethargic. Did not eat much. EXAMINATION: Some lungs crackles are present. Patient is somewhat lethargic. INVESTIGATIONS: White count 17.5, hemoglobin is 6. LABORATORY DATA: Potassium 4.3, glucose 57. ASSESSMENT: 1. Hypoglycemia, probably from decreased oral intake. Will DC patient's glyburide. 2. Hypotension. Blood pressure is running on the lower side. Will discontinue the hydralazine. 3. Patient is somewhat also drowsy. Will discontinue the scopolamine patch also. 4. The patient has been oozing from the dialysis catheter site. Aspirin will be discontinued. Dr. Anne has been consulted to put in a dialysis catheter. Await hemodialysis. MMODL / IJN: [id number] /
[2017-05-25] MEDS: ATORVASTATIN 40 MG TAB PO SCH (20:58)
[2017-05-25] MEDS: FOLIC ACID 1 MG TAB PO SCH (20:58)
[2017-05-25 21:04] LABS: Glucose,Whole Blood 205 mg/dL (75-99)
[2017-05-25] MEDS ORDERED: cloNIDine 0.1 MG/24HR PATCH 1 PATCH PATCH TRANSDERM SCH (22:45)
--- NOTE | 2017-05-25 23:35 | CT ---
EXAMINATION TYPE: CT brain wo con DATE OF EXAM: 05/25/2017 COMPARISON: 05/18/2017 HISTORY: AMS CT DLP: 1199 mGycm Automated exposure control for dose reduction was used. FINDINGS: There is mild cerebral cortical atrophy. There is no mass effect nor midline shift. There is no sign of intracranial hemorrhage. The calvarium is intact. There is mucosal thickening throughout most of t he mastoid air cells. There is partial opacification of the middle ear cavity bilaterally. IMPRESSION: NO ACUTE INTRACRANIAL ABNORMALITY. BILATERAL MASTOIDITIS AND OTITIS INTERNA. THERE IS CLEARING OF ETH MOID SINUSITIS COMPARED TO OLD EXAM.
--- NOTE | 2017-05-25 23:41 | XR ---
EXAMINATION TYPE: XR chest 1V portable DATE OF EXAM: 05/25/2017 COMPARISON: 05/23/2017 HISTORY: Fluid overload TECHNIQUE: Single frontal view of the chest is obtained. FINDINGS: There is no heart failure nor confluent pneumonic infiltrate. Costophrenic angles are maru r. Heart is enlarged. There are sternal wires. There is left axillary pacemaker with the lead tips in the right ventricle. There are chest leads. IMPRESSION: Mild cardiomegaly. No active cardiopulmonary disease. There is clearing of mild pulmonar y congestion compared to last exam.
[2017-05-25] MEDS ORDERED: SODIUM CHLORIDE 0.9% 500 ML IV ONE (23:50)
[2017-05-25 23:57] LABS: Glucose,Whole Blood 207 mg/dL (75-99)
[2017-05-26] MEDS ORDERED: SODIUM CHLORIDE 0.9% 1,000 ML IV ONE
[2017-05-26 00:02] LABS: Anisocytosis Slight; Basophils % (A) 0 %; CH 27.1; CHCM 30.6; Eosinophils % (A) 0 %; HDW 3.13; Hypochromasia Moderate; Luc # (Auto) 0.21; Luc % (Auto) 1; Lymphocytes # (A) 0.4 k/uL (1.0-4.8); Lymphocytes % (A) 2 %; MCHC 30.4 g/dL (31.0-37.0); MCV 88.7 fL (80.0-100.0); Mean Platelet Volume 9.4; Monocytes # (A) 0.9 k/uL (0-1.0); Monocytes % (A) 4 %; Neutrophils # (A) 18.7 k/uL (1.3-7.7); Neutrophils % (A) 92 %; RBC 1.65 m/uL (4.30-5.90); RDW 17.8 % (11.5-15.5); WBC 20.2 k/uL (3.8-10.6); WBC (Perox) 21.46
[2017-05-26 00:21] LABS: Glucose,Whole Blood 233 mg/dL (75-99)
--- NOTE | 2017-05-26 00:23 | XR ---
EXAMINATION TYPE: XR abdomen 1V DATE OF EXAM: 05/26/2017 COMPARISON: 08/04/2016 HISTORY: Vomiting. Distention. Technique 2 views FINDINGS: There is a markedly dilated gas-filled stomach. There is no sign of free air. There are chest leads. There is a catheter projected over the right femoral artery or vein. IMPRESSION: Markedly dilated stomach is new compared to old exam and consistent with gastroparesis an d gastric outlet obstruction. Follow-up is recommended.
[2017-05-26 00:24] LABS: HCT 14.7 % (39.0-53.0); HGB 4.5 gm/dL (13.0-17.5)
[2017-05-26 00:28] LABS: ABG HCO3 25 mmol/L (21-25); ABG PCO2 37 mmHg (35-45); ABG PH 7.44 (7.35-7.45); ABG PO2 103 mmHg (83-108); ABG TCO2 26 mmol/L (19-24)
[2017-05-26 00:29] LABS: Anion Gap 15 mmol/L; Carbon Dioxide 20 mmol/L (22-30); Chloride 102 mmol/L (98-107); Glucose 187 mg/dL (74-99); Non-African American GFR(MDRD) 30 (>60 ml/min/1.73 sqM); Sodium 137 mmol/L (137-145)
[2017-05-26 00:29] LABS: ABG Base Excess 0.9 mmol/L
[2017-05-26 00:36] LABS: Potassium >14.0 mmol/L (3.5-5.1)
[2017-05-26 00:37] LABS: Blood Urea Nitrogen 99 mg/dL (9-20); Calcium <1.0 mg/dL (8.4-10.2)
[2017-05-26 00:38] LABS: Magnesium <0.4 mg/dL (1.6-2.3)
[2017-05-26 00:48] LABS: Anisocytosis Slight; CH 26.9; CHCM 30.6; HDW 3.14; Hypochromasia Marked; MCH 27.1 pg (25.0-35.0); MCHC 30.6 g/dL (31.0-37.0); MCV 88.5 fL (80.0-100.0); Mean Platelet Volume 9.4; RBC 1.58 m/uL (4.30-5.90); RDW 18.2 % (11.5-15.5); WBC 20.6 k/uL (3.8-10.6)
[2017-05-26 00:54] LABS: HGB 4.3 gm/dL (13.0-17.5)
[2017-05-26 00:58] LABS: Calcium 6.9 mg/dL (8.4-10.2); Magnesium 1.8 mg/dL (1.6-2.3); Phosphorous 4.5 mg/dL (2.5-4.5); Potassium 4.6 mmol/L (3.5-5.1)
[2017-05-26 05:43] LABS: Basophils % (A) 0 %; CH 28.7; CHCM 31.1; Eosinophils % (A) 0 %; HCT 22.6 % (39.0-53.0); HDW 3.42; Hypochromasia Marked; Luc # (Auto) 0.15; Luc % (Auto) 1; Lymphocytes # (A) 0.5 k/uL (1.0-4.8); Lymphocytes % (A) 2 %; MCH 27.4 pg (25.0-35.0); MCHC 29.5 g/dL (31.0-37.0); MCV 92.9 fL (80.0-100.0); Mean Platelet Volume 8.9; Monocytes # (A) 1.6 k/uL (0-1.0); Monocytes % (A) 6 %; Neutrophils # (A) 22.2 k/uL (1.3-7.7); Neutrophils % (A) 91 %; Poikilocytosis Slight; RBC 2.44 m/uL (4.30-5.90); RDW 15.3 % (11.5-15.5); WBC 24.4 k/uL (3.8-10.6); WBC (Perox) 24.53
[2017-05-26 05:51] LABS: HGB 6.7 gm/dL (13.0-17.5)
[2017-05-26 05:54] LABS: Potassium 4.6 mmol/L (3.5-5.1)
[2017-05-26] MEDS ORDERED: NALOXONE 0.4 MG/ML 1 ML VIAL IV PRN (06:49)
[2017-05-26] MEDS: IPRATROPIUM-ALBUTEROL 3 ML NEB INHALATION SCH ×2 (07:33→11:18)
--- NOTE | 2017-05-26 08:04 | P.GSCN ---
<Pham Barlow - Last Filed: 05/26/17 08:04> History of Present Illness Consult date: 05/25/17 Reason for Consult: Need for dialysis permacath placement Requesting physician: Rachid Hernandez History of present illness: This 67-year-old gentleman with a previous medical history of diastolic heart failure, diabetes mellitus, myocardial infarction with stent placement 2 as well as coronary artery bypass grafting who has been maintained on chronic Plavix, hypertension, hyperlipidemia, pulmonary hypertension, chronic kidney disease stage III, and permanent pacemaker placement for complete heart block with subsequent conversion to biventricular defibrillator presented to [facility] emergency room on 05/11/2017. Apparently he had not been feeling well for several days, presented to his primary care physician, was noted to have a temperature of 101, was sent for chest x-ray which demonstrated pulmonary infiltrates, and subsequently was brought to the hospital by his for treatment of possible pneumonia. He was admitted to [address] [place] [address] but continued to have declining respiratory function and was intubated on May 13 and transferred to the intensive care unit. He went into acute kidney failure requiring dialysis. He was subsequently extubated and transferred out of ICU to [address] [place] [address]. He has been anemic with constant oozing from his right groin temporary dialysis catheter site, and has received blood transfusions during dialysis. His most recent blood transfusion was yesterday during dialysis for hemoglobin of 6.0. Dr. Anne was consulted for permacath placement. Review of Systems 14 point review systems was completed through discussion with and is negative except as noted. - Constitutional Reports fatigue, Reports fever, Reports poor appetite - Cardiovascular Reports edema, Reports leg edema - Respiratory Reports as per HPI, Reports cough, Reports dyspnea - Gastrointestinal Reports nausea, Reports vomiting - Neurological Reports change in mentation, Reports confusion, Reports weakness - Psychiatric Reports confusion - Hematologic/Lymphatic Reports easy bleeding Past Medical History Past Medical History: Coronary Artery Disease (CAD), Chest Pain / Angina, Heart Failure, Diabetes Mellitus, Hyperlipidemia, Hypertension, Myocardial Infarction ([place]), Renal Disease Additional Past Medical History / Comment(s): Coronary artery disease, single chamber AICD/pacer, CHF/ischemic cardiomyopathy, chronic renal failure, diabetes mellitus, history of right elbow bursitis, gout, previous myocardial infarction, COPD, chronic anemia, history of hyperkalemia, hyperlipidemia, hypertension, peripheral vascular disease, secondary pulmonary hypertension, previous history of GI bleeding, history of iron deficiency. Last Myocardial Infarction Date:: 10/05/15 History of Any Multi-Drug Resistant Organisms: None Reported Past Surgical History: Coronary Bypass/CABG, Heart Catheterization, Heart Catheterization With Stent, Hernia Repair, Pacemaker Additional Past Surgical History / Comment(s): 10/22/15 upper extremity venogram , 2011 triple bypass at [facility], 2006 PCI with stent cx, 09/2015 PCI with stent to LAD, 10/2015 ccath treat medically, dual chamber pacemaker initial insertion 2004 and replaced in 2011, umbillical hernia repair, several nose sx d/t 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 Defibriliator in january 2016 Past Anesthesia/Blood Transfusion Reactions: No Reported Reaction Date of Last Stent Placement:: 09/2015 Type of Cardiac Device: Permanent Pacemaker, AICD Device Placement Date:: 2011 Past Psychological History: No Psychological Hx Reported Additional Psychological History / Comment(s): Pt states he resides with [facility]un[facility]. He is independent. He uses no assistive device. He drives. He has no home care use. Smoking Status: Former smoker Past Alcohol Use History: Daily Additional Past Alcohol Use History / Comment(s): smoked >40 years quit 2-12 , drinks 2 beer daily Past Drug Use History: None Reported - Past Family History Father Family Medical History: CVA/TIA Additional Family Medical History / Comment(s): age 83 had several strokes Mother Family Medical History: Cancer, Liver Disease, Osteoarthritis (OA) Additional Family Medical History / Comment(s): mom passed at age 91, hx breast cancer, emphysema (pt stated she never smoked) Medications and Allergies Home Medications Medication Instructions Recorded Confirmed Type Folic Acid 0.4 mg PO HS 09/10/15 05/11/17 History Nitroglycerin Sl Tabs [Nitrostat] 0.4 mg SUBLINGUAL Q5M PRN 09/10/15 05/11/17 History Clopidogrel [Plavix] 75 mg PO DAILY #30 tab 09/13/15 05/11/17 Rx Aspirin EC [Ecotrin Low Dose] 81 mg PO BID 01/22/16 05/11/17 History Atorvastatin [Lipitor] 40 mg PO HS 07/05/16 05/11/17 History HYDROcodone/APAP 7.5-325MG [[place] 1 tab PO Q6HR PRN 07/05/16 05/11/17 History 7.5-325] Allopurinol [Zyloprim] 100 mg PO DAILY #30 tab 07/08/16 05/11/17 Rx Lisinopril [Zestril] 20 mg PO DAILY 08/04/16 05/11/17 History Insulin NPH Human Isophane 12 unit SQ HS 01/06/17 05/11/17 History [Novolin N] hydrALAZINE HCL [Apresoline] 25 mg PO BID 01/06/17 05/11/17 History Carvedilol [Coreg*] 12.5 mg PO HS 01/25/17 05/11/17 History Carvedilol [Coreg*] 25 mg PO DAILY 01/25/17 05/11/17 History Omeprazole [PriLOSEC] 40 mg PO DAILY 01/25/17 05/11/17 History Vitamin E (Dl,Tocopheryl Acet) 400 unit PO DAILY 01/25/17 05/11/17 History [Vitamin E] glipiZIDE [Glucotrol] 10 mg PO BID 01/25/17 05/11/17 History Ferrous Sulfate [Iron (65 MG 325 mg PO BID-W/MEALS #60 tab 01/27/17 05/11/17 Rx Elemental)] Torsemide [Demadex] 20 mg PO DAILY #30 tab 01/27/17 05/11/17 Rx Acetaminophen [Tylenol Extra 1,000 mg PO TID 05/11/17 05/11/17 History Strength] Clindamycin HCl [Clindamycin HCl] 300 mg PO Q8H 05/11/17 05/11/17 History Allergies Allergy/AdvReac Type Severity Reaction Status Date / Time cephalexin monohydrate AdvReac Unknown Verified 05/11/17 08:01 [From Keflex] Penicillins AdvReac Nausea & Verified 05/11/17 08:01 Vomiting Sulfa (Sulfonamide AdvReac Nausea & Verified 05/11/17 08:01 Antibiotics) Vomiting Surgical - Exam Vital Signs Temp Pulse Resp BP Pulse Ox 102.3 F H 63 20 140/62 92 L 05/11/17 00:14 05/11/17 00:14 05/11/17 00:14 05/11/17 00:14 05/11/17 00:14 - General no distress, no pain, chronically ill, obese - Eyes normal ocular movement - ENT no hearing loss - Neck trachea midline - Respiratory Lungs sounds coarse throughout. Respirations unlabored. Currently on 4 liters nasal cannula with oxygen saturation 99%. - Cardiovascular S1, S2 present. Regular rate and rhythm, paced rhythm on telemetry. Palpable radial, DP, PT pulses bilaterally. Lower extremity edema present. - Abdomen Hypoactive bowel sounds. Abdomen: soft, non tender, bowel sounds - Genitourinary [place] present draining clear, yellow urine. Right femoral temporary dialysis catheter present. Slight oozing around the site. - Rectum Deferred - Integumentary no rash - Psychiatric Unable to state his name, date, or where he's at. Results - Labs 05/25/17 09:15 05/25/17 09:15 Abnormal Lab Results - Last 24 Hours (Table) 05/22/17 05/24/17 05/24/17 Range/Units 08:05 16:52 21:08 WBC (3.8-10.6) k/uL RBC (4.30-5.90) m/uL Hgb (13.0-17.5) gm/dL Hct (39.0-53.0) % MCHC (31.0-37.0) g/dL RDW (11.5-15.5) % Plt Count (150-450) k/uL Sodium (137-145) mmol/L BUN (9-20) mg/dL Creatinine (0.66-1.25) mg/dL Glucose (74-99) mg/dL POC Glucose (mg/dL) 151 H 139 H (75-99) mg/dL Calcium (8.4-10.2) mg/dL Crossmatch See Detail 05/25/17 05/25/17 05/25/17 Range/Units 06:05 09:15 09:15 WBC 17.5 H (3.8-10.6) k/uL RBC 2.18 L (4.30-5.90) m/uL Hgb 6.0 L* (13.0-17.5) gm/dL Hct 19.9 L* (39.0-53.0) % MCHC 30.2 L (31.0-37.0) g/dL RDW 18.4 H (11.5-15.5) % Plt Count 123 L (150-450) k/uL Sodium 136 L (137-145) mmol/L BUN 93 H* (9-20) mg/dL Creatinine 2.52 H (0.66-1.25) mg/dL Glucose 57 L (74-99) mg/dL POC Glucose (mg/dL) 73 L (75-99) mg/dL Calcium 8.1 L (8.4-10.2) mg/dL Crossmatch 05/25/17 Range/Units 11:36 WBC (3.8-10.6) k/uL RBC (4.30-5.90) m/uL Hgb (13.0-17.5) gm/dL Hct (39.0-53.0) % MCHC (31.0-37.0) g/dL RDW (11.5-15.5) % Plt Count (150-450) k/uL Sodium (137-145) mmol/L BUN (9-20) mg/dL Creatinine (0.66-1.25) mg/dL Glucose (74-99) mg/dL POC Glucose (mg/dL) 101 H (75-99) mg/dL Calcium (8.4-10.2) mg/dL Crossmatch Microbiology - Last 24 Hours (Table) 05/14/17 11:10 Fungal Culture - Preliminary Bronchial Washings - Random Diabetes panel 05/25/17 Range/Units 09:15 Sodium 136 L (137-145) mmol/L Potassium 4.3 (3.5-5.1) mmol/L Chloride 101 (98-107) mmol/L Carbon Dioxide 25 (22-30) mmol/L BUN 93 H* (9-20) mg/dL Creatinine 2.52 H (0.66-1.25) mg/dL Glucose 57 L (74-99) mg/dL Calcium 8.1 L (8.4-10.2) mg/dL Calcium panel 05/25/17 Range/Units 09:15 Calcium 8.1 L (8.4-10.2) mg/dL Pituitary panel 05/25/17 Range/Units 09:15 Sodium 136 L (137-145) mmol/L Potassium 4.3 (3.5-5.1) mmol/L Chloride 101 (98-107) mmol/L Carbon Dioxide 25 (22-30) mmol/L BUN 93 H* (9-20) mg/dL Creatinine 2.52 H (0.66-1.25) mg/dL Glucose 57 L (74-99) mg/dL Calcium 8.1 L (8.4-10.2) mg/dL Adrenal panel 05/25/17 Range/Units 09:15 Sodium 136 L (137-145) mmol/L Potassium 4.3 (3.5-5.1) mmol/L Chloride 101 (98-107) mmol/L Carbon Dioxide 25 (22-30) mmol/L BUN 93 H* (9-20) mg/dL Creatinine 2.52 H (0.66-1.25) mg/dL Glucose 57 L (74-99) mg/dL Calcium 8.1 L (8.4-10.2) mg/dL - Imaging Chest x-ray: image reviewed Assessment and Plan (1) Pneumonia Current Visit: Yes Status: Acute Code(s): J18.9 - PNEUMONIA, UNSPECIFIED ORGANISM SNOMED Code(s): 393354122 (2) Renal failure (ARF), acute on chronic Current Visit: Yes Status: Acute Code(s): N17.9 - ACUTE KIDNEY FAILURE, UNSPECIFIED; N18.9 - CHRONIC KIDNEY DISEASE, UNSPECIFIED SNOMED Code(s): 286874370 (3) AICD (automatic cardioverter/defibrillator) present Current Visit: No Status: Acute Code(s): Z95.810 - PRESENCE OF AUTOMATIC ( IMPLANTABLE) CARDIAC DEFIBRILLATOR SNOMED Code(s): 295742277 (4) Acute kidney injury Current Visit: No Status: Acute Code(s): N17.9 - ACUTE KIDNEY FAILURE, UNSPECIFIED SNOMED Code(s): 81615494 (5) Diabetes Current Visit: No Status: Acute Code(s): E11.9 - TYPE 2 DIABETES MELLITUS WITHOUT COMPLICATIONS SNOMED Code(s): 84814751 (6) HTN (hypertension) Current Visit: No Status: Acute Code(s): I10 - ESSENTIAL (PRIMARY) HYPERTENSION SNOMED Code(s): 41955866 (7) Hx of CABG Current Visit: No Status: Acute Code(s): Z95.1 - PRESENCE OF AORTOCORONARY BYPASS GRAFT SNOMED Code(s): 492031658 (8) Severe anemia Current Visit: No Status: Acute Code(s): D64.9 - ANEMIA, UNSPECIFIED SNOMED Code(s): 466197259 Plan: The patient was seen and examined at the bedside. Chart for/diagnostics were reviewed. At this time patient appears chronically ill. Patient has been on Plavix, has had constant oozing from his right femoral temporary dialysis site , thrombocytopenia as well as anemia. His hemoglobin was 6.0 this morning, it was 6.0 yesterday morning and he received 1 unit of packed red blood cells during dialysis. Would recommend discontinuing Plavix. Case discussed with Dr. Anne. He was boarded for placement of dialysis catheter tomorrow, however patient may benefit from waiting for a few days until Plavix has metabolized, anemia is more stable, and patient has had an opportunity to recover from multiple medical insults. He does have dialysis access which can continue to be used for now. Thank you Dr. Hernandez for this consult. We look forward to working with you in the care of your patient. Time with Patient: Greater than 30 <Etienne Anne - Last Filed: 05/26/17 11:29> History of Present Illness History of present illness: At this point the patient has a functioning femoral catheter. If bleeding persists as an issue I would consider placing a stitch in this area to control it. Would consider placement of a permacath once patient's other severe issues such as major GI bleed are under control. Would also hold the Plavix for at least 5 days. Surgical - Exam Osteopathic Statement: *. No significant issues noted on an osteopathic structural exam other than those noted in the History and Physical/Consult. Vital Signs Temp Pulse Resp BP Pulse Ox 102.3 F H 63 20 140/62 92 L 05/11/17 00:14 05/11/17 00:14 05/11/17 00:14 05/11/17 00:14 05/11/17 00:14 Results - Labs 05/26/17 09:20 05/26/17 05:33 Abnormal Lab Results - Last 24 Hours (Table) 05/25/17 05/25/17 05/25/17 Range/Units 11:36 12:19 16:44 WBC (3.8-10.6) k/uL RBC (4.30-5.90) m/uL Hgb (13.0-17.5) gm/dL Hct (39.0-53.0) % MCHC (31.0-37.0) g/dL RDW (11.5-15.5) % Plt Count (150-450) k/uL Neutrophils # (1.3-7.7) k/uL Lymphocytes # (1.0-4.8) k/uL Monocytes # (0-1.0) k/uL Retic Count (0.5-2.0) % PT (9.0-12.0) sec INR (<1.2) APTT (22.0-30.0) sec ABG Total CO2 (19-24) mmol/L ABG O2 Saturation (94-97) % Sodium (137-145) mmol/L Potassium (3.5-5.1) mmol/L Carbon Dioxide (22-30) mmol/L BUN (9-20) mg/dL Creatinine (0.66-1.25) mg/dL Glucose (74-99) mg/dL POC Glucose (mg/dL) 101 H 129 H (75-99) mg/dL Plasma Lactic Acid [place] (0.7-2.0) mmol/L Calcium (8.4-10.2) mg/dL Magnesium (1.6-2.3) mg/dL Delta Bilirubin (0.0-0.2) mg/dL Ammonia (<30) umol/L Lactate Dehydrogenase (313-618) U/L Crossmatch See Detail 05/25/17 05/25/17 05/25/17 Range/Units 21:02 23:54 23:54 WBC 20.2 H (3.8-10.6) k/uL RBC 1.65 L (4.30-5.90) m/uL Hgb 4.5 L* D (13.0-17.5) gm/dL Hct 14.7 L* (39.0-53.0) % MCHC 30.4 L (31.0-37.0) g/dL RDW 17.8 H (11.5-15.5) % Plt Count 123 L (150-450) k/uL Neutrophils # 18.7 H (1.3-7.7) k/uL Lymphocytes # 0.4 L (1.0-4.8) k/uL Monocytes # (0-1.0) k/uL Retic Count (0.5-2.0) % PT (9.0-12.0) sec INR (<1.2) APTT (22.0-30.0) sec ABG Total CO2 (19-24) mmol/L ABG O2 Saturation (94-97) % Sodium (137-145) mmol/L Potassium >14.0 H* (3.5-5.1) mmol/L Carbon Dioxide 20 L (22-30) mmol/L BUN 99 H* (9-20) mg/dL Creatinine 2.20 H (0.66-1.25) mg/dL Glucose 187 H (74-99) mg/dL POC Glucose (mg/dL) 205 H (75-99) mg/dL Plasma Lactic Acid [place] (0.7-2.0) mmol/L Calcium <1.0 L* (8.4-10.2) mg/dL Magnesium <0.4 L* (1.6-2.3) mg/dL Delta Bilirubin (0.0-0.2) mg/dL Ammonia (<30) umol/L Lactate Dehydrogenase (313-618) U/L Crossmatch 05/25/17 05/25/17 05/26/17 Range/Units 23:54 23:56 00:20 WBC (3.8-10.6) k/uL RBC (4.30-5.90) m/uL Hgb (13.0-17.5) gm/dL Hct (39.0-53.0) % MCHC (31.0-37.0) g/dL RDW (11.5-15.5) % Plt Count (150-450) k/uL Neutrophils # (1.3-7.7) k/uL Lymphocytes # (1.0-4.8) k/uL Monocytes # (0-1.0) k/uL Retic Count (0.5-2.0) % PT (9.0-12.0) sec INR (<1.2) APTT (22.0-30.0) sec ABG Total CO2 (19-24) mmol/L ABG O2 Saturation (94-97) % Sodium (137-145) mmol/L Potassium (3.5-5.1) mmol/L Carbon Dioxide (22-30) mmol/L BUN (9-20) mg/dL Creatinine (0.66-1.25) mg/dL Glucose (74-99) mg/dL POC Glucose (mg/dL) 207 H 233 H (75-99) mg/dL Plasma Lactic Acid [place] 3.2 H* (0.7-2.0) mmol/L Calcium (8.4-10.2) mg/dL Magnesium (1.6-2.3) mg/dL Delta Bilirubin (0.0-0.2) mg/dL Ammonia (<30) umol/L Lactate Dehydrogenase (313-618) U/L Crossmatch 05/26/17 05/26/17 05/26/17 Range/Units 00:21 00:36 00:36 WBC 20.6 H (3.8-10.6) k/uL RBC 1.58 L (4.30-5.90) m/uL Hgb 4.3 L* (13.0-17.5) gm/dL Hct 14.0 L* (39.0-53.0) % MCHC 30.6 L (31.0-37.0) g/dL RDW 18.2 H (11.5-15.5) % Plt Count 142 L (150-450) k/uL Neutrophils # (1.3-7.7) k/uL Lymphocytes # (1.0-4.8) k/uL Monocytes # (0-1.0) k/uL Retic Count (0.5-2.0) % PT (9.0-12.0) sec INR (<1.2) APTT (22.0-30.0) sec ABG Total CO2 26 H (19-24) mmol/L ABG O2 Saturation 98.0 H (94-97) % Sodium (137-145) mmol/L Potassium (3.5-5.1) mmol/L Carbon Dioxide (22-30) mmol/L BUN 99 H* (9-20) mg/dL Creatinine 2.30 H (0.66-1.25) mg/dL Glucose 186 H (74-99) mg/dL POC Glucose (mg/dL) (75-99) mg/dL Plasma Lactic Acid [place] (0.7-2.0) mmol/L Calcium 6.9 L (8.4-10.2) mg/dL Magnesium (1.6-2.3) mg/dL Delta Bilirubin (0.0-0.2) mg/dL Ammonia (<30) umol/L Lactate Dehydrogenase (313-618) U/L Crossmatch 05/26/17 05/26/17 05/26/17 Range/Units 00:36 05:33 05:33 WBC 24.4 H (3.8-10.6) k/uL RBC 2.44 L (4.30-5.90) m/uL Hgb 6.7 L* D (13.0-17.5) gm/dL Hct 22.6 L (39.0-53.0) % MCHC 29.5 L (31.0-37.0) g/dL RDW (11.5-15.5) % Plt Count 130 L (150-450) k/uL Neutrophils # 22.2 H (1.3-7.7) k/uL Lymphocytes # 0.5 L (1.0-4.8) k/uL Monocytes # 1.6 H (0-1.0) k/uL Retic Count (0.5-2.0) % PT (9.0-12.0) sec INR (<1.2) APTT (22.0-30.0) sec ABG Total CO2 (19-24) mmol/L ABG O2 Saturation (94-97) % Sodium 136 L (137-145) mmol/L Potassium (3.5-5.1) mmol/L Carbon Dioxide 20 L (22-30) mmol/L BUN 116 H* (9-20) mg/dL Creatinine 2.40 H (0.66-1.25) mg/dL Glucose 236 H (74-99) mg/dL POC Glucose (mg/dL) (75-99) mg/dL Plasma Lactic Acid [place] 3.0 H* (0.7-2.0) mmol/L Calcium 7.0 L (8.4-10.2) mg/dL Magnesium (1.6-2.3) mg/dL Delta Bilirubin (0.0-0.2) mg/dL Ammonia 75 H (<30) umol/L Lactate Dehydrogenase (313-618) U/L Crossmatch 05/26/17 05/26/17 05/26/17 Range/Units 09:20 09:20 09:20 WBC 24.4 H (3.8-10.6) k/uL RBC 2.07 L (4.30-5.90) m/uL Hgb 5.9 L* (13.0-17.5) gm/dL Hct 18.2 L* (39.0-53.0) % MCHC (31.0-37.0) g/dL RDW 16.9 H (11.5-15.5) % Plt Count 129 L (150-450) k/uL Neutrophils # (1.3-7.7) k/uL Lymphocytes # (1.0-4.8) k/uL Monocytes # (0-1.0) k/uL Retic Count 2.7 H (0.5-2.0) % PT (9.0-12.0) sec INR (<1.2) APTT (22.0-30.0) sec ABG Total CO2 (19-24) mmol/L ABG O2 Saturation (94-97) % Sodium (137-145) mmol/L Potassium (3.5-5.1) mmol/L Carbon Dioxide (22-30) mmol/L BUN (9-20) mg/dL Creatinine (0.66-1.25) mg/dL Glucose (74-99) mg/dL POC Glucose (mg/dL) (75-99) mg/dL Plasma Lactic Acid [place] (0.7-2.0) mmol/L Calcium (8.4-10.2) mg/dL Magnesium (1.6-2.3) mg/dL Delta Bilirubin 0.3 H (0.0-0.2) mg/dL Ammonia (<30) umol/L Lactate Dehydrogenase 699 H (313-618) U/L Crossmatch 05/26/17 05/26/17 Range/Units 09:20 10:46 WBC (3.8-10.6) k/uL RBC (4.30-5.90) m/uL Hgb (13.0-17.5) gm/dL Hct (39.0-53.0) % MCHC (31.0-37.0) g/dL RDW (11.5-15.5) % Plt Count (150-450) k/uL Neutrophils # (1.3-7.7) k/uL Lymphocytes # (1.0-4.8) k/uL Monocytes # (0-1.0) k/uL Retic Count (0.5-2.0) % PT 14.1 H (9.0-12.0) sec INR 1.4 H (<1.2) APTT 39.6 H (22.0-30.0) sec ABG Total CO2 (19-24) mmol/L ABG O2 Saturation (94-97) % Sodium (137-145) mmol/L Potassium (3.5-5.1) mmol/L Carbon Dioxide (22-30) mmol/L BUN (9-20) mg/dL Creatinine (0.66-1.25) mg/dL Glucose (74-99) mg/dL POC Glucose (mg/dL) 294 H (75-99) mg/dL Plasma Lactic Acid [place] (0.7-2.0) mmol/L Calcium (8.4-10.2) mg/dL Magnesium (1.6-2.3) mg/dL Delta Bilirubin (0.0-0.2) mg/dL Ammonia (<30) umol/L Lactate Dehydrogenase (313-618) U/L Crossmatch Microbiology - Last 24 Hours (Table) 05/14/17 11:10 Acid Fast Bacilli Smear - Final Bronchial Washings - Random Acid Fast Bacilli Culture - Preliminary Diabetes panel 05/25/17 05/26/17 05/26/17 Range/Units 23:54 00:36 05:33 Sodium 137 138 136 L (137-145) mmol/L Potassium >14.0 H* 4.6 4.6 (3.5-5.1) mmol/L Chloride 102 104 105 (98-107) mmol/L Carbon Dioxide 20 L 25 20 L (22-30) mmol/L BUN 99 H* 99 H* 116 H* (9-20) mg/dL Creatinine 2.20 H 2.30 H 2.40 H (0.66-1.25) mg/dL Glucose 187 H 186 H 236 H (74-99) mg/dL Calcium <1.0 L* 6.9 L 7.0 L (8.4-10.2) mg/dL AST 38 (17-59) U/L ALT 55 (21-72) U/L Calcium panel 05/25/17 05/26/17 05/26/17 Range/Units 23:54 00:36 05:33 Calcium <1.0 L* 6.9 L 7.0 L (8.4-10.2) mg/dL Phosphorus 4.5 (2.5-4.5) mg/dL Pituitary panel 05/25/17 05/26/17 05/26/17 Range/Units 23:54 00:36 05:33 Sodium 137 138 136 L (137-145) mmol/L Potassium >14.0 H* 4.6 4.6 (3.5-5.1) mmol/L Chloride 102 104 105 (98-107) mmol/L Carbon Dioxide 20 L 25 20 L (22-30) mmol/L BUN 99 H* 99 H* 116 H* (9-20) mg/dL Creatinine 2.20 H 2.30 H 2.40 H (0.66-1.25) mg/dL Glucose 187 H 186 H 236 H (74-99) mg/dL Calcium <1.0 L* 6.9 L 7.0 L (8.4-10.2) mg/dL Adrenal panel 05/25/17 05/26/17 05/26/17 Range/Units 23:54 00:36 05:33 Sodium 137 138 136 L (137-145) mmol/L Potassium >14.0 H* 4.6 4.6 (3.5-5.1) mmol/L Chloride 102 104 105 (98-107) mmol/L Carbon Dioxide 20 L 25 20 L (22-30) mmol/L BUN 99 H* 99 H* 116 H* (9-20) mg/dL Creatinine 2.20 H 2.30 H 2.40 H (0.66-1.25) mg/dL Glucose 187 H 186 H 236 H (74-99) mg/dL Calcium <1.0 L* 6.9 L 7.0 L (8.4-10.2) mg/dL Total Bilirubin (0.2-1.3) mg/dL AST 38 (17-59) U/L ALT 55 (21-72) U/L 05/26/17 Range/Units 09:20 Sodium (137-145) mmol/L Potassium (3.5-5.1) mmol/L Chloride (98-107) mmol/L Carbon Dioxide (22-30) mmol/L BUN (9-20) mg/dL Creatinine (0.66-1.25) mg/dL Glucose (74-99) mg/dL Calcium (8.4-10.2) mg/dL Total Bilirubin 0.3 (0.2-1.3) mg/dL AST (17-59) U/L ALT (21-72) U/L
[2017-05-26] MEDS ORDERED: PANTOPRAZOLE 40 MG/10 ML VIAL IVP SCH (09:00)
--- NOTE | 2017-05-26 09:12 | P.CONS ---
History of Present Illness - Reason for Consult Consult date: 05/26/17 GI bleed Requesting physician: Arturo Jerez - History of Present Illness 67-year-old gentleman admitted 2 weeks ago with acute hypoxic respiratory failure secondary to pneumonia with subsequent intubation and extubation during this hospitalization. Hemodialysis started 05/14 via groin dialysis catheter. Additional past medical history includes CHF, with underlying COPD. He has an extensive cardiac history including AICD/PPM, CABG, MA with PCI stent dual antiplatelet therapy, hypertension, hyperlipidemia, pulmonary hypertension, chronic kidney disease stage III. Consult requested for GI bleed. Patient was admitted with a baseline hemoglobin 8.3. Over the last 2 weeks it has fluctuated as low as 4.3 last night. Patient has had intermittent oozing from a right groin permacath catheter with subsequent discontinuation of aspirin and Plavix. Yesterday patient had a large emesis the nursing described had stool maroon-colored with abdominal distention. Abdominal x-rays reportedly gastric distention. NG tube was inserted without return of 1.5 dark maroon colored near black gastric fluid. No reports of overt hematochezia. Patient had a large black tarry bowel movement this morning. He has received 5 units of blood since admission; 2 units were given last night for hemoglobin of 4.3. Currently hemoglobin 6.7. White count 24. Platelet 130. MCV 92. INR 1.2 on 05/14/2017 repeat PT/INR and CBC is pending. Patient is confused history is obtained from the medical records, physicians staff, and nursing. Unsure if patient has had a colonoscopy EGD in the past. Unsure patient had a GI bleed or peptic ulcer disease in the past. Upon review of medical records hemoglobin averaging between 8-9 since August 2016. Review of Systems Patient is considered diffuse unable to obtain. Information obtained from nursing, position staff, medical records. Constitutional: Denies fever, chills, sweats, weight gain, or loss. HEENT: Negative for migraines, blurred vision or loss, earaches, drainage, tinnitus, oral mucosal lesions, dysphagia, or odynophagia. Cardiac: CAD. PCI stent. Hypertension. MA. CABG. AICD PPM. CHF. Respiratory: COPD. Admitted with shortness of breath, cough, or sputum production. Gastrointestinal: See HPI for pertinent findings. Genitourinary: Negative for hematuria, urgency, frequency, polyuria, dysuria, or penile discharge. Musculoskeletal: Negative for muscle aches, swelling, arthritis, and arthralgias. Neurologic: Negative for stroke or TIA. Endocrine: Negative for thyroid problems. Nephrology: Chronic any disease stage III. Skin: Negative for rash or itching. Psychiatric: Negative history for depression and anxiety All systems: negative (See HPI) Past Medical History Past Medical History: Coronary Artery Disease (CAD), Chest Pain / Angina, Heart Failure, Diabetes Mellitus, Hyperlipidemia, Hypertension, Myocardial Infarction (MA), Renal Disease Additional Past Medical History / Comment(s): Coronary artery disease, single chamber AICD/pacer, CHF/ischemic cardiomyopathy, chronic renal failure, diabetes mellitus, history of right elbow bursitis, gout, previous myocardial infarction, COPD, chronic anemia, history of hyperkalemia, hyperlipidemia, hypertension, peripheral vascular disease, secondary pulmonary hypertension, previous history of GI bleeding, history of iron deficiency. Last Myocardial Infarction Date:: 10/05/15 History of Any Multi-Drug Resistant Organisms: None Reported Past Surgical History: Coronary Bypass/CABG, Heart Catheterization, Heart Catheterization With Stent, Hernia Repair, Pacemaker Additional Past Surgical History / Comment(s): 10/22/15 upper extremity venogram , 2011 triple bypass at [facility], 2006 PCI with stent cx, 09/2015 PCI with stent to LAD, 10/2015 [facility] treat medically, dual chamber pacemaker initial insertion 2004 and replaced in 2011, umbillical hernia repair, several nose sx d/t 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 Defibriliator in january 2016 Past Anesthesia/Blood Transfusion Reactions: No Reported Reaction Date of Last Stent Placement:: 09/2015 Type of Cardiac Device: Permanent Pacemaker, AICD Device Placement Date:: 2011 Past Psychological History: No Psychological Hx Reported Additional Psychological History / Comment(s): Pt states he resides with [facility]. He is independent. He uses no assistive device. He drives. He has no home care use. Smoking Status: Former smoker Past Alcohol Use History: Daily Additional Past Alcohol Use History / Comment(s): smoked >40 years quit 216-12 , drinks 2 beer daily Past Drug Use History: None Reported - Past Family History Father Family Medical History: CVA/TIA Additional Family Medical History / Comment(s): age 83 had several strokes Mother Family Medical History: Cancer, Liver Disease, Osteoarthritis (OA) Additional Family Medical History / Comment(s): mom passed at age 91, hx breast cancer, emphysema (pt stated she never smoked) Medications and Allergies Home Medications Medication Instructions Recorded Confirmed Type Folic Acid 0.4 mg PO HS 09/10/15 05/11/17 History Nitroglycerin Sl Tabs [Nitrostat] 0.4 mg SUBLINGUAL Q5M PRN 09/10/15 05/11/17 History Clopidogrel [Plavix] 75 mg PO DAILY #30 tab 09/13/15 05/11/17 Rx Aspirin EC [Ecotrin Low Dose] 81 mg PO BID 01/22/16 05/11/17 History Atorvastatin [Lipitor] 40 mg PO HS 07/05/16 05/11/17 History HYDROcodone/APAP 7.5-325MG [V[place] 1 tab PO Q6HR PRN 07/05/16 05/11/17 History 7.5-325] Allopurinol [Zyloprim] 100 mg PO DAILY #30 tab 07/08/16 05/11/17 Rx Lisinopril [Zestril] 20 mg PO DAILY 08/04/16 05/11/17 History Insulin NPH Human Isophane 12 unit SQ HS 01/06/17 05/11/17 History [Novolin N] hydrALAZINE HCL [Apresoline] 25 mg PO BID 01/06/17 05/11/17 History Carvedilol [Coreg*] 12.5 mg PO HS 01/25/17 05/11/17 History Carvedilol [Coreg*] 25 mg PO DAILY 01/25/17 05/11/17 History Omeprazole [PriLOSEC] 40 mg PO DAILY 01/25/17 05/11/17 History Vitamin E (Dl,Tocopheryl Acet) 400 unit PO DAILY 01/25/17 05/11/17 History [Vitamin E] glipiZIDE [Glucotrol] 10 mg PO BID 01/25/17 05/11/17 History Ferrous Sulfate [Iron (65 MG 325 mg PO BID-W/MEALS #60 tab 01/27/17 05/11/17 Rx Elemental)] Torsemide [Demadex] 20 mg PO DAILY #30 tab 01/27/17 05/11/17 Rx Acetaminophen [Tylenol Extra 1,000 mg PO TID 05/11/17 05/11/17 History Strength] Clindamycin HCl [Clindamycin HCl] 300 mg PO Q8H 05/11/17 05/11/17 History Allergies Allergy/AdvReac Type Severity Reaction Status Date / Time cephalexin monohydrate AdvReac Unknown Verified 05/11/17 08:01 [From Keflex] Penicillins AdvReac Nausea & Verified 05/11/17 08:01 Vomiting Sulfa (Sulfonamide AdvReac Nausea & Verified 05/11/17 08:01 Antibiotics) Vomiting Physical Exam Vitals: Vital Signs Temp Pulse Pulse Resp BP BP BP 05/26/17 07:43 81 05/26/17 07:33 67 05/26/17 07:00 60 26 H 107/42 05/26/17 06:00 92 23 109/47 05/26/17 05:26 98.9 F 64 23 100/45 05/26/17 05:22 95.7 F L 64 21 101/43 05/26/17 05:00 88 18 101/43 05/26/17 04:00 70 23 116/44 05/26/17 03:54 99 F 79 20 116/44 05/26/17 03:25 100.4 F H 60 22 114/52 05/26/17 03:24 100.4 F H 60 22 114/52 05/26/17 03:23 100 F H 72 20 110/55 05/26/17 03:14 100 F H 68 22 116/54 05/26/17 02:48 100.2 F H 70 25 H 110/50 05/26/17 02:14 86 23 114/52 05/26/17 02:00 98.9 F 78 25 H 95/50 05/26/17 01:45 98.3 F 90 28 H 94/44 05/26/17 01:30 99.5 F 90 28 H 95/47 05/26/17 00:15 80/42 05/26/17 00:00 69 30 H 77/39 05/25/17 23:31 66 22 05/25/17 23:30 71 22 90/38 05/25/17 20:00 99.7 F H 66 20 148/65 05/25/17 19:52 80 05/25/17 19:38 78 05/25/17 16:39 98.1 F 75 18 113/65 05/25/17 16:01 98.1 F 73 18 111/69 05/25/17 15:49 97.3 F L 85 24 97/55 05/25/17 15:47 97.0 F L 24 97/55 05/25/17 15:44 66 20 05/25/17 15:31 97.3 F L 78 24 100/48 05/25/17 15:21 98.1 F 85 20 100/52 05/25/17 12:00 76 05/25/17 11:41 66 20 05/25/17 11:38 98.6 F 66 20 103/51 Pulse Ox 05/26/17 07:43 05/26/17 07:33 96 05/26/17 07:00 100 05/26/17 06:00 100 05/26/17 05:26 100 05/26/17 05:22 05/26/17 05:00 99 05/26/17 04:00 99 05/26/17 03:54 05/26/17 03:25 100 05/26/17 03:24 100 05/26/17 03:23 100 05/26/17 03:14 100 05/26/17 02:48 100 05/26/17 02:14 100 05/26/17 02:00 05/26/17 01:45 05/26/17 01:30 100 05/26/17 00:15 05/26/17 00:00 05/25/17 23:31 05/25/17 23:30 100 05/25/17 20:00 96 05/25/17 19:52 05/25/17 19:38 05/25/17 16:39 99 05/25/17 16:01 99 05/25/17 15:49 99 05/25/17 15:47 99 05/25/17 15:44 05/25/17 15:31 99 05/25/17 15:21 98 05/25/17 12:00 05/25/17 11:41 05/25/17 11:38 99 Intake and Output 05/25/17 05/26/17 05/26/17 22:59 06:59 14:59 Intake Total 470 2240 20 Output Total 1197 360 Balance 470 1043 -340 Intake: IV 160 1620 20 0.9 160 KVO 120 20 Sodium Chloride 0.9% 1, 1000 000 ml @ 999 mls/hr IV . Q1H1M ONE Rx#:[id number] Sodium Chloride 0.9% 500 500 ml @ 999 mls/hr IV .Q31M ONE Rx#:[id number] Blood Product 310 620 Rc As-1 Unit 310 [id number] Rc As-1 Unit 310 [id number] Rc Pheresis As-3 Unit 310 [id number] Output: Gastric Drainage 1100 350 Urine 97 10 Other: Voiding Method Indwelling Catheter Indwelling Catheter Weight 89.2 kg General appearance: The patient is alert, but confused restrained. HET: Head is normocephalic and atraumatic. Pupils are equal and reactive. Oropharynx is clear without lesions. NG tube with dark near black gastric fluid. Neck: Supple without lymphadenopathy. Trachea midline. Heart: S1 S2. Lungs: Bilateral rhonchi congested cough. Abdomen: Soft, nontender, nondistended with bowel sounds. No peritoneal signs. No palpable organomegaly or masses. Extremities: Normal skin color and turgor. No cyanosis, rash, ulceration, clubbing, or edema. Radial and pedal pulses are 2/4 bilaterally. De Dios with clear darío urine. Right groin dialysis catheter without bleeding hematoma. Neurological: No focal deficits. Strength and sensation are grossly intact. Rectal: Limited exam large black tarry bowel movement. Internal exam not performed. Results CBC & Chem 7: 05/26/17 09:20 05/26/17 05:33 Labs: Abnormal Lab Results - Last 24 Hours (Table) 05/25/17 05/25/17 05/25/17 Range/Units 09:15 09:15 11:36 WBC 17.5 H (3.8-10.6) k/uL RBC 2.18 L (4.30-5.90) m/uL Hgb 6.0 L* (13.0-17.5) gm/dL Hct 19.9 L* (39.0-53.0) % MCHC 30.2 L (31.0-37.0) g/dL RDW 18.4 H (11.5-15.5) % Plt Count 123 L (150-450) k/uL Neutrophils # (1.3-7.7) k/uL Lymphocytes # (1.0-4.8) k/uL Monocytes # (0-1.0) k/uL ABG Total CO2 (19-24) mmol/L ABG O2 Saturation (94-97) % Sodium 136 L (137-145) mmol/L Potassium (3.5-5.1) mmol/L Carbon Dioxide (22-30) mmol/L BUN 93 H* (9-20) mg/dL Creatinine 2.52 H (0.66-1.25) mg/dL Glucose 57 L (74-99) mg/dL POC Glucose (mg/dL) 101 H (75-99) mg/dL Plasma Lactic Acid Clyde (0.7-2.0) mmol/L Calcium 8.1 L (8.4-10.2) mg/dL Magnesium (1.6-2.3) mg/dL Ammonia (<30) umol/L Crossmatch 05/25/17 05/25/17 05/25/17 Range/Units 12:19 16:44 21:02 WBC (3.8-10.6) k/uL RBC (4.30-5.90) m/uL Hgb (13.0-17.5) gm/dL Hct (39.0-53.0) % MCHC (31.0-37.0) g/dL RDW (11.5-15.5) % Plt Count (150-450) k/uL Neutrophils # (1.3-7.7) k/uL Lymphocytes # (1.0-4.8) k/uL Monocytes # (0-1.0) k/uL ABG Total CO2 (19-24) mmol/L ABG O2 Saturation (94-97) % Sodium (137-145) mmol/L Potassium (3.5-5.1) mmol/L Carbon Dioxide (22-30) mmol/L BUN (9-20) mg/dL Creatinine (0.66-1.25) mg/dL Glucose (74-99) mg/dL POC Glucose (mg/dL) 129 H 205 H (75-99) mg/dL Plasma Lactic Acid Clyde (0.7-2.0) mmol/L Calcium (8.4-10.2) mg/dL Magnesium (1.6-2.3) mg/dL Ammonia (<30) umol/L Crossmatch See Detail 05/25/17 05/25/17 05/25/17 Range/Units 23:54 23:54 23:54 WBC 20.2 H (3.8-10.6) k/uL RBC 1.65 L (4.30-5.90) m/uL Hgb 4.5 L* D (13.0-17.5) gm/dL Hct 14.7 L* (39.0-53.0) % MCHC 30.4 L (31.0-37.0) g/dL RDW 17.8 H (11.5-15.5) % Plt Count 123 L (150-450) k/uL Neutrophils # 18.7 H (1.3-7.7) k/uL Lymphocytes # 0.4 L (1.0-4.8) k/uL Monocytes # (0-1.0) k/uL ABG Total CO2 (19-24) mmol/L ABG O2 Saturation (94-97) % Sodium (137-145) mmol/L Potassium >14.0 H* (3.5-5.1) mmol/L Carbon Dioxide 20 L (22-30) mmol/L BUN 99 H* (9-20) mg/dL Creatinine 2.20 H (0.66-1.25) mg/dL Glucose 187 H (74-99) mg/dL POC Glucose (mg/dL) (75-99) mg/dL Plasma Lactic Acid Clyde 3.2 H* (0.7-2.0) mmol/L Calcium <1.0 L* (8.4-10.2) mg/dL Magnesium <0.4 L* (1.6-2.3) mg/dL Ammonia (<30) umol/L Crossmatch 05/25/17 05/26/17 05/26/17 Range/Units 23:56 00:20 00:21 WBC (3.8-10.6) k/uL RBC (4.30-5.90) m/uL Hgb (13.0-17.5) gm/dL Hct (39.0-53.0) % MCHC (31.0-37.0) g/dL RDW (11.5-15.5) % Plt Count (150-450) k/uL Neutrophils # (1.3-7.7) k/uL Lymphocytes # (1.0-4.8) k/uL Monocytes # (0-1.0) k/uL ABG Total CO2 26 H (19-24) mmol/L ABG O2 Saturation 98.0 H (94-97) % Sodium (137-145) mmol/L Potassium (3.5-5.1) mmol/L Carbon Dioxide (22-30) mmol/L BUN (9-20) mg/dL Creatinine (0.66-1.25) mg/dL Glucose (74-99) mg/dL POC Glucose (mg/dL) 207 H 233 H (75-99) mg/dL Plasma Lactic Acid Clyde (0.7-2.0) mmol/L Calcium (8.4-10.2) mg/dL Magnesium (1.6-2.3) mg/dL Ammonia (<30) umol/L Crossmatch 05/26/17 05/26/17 05/26/17 Range/Units 00:36 00:36 00:36 WBC 20.6 H (3.8-10.6) k/uL RBC 1.58 L (4.30-5.90) m/uL Hgb 4.3 L* (13.0-17.5) gm/dL Hct 14.0 L* (39.0-53.0) % MCHC 30.6 L (31.0-37.0) g/dL RDW 18.2 H (11.5-15.5) % Plt Count 142 L (150-450) k/uL Neutrophils # (1.3-7.7) k/uL Lymphocytes # (1.0-4.8) k/uL Monocytes # (0-1.0) k/uL ABG Total CO2 (19-24) mmol/L ABG O2 Saturation (94-97) % Sodium (137-145) mmol/L Potassium (3.5-5.1) mmol/L Carbon Dioxide (22-30) mmol/L BUN 99 H* (9-20) mg/dL Creatinine 2.30 H (0.66-1.25) mg/dL Glucose 186 H (74-99) mg/dL POC Glucose (mg/dL) (75-99) mg/dL Plasma Lactic Acid Clyde 3.0 H* (0.7-2.0) mmol/L Calcium 6.9 L (8.4-10.2) mg/dL Magnesium (1.6-2.3) mg/dL Ammonia 75 H (<30) umol/L Crossmatch 05/26/17 05/26/17 Range/Units 05:33 05:33 WBC 24.4 H (3.8-10.6) k/uL RBC 2.44 L (4.30-5.90) m/uL Hgb 6.7 L* D (13.0-17.5) gm/dL Hct 22.6 L (39.0-53.0) % MCHC 29.5 L (31.0-37.0) g/dL RDW (11.5-15.5) % Plt Count 130 L (150-450) k/uL Neutrophils # 22.2 H (1.3-7.7) k/uL Lymphocytes # 0.5 L (1.0-4.8) k/uL Monocytes # 1.6 H (0-1.0) k/uL ABG Total CO2 (19-24) mmol/L ABG O2 Saturation (94-97) % Sodium 136 L (137-145) mmol/L Potassium (3.5-5.1) mmol/L Carbon Dioxide 20 L (22-30) mmol/L BUN 116 H* (9-20) mg/dL Creatinine 2.40 H (0.66-1.25) mg/dL Glucose 236 H (74-99) mg/dL POC Glucose (mg/dL) (75-99) mg/dL Plasma Lactic Acid Clyde (0.7-2.0) mmol/L Calcium 7.0 L (8.4-10.2) mg/dL Magnesium (1.6-2.3) mg/dL Ammonia (<30) umol/L Crossmatch Microbiology - Last 24 Hours (Table) 05/14/17 11:10 Acid Fast Bacilli Smear - Final Bronchial Washings - Random Acid Fast Bacilli Culture - Preliminary Assessment and Plan (1) Acute GI bleeding Narrative/Plan: 67-year-old male with a history of multiple medical problems chronic anemia extensive cardiac history admitted with acute hypoxic respiratory failure pneumonia with a baseline hemoglobin of 8.3 with subsequent development of coffee-ground emesis and melena suggestive of acute upper GI bleed possible peptic ulcer disease. Current Visit: Yes Status: Acute Code(s): K92.2 - GASTROINTESTINAL HEMORRHAGE, UNSPECIFIED SNOMED Code(s): 31795368 (2) Acute blood loss anemia Current Visit: No Status: Acute Code(s): D62 - ACUTE POSTHEMORRHAGIC ANEMIA SNOMED Code(s): 555197757 (3) Renal failure (ARF), acute on chronic Current Visit: Yes Status: Acute Code(s): N17.9 - ACUTE KIDNEY FAILURE, UNSPECIFIED; N18.9 - CHRONIC KIDNEY DISEASE, UNSPECIFIED SNOMED Code(s): 879527777 (4) Hemodialysis patient Current Visit: Yes Status: Acute Code(s): Z99.2 - DEPENDENCE ON RENAL DIALYSIS SNOMED Code(s): 854532537 Plan: 1. IV Protonix 40 mg twice daily. 2. EGD evaluation. 3. Patient is a high anesthesia risk secondary to his multiple comorbidities and respiratory status. Case was discussed with pulmonology nurse practitioner Ashleigh Byrd. Pulmonology evaluation was requested prior to EGD evaluation today. Hold dual antiplatelet therapy until EGD is completed. Will follow closely with you. CBC every 6 hours. Nothing by mouth. The radio disc jockey has discussed the risks, benefits and alternative therapies for the above-mentioned procedure and for both sedation/analgesia as well as necessary blood product administration, if indicated, as they pertain to this patient. The patient's advocate has indicated understanding and acceptance of the risks and procedures discussed. Thank you for this kind referral and the opportunity to participate in the care of your patient. This consultation was discussed with Dr. Field. The impression and plan of care have been directed as dictated.
[2017-05-26 09:34] LABS: Anisocytosis Slight; CH 28.9; CHCM 33.1; HDW 3.35; MCH 28.6 pg (25.0-35.0); MCHC 32.6 g/dL (31.0-37.0); MCV 87.8 fL (80.0-100.0); Mean Platelet Volume 9.6; RBC 2.07 m/uL (4.30-5.90); RDW 16.9 % (11.5-15.5); WBC 24.4 k/uL (3.8-10.6)
[2017-05-26] MEDS: CARVEDILOL 12.5 MG TAB PO SCH (09:38)
[2017-05-26] MEDS: FERROUS SULFATE 325 MG TAB PO SCH (09:38)
[2017-05-26] MEDS: ISOSORBIDE MONONITRATE ER 30 MG TAB.ER.24H PO SCH (09:38)
[2017-05-26] MEDS: cloNIDine HCL 0.1 MG TAB PO SCH (09:38)
[2017-05-26] MEDS: SEVELAMER 800 MG TAB PO SCH ×2 (09:38→12:58)
[2017-05-26] MEDS: predniSONE 20 MG TAB PO SCH (09:39)
[2017-05-26] MEDS: VITAMIN E (DL,TOCOPHERYL ACET) 400 UNIT CAP PO SCH (09:39)
[2017-05-26] MEDS: SODIUM BICARBONATE TAB 650 MG TAB PO SCH (09:39)
[2017-05-26 09:45] LABS: HGB 5.9 gm/dL (13.0-17.5); INR 1.4 (<1.2); Partial Thromboplastin Time 39.6 sec (22.0-30.0); Prothrombin Time 14.1 sec (9.0-12.0)
[2017-05-26 09:46] LABS: HCT 18.2 % (39.0-53.0)
[2017-05-26 09:49] LABS: Bilirubin, Delta 0.3 mg/dL (0.0-0.2); Total Bilirubin 0.3 mg/dL (0.2-1.3)
[2017-05-26] MEDS ORDERED: HALOPERIDOL LACTATE 5 MG/ML 1 ML VIAL ONE (10:03)
--- NOTE | 2017-05-26 10:04 | P.PN ---
Subjective Patient is seen in follow-up for acute kidney injury on chronic kidney disease. Patient has chronic kidney disease stage IIIB secondary to nephrosclerosis and diabetic kidney disease with baseline creatinine near 2. His creatinine peaked at 5.8 this admission. Patient appeared quite lethargic on May 13 and ABG was suggestive of mixed metabolic and respiratory acidosis. He was extubated May 19. He is off all vasopressors at this time. History the patient had 2 bloody bowel movements. His hemoglobin was noted to be as low as 4.3. In the last 24 hours he received 3 units of packed red blood cell transfusions. Hemoglobin this morning is 5.9. He has an NG tube in place with output of near 2 L. Patient is quite lethargic. He is nonoliguric. Vital signs are stable. Patient is awake. General: The patient appeared well nourished and normally developed. NG tube in place. HEENT: Head exam is unremarkable. Neck is without jugular venous distension. LUNGS: Scattered rhonchi. Breath sounds decreased. HEART: Rate and Rhythm are regular. First and second heart sounds normal. No murmurs, rubs or gallops. ABDOMEN: Abdominal exam reveals normal bowel sounds. Non-tender and non- distended. EXTREMITITES: 1+ edema. Objective - Vital Signs Vital signs: Vital Signs Temp 98.9 F 05/26/17 05:26 Pulse 81 05/26/17 07:43 Resp 26 H 05/26/17 07:00 BP 107/42 05/26/17 07:00 Pulse Ox 96 05/26/17 07:33 Intake & Output 05/25/17 05/26/17 05/26/17 18:59 06:59 18:59 Intake Total 430 2400 20 Output Total 1197 360 Balance 430 1203 -340 Weight 89.2 kg Intake: IV 120 1780 20 0.9 120 160 KVO 120 20 Sodium Chloride 0.9% 1, 1000 000 ml @ 999 mls/hr IV . Q1H1M ONE Rx#:[id number] Sodium Chloride 0.9% 500 500 ml @ 999 mls/hr IV .Q31M ONE Rx#:[id number] Oral 0 Blood Product 310 620 Rc As-1 Unit 310 [id number] Rc As-1 Unit 310 [id number] Rc Pheresis As-3 Unit 310 [id number] Output: Gastric Drainage 1100 350 Urine 97 10 Other: Voiding Method Indwelling Catheter Indwelling Catheter ABP, PAP, CO, CI - Last Documented Arterial Blood Pressure 95/90 - Labs CBC & Chem 7: 05/26/17 09:20 05/26/17 05:33 Labs: Abnormal Lab Results - Last 24 Hours (Table) 05/25/17 05/25/17 05/25/17 Range/Units 09:15 11:36 12:19 WBC (3.8-10.6) k/uL RBC (4.30-5.90) m/uL Hgb (13.0-17.5) gm/dL Hct (39.0-53.0) % MCHC (31.0-37.0) g/dL RDW (11.5-15.5) % Plt Count (150-450) k/uL Neutrophils # (1.3-7.7) k/uL Lymphocytes # (1.0-4.8) k/uL Monocytes # (0-1.0) k/uL PT (9.0-12.0) sec INR (<1.2) APTT (22.0-30.0) sec ABG Total CO2 (19-24) mmol/L ABG O2 Saturation (94-97) % Sodium 136 L (137-145) mmol/L Potassium (3.5-5.1) mmol/L Carbon Dioxide (22-30) mmol/L BUN 93 H* (9-20) mg/dL Creatinine 2.52 H (0.66-1.25) mg/dL Glucose 57 L (74-99) mg/dL POC Glucose (mg/dL) 101 H (75-99) mg/dL Plasma Lactic Acid Clyde (0.7-2.0) mmol/L Calcium 8.1 L (8.4-10.2) mg/dL Magnesium (1.6-2.3) mg/dL Delta Bilirubin (0.0-0.2) mg/dL Ammonia (<30) umol/L Lactate Dehydrogenase (313-618) U/L Crossmatch See Detail 05/25/17 05/25/17 05/25/17 Range/Units 16:44 21:02 23:54 WBC 20.2 H (3.8-10.6) k/uL RBC 1.65 L (4.30-5.90) m/uL Hgb 4.5 L* D (13.0-17.5) gm/dL Hct 14.7 L* (39.0-53.0) % MCHC 30.4 L (31.0-37.0) g/dL RDW 17.8 H (11.5-15.5) % Plt Count 123 L (150-450) k/uL Neutrophils # 18.7 H (1.3-7.7) k/uL Lymphocytes # 0.4 L (1.0-4.8) k/uL Monocytes # (0-1.0) k/uL PT (9.0-12.0) sec INR (<1.2) APTT (22.0-30.0) sec ABG Total CO2 (19-24) mmol/L ABG O2 Saturation (94-97) % Sodium (137-145) mmol/L Potassium (3.5-5.1) mmol/L Carbon Dioxide (22-30) mmol/L BUN (9-20) mg/dL Creatinine (0.66-1.25) mg/dL Glucose (74-99) mg/dL POC Glucose (mg/dL) 129 H 205 H (75-99) mg/dL Plasma Lactic Acid Clyde (0.7-2.0) mmol/L Calcium (8.4-10.2) mg/dL Magnesium (1.6-2.3) mg/dL Delta Bilirubin (0.0-0.2) mg/dL Ammonia (<30) umol/L Lactate Dehydrogenase (313-618) U/L Crossmatch 05/25/17 05/25/17 05/25/17 Range/Units 23:54 23:54 23:56 WBC (3.8-10.6) k/uL RBC (4.30-5.90) m/uL Hgb (13.0-17.5) gm/dL Hct (39.0-53.0) % MCHC (31.0-37.0) g/dL RDW (11.5-15.5) % Plt Count (150-450) k/uL Neutrophils # (1.3-7.7) k/uL Lymphocytes # (1.0-4.8) k/uL Monocytes # (0-1.0) k/uL PT (9.0-12.0) sec INR (<1.2) APTT (22.0-30.0) sec ABG Total CO2 (19-24) mmol/L ABG O2 Saturation (94-97) % Sodium (137-145) mmol/L Potassium >14.0 H* (3.5-5.1) mmol/L Carbon Dioxide 20 L (22-30) mmol/L BUN 99 H* (9-20) mg/dL Creatinine 2.20 H (0.66-1.25) mg/dL Glucose 187 H (74-99) mg/dL POC Glucose (mg/dL) 207 H (75-99) mg/dL Plasma Lactic Acid Clyde 3.2 H* (0.7-2.0) mmol/L Calcium <1.0 L* (8.4-10.2) mg/dL Magnesium <0.4 L* (1.6-2.3) mg/dL Delta Bilirubin (0.0-0.2) mg/dL Ammonia (<30) umol/L Lactate Dehydrogenase (313-618) U/L Crossmatch 05/26/17 05/26/17 05/26/17 Range/Units 00:20 00:21 00:36 WBC 20.6 H (3.8-10.6) k/uL RBC 1.58 L (4.30-5.90) m/uL Hgb 4.3 L* (13.0-17.5) gm/dL Hct 14.0 L* (39.0-53.0) % MCHC 30.6 L (31.0-37.0) g/dL RDW 18.2 H (11.5-15.5) % Plt Count 142 L (150-450) k/uL Neutrophils # (1.3-7.7) k/uL Lymphocytes # (1.0-4.8) k/uL Monocytes # (0-1.0) k/uL PT (9.0-12.0) sec INR (<1.2) APTT (22.0-30.0) sec ABG Total CO2 26 H (19-24) mmol/L ABG O2 Saturation 98.0 H (94-97) % Sodium (137-145) mmol/L Potassium (3.5-5.1) mmol/L Carbon Dioxide (22-30) mmol/L BUN (9-20) mg/dL Creatinine (0.66-1.25) mg/dL Glucose (74-99) mg/dL POC Glucose (mg/dL) 233 H (75-99) mg/dL Plasma Lactic Acid Clyde (0.7-2.0) mmol/L Calcium (8.4-10.2) mg/dL Magnesium (1.6-2.3) mg/dL Delta Bilirubin (0.0-0.2) mg/dL Ammonia (<30) umol/L Lactate Dehydrogenase (313-618) U/L Crossmatch 05/26/17 05/26/17 05/26/17 Range/Units 00:36 00:36 05:33 WBC (3.8-10.6) k/uL RBC (4.30-5.90) m/uL Hgb (13.0-17.5) gm/dL Hct (39.0-53.0) % MCHC (31.0-37.0) g/dL RDW (11.5-15.5) % Plt Count (150-450) k/uL Neutrophils # (1.3-7.7) k/uL Lymphocytes # (1.0-4.8) k/uL Monocytes # (0-1.0) k/uL PT (9.0-12.0) sec INR (<1.2) APTT (22.0-30.0) sec ABG Total CO2 (19-24) mmol/L ABG O2 Saturation (94-97) % Sodium 136 L (137-145) mmol/L Potassium (3.5-5.1) mmol/L Carbon Dioxide 20 L (22-30) mmol/L BUN 99 H* 116 H* (9-20) mg/dL Creatinine 2.30 H 2.40 H (0.66-1.25) mg/dL Glucose 186 H 236 H (74-99) mg/dL POC Glucose (mg/dL) (75-99) mg/dL Plasma Lactic Acid Clyde 3.0 H* (0.7-2.0) mmol/L Calcium 6.9 L 7.0 L (8.4-10.2) mg/dL Magnesium (1.6-2.3) mg/dL Delta Bilirubin (0.0-0.2) mg/dL Ammonia 75 H (<30) umol/L Lactate Dehydrogenase (313-618) U/L Crossmatch 05/26/17 05/26/17 05/26/17 Range/Units 05:33 09:20 09:20 WBC 24.4 H 24.4 H (3.8-10.6) k/uL RBC 2.44 L 2.07 L (4.30-5.90) m/uL Hgb 6.7 L* D 5.9 L* (13.0-17.5) gm/dL Hct 22.6 L 18.2 L* (39.0-53.0) % MCHC 29.5 L (31.0-37.0) g/dL RDW 16.9 H (11.5-15.5) % Plt Count 130 L 129 L (150-450) k/uL Neutrophils # 22.2 H (1.3-7.7) k/uL Lymphocytes # 0.5 L (1.0-4.8) k/uL Monocytes # 1.6 H (0-1.0) k/uL PT (9.0-12.0) sec INR (<1.2) APTT (22.0-30.0) sec ABG Total CO2 (19-24) mmol/L ABG O2 Saturation (94-97) % Sodium (137-145) mmol/L Potassium (3.5-5.1) mmol/L Carbon Dioxide (22-30) mmol/L BUN (9-20) mg/dL Creatinine (0.66-1.25) mg/dL Glucose (74-99) mg/dL POC Glucose (mg/dL) (75-99) mg/dL Plasma Lactic Acid Clyde (0.7-2.0) mmol/L Calcium (8.4-10.2) mg/dL Magnesium (1.6-2.3) mg/dL Delta Bilirubin 0.3 H (0.0-0.2) mg/dL Ammonia (<30) umol/L Lactate Dehydrogenase 699 H (313-618) U/L Crossmatch 05/26/17 Range/Units 09:20 WBC (3.8-10.6) k/uL RBC (4.30-5.90) m/uL Hgb (13.0-17.5) gm/dL Hct (39.0-53.0) % MCHC (31.0-37.0) g/dL RDW (11.5-15.5) % Plt Count (150-450) k/uL Neutrophils # (1.3-7.7) k/uL Lymphocytes # (1.0-4.8) k/uL Monocytes # (0-1.0) k/uL PT 14.1 H (9.0-12.0) sec INR 1.4 H (<1.2) APTT 39.6 H (22.0-30.0) sec ABG Total CO2 (19-24) mmol/L ABG O2 Saturation (94-97) % Sodium (137-145) mmol/L Potassium (3.5-5.1) mmol/L Carbon Dioxide (22-30) mmol/L BUN (9-20) mg/dL Creatinine (0.66-1.25) mg/dL Glucose (74-99) mg/dL POC Glucose (mg/dL) (75-99) mg/dL Plasma Lactic Acid Clyde (0.7-2.0) mmol/L Calcium (8.4-10.2) mg/dL Magnesium (1.6-2.3) mg/dL Delta Bilirubin (0.0-0.2) mg/dL Ammonia (<30) umol/L Lactate Dehydrogenase (313-618) U/L Crossmatch Microbiology - Last 24 Hours (Table) 05/14/17 11:10 Acid Fast Bacilli Smear - Final Bronchial Washings - Random Acid Fast Bacilli Culture - Preliminary Assessment and Plan Plan: Assessment: #1. Acute kidney injury secondary to ATN secondary to severe anemia and pneumonia and further worsened with the use of diuretics and MIC inhibitor. Patient was also hypotensive requiring vasopressors. Postvoid residual was 170. Creatinine peaked at 5.8 this admission. He was started on hemodialysis on May 14 and there is no evidence of renal recovery at this time. BUN is disproportionately elevated which is partially due to GI bleed. #2. Chronic kidney disease stage IIIB secondary to nephrosclerosis and diabetic kidney disease with baseline creatinine near 2. #3. Hyperkalemia secondary to acute kidney injury and metabolic acidosis. Resolved. #4. Metabolic acidosis secondary to acute kidney injury. Respiratory acidosis present as well. #5. Pneumonia, maintain on antibiotics. #6. Anemia with severe iron deficiency, status post 3 doses of IV iron, DDAVP and blood transfusions. Now noted to have a severe GI bleed. #7. Hyperphosphatemia secondary to acute kidney injury. Plan: Hemodialysis today with goal 2 liters ultrafiltration.. Maintain De Dios catheter for accurate I's and os. Maintain Renvela with meals. Maintain Aranesp. Continue Lasix 80 mg twice daily. Patient to receive 2 more units of blood today. GI following. Plan for bedside EGD today. Vascular surgery following. Patient currently unstable to receive a permacath. CODE STATUS to be discussed with the family as well.
[2017-05-26 10:23] LABS: Reticulocyte % 2.7 % (0.5-2.0)
[2017-05-26] MEDS ORDERED: HALOPERIDOL LACTATE 5 MG/ML 1 ML VIAL IVP PRN (10:26)
[2017-05-26] MEDS: FUROSEMIDE 80 MG TAB PO SCH (10:27)
[2017-05-26] MEDS: INSULIN LISPRO (humaLOG) 300 UNIT/3 ML VIAL SQ SCH ×2 (10:46→12:58)
[2017-05-26 10:47] LABS: Glucose,Whole Blood 294 mg/dL (75-99)
[2017-05-26 11:37] VITALS: TEMP 99.7
[2017-05-26] MEDS ORDERED: HEPARIN SODIUM,PORCINE 5,000 UNIT/ML 1 ML VIAL ONE (11:37)
--- NOTE | 2017-05-26 12:29 | P.PN ---
Subjective Progress Note Date: 05/26/17 Principal diagnosis: Acute hypoxic respiratory failure secondary to pneumonia, congestive heart failure, underlying COPD and fluid volume overload. The patient is seen again today 05/25/2017 in follow-up on the selective care unit. He remains alert, confused to place and time. He is currently on 6 L of high flow nasal cannula to maintain O2 saturations in the 90s. He's been afebrile hemodynamically stable. White count improved to 17.5. Hemoglobin remains at 6.0. Platelet count 123,000. He has received a total of 2 units of packed red blood cells this admission thus far. He remains on hemodialysis per nephrology. He has a right femoral temporary dialysis catheter in place. The plan is for hemodialysis today with a goal of 2 L ultrafiltration. He may require 1 unit of packed blood cells during the dialysis as well. She was seen again today 05/26/2017 in follow-up in the intensive care unit. He had increasing confusion last night. A computed tomography scan of the brain revealed no acute intracranial abnormality. The patient ended up being transferred into the ICU after developing nausea vomiting coffee brown emesis and dark tarry stools. Abdominal x-ray revealed markedly dilated stomach consistent with gastroparesis and gastric outflow obstruction. His hemoglobin had dropped to 4.5. A nasogastric tube was placed and 2 L of coffee-ground emesis was removed. The plan is for EGD today. The patient is also to receive hemodialysis. BUN 99, creatinine 2.20. Gas at 3.2. Current hemoglobin 5.9. Platelets 129,000. INR 1.4. He is received a total of 5 units of transfused packed red blood cells with a 6th one pending. He remains quite confused, agitated and restless. Arterial blood gases reveal a pO2 of 103, pCO2 of 37 and a pH of 7.44 her chest x-ray revealed no active cardiopulmonary process. He continues to maintain a good O2 saturations up to 100% on 4.5 L/m per nasal cannula. Currently hemodynamically stable not on pressors. Objective - Vital Signs Vital signs: Vital Signs Temp 99.7 F H 05/26/17 08:00 Pulse 76 05/26/17 11:36 Resp 34 H 05/26/17 11:36 BP 101/48 05/26/17 11:36 Pulse Ox 100 05/26/17 11:36 Intake & Output 05/25/17 05/26/17 05/26/17 18:59 06:59 18:59 Intake Total 430 2400 100 Output Total 1197 385 Balance 430 1203 -285 Weight 89.2 kg Intake: IV 120 1780 100 0.9 120 160 KVO 120 100 Sodium Chloride 0.9% 1, 1000 000 ml @ 999 mls/hr IV . Q1H1M ONE Rx#:[id number] Sodium Chloride 0.9% 500 500 ml @ 999 mls/hr IV .Q31M ONE Rx#:[id number] Oral 0 Blood Product 310 620 Rc As-1 Unit 310 [id number] Rc As-1 Unit 310 [id number] Rc Pheresis As-3 Unit 310 [id number] Output: Gastric Drainage 1100 350 Urine 97 35 Other: Voiding Method Indwelling Catheter Indwelling Catheter Indwelling Catheter ABP, PAP, CO, CI - Last Documented Arterial Blood Pressure 95/90 - Exam GENERAL EXAM: Alert, confused, restless. HEAD: Normocephalic. EYES: Normal reaction of pupils, equal size. NOSE: Nasogastric tube secured in place. Clear with pink turbinates. THROAT: No erythema or exudates. NECK: No masses, no JVD. CHEST: No chest wall deformity. Left subclavian pacer in place. LUNGS: Equal air entry with crackles in the bilateral posterior bases.. CVS: S1 and S2 normal with no audible murmur, regular rhythm. ABDOMEN: No hepatosplenomegaly, normal bowel sounds, no guarding or rigidity. SPINE: No scoliosis or deformity SKIN: No rashes CENTRAL NERVOUS SYSTEM: No focal deficits, tone is normal in all 4 extremities. EXTREMITIES: There is a right femoral temporary dialysis catheter in place. There is no peripheral edema. No clubbing, no cyanosis. Peripheral pulses are intact. - Labs CBC & Chem 7: 05/26/17 09:20 05/26/17 05:33 Labs: Abnormal Lab Results - Last 24 Hours (Table) 05/25/17 05/25/17 05/25/17 Range/Units 12:19 16:44 21:02 WBC (3.8-10.6) k/uL RBC (4.30-5.90) m/uL Hgb (13.0-17.5) gm/dL Hct (39.0-53.0) % MCHC (31.0-37.0) g/dL RDW (11.5-15.5) % Plt Count (150-450) k/uL Neutrophils # (1.3-7.7) k/uL Lymphocytes # (1.0-4.8) k/uL Monocytes # (0-1.0) k/uL Retic Count (0.5-2.0) % PT (9.0-12.0) sec INR (<1.2) APTT (22.0-30.0) sec ABG Total CO2 (19-24) mmol/L ABG O2 Saturation (94-97) % Sodium (137-145) mmol/L Potassium (3.5-5.1) mmol/L Carbon Dioxide (22-30) mmol/L BUN (9-20) mg/dL Creatinine (0.66-1.25) mg/dL Glucose (74-99) mg/dL POC Glucose (mg/dL) 129 H 205 H (75-99) mg/dL Plasma Lactic Acid Clyde (0.7-2.0) mmol/L Calcium (8.4-10.2) mg/dL Magnesium (1.6-2.3) mg/dL Delta Bilirubin (0.0-0.2) mg/dL Ammonia (<30) umol/L Lactate Dehydrogenase (313-618) U/L Crossmatch See Detail 05/25/17 05/25/17 05/25/17 Range/Units 23:54 23:54 23:54 WBC 20.2 H (3.8-10.6) k/uL RBC 1.65 L (4.30-5.90) m/uL Hgb 4.5 L* D (13.0-17.5) gm/dL Hct 14.7 L* (39.0-53.0) % MCHC 30.4 L (31.0-37.0) g/dL RDW 17.8 H (11.5-15.5) % Plt Count 123 L (150-450) k/uL Neutrophils # 18.7 H (1.3-7.7) k/uL Lymphocytes # 0.4 L (1.0-4.8) k/uL Monocytes # (0-1.0) k/uL Retic Count (0.5-2.0) % PT (9.0-12.0) sec INR (<1.2) APTT (22.0-30.0) sec ABG Total CO2 (19-24) mmol/L ABG O2 Saturation (94-97) % Sodium (137-145) mmol/L Potassium >14.0 H* (3.5-5.1) mmol/L Carbon Dioxide 20 L (22-30) mmol/L BUN 99 H* (9-20) mg/dL Creatinine 2.20 H (0.66-1.25) mg/dL Glucose 187 H (74-99) mg/dL POC Glucose (mg/dL) (75-99) mg/dL Plasma Lactic Acid Clyde 3.2 H* (0.7-2.0) mmol/L Calcium <1.0 L* (8.4-10.2) mg/dL Magnesium <0.4 L* (1.6-2.3) mg/dL Delta Bilirubin (0.0-0.2) mg/dL Ammonia (<30) umol/L Lactate Dehydrogenase (313-618) U/L Crossmatch 05/25/17 05/26/17 05/26/17 Range/Units 23:56 00:20 00:21 WBC (3.8-10.6) k/uL RBC (4.30-5.90) m/uL Hgb (13.0-17.5) gm/dL Hct (39.0-53.0) % MCHC (31.0-37.0) g/dL RDW (11.5-15.5) % Plt Count (150-450) k/uL Neutrophils # (1.3-7.7) k/uL Lymphocytes # (1.0-4.8) k/uL Monocytes # (0-1.0) k/uL Retic Count (0.5-2.0) % PT (9.0-12.0) sec INR (<1.2) APTT (22.0-30.0) sec ABG Total CO2 26 H (19-24) mmol/L ABG O2 Saturation 98.0 H (94-97) % Sodium (137-145) mmol/L Potassium (3.5-5.1) mmol/L Carbon Dioxide (22-30) mmol/L BUN (9-20) mg/dL Creatinine (0.66-1.25) mg/dL Glucose (74-99) mg/dL POC Glucose (mg/dL) 207 H 233 H (75-99) mg/dL Plasma Lactic Acid Clyde (0.7-2.0) mmol/L Calcium (8.4-10.2) mg/dL Magnesium (1.6-2.3) mg/dL Delta Bilirubin (0.0-0.2) mg/dL Ammonia (<30) umol/L Lactate Dehydrogenase (313-618) U/L Crossmatch 05/26/17 05/26/17 05/26/17 Range/Units 00:36 00:36 00:36 WBC 20.6 H (3.8-10.6) k/uL RBC 1.58 L (4.30-5.90) m/uL Hgb 4.3 L* (13.0-17.5) gm/dL Hct 14.0 L* (39.0-53.0) % MCHC 30.6 L (31.0-37.0) g/dL RDW 18.2 H (11.5-15.5) % Plt Count 142 L (150-450) k/uL Neutrophils # (1.3-7.7) k/uL Lymphocytes # (1.0-4.8) k/uL Monocytes # (0-1.0) k/uL Retic Count (0.5-2.0) % PT (9.0-12.0) sec INR (<1.2) APTT (22.0-30.0) sec ABG Total CO2 (19-24) mmol/L ABG O2 Saturation (94-97) % Sodium (137-145) mmol/L Potassium (3.5-5.1) mmol/L Carbon Dioxide (22-30) mmol/L BUN 99 H* (9-20) mg/dL Creatinine 2.30 H (0.66-1.25) mg/dL Glucose 186 H (74-99) mg/dL POC Glucose (mg/dL) (75-99) mg/dL Plasma Lactic Acid Clyde 3.0 H* (0.7-2.0) mmol/L Calcium 6.9 L (8.4-10.2) mg/dL Magnesium (1.6-2.3) mg/dL Delta Bilirubin (0.0-0.2) mg/dL Ammonia 75 H (<30) umol/L Lactate Dehydrogenase (313-618) U/L Crossmatch 05/26/17 05/26/17 05/26/17 Range/Units 05:33 05:33 09:20 WBC 24.4 H 24.4 H (3.8-10.6) k/uL RBC 2.44 L 2.07 L (4.30-5.90) m/uL Hgb 6.7 L* D 5.9 L* (13.0-17.5) gm/dL Hct 22.6 L 18.2 L* (39.0-53.0) % MCHC 29.5 L (31.0-37.0) g/dL RDW 16.9 H (11.5-15.5) % Plt Count 130 L 129 L (150-450) k/uL Neutrophils # 22.2 H (1.3-7.7) k/uL Lymphocytes # 0.5 L (1.0-4.8) k/uL Monocytes # 1.6 H (0-1.0) k/uL Retic Count (0.5-2.0) % PT (9.0-12.0) sec INR (<1.2) APTT (22.0-30.0) sec ABG Total CO2 (19-24) mmol/L ABG O2 Saturation (94-97) % Sodium 136 L (137-145) mmol/L Potassium (3.5-5.1) mmol/L Carbon Dioxide 20 L (22-30) mmol/L BUN 116 H* (9-20) mg/dL Creatinine 2.40 H (0.66-1.25) mg/dL Glucose 236 H (74-99) mg/dL POC Glucose (mg/dL) (75-99) mg/dL Plasma Lactic Acid Clyde (0.7-2.0) mmol/L Calcium 7.0 L (8.4-10.2) mg/dL Magnesium (1.6-2.3) mg/dL Delta Bilirubin (0.0-0.2) mg/dL Ammonia (<30) umol/L Lactate Dehydrogenase (313-618) U/L Crossmatch 05/26/17 05/26/17 05/26/17 Range/Units 09:20 09:20 09:20 WBC (3.8-10.6) k/uL RBC (4.30-5.90) m/uL Hgb (13.0-17.5) gm/dL Hct (39.0-53.0) % MCHC (31.0-37.0) g/dL RDW (11.5-15.5) % Plt Count (150-450) k/uL Neutrophils # (1.3-7.7) k/uL Lymphocytes # (1.0-4.8) k/uL Monocytes # (0-1.0) k/uL Retic Count 2.7 H (0.5-2.0) % PT 14.1 H (9.0-12.0) sec INR 1.4 H (<1.2) APTT 39.6 H (22.0-30.0) sec ABG Total CO2 (19-24) mmol/L ABG O2 Saturation (94-97) % Sodium (137-145) mmol/L Potassium (3.5-5.1) mmol/L Carbon Dioxide (22-30) mmol/L BUN (9-20) mg/dL Creatinine (0.66-1.25) mg/dL Glucose (74-99) mg/dL POC Glucose (mg/dL) (75-99) mg/dL Plasma Lactic Acid Clyde (0.7-2.0) mmol/L Calcium (8.4-10.2) mg/dL Magnesium (1.6-2.3) mg/dL Delta Bilirubin 0.3 H (0.0-0.2) mg/dL Ammonia (<30) umol/L Lactate Dehydrogenase 699 H (313-618) U/L Crossmatch 05/26/17 Range/Units 10:46 WBC (3.8-10.6) k/uL RBC (4.30-5.90) m/uL Hgb (13.0-17.5) gm/dL Hct (39.0-53.0) % MCHC (31.0-37.0) g/dL RDW (11.5-15.5) % Plt Count (150-450) k/uL Neutrophils # (1.3-7.7) k/uL Lymphocytes # (1.0-4.8) k/uL Monocytes # (0-1.0) k/uL Retic Count (0.5-2.0) % PT (9.0-12.0) sec INR (<1.2) APTT (22.0-30.0) sec ABG Total CO2 (19-24) mmol/L ABG O2 Saturation (94-97) % Sodium (137-145) mmol/L Potassium (3.5-5.1) mmol/L Carbon Dioxide (22-30) mmol/L BUN (9-20) mg/dL Creatinine (0.66-1.25) mg/dL Glucose (74-99) mg/dL POC Glucose (mg/dL) 294 H (75-99) mg/dL Plasma Lactic Acid Clyde (0.7-2.0) mmol/L Calcium (8.4-10.2) mg/dL Magnesium (1.6-2.3) mg/dL Delta Bilirubin (0.0-0.2) mg/dL Ammonia (<30) umol/L Lactate Dehydrogenase (313-618) U/L Crossmatch Microbiology - Last 24 Hours (Table) 05/26/17 05:45 Urine Culture - Preliminary Urine,Catheterized 05/14/17 11:10 Acid Fast Bacilli Smear - Final Bronchial Washings - Random Acid Fast Bacilli Culture - Preliminary Assessment and Plan Assessment: Impression: 1 acute anemia with blood loss secondary to an acute upper GI bleed and possible peptic ulcer disease. Status post 6 units packed red blood 2 acute COPD exacerbation secondary to left lung pneumonia, improving . Patient was extubated 3 hypertension presently under control with multiple medications as noted. 4 diastolic congestion heart failure, ischemic cardiomyopathy and the most recent echocardiogram shows a low normal ejection fraction with an EF around 50- 55%, severely dilated LA, severe pulmonary hypertension with a PA pressure of 68 5 coronary artery disease with previous coronary artery bypass surgery 6 history of cardiac block status post pacemaker insertion/AICD insertion 7 acute on top of chronic renal failure, Being addressed by nephrology. 8 chronic renal failure with stage III to 4 chronic kidney disease, receiving hemodialysis. 9 diabetes mellitus, currently in size Blood sugar control 10 hypertension, oral meds will be adjusted accordingly today. 11 hyperlipidemia. 12 hyperkalemia, improved 15 peripheral vascular disease 14 previous history of GI bleed 15 chronic iron deficiency 16 metabolic acidosis currently improved 17 Address nutritional support via oral intake 18 bleeding from catheter insertion site in the right femoral vein, currently inactive 19 anemia where the patient's hemoglobin is 6.0, transfusion with hemodialysis. Plan: The patient was seen and evaluated by Dr. Ahuja. His chest x-ray and labs were reviewed. The plan is for EGD today. The plan is also for hemodialysis today. The patient's overall prognosis remains quite guarded and poor. We'll be talking with the patient's regarding CODE STATUS once she arrives. In the interim, we'll continue to follow and make further recommendations based on his clinical status. I, the cosigning physician, have performed a history and physical examination of the patient. Lung sounds have crackles in the bilateral posterior bases. Diminished throughout. I have discussed the findings and assessment with my nurse practitioner, Ashleigh Byrd. I have reviewed the nurse practitioner's note and agree with the documented findings and plan of care. Time with Patient: Greater than 30
[2017-05-26 12:32] VITALS: BP 94/47; RESP 36
[2017-05-26 12:45] VITALS: PULSE 71
[2017-05-26 14:25] LABS: Hemoglobin A1C 5.3 % (4.2-6.1)
[2017-05-26 14:45] VITALS: BMI 29.0
[2017-05-26] MEDS ORDERED: LEVOFLOXACIN 500 MG TAB PO SCH (15:00)
--- NOTE | 2017-05-26 16:31 | P.CONS ---
History of Present Illness - Reason for Consult Consult date: 05/26/17 concerns for hemolytic anemia Requesting physician: Arturo Jerez - Chief Complaint CHF exacerbation - History of Present Illness Pt seen today in ICU, he has been inpatient for 15 days, CHF, pneumonia, renal failure requiring dialysis and sepsis. We have been asked to see pt for concerns of hemolysis. Pt is unable to communicate, he is in moderate distress , restless, on monitor he is hypotensive, irregular heart rate Review of Systems ROS unobtainable: due to mental status Past Medical History Past Medical History: Coronary Artery Disease (CAD), Chest Pain / Angina, Heart Failure, Diabetes Mellitus, Hyperlipidemia, Hypertension, Myocardial Infarction ([place]), Renal Disease Additional Past Medical History / Comment(s): Coronary artery disease, single chamber AICD/pacer, CHF/ischemic cardiomyopathy, chronic renal failure, diabetes mellitus, history of right elbow bursitis, gout, previous myocardial infarction, COPD, chronic anemia, history of hyperkalemia, hyperlipidemia, hypertension, peripheral vascular disease, secondary pulmonary hypertension, previous history of GI bleeding, history of iron deficiency. Last Myocardial Infarction Date:: 10/05/15 History of Any Multi-Drug Resistant Organisms: None Reported Past Surgical History: Coronary Bypass/CABG, Heart Catheterization, Heart Catheterization With Stent, Hernia Repair, Pacemaker Additional Past Surgical History / Comment(s): 10/22/15 upper extremity venogram , 2011 triple bypass at [facility], 2006 PCI with stent cx, 09/2015 PCI with stent to LAD, 10/2015 ccath treat medically, dual chamber pacemaker initial insertion 2004 and replaced in 2011, umbillical hernia repair, several nose sx d/t 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 Defibriliator in january 2016 Past Anesthesia/Blood Transfusion Reactions: No Reported Reaction Date of Last Stent Placement:: 09/2015 Type of Cardiac Device: Permanent Pacemaker, AICD Device Placement Date:: 2011 Past Psychological History: No Psychological Hx Reported Additional Psychological History / Comment(s): Pt states he resides with Shaunna. He is independent. He uses no assistive device. He drives. He has no home care use. Smoking Status: Former smoker Past Alcohol Use History: Daily Additional Past Alcohol Use History / Comment(s): smoked >40 years quit 09-17- , drinks 2 beer daily Past Drug Use History: None Reported - Past Family History Father Family Medical History: CVA/TIA Additional Family Medical History / Comment(s): age 83 had several strokes Mother Family Medical History: Cancer, Liver Disease, Osteoarthritis (OA) Additional Family Medical History / Comment(s): mom passed at age 91, hx breast cancer, emphysema (pt stated she never smoked) Medications and Allergies Home Medications Medication Instructions Recorded Confirmed Type Folic Acid 0.4 mg PO HS 09/10/15 05/11/17 History Nitroglycerin Sl Tabs [Nitrostat] 0.4 mg SUBLINGUAL Q5M PRN 09/10/15 05/11/17 History Clopidogrel [Plavix] 75 mg PO DAILY #30 tab 09/13/15 05/11/17 Rx Aspirin EC [Ecotrin Low Dose] 81 mg PO BID 01/22/16 05/11/17 History Atorvastatin [Lipitor] 40 mg PO HS 07/05/16 05/11/17 History HYDROcodone/APAP 7.5-325MG [Aurora 1 tab PO Q6HR PRN 07/05/16 05/11/17 History 7.5-325] Allopurinol [Zyloprim] 100 mg PO DAILY #30 tab 07/08/16 05/11/17 Rx Lisinopril [Zestril] 20 mg PO DAILY 08/04/16 05/11/17 History Insulin NPH Human Isophane 12 unit SQ HS 01/06/17 05/11/17 History [Novolin N] hydrALAZINE HCL [Apresoline] 25 mg PO BID 01/06/17 05/11/17 History Carvedilol [Coreg*] 12.5 mg PO HS 01/25/17 05/11/17 History Carvedilol [Coreg*] 25 mg PO DAILY 01/25/17 05/11/17 History Omeprazole [PriLOSEC] 40 mg PO DAILY 01/25/17 05/11/17 History Vitamin E (Dl,Tocopheryl Acet) 400 unit PO DAILY 01/25/17 05/11/17 History [Vitamin E] glipiZIDE [Glucotrol] 10 mg PO BID 01/25/17 05/11/17 History Ferrous Sulfate [Iron (65 MG 325 mg PO BID-W/MEALS #60 tab 01/27/17 05/11/17 Rx Elemental)] Torsemide [Demadex] 20 mg PO DAILY #30 tab 01/27/17 05/11/17 Rx Acetaminophen [Tylenol Extra 1,000 mg PO TID 05/11/17 05/11/17 History Strength] Clindamycin HCl [Clindamycin HCl] 300 mg PO Q8H 05/11/17 05/11/17 History Allergies Allergy/AdvReac Type Severity Reaction Status Date / Time cephalexin monohydrate AdvReac Unknown Verified 05/11/17 08:01 [From Keflex] Penicillins AdvReac Nausea & Verified 05/11/17 08:01 Vomiting Sulfa (Sulfonamide AdvReac Nausea & Verified 05/11/17 08:01 Antibiotics) Vomiting Physical Exam Vitals: Vital Signs Temp Pulse Pulse Resp BP BP BP 05/26/17 12:00 59 L 71 36 H 94/47 05/26/17 11:36 76 34 H 101/48 05/26/17 11:29 59 L 05/26/17 11:18 59 L 05/26/17 11:00 71 21 101/48 05/26/17 10:00 62 18 76/29 05/26/17 09:00 66 20 91/43 05/26/17 08:00 99.7 F H 60 20 135/47 05/26/17 07:43 81 05/26/17 07:33 67 05/26/17 07:00 60 26 H 107/42 05/26/17 06:00 92 23 109/47 05/26/17 05:26 98.9 F 64 23 100/45 05/26/17 05:22 95.7 F L 64 21 101/43 05/26/17 05:00 88 18 101/43 05/26/17 04:00 70 23 116/44 05/26/17 03:54 99 F 79 20 116/44 05/26/17 03:25 100.4 F H 60 22 114/52 05/26/17 03:24 100.4 F H 60 22 114/52 05/26/17 03:23 100 F H 72 20 110/55 05/26/17 03:14 100 F H 68 22 116/54 05/26/17 02:48 100.2 F H 70 25 H 110/50 05/26/17 02:14 86 23 114/52 05/26/17 02:00 98.9 F 78 25 H 95/50 05/26/17 01:45 98.3 F 90 28 H 94/44 05/26/17 01:30 99.5 F 90 28 H 95/47 05/26/17 00:15 80/42 05/26/17 00:00 69 30 H 77/39 05/25/17 23:31 66 22 05/25/17 23:30 71 22 90/38 05/25/17 20:00 99.7 F H 66 20 148/65 05/25/17 19:52 80 05/25/17 19:38 78 05/25/17 16:39 98.1 F 75 18 113/65 Pulse Ox 05/26/17 12:00 100 05/26/17 11:36 100 05/26/17 11:29 05/26/17 11:18 05/26/17 11:00 05/26/17 10:00 05/26/17 09:00 05/26/17 08:00 94 L 05/26/17 07:43 05/26/17 07:33 96 05/26/17 07:00 100 05/26/17 06:00 100 05/26/17 05:26 100 05/26/17 05:22 05/26/17 05:00 99 05/26/17 04:00 99 05/26/17 03:54 05/26/17 03:25 100 05/26/17 03:24 100 05/26/17 03:23 100 05/26/17 03:14 100 05/26/17 02:48 100 05/26/17 02:14 100 05/26/17 02:00 05/26/17 01:45 05/26/17 01:30 100 05/26/17 00:15 05/26/17 00:00 05/25/17 23:31 05/25/17 23:30 100 05/25/17 20:00 96 05/25/17 19:52 05/25/17 19:38 05/25/17 16:39 99 Intake and Output 05/26/17 05/26/17 05/26/17 06:59 14:59 22:59 Intake Total 2240 120 Output Total 1197 385 Balance 1043 -265 Intake: IV 1620 120 KVO 120 120 Sodium Chloride 0.9% 1, 1000 000 ml @ 999 mls/hr IV . Q1H1M ONE Rx#:[id number] Sodium Chloride 0.9% 500 500 ml @ 999 mls/hr IV .Q31M ONE Rx#:[id number] Blood Product 620 Rc As-1 Unit 310 [id number] Rc Pheresis As-3 Unit 310 [id number] Output: Gastric Drainage 1100 350 Urine 97 35 Other: Voiding Method Indwelling Catheter Indwelling Catheter Weight 89.2 kg 89.2 kg Patient Weight 05/27/17 06:59 Weight 89.2 kg - Constitutional General appearance: disheveled, obese, severe distress - Respiratory Respiratory: bilateral: rales - Cardiovascular Rhythm: irregularly irregular leg Peripheral Edema: bilateral: 2+ - Gastrointestinal General gastrointestinal: normal bowel sounds, soft - Integumentary Integumentary: pale - Neurologic unable to assess - Psychiatric Psychiatric: no A&O x's 3, no appropriate affect, no intact judgment & insight Results CBC & Chem 7: 05/26/17 09:20 05/26/17 05:33 Labs: Abnormal Lab Results - Last 24 Hours (Table) 05/25/17 05/25/17 05/25/17 Range/Units 12:19 16:44 21:02 WBC (3.8-10.6) k/uL RBC (4.30-5.90) m/uL Hgb (13.0-17.5) gm/dL Hct (39.0-53.0) % MCHC (31.0-37.0) g/dL RDW (11.5-15.5) % Plt Count (150-450) k/uL Neutrophils # (1.3-7.7) k/uL Lymphocytes # (1.0-4.8) k/uL Monocytes # (0-1.0) k/uL Retic Count (0.5-2.0) % PT (9.0-12.0) sec INR (<1.2) APTT (22.0-30.0) sec ABG Total CO2 (19-24) mmol/L ABG O2 Saturation (94-97) % Sodium (137-145) mmol/L Potassium (3.5-5.1) mmol/L Carbon Dioxide (22-30) mmol/L BUN (9-20) mg/dL Creatinine (0.66-1.25) mg/dL Glucose (74-99) mg/dL POC Glucose (mg/dL) 129 H 205 H (75-99) mg/dL Plasma Lactic Acid Clyde (0.7-2.0) mmol/L Calcium (8.4-10.2) mg/dL Magnesium (1.6-2.3) mg/dL Delta Bilirubin (0.0-0.2) mg/dL Ammonia (<30) umol/L Lactate Dehydrogenase (313-618) U/L Crossmatch See Detail 05/25/17 05/25/17 05/25/17 Range/Units 23:54 23:54 23:54 WBC 20.2 H (3.8-10.6) k/uL RBC 1.65 L (4.30-5.90) m/uL Hgb 4.5 L* D (13.0-17.5) gm/dL Hct 14.7 L* (39.0-53.0) % MCHC 30.4 L (31.0-37.0) g/dL RDW 17.8 H (11.5-15.5) % Plt Count 123 L (150-450) k/uL Neutrophils # 18.7 H (1.3-7.7) k/uL Lymphocytes # 0.4 L (1.0-4.8) k/uL Monocytes # (0-1.0) k/uL Retic Count (0.5-2.0) % PT (9.0-12.0) sec INR (<1.2) APTT (22.0-30.0) sec ABG Total CO2 (19-24) mmol/L ABG O2 Saturation (94-97) % Sodium (137-145) mmol/L Potassium >14.0 H* (3.5-5.1) mmol/L Carbon Dioxide 20 L (22-30) mmol/L BUN 99 H* (9-20) mg/dL Creatinine 2.20 H (0.66-1.25) mg/dL Glucose 187 H (74-99) mg/dL POC Glucose (mg/dL) (75-99) mg/dL Plasma Lactic Acid Clyde 3.2 H* (0.7-2.0) mmol/L Calcium <1.0 L* (8.4-10.2) mg/dL Magnesium <0.4 L* (1.6-2.3) mg/dL Delta Bilirubin (0.0-0.2) mg/dL Ammonia (<30) umol/L Lactate Dehydrogenase (313-618) U/L Crossmatch 05/25/17 05/26/17 05/26/17 Range/Units 23:56 00:20 00:21 WBC (3.8-10.6) k/uL RBC (4.30-5.90) m/uL Hgb (13.0-17.5) gm/dL Hct (39.0-53.0) % MCHC (31.0-37.0) g/dL RDW (11.5-15.5) % Plt Count (150-450) k/uL Neutrophils # (1.3-7.7) k/uL Lymphocytes # (1.0-4.8) k/uL Monocytes # (0-1.0) k/uL Retic Count (0.5-2.0) % PT (9.0-12.0) sec INR (<1.2) APTT (22.0-30.0) sec ABG Total CO2 26 H (19-24) mmol/L ABG O2 Saturation 98.0 H (94-97) % Sodium (137-145) mmol/L Potassium (3.5-5.1) mmol/L Carbon Dioxide (22-30) mmol/L BUN (9-20) mg/dL Creatinine (0.66-1.25) mg/dL Glucose (74-99) mg/dL POC Glucose (mg/dL) 207 H 233 H (75-99) mg/dL Plasma Lactic Acid Clyde (0.7-2.0) mmol/L Calcium (8.4-10.2) mg/dL Magnesium (1.6-2.3) mg/dL Delta Bilirubin (0.0-0.2) mg/dL Ammonia (<30) umol/L Lactate Dehydrogenase (313-618) U/L Crossmatch 05/26/17 05/26/17 05/26/17 Range/Units 00:36 00:36 00:36 WBC 20.6 H (3.8-10.6) k/uL RBC 1.58 L (4.30-5.90) m/uL Hgb 4.3 L* (13.0-17.5) gm/dL Hct 14.0 L* (39.0-53.0) % MCHC 30.6 L (31.0-37.0) g/dL RDW 18.2 H (11.5-15.5) % Plt Count 142 L (150-450) k/uL Neutrophils # (1.3-7.7) k/uL Lymphocytes # (1.0-4.8) k/uL Monocytes # (0-1.0) k/uL Retic Count (0.5-2.0) % PT (9.0-12.0) sec INR (<1.2) APTT (22.0-30.0) sec ABG Total CO2 (19-24) mmol/L ABG O2 Saturation (94-97) % Sodium (137-145) mmol/L Potassium (3.5-5.1) mmol/L Carbon Dioxide (22-30) mmol/L BUN 99 H* (9-20) mg/dL Creatinine 2.30 H (0.66-1.25) mg/dL Glucose 186 H (74-99) mg/dL POC Glucose (mg/dL) (75-99) mg/dL Plasma Lactic Acid Clyde 3.0 H* (0.7-2.0) mmol/L Calcium 6.9 L (8.4-10.2) mg/dL Magnesium (1.6-2.3) mg/dL Delta Bilirubin (0.0-0.2) mg/dL Ammonia 75 H (<30) umol/L Lactate Dehydrogenase (313-618) U/L Crossmatch 05/26/17 05/26/17 05/26/17 Range/Units 05:33 05:33 09:20 WBC 24.4 H 24.4 H (3.8-10.6) k/uL RBC 2.44 L 2.07 L (4.30-5.90) m/uL Hgb 6.7 L* D 5.9 L* (13.0-17.5) gm/dL Hct 22.6 L 18.2 L* (39.0-53.0) % MCHC 29.5 L (31.0-37.0) g/dL RDW 16.9 H (11.5-15.5) % Plt Count 130 L 129 L (150-450) k/uL Neutrophils # 22.2 H (1.3-7.7) k/uL Lymphocytes # 0.5 L (1.0-4.8) k/uL Monocytes # 1.6 H (0-1.0) k/uL Retic Count (0.5-2.0) % PT (9.0-12.0) sec INR (<1.2) APTT (22.0-30.0) sec ABG Total CO2 (19-24) mmol/L ABG O2 Saturation (94-97) % Sodium 136 L (137-145) mmol/L Potassium (3.5-5.1) mmol/L Carbon Dioxide 20 L (22-30) mmol/L BUN 116 H* (9-20) mg/dL Creatinine 2.40 H (0.66-1.25) mg/dL Glucose 236 H (74-99) mg/dL POC Glucose (mg/dL) (75-99) mg/dL Plasma Lactic Acid Clyde (0.7-2.0) mmol/L Calcium 7.0 L (8.4-10.2) mg/dL Magnesium (1.6-2.3) mg/dL Delta Bilirubin (0.0-0.2) mg/dL Ammonia (<30) umol/L Lactate Dehydrogenase (313-618) U/L Crossmatch 05/26/17 05/26/17 05/26/17 Range/Units 09:20 09:20 09:20 WBC (3.8-10.6) k/uL RBC (4.30-5.90) m/uL Hgb (13.0-17.5) gm/dL Hct (39.0-53.0) % MCHC (31.0-37.0) g/dL RDW (11.5-15.5) % Plt Count (150-450) k/uL Neutrophils # (1.3-7.7) k/uL Lymphocytes # (1.0-4.8) k/uL Monocytes # (0-1.0) k/uL Retic Count 2.7 H (0.5-2.0) % PT 14.1 H (9.0-12.0) sec INR 1.4 H (<1.2) APTT 39.6 H (22.0-30.0) sec ABG Total CO2 (19-24) mmol/L ABG O2 Saturation (94-97) % Sodium (137-145) mmol/L Potassium (3.5-5.1) mmol/L Carbon Dioxide (22-30) mmol/L BUN (9-20) mg/dL Creatinine (0.66-1.25) mg/dL Glucose (74-99) mg/dL POC Glucose (mg/dL) (75-99) mg/dL Plasma Lactic Acid Clyde (0.7-2.0) mmol/L Calcium (8.4-10.2) mg/dL Magnesium (1.6-2.3) mg/dL Delta Bilirubin 0.3 H (0.0-0.2) mg/dL Ammonia (<30) umol/L Lactate Dehydrogenase 699 H (313-618) U/L Crossmatch 05/26/17 Range/Units 10:46 WBC (3.8-10.6) k/uL RBC (4.30-5.90) m/uL Hgb (13.0-17.5) gm/dL Hct (39.0-53.0) % MCHC (31.0-37.0) g/dL RDW (11.5-15.5) % Plt Count (150-450) k/uL Neutrophils # (1.3-7.7) k/uL Lymphocytes # (1.0-4.8) k/uL Monocytes # (0-1.0) k/uL Retic Count (0.5-2.0) % PT (9.0-12.0) sec INR (<1.2) APTT (22.0-30.0) sec ABG Total CO2 (19-24) mmol/L ABG O2 Saturation (94-97) % Sodium (137-145) mmol/L Potassium (3.5-5.1) mmol/L Carbon Dioxide (22-30) mmol/L BUN (9-20) mg/dL Creatinine (0.66-1.25) mg/dL Glucose (74-99) mg/dL POC Glucose (mg/dL) 294 H (75-99) mg/dL Plasma Lactic Acid Clyde (0.7-2.0) mmol/L Calcium (8.4-10.2) mg/dL Magnesium (1.6-2.3) mg/dL Delta Bilirubin (0.0-0.2) mg/dL Ammonia (<30) umol/L Lactate Dehydrogenase (313-618) U/L Crossmatch Microbiology - Last 24 Hours (Table) 05/26/17 05:45 Urine Culture - Preliminary Urine,Catheterized 05/14/17 11:10 Acid Fast Bacilli Smear - Final Bronchial Washings - Random Acid Fast Bacilli Culture - Preliminary Assessment and Plan (1) Severe anemia Narrative/Plan: S/P multiple transfusions, pt initially had appropriate response to transfusion but Hgb cont to drop, he then had no response to most recent unit of blood. Labs to evaluate for intravascular hemolysis have been ordered, will monitor closely for results. Unfortunately, pt has multiple insults that are contributing to his anemia including sepsis, inflammation, acute on chronic kidney disease, antiplatelet agent use and occult positive stool so, possibly acute blood loss as well. Will await results of work up and make recommendations for further transfusions. Status: Acute Priority: High Code(s): D64.9 - ANEMIA, UNSPECIFIED SNOMED Code(s): 459546994
--- NOTE | 2017-05-27 06:21 | DS ---
DISCHARGE SUMMARY DATE OF ADMISSION: 05/11/2017 DATE PATIENT : 05/26/2017 FINAL DIAGNOSES: 1. Bilateral pneumonia suspect gram-negative organism causing acute hypoxic respiratory failure with being on ventilator assistance, present on admission. 2. Acute chronic obstructive pulmonary disease exacerbation. 3. Essential hypertension with urgency. 4. Acute on chronic congestive heart failure exacerbation from systolic and diastolic dysfunction ejection fraction 40% to 50% secondary to hypertensive heart disease. 5. Severe secondary pulmonary hypertension secondary to chronic obstructive pulmonary disease. 6. Coronary artery disease with prior history of coronary artery bypass. 7. AICD with pacemaker in place. 8. Acute renal failure multifactorial probably acute tubular necrosis, now advanced to end-stage being on hemodialysis. 9. Chronic kidney disease with probably hypertensive nephrosclerosis stage IV from diabetic nephropathy and hypertensive nephrosclerosis. 10.Hyperlipidemia. 11.Hyperkalemia. 12.Peripheral artery disease. 13.Metabolic acidosis. CONSULTATIONS: Dr. Carbajal from Cardiology; Dr. Pak from Nephrology; Dr. Jimenez from Vascular Surgery, Dr. Huddleston from Pulmonary. HOSPITAL COURSE: The patient of Dr. Staples'katie presented with pneumonia, also had CHF exacerbation. Subsequently went into renal failure and had to be intubated. The patient was extubated, but continued to slowly go downhill. The patient also had a GI bleed, felt to be gastric. CAUSE OF : Acute gastrointestinal bleed. I spoke to the patient's , patient's sister and [id number] today and they did express that patient had been suffering for quite a while and the patient did succumb to his underlying conditions. MMODL / IJN: [id number] /
== END 2017-05-26 13:04 | disposition expired | DRG 166 ==
LOC: EC 00:08 → 6SEL 02:05 → 6ICU 05-13 11:35 → 6SEL 05-24 06:16 → 6ICU 05-26 00:24
PROVIDERS: ADMIT Hospitalist; ATTEND Hospitalist
PROC: 0B9J8ZX Drainage of Left Lower Lung Lobe, Via Natural or Artificial Opening Endoscopic, Diagnostic (ICD-10-PCS; principal; 2017-05-14)
PROC: 0BH18EZ Insertion of Endotracheal Airway into Trachea, Via Natural or Artificial Opening Endoscopic (ICD-10-PCS; principal; 2017-05-14)
PROC: 5A1955Z Respiratory Ventilation, Greater than 96 Consecutive Hours (ICD-10-PCS; principal; 2017-05-14)
PROC: 4A133B1 Monitoring of Arterial Pressure, Peripheral, Percutaneous Approach (ICD-10-PCS; 2017-05-14)
PROC: 4A133J1 Monitoring of Arterial Pulse, Peripheral, Percutaneous Approach (ICD-10-PCS; 2017-05-14)
PROC: 03HY32Z Insertion of Monitoring Device into Upper Artery, Percutaneous Approach (ICD-10-PCS; 2017-05-14)
PROC: 06HM33Z Insertion of Infusion Device into Right Femoral Vein, Percutaneous Approach (ICD-10-PCS; 2017-05-14)
DX: J15.6 Pneumonia due to other Gram-negative bacteria (principal); N17.0 Acute kidney failure with tubular necrosis; G93.40 Encephalopathy, unspecified; I50.43 Acute on chronic combined systolic (congestive) and diastolic (congestive) heart failure; J96.01 Acute respiratory failure with hypoxia; J96.02 Acute respiratory failure with hypercapnia; E87.4 Mixed disorder of acid-base balance; K31.1 Adult hypertrophic pyloric stenosis; D69.3 Immune thrombocytopenic purpura; E11.43 Type 2 diabetes mellitus with diabetic autonomic (poly)neuropathy; N18.4 Chronic kidney disease, stage 4 (severe); J44.0 Chronic obstructive pulmonary disease with (acute) lower respiratory infection; K31.84 Gastroparesis; I13.0 Hypertensive heart and chronic kidney disease with heart failure and stage 1 through stage 4 chronic kidney disease, or unspecified chronic kidney disease; D62 Acute posthemorrhagic anemia; K92.2 Gastrointestinal hemorrhage, unspecified; J44.1 Chronic obstructive pulmonary disease with (acute) exacerbation; J18.9 Pneumonia, unspecified organism; E11.21 Type 2 diabetes mellitus with diabetic nephropathy; E11.51 Type 2 diabetes mellitus with diabetic peripheral angiopathy without gangrene; E11.22 Type 2 diabetes mellitus with diabetic chronic kidney disease; D50.9 Iron deficiency anemia, unspecified; D63.8 Anemia in other chronic diseases classified elsewhere; E11.649 Type 2 diabetes mellitus with hypoglycemia without coma; E78.5 Hyperlipidemia, unspecified; E83.39 Other disorders of phosphorus metabolism; E87.5 Hyperkalemia; H70.90 Unspecified mastoiditis, unspecified ear; I25.10 Atherosclerotic heart disease of native coronary artery without angina pectoris; I25.2 Old myocardial infarction; I25.5 Ischemic cardiomyopathy; I27.29 Other secondary pulmonary hypertension; J32.9 Chronic sinusitis, unspecified; M10.9 Gout, unspecified; T38.0X5A Adverse effect of glucocorticoids and synthetic analogues, initial encounter; T50.2X5A Adverse effect of carbonic-anhydrase inhibitors, benzothiadiazides and other diuretics, initial encounter; Z79.02 Long term (current) use of antithrombotics/antiplatelets; Z79.4 Long term (current) use of insulin; Z79.82 Long term (current) use of aspirin; Z79.899 Other long term (current) drug therapy; Z82.3 Family history of stroke; Z82.5 Family history of asthma and other chronic lower respiratory diseases; Z87.11 Personal history of peptic ulcer disease; Z87.891 Personal history of nicotine dependence; Z95.1 Presence of aortocoronary bypass graft; Z95.5 Presence of coronary angioplasty implant and graft; Z95.810 Presence of automatic (implantable) cardiac defibrillator; Z99.2 Dependence on renal dialysis; Z88.1 Allergy status to other antibiotic agents; Z88.0 Allergy status to penicillin; Z88.2 Allergy status to sulfonamides
CPT/HCPCS: 36415; 36600; 70450; 71010; 71250; 74000; 80048; 80053; 80202; 81001; 82140; 82248; 82272; 82550; 82553; 82805; 83010; 83036; 83540; 83550; 83605; 83615; 83735; 83880; 84100; 84132; 84450; 84460; 84484; 85025; 85027; 85045; 85610; 85730; 86705; 86706; 86850; 86900; 86901; 86920; 87040; 87070; 87086; 87102; 87116; 87205; 87206; 87252; 87496; 87498; 87502; 87529; 87798; 88305; 89050; 90935; 93005; 93306; 94002; 94003; 94640; 94660; 94760; 96365; 99285